=== PATIENT | female | born 1940 | race Caucasian/White ===

== ENCOUNTER 2016-06-19 13:05 | Inpatient (IN) | payer OTHER ==
[~2016-06-19] VITALS: Ht 167.6 cm; Wt 118.2 kg
[~2016-06-19 13:05] MED LIST: ASPI81TA21 PO; ATV/1 PO; CARV25TA2 PO; LPT/40 PO; MELO15TA3 PO; METF500T PO; MULTTAB58 PO; NEOM1SOL8 OT; ONDA4TAB46 PO; OXYC-643 PO; WARF3TAB PO; WARF4TAB8 PO; ZNT/150 PO; ZOLP5TAB PO
[2016-06-19] MEDS ORDERED: TRIA0.2580 PO (13:55)
[2016-06-19] MEDS ORDERED: CEFT1INJ26 IM (13:55)
[2016-06-19] MEDS ORDERED: ULT/50 PO (13:55)
[2016-06-19] MEDS ORDERED: APIX1TAB PO (13:55)
[2016-06-19] MEDS ORDERED: ACET500C6 PO (13:55)
--- NOTE | 2016-06-19 14:07 | DIAGNOSTIC IMAGING REPORT ---
CHEST ONE VIEW PORTABLE CLINICAL HISTORY: eval for pnea dyspnea COMPARISON STUDY: 05/03/2013 FINDINGS: Mild chronic megaly. Prominent pulmonary vasculature. Trace pleural fluid left base. IMPRESSION: Mild congestive heart failure Electronically signed by: Georges Conway M.D. 06/19/2016 2:06 PM Dictated Date/Time: 06/19/2016 2:06 PM
[2016-06-19 14:09] LABS: BASO % 0.2 %; BASO ABS # 0.02 K/uL (0-0.2); COMPLETE YES; EOS % 0.8 %; HEMATOCRIT 33.6 % (37-47); IG% 0.5 %; LYMPH % 19.7 %; LYMPH ABS # 2.34 K/uL (1.2-3.4); MEAN CELL VOLUME 85.9 fL (80-100); MEAN CORPUSCULAR HEMOGLOBIN 26.9 pg (25-34); MEAN CORPUSCULAR HGB CONC 31.3 g/dl (32-36); MEAN PLATELET VOLUME 9.5 fL (7.4-10.4); MONO % 10.2 %; NEUT % 68.6 %; PLATELET COUNT 484 K/uL (130-400); RED BLOOD COUNT 3.91 M/uL (4.2-5.4); WHITE BLOOD COUNT 11.86 K/uL (4.8-10.8)
--- NOTE | 2016-06-19 14:12 | DIAGNOSTIC IMAGING REPORT ---
CT SCAN OF THE BRAIN WITHOUT IV CONTRAST CLINICAL HISTORY: Change in mental status. COMPARISON STUDY: No priors. TECHNIQUE: Unenhanced axial CT scan of the brain is performed from the vertex to the skull base. CT DOSE: 537.48 mGy.cm FINDINGS: Brain parenchyma: There are age-related involutional changes noting mild to moderate patchy subcortical and periventricular microangiopathic change. There is no hemorrhage, mass effect, or evidence of acute territorial ischemia by CT criteria. Ramey-white matter is preserved. No extra-axial fluid collection is seen. Ventricles, sulci, cisterns: Prominent secondary to involutional change. Intracranial vasculature: There is atherosclerotic calcification of the cavernous carotid and vertebral arteries. Calvarium: Unremarkable. Sinuses and mastoids: The visualized paranasal sinuses are clear. The mastoid air cells are well pneumatized. Orbits: The bony orbits are grossly intact. There are bilateral ocular lens implants. IMPRESSION: There is no hemorrhage, mass effect, or evidence of acute territorial ischemia by CT criteria. Electronically signed by: Gee Hamilton M.D. 06/19/2016 2:10 PM Dictated Date/Time: 06/19/2016 2:08 PM
[2016-06-19 14:34] LABS: ALKALINE PHOSPHATASE 110 U/L (45-117); ALT/SGPT 83 U/L (12-78); AST/SGOT 56 U/L (15-37); BLOOD UREA NITROGEN 44 mg/dl (7-18); BUN/CREATININE RATIO 19.8 (10-20); CALCIUM 8.5 mg/dl (8.5-10.1); CARBON DIOXIDE 23 mmol/L (21-32); CHLORIDE 105 mmol/L (98-107); GLUCOSE 128 mg/dl (70-99); POTASSIUM 4.3 mmol/L (3.5-5.1); SODIUM 142 mmol/L (136-145)
[2016-06-19 14:37] LABS: URINE APPEARANCE CLEAR (CLEAR); URINE BILIRUBIN NEG (NEG); URINE COLOR YELLOW; URINE EPITHELIAL CELL AUTO 20-30 /lpf (0-5); URINE NITRITE NEG (NEG); URINE SPECIFIC GRAVITY 1.012 (1.000-1.030); UROBILINOGEN NEG (NEG)
[2016-06-19 14:39] LABS: MANUAL MICROSCOPIC REQUIRED? NO; REVIEW REQ? NO
[2016-06-19 15:20] LABS: INR 1.3 (0.9-1.1); PARTIAL THROMBOPLASTIN RATIO 1.1; PROTHROMBIN TIME (PATIENT) 13.8 SECONDS (9.0-12.0)
[2016-06-19] MEDS ORDERED: ACETAMINOPHEN 325 MG TAB PO PRN (16:00)
[2016-06-19] MEDS ORDERED: POLYETHYLENE (MIRALAX) 17 GM PACK PO PRN (16:00)
[2016-06-19] MEDS ORDERED: ONDANSETRON INJ 2 MG/ML 2 ML VIAL IV PRN (16:00)
[2016-06-19] MEDS ORDERED: ALUMINUM/MAGNESIUM/SIMETH (MAALOX MAX) 30 ML UDC PO PRN (16:00)
[2016-06-19] MEDS ORDERED: MAGNESIUM HYDROXIDE SUSP 30 ML UDC PO PRN (16:00)
--- NOTE | 2016-06-19 16:09 | EMERGENCY ROOM VISIT NOTE ---
History Report prepared by Kirill: Carmelita Crowder Under the Supervision of: Dr. Curt Lopez M.D. First contact with patient: 13:32 Chief Complaint: ALTERED MENTAL STATUS Stated Complaint: ALTERED MENTAL STATUS/ CRITICAL LABS Nursing Triage Summary: Pt arrives for evaluation of AMS. Pt was d/c'd from [facility] yesterday. [facility] reported pt is confused, combative with increased WNC. Pt arrives alert to person only. At this time cooperative with care. Pt refused medications this am at [facility]. PMH: Afib/controlled rate. DM non insulin DM. Daughter reports the last few weeks pt has been alert to person only. Frequent UTIs. Was treated for UTI at [facility]. History of Present Illness The patient is a 75 year old female who presents to the Emergency Room with complaints of worsening altered mental status over the past several days. Per patient's daughters, the patient was acting normally and living/driving independently around [place] time. On May 21, the patient was admitted to [facility] for short-term rehab. Her daughters state that the patient started to have some trouble living by herself and had multiple falls. The patient went back to living by herself after that and was walking with a walker. Over the last couple of weeks, the patient has become increasingly confused. She was admitted to [facility] this 6 days ago for a UTI and was put on Zosyn. The patient had a CT head which was unremarkable. The patient was discharged from [place] yesterday and was admitted to [facility] yesterday. Last evening, the patient refused to take any of her medications. Since then she has been agitated and occasionally combative with staff. Her daughters note that she is not on any medications that would change her mental status, although she is on 1 mg Ativan PRN for anxiety and agitation, which she typically takes once a day. Her daughters note that her confusion has been waxing and waning recently but overall has been getting worse. They initially thought her confusion was related to her UTI; however, she has been on Zosyn for several days and her daughters have not noticed any improvement in her mental status. The patient did have fevers Sunday and Sunday of last week during her hospital admission but has been afebrile since then. Currently, the patient complains of a frontal headache and says she gets a headache every day. The patient has not eaten in about 3 days. Her family notes that her baseline creatinine is 1.7-1.9 but is now 2.4. Her SED rate is 102. Denies chest pain, vomiting, abdominal pain, rash, or other complaints. The patient is on 2.5 mg Eliquis twice a day for a-fib. History limited secondary to altered mental status. Source of History: patient, family (daughters) History Limited By: AMS Onset: several days [employer] Position: other (global ) Quality: other (confusion) Timing: worsening Associated Symptoms: + headache, No abdominal pain, No chest pain, No rash, No vomiting Review of Systems Limited secondary to altered mental status. Past Medical & Surgical Medical Problems: (1) Altered mental status (2) Atrial fibrillation (3) Cardiomyopathy (4) CKD (chronic kidney disease) (5) DM w/o complication type II (6) DVT (deep venous thrombosis) (7) Dyslipidemia (8) Lymphedema (9) Obesity (10) PE (pulmonary embolism) (11) TIA (transient ischemic attack) Surgical Problems: (1) H/O cardiac catheterization (2) Hip joint replacement status (3) S/P TKR (total knee replacement) Family History No pertinent family history stated. Social History Smoking Status: Never Smoker Alcohol Use: occasionally Drug Use: none Marital Status: Housing Status: lives alone Occupation Status: retired Current/Historical Medications Scheduled Apixaban (Eliquis), 2.5 MG PO BID Aspirin Enteric Coated (Ecotrin Or Generic), 81 MG PO DAILY Atorvastatin (Lipitor), 40 MG PO DAILY Carvedilol (Coreg), 25 MG PO BID Ceftriaxone Sodium (Rocephin), 1 GM IM DAILY Lorazepam (Ativan), 1 MG PO QID PRN Multiple Vitamin (Multivitamin), 1 TAB PO DAILY Qcayjdgi-Azxjwsqfo-By (Otic) (Antibiotic Ear), 1 DROP OT UD Ranitidine Hcl (Zantac), 150 MG PO DAILY Triazolam (Triazolam), 0.25 MG PO HS Scheduled PRN Acetaminophen (Acetaminophen), 500 MG PO BID PRN for Pain Tramadol Hcl (Ultram), 50 MG PO BID PRN for Pain Allergies Coded Allergies: Morphine (Unverified Allergy, Intermediate, VOMITING, 06/19/16) Adhesives (Verified Allergy, Unknown, RASH, 06/19/16) Digoxin (Unverified Adverse Reaction, Severe, DIGTOXIC, 06/19/16) Physical Exam Vital Signs Date Time Temp Pulse Resp B/P Pulse Ox O2 Delivery O2 Flow Rate FiO2 06/19/16 14:22 96 22 141/84 99 Room Air 06/19/16 13:20 Room Air 06/19/16 13:17 93 06/19/16 13:10 36.6 81 20 148/86 96 Room Air Physical Exam Limited exam secondary to mental status. Constitutional: Vital signs reviewed. Eyes: Pupils are equal round reactive to light. Conjunctiva are noninjected. ENT: Mucous membranes are slightly dry. Neck supple without meningeal signs. Respiratory: Clear to auscultation bilaterally. Breath sounds are equal bilaterally. Cardiovascular: Irregularly irregular rhythm. Normal rate. No rubs or gallops. GI: Soft, nondistended and nontender. Bowel sounds are present. Musculoskeletal: Bilateral ankle edema. No lower extremity tenderness. Integumentary: No cyanosis. Neurological: Doesn't follow commands, grossly neurologically intact, awake and alert but very confused. No facial droop or obvious cranial nerve abnormality. Psychiatric: Unable to assess due to mental status. Medical Decision & Procedures ER Provider Diagnostic Interpretation: X-ray results as stated below per interpretation by me and the radiologist. Other radiology results as stated below per my review and the radiologist's interpretation: CT SCAN OF THE BRAIN WITHOUT IV CONTRAST CLINICAL HISTORY: Change in mental status. COMPARISON STUDY: No priors. TECHNIQUE: Unenhanced axial CT scan of the brain is performed from the vertex to the skull base. CT DOSE: 537.48 mGy.cm FINDINGS: Brain parenchyma: There are age-related involutional changes noting mild to moderate patchy subcortical and periventricular microangiopathic change. There is no hemorrhage, mass effect, or evidence of acute territorial ischemia by CT criteria. Ramey-white matter is preserved. No extra-axial fluid collection is seen. Ventricles, sulci, cisterns: Prominent secondary to involutional change. Intracranial vasculature: There is atherosclerotic calcification of the cavernous carotid and vertebral arteries. Calvarium: Unremarkable. Sinuses and mastoids: The visualized paranasal sinuses are clear. The mastoid air cells are well pneumatized. Orbits: The bony orbits are grossly intact. There are bilateral ocular lens implants. IMPRESSION: There is no hemorrhage, mass effect, or evidence of acute territorial ischemia by CT criteria. Electronically signed by: Gee Hamilton M.D. 06/19/2016 2:10 PM Dictated Date/Time: 06/19/2016 2:08 PM CHEST ONE VIEW PORTABLE CLINICAL HISTORY: eval for pnea dyspnea COMPARISON STUDY: 05/03/2013 FINDINGS: Mild chronic megaly. Prominent pulmonary vasculature. Trace pleural fluid left base. IMPRESSION: Mild congestive heart failure Electronically signed by: Georges Conway M.D. 06/19/2016 2:06 PM Dictated Date/Time: 06/19/2016 2:06 PM Laboratory Results 06/19/16 13:24 Red Blood Count 3.91, Mean Corpuscular Volume 85.9, Mean Corpuscular Hemoglobin 26.9, Mean Corpuscular Hemoglobin Concent 31.3, Mean Platelet Volume 9.5, Neutrophils (%) (Auto) 68.6, Lymphocytes (%) (Auto) 19.7, Monocytes (%) (Auto) 10.2, Eosinophils (%) (Auto) 0.8, Basophils (%) (Auto) 0.2, Neutrophils # (Auto ) 8.13, Lymphocytes # (Auto) 2.34, Monocytes # (Auto) 1.21, Eosinophils # (Auto ) 0.10, Basophils # (Auto) 0.02 06/19/16 13:24 Test 06/19/16 13:24 06/19/16 13:55 06/19/16 14:14 06/19/16 14:46 White Blood Count 11.86 K/uL (4.8-10.8) Red Blood Count 3.91 M/uL (4.2-5.4) Hemoglobin 10.5 g/dL (12.0-16.0) Hematocrit 33.6 % (37-47) Mean Corpuscular Volume 85.9 fL (80-100) Mean Corpuscular Hemoglobin 26.9 pg (25-34) Mean Corpuscular Hemoglobin Concent 31.3 g/dl (32-36) Platelet Count 484 K/uL (130-400) Mean Platelet Volume 9.5 fL (7.4-10.4) Neutrophils (%) (Auto) 68.6 % Lymphocytes (%) (Auto) 19.7 % Monocytes (%) (Auto) 10.2 % Eosinophils (%) (Auto) 0.8 % Basophils (%) (Auto) 0.2 % Neutrophils # (Auto) 8.13 K/uL (1.4-6.5) Lymphocytes # (Auto) 2.34 K/uL (1.2-3.4) Monocytes # (Auto) 1.21 K/uL (0.11-0.59) Eosinophils # (Auto) 0.10 K/uL (0-0.5) Basophils # (Auto) 0.02 K/uL (0-0.2) RDW Standard Deviation 50.0 fL (36.4-46.3) RDW Coefficient of Variation 16.2 % (11.5-14.5) Immature Granulocyte % (Auto) 0.5 % Immature Granulocyte # (Auto) 0.06 K/uL (0.00-0.02) Anion Gap 14.0 mmol/L (3-11) Est Creatinine Clear Calc Drug Dose 28.3 ml/min Estimated GFR () 24.3 Estimated GFR (Non- 20.9 BUN/Creatinine Ratio 19.8 (10-20) Calcium Level 8.5 mg/dl (8.5-10.1) Total Bilirubin 0.4 mg/dl (0.2-1) Direct Bilirubin mg/dl (0-0.2) Aspartate Amino Transf (AST/SGOT) 56 U/L (15-37) Alanine Aminotransferase (ALT/SGPT) 83 U/L (12-78) Alkaline Phosphatase 110 U/L (45-117) Troponin I < 0.015 ng/ml (0-0.045) Total Protein 6.2 gm/dl (6.4-8.2) Albumin 1.7 gm/dl (3.4-5.0) Thyroid Stimulating Hormone (TSH) 6.370 uIu/ml (0.300-4.500) Free Thyroxine 1.07 ng/dl (0.80-1.60) Chemistry Specimen Hemolysis Influenza Type A Antigen Neg for Influ A (NEG) Influenza Type B Antigen Neg for Influ B (NEG) Urine Color YELLOW Urine Appearance CLEAR (CLEAR) Urine pH 5.0 (4.5-7.5) Urine Specific [place] 1.012 (1.000-1.030) Urine Protein NEG (NEG) Urine Glucose (UA) NEG (NEG) Urine Ketones NEG (NEG) Urine Occult Blood NEG (NEG) Urine Nitrite NEG (NEG) Urine Bilirubin NEG (NEG) Urine Urobilinogen NEG (NEG) Urine Leukocyte Esterase SMALL (NEG) Urine WBC (Auto) 10-30 /hpf (0-5) Urine RBC (Auto) 0-4 /hpf (0-4) Urine Hyaline Casts (Auto) 1-5 /lpf (0-5) Urine Epithelial Cells (Auto) 20-30 /lpf (0-5) Urine Bacteria (Auto) NEG (NEG) Prothrombin Time 13.8 SECONDS (9.0-12.0) Prothromb Time International Ratio 1.3 (0.9-1.1) Activated Partial Thromboplast Time 28.3 SECONDS (21.0-31.0) Partial Thromboplastin Ratio 1.1 Laboratory results as reviewed by me. ECG Indication: altered mental status Rate (beats per minute): 81 Rhythm: atrial fibrillation Findings: other (low voltage QRS, nonspecific T wave changes) ED Course 1334: The patient was evaluated in room A1. A complete history and physical exam was performed. 1345: I reviewed notes from Dr. Tompkins from today. He said that she has had declining mental status since of last year. She was seen by Dr. Gupta on May 22 who ordered EMG nerve conduction studies but she declined at a later date. After evaluation today today he felt that she needed to be hospitalized. He talked to Dr. Haynes of the Hospitalist group who requested that the patient be transferred here. 1444: I talked to the patient and her daughters about test results. They agree with the treatment plan. 1520: I discussed the case with Dr. Choi - [facility] Hospitalist. The patient will be evaluated for further management. Medical Decision This is a 75-year-old male who presents with altered mental status for about a week and a half. Differential diagnosis includes delirium, encephalopathy, infection, UTI, pneumonia, age cranial hemorrhage, intracranial mass, CVA. I did perform a limited focused review of portions of the patient's old chart on the electronic medical record. The patient has had no recent pertinent visits to this hospital. I did evaluate the patient as noted above. I did obtain history from the patient's daughters due to her mental status. I also reviewed the note from Dr. Tompkins from today. He had sent the patient here for admission to the hospital for further workup. He did speak to hospitalist but the hospitalist requested that she come through the emergency department. IV access was established. The patient was placed on a continuous rn home care. I did order and personally review the patient's 12-lead EKG and chest x-ray as described above. I did order and review the patient's blood work as noted in the electronic medical record. Her creatinine is somewhat elevated. She is anemic. Her white blood cell count is slightly elevated. I did order a CT of the head. I did review the images myself as well as the radiology report as described above. There is no evidence of bleed. I did discuss the test results with the patient and her daughters. I did discuss the case with Dr. Gifford for further evaluation in the hospital. Consults Time Called: 1440 Consulting Physician: Dr. Jimbo Varner [facility] Hospitalist Returned Call: 1520 I discussed the case with him. He will be evaluated for further management. Impression Primary Impression: Altered mental status Additional Impressions: Creatinine elevation Anemia Scribe Attestation The scribe's documentation has been prepared under my direct and personally reviewed by me in its entirety. I confirm that the note above accurately reflects all work, treatment, procedures, and medical decision making performed by me. Departure Information Dispostion Being Evaluated By Hospitalist Referrals Ray Pierson M.D. (PCP) Patient Instructions [facility] Problem Qualifiers Primary Impression: Altered mental status Altered mental status type: unspecified Qualified Codes: R41.82 - Altered mental status, unspecified
[2016-06-19] MEDS ORDERED: LORAZEPAM 2 MG/ML 1 ML VIAL IV PRN (16:15)
--- NOTE | 2016-06-19 17:23 | DIAGNOSTIC IMAGING REPORT ---
MRI OF THE BRAIN WITHOUT CONTRAST CLINICAL HISTORY: Acute change in mental status. COMPARISON STUDY: CT scan dated 06/19/2016 FINDINGS: The examination is compromised secondary to patient motion artifact Sagittal T1, axial diffusion, proton density and T2 weighted axial, coronal FLAIR, and axial T1-weighted images were acquired. No intra or extra-axial mass lesions are visualized Axial diffusion-weighted images reveal no evidence of acute or subacute infarction. There is no evidence of ventricular dilatation. Proton density T2-weighted and FLAIR images reveal scattered foci of increased T2 signal within the white matter, likely on a small vessel basis. There are no abnormal flow voids. IMPRESSION: 1. No acute intracranial findings 2. No evidence of acute or subacute infarction 3. No evidence of intracranial mass. Electronically signed by: Chadwick Morris M.D. 06/19/2016 5:21 PM Dictated Date/Time: 06/19/2016 5:19 PM
--- NOTE | 2016-06-19 17:44 | DIAGNOSTIC IMAGING REPORT ---
CT SCAN OF THE ABDOMEN AND PELVIS WITHOUT CONTRAST CLINICAL HISTORY: ABNORMAL LFT'S, ELEVATED ESR COMPARISON STUDY: 05/02/2013 TECHNIQUE: CT scan of the abdomen and pelvis was performed from the lung bases to the proximal femurs. Images are reviewed in the axial, sagittal, and coronal planes. IV contrast was not administered for this examination. CT DOSE: 1805.50 mGy.cm FINDINGS: Lower chest: There is a moderate left pleural effusion and wall right pleural effusion. The heart is enlarged. There are coronary artery calcifications present. Liver: The unenhanced liver is normal in size, contour, and attenuation. There is no intrahepatic biliary ductal dilatation. Gallbladder: Surgically absent Spleen: Normal in size and attenuation. Pancreas: Unremarkable. Adrenal glands: Unremarkable. Kidneys: There is a 16 mm obstructing proximal left ureteral calculus. There is a subcapsular left renal fluid collection, likely representing hemorrhage. There is a left-sided retroperitoneal collection measuring 10 x 10 x 4 cm, likely representing a retroperitoneal hemorrhage. Bowel: There are no transition zones indicate bowel obstruction. There is colonic diverticulosis. There are no acute peridiverticular inflammatory changes. Peritoneum: There is a small amount of free fluid. This exceeds water density and likely reflects a small hemoperitoneum. Vasculature: The abdominal aorta is normal in course and caliber. Adenopathy: None. Pelvic viscera: The bladder, and pelvic viscera are unremarkable. Skeletal structures: There are postsurgical changes of a total right hip arthroplasty. There is air within the left gluteal region, likely iatrogenic. There is diffuse subcutaneous edema. The examination is limited from a technical standpoint secondary to motion artifact, as well as the lack of intravenous and orally administered contrast IMPRESSION: 1. Cardiomegaly, coronary artery calcifications, and bilateral pleural effusions left greater than right 2. Obstructing 16 mm proximal left ureteral calculus. There is a subcapsular left renal fluid collection likely representing a subcapsular hematoma. There is a left retroperitoneal collection measuring 10 x 10 x 4 cm, likely representing a retroperitoneal hemorrhage 3. There is a small amount of free fluid within the pelvis likely representing hemoperitoneum 4. No evidence of bowel obstruction. No evidence of free air 5. Diverticulosis. No evidence of acute diverticulitis Electronically signed by: Chadwick Morris M.D. 06/19/2016 5:43 PM Dictated Date/Time: 06/19/2016 5:36 PM
[2016-06-19 17:46] VITALS: BP 134/84; PULSE 80; TEMP 36.6; O2SAT 95; Ht 167.6 cm; Wt 118.2 kg
[2016-06-19] MEDS ORDERED: VANCOMYCIN CONSULT ACTIVE PRN (19:00)
[2016-06-19] MEDS ORDERED: VANCOMYCIN INJ 2,400 MG in SODIUM CHLORIDE 0.9% 500ML 500 ML IV SCH (19:00)
[2016-06-19] MEDS ORDERED: PIPERACILL/TAZOBAC CONSULT ACTIVE PRN (19:00)
[2016-06-19 19:24] LABS: HEMATOCRIT 34.4 % (37-47)
[2016-06-19] MEDS: ALBUMIN HUMAN 25% 12.5 GM/50 ML VIAL IV SCH ×3 (19:28→23:47)
[2016-06-19] MEDS: LORAZEPAM 2 MG/ML 1 ML VIAL IV PRN (19:43)
[2016-06-19 19:45] VITALS: BP 137/70; PULSE 69; TEMP 36.4; O2SAT 96
[2016-06-19 20:00] VITALS: O2SAT 96
[2016-06-19] MEDS ORDERED: PIPERACILL/TAZOBAC IV 3.375 GM in DEXTROSE 5% 100ML IV ONE (20:00)
--- NOTE | 2016-06-19 20:06 | Urology Consultation ---
Urology Consultation Consult dictated Left stone present since 2012 pt denies flank pain No hydro appreciated ? perinephric hematoma possibly secondary to fall no sign of sepsis ie normal BP and Pulse no fever No need for emergent urologic intervention Continue antibiotics Check serial hct.
--- NOTE | 2016-06-19 20:09 | History and Physical ---
History & Physical Date & Time of Service: Jun 19, 2016 at 19:55 Chief Complaint: Altered Mental Status Primary Care Physician: Ray Pierson M.D. History of Present Illness Source: family, clinic records Ms. Aviles is a 75 y/o female with PMHx of Persistent Atrial Fibrillation, T2DM, HLD, CKD Stage Unknown who presents from [facility] due to AMS and abnormal labs. HPI obtained from daughter as patient is confused and unable to contribute. Daughter states that patient was independent with ADLs and driving around [place] however they were concerned with falls at home. On May 21, 2016 she was admitted to [facility] for strengthening and rehab in hopes to continue to remain at home. Family noticed a rapid decline and worsening of mentation and weakness while at [facility]. Daughter reports that she nearly fell trying to get her in the car when leaving [facility]. She did return home and was utilizing a walker for ambulation. Family started noticing increased confusion as the days went on and reports frequent urination. She was admitted to [facility] for treatment of a UTI. Per daughter she was told the culture was sensitive to Zosyn that was given in hospital and she was to be converted to Rocephin daily x 7 days when she went to [facility]. Family did not notice a change in mentation even with treatment for the UTI. She was discharged from [facility] on 06/18 and currently resides at [facility]. Per family and [facility] notes patient has been confused, agitated, and combative. She was unable to take this AMs medications due to the agitation. Oral intake has been decreased over the past 3 days. Per [facility] notes: Cr baseline 1.7-1.9 and Sed Rate of 102 with repeat at 99. In the ED, patient labs with mild leukocytosis. H&H of 10.5/33.6. Platelets of 484. BUN/Cr of 44/2.20. Elevated TSH with unremarkable Free T4. Albumin 1.7. CXR suggestive of congestive heart failure. Head CT without acute intracranial findings. She will be admitted to telemetry for further evaluation and care. Past Medical/Surgical History Medical Problems: (1) Atrial fibrillation Status: Chronic (2) Cardiomyopathy Permanent Comment: echo - eF - 40- 45% (09/19/2012) Status: Chronic (3) CKD (chronic kidney disease) Status: Chronic (4) DM w/o complication type II Status: Chronic (5) DVT (deep venous thrombosis) Status: Resolved (6) Dyslipidemia Status: Chronic (7) Lymphedema Status: Chronic (8) Obesity Status: Chronic (9) PE (pulmonary embolism) Status: Resolved (10) TIA (transient ischemic attack) Permanent Comment: november 2012 Status: Resolved Surgical Problems: (1) H/O cardiac catheterization Permanent Comment: [place] 2005 - as per patient - this was normal Status: Resolved (2) Hip joint replacement status Permanent Comment: RIGHT Status: Resolved (3) S/P TKR (total knee replacement) Permanent Comment: BILATERAL Status: Resolved Social History Smoking Status: Never Smoker Smokeless Tobacco Use: No Alcohol Use: none Drug Use: none Marital Status: Housing status: lives alone Occupational Status: retired Immunizations History of Influenza Vaccine: Yes Influenza Vaccine Date: Mar 02, 2013 History of Tetanus Vaccine?: Yes Tetanus Immunization Date: May 02, 2011 History of Pneumococcal: Yes Pneumococcal Date: May 02, 2011 History of Hepatitis B Vaccine: No Allergies Coded Allergies: Morphine (Unverified Allergy, Intermediate, VOMITING, 06/19/16) Adhesives (Verified Allergy, Unknown, RASH, 06/19/16) Digoxin (Unverified Adverse Reaction, Severe, DIGTOXIC, 06/19/16) Home Medications Scheduled Apixaban (Eliquis), 2.5 MG PO BID Aspirin Enteric Coated (Ecotrin Or Generic), 81 MG PO DAILY Atorvastatin (Lipitor), 40 MG PO DAILY Carvedilol (Coreg), 25 MG PO BID Ceftriaxone Sodium (Rocephin), 1 GM IM DAILY Lorazepam (Ativan), 1 MG PO QID PRN Multiple Vitamin (Multivitamin), 1 TAB PO DAILY Ruruzasy-Abysbxdxm-Dd (Otic) (Antibiotic Ear), 1 DROP OT UD Ranitidine Hcl (Zantac), 150 MG PO DAILY Triazolam (Triazolam), 0.25 MG PO HS Scheduled PRN Acetaminophen (Acetaminophen), 500 MG PO BID PRN for Pain Tramadol Hcl (Ultram), 50 MG PO BID PRN for Pain Review of Systems Deferred due to AMS. She HPI. Physical Exam Vital Signs Date Time Temp Pulse Resp B/P Pulse Ox O2 Delivery O2 Flow Rate FiO2 06/19/16 19:45 36.4 69 18 137/70 96 Room Air 06/19/16 17:46 36.6 80 20 134/84 95 Room Air 06/19/16 16:20 79 18 118/79 94 Room Air 06/19/16 14:22 96 22 141/84 99 Room Air 06/19/16 13:20 Room Air 06/19/16 13:17 93 06/19/16 13:10 36.6 81 20 148/86 96 Room Air General Appearance: WD/WN, no apparent distress, + obese Head: normocephalic, atraumatic Eyes: PERRL, sclerae normal ENT: hearing grossly normal Neck: supple, no JVD, trachea midline Respiratory/Chest: no respiratory distress, no accessory muscle use, + decreased breath sounds (bases bilat) Cardiovascular: no gallop, no murmur, + irregularly irregular Abdomen/GI: normal bowel sounds, non tender, soft Extremities/Musculoskelatal: + swelling (trace lower extremity edema; large calves that are soft/non-tender/lymphadema) Neurologic/Psych: alert, + disoriented Skin: normal color, warm/dry Diagnostics Laboratory Results Results Past 24 Hours Test 06/19/16 13:24 06/19/16 13:55 06/19/16 14:14 06/19/16 14:46 Range/Units White Blood Count 11.86 4.8-10.8 K/uL Red Blood Count 3.91 4.2-5.4 M/uL Hemoglobin 10.5 12.0-16.0 g/dL Hematocrit 33.6 37-47 % Mean Corpuscular Volume 85.9 80-100 fL Mean Corpuscular Hemoglobin 26.9 25-34 pg Mean Corpuscular Hemoglobin Concent 31.3 32-36 g/dl Platelet Count 484 130-400 K/uL Mean Platelet Volume 9.5 7.4-10.4 fL Neutrophils (%) (Auto) 68.6 % Lymphocytes (%) (Auto) 19.7 % Monocytes (%) (Auto) 10.2 % Eosinophils (%) (Auto) 0.8 % Basophils (%) (Auto) 0.2 % Neutrophils # (Auto) 8.13 1.4-6.5 K/uL Lymphocytes # (Auto) 2.34 1.2-3.4 K/uL Monocytes # (Auto) 1.21 0.11-0.59 K/uL Eosinophils # (Auto) 0.10 0-0.5 K/uL Basophils # (Auto) 0.02 0-0.2 K/uL RDW Standard Deviation 50.0 36.4-46.3 fL RDW Coefficient of Variation 16.2 11.5-14.5 % Immature Granulocyte % (Auto) 0.5 % Immature Granulocyte # (Auto) 0.06 0.00-0.02 K/uL Sodium Level 142 136-145 mmol/L Potassium Level 4.3 3.5-5.1 mmol/L Chloride Level 105 98-107 mmol/L Carbon Dioxide Level 23 21-32 mmol/L Anion Gap 14.0 3-11 mmol/L Blood Urea Nitrogen 44 7-18 mg/dl Creatinine 2.20 0.60-1.20 mg/dl Est Creatinine Clear Calc Drug Dose 28.3 ml/min Estimated GFR () 24.3 Estimated GFR (Non- 20.9 BUN/Creatinine Ratio 19.8 10-20 Random Glucose 128 70-99 mg/dl Calcium Level 8.5 8.5-10.1 mg/dl Total Bilirubin 0.4 0.2-1 mg/dl Direct Bilirubin 0-0.2 mg/dl Aspartate Amino Transf (AST/SGOT) 56 15-37 U/L Alanine Aminotransferase (ALT/SGPT) 83 12-78 U/L Alkaline Phosphatase 110 45-117 U/L Troponin I < 0.015 0-0.045 ng/ml Total Protein 6.2 6.4-8.2 gm/dl Albumin 1.7 3.4-5.0 gm/dl Thyroid Stimulating Hormone (TSH) 6.370 0.300-4.500 uIu/ml Free Thyroxine 1.07 0.80-1.60 ng/dl Chemistry Specimen Hemolysis Influenza Type A Antigen Neg for Influ A NEG Influenza Type B Antigen Neg for Influ B NEG Urine Color YELLOW Urine Appearance CLEAR CLEAR Urine pH 5.0 4.5-7.5 Urine Specific [place] 1.012 1.000-1.030 Urine Protein NEG NEG Urine Glucose (UA) NEG NEG Urine Ketones NEG NEG Urine Occult Blood NEG NEG Urine Nitrite NEG NEG Urine Bilirubin NEG NEG Urine Urobilinogen NEG NEG Urine Leukocyte Esterase SMALL NEG Urine WBC (Auto) 10-30 0-5 /hpf Urine RBC (Auto) 0-4 0-4 /hpf Urine Hyaline Casts (Auto) 1-5 0-5 /lpf Urine Epithelial Cells (Auto) 20-30 0-5 /lpf Urine Bacteria (Auto) NEG NEG Prothrombin Time 13.8 9.0-12.0 SECONDS Prothromb Time International Ratio 1.3 0.9-1.1 Activated Partial Thromboplast Time 28.3 21.0-31.0 SECONDS Partial Thromboplastin Ratio 1.1 Test 06/19/16 19:00 06/19/16 19:15 Range/Units Hemoglobin 10.9 12.0-16.0 g/dL Hematocrit 34.4 37-47 % Microbiology Results 06/19/16 Urine Culture, Received Pending EKG Atrial fibrillation Left axis deviation Low voltage QRS Nonspecific T wave abnormality Abnormal ECG When compared with ECG of 04-MAY-2013 07:12, Atrial fibrillation has replaced Sinus rhythm Confirmed by DONAL CORDERO MD ([id number]) on 06/19/2016 2:45:26 PM Impression Assessment and Plan Ms. Aviles is a 75 y/o female with PMHx of Persistent Atrial Fibrillation, T2DM, HLD, CKD Stage Unknown who presents from [facility] due to AMS and abnormal labs. In the ED, patient labs with mild leukocytosis. H&H of 10.5/ 33.6. Platelets of 484. BUN/Cr of 44/2.20. Elevated TSH with unremarkable Free T4. Albumin 1.7. CXR suggestive of congestive heart failure. Head CT without acute intracranial findings. She will be admitted to telemetry for further evaluation and care. Altered Mental Status: Multifactorial - Infectious vs CVA vs PMR - Outpatient labs revealed elevation of sed rate and was seen by neuro for proximal muscle weakness - will repeat ESR consideration for steroids? -- CT without significant findings suggestive of CVA - concern for cancerous cause - MRI Brain - image and report reviewed - negative for acute intracranial findings - CT Abd/Pelvis - image and report reviewed - moderate L pleural effusions with R pleural effusion noted; 16 mm obstructing proximal L ureteral calculi with subcapsular L renal fluid likely hemorrhage - retroperitoneal hemorrhage 10 x 10 x 4 cm - UA largely unremarkable - however Cx pending Obstructing Renal Calculi with Retroperitoneal Hemorrhage and Acute Kidney Injury: - Zosyn and Vanc per pharmacy dosing - Hold Eliquis 2.5 mg BID and ASA 81 mg daily - per notes patient combative and did not take AM meds - Discussed case with Dr. Mora for recommendations for [facility] -- Evidence does not support use with Eliquis and benefit/harm does not support use -- Anti-Xa to evaluate Eliquis level - Serial H&H - Type and Screen - Albumin 25 g IV Q6H x 4 doses (Albumin 1.7) - will defer implementing dual Lasix therapy in setting of Cr -- Concern for hemodynamic instability in setting of retroperitoneal hemorrhage - Monitor BMP - Urology Consult - discussed case with Dr. Wells Persistent Atrial Fibrillation: - Per [place] patient is on Digoxin - family reports recent digoxin toxicity and has be D/C'd per Dr. Lnud -- WILL NEED EXPRESSED TO [facility] - Coreg 25 mg BID - this was initiated instead for rate control T2DM: - Patient has been on Glipizide in the past but has had frequent hypoglycemic episodes -- AM glucose elevated but drops drastically in afternoon into evening and currently watching glucose - Accu-checks - will withhold SSI as family reports that even with SSI at [facility] similar events occurred DVT Prophylaxis: - Withhold 2/2 retroperitoneal hemorrhage Code Status: - DO NOT RESUSCITATE Level of Care Telemetry Advanced Directives Existing Advance Directive: Yes Existing Living Will: Yes Existing Power of It Applications Developer: Yes Resuscitation Status DO NOT RESUSCITATE VTE Prophylaxis VTE Risk Assessment Done? Y/N: Yes Risk Level: Moderate Given or contraindicated: SCD's Assessment and Plan Attending Addendum: I have physically seen and examined this patient, have directed their medical care, have supervised the PA's activity, and agree with the H&P as noted above, with the following changes: NONE.
[2016-06-19] MEDS: CARVEDILOL 25 MG TAB PO SCH (21:00)
[2016-06-19] MEDS ORDERED: APIXABAN 2.5 MG TAB PO SCH (21:00)
[2016-06-19] MEDS ORDERED: PNEUMOCOCCAL ADMINISTRATION CHARGE ONE (23:15)
[2016-06-19] MEDS ORDERED: PNEUMOCOCCAL POLYSACCHARIDES 25 MCG/0.5 ML VIAL/SYR IM. ONE (23:15)
--- NOTE | 2016-06-19 23:25 | Pharmacy Progress Note ---
Pharmacy Antibiotic Consult Date of Service: Jun 19, 2016. Pharmacy Dosing Scope Pharmacy is consulted to initiate vancomycin and Zosyn IV dosing therapy, order appropriate labs and adjust drug dose/frequency. Subjective The patient is a 75 year old female admitted on Jun 19, 2016 at 16:06 with altered mental status/complicated UTI. Objective Height (Feet): 5 Height (Inches): 6.00 Weight (Kilograms): 120.000 Lab Results (24hrs): Laboratory Tests Test 06/19/16 13:24 BUN/Creatinine Ratio 19.8 Blood Urea Nitrogen 44 mg/dl Creatinine 2.20 mg/dl White Blood Count 11.86 K/uL Red Blood Count 3.91 M/uL Hemoglobin 10.5 g/dL Hematocrit 33.6 % Mean Corpuscular Volume 85.9 fL Mean Corpuscular Hemoglobin 26.9 pg Mean Corpuscular Hemoglobin Concent 31.3 g/dl Platelet Count 484 K/uL Mean Platelet Volume 9.5 fL Neutrophils (%) (Auto) 68.6 % Lymphocytes (%) (Auto) 19.7 % Monocytes (%) (Auto) 10.2 % Eosinophils (%) (Auto) 0.8 % Basophils (%) (Auto) 0.2 % Neutrophils # (Auto) 8.13 K/uL Lymphocytes # (Auto) 2.34 K/uL Monocytes # (Auto) 1.21 K/uL Eosinophils # (Auto) 0.10 K/uL Basophils # (Auto) 0.02 K/uL Micro Results: Urine CX is pending Mrsa swab: neg Assessment & Plan On May 21, 2016 patient was admitted to [facility] for strengthening and rehab in hopes to continue to remain at home. Family noticed a rapid decline and worsening of mentation and weakness while at [facility]. Daughter reports that she nearly fell trying to get her in the car when leaving [facility]. She did return home and was utilizing a walker for ambulation. Family started noticing increased confusion as the days went on and reports frequent urination. She was admitted to [facility] for treatment of a UTI. Per daughter she was told the culture was sensitive to Zosyn that was given in hospital and she was to be converted to Rocephin daily x 7 days when she went to [facility]. Family did not notice a change in mentation even with treatment for the UTI. She was discharged from [facility] on 06/18 and currently resides at [facility]. Per family and [facility] notes patient has been confused, agitated, and combative. Vancomycin for complicated UTI: Loading dose: 2400 mg IV X 1 dose (~20mg/kg), dosed conservatively due to poor renal fx. Will obtain a vanco random level in AM and redose at that time if level is within or below trough goal. Goal peak level estimate: between 35 - 40 mcg/mL. Goal trough level estimate: between 15 - 20 mcg/mL. Peak and trough or random level has been ordered for: 06/20 with am labs. Pharmacy will continue to follow and will adjust dose/frequency as necessary. Thank you
[2016-06-20] VITALS (9 sets, daily range): BP systolic 117–157; BP diastolic 57–88; PULSE 61–79; TEMP 36.3–36.7; O2SAT 94–100
[2016-06-20] MEDS: ALBUMIN HUMAN 25% 12.5 GM/50 ML VIAL IV SCH ×5 (00:21→12:41)
[2016-06-20] MEDS: LORAZEPAM 2 MG/ML 1 ML VIAL IV PRN (01:02)
[2016-06-20 01:04] LABS: HEMATOCRIT 33.3 % (37-47)
[2016-06-20] MEDS: PIPERACILL/TAZOBAC IV 3.375 GM in DEXTROSE 5% 100ML 100 ML IV SCH ×3 (01:39→17:42)
--- NOTE | 2016-06-20 03:55 | GENITOURINARY CONSULTATION ---
DATE OF CONSULTATION: 06/19/2016 CHIEF COMPLAINT: Change of mental status. HISTORY OF PRESENT ILLNESS: The patient is a 75-year-old white female, who was admitted through the Emergency Room with complaints of worsening mental status over the past several days. Apparently, the patient had been living by herself up around [place] time and in May, was admitted to [facility] for short-term rehabilitation. She started having troubles living by herself and has had multiple falls. I have reviewed some notes from Dr. Tompkins that suggest that she has had some decline in her mental status since the beginning of May. The patient was actually admitted to [facility] 6 days ago for a UTI. Apparently, a CT scan of the head there was unremarkable. She was discharged from [place] yesterday and sent to [facility]. She became more agitated there, refusing to take her medications; so, her family brought her here. Currently, the patient will answer questions yes or no, but appears to be oriented only to person. So, I really cannot get any history from the patient. She does deny any flank pain or abdominal pain. ALLERGIES: MORPHINE, ADHESIVES AND DIGOXIN. CURRENT MEDICATIONS: Eliquis, aspirin, Lipitor, Coreg, Rocephin, Ativan, multivitamin, antibiotic in her ear, Zantac and triazolam. PAST MEDICAL AND SURGICAL HISTORY: Altered mental status, atrial fibrillation, cardiomyopathy, chronic kidney disease, diabetes, DVT, dyslipidemia, lymphedema, obesity, pulmonary embolism, TIA, history of cardiac catheterization, hip joint replacement and total knee replacement. FAMILY AND SOCIAL HISTORY: Never smoked. Uses alcohol occasionally. Was and lives alone. REVIEW OF SYSTEMS: I am unable to obtain from the patient. PHYSICAL EXAMINATION: GENERAL: She is a well-developed and well-nourished white female, in no acute distress. VITAL SIGNS: Temperature 36.6, pulse 81, respiratory rate 20, blood pressure 140/86, and pulse ox 96%. LUNGS: Clear to auscultation. She has normal respiratory effort. CARDIAC: Shows an irregular rhythm. Normal rate. There are no murmurs. ABDOMEN: Benign. LABORATORY DATA: She has a white count of 11.8 and hematocrit 33.6. Creatinine 2.2. Electrolytes are normal. She had a CT scan done, which shows a large proximal left ureteral calculus. I do not really see any hydronephrosis when I reviewed the films. She does have a left subcapsular fluid collection, which the radiologist believes is a hemorrhage and left retroperitoneal collection, also likely representing a retroperitoneal hemorrhage. I did review a CT scan done in 2012 and she did have the same stone present at that time again without any hydronephrosis and again, I do not appreciate any hydronephrosis on the CAT scan from today. ASSESSMENT: Left renal calculus. The patient currently does not appear toxic. She is afebrile. She has a normal blood pressure and she is not tachycardic. So, I do not think any type of emergency stenting is necessary. Also, I do not see any hydronephrosis. I believe this retroperitoneal bleed that she may have had probably was more of a result from her falling, which she has had several falls since the beginning of the year. I doubt that it is from the stone, since it has been present for years. At this point, I would continue her on her antibiotics, check a urine culture, and follow serial hematocrits. If the patient shows signs of sepsis, then she may need to have a stent placed, although again, currently, she does not look toxic and I really do not appreciate any hydronephrosis on the CAT scan. So, at this point, I think she needs to be given supportive care with IV antibiotics, fluids as needed and she will be reassessed in the morning. DESTIN
[2016-06-20 07:23] LABS: HEMATOCRIT 31.6 % (37-47); MEAN CELL VOLUME 88.3 fL (80-100); MEAN CORPUSCULAR HEMOGLOBIN 27.4 pg (25-34); MEAN PLATELET VOLUME 9.1 fL (7.4-10.4); PLATELET COUNT 379 K/uL (130-400); RED BLOOD COUNT 3.58 M/uL (4.2-5.4); WHITE BLOOD COUNT 8.47 K/uL (4.8-10.8)
[2016-06-20 07:53] LABS: CALCIUM 8.4 mg/dl (8.5-10.1); POTASSIUM 3.8 mmol/L (3.5-5.1)
[2016-06-20 07:54] LABS: C-REACTIVE PROTEIN 5.16 mg/dl (0-0.29)
[2016-06-20] MEDS ORDERED: PERFLUTREN LIPID MICROSPHERE (DEFINITY) IV ONE (07:58)
[2016-06-20] MEDS: MULTIVITAMIN TAB PO SCH ×2 (08:19→08:25)
[2016-06-20] MEDS: CARVEDILOL 25 MG TAB PO SCH ×2 (08:19→21:00)
[2016-06-20] MEDS: RANITIDINE HCL 150 MG TAB PO SCH ×2 (08:20→08:24)
[2016-06-20] MEDS ORDERED: ASPIRIN 81 MG ECTAB PO SCH (09:00)
[2016-06-20] MEDS ORDERED: CEFTRIAXONE SOD INJ 1 GM in DEXTROSE 5% ADD-VANTAGE 50ML 50 ML IV SCH (09:00)
[2016-06-20] MEDS: VANCOMYCIN INJ 1,550 MG in SODIUM CHLORIDE 0.9% 500ML 500 ML IV SCH (09:28)
--- NOTE | 2016-06-20 10:00 | ECHOCARDIOGRAM REPORT ---
*NOTICE TO RECEIVING [employer] This information is strictly Confidential and protected under [place] law. [place] law prohibits you from making any further disclosure of this information unless further disclosure is expressly permitted by the written consent of the person to whom it pertains or is authorized by law. A general authorization for the release of medical or other information is not sufficient for this purpose. Hospital accepts no responsibility if the information is made available to any other person, INCLUDING THE PATIENT. Interpretation Summary * Name: RACHELE WASHINGTON Study Date: 06/20/2016 07:38 AM BP: 135/63 mmHg * Patient Location: C.2E\S\E211\S\1 HR: 73 * : 1940 (M/d/yyyy) Gender: Female Height: 66 in * Age: 75 yrs Ethnicity: CA Weight: 265 lb * Ordering Physician: Digna Todd * Referring Physician: Self, Referred * Performed By: Celio Montez RCS * * Reason For Study: CHF * BSA: 2.3 m2 * -- Conclusions -- * 1. Normal LV size and wall thickness. * 2. Low normal LV function. LVEF 45-50%. Paradoxical septal motion. * 3. Normal RV size and function. * 4. Mild aortic valve sclerosis without stenosis. * 5. Normal estimted PA and RA pressures. * 6. No prior studies for comparison Procedure Details * A complete two-dimensional transthoracic echocardiogram was performed (2D, M-mode, Doppler and color flow Doppler). * There were technical limitations due to patient'sbody habitus * There were technical limitations due to patient's body habitus and supine positioning * A contrast injection of Definity was performed to improve assessment of LV function. * Contrast was injected into an intravenous site in the right arm. * One vial of Definity ultrasound contrast was diluted in normal saline to a total volume of 10 ml. A total of '2' ml of solution was administered during imaging. * Lot # [id number] of Definity utilized for procedure. * Expiration date 1DEC17. * The attending nurse who injected the contrast agent was ADE Yao RN. Left Ventricle * The left ventricle is grossly normal size. * There is normal left ventricular wall thickness. * Ejection Fraction = 45-50%. * Paradoxical septal motion Right Ventricle * The right ventricle is grossly normal size. * The right ventricular systolic function is normal as assessed by tricuspid annular plane systolic excursion (TAPSE) (normal >1.5 cm). Atria * The left atrial size is normal. * Right atrium not well visualized. * Right atrial size is normal. * A patent foramen ovale is suspected. Mitral Valve * The mitral valve is grossly normal. * There is mild mitral annular calcification. * There is no mitral valve stenosis. * There is trace mitral regurgitation. Tricuspid Valve * The tricuspid valve is not well visualized, but is grossly normal. * There is no tricuspid stenosis. * There is trace tricuspid regurgitation. Aortic Valve * The aortic valve is trileaflet. * Aortic valve sclerosis mild, without significant aortic valvular stenosis. * No hemodynamically significant valvular aortic stenosis. * There is no significant aortic regurgitation. Pulmonic Valve * The pulmonary valve is inadequately visualized, but the Doppler data is adequate for interpretation. * There is no pulmonic valvular stenosis. * Trace pulmonic valvular regurgitation. Great Vessels * The aortic root and proximal ascending aorta are normal sized. Pericardium/Pleural * There is no pericardial effusion. * Moderate size left pleural effusion. Great Vessels * Normal inferior vena cava size and collapsability with sniff indicates a normal right atrial pressure of 3 mmHg MMode 2D Measurements and Calculations IVSd 1.1 cm IVSs 1.0 cm LVIDd 4.3 cm LVIDs 3.3 cm LVPWd 1.0 cm LVPWs 0.92 cm IVS/LVPW 1.1 FS 23.0 % EDV(Teich) 85.2 ml ESV(Teich) 45.6 ml EF(Teich) 46.4 % EDV(cubed) 82.1 ml ESV(cubed) 37.5 ml EF(cubed) 54.4 % % IVS thick -9.36 % % LVPW thick -12.46 % LV mass(C)d 164.5 grams LV mass(C)dI 73.0 grams/m\S\2 LV mass(C)s 93.1 grams LV mass(C)sI 41.3 grams/m\S\2 CO(Teich) 2.7 l/min CI(Teich) 1.2 l/min/m\S\2 SV(Teich) 39.6 ml SI(Teich) 17.6 ml/m\S\2 CO(cubed) 3.0 l/min CI(cubed) 1.3 l/min/m\S\2 SV(cubed) 44.7 ml SI(cubed) 19.8 ml/m\S\2 Ao root diam 3.6 cm Ao root area 10.4 cm\S\2 ACS 1.9 cm LA dimension 3.7 cm LA/Ao 1.0 LVAd ap4 36.6 cm\S\2 LVLd ap4 8.6 cm EDV(MOD-sp4) 130.0 ml LVAs ap4 19.8 cm\S\2 LVLs ap4 7.6 cm ESV(MOD-sp4) 45.0 ml EF(MOD-sp4) 65.4 % LVAd ap2 39.3 cm\S\2 LVLd ap2 8.7 cm EDV(MOD-sp2) 146.0 ml LVAs ap2 30.5 cm\S\2 LVLs ap2 8.2 cm ESV(MOD-sp2) 98.0 ml EF(MOD-sp2) 32.9 % CO(MOD-sp4) 5.7 l/min CI(MOD-sp4) 2.5 l/min/m\S\2 SV(MOD-sp4) 85.0 ml SI(MOD-sp4) 37.7 ml/m\S\2 CO(MOD-sp2) 3.2 l/min CI(MOD-sp2) 1.4 l/min/m\S\2 SV(MOD-sp2) 48.0 ml SI(MOD-sp2) 21.3 ml/m\S\2 Doppler Measurements and Calculations MV E max lul 87.4 cm/sec MV A max lul 41.5 cm/sec MV E/A 2.1 MV P1/2t max lul 110.8 cm/sec MV P1/2t 61.8 msec MVA(P1/2t) 3.6 cm\S\2 MV dec slope 525.3 cm/sec\S\2 MV dec time 0.20 sec Ao V2 max 165.9 cm/sec Ao max PG 11.0 mmHg Ao max PG (full) 7.5 mmHg LV V1 max PG 3.6 mmHg LV V1 max 94.3 cm/sec PA V2 max 101.0 cm/sec PA max PG 4.1 mmHg TR max lul 263.2 cm/sec
[2016-06-20] MEDS ORDERED: SODIUM CHLORIDE 0.9% 1000ML 1,000 ML IV SCH (10:15)
[2016-06-20 10:45] LABS: VEN BLD GAS O2 SATURATION 68.4 %; VEN BLOOD GAS BASE EXCESS 1.3 mmol/L
--- NOTE | 2016-06-20 11:25 | Progress Note ---
Subjective Date of Service: Jun 20, 2016. Subjective Pt evaluation today including: chart review, lab review Voiding: no voiding problems 75 year old pt admitted with altered mental status. Has 16 mm left renal stone present since 2012. Denies left flank pain. Case discussed with Dr. Wells, images reviewed, has had 16 mm left renal stone present since 2012. No hydro noted on CT. Suspect perinephric hematoma possibly secondary to fall Pt is afebrile and VSS- no sign of sepsis. No need for emergent urologic intervention Blood cultures and urine cultures are pending. She is receiving IV Vancomycin and Zosyn. White count is normal. Creatinine is coming down. Hgb 9.8 Hct 31.6 Problem List Medical Problems: (1) Anemia Status: Acute (2) Creatinine elevation Status: Acute Review of Systems Constitutional: No chills, No fever Eyes: No worsening of vision ENT: No hearing loss Respiratory: No cough, No dyspnea on exertion, No shortness of breath Cardiac: No chest pain Abdomen: + vomiting, No nausea Female : + dysuria Objective Vital Signs Date Time Temp Pulse Resp B/P Pulse Ox O2 Delivery O2 Flow Rate FiO2 06/20/16 08:48 36.6 72 16 134/73 98 Room Air 06/20/16 08:14 36.6 67 16 146/72 98 Room Air 06/20/16 04:14 36.3 77 19 135/63 100 Room Air 06/20/16 04:00 Room Air 06/20/16 00:13 36.5 77 19 117/75 94 Room Air 06/20/16 00:01 Room Air 06/19/16 20:00 96 Room Air 06/19/16 19:45 36.4 69 18 137/70 96 Room Air 06/19/16 17:46 36.6 80 20 134/84 95 Room Air 06/19/16 16:20 79 18 118/79 94 Room Air 06/19/16 14:22 96 22 141/84 99 Room Air 06/19/16 13:20 Room Air 06/19/16 13:17 93 06/19/16 13:10 36.6 81 20 148/86 96 Room Air Physical Exam General Appearance: WD/WN, no apparent distress Eyes: normal inspection ENT: hearing grossly normal Respiratory/Chest: no respiratory distress, no accessory muscle use Neurologic/Psychiatric: alert, normal mood/affect, + disoriented Skin: normal color Laboratory Results Current Inpatient Medications Medications (Trade) Dose Ordered Sig/Daquan Route Start Time Stop Time Status Last Admin Dose Admin Acetaminophen (Tylenol Tab) 650 mg Q4H PRN PO 06/19/16 16:00 07/19/16 15:59 Al Hydrox/Mg Hydrox/Simethicone (Maalox Max Susp) 15 ml Q4H PRN PO 06/19/16 16:00 07/19/16 15:59 Magnesium Hydroxide (Milk Of Magnesia Susp) 30 ml Q12H PRN PO 06/19/16 16:00 07/19/16 15:59 Ondansetron HCl (Zofran Inj) 4 mg Q6H PRN IV 06/19/16 16:00 07/19/16 15:59 Polyethylene (Miralax Powder Packet) 17 gm DAILY PRN PO 06/19/16 16:00 07/19/16 15:59 Carvedilol (Coreg Tab) 25 mg BID PO 06/19/16 21:00 07/19/16 20:59 06/20/16 08:19 25 MG Multivitamins (Multivitamin Tab) 1 tab DAILY PO 06/20/16 09:00 07/20/16 08:59 Ranitidine HCl (zANTac TAB) 150 mg DAILY PO 06/20/16 09:00 07/20/16 08:59 Lorazepam (Ativan Inj) 0.5 mg Q4H PRN IV 06/19/16 16:15 07/19/16 16:14 Lorazepam (Ativan Inj) 1 mg Q4HWA PRN IV 06/19/16 16:15 07/19/16 16:14 06/20/16 01:02 1 MG Albumin Human (Albumin 25%) 12.5 gm Q6 IV 06/19/16 18:00 06/20/16 12:01 06/20/16 06:06 12.5 GM Albumin Human 12.5 gm 12.5 gm Q6H IV 06/19/16 19:00 06/20/16 13:01 06/20/16 06:35 12.5 GM Piperacillin Sod/ Tazobactam Sod/ Dextrose (Zosyn Iv/D5 100ml) 115 ml @ 28.75 mls/ hr Q8@0200,1000,1800 IV 06/20/16 02:00 06/29/16 17:59 06/20/16 10:01 28.75 MLS/HR Vancomycin HCl (Consult) 1 ea UD PRN N/A 06/19/16 19:00 07/19/16 18:59 Piperacillin Sod/ Tazobactam Sod 1 ea 1 ea UD PRN N/A 06/19/16 19:00 07/19/16 18:59 Vancomycin HCl 1550 mg/Sodium Chloride 531 ml @ 200 mls/hr Q24H IV 06/20/16 09:00 06/30/16 08:59 06/20/16 09:28 200 MLS/HR Sodium Chloride (Nss 1000ml) 1,000 ml @ 100 mls/hr Q10H IV 06/20/16 10:15 06/20/16 20:14 06/20/16 10:52 100 MLS/HR Last 24 Hours Test 06/19/16 13:24 06/19/16 13:55 06/19/16 14:14 06/19/16 14:46 White Blood Count 11.86 K/uL Red Blood Count 3.91 M/uL Hemoglobin 10.5 g/dL Hematocrit 33.6 % Mean Corpuscular Volume 85.9 fL Mean Corpuscular Hemoglobin 26.9 pg Mean Corpuscular Hemoglobin Concent 31.3 g/dl Platelet Count 484 K/uL Mean Platelet Volume 9.5 fL Neutrophils (%) (Auto) 68.6 % Lymphocytes (%) (Auto) 19.7 % Monocytes (%) (Auto) 10.2 % Eosinophils (%) (Auto) 0.8 % Basophils (%) (Auto) 0.2 % Neutrophils # (Auto) 8.13 K/uL Lymphocytes # (Auto) 2.34 K/uL Monocytes # (Auto) 1.21 K/uL Eosinophils # (Auto) 0.10 K/uL Basophils # (Auto) 0.02 K/uL RDW Standard Deviation 50.0 fL RDW Coefficient of Variation 16.2 % Immature Granulocyte % (Auto) 0.5 % Immature Granulocyte # (Auto) 0.06 K/uL Sodium Level 142 mmol/L Potassium Level 4.3 mmol/L Chloride Level 105 mmol/L Carbon Dioxide Level 23 mmol/L Anion Gap 14.0 mmol/L Blood Urea Nitrogen 44 mg/dl Creatinine 2.20 mg/dl Est Creatinine Clear Calc Drug Dose 28.3 ml/min Estimated GFR () 24.3 Estimated GFR (Non- 20.9 BUN/Creatinine Ratio 19.8 Random Glucose 128 mg/dl Calcium Level 8.5 mg/dl Total Bilirubin 0.4 mg/dl Direct Bilirubin mg/dl Aspartate Amino Transf (AST/SGOT) 56 U/L Alanine Aminotransferase (ALT/SGPT) 83 U/L Alkaline Phosphatase 110 U/L Troponin I < 0.015 ng/ml Total Protein 6.2 gm/dl Albumin 1.7 gm/dl Thyroid Stimulating Hormone (TSH) 6.370 uIu/ml Free Thyroxine 1.07 ng/dl Chemistry Specimen Hemolysis Influenza Type A Antigen Neg for Influ A Influenza Type B Antigen Neg for Influ B Urine Color YELLOW Urine Appearance CLEAR Urine pH 5.0 Urine Specific [place] 1.012 Urine Protein NEG Urine Glucose (UA) NEG Urine Ketones NEG Urine Occult Blood NEG Urine Nitrite NEG Urine Bilirubin NEG Urine Urobilinogen NEG Urine Leukocyte Esterase SMALL Urine WBC (Auto) 10-30 /hpf Urine RBC (Auto) 0-4 /hpf Urine Hyaline Casts (Auto) 1-5 /lpf Urine Epithelial Cells (Auto) 20-30 /lpf Urine Bacteria (Auto) NEG Prothrombin Time 13.8 SECONDS Prothromb Time International Ratio 1.3 Activated Partial Thromboplast Time 28.3 SECONDS Partial Thromboplastin Ratio 1.1 Test 06/19/16 19:15 06/19/16 20:25 06/19/16 23:48 06/20/16 00:52 Hemoglobin 10.9 g/dL 10.4 g/dL Hematocrit 34.4 % 33.3 % Heparin Anti-Xa Act, Low Molec Wt 0.64 IU/ML Bedside Glucose 111 mg/dl Test 06/20/16 06:12 06/20/16 07:00 06/20/16 09:45 Bedside Glucose 134 mg/dl White Blood Count 8.47 K/uL Red Blood Count 3.58 M/uL Hemoglobin 9.8 g/dL Hematocrit 31.6 % Mean Corpuscular Volume 88.3 fL Mean Corpuscular Hemoglobin 27.4 pg Mean Corpuscular Hemoglobin Concent 31.0 g/dl RDW Standard Deviation 52.1 fL RDW Coefficient of Variation 16.1 % Platelet Count 379 K/uL Mean Platelet Volume 9.1 fL Erythrocyte Sedimentation Rate 29 mm/hr Sodium Level 144 mmol/L Potassium Level 3.8 mmol/L Chloride Level 107 mmol/L Carbon Dioxide Level 25 mmol/L Anion Gap 12.0 mmol/L Blood Urea Nitrogen 38 mg/dl Creatinine 2.00 mg/dl Est Creatinine Clear Calc Drug Dose 30.6 ml/min Estimated GFR () 27.2 Estimated GFR (Non- 23.5 BUN/Creatinine Ratio 19.0 Random Glucose 122 mg/dl Calcium Level 8.4 mg/dl Magnesium Level 2.0 mg/dl C-Reactive Protein 5.16 mg/dl Random Vancomycin Level 18.0 mcg/ml Assessment and Plan Left sided stone No acute or urgent urologic intervention needed at this time. Ok to feed pt. from urology standpoint. Stone has been present for at least 4 years. No [place], Denies pain. Recommend treating as outpt unless pt should become septic. Perinephric hematoma noted and suspected to be due to her fall. Continue to check hct. Continue antibiotics per primary service- Blood and urine cultures pending.
--- NOTE | 2016-06-20 11:31 | DIAGNOSTIC IMAGING REPORT ---
AP PELVIS AND BILATERAL HIPS 6 VIEWS CLINICAL HISTORY: Pain status post trauma COMPARISON STUDY: No previous studies for comparison. FINDINGS: The bones are osteopenic. There are postsurgical changes of a total right hip arthroplasty. There is no SI joint diastases. There is no symphysis diastases. No acute fractures or dislocations are visualized. There are degenerative changes present within the lower lumbar spine. IMPRESSION: No acute fractures or dislocations identified. Electronically signed by: Chadwick Morris M.D. 06/20/2016 11:30 AM Dictated Date/Time: 06/20/2016 11:27 AM
--- NOTE | 2016-06-20 11:32 | DIAGNOSTIC IMAGING REPORT ---
LUMBAR SPINE 2 OR 3 VIEWS CLINICAL HISTORY: eval for compression fracture trauma. Pain. COMPARISON STUDY: None. FINDINGS: Mild scoliosis. Moderate degenerative disc change throughout the entire lumbar region. Several paravertebral calcifications considered benign. Slight compression deformity superior endplate L3. No evidence for retropulsion of any component of the vertebral body. All remaining vertebral bodies are unremarkable in overall stature. IMPRESSION: Slight compression deformity superior endplate L3 of indeterminate age. This is approximately 10% of vertebral body height. Degenerative change throughout the remaining components of the lumbar region Electronically signed by: Georges Conway M.D. 06/20/2016 11:30 AM Dictated Date/Time: 06/20/2016 11:28 AM
--- NOTE | 2016-06-20 11:44 | DIAGNOSTIC IMAGING REPORT ---
THORACIC SPINE 3 VIEWS HISTORY: pain, recent fall COMPARISON: None. FINDINGS: There is no fracture. No subluxation. Mild degenerative disc disease throughout the thoracic spine. The heart is enlarged. Left basilar density/pleural effusion persists. Minimal anterior within the T11 vertebral body remains unchanged. This is likely within the range of normal limits. IMPRESSION: No fracture or subluxation within the thoracic spine. Electronically signed by: Markus Escamilla M.D. 06/20/2016 11:43 AM Dictated Date/Time: 06/20/2016 11:36 AM
--- NOTE | 2016-06-20 12:42 | Pharmacy Progress Note ---
Pharmacy Antibiotic Consult Date of Service: Jun 20, 2016. Pharmacy Dosing Scope Pharmacy is consulted to initiate Vancomycin IV dosing therapy, order appropriate labs and adjust drug dose/frequency. Subjective The patient is a 75 year old female admitted on Jun 19, 2016 at 16:06 for altered mental status. She was found to have an obstructing kidney stone and Dr. Choi consulted pharmacy for Vancomycin/Zosyn dosing for complicated UTI. Objective Height (Feet): 5 Height (Inches): 6.00 Weight (Kilograms): 116.800 Lab Results (24hrs): Laboratory Tests Test 06/19/16 13:24 06/20/16 07:00 BUN/Creatinine Ratio 19.8 19.0 Blood Urea Nitrogen 44 mg/dl 38 mg/dl Creatinine 2.20 mg/dl 2.00 mg/dl White Blood Count 11.86 K/uL 8.47 K/uL Red Blood Count 3.91 M/uL Hemoglobin 10.5 g/dL Hematocrit 33.6 % Mean Corpuscular Volume 85.9 fL Mean Corpuscular Hemoglobin 26.9 pg Mean Corpuscular Hemoglobin Concent 31.3 g/dl Platelet Count 484 K/uL Mean Platelet Volume 9.5 fL Neutrophils (%) (Auto) 68.6 % Lymphocytes (%) (Auto) 19.7 % Monocytes (%) (Auto) 10.2 % Eosinophils (%) (Auto) 0.8 % Basophils (%) (Auto) 0.2 % Neutrophils # (Auto) 8.13 K/uL Lymphocytes # (Auto) 2.34 K/uL Monocytes # (Auto) 1.21 K/uL Eosinophils # (Auto) 0.10 K/uL Basophils # (Auto) 0.02 K/uL Micro Results: Item Value Date Time Blood Culture Received 06/20/16 1045 Blood Pending Blood Culture Received 06/20/16 1030 Blood Pending MRSA DNA Surveillance Screen - Final Complete 06/19/16 1955 Nasal Specimen Negative for MRSA by DNA Probe Urine Culture Received 06/19/16 1414 Urine,Catheterized Pending Recent Pertinent Medications Item Value Date Time Piperacillin Sod/ 115 ml @ 28.75 mls/hr 06/20/16 0200 Tazobactam Sod Q8@0200,1000,1800/IV 06/20/16 1001 3.375 gm/Dextrose Assessment & Plan Loading dose: Vancomycin 2400mg (~20mg/kg) IV X 1 dose. Her renal function was very poor on admission and she was ordered a random level with morning labs. It resulted at 18 mcg/ml and her renal function improved a bit overnight. I estimated her half life to be around 23 hours. I will give her Vancomycin 1550mg (~13mg/kg) daily and check a trough level prior to 0900 dose on 06/22/16. Goal trough level estimate: between 15-20 mcg/mL. Pharmacy will continue to follow and will adjust dose/frequency as necessary. Thank you
--- NOTE | 2016-06-20 16:44 | Progress Note ---
Subjective Date of Service: Jun 20, 2016. Subjective Pt evaluation today including: conversation w/ patient, conversation w/ family (daughter, grand-daughter at bedside), physical exam, chart review, lab review, review of studies (CT abd/pelvis, MRI brain, etc), review of inpatient medication list Pain: vague at first, but localizes it to her back PO Intake: npo Voiding: incontinence telemetry stable overnight during my visit she was awake and alert but confused and had difficulty answering questions there was often a delay in giving answers, and answers were often very wrong ( place, day, date, month, year, etc) she could not tell me that she was in the [facility] recently, and could not tell me she was at [facility] just prior to coming here she recognizes her daughter and grand-daughter daughter reports she as living independently up until [place] and then "she went downhill" she became confused and ultimately landed in [facility] with UTI after that admission went to rehab at [facility] after that has chronic back pain, previously followed by Dr. Lara is s/p right hip replacement in the past s/p b/l knee replacements daughter confirms she has had recent falls over the last few weeks Problem List Medical Problems: (1) Anemia Status: Acute (2) Creatinine elevation Status: Acute Review of Systems Constitutional: No fever ENT: No nasal symptoms, No sore throat Respiratory: No cough, No dyspnea at rest, No sputum Cardiac: No chest pain, No orthopnea Abdomen: + pain, No diarrhea, No nausea, No vomiting Musculoskeletal: No joint pain, No muscle pain Female : + urinary frequency Neurologic: + weakness, No numbness/tingling Objective Vital Signs Date Time Temp Pulse Resp B/P Pulse Ox O2 Delivery O2 Flow Rate FiO2 06/20/16 12:00 36.7 77 16 141/65 94 Room Air 06/20/16 12:00 Room Air 06/20/16 08:48 36.6 72 16 134/73 98 Room Air 06/20/16 08:14 36.6 67 16 146/72 98 Room Air 06/20/16 08:00 Room Air 06/20/16 04:14 36.3 77 19 135/63 100 Room Air 06/20/16 04:00 Room Air 06/20/16 00:13 36.5 77 19 117/75 94 Room Air 06/20/16 00:01 Room Air 06/19/16 20:00 96 Room Air 06/19/16 19:45 36.4 69 18 137/70 96 Room Air 06/19/16 17:46 36.6 80 20 134/84 95 Room Air 06/19/16 16:20 79 18 118/79 94 Room Air Physical Exam General Appearance: no apparent distress, + obese, + pertinent finding ( confused) ENT: + pertinent finding (MM dry) Neck: no JVD Respiratory/Chest: lungs clear (scant fine rales bases only), no respiratory distress, no accessory muscle use Cardiovascular: no gallop, no murmur, + irregularly irregular Abdomen: normal bowel sounds, soft, no organomegaly, + tenderness (left flank tenderness with deep palpation ) Extremities: no pedal edema Neurologic/Psychiatric: no motor/sensory deficits, alert, + disoriented, + pertinent finding (no obvious tremor or asterixis ) Skin: + pertinent finding (ecchymoses (minimal) left flank; nearly resolved ecchymoses over left knee) Comments: musculo - patient with mild pain with passive flexion of both hips, worse on right. Back - tender to palpation along t-spine and l-spine. No pain along c- spine. b/l knees without pain with passive flexion/extension. Laboratory Results Last 24 Hours Test 06/19/16 19:15 06/19/16 20:25 06/19/16 23:48 06/20/16 00:52 Hemoglobin 10.9 g/dL 10.4 g/dL Hematocrit 34.4 % 33.3 % Heparin Anti-Xa Act, Low Molec Wt 0.64 IU/ML Bedside Glucose 111 mg/dl Test 06/20/16 06:12 06/20/16 07:00 06/20/16 10:30 06/20/16 12:29 Bedside Glucose 134 mg/dl 120 mg/dl White Blood Count 8.47 K/uL Red Blood Count 3.58 M/uL Hemoglobin 9.8 g/dL Hematocrit 31.6 % Mean Corpuscular Volume 88.3 fL Mean Corpuscular Hemoglobin 27.4 pg Mean Corpuscular Hemoglobin Concent 31.0 g/dl RDW Standard Deviation 52.1 fL RDW Coefficient of Variation 16.1 % Platelet Count 379 K/uL Mean Platelet Volume 9.1 fL Erythrocyte Sedimentation Rate 29 mm/hr Sodium Level 144 mmol/L Potassium Level 3.8 mmol/L Chloride Level 107 mmol/L Carbon Dioxide Level 25 mmol/L Anion Gap 12.0 mmol/L Blood Urea Nitrogen 38 mg/dl Creatinine 2.00 mg/dl Est Creatinine Clear Calc Drug Dose 30.6 ml/min Estimated GFR () 27.2 Estimated GFR (Non- 23.5 BUN/Creatinine Ratio 19.0 Random Glucose 122 mg/dl Calcium Level 8.4 mg/dl Magnesium Level 2.0 mg/dl C-Reactive Protein 5.16 mg/dl Random Vancomycin Level 18.0 mcg/ml Venous Blood pH 7.43 Venous Blood Partial Pressure CO2 40 mmHg Venous Blood Partial Pressure O2 37 mmHg Venous Blood HCO3 26 mmol/L Venous Blood Oxygen Saturation 68.4 % Venous Blood Base Excess 1.3 mmol/L Ammonia 24.0 umol/L Vitamin B12 Level 1166 pg/mL Test 06/20/16 16:17 Assessment and Plan 75yo female with: 1. concern of sepsis - initial source was felt to be the urinary tract as a result of her large left-sided kidney stone. Urology consult appreciated; at this time it is felt that the stone is not active/moving and thus not contributing to her symptomatology. If the urinary tract is not the source then other possibilities include joint ( infected hardware - right hip), lungs (has moderate pleural effusion on left but it does not have features suggestive of empyema), the retroperitoneal bleed (could there be early abscess/infection??), etc. ECHO w/o valvular vegetations. Sed rate has trended down considerably (was nearly 100 at the group home by report). Urine cx pending. Blood cx's ordered. Continue broad-spectrum IV abx for now. SHE DID receive antibiotics at the SNF prior to admission - could this have partially treated any UTI/other source?? Will send rapid PCR flu to be complete (flu screen was negative). 2. encephalopathy - presumed to be metabolic from infectious cause. Ongoing, but maybe slightly better per family. Check ammonia, b12, VBG (r/o hypercarbia) to be complete. Send blood cx's. Supportive care. Avoid benzos/sedatives/heavy narcotics. MRI Brain noted to be normal. No signs/symptoms of meningitis. 3. back pain in setting of recent falls - t-spine/l-spine x-rays, r/o compression Fx's. If negative could be due to retroperitoneal bleed. 4. acute blood loss anemia 2nd to retroperitoneal bleeding - repeat H/H this afternoon for stability. CBC in am. 5. a. fib on chronic anticoagulation - hold latter 2nd to #4. Rates controlled. 6. acute kidney injury in setting of CKD stage 3 - creatinine approaching baseline. BMP in am. 7. large left-sided renal stone - urology consult appreciated; no plans for urgent stent and/or other Rx. Follow carefully. 8. abnormal TSH with preserved Ft4 - would not Rx with synthroid at this time; repeat TFTs in 6 weeks as outpatient. 9. abnormal LFTs (ast/alt) - repeat in 1-2 days. No signs/symptoms of biliary tract disease. Could be from fatty liver. Is s/p cholecystectomy in the past. 10. DVT proph - SCDs; chemical means contraindicated. 11. chronic systolic CHF - compensated; if anything appears mildly volume contracted. 12. T2DM - novolog SSI for now; add lantus if needed. 13. h/o TIA - noted. Resume asa/eliquis when stable from heme standpoint. 14. protein calorie malnutrition - once eating again start boost supplementation. 15. h/o DVT/PE - noted. Will need to find out details about when this event occurred in the past. 16. b/l hip pain - pelvic/hip x-rays, r/o fracture, make sure hardware on right is intact. 17. elevated sed rate - improved. 18. morbid obesity with BMI 41 - noted. 19. FEN - if no urological procedure planned then start diet. NS hydration x 1 liter then saline lock. BMP am. daughter extensively updated today at bedside Continued [facility] stay due to: inadequate po fluid intake, ambulation difficulties , multiple IV medications needed Discharge planning: uncertain
[2016-06-20 17:19] LABS: HEMATOCRIT 31.2 % (37-47)
[2016-06-20] MEDS ORDERED: ACETAMINOPHEN IV 100 ML IV PRN (17:30)
[2016-06-20 19:11] LABS: INFLUENZA A PCR Neg for Influ A (NEG); INFLUENZA B PCR Neg for Influ B (NEG)
[2016-06-21] VITALS (8 sets, daily range): BP systolic 124–156; BP diastolic 56–109; PULSE 55–66; TEMP 35–36.5; O2SAT 95–98
[2016-06-21] MEDS: PIPERACILL/TAZOBAC IV 3.375 GM in DEXTROSE 5% 100ML 100 ML IV SCH ×3 (02:11→18:05)
[2016-06-21 07:05] LABS: BASO % 0.3 %; BASO ABS # 0.03 K/uL (0-0.2); COMPLETE YES; EOS % 1.5 %; HEMATOCRIT 31.9 % (37-47); IG% 0.6 %; LYMPH % 17.1 %; MEAN CELL VOLUME 89.4 fL (80-100); MEAN CORPUSCULAR HEMOGLOBIN 27.5 pg (25-34); MEAN CORPUSCULAR HGB CONC 30.7 g/dl (32-36); MEAN PLATELET VOLUME 9.2 fL (7.4-10.4); MONO % 8.4 %; NEUT % 72.1 %; PLATELET COUNT 343 K/uL (130-400); RED BLOOD COUNT 3.57 M/uL (4.2-5.4); WHITE BLOOD COUNT 9.96 K/uL (4.8-10.8)
[2016-06-21 07:43] LABS: BUN/CREATININE RATIO 17.9 (10-20); CALCIUM 8.5 mg/dl (8.5-10.1); CREATININE 1.9 mg/dl (0.60-1.20); POTASSIUM 3.7 mmol/L (3.5-5.1)
[2016-06-21] MEDS: VANCOMYCIN INJ 1,550 MG in SODIUM CHLORIDE 0.9% 500ML 500 ML IV SCH (07:51)
[2016-06-21] MEDS: MULTIVITAMIN TAB PO SCH (07:59)
[2016-06-21] MEDS: RANITIDINE HCL 150 MG TAB PO SCH (07:59)
[2016-06-21 08:42] LABS: ALT/SGPT 52 U/L (12-78); AST/SGOT 44 U/L (15-37)
[2016-06-21] MEDS: CARVEDILOL 25 MG TAB PO SCH ×2 (09:00→20:23)
--- NOTE | 2016-06-21 11:08 | Progress Note ---
Subjective Date of Service: Jun 21, 2016. Subjective Pt evaluation today including: conversation w/ patient, conversation w/ family , chart review, lab review Voiding: harmon catheter in place 75 year old female admitted with mental status change. Acute on Chronic renal failure. Daughter present during visit. Pt has regained some cognition but has not returned to baseline. Her urine culture is showing no growth but she has been on IV antibiotics and was at time of collection. Records received from [place] and reviewed showing a multidrug resistant EColi but not ESBL. Her creatinine was as high as 2.4. Creatinine today is 1.9 She has been afebrile and vital signs are stable with noted BP elevation at times. Hgb/Hct stable. Harmon intact note small amount of sediment. Problem List Medical Problems: (1) Anemia Status: Acute (2) Creatinine elevation Status: Acute Review of Systems Constitutional: No chills, No fever ENT: No hearing loss Respiratory: No dyspnea on exertion, No shortness of breath Cardiac: No chest pain Abdomen: + pain, No nausea, No vomiting Female : + see HPI Neurologic: + memory loss Heme: No abnormal bleeding/bruising Medications Last 24 Hours Test 06/20/16 12:29 06/20/16 16:15 06/20/16 17:00 06/20/16 17:12 Bedside Glucose 120 mg/dl 125 mg/dl Hemoglobin 9.7 g/dL Hematocrit 31.2 % Influenza Type A (RT-PCR) Neg for Influ A Influenza Type B (RT-PCR) Neg for Influ B Test 06/20/16 20:29 06/21/16 06:40 06/21/16 06:50 Bedside Glucose 109 mg/dl 105 mg/dl White Blood Count 9.96 K/uL Red Blood Count 3.57 M/uL Hemoglobin 9.8 g/dL Hematocrit 31.9 % Mean Corpuscular Volume 89.4 fL Mean Corpuscular Hemoglobin 27.5 pg Mean Corpuscular Hemoglobin Concent 30.7 g/dl Platelet Count 343 K/uL Mean Platelet Volume 9.2 fL Neutrophils (%) (Auto) 72.1 % Lymphocytes (%) (Auto) 17.1 % Monocytes (%) (Auto) 8.4 % Eosinophils (%) (Auto) 1.5 % Basophils (%) (Auto) 0.3 % Neutrophils # (Auto) 7.18 K/uL Lymphocytes # (Auto) 1.70 K/uL Monocytes # (Auto) 0.84 K/uL Eosinophils # (Auto) 0.15 K/uL Basophils # (Auto) 0.03 K/uL RDW Standard Deviation 52.2 fL RDW Coefficient of Variation 16.2 % Immature Granulocyte % (Auto) 0.6 % Immature Granulocyte # (Auto) 0.06 K/uL Sodium Level 144 mmol/L Potassium Level 3.7 mmol/L Chloride Level 110 mmol/L Carbon Dioxide Level 23 mmol/L Anion Gap 11.0 mmol/L Blood Urea Nitrogen 34 mg/dl Creatinine 1.90 mg/dl Est Creatinine Clear Calc Drug Dose 32.1 ml/min Estimated GFR () 29.0 Estimated GFR (Non- 25.0 BUN/Creatinine Ratio 17.9 Random Glucose 109 mg/dl Calcium Level 8.5 mg/dl Aspartate Amino Transf (AST/SGOT) 44 U/L Alanine Aminotransferase (ALT/SGPT) 52 U/L Current Inpatient Medications Medications (Trade) Dose Ordered Sig/Daquan Route Start Time Stop Time Status Last Admin Dose Admin Acetaminophen (Tylenol Tab) 650 mg Q4H PRN PO 06/19/16 16:00 07/19/16 15:59 Al Hydrox/Mg Hydrox/Simethicone (Maalox Max Susp) 15 ml Q4H PRN PO 06/19/16 16:00 07/19/16 15:59 Magnesium Hydroxide (Milk Of Magnesia Susp) 30 ml Q12H PRN PO 06/19/16 16:00 07/19/16 15:59 Ondansetron HCl (Zofran Inj) 4 mg Q6H PRN IV 06/19/16 16:00 07/19/16 15:59 Polyethylene (Miralax Powder Packet) 17 gm DAILY PRN PO 06/19/16 16:00 07/19/16 15:59 Carvedilol (Coreg Tab) 25 mg BID PO 06/19/16 21:00 07/19/16 20:59 06/20/16 08:19 25 MG Multivitamins (Multivitamin Tab) 1 tab DAILY PO 06/20/16 09:00 07/20/16 08:59 06/21/16 07:59 1 TAB Ranitidine HCl (zANTac TAB) 150 mg DAILY PO 06/20/16 09:00 07/20/16 08:59 06/21/16 07:59 150 MG Lorazepam (Ativan Inj) 0.5 mg Q4H PRN IV 06/19/16 16:15 07/19/16 16:14 06/20/16 13:46 0.5 MG Lorazepam 1 mg 1 mg Q4HWA PRN IV 06/19/16 16:15 07/19/16 16:14 06/20/16 01:02 1 MG Piperacillin Sod/ Tazobactam Sod/ Dextrose (Zosyn Iv/D5 100ml) 115 ml @ 28.75 mls/ hr Q8@0200,1000,1800 IV 06/20/16 02:00 06/29/16 17:59 06/21/16 10:29 28.75 MLS/HR Vancomycin HCl (Consult) 1 ea UD PRN N/A 06/19/16 19:00 07/19/16 18:59 Piperacillin Sod/ Tazobactam Sod 1 ea 1 ea UD PRN N/A 06/19/16 19:00 07/19/16 18:59 Vancomycin HCl 1550 mg/Sodium Chloride 531 ml @ 200 mls/hr Q24H IV 06/20/16 09:00 06/30/16 08:59 06/21/16 07:51 200 MLS/HR Acetaminophen (Ofirmev Iv) 100 ml @ 400 mls/hr Q8H PRN IV 06/20/16 17:30 07/20/16 17:29 06/20/16 18:03 400 MLS/HR Thiamine HCl (Vitamin B-1 Tab) 200 mg BID PO 06/21/16 11:00 07/21/16 10:59 UNV Objective Vital Signs Date Time Temp Pulse Resp B/P Pulse Ox O2 Delivery O2 Flow Rate FiO2 06/21/16 09:52 Room Air 06/21/16 08:00 Room Air 06/21/16 07:34 35.0 62 12 156/99 98 Room Air 06/21/16 04:19 36.5 63 18 135/56 95 Room Air 06/21/16 04:00 Room Air 06/21/16 00:01 95 Room Air 06/20/16 23:39 36.5 79 18 157/71 95 Room Air 06/20/16 20:00 96 Room Air 06/20/16 19:11 36.4 61 20 132/57 96 Room Air 06/20/16 16:17 36.3 66 20 118/88 96 Room Air 06/20/16 16:00 Room Air 06/20/16 12:00 36.7 77 16 141/65 94 Room Air 06/20/16 12:00 Room Air Physical Exam General Appearance: WD/WN, no apparent distress Respiratory/Chest: no respiratory distress, no accessory muscle use Neurologic/Psychiatric: alert Skin: normal color Comments: Bilateral flank pain with palpation. Laboratory Results Last 24 Hours Test 06/20/16 12:29 06/20/16 16:15 06/20/16 17:00 06/20/16 17:12 Bedside Glucose 120 mg/dl 125 mg/dl Hemoglobin 9.7 g/dL Hematocrit 31.2 % Influenza Type A (RT-PCR) Neg for Influ A Influenza Type B (RT-PCR) Neg for Influ B Test 06/20/16 20:29 06/21/16 06:40 06/21/16 06:50 Bedside Glucose 109 mg/dl 105 mg/dl White Blood Count 9.96 K/uL Red Blood Count 3.57 M/uL Hemoglobin 9.8 g/dL Hematocrit 31.9 % Mean Corpuscular Volume 89.4 fL Mean Corpuscular Hemoglobin 27.5 pg Mean Corpuscular Hemoglobin Concent 30.7 g/dl Platelet Count 343 K/uL Mean Platelet Volume 9.2 fL Neutrophils (%) (Auto) 72.1 % Lymphocytes (%) (Auto) 17.1 % Monocytes (%) (Auto) 8.4 % Eosinophils (%) (Auto) 1.5 % Basophils (%) (Auto) 0.3 % Neutrophils # (Auto) 7.18 K/uL Lymphocytes # (Auto) 1.70 K/uL Monocytes # (Auto) 0.84 K/uL Eosinophils # (Auto) 0.15 K/uL Basophils # (Auto) 0.03 K/uL RDW Standard Deviation 52.2 fL RDW Coefficient of Variation 16.2 % Immature Granulocyte % (Auto) 0.6 % Immature Granulocyte # (Auto) 0.06 K/uL Sodium Level 144 mmol/L Potassium Level 3.7 mmol/L Chloride Level 110 mmol/L Carbon Dioxide Level 23 mmol/L Anion Gap 11.0 mmol/L Blood Urea Nitrogen 34 mg/dl Creatinine 1.90 mg/dl Est Creatinine Clear Calc Drug Dose 32.1 ml/min Estimated GFR () 29.0 Estimated GFR (Non- 25.0 BUN/Creatinine Ratio 17.9 Random Glucose 109 mg/dl Calcium Level 8.5 mg/dl Aspartate Amino Transf (AST/SGOT) 44 U/L Alanine Aminotransferase (ALT/SGPT) 52 U/L Assessment and Plan Left sided stone No acute or urgent urologic intervention needed at this time. Ok to feed pt. from urology standpoint. Stone has been present for at least 4 years. No [place], Denies pain. Recommend treating as outpt unless pt should become septic. Perinephric hematoma noted and suspected to be due to her fall. Hgb/hct stable. Continue antibiotics per primary service- Urine culture- prelim negative She has been afebrile and vitals sign unremarkable - stone is not likely source of her change of mental status or urine infection. Continued [facility] stay due to: inadequate po fluid intake, ambulation difficulties , multiple IV medications needed Discharge planning: uncertain
--- NOTE | 2016-06-21 11:35 | Progress Note ---
Progress Note ID Consult Dictated #[id number] A/P: 1.Uti - yeast -will start caspo pending additional ID -can continue abx for now, if blood cultures negative and she remains afebrile, can stop -will follow, thank you
--- NOTE | 2016-06-21 12:08 | INFECT. DISEASE CONSULTATION ---
DATE OF CONSULTATION: 06/21/2016 REQUESTING PHYSICIAN: Dr. Bray. CONSULTATION FOLLOWS: This is a 75-year-old female who was admitted from [facility] with change in mental status. On my examination, she is out of bed to chair and appears comfortable, but is unable to provide any history. A history is obtained from the H\T\P which appears to be obtained from the patient's daughter. Per the H\T\P she was recently seen at [facility] and sent to [facility], where she was diagnosed with a multidrug resistant E. coli. She was initially treated with Zosyn and then transitioned to ceftriaxone to complete a 7-day course. This was in April. Per family, she did not have an appreciable change in her mental status after treatment of a urinary tract infection. Because she has had continued mental status change, recent laboratory studies were drawn as an outpatient. She was found to have an elevated creatinine and her baseline is usually between 1.7 and 1.9. Her sed rate was also elevated at 102, with a repeat of 99. She was subsequently admitted here for further evaluation. She does have a history of multiple falls. She did have a CT and MRI of the brain which did not show any acute abnormality. She was found to have elevated creatinine of 1.9. She did have continued elevated inflammatory markers; however, her sed rate was much improved to 29 from the previous 102 as an outpatient. Her white blood cell count has been within normal limits. Her CRP is elevated at 5. A urinalysis was obtained and had 10-30 WBCs. Culture from the 30th was initially no growth, but as of this morning is now growing yeast, which has not yet been identified. She does have chronic Kaur catheter in place. She was placed on vancomycin and Zosyn empirically pending additional laboratory studies. She did have a CAT scan of the abdomen and pelvis which showed left flank retroperitoneal hematoma measuring 10 x 10 x 4 cm. She was not found to have any evidence of pyelonephritis on CAT scan, but does have a stone. She was evaluated by Urology during this admission and there is no plan for immediate intervention per their recommendations. On my examination, she denies any pain. She denies any shortness of breath or chest pain. She denies any fevers or chills. Again, remaining review of systems is limited, but negative. PAST MEDICAL HISTORY: Significant for afib, cardiomyopathy, chronic kidney disease, type 2 diabetes, history of DVT, high cholesterol, lymphedema, obesity, history of PE, and TIA. SURGICAL HISTORY: Significant for cardiac catheterization, hip replacements and total knee replacements bilaterally. FAMILY HISTORY: Noncontributory. SOCIAL HISTORY: Negative for tobacco use, alcohol use or drug use. She currently is a resident at [facility]. ALLERGIES: INCLUDE MORPHINE, ADHESIVE TAPE AND DIGOXIN. CURRENT MEDICATIONS: Include acetaminophen, multivitamins, Zantac, vancomycin, Zosyn, Coreg, Ativan, Tylenol, Milk of Magnesia, Maalox, Zofran and MiraLax. PHYSICAL EXAMINATION: VITAL SIGNS: She has been afebrile since admission to the hospital, pulse 62, respiratory rate 16, blood pressure 149/91, oxygen saturation is 97% on room air. GENERAL: She is awake and oriented; however, she is not able to answer questions regarding her history. HEENT: Mucous membranes are dry. HEART: Without murmur. LUNGS: Clear bilaterally with poor inspiratory effort. ABDOMEN: Soft, nontender, nondistended. She does have lymphedema with no lower extremity edema. SKIN: Without rash. Kaur catheter is in place. LABORATORY STUDIES: CBC today reveals a white blood cell count of 9.9, hemoglobin 9.8, hematocrit 31.9, platelets are 343. Sed rate in the Emergency Room was 29. Chemistry panel reveals a sodium of 144, potassium 3.7, chloride 110, bicarbonate 23, BUN 34, creatinine 0.9, glucose is 105. AST is mildly elevated at 44, ALT is normal at 52. Creatinine has improved from 2.2 on admission. TSH is elevated at 6.3. CRP is elevated at 5.1. Ammonia level was 24. Urinalysis had 10-30 WBCs with no bacteria. A random vancomycin level yesterday was 18. Flu swab and PCR are both negative. A urine culture again of 40,000 colonies of yeast and MRSA swab was negative. Blood cultures from the are pending. CT and MRI of the brain are as previously noted. Again, abdominal CT showed a 10 x 10 x 4 cm retroperitoneal collection. There is also a 16 mm obstructing stone on the left side. No bowel obstruction was identified. X-ray of the hip, lumbar spine and thoracic spine were done in the Emergency Room and do not show any acute fracture. ASSESSMENT AND PLAN: 1. Likely a fungal urinary tract infection. 2. Elevated inflammatory markers which likely are multifactorial. She can be continued on broad spectrum antibiotics pending the results of her blood cultures. If they are negative, those can be discontinued. She will be started on caspofungin for treatment of the yeast in the urine pending further identification. Her inflammatory markers could be elevated secondary to fungal urinary tract infection or retroperitoneal hematoma. However, it appears that her sed rate has improved significantly from outpatient values to her most recent sed rate here in the hospital of 29. We will follow along with you. Thank you for this consultation. DESTIN
[2016-06-21] MEDS ORDERED: CASPOFUNGIN INJ 70 MG in SODIUM CHLORIDE 0.9% 250ML 250 ML IV ONE ×2 (12:30→14:00)
[2016-06-21] MEDS: THIAMINE HCL 100 MG TAB PO SCH ×2 (14:26→20:23)
[2016-06-21] MEDS: LORAZEPAM 2 MG/ML 1 ML VIAL IV PRN (19:50)
--- NOTE | 2016-06-21 20:42 | Progress Note ---
Subjective Date of Service: Jun 21, 2016. Subjective Pt evaluation today including: conversation w/ patient, conversation w/ family (daughter at bedside), physical exam, chart review, lab review, review of studies (records from [facility]), conversation w/ medical consultant (ID, urology), review of inpatient medication list Pain: back - flanks b/l, worse on left PO Intake: very poor Voiding: harmon catheter in place tele overnight with bradycardia but no AV block this AM she could not tell me the correct day, date, year, or location could not tell me why she was in the hospital denied headache, sore throat, neck pain, chest pain, sob, cough, abd pain, nausea, emesis again c/o back pain - not midline but over flanks, worse on left denied pelvic/hip pain denied myalgias Problem List Medical Problems: (1) Anemia Status: Acute (2) Creatinine elevation Status: Acute Review of Systems Constitutional: No chills, No fever Respiratory: No cough, No sputum Cardiac: No chest pain, No orthopnea Abdomen: No nausea, No pain Endo: + fatigue Objective Vital Signs Date Time Temp Pulse Resp B/P Pulse Ox O2 Delivery O2 Flow Rate FiO2 06/21/16 18:48 36.3 55 18 147/109 95 Room Air 06/21/16 16:00 Room Air 06/21/16 15:32 59 97 06/21/16 15:03 36.3 61 20 148/66 97 Room Air 06/21/16 12:00 Room Air 06/21/16 11:07 36.5 62 16 149/91 97 Room Air 06/21/16 09:52 Room Air 06/21/16 08:00 Room Air 06/21/16 07:34 35.0 62 12 156/99 98 Room Air 06/21/16 04:19 36.5 63 18 135/56 95 Room Air 06/21/16 04:00 Room Air 06/21/16 00:01 95 Room Air 06/20/16 23:39 36.5 79 18 157/71 95 Room Air Physical Exam General Appearance: no apparent distress, + obese ENT: pharynx normal Neck: no JVD Respiratory/Chest: lungs clear, no respiratory distress, no accessory muscle use, + decreased breath sounds (left base only) Cardiovascular: no gallop, no murmur, + irregularly irregular Abdomen: normal bowel sounds, non tender, soft, no organomegaly Extremities: no pedal edema Neurologic/Psychiatric: no motor/sensory deficits, alert, + disoriented Skin: no rash, + pertinent finding (minimal ecchymoses over b/l flanks; nearly resolved ecchymoses over left knee) Lymphatic: no adenopathy (cervical or axillary ) Comments: back - NO tenderness to palpation over the t-spine or l-spine w/ palpation passive ROM of either hip causes no consistent pain/tenderness (only occasional , intermittent pain) when she actively flexes the hip on the right this causes no pain Laboratory Results Last 24 Hours Test 06/21/16 06:40 06/21/16 06:50 06/21/16 10:58 06/21/16 16:17 White Blood Count 9.96 K/uL Red Blood Count 3.57 M/uL Hemoglobin 9.8 g/dL Hematocrit 31.9 % Mean Corpuscular Volume 89.4 fL Mean Corpuscular Hemoglobin 27.5 pg Mean Corpuscular Hemoglobin Concent 30.7 g/dl Platelet Count 343 K/uL Mean Platelet Volume 9.2 fL Neutrophils (%) (Auto) 72.1 % Lymphocytes (%) (Auto) 17.1 % Monocytes (%) (Auto) 8.4 % Eosinophils (%) (Auto) 1.5 % Basophils (%) (Auto) 0.3 % Neutrophils # (Auto) 7.18 K/uL Lymphocytes # (Auto) 1.70 K/uL Monocytes # (Auto) 0.84 K/uL Eosinophils # (Auto) 0.15 K/uL Basophils # (Auto) 0.03 K/uL RDW Standard Deviation 52.2 fL RDW Coefficient of Variation 16.2 % Immature Granulocyte % (Auto) 0.6 % Immature Granulocyte # (Auto) 0.06 K/uL Sodium Level 144 mmol/L Potassium Level 3.7 mmol/L Chloride Level 110 mmol/L Carbon Dioxide Level 23 mmol/L Anion Gap 11.0 mmol/L Blood Urea Nitrogen 34 mg/dl Creatinine 1.90 mg/dl Est Creatinine Clear Calc Drug Dose 32.1 ml/min Estimated GFR () 29.0 Estimated GFR (Non- 25.0 BUN/Creatinine Ratio 17.9 Random Glucose 109 mg/dl Calcium Level 8.5 mg/dl Aspartate Amino Transf (AST/SGOT) 44 U/L Alanine Aminotransferase (ALT/SGPT) 52 U/L Bedside Glucose 105 mg/dl 111 mg/dl 111 mg/dl Test 06/21/16 20:11 Bedside Glucose 112 mg/dl Assessment and Plan 75yo female with: 1. concern of sepsis - initial source was felt to be the urinary tract as a result of her large left-sided kidney stone. Urology consult appreciated; at this time it is felt that the stone is not active/moving and thus not contributing to her symptomatology. If the urinary tract is not the source then other possibilities include joint ( infected hardware - right hip), lungs (has moderate pleural effusion on left but it does not have features suggestive of empyema), the retroperitoneal bleed (could there be early abscess/infection??), etc. ECHO w/o valvular vegetations. Flu PCR negative. Sed rate has trended down considerably (was nearly 100 at the [facility] by report). Now it is <30. Urine cx was initially negative, now growing yeast (non-albicans). Blood cx's negative. Continue broad-spectrum IV abx for now. ID consult obtained; recs appreciated. They have recommended anti-fungals for the fungal UTI. I am unclear how she developed such - due to recent catheterization? due to recent hospitalization/institutionalization? Is the stone acting as a nidus for ongoing infection? 2. encephalopathy - presumed to be metabolic from infectious cause. Ongoing; not significantly better today. Ammonia, b12, VBG, MRI brain - all negative/normal. B1 level sent; thiamine started. Avoid benzos/sedatives/heavy narcotics. No signs/symptoms of meningitis. 3. back pain in setting of recent falls - t-spine/l-spine x-rays with old Lumbar compression Fx only. No signs/symptoms of diskitis on exam. Back pain could be due to retroperitoneal bleed. 4. acute blood loss anemia 2nd to retroperitoneal bleeding - serial CBCs stable. 5. a. fib on chronic anticoagulation - holding latter 2nd to #4. Rates controlled. 6. acute kidney injury in setting of CKD stage 3 - creatinine improved with fluids & supportive care. 7. large left-sided renal stone - urology consult appreciated; no plans for urgent stent. however, with new fungal UTI, should there be intervention? Defer to urology. They will continue to follow. 8. abnormal TSH with preserved Ft4 - would not Rx with synthroid at this time; repeat TFTs in 6 weeks as outpatient. 9. abnormal LFTs (ast/alt) - nearly normal today. No signs/symptoms of biliary tract disease. Could be from fatty liver. Is s/p cholecystectomy in the past. 10. DVT proph - SCDs; chemical means contraindicated. 11. chronic systolic CHF - compensated. 12. T2DM - adequate control; novolog SSI for now; add lantus if needed. 13. h/o TIA - noted. Resume asa/eliquis when stable from heme standpoint. 14. protein calorie malnutrition - once eating again start boost supplementation. 15. 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 16. b/l hip pain - pelvic/hip x-rays w/o fracture; right THR hardware intact. No signs/symptoms of septic joint. 17. elevated sed rate - improved. 18. morbid obesity with BMI 41 - noted. 19. FEN - diet as tolerated, BMP in am. daughter extensively updated again today PT, OT consultations may need PICC line due to poor access Continued [facility] stay due to: inadequate po fluid intake, voiding difficulties, ambulation difficulties, multiple IV medications needed Discharge planning: uncertain
[2016-06-22] MEDS: PIPERACILL/TAZOBAC IV 3.375 GM in DEXTROSE 5% 100ML 100 ML IV SCH (02:33)
[2016-06-22 04:24] VITALS: BP 143/56; PULSE 63; TEMP 36.8; O2SAT 96
[2016-06-22 08:23] VITALS: BP 158/71; PULSE 75; TEMP 36.8; O2SAT 96
[2016-06-22] MEDS ORDERED: VANCOMYCIN TROUGH SCH (08:30)
[2016-06-22] MEDS: MULTIVITAMIN TAB PO SCH (08:32)
[2016-06-22] MEDS: THIAMINE HCL 100 MG TAB PO SCH ×2 (08:32→20:28)
[2016-06-22] MEDS: RANITIDINE HCL 150 MG TAB PO SCH (08:32)
[2016-06-22] MEDS: CARVEDILOL 25 MG TAB PO SCH ×2 (08:33→20:28)
[2016-06-22 08:54] LABS: HEMATOCRIT 34.5 % (37-47); MEAN CELL VOLUME 88.7 fL (80-100); MEAN CORPUSCULAR HEMOGLOBIN 27.2 pg (25-34); MEAN CORPUSCULAR HGB CONC 30.7 g/dl (32-36); PLATELET COUNT 322 K/uL (130-400); RED BLOOD COUNT 3.89 M/uL (4.2-5.4); WHITE BLOOD COUNT 10.38 K/uL (4.8-10.8)
[2016-06-22 09:29] LABS: BUN/CREATININE RATIO 16.4 (10-20); CALCIUM 8.4 mg/dl (8.5-10.1); CREATININE 1.8 mg/dl (0.60-1.20); POTASSIUM 3.5 mmol/L (3.5-5.1)
[2016-06-22 11:41] VITALS: BP 142/63; PULSE 77; TEMP 36.8; O2SAT 96
[2016-06-22] MEDS ORDERED: CASPOFUNGIN INJ 50 MG in SODIUM CHLORIDE 0.9% 250ML 250 ML IV SCH (12:00)
[2016-06-22] MEDS ORDERED: NURSING DECISION MEDICATION ORDER SCH (14:00)
[2016-06-22] MEDS: CASPOFUNGIN INJ 50 MG in SODIUM CHLORIDE 0.9% 250ML 250 ML IV SCH (14:09)
[2016-06-22] MEDS ORDERED: MICONAZOLE NITRATE POWDER 43 GM EXT PRN (14:15)
--- NOTE | 2016-06-22 14:29 | Progress Note ---
Subjective Date of Service: Jun 22, 2016. Subjective Remains afebrile. blood cultures negative x 2. Abx stopped, remains on caspo, tolerating well. wbc nml. urine culture with non-albicans yeast. creat improved to 1.8. Problem List Medical Problems: (1) Anemia Status: Acute (2) Creatinine elevation Status: Acute Objective Vital Signs Date Time Temp Pulse Resp B/P Pulse Ox O2 Delivery O2 Flow Rate FiO2 06/22/16 12:00 Room Air 06/22/16 11:41 36.8 77 18 142/63 96 06/22/16 08:23 36.8 75 18 158/71 96 06/22/16 08:00 Room Air 06/22/16 04:24 36.8 63 18 143/56 96 Room Air 06/22/16 04:00 Room Air 06/21/16 23:59 Room Air 06/21/16 23:16 36.4 66 18 124/61 95 Room Air 06/21/16 20:00 Room Air 06/21/16 18:48 36.3 55 18 147/109 95 Room Air 06/21/16 16:00 Room Air 06/21/16 15:32 59 97 06/21/16 15:03 36.3 61 20 148/66 97 Room Air Laboratory Results Item Value Date Time Urine Culture - Preliminary Resulted 06/19/16 1414 Urine,Catheterized Yeast Not Jane Albicans Blood Culture - Preliminary Resulted 06/20/16 1030 Blood NO GROWTH TO DATE. Blood Culture - Preliminary Resulted 06/20/16 1045 Blood NO GROWTH TO DATE. Last 24 Hours Test 06/21/16 16:17 06/21/16 20:11 06/22/16 06:51 06/22/16 08:46 Bedside Glucose 111 mg/dl 112 mg/dl 85 mg/dl White Blood Count 10.38 K/uL Red Blood Count 3.89 M/uL Hemoglobin 10.6 g/dL Hematocrit 34.5 % Mean Corpuscular Volume 88.7 fL Mean Corpuscular Hemoglobin 27.2 pg Mean Corpuscular Hemoglobin Concent 30.7 g/dl RDW Standard Deviation 52.3 fL RDW Coefficient of Variation 16.7 % Platelet Count 322 K/uL Mean Platelet Volume 9.0 fL Nucleated RBC Absolute Count (auto) 0.02 K/uL Nucleated Red Blood Cells % 0.2 % Sodium Level 145 mmol/L Potassium Level 3.5 mmol/L Chloride Level 109 mmol/L Carbon Dioxide Level 24 mmol/L Anion Gap 12.0 mmol/L Blood Urea Nitrogen 30 mg/dl Creatinine 1.80 mg/dl Est Creatinine Clear Calc Drug Dose 34.1 ml/min Estimated GFR () 30.9 Estimated GFR (Non- 26.7 BUN/Creatinine Ratio 16.4 Random Glucose 107 mg/dl Calcium Level 8.4 mg/dl Test 06/22/16 11:14 Bedside Glucose 150 mg/dl Assessment and Plan (1) Catheter-associated urinary tract infection Assessment & Plan: continue caspo, 7 days total. remove harmon if able. No plans currently for stone removal, if plans to remove stone would give caspo pre procedure. Continued [facility] stay due to: inadequate po fluid intake, voiding difficulties, ambulation difficulties, multiple IV medications needed Discharge planning: uncertain
[2016-06-22 15:20] VITALS: BP 156/69; PULSE 66; TEMP 36.4; O2SAT 98
--- NOTE | 2016-06-22 17:13 | Progress Note ---
Subjective Date of Service: Jun 22, 2016. Subjective Pt evaluation today including: conversation w/ patient, physical exam, chart review, lab review, conversation w/ behavioral health consultant (urology - Dr. Alexander (on-call urologist today)) Pain: denies back pain or abd pain today PO Intake: improved per staff Voiding: harmon catheter in place tele stable overnight - a.fib; no pauses during my visit she was sitting in the chair by the bed she was playing with a lid and a straw to her cup she knew she was at [facility], but kept asking for "Maida" and that "she needed to go home" she could not tell me why she was hospitalized ate better at lunch per staff Problem List Medical Problems: (1) Anemia Status: Acute (2) Creatinine elevation Status: Acute Review of Systems Constitutional: No fever Respiratory: No dyspnea on exertion, No shortness of breath Cardiac: No chest pain Abdomen: No nausea, No pain, No vomiting Objective Vital Signs Date Time Temp Pulse Resp B/P Pulse Ox O2 Delivery O2 Flow Rate FiO2 06/22/16 15:20 36.4 66 16 156/69 98 Room Air 06/22/16 12:00 Room Air 06/22/16 11:41 36.8 77 18 142/63 96 06/22/16 08:23 36.8 75 18 158/71 96 06/22/16 08:00 Room Air 06/22/16 04:24 36.8 63 18 143/56 96 Room Air 06/22/16 04:00 Room Air 06/21/16 23:59 Room Air 06/21/16 23:16 36.4 66 18 124/61 95 Room Air 06/21/16 20:00 Room Air 06/21/16 18:48 36.3 55 18 147/109 95 Room Air Physical Exam General Appearance: no apparent distress, + obese ENT: pharynx normal Neck: no JVD Respiratory/Chest: lungs clear, no respiratory distress, no accessory muscle use, + decreased breath sounds (left base) Cardiovascular: no gallop, no murmur, + irregularly irregular Abdomen: normal bowel sounds, non tender, soft, no organomegaly, + pertinent finding (no flank tenderness to palpation ) Extremities: no pedal edema Neurologic/Psychiatric: alert, + disoriented (a/o x 2), + pertinent finding ( confused) Skin: + pertinent finding (resolved ecchymoses of left knee and left flank) Lymphatic: no adenopathy (cervical) Laboratory Results Last 24 Hours Test 06/21/16 20:11 06/22/16 06:51 06/22/16 08:46 06/22/16 11:14 Bedside Glucose 112 mg/dl 85 mg/dl 150 mg/dl White Blood Count 10.38 K/uL Red Blood Count 3.89 M/uL Hemoglobin 10.6 g/dL Hematocrit 34.5 % Mean Corpuscular Volume 88.7 fL Mean Corpuscular Hemoglobin 27.2 pg Mean Corpuscular Hemoglobin Concent 30.7 g/dl RDW Standard Deviation 52.3 fL RDW Coefficient of Variation 16.7 % Platelet Count 322 K/uL Mean Platelet Volume 9.0 fL Nucleated RBC Absolute Count (auto) 0.02 K/uL Nucleated Red Blood Cells % 0.2 % Sodium Level 145 mmol/L Potassium Level 3.5 mmol/L Chloride Level 109 mmol/L Carbon Dioxide Level 24 mmol/L Anion Gap 12.0 mmol/L Blood Urea Nitrogen 30 mg/dl Creatinine 1.80 mg/dl Est Creatinine Clear Calc Drug Dose 34.1 ml/min Estimated GFR () 30.9 Estimated GFR (Non- 26.7 BUN/Creatinine Ratio 16.4 Random Glucose 107 mg/dl Calcium Level 8.4 mg/dl Test 06/22/16 16:45 Bedside Glucose 138 mg/dl Assessment and Plan 75yo female with: 1. probable sepsis - likely source is the urinary tract. Has fungal UTI. Mentation slightly better although she is still confused; appetite IS better. Urology consult appreciated. Although she has a very large kidney stone on the left it has been felt that the stone is not active/moving and thus not contributing to her symptomatology. She has had no hydronephrosis on imaging. If the urinary tract is not the source then other possibilities include joint ( infected hardware - right hip), lungs (has moderate pleural effusion on left but it does not have features suggestive of empyema), the retroperitoneal bleed (could there be early abscess/infection??), etc. ECHO w/o valvular vegetations. Flu PCR negative. Sed rate has trended down considerably (was nearly 100 at the shelter by report). Now it is <30. Blood cx's negative. Will d/c zosyn/vanco. 2. fungal UTI - day #2 caspofungin. Blood cx's negative for such. 3. encephalopathy - presumed to be metabolic from infectious cause. Ongoing; maybe slightly better today. But still very confused. Ammonia, b12, VBG, MRI brain - all negative/normal. B1 level sent; thiamine started. Avoid excessive benzos/sedatives/heavy narcotics. No signs/symptoms of meningitis. 4. back pain in setting of recent falls - t-spine/l-spine x-rays with old Lumbar compression Fx only. No signs/symptoms of diskitis on exam. Back pain could be due to retroperitoneal bleed. Overall improved. 5. acute blood loss anemia 2nd to retroperitoneal bleeding - serial CBCs stable. No signs of ongoing bleeding. 6. a. fib on chronic anticoagulation - holding latter 2nd to #5. Rates controlled. 7. acute kidney injury in setting of CKD stage 3 - creatinine continues to improve with supportive care. 8. large left-sided renal stone - urology consult appreciated. I spoke with Dr. Alexander today re: her case. He and his team continue to follow. 9. abnormal TSH with preserved Ft4 - would not Rx with synthroid at this time; repeat TFTs in 6 weeks as outpatient. 10. abnormal LFTs (ast/alt) - improved this hospitalization. No signs/ symptoms of biliary tract disease. Could be from fatty liver. Is s/p cholecystectomy in the past. 11. DVT proph - SCDs; chemical means contraindicated. 12. chronic systolic CHF - compensated. 13. T2DM - adequate control; novolog SSI for now. 14. h/o TIA - noted. Resume asa/eliquis when stable from heme standpoint. 15. protein calorie malnutrition - add boost glucose control. 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 17. b/l hip pain - pelvic/hip x-rays w/o fracture; right THR hardware intact. No signs/symptoms of septic joint. 18. morbid obesity with BMI 41 - noted. 19. FEN - diet as tolerated, BMP in am. daughter extensively updated again today PT, OT consultations will consent daughter for PICC Continued [facility] stay due to: inadequate po fluid intake, voiding difficulties, ambulation difficulties, multiple IV medications needed, other (encephalopathy) Discharge planning: uncertain
--- NOTE | 2016-06-22 19:14 | Progress Note ---
Subjective Date of Service: Jun 22, 2016. Subjective Pt evaluation today including: conversation w/ patient, physical exam, chart review, lab review, review of studies, conversation w/ investment consultant Pain: pt denies pain Spoke with pt who is alert but clearly confused . Per with whom I spoke this afternoon she was living at home independently this april and was in [facility] for ecoli sepsis over the holidays. She appears per ct to have a retroperitoneal bleed of unknown origin which contributed to this admission but there is concern the fall nay be from underlying infection associated with the large left upj stone. The pt had this on admission in April 2013 when she had her gallbladder removed and it appeared then as now to be non obstructing and not causing pain. For unclear reasons she never saw urology at that visit or thereafter. 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 There is now concern that although she is afebrile with a nl wbc and improving sed rate her ongoing confusion is indicative of an in infectious process. Additionally today she grew out jesus alberto not albicans today and is on capsofungin.Have had discussions with Dr. Bañuelos this pm regarding this case and with all my partners. There is consensus that attempting a stent placement might introduce infection now fungus into what appears to be a non obstructed upper tract , Also given how long the stone has been present ( clearly a minimum of over 3 years and probably quite longer. ) it is likely impacted and it may be hard to pass a stent. The alternative is to consider transfer for percutaneous nephrostomy but this might introduce infection into the hematoma and give absence of hydronephrosis and her large body habitus and the hematoma it would be difficult . The hope has been that If she would continue to improve on antibiotics then an elective ureteroscopy might be attempted . Dr. Bañuelos and I agreed to try new antifungal meds and if her progress stalls or reverses to attempt stent placement. Problem List Medical Problems: (1) Anemia Status: Acute (2) Creatinine elevation Status: Acute Objective Vital Signs Date Time Temp Pulse Resp B/P Pulse Ox O2 Delivery O2 Flow Rate FiO2 06/22/16 16:00 Room Air 06/22/16 15:20 36.4 66 16 156/69 98 Room Air 06/22/16 12:00 Room Air 06/22/16 11:41 36.8 77 18 142/63 96 2/2/17 08:23 36.8 75 18 158/71 96 06/22/16 08:00 Room Air 06/22/16 04:24 36.8 63 18 143/56 96 Room Air 06/22/16 04:00 Room Air 06/21/16 23:59 Room Air 06/21/16 23:16 36.4 66 18 124/61 95 Room Air 06/21/16 20:00 Room Air Physical Exam Abdomen: non tender, soft Skin: normal color Laboratory Results Last 24 Hours Test 06/21/16 20:11 06/22/16 06:51 06/22/16 08:46 06/22/16 11:14 Bedside Glucose 112 mg/dl 85 mg/dl 150 mg/dl White Blood Count 10.38 K/uL Red Blood Count 3.89 M/uL Hemoglobin 10.6 g/dL Hematocrit 34.5 % Mean Corpuscular Volume 88.7 fL Mean Corpuscular Hemoglobin 27.2 pg Mean Corpuscular Hemoglobin Concent 30.7 g/dl RDW Standard Deviation 52.3 fL RDW Coefficient of Variation 16.7 % Platelet Count 322 K/uL Mean Platelet Volume 9.0 fL Nucleated RBC Absolute Count (auto) 0.02 K/uL Nucleated Red Blood Cells % 0.2 % Sodium Level 145 mmol/L Potassium Level 3.5 mmol/L Chloride Level 109 mmol/L Carbon Dioxide Level 24 mmol/L Anion Gap 12.0 mmol/L Blood Urea Nitrogen 30 mg/dl Creatinine 1.80 mg/dl Est Creatinine Clear Calc Drug Dose 34.1 ml/min Estimated GFR () 30.9 Estimated GFR (Non- 26.7 BUN/Creatinine Ratio 16.4 Random Glucose 107 mg/dl Calcium Level 8.4 mg/dl Test 06/22/16 16:45 Bedside Glucose 138 mg/dl Assessment and Plan will discuss ongoing treatment with partners and timing of possible stent or transfer for perc nephrostomy. Cont antibiotics for now Continued [facility] stay due to: inadequate po fluid intake, voiding difficulties, ambulation difficulties, multiple IV medications needed, other (encephalopathy) Discharge planning: uncertain
[2016-06-22 20:00] VITALS: BP 139/80; PULSE 57; TEMP 36.4; O2SAT 94
[2016-06-23 01:00] VITALS: BP 138/71; PULSE 57; TEMP 36.6; O2SAT 97
[2016-06-23 04:47] VITALS: BP 147/79; PULSE 83; TEMP 36.5; O2SAT 95
[2016-06-23 07:47] VITALS: BP 135/76; PULSE 67; TEMP 36.5; O2SAT 94
[2016-06-23 08:11] LABS: CREATININE 1.8 mg/dl (0.60-1.20)
[2016-06-23] MEDS: CARVEDILOL 25 MG TAB PO SCH ×2 (09:30→22:06)
[2016-06-23] MEDS: THIAMINE HCL 100 MG TAB PO SCH ×2 (09:30→22:01)
[2016-06-23] MEDS: RANITIDINE HCL 150 MG TAB PO SCH (09:30)
[2016-06-23] MEDS: MULTIVITAMIN TAB PO SCH (09:31)
[2016-06-23 09:43] LABS: BASO % 0.3 %; BASO ABS # 0.03 K/uL (0-0.2); COMPLETE YES; EOS % 1.4 %; IG% 0.6 %; LYMPH % 20.7 %; LYMPH ABS # 2.08 K/uL (1.2-3.4); MEAN PLATELET VOLUME 9.6 fL (7.4-10.4); MONO % 5.2 %; NEUT % 71.8 %; PLATELET COUNT 350 K/uL (130-400); RED BLOOD COUNT 4.11 M/uL (4.2-5.4); WHITE BLOOD COUNT 10.03 K/uL (4.8-10.8)
[2016-06-23 10:13] LABS: C-REACTIVE PROTEIN 1.8 mg/dl (0-0.29)
[2016-06-23 11:09] VITALS: BP 121/62; PULSE 54; TEMP 36.6; O2SAT 95
--- NOTE | 2016-06-23 11:13 | Progress Note ---
Subjective Date of Service: Jun 23, 2016. Subjective Pt evaluation today including: conversation w/ patient, physical exam, chart review, lab review pt oob to chair, resting comfortably. has no complaints today, denies f/c, no abd pain, tolerating abx no n/vd/, eating better. remains afebrile. blood cultures remain negative, am labs reveal nml cbc, esr 29, lyme titer pending. still with some confusion but more talkative today. all remaining ros reviewed and are negative, except as noted. Problem List Medical Problems: (1) Anemia Status: Acute (2) Creatinine elevation Status: Acute Objective Vital Signs Date Time Temp Pulse Resp B/P Pulse Ox O2 Delivery O2 Flow Rate FiO2 06/23/16 07:47 36.5 67 18 135/76 94 Room Air 06/23/16 04:47 36.5 83 18 147/79 95 Room Air 06/23/16 04:20 Room Air 06/23/16 01:00 36.6 57 16 138/71 97 Room Air 06/23/16 00:01 Room Air 06/22/16 20:00 Room Air 06/22/16 20:00 36.4 57 20 139/80 94 Room Air 06/22/16 16:00 Room Air 06/22/16 15:20 36.4 66 16 156/69 98 Room Air 06/22/16 12:00 Room Air 06/22/16 11:41 36.8 77 18 142/63 96 Physical Exam General Appearance: WD/WN, no apparent distress Eyes: EOMI Neck: supple Respiratory/Chest: lungs clear Cardiovascular: regular rate, rhythm, no edema Abdomen: non tender, soft Extremities: normal inspection, + pertinent finding (lymphedema, unchanged) Neurologic/Psychiatric: alert, oriented x 3 Skin: normal color Comments: harmon in place Laboratory Results Item Value Date Time Urine Culture - Final Complete 06/19/16 1414 Urine,Catheterized Yeast Not Jane Albicans Blood Culture - Preliminary Resulted 06/20/16 1030 Blood NO GROWTH TO DATE. Blood Culture - Preliminary Resulted 06/20/16 1045 Blood NO GROWTH TO DATE. Last 24 Hours Test 06/22/16 11:14 06/22/16 16:45 06/22/16 20:04 06/23/16 07:00 Bedside Glucose 150 mg/dl 138 mg/dl 135 mg/dl Creatinine 1.80 mg/dl Est Creatinine Clear Calc Drug Dose 34.1 ml/min Estimated GFR () 30.9 Estimated GFR (Non- 26.7 Test 06/23/16 09:28 White Blood Count 10.03 K/uL Red Blood Count 4.11 M/uL Hemoglobin 11.1 g/dL Hematocrit 37.0 % Mean Corpuscular Volume 90.0 fL Mean Corpuscular Hemoglobin 27.0 pg Mean Corpuscular Hemoglobin Concent 30.0 g/dl Platelet Count 350 K/uL Mean Platelet Volume 9.6 fL Neutrophils (%) (Auto) 71.8 % Lymphocytes (%) (Auto) 20.7 % Monocytes (%) (Auto) 5.2 % Eosinophils (%) (Auto) 1.4 % Basophils (%) (Auto) 0.3 % Neutrophils # (Auto) 7.20 K/uL Lymphocytes # (Auto) 2.08 K/uL Monocytes # (Auto) 0.52 K/uL Eosinophils # (Auto) 0.14 K/uL Basophils # (Auto) 0.03 K/uL RDW Standard Deviation 52.9 fL RDW Coefficient of Variation 16.8 % Immature Granulocyte % (Auto) 0.6 % Immature Granulocyte # (Auto) 0.06 K/uL Nucleated RBC Absolute Count (auto) 0.02 K/uL Nucleated Red Blood Cells % 0.2 % Erythrocyte Sedimentation Rate 29 mm/hr Total Bilirubin 0.5 mg/dl Direct Bilirubin 0.2 mg/dl Aspartate Amino Transf (AST/SGOT) 114 U/L Alanine Aminotransferase (ALT/SGPT) 83 U/L Alkaline Phosphatase 100 U/L C-Reactive Protein 1.80 mg/dl Total Protein 6.8 gm/dl Albumin 2.5 gm/dl Assessment and Plan (1) Catheter-associated urinary tract infection Assessment & Plan: continue caspo, 7 days total, concerned stone may be cause of recurrent uti, urology evaluating potential for intervention. If she is to have stone removal/stenting soon, could extend course of caspo for this. If she is to have intervention performed or re-eval for potential intervention at a future date would give caspo dose prior to any future intervention. d/w primary. Continued [facility] stay due to: inadequate po fluid intake, voiding difficulties, ambulation difficulties, multiple IV medications needed, other (encephalopathy) Discharge planning: uncertain
--- NOTE | 2016-06-23 12:54 | Neurology Consultation ---
Neurology Consultation Date of Consultation: Jun 23, 2016. Attending Physician: Sebastian Bañuelos MD Primary Care Physician: Ray Pierson M.D. Reason for Consultation: Consultation for altered mental status History of Present Illness Source: patient, hospital records This is a 75-year-old female who presented to the hospital after multiple falls and UTI. Daughter gives most of the information as the patient herself does not have any cognitive complaints. Daughter reports that she was doing well and living at home independently until April. Of note so the daughter does admit that she was going over to the house and arranging her medication and pillbox. There is also a son that tended come over every day to check up on her. She reports that before the patient was able to drive short distances without any concerns or issues. After the patient started to have multiple falls. She was found to have a UTI and Escherichia coli sepsis. She was noted to have a kidney stone that may be incidental. Afterwards the patient is never returned home. She has been at [facility] in a intermediate for care. Daughter feels that this is been a rapid decline in functioning and mental status. He reports that beforehand her mother may repeat stories over the phone , but now she seems to have no sense of time and needs things explained to her multiple times. Also seems more confused. She reports that when she was given Haldol at one point she became very agitated and violent. Patient does admit to having both visual and auditory hallucinations. She has seen ducks on the floor while in the hospital. She seeing bugs on the wall. She is heard voices saying "unpleasant things" about her and her children. Patient also reports having very vivid nightmares. No overt change in personality. Noted decrease in alertness. No strokelike symptoms. There was an episode which she called up her daughter saying that her eye was blind. I'm not quite sure what this episode was. Daughter does report that she does seem to be more depressed lately and lonely. Hospital workup for altered mental status was reviewed. Patient was initially noted to have a sedimentation rate of 102 that went down to 29 which could be related to current infection. Creatinine noted to be 1.7-1.9. Ammonia, B12 unremarkable. Rajendra is pending. Blood gas was unremarkable. TSH was elevated at 6.3 but had a normal T4 of 1.07. ALT and AST was mildly elevated. CRP is elevated at 1.8. Lyme is pending. UA was unremarkable most recently. Calcium and magnesium were unremarkable MRI of the brain report and images reviewed by myself and noted some minimal T2 hyperintensities in the subcortical white matter likely consistent with age but otherwise unremarkable. Echocardiogram unremarkable Past Medical/Surgical History Medical Problems: (1) Anemia Status: Acute (2) Creatinine elevation Status: Acute A. fib, cardio myopathy, CAD, diabetes, history of DVT, PE, TIA, dyslipidemia, obesity, cardiac cath, hip and knee replacements Family History Family history for cancer. Denies any strokes or seizures within the family Social History Patient has recently been cared for at a intermediate but before April was reportedly living at home fairly independently. Has had recent frequent falls since April. She was walking with a cane and then ultimately a walker before April so there may have been some slow functional decline. No tobacco or alcohol use. No illegal drug use. Smoking Status: Never smoker Smokeless Tobacco Use: No Alcohol Use: none Drug Use: none Marital Status: Housing Status: lives alone Occupation Status: retired Allergies Coded Allergies: Morphine (Unverified Allergy, Intermediate, VOMITING, 06/19/16) Adhesives (Verified Allergy, Unknown, RASH, 06/19/16) Digoxin (Unverified Adverse Reaction, Severe, DIGTOXIC, 06/19/16) Current Inpatient Medications Current Inpatient Medications Medications (Trade) Dose Ordered Sig/Daquan Route Start Time Stop Time Status Last Admin Dose Admin Acetaminophen (Tylenol Tab) 650 mg Q4H PRN PO 06/19/16 16:00 07/19/16 15:59 06/21/16 15:41 650 MG Al Hydrox/Mg Hydrox/Simethicone (Maalox Max Susp) 15 ml Q4H PRN PO 06/19/16 16:00 07/19/16 15:59 Magnesium Hydroxide (Milk Of Magnesia Susp) 30 ml Q12H PRN PO 06/19/16 16:00 07/19/16 15:59 Ondansetron HCl (Zofran Inj) 4 mg Q6H PRN IV 06/19/16 16:00 07/19/16 15:59 Polyethylene (Miralax Powder Packet) 17 gm DAILY PRN PO 06/19/16 16:00 07/19/16 15:59 Carvedilol (Coreg Tab) 25 mg BID PO 06/19/16 21:00 07/19/16 20:59 06/23/16 09:30 25 MG Multivitamins (Multivitamin Tab) 1 tab DAILY PO 06/20/16 09:00 07/20/16 08:59 06/23/16 09:31 1 TAB Ranitidine HCl (zANTac TAB) 150 mg DAILY PO 06/20/16 09:00 07/20/16 08:59 06/23/16 09:30 150 MG Lorazepam (Ativan Inj) 0.5 mg Q4H PRN IV 06/19/16 16:15 07/19/16 16:14 06/20/16 13:46 0.5 MG Lorazepam 1 mg 1 mg Q4HWA PRN IV 06/19/16 16:15 07/19/16 16:14 06/21/16 19:50 1 MG Acetaminophen (Ofirmev Iv) 100 ml @ 400 mls/hr Q8H PRN IV 06/20/16 17:30 07/20/16 17:29 06/20/16 18:03 400 MLS/HR Thiamine HCl 200 mg 200 mg BID PO 06/21/16 11:00 07/21/16 10:59 06/23/16 09:30 200 MG Caspofungin/ Sodium Chloride (Cancidas Inj/ Nss 250ml) 260 ml @ 250 mls/hr Q24H IV 06/22/16 14:00 07/02/16 13:59 06/22/16 14:09 250 MLS/HR Miconazole Nitrate (Desenex Powder) 1 appln PRN PRN EXT 06/22/16 14:15 07/22/16 14:14 Review of Systems Complete review of systems otherwise negative except for the above noted in history of present illness. Physical Exam Vital Signs (Past 24 Hrs): Date Time Temp Pulse Resp B/P Pulse Ox O2 Delivery O2 Flow Rate FiO2 06/23/16 11:09 36.6 54 18 121/62 95 Room Air 06/23/16 07:47 36.5 67 18 135/76 94 Room Air 06/23/16 04:47 36.5 83 18 147/79 95 Room Air 06/23/16 04:20 Room Air 2/3/17 01:00 36.6 57 16 138/71 97 Room Air 06/23/16 00:01 Room Air 06/22/16 20:00 Room Air 06/22/16 20:00 36.4 57 20 139/80 94 Room Air 06/22/16 16:00 Room Air 06/22/16 15:20 36.4 66 16 156/69 98 Room Air Gen.: Patient is alert and sitting in chair, in no acute distress. HEENT: Normocephalic /atraumatic, no scleral icterus Heart: Regular rate and rhythm Extremities: No gross deformities or rashes noted Neurological examination: Mental status: Patient is alert and oriented to person place and time. She correctly gave the date and current president. Patient did have trouble with correctly drawing a clock and interconnecting design. She was able to correctly show me how she would brush her hair. Attention and concentration normal for the situation. Patient was a poor historian for recent events but appeared very willing and able to tell stories that it happen remotely. Speech is fluent without any dysarthria or aphasia noted Cranial nerve: Funduscopic examination was unremarkable. No papilledema. Pupils equally round and reactive to light. Extraocular muscles intact without nystagmus. No facial asymmetry noted. Facial sensation intact. Tongue is midline. Good palatal elevation. Good shoulder shrug bilaterally. Hearing grossly intact to voice. Strength: 5/5 both proximal and distally in bilateral upper extremities. There is no arm drift. Bilateral lower extremities were 4/5 both proximally and distally. Tone is normal. Sensation: Grossly intact to light touch in all extremities, with the exception of decreased sensation below the level of the knees to light touch. Deep tendon reflexes: +1 in bilateral biceps, brachioradialis and +0 patellar. Toes were downgoing to plantar stimulation Coordination: Patient had good finger to nose without dysmetria Station within the chair was normal Laboratory Results Past 24 Hours: 06/23/16 09:28 Red Blood Count 4.11, Mean Corpuscular Volume 90.0, Mean Corpuscular Hemoglobin 27.0, Mean Corpuscular Hemoglobin Concent 30.0, Mean Platelet Volume 9.6, Neutrophils (%) (Auto) 71.8, Lymphocytes (%) (Auto) 20.7, Monocytes (%) (Auto) 5.2, Eosinophils (%) (Auto) 1.4, Basophils (%) (Auto) 0.3, Neutrophils # (Auto) 7.20, Lymphocytes # (Auto) 2.08, Monocytes # (Auto) 0.52, Eosinophils # (Auto) 0.14, Basophils # (Auto) 0.03 06/23/16 07:00 Test 06/22/16 20:04 06/23/16 07:00 06/23/16 09:28 Bedside Glucose 135 mg/dl (70-90) Est Creatinine Clear Calc Drug Dose 34.1 ml/min Estimated GFR () 30.9 Estimated GFR (Non- 26.7 White Blood Count 10.03 K/uL (4.8-10.8) Red Blood Count 4.11 M/uL (4.2-5.4) Hemoglobin 11.1 g/dL (12.0-16.0) Hematocrit 37.0 % (37-47) Mean Corpuscular Volume 90.0 fL (80-100) Mean Corpuscular Hemoglobin 27.0 pg (25-34) Mean Corpuscular Hemoglobin Concent 30.0 g/dl (32-36) Platelet Count 350 K/uL (130-400) Mean Platelet Volume 9.6 fL (7.4-10.4) Neutrophils (%) (Auto) 71.8 % Lymphocytes (%) (Auto) 20.7 % Monocytes (%) (Auto) 5.2 % Eosinophils (%) (Auto) 1.4 % Basophils (%) (Auto) 0.3 % Neutrophils # (Auto) 7.20 K/uL (1.4-6.5) Lymphocytes # (Auto) 2.08 K/uL (1.2-3.4) Monocytes # (Auto) 0.52 K/uL (0.11-0.59) Eosinophils # (Auto) 0.14 K/uL (0-0.5) Basophils # (Auto) 0.03 K/uL (0-0.2) RDW Standard Deviation 52.9 fL (36.4-46.3) RDW Coefficient of Variation 16.8 % (11.5-14.5) Immature Granulocyte % (Auto) 0.6 % Immature Granulocyte # (Auto) 0.06 K/uL (0.00-0.02) Nucleated RBC Absolute Count (auto) 0.02 K/uL (0-0) Nucleated Red Blood Cells % 0.2 % Erythrocyte Sedimentation Rate 29 mm/hr (0-21) Total Bilirubin 0.5 mg/dl (0.2-1) Direct Bilirubin 0.2 mg/dl (0-0.2) Aspartate Amino Transf (AST/SGOT) 114 U/L (15-37) Alanine Aminotransferase (ALT/SGPT) 83 U/L (12-78) Alkaline Phosphatase 100 U/L (45-117) C-Reactive Protein 1.80 mg/dl (0-0.29) Total Protein 6.8 gm/dl (6.4-8.2) Albumin 2.5 gm/dl (3.4-5.0) Imaging As noted above in history of present illness Impression This is a 75-year-old female with acute decline in physical and mental functioning over the last 3 weeks with associated UTIs. 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 Certainly could have a component of acute delirium in the setting of hospitalization and infection. I do not see any signs of stroke or seizure. I do not see any signs concerning for a vasculitis or meningitis. Patient does have some mild metabolic discrepancies such as mild elevated ALT and AST, elevated creatinine, elevated TSH with compensated T4. Most likely cause for acute delirium so would be infection and medications. Patient has been getting Ativan in the hospital, but the daughter reports that she normally gets Ativan at night anyways to sleep on a regular basis. Does not appear to be getting more delirium-type medications than what she normally experiences at home. Plan Agree with minimizing medications that can cause acute delirium. Discussed with the daughter and patient to use Ativan with caution as this can cause delirium EEG for further evaluation of rapid decline in cognition to evaluate for possible seizure etiology. Low suspicion for seizures at this time. I have ordered a Phos to complete her lab work evaluation for acute encephalopathy, although I think this is unlikely contributing. Recommend that she follow up in neurology clinic in approximately 1 month for further cognitive evaluation, and would recommend considering outpatient neuropsych testing to see if her current cognition falls into the setting of an Alzheimer's type dementia. Discussed with the patient and daughter could consider starting a medication like Aricept 5 mg at night for presumed underlying neurodegenerative dementia. Common side effects include GI upset and nausea. There is no warren to start this medication and could be reasonably done as an outpatient. If there is concern for continued rapidly progressive dementia in the future, could consider additional testing such as CTA of the head and lumbar puncture. At this time I do not think these test are needed. Thank you for allowing me to participate in this patient's care. If there is any questions or concerns, feel free to call/page me
--- NOTE | 2016-06-23 12:58 | EEG Procedure Note ---
EEG Procedure Note Date of Service Jun 23, 2016. Start / End Times Start Time: 11:59 AM End Time: 12:19 PM Referring Physician Lucy Liriano History This is a 75-year-old female with reports of rapidly declining cognition and altered mental status. EEG for further evaluation of possible seizure etiology. Home Medication List Scheduled Apixaban (Eliquis), 2.5 MG PO BID Aspirin Enteric Coated (Ecotrin Or Generic), 81 MG PO DAILY Atorvastatin (Lipitor), 40 MG PO DAILY Carvedilol (Coreg), 25 MG PO BID Ceftriaxone Sodium (Rocephin), 1 GM IM DAILY Lorazepam (Ativan), 1 MG PO QID PRN Multiple Vitamin (Multivitamin), 1 TAB PO DAILY Vpeumjuq-Lsphcnyir-Ex (Otic) (Antibiotic Ear), 1 DROP OT UD Ranitidine Hcl (Zantac), 150 MG PO DAILY Triazolam (Triazolam), 0.25 MG PO HS Scheduled PRN Acetaminophen (Acetaminophen), 500 MG PO BID PRN for Pain Tramadol Hcl (Ultram), 50 MG PO BID PRN for Pain Inpatient Medication List Current Inpatient Medications Medications (Trade) Dose Ordered Sig/Daquan Route Start Time Stop Time Status Last Admin Dose Admin Acetaminophen (Tylenol Tab) 650 mg Q4H PRN PO 06/19/16 16:00 07/19/16 15:59 06/21/16 15:41 650 MG Al Hydrox/Mg Hydrox/Simethicone (Maalox Max Susp) 15 ml Q4H PRN PO 06/19/16 16:00 07/19/16 15:59 Magnesium Hydroxide (Milk Of Magnesia Susp) 30 ml Q12H PRN PO 06/19/16 16:00 07/19/16 15:59 Ondansetron HCl (Zofran Inj) 4 mg Q6H PRN IV 06/19/16 16:00 07/19/16 15:59 Polyethylene (Miralax Powder Packet) 17 gm DAILY PRN PO 06/19/16 16:00 07/19/16 15:59 Carvedilol (Coreg Tab) 25 mg BID PO 06/19/16 21:00 07/19/16 20:59 06/23/16 09:30 25 MG Multivitamins (Multivitamin Tab) 1 tab DAILY PO 06/20/16 09:00 07/20/16 08:59 06/23/16 09:31 1 TAB Ranitidine HCl (zANTac TAB) 150 mg DAILY PO 06/20/16 09:00 07/20/16 08:59 06/23/16 09:30 150 MG Lorazepam (Ativan Inj) 0.5 mg Q4H PRN IV 06/19/16 16:15 07/19/16 16:14 06/20/16 13:46 0.5 MG Lorazepam 1 mg 1 mg Q4HWA PRN IV 06/19/16 16:15 07/19/16 16:14 06/21/16 19:50 1 MG Acetaminophen (Ofirmev Iv) 100 ml @ 400 mls/hr Q8H PRN IV 06/20/16 17:30 07/20/16 17:29 06/20/16 18:03 400 MLS/HR Thiamine HCl 200 mg 200 mg BID PO 06/21/16 11:00 07/21/16 10:59 06/23/16 09:30 200 MG Caspofungin/ Sodium Chloride (Cancidas Inj/ Nss 250ml) 260 ml @ 250 mls/hr Q24H IV 06/22/16 14:00 07/02/16 13:59 06/22/16 14:09 250 MLS/HR Miconazole Nitrate (Desenex Powder) 1 appln PRN PRN EXT 06/22/16 14:15 07/22/16 14:14 Description This is a 21 electrode EEG with a single channel dedicated to limited EKG. The electrodes were placed in accordance with the International 10-20 system. There was diffuse frontally predominant muscle artifact noted. At the start of this recording the patient was and reported altered mental status. Background was poorly organized with no well formed anterior to posterior gradient. Background was composed of predominantly 5-6 Hz theta frequencies with intermixed alpha and beta frequencies. Hyperventilation was not done. Photic stimulation at various frequencies produced no abnormalities. There was no state changes or sleep transients. Interpretation This is an abnormal routine EEG secondary to diffuse moderate background disorganization and slowing. There was no electrographic seizures or epileptiform discharges. Clinical Correlation This EEG indicates a moderate encephalopathy of nonspecific etiology.
[2016-06-23 14:28] LABS: LYME DISEASE AB IGG POS (NEG)
[2016-06-23 14:31] LABS: LYME DISEASE AB IGM NEG (NEG)
[2016-06-23 14:56] VITALS: BP 121/62; PULSE 54; TEMP 36.6; O2SAT 95
[2016-06-23] MEDS: CASPOFUNGIN INJ 50 MG in SODIUM CHLORIDE 0.9% 250ML 250 ML IV SCH (15:13)
--- NOTE | 2016-06-23 16:26 | Progress Note ---
Subjective Date of Service: Jun 23, 2016. Subjective Pt evaluation today including: conversation w/ patient, conversation w/ family , physical exam, chart review, lab review, review of inpatient medication list Pain: Denies PO Intake: Tarah PO, no emesis Voiding: no voiding problems 75 yo female admitted with suspected UTI, confusion, currently on capsofungin for 40K non-Jane yeast on urine culture. Patient remains afebrile, mental status currently improved, closer to baseline. Daughter in room, past notes and labwork reviewed. She denies current back pain, significant voiding symptoms or other specific complaints. Problem List Medical Problems: (1) Anemia Status: Acute (2) Creatinine elevation Status: Acute Review of Systems Constitutional: No chills, No fever Eyes: No worsening of vision ENT: No hearing loss Respiratory: No shortness of breath, No wheezing Cardiac: No chest pain Abdomen: No nausea, No vomiting Female : + see HPI, No hematuria Neurologic: + memory loss Psychiatric: No depression symptoms Skin: No color change, No new/changing skin lesions Objective Vital Signs Date Time Temp Pulse Resp B/P Pulse Ox O2 Delivery O2 Flow Rate FiO2 06/23/16 14:56 36.6 54 18 95 06/23/16 12:30 Room Air 06/23/16 11:09 36.6 54 18 121/62 95 Room Air 06/23/16 08:10 Room Air 06/23/16 07:47 36.5 67 18 135/76 94 Room Air 06/23/16 04:47 36.5 83 18 147/79 95 Room Air 06/23/16 04:20 Room Air 06/23/16 01:00 36.6 57 16 138/71 97 Room Air 06/23/16 00:01 Room Air 06/22/16 20:00 Room Air 06/22/16 20:00 36.4 57 20 139/80 94 Room Air Physical Exam General Appearance: WD/WN, no apparent distress ENT: hearing grossly normal Neck: supple, no adenopathy Respiratory/Chest: no respiratory distress, no accessory muscle use Cardiovascular: no JVD Abdomen: non tender, soft Extremities: non-tender Neurologic/Psychiatric: alert Skin: normal color Laboratory Results Last 24 Hours Test 06/22/16 16:45 06/22/16 20:04 06/23/16 07:00 2/3/17 09:28 Bedside Glucose 138 mg/dl 135 mg/dl Creatinine 1.80 mg/dl Est Creatinine Clear Calc Drug Dose 34.1 ml/min Estimated GFR () 30.9 Estimated GFR (Non- 26.7 White Blood Count 10.03 K/uL Red Blood Count 4.11 M/uL Hemoglobin 11.1 g/dL Hematocrit 37.0 % Mean Corpuscular Volume 90.0 fL Mean Corpuscular Hemoglobin 27.0 pg Mean Corpuscular Hemoglobin Concent 30.0 g/dl Platelet Count 350 K/uL Mean Platelet Volume 9.6 fL Neutrophils (%) (Auto) 71.8 % Lymphocytes (%) (Auto) 20.7 % Monocytes (%) (Auto) 5.2 % Eosinophils (%) (Auto) 1.4 % Basophils (%) (Auto) 0.3 % Neutrophils # (Auto) 7.20 K/uL Lymphocytes # (Auto) 2.08 K/uL Monocytes # (Auto) 0.52 K/uL Eosinophils # (Auto) 0.14 K/uL Basophils # (Auto) 0.03 K/uL RDW Standard Deviation 52.9 fL RDW Coefficient of Variation 16.8 % Immature Granulocyte % (Auto) 0.6 % Immature Granulocyte # (Auto) 0.06 K/uL Nucleated RBC Absolute Count (auto) 0.02 K/uL Nucleated Red Blood Cells % 0.2 % Erythrocyte Sedimentation Rate 29 mm/hr Total Bilirubin 0.5 mg/dl Direct Bilirubin 0.2 mg/dl Aspartate Amino Transf (AST/SGOT) 114 U/L Alanine Aminotransferase (ALT/SGPT) 83 U/L Alkaline Phosphatase 100 U/L C-Reactive Protein 1.80 mg/dl Total Protein 6.8 gm/dl Albumin 2.5 gm/dl Lyme Disease IgG Antibody POS Lyme Disease IgM Antibody NEG Assessment and Plan A/P 75 yo female with chronic L UPJ stone, L perirenal hematoma, fungal UTI, improving. Findings reviewed with patient and daughter, care d/w Dr. Bañuelos, hospitalist service. Clinically patient seems to be improving. Neurology consult noted, some element of baseline dementia with decompensation acutely from UTI suspect. Patient hemodynamically stable, would tend to avoid acute surgical intervention in the absence of evidence of decompensation. Long-term plan for stone, complicated by the presence of her apparent subcapsular hematoma is discussed. I will ensure outpatient follow-up with our service in the near future, per family patient will likely be staying in the area for the time being pending improvement of her ongoing health issues. Thank you for allowing us to participate in this patient's care. Please contact our service with any questions or concerns. Will follow as inpatient with you. Continued [facility] stay due to: inadequate po fluid intake, voiding difficulties, ambulation difficulties, multiple IV medications needed, other (encephalopathy) Discharge planning: uncertain
[2016-06-23] MEDS ORDERED: LORAZEPAM 1 MG TAB PO PRN (19:45)
--- NOTE | 2016-06-23 20:27 | Progress Note ---
Subjective Date of Service: Jun 23, 2016. Subjective Pt evaluation today including: conversation w/ patient, conversation w/ family (2 daughters), physical exam, chart review, lab review, review of studies (EEG) , conversation w/ integrity consultant (neurology, urology, retirement medical education specialist , ID), review of inpatient medication list Pain: denies back, flank or abd pain PO Intake: improving Voiding: harmon catheter in place tele with rate-controlled a. fib overnight she is more awake, alert, and able to give more historical information sentence structure today is more appropriate she continues to occasionally ask odd questions, however daughter reports she was very confused this AM but now improved outpatient records indicate that patient was to have EMGs due to falls but these were declined by patient daughters wish for mother to go to [facility] for acute rehab following this hospital stay 2nd daughter states that their brother reports very, very mild cognitive decline last 6 months Problem List Medical Problems: (1) Anemia Status: Acute (2) Creatinine elevation Status: Acute Review of Systems Constitutional: No fever Respiratory: No cough, No dyspnea on exertion, No shortness of breath Cardiac: No chest pain Abdomen: No diarrhea, No nausea, No pain, No vomiting Objective Vital Signs Date Time Temp Pulse Resp B/P Pulse Ox O2 Delivery O2 Flow Rate FiO2 06/23/16 16:00 Room Air 06/23/16 14:56 36.6 54 18 95 06/23/16 12:30 Room Air 06/23/16 11:09 36.6 54 18 121/62 95 Room Air 06/23/16 08:10 Room Air 06/23/16 07:47 36.5 67 18 135/76 94 Room Air 06/23/16 04:47 36.5 83 18 147/79 95 Room Air 06/23/16 04:20 Room Air 06/23/16 01:00 36.6 57 16 138/71 97 Room Air 06/23/16 00:01 Room Air Physical Exam General Appearance: no apparent distress, + obese, + pertinent finding (looks much better; more awake/alert) ENT: pharynx normal Neck: no JVD Respiratory/Chest: lungs clear, no respiratory distress, no accessory muscle use, + decreased breath sounds (left base only) Cardiovascular: no gallop, no murmur, + irregularly irregular Abdomen: normal bowel sounds, non tender, soft, no organomegaly Extremities: no pedal edema Neurologic/Psychiatric: alert, + pertinent finding (oriented to person, place, but not time) Laboratory Results Last 24 Hours Test 06/23/16 07:00 06/23/16 09:28 Creatinine 1.80 mg/dl Est Creatinine Clear Calc Drug Dose 34.1 ml/min Estimated GFR () 30.9 Estimated GFR (Non- 26.7 White Blood Count 10.03 K/uL Red Blood Count 4.11 M/uL Hemoglobin 11.1 g/dL Hematocrit 37.0 % Mean Corpuscular Volume 90.0 fL Mean Corpuscular Hemoglobin 27.0 pg Mean Corpuscular Hemoglobin Concent 30.0 g/dl Platelet Count 350 K/uL Mean Platelet Volume 9.6 fL Neutrophils (%) (Auto) 71.8 % Lymphocytes (%) (Auto) 20.7 % Monocytes (%) (Auto) 5.2 % Eosinophils (%) (Auto) 1.4 % Basophils (%) (Auto) 0.3 % Neutrophils # (Auto) 7.20 K/uL Lymphocytes # (Auto) 2.08 K/uL Monocytes # (Auto) 0.52 K/uL Eosinophils # (Auto) 0.14 K/uL Basophils # (Auto) 0.03 K/uL RDW Standard Deviation 52.9 fL RDW Coefficient of Variation 16.8 % Immature Granulocyte % (Auto) 0.6 % Immature Granulocyte # (Auto) 0.06 K/uL Nucleated RBC Absolute Count (auto) 0.02 K/uL Nucleated Red Blood Cells % 0.2 % Erythrocyte Sedimentation Rate 29 mm/hr Total Bilirubin 0.5 mg/dl Direct Bilirubin 0.2 mg/dl Aspartate Amino Transf (AST/SGOT) 114 U/L Alanine Aminotransferase (ALT/SGPT) 83 U/L Alkaline Phosphatase 100 U/L C-Reactive Protein 1.80 mg/dl Total Protein 6.8 gm/dl Albumin 2.5 gm/dl Lyme Disease IgG Antibody POS Lyme Disease IgM Antibody NEG Assessment and Plan 75yo female with: 1. sepsis likely due to fungal UTI - improved. 2. fungal UTI - day #3 caspofungin. Blood cx's negative for such. Plan 7 days of caspofungin per ID recommendations. 3. encephalopathy - presumed to be metabolic from infectious cause. Ongoing but again improved today. Ammonia, b12, VBG, MRI brain - all negative/normal. B1 level sent; thiamine started. Avoid excessive benzos/sedatives/heavy narcotics. No signs/symptoms of meningitis. Lymes + but doubt this is FILBERT GROWER lymes. See below. 4. back pain in setting of recent falls - t-spine/l-spine x-rays with old Lumbar compression Fx only. No signs/symptoms of diskitis on exam. Back pain could be due to retroperitoneal bleed. pain resolved. 5. acute blood loss anemia 2nd to retroperitoneal bleeding - H/H stable. 6. a. fib on chronic anticoagulation - holding latter 2nd to #5. Rates controlled. 7. acute kidney injury in setting of CKD stage 3 - SALVADOR resolved, Cr at baseline of 1.8. 8. large left-sided renal stone - urology consult appreciated. Multiple discussions held with urology attendings/ PA this week. At this time there is no plans for stent placement while hospitalized. 9. abnormal TSH with preserved Ft4 - would not Rx with synthroid at this time; repeat TFTs in 6 weeks as outpatient. 10. abnormal LFTs (ast/alt) - improved this hospitalization but still mildly high. No signs/symptoms of biliary tract disease. Could be from fatty liver. Is s/p cholecystectomy in the past. 11. DVT proph - SCDs; chemical means contraindicated. 12. chronic systolic CHF - compensated. 13. T2DM - adequate control; novolog SSI for now. 14. h/o TIA - noted. Resume asa/eliquis when stable from heme standpoint. 15. protein calorie malnutrition - ongoing, but appetite improving. 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 17. b/l hip pain - resolved. 18. morbid obesity with BMI 41 - noted. 19. FEN - diet as tolerated, lytes stable. 20. +lyme's screen - I am unclear as to the significance of this in light of the above issues. While awaiting western blot place on doxycycline 100mg BID. She does not have meningitic signs to suggest FILBERT GROWER lymes. nothing on exam otherwise to suggest lymes. daughters extensively updated again today PT, OT consultations appreciated ok to transfer to med/surg dispo - SNF ([facility]) Continued [facility] stay due to: voiding difficulties, ambulation difficulties, multiple IV medications needed, other (encephalopathy) [facility]charge [facility]
[2016-06-23] MEDS: DOXYCYCLINE HYCLATE 100 MG CAP PO SCH (22:00)
[2016-06-24 00:11] VITALS: BP 170/94; PULSE 65; TEMP 36.4; O2SAT 97
[2016-06-24 07:12] VITALS: BP 159/85; PULSE 58; TEMP 36.5; O2SAT 97
[2016-06-24] MEDS: MULTIVITAMIN TAB PO SCH (08:54)
[2016-06-24] MEDS: DOXYCYCLINE HYCLATE 100 MG CAP PO SCH ×2 (08:54→20:27)
[2016-06-24] MEDS: THIAMINE HCL 100 MG TAB PO SCH ×2 (08:55→20:27)
[2016-06-24] MEDS: CARVEDILOL 25 MG TAB PO SCH ×2 (08:55→20:27)
--- NOTE | 2016-06-24 10:37 | Progress Note ---
Subjective Date of Service: Jun 24, 2016. Subjective Pt evaluation today including: conversation w/ patient, conversation w/ family (daughter at bedside), physical exam, chart review, lab review, review of inpatient medication list Pain: denies any abd or back pain PO Intake: improving Voiding: no voiding problems had diarrhea overnight and again this am no abdominal pain however denies nausea/emesis she is still confused albeit much improved relative to earlier this week knows it is 2016 and that she is at [facility] with respect to +lymes screen -- does not have dogs at her home, and has had no outdoor exposure over the summer; daughter confirms such Problem List Medical Problems: (1) Anemia Status: Acute (2) Creatinine elevation Status: Acute Review of Systems Constitutional: No fever Respiratory: No dyspnea on exertion, No shortness of breath Cardiac: No chest pain, No orthopnea Abdomen: No pain Objective Vital Signs Date Time Temp Pulse Resp B/P Pulse Ox O2 Delivery O2 Flow Rate FiO2 06/24/16 07:12 36.5 58 20 159/85 97 Room Air 06/24/16 00:11 36.4 65 18 170/94 97 Room Air 06/24/16 00:00 Room Air 06/23/16 20:00 Room Air 06/23/16 16:00 Room Air 06/23/16 14:56 36.6 54 18 95 06/23/16 12:30 Room Air 06/23/16 11:09 36.6 54 18 121/62 95 Room Air Physical Exam General Appearance: no apparent distress, + obese ENT: pharynx normal Neck: no JVD Respiratory/Chest: lungs clear, no respiratory distress, no accessory muscle use, + decreased breath sounds (left base) Cardiovascular: no gallop, no murmur, + irregularly irregular Abdomen: normal bowel sounds, non tender, soft, no organomegaly Extremities: no pedal edema Neurologic/Psychiatric: alert, + pertinent finding (cannot tell me the months of the year backwards; oriented to year, person, place today) Skin: no rash Laboratory Results Last 24 Hours Test 06/24/16 05:54 Phosphorus Level 3.2 mg/dl Assessment and Plan 75yo female with: 1. sepsis likely due to fungal UTI - improved. 2. fungal UTI - day #4 caspofungin. Blood cx's negative for such. Plan 7 days of caspofungin per ID recommendations. 3. encephalopathy - day to day continues to improve. presumed to be metabolic from infectious cause. Ammonia, b12, VBG, MRI brain - all negative/normal. B1 level sent; thiamine started. Avoid excessive benzos/sedatives/heavy narcotics. No signs/symptoms of meningitis. Lymes + but doubt this is SOAKER HIDES lymes. See below. 4. back pain in setting of recent falls - t-spine/l-spine x-rays with old Lumbar compression Fx only. no c/o pain in several days. 5. acute blood loss anemia 2nd to retroperitoneal bleeding - H/H stable. repeat CBC am. 6. a. fib on chronic anticoagulation - holding latter 2nd to #5. Rates controlled. 7. acute kidney injury in setting of CKD stage 3 - SALVADOR resolved, Cr at baseline of 1.8. repeat BMP am for stability. 8. large left-sided renal stone - urology consult appreciated. Multiple discussions held with urology attendings/ PA this week. At this time there is no plans for stent placement while hospitalized. 9. abnormal TSH with preserved Ft4 - would not Rx with synthroid at this time; repeat TFTs in 6 weeks as outpatient. 10. abnormal LFTs (ast/alt) - improved this hospitalization but still mildly high. No signs/symptoms of biliary tract disease. Could be from fatty liver. Is s/p cholecystectomy in the past. 11. DVT proph - SCDs; chemical means contraindicated. 12. chronic systolic CHF - compensated. 13. T2DM - adequate control. 14. h/o TIA - noted. resume aspirin - maybe in about 1-2 weeks? may not be candidate for going back on eliquis in future. 15. protein calorie malnutrition - improved appetite. 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 SCDs for DVT proph. 17. b/l hip pain - resolved. 18. morbid obesity with BMI 41 - noted. 19. FEN - diet as tolerated, lytes stable including phos level. 20. +lyme's screen - I am unclear as to the significance of this in light of the above issues. While awaiting western blot placed on doxycycline 100mg BID. Day #2 today. She does not have meningitic signs to suggest SOAKER HIDES lymes. nothing on exam otherwise to suggest lymes. EKG with no AV block. await western blot. 21. diarrhea - send stool for c. diff daughter updated at bedside PT, OT consultations appreciated dispo - SNF ([facility]) Continued [facility] stay due to: ambulation difficulties, multiple IV medications needed, other (encephalopathy) [facility]
--- NOTE | 2016-06-24 11:05 | Progress Note ---
Subjective Date of Service: Jun 24, 2016. Subjective Pt evaluation today including: conversation w/ patient, conversation w/ family , physical exam, chart review, lab review, review of inpatient medication list Pain: Denies PO Intake: Tarah PO Voiding: no voiding problems 75 yo female with L stone, non-candidal yeast UTI, altered MS currently on IV capsofungin. Past notes reviewed. She is conversant, seems more alert this AM than in past. 2 daughters in room today. Remains afebrile, no leukocytosis noted. Problem List Medical Problems: (1) Anemia Status: Acute (2) Creatinine elevation Status: Acute Review of Systems Constitutional: No chills, No fever Eyes: No worsening of vision ENT: No hearing loss Respiratory: No shortness of breath, No sputum, No wheezing Cardiac: No chest pain Abdomen: No nausea, No vomiting Female : No hematuria Neurologic: + memory loss Heme: No abnormal bleeding/bruising Skin: No new/changing skin lesions Objective Vital Signs Date Time Temp Pulse Resp B/P Pulse Ox O2 Delivery O2 Flow Rate FiO2 06/24/16 10:37 Room Air 06/24/16 07:12 36.5 58 20 159/85 97 Room Air 06/24/16 00:11 36.4 65 18 170/94 97 Room Air 06/24/16 00:00 Room Air 06/23/16 20:00 Room Air 06/23/16 16:00 Room Air 06/23/16 14:56 36.6 54 18 95 06/23/16 12:30 Room Air 06/23/16 11:09 36.6 54 18 121/62 95 Room Air Physical Exam General Appearance: no apparent distress, + thin ENT: hearing grossly normal Neck: supple, no adenopathy Respiratory/Chest: no accessory muscle use Cardiovascular: no JVD Abdomen: non tender, soft Neurologic/Psychiatric: alert Skin: normal color Laboratory Results Last 24 Hours Test 06/24/16 05:54 Phosphorus Level 3.2 mg/dl Assessment and Plan A/P 75 yo female with chronic L UPJ stone, L perirenal hematoma, fungal UTI, improving mental status. Seems to be stabilizing on current regimen. Findings discussed with daughters. Will delay intervention for her stone if possible and she continues to remain stable. Outpatient follow-up with our service is in place. [facility] desired by family. No acute intervention planned at this time Continued [facility] stay due to: ambulation difficulties, multiple IV medications needed, other (encephalopathy) Discharge planning[facility] facility
[2016-06-24] MEDS: RANITIDINE HCL 150 MG TAB PO SCH (11:55)
[2016-06-24] MEDS: CASPOFUNGIN INJ 50 MG in SODIUM CHLORIDE 0.9% 250ML 250 ML IV SCH (13:59)
[2016-06-24 15:58] VITALS: BP 123/76; PULSE 60; TEMP 36.3; O2SAT 96
[2016-06-24 20:24] VITALS: BP 161/84; PULSE 71
[2016-06-25 00:44] VITALS: BP 142/71; PULSE 57; TEMP 36.5; O2SAT 97
[2016-06-25 08:07] VITALS: BP 135/72; PULSE 60; TEMP 36.4; O2SAT 95
[2016-06-25] MEDS: RANITIDINE HCL 150 MG TAB PO SCH (08:16)
[2016-06-25] MEDS: MULTIVITAMIN TAB PO SCH (08:16)
[2016-06-25] MEDS: DOXYCYCLINE HYCLATE 100 MG CAP PO SCH ×2 (08:16→19:33)
[2016-06-25] MEDS: THIAMINE HCL 100 MG TAB PO SCH ×3 (08:16→19:34)
[2016-06-25] MEDS: CARVEDILOL 25 MG TAB PO SCH ×2 (08:16→19:33)
[2016-06-25 08:24] LABS: BASO % 0.4 %; BASO ABS # 0.03 K/uL (0-0.2); COMPLETE YES; EOS % 1.9 %; HEMATOCRIT 38.4 % (37-47); IG% 0.5 %; LYMPH % 22.4 %; MEAN CELL VOLUME 90.8 fL (80-100); MEAN CORPUSCULAR HEMOGLOBIN 27.7 pg (25-34); MEAN CORPUSCULAR HGB CONC 30.5 g/dl (32-36); MEAN PLATELET VOLUME 9.8 fL (7.4-10.4); MONO % 6.5 %; NEUT % 68.3 %; PLATELET COUNT 320 K/uL (130-400); RED BLOOD COUNT 4.23 M/uL (4.2-5.4); WHITE BLOOD COUNT 8.49 K/uL (4.8-10.8)
[2016-06-25 08:51] LABS: BUN/CREATININE RATIO 15.9 (10-20); CALCIUM 8.8 mg/dl (8.5-10.1); CREATININE 1.5 mg/dl (0.60-1.20); POTASSIUM 3.7 mmol/L (3.5-5.1)
[2016-06-25] MEDS: CASPOFUNGIN INJ 50 MG in SODIUM CHLORIDE 0.9% 250ML 250 ML IV SCH (13:29)
--- NOTE | 2016-06-25 13:54 | Progress Note ---
Subjective Date of Service: Jun 25, 2016. Subjective Pt evaluation today including: conversation w/ patient, physical exam, chart review, lab review, review of inpatient medication list Pain: Denies PO Intake: Tarah PO Voiding: no voiding problems 75 yo female with altered MS, yeast UTI, remains on IV capsofungin. She is communicative, seems improved in terms of MS slowly but consistently. No new complaints. Problem List Medical Problems: (1) Anemia Status: Acute (2) Creatinine elevation Status: Acute Review of Systems Constitutional: No chills, No fever Eyes: No worsening of vision ENT: No hearing loss Respiratory: No shortness of breath, No sputum, No wheezing Cardiac: No chest pain Abdomen: No nausea, No vomiting Female : No hematuria Neurologic: No paralysis Psychiatric: No anxiety Skin: No new/changing skin lesions Objective Vital Signs Date Time Temp Pulse Resp B/P Pulse Ox O2 Delivery O2 Flow Rate FiO2 06/25/16 10:23 Room Air 06/25/16 08:07 36.4 60 20 135/72 95 06/25/16 00:44 36.5 57 18 142/71 97 Room Air 06/25/16 00:00 Room Air 06/24/16 21:00 Room Air 06/24/16 20:24 71 161/84 06/24/16 15:58 36.3 60 20 123/76 96 Physical Exam General Appearance: WD/WN, no apparent distress ENT: hearing grossly normal Neck: supple, no adenopathy Respiratory/Chest: no respiratory distress, no accessory muscle use Cardiovascular: no JVD Abdomen: non tender, soft Neurologic/Psychiatric: alert Skin: normal color Laboratory Results Last 24 Hours Test 06/25/16 07:42 06/25/16 08:18 06/25/16 11:35 Bedside Glucose 98 mg/dl 180 mg/dl White Blood Count 8.49 K/uL Red Blood Count 4.23 M/uL Hemoglobin 11.7 g/dL Hematocrit 38.4 % Mean Corpuscular Volume 90.8 fL Mean Corpuscular Hemoglobin 27.7 pg Mean Corpuscular Hemoglobin Concent 30.5 g/dl Platelet Count 320 K/uL Mean Platelet Volume 9.8 fL Neutrophils (%) (Auto) 68.3 % Lymphocytes (%) (Auto) 22.4 % Monocytes (%) (Auto) 6.5 % Eosinophils (%) (Auto) 1.9 % Basophils (%) (Auto) 0.4 % Neutrophils # (Auto) 5.81 K/uL Lymphocytes # (Auto) 1.90 K/uL Monocytes # (Auto) 0.55 K/uL Eosinophils # (Auto) 0.16 K/uL Basophils # (Auto) 0.03 K/uL RDW Standard Deviation 55.7 fL RDW Coefficient of Variation 17.4 % Immature Granulocyte % (Auto) 0.5 % Immature Granulocyte # (Auto) 0.04 K/uL Sodium Level 143 mmol/L Potassium Level 3.7 mmol/L Chloride Level 109 mmol/L Carbon Dioxide Level 24 mmol/L Anion Gap 10.0 mmol/L Blood Urea Nitrogen 24 mg/dl Creatinine 1.50 mg/dl Est Creatinine Clear Calc Drug Dose 41.0 ml/min Estimated GFR () 38.5 Estimated GFR (Non- 33.3 BUN/Creatinine Ratio 15.9 Random Glucose 109 mg/dl Calcium Level 8.8 mg/dl Aspartate Amino Transf (AST/SGOT) 82 U/L Alanine Aminotransferase (ALT/SGPT) 82 U/L Assessment and Plan A/P 75 yo female with chronic L UPJ stone, L perirenal hematoma, fungal UTI, improving mental status. Seems to be doing well on current regimen. Will sign off. Outpatient follow-up arranged, can call office for time. No acute intervention planned at this time. Thank you for allowing us to participate in this patient's care. Please recall our service as needed for any questions and concerns. Continued [facility] stay due to: ambulation difficulties, multiple IV medications needed, other (encephalopathy) Discharge planning: assisted facility
[2016-06-25 15:18] VITALS: BP 133/66; PULSE 61; TEMP 36.5; O2SAT 96
--- NOTE | 2016-06-25 15:48 | Progress Note ---
Subjective Date of Service: Jun 25, 2016. Subjective Pt evaluation today including: conversation w/ patient, conversation w/ family (daughters and grand-daughter at bedside), physical exam, chart review, lab review, review of inpatient medication list Pain: occasional, intermittent, mild low back pain only; no flank/abd pain PO Intake: much improved Voiding: no voiding problems no issues overnight per staff however, she is having very vivid dreams that "are scaring her" she never has dreams like this at home no further diarrhea no nausea/emesis no sob or cough Problem List Medical Problems: (1) Anemia Status: Acute (2) Creatinine elevation Status: Acute Review of Systems Constitutional: No fever Respiratory: No cough, No shortness of breath Cardiac: No chest pain Abdomen: No pain Female : No dysuria Objective Vital Signs Date Time Temp Pulse Resp B/P Pulse Ox O2 Delivery O2 Flow Rate FiO2 06/25/16 15:18 36.5 61 20 133/66 96 06/25/16 10:23 Room Air 06/25/16 08:07 36.4 60 20 135/72 95 06/25/16 00:44 36.5 57 18 142/71 97 Room Air 06/25/16 00:00 Room Air 06/24/16 21:00 Room Air 06/24/16 20:24 71 161/84 06/24/16 15:58 36.3 60 20 123/76 96 Physical Exam General Appearance: no apparent distress Eyes: + pertinent finding (no nystagmus) ENT: pharynx normal Neck: no JVD Respiratory/Chest: lungs clear, no respiratory distress, no accessory muscle use Cardiovascular: no gallop, no murmur, + irregularly irregular Abdomen: normal bowel sounds, non tender, soft, no organomegaly Extremities: no pedal edema Neurologic/Psychiatric: no motor/sensory deficits, alert, oriented x 3, + pertinent finding (still cannot tell me the months of the year backwards) Skin: + pertinent finding (bruise on left knee resolved ) Laboratory Results Last 24 Hours Test 06/25/16 07:42 06/25/16 08:18 06/25/16 11:35 Bedside Glucose 98 mg/dl 180 mg/dl White Blood Count 8.49 K/uL Red Blood Count 4.23 M/uL Hemoglobin 11.7 g/dL Hematocrit 38.4 % Mean Corpuscular Volume 90.8 fL Mean Corpuscular Hemoglobin 27.7 pg Mean Corpuscular Hemoglobin Concent 30.5 g/dl Platelet Count 320 K/uL Mean Platelet Volume 9.8 fL Neutrophils (%) (Auto) 68.3 % Lymphocytes (%) (Auto) 22.4 % Monocytes (%) (Auto) 6.5 % Eosinophils (%) (Auto) 1.9 % Basophils (%) (Auto) 0.4 % Neutrophils # (Auto) 5.81 K/uL Lymphocytes # (Auto) 1.90 K/uL Monocytes # (Auto) 0.55 K/uL Eosinophils # (Auto) 0.16 K/uL Basophils # (Auto) 0.03 K/uL RDW Standard Deviation 55.7 fL RDW Coefficient of Variation 17.4 % Immature Granulocyte % (Auto) 0.5 % Immature Granulocyte # (Auto) 0.04 K/uL Sodium Level 143 mmol/L Potassium Level 3.7 mmol/L Chloride Level 109 mmol/L Carbon Dioxide Level 24 mmol/L Anion Gap 10.0 mmol/L Blood Urea Nitrogen 24 mg/dl Creatinine 1.50 mg/dl Est Creatinine Clear Calc Drug Dose 41.0 ml/min Estimated GFR () 38.5 Estimated GFR (Non- 33.3 BUN/Creatinine Ratio 15.9 Random Glucose 109 mg/dl Calcium Level 8.8 mg/dl Aspartate Amino Transf (AST/SGOT) 82 U/L Alanine Aminotransferase (ALT/SGPT) 82 U/L Assessment and Plan 75yo female with: 1. sepsis likely due to fungal UTI - resolved. 2. fungal UTI - day #5 caspofungin. Blood cx's negative for such. Plan 7 days of caspofungin per ID recommendations. 3. encephalopathy - markedly improved over the last 5-7 days. A/o x 3 today, although attention is still poor (cannot perform serial months, etc). Presumed to be metabolic from UTI. Ammonia, b12, VBG, MRI brain - all negative/normal. B1 level undetectable - see below. This very well could have been contributing to symptoms over the last few weeks. Avoid excessive benzos/sedatives/heavy narcotics. No signs/symptoms of meningitis. Lymes + but doubt this is MANAGER STRATEGIC DEVELOPMENT lymes. See below. Dr. Liriano saw patient a few days ago and feels there could be element of early dementia / mild cognitive impairment at baseline. 4. back pain in setting of recent falls - t-spine/l-spine x-rays with old Lumbar compression Fx only. 5. acute blood loss anemia 2nd to retroperitoneal bleeding - H/H stable. repeat CBC today stable. 6. a. fib on chronic anticoagulation - holding latter 2nd to #5. Rates controlled. 7. acute kidney injury in setting of CKD stage 3 - SALVADOR resolved, Cr continuing to improve to 1.5 today. 8. large left-sided renal stone - urology consult appreciated. Multiple discussions held with urology attendings/ PA this week. At this time there is no plans for stent placement while hospitalized. 9. abnormal TSH with preserved Ft4 - would not Rx with synthroid at this time; repeat TFTs in 6 weeks as outpatient. 10. abnormal LFTs (ast/alt) - improved this hospitalization but still mildly high. No signs/symptoms of biliary tract disease. Could be from fatty liver. Is s/p cholecystectomy in the past. AST/ALT nearly normal today. 11. DVT proph - SCDs; chemical means contraindicated. 12. chronic systolic CHF - compensated. 13. T2DM - adequate control. 14. h/o TIA - noted. resume aspirin - maybe in about 1-2 weeks? may not be candidate for going back on eliquis in future. 15. protein calorie malnutrition - improved appetite. Added boost glucose control BID with meals. 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 SCDs for DVT proph. 17. b/l hip pain - resolved. 18. morbid obesity with BMI 41 - noted. 19. FEN - diet as tolerated, lytes stable including phos level. 20. +lyme's screen - I am unclear as to the significance of this in light of the above issues. While awaiting western blot placed on doxycycline 100mg BID. Day #3 today. She does not have meningitic signs to suggest MANAGER STRATEGIC DEVELOPMENT lymes. nothing on exam otherwise to suggest chronic lymes. EKG with no AV block. await western blot. 21. diarrhea - resolved. 22. thiamine deficiency - B1 level returned today undetectable. Increase thiamine from BID to TID dosing (200 TID). This very well could have been contributing to mental status issues over the last 1-2 months at home. Deserves aggressive replenishment over the next few weeks. daughters updated at bedside PT, OT consultations appreciated dispo - SNF ([facility]) - maybe Sunday06/26/16?? Continued [facility] stay due to: ambulation difficulties, multiple IV medications needed, other (encephalopathy) Discharge planning: assisted facility
[2016-06-25] MEDS: BOOST GLUCOSE CONTROL PO SCH (16:30)
[2016-06-25 19:32] VITALS: BP 116/70; PULSE 60
[2016-06-25] MEDS ORDERED: THIAMINE HCL 100 MG TAB PO SCH (20:00)
[2016-06-26] VITALS (8 sets, daily range): BP systolic 122–152; BP diastolic 67–84; PULSE 60–101; TEMP 36.4–36.6; O2SAT 95–99
[2016-06-26] MEDS: CARVEDILOL 25 MG TAB PO SCH ×2 (07:46→21:46)
[2016-06-26] MEDS: THIAMINE HCL 100 MG TAB PO SCH ×3 (07:47→21:46)
[2016-06-26] MEDS: RANITIDINE HCL 150 MG TAB PO SCH (07:47)
[2016-06-26] MEDS: MULTIVITAMIN TAB PO SCH (07:47)
[2016-06-26] MEDS: DOXYCYCLINE HYCLATE 100 MG CAP PO SCH ×2 (07:47→21:46)
[2016-06-26] MEDS: CASPOFUNGIN INJ 50 MG in SODIUM CHLORIDE 0.9% 250ML 250 ML IV SCH (14:41)
[2016-06-26] MEDS: BOOST GLUCOSE CONTROL PO SCH ×2 (14:42→17:48)
--- NOTE | 2016-06-26 14:42 | Progress Note ---
Subjective Date of Service: Jun 26, 2016. Subjective Pt evaluation today including: conversation w/ patient, physical exam, lab review, review of inpatient medication list Pain: denies pain PO Intake: says her appetite is poor Voiding: no voiding problems no complaints of vivid dreams today although she has some confusion, states she has been in hospital since April and has lost 65 pounds discussed that she has one more day of Caspofungin, plan to go to SNF once available no other issues to discuss today Problem List Medical Problems: (1) Anemia Status: Acute (2) Creatinine elevation Status: Acute Review of Systems Constitutional: + fatigue, + weakness Abdomen: + problem reported (decreased appetite) All Other Systems: Reviewed and Negative Medications Current Inpatient Medications Medications (Trade) Dose Ordered Sig/Daquan Route Start Time Stop Time Status Last Admin Dose Admin Acetaminophen (Tylenol Tab) 650 mg Q4H PRN PO 06/19/16 16:00 07/19/16 15:59 06/21/16 15:41 650 MG Al Hydrox/Mg Hydrox/Simethicone (Maalox Max Susp) 15 ml Q4H PRN PO 06/19/16 16:00 07/19/16 15:59 Magnesium Hydroxide (Milk Of Magnesia Susp) 30 ml Q12H PRN PO 06/19/16 16:00 07/19/16 15:59 Ondansetron HCl (Zofran Inj) 4 mg Q6H PRN IV 06/19/16 16:00 07/19/16 15:59 Polyethylene (Miralax Powder Packet) 17 gm DAILY PRN PO 06/19/16 16:00 07/19/16 15:59 Carvedilol (Coreg Tab) 25 mg BID PO 06/19/16 21:00 07/19/16 20:59 06/26/16 07:46 25 MG Multivitamins (Multivitamin Tab) 1 tab DAILY PO 06/20/16 09:00 07/20/16 08:59 06/26/16 07:47 1 TAB Ranitidine HCl 150 mg 150 mg DAILY PO 06/20/16 09:00 07/20/16 08:59 06/26/16 07:47 150 MG Acetaminophen 100 ml @ 400 mls/hr Q8H PRN IV 06/20/16 17:30 07/20/16 17:29 06/20/16 18:03 400 MLS/HR Caspofungin/ Sodium Chloride (Cancidas Inj/ Nss 250ml) 260 ml @ 250 mls/hr Q24H IV 06/22/16 14:00 07/02/16 13:59 06/25/16 13:29 250 MLS/HR Miconazole Nitrate (Desenex Powder) 1 appln PRN PRN EXT 06/22/16 14:15 07/22/16 14:14 Lorazepam (Ativan Tab) 1 mg Q6H PRN PO 06/23/16 19:45 07/23/16 19:44 Doxycycline Hyclate (Vibramycin Cap) 100 mg BID PO 06/23/16 20:00 07/03/16 19:59 06/26/16 07:47 100 MG Thiamine HCl (Vitamin B-1 Tab) 200 mg TID PO 06/25/16 16:00 07/25/16 15:59 06/26/16 07:47 200 MG Enteral Nutritional Formula (Boost Glucose Control) 1 can BIDM PO 06/25/16 17:00 07/25/16 16:59 06/25/16 16:30 1 CAN Objective Vital Signs Date Time Temp Pulse Resp B/P Pulse Ox O2 Delivery O2 Flow Rate FiO2 06/26/16 13:39 Room Air 06/26/16 11:55 69 95 06/26/16 08:26 36.5 61 20 138/67 97 06/26/16 07:45 101 133/79 06/26/16 02:24 Room Air 06/26/16 00:12 36.4 66 18 141/69 97 Room Air 06/25/16 19:32 60 116/70 06/25/16 19:06 Room Air 06/25/16 15:18 36.5 61 20 133/66 96 Physical Exam General Appearance: WD/WN, no apparent distress Neck: supple, no adenopathy, no JVD, trachea midline Respiratory/Chest: chest non-tender, lungs clear, normal breath sounds, no respiratory distress, no accessory muscle use Cardiovascular: regular rate, rhythm, no edema, no gallop, no JVD, no murmur Abdomen: normal bowel sounds, non tender, soft, no organomegaly Extremities: normal range of motion, non-tender, normal inspection, no pedal edema, no calf tenderness, pelvis stable Neurologic/Psychiatric: tanning consultant 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 tested, no motor/sensory deficits, alert, normal mood/affect, oriented x 3 Skin: normal color, warm/dry, no rash Lymphatic: no adenopathy Laboratory Results Last 24 Hours Test 06/25/16 16:13 06/25/16 20:03 06/26/16 07:30 06/26/16 11:43 Bedside Glucose 157 mg/dl 141 mg/dl 109 mg/dl 123 mg/dl Assessment and Plan 75yo female with: 1. sepsis likely due to fungal UTI - resolved. 2. fungal UTI - day #6 caspofungin. Blood cx's negative for such. Plan 7 days of caspofungin per ID recommendations. tomorrow last day 3. encephalopathy - markedly improved over the last 5-7 days. A/o x 3 today, although attention is still poor (cannot perform serial months, etc). Presumed to be metabolic from UTI as well as acute renal failure (resolved) Ammonia, b12, VBG, MRI brain - all negative/normal. B1 level undetectable - see below. This very well could have been contributing to symptoms over the last few weeks. Avoid excessive benzos/sedatives/heavy narcotics. No signs/symptoms of meningitis. Lymes + but doubt this is INSTALLMENT DEALER lymes. See below. Dr. Liriano saw patient a few days ago and feels there could be element of early dementia / mild cognitive impairment at baseline. 4. back pain in setting of recent falls - t-spine/l-spine x-rays with old Lumbar compression Fx only. 5. acute blood loss anemia 2nd to retroperitoneal bleeding - H/H stable 6. a. fib on chronic anticoagulation - holding latter 2nd to #5. Rates controlled can likely resume AC on discharge 7. acute kidney injury in setting of CKD stage 3 - SALVADOR resolved, Cr continuing to improve to 1.5 yesterday. 8. large left-sided renal stone - urology consult appreciated. Multiple discussions held with urology attendings/ PA this week. At this time there is no plans for stent placement while hospitalized. 9. abnormal TSH with preserved Ft4 - would not Rx with synthroid at this time; repeat TFTs in 6 weeks as outpatient. 10. abnormal LFTs (ast/alt) - improved this hospitalization but still mildly high. No signs/symptoms of biliary tract disease. Could be from fatty liver. Is s/p cholecystectomy in the past. AST/ALT nearly normal today. 11. DVT proph - SCDs; chemical means contraindicated. 12. chronic systolic CHF - compensated. 13. T2DM - adequate control. 14. h/o TIA - noted. resume aspirin - maybe in about 1-2 weeks? may not be candidate for going back on eliquis in future. 15. protein calorie malnutrition - improved appetite. Added boost glucose control BID with meals. 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 SCDs for DVT proph. 17. b/l hip pain - resolved. 18. morbid obesity with BMI 41 - noted. 19. FEN - diet as tolerated, lytes stable including phos level. 20. +lyme's screen - I am unclear as to the significance of this in light of the above issues. While awaiting western blot placed on doxycycline 100mg BID. Day #3 today. She does not have meningitic signs to suggest INSTALLMENT DEALER lymes. nothing on exam otherwise to suggest chronic lymes. EKG with no AV block. await western blot. 21. diarrhea - resolved. 22. thiamine deficiency - B1 level returned today undetectable. Increase thiamine from BID to TID dosing (200 TID). This very well could have been contributing to mental status issues over the last 1-2 months at home. Deserves aggressive replenishment over the next few weeks. daughters updated at bedside PT, OT consultations appreciated dispo - SNF ([facility]) - possibly tomorrow after Caspofungin, however, there is influenza outbreak at [facility], which may delay discharge Continued [facility] stay due to: ambulation difficulties, multiple IV medications needed, other (encephalopathy) Discharge planning: [facility] facility
[2016-06-27 07:49] VITALS: BP 119/74; PULSE 57; TEMP 36.5; O2SAT 98
[2016-06-27] MEDS: RANITIDINE HCL 150 MG TAB PO SCH (07:51)
[2016-06-27] MEDS: MULTIVITAMIN TAB PO SCH (07:52)
[2016-06-27] MEDS: DOXYCYCLINE HYCLATE 100 MG CAP PO SCH ×2 (07:52→20:02)
[2016-06-27] MEDS: THIAMINE HCL 100 MG TAB PO SCH ×3 (07:52→20:02)
[2016-06-27] MEDS: BOOST GLUCOSE CONTROL PO SCH ×2 (07:52→16:48)
[2016-06-27] MEDS: CARVEDILOL 25 MG TAB PO SCH ×2 (07:52→20:01)
[2016-06-27] MEDS: CASPOFUNGIN INJ 50 MG in SODIUM CHLORIDE 0.9% 250ML 250 ML IV SCH (13:39)
--- NOTE | 2016-06-27 14:10 | Progress Note ---
Subjective Date of Service: Jun 27, 2016. Subjective Pt evaluation today including: conversation w/ patient, conversation w/ family (daughter Yolette), physical exam, review of inpatient medication list Pain: no pain PO Intake: adequate Voiding: no voiding problems completed last day of Caspofungin today plan for SNF with rehab tomorrow, d/w daughter in the room patient doing well overall, eating well, confusion resolved, ambulating independently Problem List Medical Problems: (1) Anemia Status: Acute (2) Creatinine elevation Status: Acute Review of Systems Constitutional: + fatigue, + weakness Neurologic: + memory loss All Other Systems: Reviewed and Negative Medications Current Inpatient Medications Medications (Trade) Dose Ordered Sig/Daquan Route Start Time Stop Time Status Last Admin Dose Admin Acetaminophen (Tylenol Tab) 650 mg Q4H PRN PO 06/19/16 16:00 07/19/16 15:59 06/21/16 15:41 650 MG Al Hydrox/Mg Hydrox/Simethicone (Maalox Max Susp) 15 ml Q4H PRN PO 06/19/16 16:00 07/19/16 15:59 Magnesium Hydroxide (Milk Of Magnesia Susp) 30 ml Q12H PRN PO 06/19/16 16:00 07/19/16 15:59 Ondansetron HCl (Zofran Inj) 4 mg Q6H PRN IV 06/19/16 16:00 07/19/16 15:59 06/27/16 02:58 4 MG Polyethylene (Miralax Powder Packet) 17 gm DAILY PRN PO 06/19/16 16:00 07/19/16 15:59 Carvedilol (Coreg Tab) 25 mg BID PO 06/19/16 21:00 07/19/16 20:59 06/27/16 07:52 25 MG Multivitamins (Multivitamin Tab) 1 tab DAILY PO 06/20/16 09:00 07/20/16 08:59 06/27/16 07:52 1 TAB Ranitidine HCl 150 mg 150 mg DAILY PO 06/20/16 09:00 07/20/16 08:59 06/27/16 07:51 150 MG Acetaminophen 100 ml @ 400 mls/hr Q8H PRN IV 06/20/16 17:30 07/20/16 17:29 06/20/16 18:03 400 MLS/HR Caspofungin/ Sodium Chloride (Cancidas Inj/ Nss 250ml) 260 ml @ 250 mls/hr Q24H IV 06/22/16 14:00 06/27/16 16:00 06/27/16 13:39 250 MLS/HR Miconazole Nitrate (Desenex Powder) 1 appln PRN PRN EXT 06/22/16 14:15 07/22/16 14:14 Lorazepam (Ativan Tab) 1 mg Q6H PRN PO 06/23/16 19:45 07/23/16 19:44 Doxycycline Hyclate (Vibramycin Cap) 100 mg BID PO 06/23/16 20:00 07/03/16 19:59 06/27/16 07:52 100 MG Thiamine HCl (Vitamin B-1 Tab) 200 mg TID PO 06/25/16 16:00 07/25/16 15:59 06/27/16 13:40 200 MG Enteral Nutritional Formula (Boost Glucose Control) 1 can BIDM PO 06/25/16 17:00 07/25/16 16:59 06/27/16 07:52 1 CAN Objective Vital Signs Date Time Temp Pulse Resp B/P Pulse Ox O2 Delivery O2 Flow Rate FiO2 06/27/16 08:30 Room Air 06/27/16 07:49 36.5 57 20 119/74 98 Room Air 06/27/16 00:20 Room Air 06/26/16 23:45 36.4 66 18 152/84 98 Room Air 06/26/16 21:37 68 138/76 06/26/16 16:06 36.6 60 16 122/77 99 Room Air 06/26/16 16:00 95 Room Air Physical Exam General Appearance: WD/WN, no apparent distress Neck: supple, no adenopathy, no JVD, trachea midline Respiratory/Chest: chest non-tender, lungs clear, normal breath sounds, no respiratory distress, no accessory muscle use Cardiovascular: regular rate, rhythm, no edema, no gallop, no JVD, no murmur Abdomen: normal bowel sounds, non tender, soft, no organomegaly Extremities: normal range of motion, non-tender, normal inspection, no pedal edema, no calf tenderness Neurologic/Psychiatric: beverage server 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 tested, no motor/sensory deficits, alert, normal mood/affect, oriented x 3 Skin: normal color, warm/dry, no rash Lymphatic: no adenopathy Laboratory Results Last 24 Hours Test 06/26/16 16:40 06/26/16 19:55 06/27/16 07:55 06/27/16 12:06 Bedside Glucose 114 mg/dl 134 mg/dl 124 mg/dl 113 mg/dl Assessment and Plan 75yo female with: 1. sepsis likely due to fungal UTI - resolved. 2. fungal UTI - day #7 caspofungin. Blood cx's negative for such. no further treatment, ID recommended only 7 days 3. encephalopathy - markedly improved over the last 5-7 days, seems to be completely resolved today Presumed to be metabolic from UTI as well as acute renal failure (resolved) Ammonia, b12, VBG, MRI brain - all negative/normal. B1 level undetectable - see below. Lymes + but doubt this is MOLD MAINTENANCE TECHNICIAN lymes. See below. Dr. Liriano saw patient a few days ago and feels there could be element of early dementia / mild cognitive impairment at baseline. 4. back pain in setting of recent falls - t-spine/l-spine x-rays with old Lumbar compression Fx only. 5. acute blood loss anemia 2nd to retroperitoneal bleeding - H/H stable 6. a. fib on chronic anticoagulation - holding latter 2nd to #5. Rates controlled can likely resume AC on discharge (Eliquis BID) 7. acute kidney injury in setting of CKD stage 3 - SALVADOR resolved, Cr continuing to improve to 1.5, making adequate urine 8. large left-sided renal stone - urology consult appreciated. Multiple discussions held with urology attendings/ PA this week. At this time there is no plans for stent placement while hospitalized. 9. abnormal TSH with preserved Ft4 - would not Rx with synthroid at this time; repeat TFTs in 6 weeks as outpatient. 10. abnormal LFTs (ast/alt) - improved this hospitalization but still mildly high. No signs/symptoms of biliary tract disease. Could be from fatty liver. Is s/p cholecystectomy in the past. AST/ALT nearly normal today. 11. DVT proph - SCDs; chemical means contraindicated. 12. chronic systolic CHF - compensated. 13. T2DM - adequate control. 14. h/o TIA - noted. resume aspirin - maybe in about 1-2 weeks? may not be candidate for going back on eliquis in future. 15. protein calorie malnutrition - improved appetite. Added boost glucose control BID with meals. 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 SCDs for DVT proph. 17. b/l hip pain - resolved. 18. morbid obesity with BMI 41 - noted. 19. FEN - diet as tolerated, lytes stable including phos level. 20. +lyme's screen - I am unclear as to the significance of this in light of the above issues. While awaiting western blot placed on doxycycline 100mg BID. Day #3 today. She does not have meningitic signs to suggest MOLD MAINTENANCE TECHNICIAN lymes. nothing on exam otherwise to suggest chronic lymes. EKG with no AV block. await western blot. 21. diarrhea - resolved. 22. thiamine deficiency - B1 level returned today undetectable. Increase thiamine from BID to TID dosing (200 TID). This very well could have been contributing to mental status issues over the last 1-2 months at home. Deserves aggressive replenishment over the next few weeks. daughter updated at bedside PT, OT consultations appreciated dispo - [facility] tomorrow Continued [facility] stay due to: ambulation difficulties, multiple IV medications needed, other (encephalopathy) [facility]
[2016-06-27 16:49] VITALS: BP 127/79; PULSE 71; TEMP 36.7; O2SAT 97
[2016-06-28 00:31] VITALS: BP 119/73; PULSE 61; TEMP 36.4; O2SAT 96
[2016-06-28 07:30] VITALS: O2SAT 94
[2016-06-28] MEDS: RANITIDINE HCL 150 MG TAB PO SCH (07:57)
[2016-06-28] MEDS: DOXYCYCLINE HYCLATE 100 MG CAP PO SCH (07:57)
[2016-06-28] MEDS: THIAMINE HCL 100 MG TAB PO SCH (07:57)
[2016-06-28] MEDS: MULTIVITAMIN TAB PO SCH (07:58)
[2016-06-28] MEDS: BOOST GLUCOSE CONTROL PO SCH (07:58)
[2016-06-28] MEDS: CARVEDILOL 25 MG TAB PO SCH (07:58)
[2016-06-28 08:16] VITALS: BP 138/81; PULSE 52; TEMP 36.1; O2SAT 99
[2016-06-28] MEDS ORDERED: THM100 PO (09:06)
--- NOTE | 2016-06-28 09:10 | Discharge Instructions ---
Discharge Instructions Admission Reason for Admission: Altered Mental Status Discharge Discharge Diagnosis / Problem: Altered mental status secondary to fungal UTI and acute renal failure Discharge Goals Goal(s): Improve function, Increase independence Activity Recommendations Activity Level: Ambulates in room Therapies: Physical Therapy, Occupational Therapy Lifting Limitations: none Exercise/Sports Limitations: as tolerated Shower/Bathe: no limitations . Additional Information Patient informed of condition: Yes Advance Directives: Yes DNR: Yes Level of Care: Acute Rehab Communicable Disease: No Prognosis: Improving Oxygen at (LPM): no Kaur Catheter: No Instructions / Follow-Up Instructions / Follow-Up Medications: - THIAMINE: only new medication, found to be deficient, recommend aggressive replacement for the next month with 200mg TID, after one month can decrease to 200mg daily - ELIQUIS: stopped indefinitely, discussed with cardiology, she is a fall risk and at high risk of bleeding FOLLOW UP - physician at the [facility] this week - PCP one week after discharge from acute rehab In summary, patient had altered mental status that was attributed to a fungal UTI that was treated with 7 days of Caspofungin IV. Also, she had acute renal failure that quickly improved with IV fluids and holding nephrotoxic agents. At baseline, she continues to have some mild confusion but she is pleasant and cooperative, ambulated independently but she is weaker than baseline and would benefit from a short rehabilitation stay. See discharge summary for more details Current Hospital Diet Patient's current hospital diet: AHA Diet (Heart Healthy), Diabetes Type 2 Diet Discharge Diet Recommended Diet: AHA Diet (Heart Healthy), Diabetes Type 2 Diet Procedures Procedures Performed: no Pending Studies Studies pending at discharge: no Physician Orders On Transfer POLST Discussion: Not Applicable Medical Emergencies . Who to Call and When: Medical Emergencies: If at any time you feel your situation is an emergency, please call 911 immediately. . Non-Emergent Contact Non-Emergency issues call your: Primary Care Provider Call Non-Emergent contact if: you have a fever, your pain is concerning you, you have any medication questions . . "Provider Documentation" section prepared by Alexey Elias. Core Measure Problem Core Measures: None [place] Drug Monitoring Program Search Results: no issues identified
[2016-06-28 10:14] VITALS: BP 138/81; PULSE 52; TEMP 36.1; O2SAT 99
[2016-06-28] MEDS ORDERED: ATV1 PO (12:12)
[2016-06-28] MEDS ORDERED: ULT/50 PO (12:14)
--- NOTE | 2016-06-28 15:30 | Discharge Summary ---
Discharge Summary Admission Date: Jun 19, 2016 at 16:06 Discharge Date: Jun 28, 2016 Discharge Disposition: [facility] facility (with rehab) Principal Diagnosis: Acute encephalopathy Problems/Secondary Diagnoses: Fungal UTI Acute renal failure Atrial fibrillation Kidney stones Immunizations: Have You Had Influenza Vaccine: Yes Influenza Vaccine Date: Mar 02, 2013 History of Tetanus Vaccine?: Yes Tetanus Immunization Date: May 02, 2011 History of Pneumococcal: Yes Pneumococcal Date: May 02, 2011 History of Hepatitis B Vaccine: No Procedures: none Consultations: Neurology Urology Medication Reconciliation New Medications: Lorazepam (Lorazepam) 1 Mg Tab 1 MG PO Q6H PRN for Anxiety or sleep , #90 TAB 0 Refills Thiamine HCl (Vitamin B-1) 100 Mg Tab 200 MG PO TID, #180 TAB 3 Refills 200mg TID x 1 month then decrease to 200mg daily and continue Changed Medications: Tramadol Hcl (Ultram) 50 Mg Tab 50 MG PO BID PRN for Pain, #60 TAB 0 Refills (Changed from: Refills: ; TAKES WITH ACTEAMINOPHEN) TAKE WITH TYLENOL Continued Medications: Acetaminophen (Acetaminophen) 500 Mg Cap 500 MG PO BID PRN for Pain TAKE WITH TRAMADOL Aspirin Enteric Coated (Ecotrin Or Generic) 81 Mg Tab 81 MG PO DAILY, TAB Atorvastatin (Lipitor) 40 Mg Tab 40 MG PO DAILY, TAB Carvedilol (Coreg) 25 Mg Tab 25 MG PO BID, TAB Lorazepam (Ativan) 1 Mg Tab 1 MG PO QID PRN, TAB Multiple Vitamin (Multivitamin) 1 Tab Tab 1 TAB PO DAILY, TAB Ranitidine Hcl (Zantac) 150 Mg Tab 150 MG PO DAILY, TAB Triazolam (Triazolam) 0.25 Mg Tab 0.25 MG PO HS Discontinued Medications: Apixaban (Eliquis) 2.5 Mg Tab 2.5 MG PO BID Ceftriaxone Sodium (Rocephin) 1 Gm Inj 1 GM IM DAILY for 7 Days Dmekdxsx-Vamjvrjaq-Sf (Otic) (Antibiotic Ear) 1 Magi Magi 1 DROP OT UD Discharge Exam Patient feeling well today, no issues over night. Pain controlled, eating well , ambulating independently around her room. Review of Systems: Constitutional: No chills, No fatigue, No fever, No problem reported, No sweats, No weakness, No weight loss Eyes: No diplopia, No discharge, No eye pain, No problem reported, No redness, No worsening of vision ENT: No dental problems, No hearing loss, No nasal symptoms, No problem reported, No sore throat, No tinnitus, No trouble swallowing, No unusual epistaxis Respiratory: No cough, No dyspnea at rest, No dyspnea on exertion, No hemoptysis, No problem reported, No shortness of breath, No sputum, No wheezing Cardiovascular: No PND, No chest pain, No claudication, No edema, No orthopnea, No palpitations, No problem reported Abdomen: No GI bleeding, No constipation, No diarrhea, No nausea, No pain, No problem reported, No vomiting Musculoskeletal: No calf pain, No joint pain, No muscle pain, No problem reported, No swelling Genitourinary - Female: No dysuria, No urinary frequency, No urinary incontinence, No urinary urgency Neurologic: + memory loss, + weakness, No balance problems, No numbness/ tingling, No paralysis, No vertigo Psychiatric: + anxiety, No anhedonism, No depression symptoms, No insomnia, No problem reported, No substance abuse Endocrine: No excessive thirst, No excessive urination, No fatigue, No problem reported Hematologic / Lymphatic: No abnormal bleeding/bruising, No clotting problems , No night sweats, No problem reported, No swollen lymph nodes Integumentary: No bleeding, No color change, No itch, No new/changing skin lesions, No problem reported, No rash Physical Exam: General Appearance: WD/WN, no apparent distress Eyes: normal inspection, EOMI, sclerae normal ENT: normal ENT inspection, hearing grossly normal, pharynx normal Neck: supple, no adenopathy, no JVD, trachea midline Respiratory/Chest: chest non-tender, lungs clear, normal breath sounds, no respiratory distress, no accessory muscle use Cardiovascular: regular rate, rhythm, no edema, no gallop, no JVD, no murmur , normal peripheral pulses Abdomen / GI: normal bowel sounds, non tender, soft, no organomegaly Extremities: normal inspection, no calf tenderness, normal capillary refill , no pedal edema, normal range of motion Neurologic/Psychiatric: enroute controller 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 tested, no motor/sensory deficits , alert, normal mood/affect, normal reflexes, oriented x 3, + pertinent finding (mild memory deficits) Skin: normal color, warm/dry, no rash Lymphatic: no adenopathy Hospital Course 75yo female with: 1. sepsis likely due to fungal UTI - resolved. 2. fungal UTI - day #7 caspofungin. Blood cx's negative for such. no further treatment, ID recommended only 7 days 3. encephalopathy - markedly improved over the last 5-7 days, seems to be completely resolved for 2-3 days prior to discharge Presumed to be metabolic from UTI as well as acute renal failure (resolved) Ammonia, b12, VBG, MRI brain - all negative/normal. B1 level undetectable - see below. Lymes + but doubt this is INSULATION FOREMAN lymes. See below. Dr. Liriano saw patient a few days ago and feels there could be element of early dementia / mild cognitive impairment at baseline. 4. back pain in setting of recent falls - t-spine/l-spine x-rays with old Lumbar compression Fx only. 5. acute blood loss anemia 2nd to retroperitoneal bleeding - H/H stable 6. a. fib on chronic anticoagulation - holding latter 2nd to #5. Rates controlled discussed with Dr. Lund, will discontinue Eliquis and any other anticoagulation at this time due to falls and risk of bleeding 7. acute kidney injury in setting of CKD stage 3 - SALVADOR resolved, Cr continuing to improve to 1.5, making adequate urine 8. large left-sided renal stone - urology consult appreciated. Multiple discussions held with urology attendings/ PA this week. At this time there is no plans for stent placement while hospitalized. 9. abnormal TSH with preserved Ft4 - would not Rx with synthroid at this time; repeat TFTs in 6 weeks as outpatient. 10. abnormal LFTs (ast/alt) - improved this hospitalization but still mildly high. No signs/symptoms of biliary tract disease. Could be from fatty liver. Is s/p cholecystectomy in the past. AST/ALT nearly normal when last checked 11. DVT proph - SCDs; chemical means contraindicated. 12. chronic systolic CHF - compensated. 13. T2DM - adequate control. 14. h/o TIA - noted. resume aspirin 15. protein calorie malnutrition - improved appetite. Added boost glucose control BID with meals. 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 SCDs for DVT proph. 17. b/l hip pain - resolved. 18. morbid obesity with BMI 41 - noted. 19. FEN - diet as tolerated, lytes stable including phos level. 20. +lyme's screen - I am unclear as to the significance of this in light of the above issues. While awaiting western blot placed on doxycycline 100mg BID. Received 7 days She does not have meningitic signs to suggest INSULATION FOREMAN lymes. nothing on exam otherwise to suggest chronic lymes. EKG with no AV block. will not continue Doxycycline on discharge, certainly if Western Blot comes back positive could resume 21. diarrhea - resolved. 22. thiamine deficiency - B1 level returned today undetectable. Increase thiamine from BID to TID dosing (200 TID). This very well could have been contributing to mental status issues over the last 1-2 months at home. Deserves aggressive replenishment over the next few weeks plan for TID dosing for 4 weeks then 200mg daily daughter updated at bedside PT, OT consultations appreciated dispo - [facility] today Total Time Spent: Greater than 30 minutes This includes examination of the patient, discharge planning, medication reconciliation, and communication with other providers. Discharge Instructions Please refer to the electronic Patient Visit Report (Discharge Instructions) for additional information. Follow-Up Physician at [facility] Additional Copies To Matt at [facility]
[2016-07-01 11:06] LABS: 18KDIGG BAND NONREACTIVE (NONREACTIVE); 23KDIGG BAND NONREACTIVE (NONREACTIVE); 23KDIGM BAND NONREACTIVE (NONREACTIVE); 28KDIGG BAND NONREACTIVE (NONREACTIVE); 30KDIGG BAND NONREACTIVE (NONREACTIVE); 39KDIGG BAND NONREACTIVE (NONREACTIVE); 39KDIGM BAND NONREACTIVE (NONREACTIVE); 41KDIGG BAND NONREACTIVE (NONREACTIVE); 41KDIGM BAND NONREACTIVE (NONREACTIVE); 45KDIGG BAND NONREACTIVE (NONREACTIVE); 58KDIGG BAND NONREACTIVE (NONREACTIVE); 66KDIGG BAND NONREACTIVE (NONREACTIVE); 93KDIGG BAND NONREACTIVE (NONREACTIVE)
== END 2016-06-28 12:30 | DRG 871 ==
LOC: ENRESERVDT → ENRESERVTM → EDBD 13:05 → C.ED 13:06 → C.2E 16:06 → C.4E 06-23 15:34
PROVIDERS: ADMIT Hospitalist; ATTEND Internal Medicine
PROC: 4A00X4Z Measurement of Central Nervous Electrical Activity, External Approach (ICD-10-PCS; principal; 2016-06-23)
DX: A41.9 Sepsis, unspecified organism (principal); G93.41 Metabolic encephalopathy; N17.9 Acute kidney failure, unspecified; I48.1 Persistent atrial fibrillation; N39.0 Urinary tract infection, site not specified; Z68.41 Body mass index [BMI] 40.0-44.9, adult; I42.9 Cardiomyopathy, unspecified; I50.22 Chronic systolic (congestive) heart failure; D62 Acute posthemorrhagic anemia; E46 Unspecified protein-calorie malnutrition; N20.0 Calculus of kidney; Z86.718 Personal history of other venous thrombosis and embolism; Z79.82 Long term (current) use of aspirin; N18.3 Chronic kidney disease, stage 3 (moderate); R58 Hemorrhage, not elsewhere classified; Z86.711 Personal history of pulmonary embolism; M25.552 Pain in left hip; M25.551 Pain in right hip; M62.81 Muscle weakness (generalized); E66.01 Morbid (severe) obesity due to excess calories; D72.829 Elevated white blood cell count, unspecified; Z66 Do not resuscitate; Z86.73 Personal history of transient ischemic attack (TIA), and cerebral infarction without residual deficits; I25.10 Atherosclerotic heart disease of native coronary artery without angina pectoris; Z96.653 Presence of artificial knee joint, bilateral; E78.00 Pure hypercholesterolemia, unspecified; F03.90 Unspecified dementia, unspecified severity, without behavioral disturbance, psychotic disturbance, mood disturbance, and anxiety; E11.22 Type 2 diabetes mellitus with diabetic chronic kidney disease; M54.9 Dorsalgia, unspecified

== ENCOUNTER → 2016-07-06 | Outpatient (CLI) | payer OTHER ==
[~2016-07-06] MED LIST changes: +ACET500C6 PO; +ATV1 PO; +DIPH-416 PO; +DOCU-94 PO; +ELQ25 PO; +FURO-85 PO; -MELO15TA3 PO; -METF500T PO; +MULT-55 PO; -NEOM1SOL8 OT; +ONDA4TAB10 SL; -ONDA4TAB46 PO; -OXYC-643 PO; +POLY335019 PO; +SERT-234 PO; +SERT1TAB92 PO; +THM100 PO; +TRIA0.2580 PO; +ULT/50 PO; -WARF3TAB PO; -WARF4TAB8 PO; -ZOLP5TAB PO
[2016-07-06 09:41] LABS: BLOOD UREA NITROGEN 26 mg/dl (7-18); BUN/CREATININE RATIO 14.4 (10-20); CALCIUM 8.8 mg/dl (8.5-10.1); CARBON DIOXIDE 24 mmol/L (21-32); CHLORIDE 109 mmol/L (98-107); GLUCOSE 133 mg/dl (70-99); POTASSIUM 4.4 mmol/L (3.5-5.1); SODIUM 142 mmol/L (136-145)
== END ==
LOC: C.LABVPSUA 08:43
PROVIDERS: ATTEND Internal Medicine Critical Care Medicine
DX: N18.9 Chronic kidney disease, unspecified (principal)

== ENCOUNTER 2016-07-16 09:11 | Emergency (ER) | payer OTHER ==
[~2016-07-16] VITALS: Ht 170.2 cm; Wt 121.0 kg
[~2016-07-16 09:11] MED LIST changes: -DIPH-416 PO; -DOCU-94 PO; -ELQ25 PO; -FURO-85 PO; -MULT-55 PO; -ONDA4TAB10 SL; -POLY335019 PO; -SERT-234 PO; -SERT1TAB92 PO
[2016-07-16 09:20] VITALS: TEMP 37.3; Ht 170.2 cm; Wt 121.0 kg
[2016-07-16] MEDS ORDERED: TRAMADOL HCL 50 MG TAB PO STA (09:43)
[2016-07-16] MEDS ORDERED: ACETAMINOPHEN 500 MG TAB PO STA (09:43)
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
[2016-07-16] MEDS ORDERED: DOCU-94 PO (10:48)
[2016-07-16] MEDS ORDERED: MULT-55 PO (10:48)
[2016-07-16] MEDS ORDERED: FURO-85 PO (10:48)
--- NOTE | 2016-07-16 10:48 | DIAGNOSTIC IMAGING REPORT ---
LEFT RIBS UNILATERAL WITH PA CHEST CLINICAL HISTORY: fall, left pain. Left-sided rib pain. COMPARISON STUDY: Chest 06/19/2016. FINDINGS: Small left pleural effusion persist. The heart remains mildly enlarged no pneumothorax. No acute rib fractures. Mild central pulmonary vascular congestion which has improved. Linear infrahilar density favors subsegmental atelectasis. IMPRESSION: 1. No acute rib fractures. No pneumothorax. 2. Small left pleural effusion, unchanged. Electronically signed by: Markus Escamilla M.D. 07/16/2016 10:47 AM Dictated Date/Time: 07/16/2016 10:45 AM
[2016-07-16 14:35] VITALS: BP 110/65; PULSE 78; O2SAT 97
== END 2016-07-16 14:35 | disposition home or self-care (01) ==
LOC: EDBD 09:11 → C.EDB 09:15
DX: S20.212A Contusion of left front wall of thorax, initial encounter (principal); W19.XXXA Unspecified fall, initial encounter; I48.91 Unspecified atrial fibrillation; N18.9 Chronic kidney disease, unspecified; E11.9 Type 2 diabetes mellitus without complications; E78.5 Hyperlipidemia, unspecified; Z86.73 Personal history of transient ischemic attack (TIA), and cerebral infarction without residual deficits

== ENCOUNTER 2016-08-11 15:18 | Inpatient (IN) | payer OTHER ==
[~2016-08-11] VITALS: Ht 172.7 cm; Wt 107.0 kg
[~2016-08-11 15:18] MED LIST changes: -ATV1 PO; +DOCU-94 PO; +FURO-85 PO; +MULT-55 PO
--- NOTE | 2016-08-11 15:52 | DIAGNOSTIC IMAGING REPORT ---
CHEST ONE VIEW PORTABLE HISTORY: Altered mental status. COMPARISON: Chest 07/16/2016. FINDINGS: No pneumothorax. Moderate left pleural effusion has slightly increased in size. Linear densities within the left lung and right medial lung base favor subsegmental atelectasis. The cardiac silhouette remains mildly enlarged. IMPRESSION: 1. Slight increase in size in the moderate left pleural effusion. 2. Right medial lung base and left lung linear densities are nonspecific but favor subsegmental atelectasis. 3. Stable mild cardiomegaly. Electronically signed by: Markus Escamilla M.D. 08/11/2016 3:51 PM Dictated Date/Time: 08/11/2016 3:49 PM
[2016-08-11 16:19] LABS: BASO % 0.1 %; BASO ABS # 0.02 K/uL (0-0.2); COMPLETE YES; EOS % 0.1 %; IG% 0.3 %; LYMPH ABS # 1.71 K/uL (1.2-3.4); MEAN CELL VOLUME 88.6 fL (80-100); MEAN CORPUSCULAR HEMOGLOBIN 28.6 pg (25-34); MEAN CORPUSCULAR HGB CONC 32.3 g/dl (32-36); MEAN PLATELET VOLUME 8.8 fL (7.4-10.4); MONO % 8.3 %; NEUT % 81.2 %; PLATELET COUNT 435 K/uL (130-400); WHITE BLOOD COUNT 17.03 K/uL (4.8-10.8)
[2016-08-11 16:34] LABS: INR 1.2 (0.9-1.1); PARTIAL THROMBOPLASTIN RATIO 1.1
[2016-08-11] MEDS ORDERED: SERT-234 PO (16:38)
[2016-08-11] MEDS ORDERED: ONDA4TAB10 SL (16:38)
[2016-08-11] MEDS ORDERED: POLY335019 PO (16:38)
[2016-08-11] MEDS ORDERED: DIPH-416 PO (16:38)
[2016-08-11 16:41] LABS: ALT/SGPT 15 U/L (12-78); BLOOD UREA NITROGEN 40 mg/dl (7-18); BUN/CREATININE RATIO 19.8 (10-20); CARBON DIOXIDE 26 mmol/L (21-32); CHLORIDE 97 mmol/L (98-107); GLUCOSE 145 mg/dl (70-99); POTASSIUM 3.9 mmol/L (3.5-5.1); SODIUM 134 mmol/L (136-145)
[2016-08-11 16:46] LABS: ALKALINE PHOSPHATASE 96 U/L (45-117); AST/SGOT 21 U/L (15-37)
[2016-08-11 16:48] LABS: URINE APPEARANCE TURBID (CLEAR); URINE BILIRUBIN NEG (NEG); URINE COLOR DK YELLOW; URINE NITRITE NEG (NEG); URINE SPECIFIC GRAVITY 1.017 (1.000-1.030); UROBILINOGEN NEG (NEG)
[2016-08-11 16:49] LABS: MANUAL MICROSCOPIC REQUIRED? NO; REVIEW REQ? NO
--- NOTE | 2016-08-11 16:56 | DIAGNOSTIC IMAGING REPORT ---
HEAD CT NONCONTRAST CT DOSE: 638.56 mGycm HISTORY: Mental status change SARMIENTO/ams eval for bleed TECHNIQUE: Multiaxial CT images of the head were performed without the use of intravenous contrast. Comparison: 06/19/2016 Findings: The paranasal sinuses and mastoid air cells are clear. Mild chronic small vessel change of aging. No acute intracranial abnormality. No midline shift. No evidence for acute intracranial hemorrhage. Impression: Age-related change. Otherwise negative study. Electronically signed by: Georges Conway M.D. 08/11/2016 4:54 PM Dictated Date/Time: 08/11/2016 4:54 PM
[2016-08-11] MEDS ORDERED: PIPERACILLIN/TAZOBACTAM 4.5 GM/100ML D5W IV STA (17:18)
[2016-08-11] MEDS ORDERED: ONDANSETRON INJ 2 MG/ML 2 ML VIAL IV PRN (19:00)
[2016-08-11] MEDS ORDERED: DIPHENOXYLATE/ATROPINE 2.5/0.025MG TAB PO PRN (19:00)
--- NOTE | 2016-08-11 19:07 | EMERGENCY ROOM VISIT NOTE ---
History Report prepared by Kirill: Enoc Carney Under the Supervision of: Dr. Curt Lopez M.D. First contact with patient: 15:23 Chief Complaint: CONFUSION Stated Complaint: WEAKNESS, CONFUSION History of Present Illness The patient is a 76 year old female who presents to the Emergency Room with complaints of increased confusion that started today. The patient also complains of generalized body aches and a headache. She cannot pinpoint when the headache started. The patient came to the ED from [facility] , where is was noted that today she had increased confusion and increased generalized weakness. Her bilateral leg weakness has been an ongoing issue for which she attends physical therapy. Per nursing staff, the patient has reportedly been hallucinating. She denies chest pain, shortness of breath, abdominal pain, or burning with urination. The patient was in the ED last month and diagnosed with a rib contusion status-post fall. She still has some pain and bruising over the ribs from that fall. The patient has a history of UTIs, per nursing staff. The patient has not had any recent fevers or vomiting. Source of History: patient, nursing staff Onset: today Position: other (global) Quality: other (confused) Timing: other (increased) Associated Symptoms: + headache, + weakness, No SOB, No abdominal pain, No chest pain, No fevers, No urinary symptoms, No vomiting Note: Left rib pain Review of Systems See HPI for pertinent positives & negatives. A total of 10 systems reviewed and were otherwise negative. Past Medical & Surgical Medical Problems: (1) Altered mental status (2) Atrial fibrillation (3) Cardiomyopathy (4) Catheter-associated urinary tract infection (5) CKD (chronic kidney disease) (6) DM w/o complication type II (7) DVT (deep venous thrombosis) (8) Dyslipidemia (9) Lymphedema (10) Obesity (11) PE (pulmonary embolism) (12) TIA (transient ischemic attack) (13) UTI (urinary tract infection) Surgical Problems: (1) H/O cardiac catheterization (2) Hip joint replacement status (3) S/P TKR (total knee replacement) Family History Patient reports no known family medical history. Social History Smoking Status: Never Smoker Alcohol Use: occasionally Drug Use: none Marital Status: Housing Status: lives alone Occupation Status: retired Current/Historical Medications Scheduled Aspirin Enteric Coated (Ecotrin Or Generic), 81 MG PO DAILY Atorvastatin (Lipitor), 40 MG PO DAILY Carvedilol (Coreg), 25 MG PO BID Furosemide (Lasix), 20 MG PO DAILY Lorazepam (Ativan), 1 MG PO QID PRN Multiple Vitamin (Multivitamin), 1 TAB PO DAILY Multiple Vitamins W/ Minerals (Vision Vitamins), 1 TAB PO DAILY Ondasetron Odt (Zofran Odt), 4 MG SL Q6H Polyethylene Glycol 3350 (Miralax), 17 GM PO DAILY Ranitidine Hcl (Zantac), 150 MG PO DAILY Sertraline (Zoloft), 100 MG PO DAILY Triazolam (Triazolam), 0.25 MG PO HS Scheduled PRN Acetaminophen (Acetaminophen), 500 MG PO BID PRN for Pain Diphenoxylate/Atropine (Lomotil), 1 TAB PO Q6 PRN for Diarrhea Docusate Sodium (Colace), 1 CAP PO DAILY PRN for Constipation Tramadol Hcl (Ultram), 50 MG PO BID PRN for Pain Allergies Coded Allergies: Morphine (Unverified Allergy, Intermediate, VOMITING, 08/11/16) Adhesives (Verified Allergy, Unknown, RASH, 08/11/16) Digoxin (Unverified Adverse Reaction, Severe, DIGTOXIC, 08/11/16) Physical Exam Vital Signs Date Time Temp Pulse Resp B/P Pulse Ox O2 Delivery O2 Flow Rate FiO2 08/11/16 18:27 82 20 109/66 93 Room Air 08/11/16 17:07 84 21 125/68 93 Room Air 08/11/16 16:26 85 08/11/16 15:28 36.7 84 17 121/76 93 Room Air Physical Exam Constitutional: Vital signs reviewed. Eyes: Pupils are equal round reactive to light. Conjunctiva are noninjected. ENT: Pharynx is clear without erythema or exudate. Mucous membranes are moist. Neck supple without meningeal signs. Respiratory: Clear to auscultation bilaterally. Breath sounds are equal bilaterally. Cardiovascular: Regular rate and rhythm. No rubs or gallops. GI: Soft, nondistended and nontender. Bowel sounds are present. Musculoskeletal: Bilateral chronic lymphedema. No lower extremity tenderness. Integumentary: No cyanosis. Neurological: The patient is awake and alert. Cranial nerves II-XII are intact. Motor is 5 out of 5 all extremities. Sensation is intact to light touch all extremities. Normal speech. No pronator drift. Psychiatric: Normal affect. Medical Decision & Procedures ER Provider Diagnostic Interpretation: Radiology results as stated below per my review and the radiologist's interpretation: CHEST ONE VIEW PORTABLE HISTORY: Altered mental status. COMPARISON: Chest 07/16/2016. FINDINGS: No pneumothorax. Moderate left pleural effusion has slightly increased in size. Linear densities within the left lung and right medial lung base favor subsegmental atelectasis. The cardiac silhouette remains mildly enlarged. IMPRESSION: 1. Slight increase in size in the moderate left pleural effusion. 2. Right medial lung base and left lung linear densities are nonspecific but favor subsegmental atelectasis. 3. Stable mild cardiomegaly. Electronically signed by: Markus Escamilla M.D. 08/11/2016 3:51 PM Dictated Date/Time: 08/11/2016 3:[address] CT DOSE: 638.56 mGycm HISTORY: Mental status change SARMIENTO/ams eval for bleed TECHNIQUE: Multiaxial CT images of the head were performed without the use of intravenous contrast. Comparison: 06/19/2016 Findings: The paranasal sinuses and mastoid air cells are clear. Mild chronic small vessel change of aging. No acute intracranial abnormality. No midline shift. No evidence for acute intracranial hemorrhage. Impression: Age-related change. Otherwise negative study. Electronically signed by: Georges Conway M.D. 08/11/2016 4:54 PM Dictated Date/Time: 08/11/2016 4:54 PM Laboratory Results 08/11/16 16:04 Red Blood Count 3.50, Mean Corpuscular Volume 88.6, Mean Corpuscular Hemoglobin 28.6, Mean Corpuscular Hemoglobin Concent 32.3, Mean Platelet Volume 8.8, Neutrophils (%) (Auto) 81.2, Lymphocytes (%) (Auto) 10.0, Monocytes (%) (Auto) 8.3, Eosinophils (%) (Auto) 0.1, Basophils (%) (Auto) 0.1, Neutrophils # (Auto) 13.81, Lymphocytes # (Auto) 1.71, Monocytes # (Auto) 1.42, Eosinophils # (Auto) 0.02, Basophils # (Auto) 0.02 08/11/16 16:04 Test 08/11/16 16:04 08/11/16 16:30 White Blood Count 17.03 K/uL (4.8-10.8) Red Blood Count 3.50 M/uL (4.2-5.4) Hemoglobin 10.0 g/dL (12.0-16.0) Hematocrit 31.0 % (37-47) Mean Corpuscular Volume 88.6 fL (80-100) Mean Corpuscular Hemoglobin 28.6 pg (25-34) Mean Corpuscular Hemoglobin Concent 32.3 g/dl (32-36) Platelet Count 435 K/uL (130-400) Mean Platelet Volume 8.8 fL (7.4-10.4) Neutrophils (%) (Auto) 81.2 % Lymphocytes (%) (Auto) 10.0 % Monocytes (%) (Auto) 8.3 % Eosinophils (%) (Auto) 0.1 % Basophils (%) (Auto) 0.1 % Neutrophils # (Auto) 13.81 K/uL (1.4-6.5) Lymphocytes # (Auto) 1.71 K/uL (1.2-3.4) Monocytes # (Auto) 1.42 K/uL (0.11-0.59) Eosinophils # (Auto) 0.02 K/uL (0-0.5) Basophils # (Auto) 0.02 K/uL (0-0.2) RDW Standard Deviation 55.6 fL (36.4-46.3) RDW Coefficient of Variation 17.0 % (11.5-14.5) Immature Granulocyte % (Auto) 0.3 % Immature Granulocyte # (Auto) 0.05 K/uL (0.00-0.02) Prothrombin Time 13.0 SECONDS (9.0-12.0) Prothromb Time International Ratio 1.2 (0.9-1.1) Activated Partial Thromboplast Time 28.0 SECONDS (21.0-31.0) Partial Thromboplastin Ratio 1.1 Anion Gap 11.0 mmol/L (3-11) Est Creatinine Clear Calc Drug Dose 30.3 ml/min Estimated GFR () 27.0 Estimated GFR (Non- 23.3 BUN/Creatinine Ratio 19.8 (10-20) Calcium Level 9.0 mg/dl (8.5-10.1) Total Bilirubin 0.6 mg/dl (0.2-1) Direct Bilirubin 0.3 mg/dl (0-0.2) Aspartate Amino Transf (AST/SGOT) 21 U/L (15-37) Alanine Aminotransferase (ALT/SGPT) 15 U/L (12-78) Alkaline Phosphatase 96 U/L (45-117) Troponin I < 0.015 ng/ml (0-0.045) Total Protein 7.0 gm/dl (6.4-8.2) Albumin 2.1 gm/dl (3.4-5.0) Urine Color DK YELLOW Urine Appearance TURBID (CLEAR) Urine pH 5.0 (4.5-7.5) Urine Specific [place] 1.017 (1.000-1.030) Urine Protein 1+ (NEG) Urine Glucose (UA) NEG (NEG) Urine Ketones NEG (NEG) Urine Occult Blood TRACE (NEG) Urine Nitrite NEG (NEG) Urine Bilirubin NEG (NEG) Urine Urobilinogen NEG (NEG) Urine Leukocyte Esterase LARGE (NEG) Urine WBC (Auto) >30 /hpf (0-5) Urine RBC (Auto) 5-10 /hpf (0-4) Urine Hyaline Casts (Auto) 1-5 /lpf (0-5) Urine Epithelial Cells (Auto) 10-20 /lpf (0-5) Urine Bacteria (Auto) 4+ (NEG) Laboratory results as reviewed by me. Medications Administered Medications (Trade) Dose Ordered Sig/Daquan Route Start Time Stop Time Status Last Admin Dose Admin Piperacillin Sod/ Tazobactam Sod (Zosyn Iv) 4.5 gm NOW STAT IV 08/11/16 17:18 08/11/16 17:19 DC 08/11/16 18:27 4.5 GM ECG Indication: altered mental status Rate (beats per minute): 87 Rhythm: other (narrow complex rhythm, low voltage QRS, no ST elevation) Findings: no ectopy ED Course 152: The patient was evaluated in room C4. A complete history and physical exam was performed. 1715: Spoke with her and her daughter, who continued to hallucinate in the room. The daughter says last time this happened with a UTI the patient ended up staying in the hospital for two weeks for sepsis. I recommended IV antibiotics. 1718: Zosyn 4.5 gm IV. 1720: [facility]iscuss[facility] the [facility] The patient will be evaluated. Medical Decision this is a 76-year-old female who presents with generalized weakness and change in mental status. Differential diagnosis includes intracranial hemorrhage, intracranial mass, CVA, metabolic derangement, infection, UTI, pneumonia. I did perform a limited focused review of portions of the patient's old chart on the electronic medical record. The patient was here on July 16 for rib pain after a fall. She was diagnosed with contusion of rib and discharged with Tramadol. I did evaluate the patient as noted above. I did obtain history from the patient as well as the nursing staff. IV access was established. The patient was placed on a continuous director of cardiac cath lab. I did order and personally review the patient's 12-lead EKG and chest x-ray as described above. I did order and review the patient's blood work as noted in the electronic medical record. Her white blood cell count is elevated. I did order a CT of the head. I did review the images myself as well as the radiology report as described above. Urinalysis does show signs of infection. Blood cultures were sent. Lactic acid was negative. I did reassess the patient. I did talk to her daughter stated that the last time she had similar symptoms she develop sepsis and ended up in the hospital for 2 weeks. I did feel that it was prudent to therefore hospitalized patient's for IV antibiotics given she has had mental status change with a UTI. I did treat her with Zosyn IV. I did discuss the case with the hospitalist and bilingual case manager. Consults Time Called: [phone] Consulting Physician: [facility]. [facility] Returned Call: [phone]: Discussed the case with Dr. [facility]ino[facility] The patient will be evaluated. Impression Primary Impression: Altered mental status Additional Impressions: Visual hallucination UTI (urinary tract infection) Scribe Attestation The scribe's documentation has been prepared under my direct and personally reviewed by me in its entirety. I confirm that the note above accurately reflects all work, treatment, procedures, and medical decision making performed by me. Departure Information Dispostion Being Evaluated By Hospitalist Referrals Ray Pierson M.D. (PCP) Patient Instructions My [facility] Problem Qualifiers Primary Impression: Altered mental status Altered mental status type: unspecified Qualified Codes: R41.82 - Altered mental status, unspecified Additional Impressions: UTI (urinary tract infection) Urinary tract infection type: site unspecified
--- NOTE | 2016-08-11 20:32 | History and Physical ---
History & Physical Date & Time of Service: Aug 11, 2016 at 20:17 Chief Complaint: Altered Mental Status, Uti Primary Care Physician: Ray Pierson M.D. History of Present Illness Source: patient, family Pt is a 76 yo female who presents to the ER from [facility] with complaints of increased confusion that started today Per family, pt has been having visual hallucinations of dogs and other people in the room sporadically. Pt reports weakness but denies any fevers, chills, chest pain, sob, abd pain, N/V/D. Also per nursing staff, pt has had a fall from her weakness yesterday although there was no trauma or LOC. The patient has a history of UTIs, with her last infection this year in which she was treated for a fungal infection. Upon arrival in ER, pt noted to have leukocytosis and pos UA findings indicative of UTI. Past Medical/Surgical History Medical Problems: (1) Atrial fibrillation Status: Chronic (2) Cardiomyopathy Permanent Comment: echo - eF - 40- 45% (09/19/2012) Status: Chronic (3) CKD (chronic kidney disease) Status: Chronic (4) DM w/o complication type II Status: Chronic (5) DVT (deep venous thrombosis) Status: Resolved (6) Dyslipidemia Status: Chronic (7) Lymphedema Status: Chronic (8) Obesity Status: Chronic (9) PE (pulmonary embolism) Status: Resolved (10) TIA (transient ischemic attack) Permanent Comment: november 2012 Status: Resolved Surgical Problems: (1) H/O cardiac catheterization Permanent Comment: IN 2005 - as per patient - this was normal Status: Resolved (2) Hip joint replacement status Permanent Comment: RIGHT Status: Resolved (3) S/P TKR (total knee replacement) Permanent Comment: BILATERAL Status: Resolved Family History Patient reports no known family medical history. Social History Smoking Status: Never Smoker Drug Use: none Marital Status: Housing status: lives alone Occupational Status: retired Immunizations History of Influenza Vaccine: Yes Influenza Vaccine Date: Mar 02, 2013 History of Tetanus Vaccine?: Yes Tetanus Immunization Date: May 02, 2011 History of Pneumococcal: Yes Pneumococcal Date: May 02, 2011 History of Hepatitis B Vaccine: No Allergies Coded Allergies: Morphine (Unverified Allergy, Intermediate, VOMITING, 08/11/16) Adhesives (Verified Allergy, Unknown, RASH, 08/11/16) Digoxin (Unverified Adverse Reaction, Severe, DIGTOXIC, 08/11/16) Home Medications Scheduled Aspirin Enteric Coated (Ecotrin Or Generic), 81 MG PO DAILY Atorvastatin (Lipitor), 40 MG PO DAILY Carvedilol (Coreg), 25 MG PO BID Furosemide (Lasix), 20 MG PO DAILY Lorazepam (Ativan), 1 MG PO QID PRN Multiple Vitamin (Multivitamin), 1 TAB PO DAILY Multiple Vitamins W/ Minerals (Vision Vitamins), 1 TAB PO DAILY Ondasetron Odt (Zofran Odt), 4 MG SL Q6H Polyethylene Glycol 3350 (Miralax), 17 GM PO DAILY Ranitidine Hcl (Zantac), 150 MG PO DAILY Sertraline (Zoloft), 100 MG PO DAILY Triazolam (Triazolam), 0.25 MG PO HS Scheduled PRN Acetaminophen (Acetaminophen), 500 MG PO BID PRN for Pain Diphenoxylate/Atropine (Lomotil), 1 TAB PO Q6 PRN for Diarrhea Docusate Sodium (Colace), 1 CAP PO DAILY PRN for Constipation Tramadol Hcl (Ultram), 50 MG PO BID PRN for Pain Review of Systems Constitutional: + fatigue, + weakness, No chills, No fever Respiratory: No cough, No sputum Cardiovascular: No chest pain, No orthopnea Abdomen: No nausea, No pain, No vomiting Musculoskeletal: No joint pain, No muscle pain Genitourinary - Female: No dysuria, No urinary frequency, No urinary urgency Neurologic: No paralysis, No weakness Psychiatric: + problem reported (hallucinations) Endocrine: + fatigue Physical Exam Vital Signs Date Time Temp Pulse Resp B/P Pulse Ox O2 Delivery O2 Flow Rate FiO2 08/11/16 19:36 36.8 81 16 104/69 93 08/11/16 19:22 36.8 81 16 104/69 93 Room Air 08/11/16 18:27 82 20 109/66 93 Room Air 08/11/16 17:07 84 21 125/68 93 Room Air 08/11/16 16:26 85 08/11/16 15:28 36.7 84 17 121/76 93 Room Air General Appearance: WD/WN, no apparent distress Head: normocephalic, atraumatic Neck: supple, no adenopathy Respiratory/Chest: lungs clear, normal breath sounds Cardiovascular: no edema, no gallop Abdomen/GI: non tender, soft Extremities/Musculoskelatal: normal inspection, no calf tenderness Neurologic/Psych: alert, normal mood/affect Diagnostics Laboratory Results Results Past 24 Hours Test 08/11/16 16:04 08/11/16 16:30 Range/Units White Blood Count 17.03 4.8-10.8 K/uL Red Blood Count 3.50 4.2-5.4 M/uL Hemoglobin 10.0 12.0-16.0 g/dL Hematocrit 31.0 37-47 % Mean Corpuscular Volume 88.6 80-100 fL Mean Corpuscular Hemoglobin 28.6 25-34 pg Mean Corpuscular Hemoglobin Concent 32.3 32-36 g/dl Platelet Count 435 130-400 K/uL Mean Platelet Volume 8.8 7.4-10.4 fL Neutrophils (%) (Auto) 81.2 % Lymphocytes (%) (Auto) 10.0 % Monocytes (%) (Auto) 8.3 % Eosinophils (%) (Auto) 0.1 % Basophils (%) (Auto) 0.1 % Neutrophils # (Auto) 13.81 1.4-6.5 K/uL Lymphocytes # (Auto) 1.71 1.2-3.4 K/uL Monocytes # (Auto) 1.42 0.11-0.59 K/uL Eosinophils # (Auto) 0.02 0-0.5 K/uL Basophils # (Auto) 0.02 0-0.2 K/uL RDW Standard Deviation 55.6 36.4-46.3 fL RDW Coefficient of Variation 17.0 11.5-14.5 % Immature Granulocyte % (Auto) 0.3 % Immature Granulocyte # (Auto) 0.05 0.00-0.02 K/uL Prothrombin Time 13.0 9.0-12.0 SECONDS Prothromb Time International Ratio 1.2 0.9-1.1 Activated Partial Thromboplast Time 28.0 21.0-31.0 SECONDS Partial Thromboplastin Ratio 1.1 Sodium Level 134 136-145 mmol/L Potassium Level 3.9 3.5-5.1 mmol/L Chloride Level 97 98-107 mmol/L Carbon Dioxide Level 26 21-32 mmol/L Anion Gap 11.0 3-11 mmol/L Blood Urea Nitrogen 40 7-18 mg/dl Creatinine 2.00 0.60-1.20 mg/dl Est Creatinine Clear Calc Drug Dose 30.3 ml/min Estimated GFR () 27.0 Estimated GFR (Non- 23.3 BUN/Creatinine Ratio 19.8 10-20 Random Glucose 145 70-99 mg/dl Calcium Level 9.0 8.5-10.1 mg/dl Total Bilirubin 0.6 0.2-1 mg/dl Direct Bilirubin 0.3 0-0.2 mg/dl Aspartate Amino Transf (AST/SGOT) 21 15-37 U/L Alanine Aminotransferase (ALT/SGPT) 15 12-78 U/L Alkaline Phosphatase 96 45-117 U/L Troponin I < 0.015 0-0.045 ng/ml Total Protein 7.0 6.4-8.2 gm/dl Albumin 2.1 3.4-5.0 gm/dl Urine Color DK YELLOW Urine Appearance TURBID CLEAR Urine pH 5.0 4.5-7.5 Urine Specific [place] 1.017 1.000-1.030 Urine Protein 1+ NEG Urine Glucose (UA) NEG NEG Urine Ketones NEG NEG Urine Occult Blood TRACE NEG Urine Nitrite NEG NEG Urine Bilirubin NEG NEG Urine Urobilinogen NEG NEG Urine Leukocyte Esterase LARGE NEG Urine WBC (Auto) >30 0-5 /hpf Urine RBC (Auto) 5-10 0-4 /hpf Urine Hyaline Casts (Auto) 1-5 0-5 /lpf Urine Epithelial Cells (Auto) 10-20 0-5 /lpf Urine Bacteria (Auto) 4+ NEG Microbiology Results 08/11/16 Blood Culture, Received Pending 08/11/16 Blood Culture, Received Pending 08/11/16 Urine Culture, Received Pending Impression Assessment and Plan Ms. Aviles is a 75 y/o female with PMHx ofAtrial Fibrillation, T2DM, HLD, CKD Stage 3 whom presents to ER with active visual hallucinations and weakness x 1 day Encephalopathy likely infectious in nature. Elevated WBC of 17 on admission with +UA. Await urine cx at this time Will treat empirically on cipro at this time. Noted yeast in previous cx and was tx with caspofungin per ID. CT head negative for any intracranial etiology. Will also hold zoloft as this med was start in past cple days and might be contributing to confusion. Persistent Atrial Fibrillation continue patient on coreg at this time, currently no on any AC T2DM - Patient has been on Glipizide in the past but has had frequent hypoglycemic episodes, will check HgA1C, ISS in the past has even caused hypoglycemia Chronic systolic CHF - ECHO 06/06 EF 45 - 50%, cont lipitor, lasix, coreg Acute on CKD stage 3, cont IVF , baseline Cr 1.8 Pt is DNR VTE Prophylaxis VTE Risk Assessment Done? Y/N: Yes Risk Level: Moderate
[2016-08-11] MEDS: CIPROFLOXACIN / D5W 400 MG in PREMIXED IN D5W 200 ML IV SCH (20:53)
[2016-08-11] MEDS: SODIUM CHLORIDE 0.9% 1000ML 1,000 ML IV SCH (20:53)
[2016-08-11] MEDS: CARVEDILOL 25 MG TAB PO SCH (20:55)
[2016-08-11] MEDS: HEPARIN SOD 5000 UNIT/0.5 ML CARP SQ SCH (20:56)
[2016-08-11 21:07] VITALS: BP 122/64; PULSE 89; TEMP 36.4; O2SAT 90
[2016-08-11 21:48] VITALS: BP 122/64; PULSE 89; TEMP 36.4; Ht 172.7 cm; Wt 107.0 kg
[2016-08-11 23:20] VITALS: BP 100/61; PULSE 79; TEMP 36.6; O2SAT 92
[2016-08-12] MEDS: ONDANSETRON 4MG OD TAB SL PRN (05:28)
[2016-08-12] MEDS: HEPARIN SOD 5000 UNIT/0.5 ML CARP SQ SCH ×3 (05:31→21:20)
[2016-08-12 05:47] LABS: ESTIMATED AVERAGE GLUCOSE 134 mg/dl; HA1C FLAG Normal (Normal)
[2016-08-12 06:31] LABS: BASO % 0.1 %; BASO ABS # 0.01 K/uL (0-0.2); COMPLETE YES; EOS % 0.2 %; HEMATOCRIT 31.2 % (37-47); IG% 0.2 %; LYMPH % 9.2 %; LYMPH ABS # 1.28 K/uL (1.2-3.4); MEAN CELL VOLUME 88.9 fL (80-100); MEAN CORPUSCULAR HEMOGLOBIN 27.9 pg (25-34); MEAN CORPUSCULAR HGB CONC 31.4 g/dl (32-36); MEAN PLATELET VOLUME 8.9 fL (7.4-10.4); MONO % 9.3 %; PLATELET COUNT 432 K/uL (130-400); RED BLOOD COUNT 3.51 M/uL (4.2-5.4); WHITE BLOOD COUNT 13.92 K/uL (4.8-10.8)
[2016-08-12 06:51] VITALS: BP 114/66; PULSE 83; TEMP 36.6; O2SAT 92
[2016-08-12 07:01] LABS: BUN/CREATININE RATIO 20.1 (10-20); CALCIUM 8.8 mg/dl (8.5-10.1); POTASSIUM 3.8 mmol/L (3.5-5.1)
[2016-08-12] MEDS: CIPROFLOXACIN / D5W 400 MG in PREMIXED IN D5W 200 ML IV SCH ×2 (07:35→19:53)
[2016-08-12] MEDS: ASPIRIN 81 MG ECTAB PO SCH (07:35)
[2016-08-12] MEDS: RANITIDINE HCL 150 MG TAB PO SCH (07:36)
[2016-08-12] MEDS: FUROSEMIDE 20 MG TAB PO SCH (07:36)
[2016-08-12] MEDS: CARVEDILOL 25 MG TAB PO SCH ×2 (07:36→19:53)
[2016-08-12] MEDS: ATORVASTATIN 40 MG TAB PO SCH (07:36)
[2016-08-12] MEDS: MULTIVITAMIN TAB PO SCH (07:36)
[2016-08-12] MEDS: CEROVITE ADV FORMULA TAB PO SCH (07:36)
[2016-08-12] MEDS ORDERED: MICONAZOLE NITRATE POWDER 43 GM ONE (09:29)
[2016-08-12] MEDS ORDERED: NURSING DECISION MEDICATION ORDER SCH (09:30)
[2016-08-12] MEDS: SODIUM CHLORIDE 0.9% 1000ML 1,000 ML IV SCH (09:35)
[2016-08-12] MEDS ORDERED: MICONAZOLE NITRATE POWDER 43 GM EXT PRN (09:45)
--- NOTE | 2016-08-12 14:52 | Progress Note ---
Subjective Date of Service: Aug 12, 2016. Subjective Pt evaluation today including: conversation w/ patient, conversation w/ family (daughters at the bedside), physical exam, lab review, review of inpatient medication list Pain: no pain PO Intake: adequate Voiding: no voiding problems patient resting in bed, admits to still having some hallucinations but not as bad ongoing issue for a few days at [facility] difficulty sleeping due to hallucinations and depression upset that she is in [facility] daughters at the bedside, very supportive was started on Zoloft 100mg, only received 2 doses discussed that urine culture growing E coli, WBC trending down Problem List Medical Problems: (1) Anemia Status: Acute (2) Contusion of rib on left side Status: Acute (3) Creatinine elevation Status: Acute (4) Visual hallucination Status: Acute Review of Systems Constitutional: + fatigue, + weakness Neurologic: + balance problems, + weakness Psychiatric: + depression symptoms, + insomnia, + problem reported (visual hallucinations) All Other Systems: Reviewed and Negative Medications Current Inpatient Medications Medications (Trade) Dose Ordered Sig/Daquan Route Start Time Stop Time Status Last Admin Dose Admin Heparin Sodium (Porcine) (Heparin Sq 5000 Unit/0.5ml) 5,000 unit Q8H SQ 08/11/16 22:00 09/10/16 21:59 08/12/16 13:48 5,000 UNIT Acetaminophen (Tylenol Tab) 650 mg Q4H PRN PO 08/11/16 19:00 09/10/16 18:59 Ondansetron HCl 4 mg 4 mg Q6H PRN IV 08/11/16 19:00 09/10/16 18:59 Ciprofloxacin/ Dextrose/Prmx (Cipro / D5w/ Premixed D5W) 200 ml @ 100 mls/hr Q12@0800,2000 IV 08/11/16 20:30 08/16/16 20:29 08/12/16 07:35 100 MLS/HR Aspirin (Ecotrin Tab) 81 mg DAILY PO 08/12/16 08:00 09/11/16 08:59 08/12/16 07:35 81 MG Atorvastatin Calcium (Lipitor Tab) 40 mg DAILY PO 08/12/16 08:00 09/11/16 08:59 08/12/16 07:36 40 MG Carvedilol (Coreg Tab) 25 mg BID PO 08/11/16 20:03 09/10/16 20:59 08/12/16 07:36 25 MG Diphenoxylate HCl/ Atropine (Lomotil Tab) 1 tab Q6 PRN PO 08/11/16 19:00 09/10/16 18:59 Docusate Sodium (coLACE CAP) 100 mg DAILY PRN PO 08/11/16 20:15 09/10/16 20:14 Furosemide (Lasix Tab) 20 mg DAILY PO 08/12/16 08:00 09/11/16 08:59 08/12/16 07:36 20 MG Multivitamins (Multivitamin Tab) 1 tab DAILY PO 08/12/16 08:00 09/11/16 08:59 08/12/16 07:36 1 TAB Multivitamins/ Minerals (Multivitamin W/ Minerals Tab) 1 tab DAILY PO 08/12/16 08:00 09/11/16 08:59 08/12/16 07:36 1 TAB Ondansetron HCl (Zofran Odt) 4 mg Q6H PRN SL 08/11/16 19:00 09/10/16 18:59 08/12/16 05:28 4 MG Ranitidine HCl (zANTac TAB) 150 mg DAILY PO 08/12/16 08:00 09/11/16 08:59 08/12/16 07:36 150 MG Tramadol HCl 50 mg 50 mg BID PRN PO 08/11/16 19:00 09/10/16 18:59 Sodium Chloride (Nss 1000ml) 1,000 ml @ 75 mls/hr [id number] IV 08/11/16 20:15 09/10/16 20:14 08/12/16 09:35 75 MLS/HR Miconazole Nitrate (Desenex Powder) 1 appln PRN PRN EXT 08/12/16 09:45 09/11/16 09:44 Objective Vital Signs Date Time Temp Pulse Resp B/P Pulse Ox O2 Delivery O2 Flow Rate FiO2 08/12/16 08:00 Room Air 08/12/16 06:51 36.6 83 18 114/66 92 Room Air 08/12/16 00:00 Room Air 08/11/16 23:20 36.6 79 18 100/61 92 Room Air 08/11/16 21:48 36.4 89 20 122/64 Room Air 08/11/16 21:07 36.4 89 20 122/64 90 Room Air 08/11/16 19:36 36.8 81 16 104/69 93 08/11/16 19:22 36.8 81 16 104/69 93 Room Air 08/11/16 18:27 82 20 109/66 93 Room Air 08/11/16 17:07 84 21 125/68 93 Room Air 08/11/16 16:26 85 08/11/16 15:28 36.7 84 17 121/76 93 Room Air Physical Exam General Appearance: WD/WN, no apparent distress Neck: supple, no adenopathy, no JVD, trachea midline Respiratory/Chest: chest non-tender, lungs clear, normal breath sounds, no respiratory distress, no accessory muscle use Cardiovascular: regular rate, rhythm, no edema, no gallop, no JVD, no murmur Abdomen: normal bowel sounds, non tender, soft, no organomegaly Extremities: normal range of motion, non-tender, normal inspection, no pedal edema, no calf tenderness Neurologic/Psychiatric: [employer] 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 tested, alert, oriented x 3, + motor weakness, + depressed affect Skin: normal color, warm/dry, no rash Laboratory Results Last 24 Hours Test 08/11/16 16:04 08/11/16 16:30 08/11/16 18:26 08/12/16 06:00 White Blood Count 17.03 K/uL 13.92 K/uL Red Blood Count 3.50 M/uL 3.51 M/uL Hemoglobin 10.0 g/dL 9.8 g/dL Hematocrit 31.0 % 31.2 % Mean Corpuscular Volume 88.6 fL 88.9 fL Mean Corpuscular Hemoglobin 28.6 pg 27.9 pg Mean Corpuscular Hemoglobin Concent 32.3 g/dl 31.4 g/dl Platelet Count 435 K/uL 432 K/uL Mean Platelet Volume 8.8 fL 8.9 fL Neutrophils (%) (Auto) 81.2 % 81.0 % Lymphocytes (%) (Auto) 10.0 % 9.2 % Monocytes (%) (Auto) 8.3 % 9.3 % Eosinophils (%) (Auto) 0.1 % 0.2 % Basophils (%) (Auto) 0.1 % 0.1 % Neutrophils # (Auto) 13.81 K/uL 11.28 K/uL Lymphocytes # (Auto) 1.71 K/uL 1.28 K/uL Monocytes # (Auto) 1.42 K/uL 1.29 K/uL Eosinophils # (Auto) 0.02 K/uL 0.03 K/uL Basophils # (Auto) 0.02 K/uL 0.01 K/uL RDW Standard Deviation 55.6 fL 56.5 fL RDW Coefficient of Variation 17.0 % 17.3 % Immature Granulocyte % (Auto) 0.3 % 0.2 % Immature Granulocyte # (Auto) 0.05 K/uL 0.03 K/uL Prothrombin Time 13.0 SECONDS Prothromb Time International Ratio 1.2 Activated Partial Thromboplast Time 28.0 SECONDS Partial Thromboplastin Ratio 1.1 Sodium Level 134 mmol/L 135 mmol/L Potassium Level 3.9 mmol/L 3.8 mmol/L Chloride Level 97 mmol/L 97 mmol/L Carbon Dioxide Level 26 mmol/L 27 mmol/L Anion Gap 11.0 mmol/L 11.0 mmol/L Blood Urea Nitrogen 40 mg/dl 40 mg/dl Creatinine 2.00 mg/dl 2.00 mg/dl Est Creatinine Clear Calc Drug Dose 30.3 ml/min 30.6 ml/min Estimated GFR () 27.0 27.0 Estimated GFR (Non- 23.3 23.3 BUN/Creatinine Ratio 19.8 20.1 Random Glucose 145 mg/dl 150 mg/dl Estimated Average Glucose 134 mg/dl Hemoglobin A1c 6.3 % Calcium Level 9.0 mg/dl 8.8 mg/dl Total Bilirubin 0.6 mg/dl Direct Bilirubin 0.3 mg/dl Aspartate Amino Transf (AST/SGOT) 21 U/L Alanine Aminotransferase (ALT/SGPT) 15 U/L Alkaline Phosphatase 96 U/L Troponin I < 0.015 ng/ml Total Protein 7.0 gm/dl Albumin 2.1 gm/dl Urine Color DK YELLOW Urine Appearance TURBID Urine pH 5.0 Urine Specific [place] 1.017 Urine Protein 1+ Urine Glucose (UA) NEG Urine Ketones NEG Urine Occult Blood TRACE Urine Nitrite NEG Urine Bilirubin NEG Urine Urobilinogen NEG Urine Leukocyte Esterase LARGE Urine WBC (Auto) >30 /hpf Urine RBC (Auto) 5-10 /hpf Urine Hyaline Casts (Auto) 1-5 /lpf Urine Epithelial Cells (Auto) 10-20 /lpf Urine Bacteria (Auto) 4+ Bedside Lactic Acid Venous 1.31 mmol/L Assessment and Plan Ms. Aviles is a 75 y/o female with PMHx ofAtrial Fibrillation, T2DM, HLD, CKD Stage 3 whom presents to ER with active visual hallucinations and weakness x 1 day, found to have E coli UTI , likely causing symptoms Encephalopathy, metabolic, due to E coli UTI WBC trending down, afebrile, less confusion today continue Cipro IV, await culture sensitivities CT head normal Zoloft started at 100mg which is too high initially, will start at 50mg daily , hallucinations are not a side effect d/c fluids, eating well Persistent Atrial Fibrillation continue patient on coreg at this time, currently no on any AC rates well controlled T2DM - Patient has been on Glipizide in the past but has had frequent hypoglycemic episodes, A1c 6, no meds needed holding on NSS, sugar 150 last check Chronic systolic CHF - ECHO 06/06 EF 45 - 50%, cont lipitor, lasix, coreg CKD stage III: stable at 2.0, ranges 1.7-2.0 outpatient, stop fluids Depression/adjustment disorder: okay with Zoloft, just at lower dose of 50mg initially order for evening Pt is DNR
[2016-08-12 14:58] VITALS: BP 120/81; PULSE 83; TEMP 36.6; O2SAT 92
[2016-08-12] MEDS: SERTRALINE HCL 50 MG TAB PO SCH (20:34)
[2016-08-12 23:48] VITALS: BP 92/62; PULSE 85; TEMP 36.5; O2SAT 92
[2016-08-13] MEDS: ACETAMINOPHEN 325 MG TAB PO PRN (02:38)
[2016-08-13] MEDS: ONDANSETRON 4MG OD TAB SL PRN (05:05)
[2016-08-13 06:22] LABS: BASO % 0.1 %; BASO ABS # 0.01 K/uL (0-0.2); COMPLETE YES; EOS % 0.3 %; HEMATOCRIT 30.8 % (37-47); IG% 0.3 %; LYMPH % 10.6 %; LYMPH ABS # 1.45 K/uL (1.2-3.4); MEAN CELL VOLUME 89.5 fL (80-100); MEAN CORPUSCULAR HEMOGLOBIN 27.9 pg (25-34); MEAN CORPUSCULAR HGB CONC 31.2 g/dl (32-36); MONO % 11.6 %; NEUT % 77.1 %; PLATELET COUNT 432 K/uL (130-400); RED BLOOD COUNT 3.44 M/uL (4.2-5.4); WHITE BLOOD COUNT 13.64 K/uL (4.8-10.8)
[2016-08-13] MEDS: HEPARIN SOD 5000 UNIT/0.5 ML CARP SQ SCH ×3 (06:31→21:59)
[2016-08-13 06:53] LABS: BUN/CREATININE RATIO 20.3 (10-20); CALCIUM 8.7 mg/dl (8.5-10.1); CREATININE 2.1 mg/dl (0.60-1.20); POTASSIUM 3.6 mmol/L (3.5-5.1)
[2016-08-13 07:45] VITALS: BP 118/73; PULSE 83; TEMP 36.3; O2SAT 92
[2016-08-13] MEDS: CEROVITE ADV FORMULA TAB PO SCH ×2 (07:51→08:00)
[2016-08-13] MEDS: RANITIDINE HCL 150 MG TAB PO SCH (07:51)
[2016-08-13] MEDS: DOCUSATE SODIUM 100 MG CAP PO PRN (07:51)
[2016-08-13] MEDS: ASPIRIN 81 MG ECTAB PO SCH (07:52)
[2016-08-13] MEDS: ATORVASTATIN 40 MG TAB PO SCH (07:52)
[2016-08-13] MEDS: FUROSEMIDE 20 MG TAB PO SCH (07:52)
[2016-08-13] MEDS: CARVEDILOL 25 MG TAB PO SCH ×2 (07:52→19:52)
[2016-08-13] MEDS: MULTIVITAMIN TAB PO SCH (07:53)
[2016-08-13] MEDS: CEFTRIAXONE SOD INJ 1,000 MG in DEXTROSE 5% 50ML 50 ML IV SCH (08:30)
[2016-08-13] MEDS: BOOST PLUS VANILLA PO SCH ×4 (14:04→17:00)
--- NOTE | 2016-08-13 14:51 | Progress Note ---
Subjective Date of Service: Aug 13, 2016. Subjective Pt evaluation today including: conversation w/ patient, conversation w/ family , physical exam, lab review, review of inpatient medication list Pain: no pain today PO Intake: adequate Voiding: no voiding problems patient still with hallucinations, seeing dogs and a woman in the room discussed that E coli resistant to Cipro, changed antibiotics to Rocephin updated daughters in the room today plan to continue current therapy, hopeful that hallucinations improve with antibiotics Problem List Medical Problems: (1) Anemia Status: Acute (2) Contusion of rib on left side Status: Acute (3) Creatinine elevation Status: Acute (4) Visual hallucination Status: Acute Review of Systems Constitutional: + fatigue, + weakness Psychiatric: + depression symptoms, + problem reported (visual hallucinations) All Other Systems: Reviewed and Negative Medications Current Inpatient Medications Medications (Trade) Dose Ordered Sig/Daquan Route Start Time Stop Time Status Last Admin Dose Admin Heparin Sodium (Porcine) (Heparin Sq 5000 Unit/0.5ml) 5,000 unit Q8H SQ 08/11/16 22:00 09/10/16 21:59 08/13/16 14:07 5,000 UNIT Acetaminophen (Tylenol Tab) 650 mg Q4H PRN PO 08/11/16 19:00 09/10/16 18:59 08/13/16 02:38 650 MG Ondansetron HCl (Zofran Inj) 4 mg Q6H PRN IV 08/11/16 19:00 09/10/16 18:59 Aspirin (Ecotrin Tab) 81 mg DAILY PO 08/12/16 08:00 09/11/16 08:59 08/13/16 07:52 81 MG Atorvastatin Calcium (Lipitor Tab) 40 mg DAILY PO 08/12/16 08:00 09/11/16 08:59 08/13/16 07:52 40 MG Carvedilol (Coreg Tab) 25 mg BID PO 08/11/16 20:03 09/10/16 20:59 08/13/16 07:52 25 MG Diphenoxylate HCl/ Atropine (Lomotil Tab) 1 tab Q6 PRN PO 08/11/16 19:00 09/10/16 18:59 Docusate Sodium (coLACE CAP) 100 mg DAILY PRN PO 08/11/16 20:15 09/10/16 20:14 08/13/16 07:51 100 MG Furosemide (Lasix Tab) 20 mg DAILY PO 08/12/16 08:00 09/11/16 08:59 08/13/16 07:52 20 MG Multivitamins (Multivitamin Tab) 1 tab DAILY PO 08/12/16 08:00 09/11/16 08:59 08/13/16 07:53 1 TAB Multivitamins/ Minerals (Multivitamin W/ Minerals Tab) 1 tab DAILY PO 08/12/16 08:00 09/11/16 08:59 08/12/16 07:36 1 TAB Ondansetron HCl (Zofran Odt) 4 mg Q6H PRN SL 08/11/16 19:00 09/10/16 18:59 08/13/16 05:05 4 MG Ranitidine HCl (zANTac TAB) 150 mg DAILY PO 08/12/16 08:00 09/11/16 08:59 08/13/16 07:51 150 MG Tramadol HCl (Ultram Tab) 50 mg BID PRN PO 08/11/16 19:00 09/10/16 18:59 Miconazole Nitrate (Desenex Powder) 1 appln PRN PRN EXT 08/12/16 09:45 09/11/16 09:44 Sertraline HCl 50 mg 50 mg QPM PO 08/12/16 21:00 09/11/16 20:59 08/12/16 20:34 50 MG Ceftriaxone Sodium/Dextrose (Rocephin Inj/D5 50ml) 60 ml @ 100 mls/hr DAILY IV 08/13/16 08:00 08/18/16 07:59 08/13/16 08:30 100 MLS/HR Enteral Nutritional Formula (Boost Plus Vanilla) 1 can TIDM PO 08/13/16 12:00 09/12/16 11:59 08/13/16 14:04 1 CAN Objective Vital Signs Date Time Temp Pulse Resp B/P Pulse Ox O2 Delivery O2 Flow Rate FiO2 08/13/16 08:09 Room Air 08/13/16 07:45 36.3 83 18 118/73 92 Room Air 08/12/16 23:59 Room Air 08/12/16 23:48 36.5 85 18 92/62 92 Room Air 08/12/16 20:00 Room Air 08/12/16 16:00 Room Air 08/12/16 14:58 36.6 83 20 120/81 92 Room Air Physical Exam General Appearance: WD/WN, no apparent distress Eyes: normal inspection, EOMI, sclerae normal ENT: normal ENT inspection, hearing grossly normal, pharynx normal Neck: supple, no adenopathy, no JVD, trachea midline Respiratory/Chest: chest non-tender, lungs clear, normal breath sounds, no respiratory distress, no accessory muscle use Cardiovascular: regular rate, rhythm, no edema, no gallop, no JVD, no murmur Abdomen: normal bowel sounds, non tender, soft, no organomegaly Extremities: normal range of motion, non-tender, normal inspection, no pedal edema, no calf tenderness, pelvis stable 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, no motor/sensory deficits, alert, normal mood/affect, oriented x 3 Skin: normal color, warm/dry, no rash Lymphatic: no adenopathy Laboratory Results Last 24 Hours Test 08/13/16 05:44 White Blood Count 13.64 K/uL Red Blood Count 3.44 M/uL Hemoglobin 9.6 g/dL Hematocrit 30.8 % Mean Corpuscular Volume 89.5 fL Mean Corpuscular Hemoglobin 27.9 pg Mean Corpuscular Hemoglobin Concent 31.2 g/dl Platelet Count 432 K/uL Mean Platelet Volume 9.0 fL Neutrophils (%) (Auto) 77.1 % Lymphocytes (%) (Auto) 10.6 % Monocytes (%) (Auto) 11.6 % Eosinophils (%) (Auto) 0.3 % Basophils (%) (Auto) 0.1 % Neutrophils # (Auto) 10.52 K/uL Lymphocytes # (Auto) 1.45 K/uL Monocytes # (Auto) 1.58 K/uL Eosinophils # (Auto) 0.04 K/uL Basophils # (Auto) 0.01 K/uL RDW Standard Deviation 56.8 fL RDW Coefficient of Variation 17.3 % Immature Granulocyte % (Auto) 0.3 % Immature Granulocyte # (Auto) 0.04 K/uL Sodium Level 135 mmol/L Potassium Level 3.6 mmol/L Chloride Level 97 mmol/L Carbon Dioxide Level 27 mmol/L Anion Gap 11.0 mmol/L Blood Urea Nitrogen 43 mg/dl Creatinine 2.10 mg/dl Est Creatinine Clear Calc Drug Dose 29.1 ml/min Estimated GFR () 25.5 Estimated GFR (Non- 22.0 BUN/Creatinine Ratio 20.3 Random Glucose 150 mg/dl Calcium Level 8.7 mg/dl Assessment and Plan Ms. Aviles is a 75 y/o female with PMHx of Atrial Fibrillation, T2DM, HLD, CKD Stage 3 whom presents to ER with active visual hallucinations and weakness x 1 day, found to have E coli UTI , likely causing symptoms Encephalopathy, metabolic, due to E coli UTI WBC stable at 13k, afebrile, no confusion but still with hallucinations resistant to Cipro, change to Rocephin, today is day #1 CT head normal Persistent Atrial Fibrillation continue patient on coreg at this time, currently no on any AC rates well controlled T2DM - Patient has been on Glipizide in the past but has had frequent hypoglycemic episodes, A1c 6, no meds needed holding on NSS, sugars stable Chronic systolic CHF - ECHO 06/06 EF 45 - 50%, cont lipitor, lasix, coreg CKD stage III: stable at 2.1, ranges 1.7-2.0 outpatient, stop fluids Depression/adjustment disorder: okay with Zoloft, just at lower dose of 50mg initially order for evening can gradually taper up as outpatient if desired Pt is DNR Plan: treat UTI with Rocephin, look for hallucinations to resolve, if they don' t resolve then may need to consider low dose anti-psychotic could warrant inpatient psychiatric consult since she also has depression symptoms adjusting to [facility]
[2016-08-13 15:05] VITALS: BP 123/75; PULSE 73; TEMP 36.6; O2SAT 93
[2016-08-13 19:41] VITALS: BP 110/63; PULSE 83; TEMP 36.3; O2SAT 92
[2016-08-13] MEDS: TRAMADOL HCL 50 MG TAB PO PRN (19:57)
[2016-08-13 20:00] VITALS: O2SAT 92
[2016-08-13] MEDS: SERTRALINE HCL 50 MG TAB PO SCH (21:03)
[2016-08-13 23:59] VITALS: BP 130/75; PULSE 78; TEMP 36.4; O2SAT 92
[2016-08-14] MEDS: TRAMADOL HCL 50 MG TAB PO PRN (06:04)
[2016-08-14] MEDS: HEPARIN SOD 5000 UNIT/0.5 ML CARP SQ SCH ×3 (06:07→21:51)
[2016-08-14 06:25] LABS: BASO % 0.1 %; BASO ABS # 0.01 K/uL (0-0.2); COMPLETE YES; EOS % 0.5 %; HEMATOCRIT 30.8 % (37-47); IG% 0.4 %; LYMPH % 11.9 %; LYMPH ABS # 1.49 K/uL (1.2-3.4); MEAN CELL VOLUME 89.5 fL (80-100); MEAN CORPUSCULAR HEMOGLOBIN 28.2 pg (25-34); MEAN CORPUSCULAR HGB CONC 31.5 g/dl (32-36); MEAN PLATELET VOLUME 8.8 fL (7.4-10.4); MONO % 12.3 %; NEUT % 74.8 %; PLATELET COUNT 406 K/uL (130-400); RED BLOOD COUNT 3.44 M/uL (4.2-5.4); WHITE BLOOD COUNT 12.54 K/uL (4.8-10.8)
[2016-08-14 06:49] LABS: BUN/CREATININE RATIO 19.4 (10-20); CALCIUM 8.6 mg/dl (8.5-10.1); CREATININE 2.2 mg/dl (0.60-1.20); POTASSIUM 3.7 mmol/L (3.5-5.1)
[2016-08-14 07:11] VITALS: BP 109/61; PULSE 80; TEMP 36.4; O2SAT 90
[2016-08-14] MEDS: CEROVITE ADV FORMULA TAB PO SCH (08:00)
[2016-08-14] MEDS: BOOST PLUS VANILLA PO SCH ×6 (08:00→17:00)
[2016-08-14] MEDS: CEFTRIAXONE SOD INJ 1,000 MG in DEXTROSE 5% 50ML 50 ML IV SCH (08:09)
[2016-08-14] MEDS: RANITIDINE HCL 150 MG TAB PO SCH (08:10)
[2016-08-14] MEDS: FUROSEMIDE 20 MG TAB PO SCH (08:10)
[2016-08-14] MEDS: ATORVASTATIN 40 MG TAB PO SCH (08:10)
[2016-08-14] MEDS: ASPIRIN 81 MG ECTAB PO SCH (08:10)
[2016-08-14] MEDS: MULTIVITAMIN TAB PO SCH (08:10)
[2016-08-14] MEDS: CARVEDILOL 25 MG TAB PO SCH ×2 (08:10→20:52)
--- NOTE | 2016-08-14 09:28 | Clinical Documentation Query ---
QUERY 1 OF [address] VALENTIN, In your clinical opinion is this patient being managed for: ( X ) Sepsis due to UTI ( ) Other explanation of clinical findings (Please Explain) ( ) Unable to determine (Please Define) ( ) Need to Discuss ( ) Not Agree The medical record reflects the following clinical findings, treatment, and risk factors. Clinical Indicators: 76 yo female presenting with Encephalopathy, visual hallucinations. Found to have E coli UTI. WBC 17.03 Treatment: IV rocephin, IV cipro, IV fluids, IV zosyn Risk Factors: age, recurrent UTI's, DM QUERY 2 OF 2 In your clinical opinion has this patient progressed to: ( X ) Chronic kidney disease, stage 4 ( ) Other explanation of clinical findings (Please Explain) ( ) Unable to determine (Please Define) ( ) Need to Discuss ( ) Not Agree The medical record reflects the following clinical findings, treatment, and risk factors. Clinical Indicators: Documentation reflects pt with CKD stage III. Review of historical GFR shows range of 20.8-26.7 Treatment: monitor PRP's Risk Factors: age, DM, A fib, Please clarify and document your clinical opinion in the progress notes and discharge summary. Terms such as "probable", "suspected", "likely", "questionable", "possible", or "still to be ruled out" are acceptable. IF IN AGREEMENT, YOU MUST DOCUMENT ABOVE DIAGNOSTIC STATEMENT IN DAILY PROGRESS NOTES AND DISCHARGE SUMMARY. This document is not part of the patient's record. Thank You, Marsha Valenzuela, RN [phone]
[2016-08-14] MEDS: BOOST GLUCOSE CONTROL PO SCH (10:00)
--- NOTE | 2016-08-14 13:31 | Progress Note ---
Subjective Date of Service: Aug 14, 2016. Subjective Pt evaluation today including: conversation w/ patient, physical exam, chart review, lab review, review of studies, review of inpatient medication list Per staff last hallucination was yesterday afternoon Resting in bed comfortably Denies any fevers, chills, abdominal pain or pain/burning on urination Problem List Medical Problems: (1) Anemia Status: Acute (2) Contusion of rib on left side Status: Acute (3) Creatinine elevation Status: Acute (4) Visual hallucination Status: Acute Review of Systems Constitutional: No chills, No fever Respiratory: No cough, No dyspnea on exertion, No shortness of breath, No sputum, No wheezing Cardiac: No chest pain, No orthopnea Abdomen: No constipation, No nausea, No pain, No vomiting Musculoskeletal: No joint pain, No muscle pain Female : No dysuria, No urinary frequency Neurologic: No numbness/tingling, No weakness Objective Vital Signs Date Time Temp Pulse Resp B/P Pulse Ox O2 Delivery O2 Flow Rate FiO2 08/14/16 08:00 Room Air 08/14/16 07:11 36.4 80 20 109/61 90 Room Air 08/13/16 23:59 36.4 78 20 130/75 92 Room Air 08/13/16 23:59 Room Air 08/13/16 20:00 92 Room Air 08/13/16 19:41 36.3 83 18 110/63 92 Room Air 08/13/16 15:05 36.6 73 18 123/75 93 Room Air Physical Exam General Appearance: WD/WN, no apparent distress Neck: supple, no adenopathy Respiratory/Chest: lungs clear, normal breath sounds Cardiovascular: no edema, no gallop Abdomen: non tender, soft Extremities: non-tender, normal inspection Neurologic/Psychiatric: alert, normal mood/affect Laboratory Results Last 24 Hours Test 08/14/16 05:53 White Blood Count 12.54 K/uL Red Blood Count 3.44 M/uL Hemoglobin 9.7 g/dL Hematocrit 30.8 % Mean Corpuscular Volume 89.5 fL Mean Corpuscular Hemoglobin 28.2 pg Mean Corpuscular Hemoglobin Concent 31.5 g/dl Platelet Count 406 K/uL Mean Platelet Volume 8.8 fL Neutrophils (%) (Auto) 74.8 % Lymphocytes (%) (Auto) 11.9 % Monocytes (%) (Auto) 12.3 % Eosinophils (%) (Auto) 0.5 % Basophils (%) (Auto) 0.1 % Neutrophils # (Auto) 9.39 K/uL Lymphocytes # (Auto) 1.49 K/uL Monocytes # (Auto) 1.54 K/uL Eosinophils # (Auto) 0.06 K/uL Basophils # (Auto) 0.01 K/uL RDW Standard Deviation 56.6 fL RDW Coefficient of Variation 17.3 % Immature Granulocyte % (Auto) 0.4 % Immature Granulocyte # (Auto) 0.05 K/uL Sodium Level 137 mmol/L Potassium Level 3.7 mmol/L Chloride Level 99 mmol/L Carbon Dioxide Level 27 mmol/L Anion Gap 11.0 mmol/L Blood Urea Nitrogen 43 mg/dl Creatinine 2.20 mg/dl Est Creatinine Clear Calc Drug Dose 27.8 ml/min Estimated GFR () 24.1 Estimated GFR (Non- 20.8 BUN/Creatinine Ratio 19.4 Random Glucose 143 mg/dl Calcium Level 8.6 mg/dl Assessment and Plan Ms. Aviles is a 75 y/o female with PMHx ofAtrial Fibrillation, T2DM, HLD, CKD Stage 3 whom presents to ER with active visual hallucinations and weakness 1 day [employer] Encephalopathy likely infectious in nature from UTI. Elevated WBC of 17 on admission with +UA. Urine cx + for e coli Was initially on cipro however sens determined resistance and thusly switched to rocephin. Leukocytosis improving. No hallucinatiosn on 08/14. Will convert to Keflex 250 mg PO BID with likely DC to [facility] on 08/15 Persistent Atrial Fibrillation continue patient on coreg at this time, currently no on any AC T2DM - Patient has been on Glipizide in the past but has had frequent hypoglycemic episodes, HgA1C 6.3, ISS in the past has even caused hypoglycemia Chronic systolic CHF - ECHO 06/06 EF 45 - 50%, cont lipitor, lasix, coreg CKD stage 4, cont IVF , baseline Cr 1.8 Pt is DNR
[2016-08-14 15:40] VITALS: BP 126/60; PULSE 85; TEMP 36.3; O2SAT 90
[2016-08-14] MEDS: CEPHALEXIN MONOHYDRATE 250 MG CAP PO SCH ×2 (15:44→21:50)
[2016-08-14 16:10] VITALS: O2SAT 90
[2016-08-14 20:50] VITALS: BP 105/60; PULSE 82
[2016-08-14] MEDS: SERTRALINE HCL 50 MG TAB PO SCH (20:52)
[2016-08-14] MEDS ORDERED: CEFDINIR 125 MG/5 ML 60 ML BTL PO SCH (21:00)
[2016-08-14 23:48] VITALS: BP 109/63; PULSE 78; TEMP 36.3; O2SAT 92
[2016-08-15] MEDS: TRAMADOL HCL 50 MG TAB PO PRN (04:21)
[2016-08-15] MEDS: HEPARIN SOD 5000 UNIT/0.5 ML CARP SQ SCH ×3 (05:51→20:54)
[2016-08-15 06:46] LABS: BASO % 0.1 %; BASO ABS # 0.01 K/uL (0-0.2); COMPLETE YES; EOS % 0.6 %; HEMATOCRIT 31.8 % (37-47); IG% 0.7 %; LYMPH % 11.9 %; LYMPH ABS # 1.41 K/uL (1.2-3.4); MEAN CELL VOLUME 90.6 fL (80-100); MEAN CORPUSCULAR HEMOGLOBIN 27.9 pg (25-34); MEAN CORPUSCULAR HGB CONC 30.8 g/dl (32-36); MEAN PLATELET VOLUME 9.1 fL (7.4-10.4); MONO % 11.8 %; NEUT % 74.9 %; PLATELET COUNT 395 K/uL (130-400); RED BLOOD COUNT 3.51 M/uL (4.2-5.4); WHITE BLOOD COUNT 11.83 K/uL (4.8-10.8)
[2016-08-15 07:16] LABS: BUN/CREATININE RATIO 18.1 (10-20); CALCIUM 8.3 mg/dl (8.5-10.1); CREATININE 2.4 mg/dl (0.60-1.20); POTASSIUM 3.8 mmol/L (3.5-5.1)
[2016-08-15 07:33] VITALS: BP 100/67; PULSE 76; TEMP 36.4; O2SAT 91
--- NOTE | 2016-08-15 07:50 | Clinical Documentation Query ---
CLINICAL DOCUMENTATION QUERY Dr. MONTES, In your clinical opinion is this patient being managed for: (x ) Sepsis due to UTI ( ) Other explanation of clinical findings (Please Explain) ( ) Unable to determine (Please Define) ( ) Need to Discuss ( ) Not Agree The medical record reflects the following clinical findings, treatment, and risk factors. Clinical Indicators: 76 yo female presenting with Encephalopathy, visual hallucinations. Found to have E coli UTI. WBC 17.03 Treatment: IV rocephin, IV cipro, IV fluids, IV zosyn Risk Factors: age, recurrent UTI's, DM Please clarify and document your clinical opinion in the progress notes and discharge summary. Terms such as "probable", "suspected", "likely", "questionable", "possible", or "still to be ruled out" are acceptable. IF IN AGREEMENT, YOU MUST DOCUMENT ABOVE DIAGNOSTIC STATEMENT IN DAILY PROGRESS NOTES AND DISCHARGE SUMMARY. This document is not part of the patient's record. Thank You, Marsha Valenzuela, VANCE [phone]
[2016-08-15] MEDS: CEROVITE ADV FORMULA TAB PO SCH ×2 (08:00→08:18)
[2016-08-15] MEDS: MULTIVITAMIN TAB PO SCH ×2 (08:00→08:17)
[2016-08-15] MEDS: BOOST PLUS VANILLA PO SCH ×6 (08:00→17:00)
[2016-08-15] MEDS: CEPHALEXIN MONOHYDRATE 250 MG CAP PO SCH ×2 (08:17→20:53)
[2016-08-15] MEDS: FUROSEMIDE 20 MG TAB PO SCH (08:17)
[2016-08-15] MEDS: ASPIRIN 81 MG ECTAB PO SCH (08:18)
[2016-08-15] MEDS: CARVEDILOL 25 MG TAB PO SCH ×2 (08:18→20:53)
[2016-08-15] MEDS: ATORVASTATIN 40 MG TAB PO SCH (08:18)
[2016-08-15] MEDS: RANITIDINE HCL 150 MG TAB PO SCH (08:18)
[2016-08-15] MEDS: BOOST GLUCOSE CONTROL PO SCH (10:00)
[2016-08-15 15:30] VITALS: BP 122/73; PULSE 82; TEMP 36.2; O2SAT 94
--- NOTE | 2016-08-15 15:44 | DIAGNOSTIC IMAGING REPORT ---
CT OF THE CHEST WITHOUT IV CONTRAST CLINICAL HISTORY: Left pleural effusion. History of trauma one month ago. Left-sided pain. COMPARISON STUDY: Chest x-ray dated 08/11/2016 CT DOSE: TECHNIQUE: CT of the thorax was performed from the thoracic inlet to the lung bases. Images are reviewed in the axial, sagittal, and coronal planes. IV contrast was not administered for this examination. FINDINGS: Thyroid: Imaged portions of the thyroid gland are normal in appearance. Thoracic aorta: The thoracic aorta is normal in course and caliber, noting standard 3 vessel arch anatomy. Heart: The heart is mildly enlarged with mild to moderate coronary artery calcifications Lungs and pleural spaces: There is a large left pleural effusion. There are left lower lobe compressive atelectatic changes. Effusion exceeds water attenuation. While this may be secondary to technical factors given streak artifact from humerus, I cannot exclude an exudative effusion Mediastinum: There is a precarinal lymph node the upper limits of normal in size. Sherri: There is no evidence of pathologic hilar adenopathy given the limitations of a noncontrast study Axilla: Clear. Upper abdomen: There is an old fracture of the left 11th rib. There is a complex left-sided perinephric fluid collection which extends into the left posterior abdominal wall. This will be described separately in the CT report of the abdomen and pelvis Skeletal structures: There are healing left-sided rib fractures. There are advanced arthritic changes involving the shoulders. IMPRESSION: 1. Large left pleural effusion with presumed left lower lobe compressive atelectatic changes 2. The pleural effusion exceeds water attenuation. While this may be artifactual, an exudative effusion must be considered 3. Complex multi loculated left perinephric fluid collection with extension into the left posterior abdominal wall. This could represent a urinoma or hematoma. This finding will be further described on the dedicated CT scan of the abdomen and pelvis. Electronically signed by: Chadwick Morris M.D. 08/15/2016 3:42 PM Dictated Date/Time: 08/15/2016 3:29 PM
--- NOTE | 2016-08-15 15:52 | DIAGNOSTIC IMAGING REPORT ---
ADDENDUM Addendum: The left posterior retroperitoneal process extending into the left posterolateral abdominal wall remains indeterminate. Complex fluid collections, as described in the initial report, are favored. An atypical neoplastic process is within the differential but is considered much less likely. Electronically signed by: Elian Novak M.D. 08/15/2016 3:58 PM Dictated Date/Time: 08/15/2016 3:[address] OF THE ABDOMEN AND PELVIS WITHOUT CONTRAST, STONE PROTOCOL CLINICAL HISTORY: Recurrent urinary tract infection. Known left-sided renal stone. COMPARISON STUDY: CT of the abdomen and pelvis June 19, 2016. TECHNIQUE: Helical axial images of the abdomen and pelvis were obtained without IV or oral contrast according to renal stone protocol. FINDINGS: The chest will be reported separately. A large intermediate attenuation left pleural effusion has increased in size since CT of August 17, 2016. There are several subacute left lower rib fractures. A 1.8 cm calculus within the proximal left ureter is unchanged in position since prior exam. There is mild left collecting system dilatation which is unchanged. A 4.5 cm left subcapsular renal fluid collection is unchanged since prior exam of June 19, 2016. A multiloculated multicompartment fluid collection within the left pararenal/perirenal space extending through the left posterior lateral abdominal wall has increased in size since exam of June 19, 2016. This has multiple components. The largest component measures 10.8 x 4.6 cm. A smaller adjacent component measures 5.3 x 4 cm. This may communicate with the left pleural effusion. Evaluation of the abdomen and pelvis is suboptimal on this unenhanced exam. The gallbladder is surgically absent. There is no biliary ductal dilatation. There is extensive atherosclerotic calcification. Images of the pelvis are degraded by streak artifact from right hip arthroplasty. There is left colon diverticulosis without evidence for acute diverticulitis. There is no lymphadenopathy. No suspicious skeletal lesions are identified. IMPRESSION: 1. No change in the 1.8 cm proximal left ureteral calculus with mild left collecting system dilatation since CT of June 19, 2016. 2. Stable 4.5 cm left renal subcapsular fluid collection since prior CT. Interval increase in size of a large multiloculated, multicomponent fluid collection centered posterior to the left kidney which involves the perirenal/pararenal space and extends into the left posterolateral chest wall and may communicate with the lower left pleural effusion. This fluid collection is nonspecific and could reflect a hematoma, urinoma or abscess. 3. Large left pleural effusion, increased in size since CT of June 19, 2016. The pleural fluid measures greater than water attenuation which could be due to hemorrhage or exudate. 4. Healing subacute left-sided rib fractures. Electronically signed by: Elian Novak M.D. 08/15/2016 3:50 PM Dictated Date/Time: 08/15/2016 3:30 PM
[2016-08-15 20:51] VITALS: BP 108/70; PULSE 85
[2016-08-15] MEDS: SERTRALINE HCL 50 MG TAB PO SCH (20:53)
--- NOTE | 2016-08-15 22:55 | Progress Note ---
Subjective Date of Service: Aug 15, 2016. Subjective Pt evaluation today including: conversation w/ patient, conversation w/ family (2 daughters at bedside), physical exam, chart review, lab review, review of studies (CT chest/abd/pelvis), conversation w/ warehouse consultant (urology, CT surgery) , review of inpatient medication list Pain: left flank PO Intake: poor; has lost 50-60 pounds over the last few months Voiding: no voiding problems patient's main complaint is that of left flank pain, present since late June when she fell around the time of her - records show she was seen in our ER for such and had rib films that were negative for fracture c/o dyspnea with exertion c/o anorexia but this is chronic denies cough denies abdominal pain denies dysuria Problem List Medical Problems: (1) Anemia Status: Acute (2) Contusion of rib on left side Status: Acute (3) Creatinine elevation Status: Acute (4) Visual hallucination Status: Acute Review of Systems Constitutional: No chills, No fever Respiratory: + dyspnea on exertion, No cough Cardiac: No chest pain Abdomen: No nausea, No pain Female : No dysuria Objective Vital Signs Date Time Temp Pulse Resp B/P Pulse Ox O2 Delivery O2 Flow Rate FiO2 08/15/16 20:51 85 108/70 08/15/16 18:52 Room Air 08/15/16 15:30 36.2 82 20 122/73 94 Room Air 08/15/16 08:05 Room Air 08/15/16 07:33 36.4 76 20 100/67 91 Room Air 08/15/16 00:01 Room Air 08/14/16 23:48 36.3 78 18 109/63 92 Room Air Physical Exam General Appearance: no apparent distress, + obese ENT: pharynx normal Neck: no JVD Respiratory/Chest: lungs clear, no respiratory distress, no accessory muscle use, + decreased breath sounds (left base) Cardiovascular: no gallop, no murmur, + irregularly irregular Abdomen: normal bowel sounds, non tender, soft, no organomegaly Extremities: no pedal edema Neurologic/Psychiatric: alert, oriented x 3 Skin: + pertinent finding (stasis changes b/l legs) Comments: back - tender to palpation over the left flank region; there is a palpable area of swelling/lump over the left flank vs the right flank; the lump is tender to touch; there is no overlying erythema or warmth or crepitus Laboratory Results Last 24 Hours Test 08/15/16 05:52 White Blood Count 11.83 K/uL Red Blood Count 3.51 M/uL Hemoglobin 9.8 g/dL Hematocrit 31.8 % Mean Corpuscular Volume 90.6 fL Mean Corpuscular Hemoglobin 27.9 pg Mean Corpuscular Hemoglobin Concent 30.8 g/dl Platelet Count 395 K/uL Mean Platelet Volume 9.1 fL Neutrophils (%) (Auto) 74.9 % Lymphocytes (%) (Auto) 11.9 % Monocytes (%) (Auto) 11.8 % Eosinophils (%) (Auto) 0.6 % Basophils (%) (Auto) 0.1 % Neutrophils # (Auto) 8.86 K/uL Lymphocytes # (Auto) 1.41 K/uL Monocytes # (Auto) 1.40 K/uL Eosinophils # (Auto) 0.07 K/uL Basophils # (Auto) 0.01 K/uL RDW Standard Deviation 58.4 fL RDW Coefficient of Variation 17.5 % Immature Granulocyte % (Auto) 0.7 % Immature Granulocyte # (Auto) 0.08 K/uL Sodium Level 137 mmol/L Potassium Level 3.8 mmol/L Chloride Level 100 mmol/L Carbon Dioxide Level 27 mmol/L Anion Gap 10.0 mmol/L Blood Urea Nitrogen 43 mg/dl Creatinine 2.40 mg/dl Est Creatinine Clear Calc Drug Dose 25.5 ml/min Estimated GFR () 21.7 Estimated GFR (Non- 18.7 BUN/Creatinine Ratio 18.1 Random Glucose 135 mg/dl Calcium Level 8.3 mg/dl Assessment and Plan 76yo female with: 1. sepsis 2nd to UTI - resolved. 2. e. coli UTI - resolved. Day #5/7 of antibiotics. 3. metabolic encephalopathy 2nd to #1 - resolved. 4. flank tenderness on left 2nd to left perinephric and retroperitoneal fluid collection +/- left pleural effusion - scans reviewed in detail. She had both of these findings back in May. I suspect some element of hemorrhage in these 2 areas due to multiple episodes of falls/trauma. She previously bled in the left perinephric area while on anticoagulation; this was stopped in May. I spoke with Dr. Zhu who will consult in AM and comment on best course of action. If there is a fistula between the left pleural cavity and retroperitoneal space this is obviously quite concerning. Spoke with urology who will also consult in AM. She is not demonstrating signs of infection/abscess at this time. 5. left pleural effusion - worse than previous imaging. Repeat cxr in am for stability. CT surgery consultation. Hemorrhagic from trauma? other? 6. protein calorie malnutrition - moderate - boost if desired. 7. CKD stage 4 - creatinine slightly worse than baseline. Repeat BMP in am. 8. h/o abnormal TFTs - repeat TSH in am. 9. rib fractures on left - due to fall - healing. 10. chronic anemia - consider iron supplementation. 11. a. fib - rates controlled. Not an anticoagulation candidate. 12. large left-sided renal stone - unchanged in position radiographically. 13. DVT proph - SCDs. 14. chronic systolic CHF - compensated. 15. T2DM - adequate control. 16. h/o TIA - noted. Would hold aspirin due to concern of retroperitoneal bleeding. 17. 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 SCDs for DVT proph. See above. Daughter updated extensively. Discharge planning: other (assisted living)
[2016-08-16] VITALS (10 sets, daily range): BP systolic 88–125; BP diastolic 58–79; PULSE 66–79; TEMP 36.3–36.6; O2SAT 90–100
[2016-08-16] MEDS: TRAMADOL HCL 50 MG TAB PO PRN ×2 (03:47→14:48)
[2016-08-16] MEDS: HEPARIN SOD 5000 UNIT/0.5 ML CARP SQ SCH ×3 (05:42→21:32)
[2016-08-16 07:26] LABS: BASO % 0.2 %; BASO ABS # 0.02 K/uL (0-0.2); COMPLETE YES; EOS % 0.7 %; HEMATOCRIT 30.7 % (37-47); IG% 0.7 %; LYMPH % 13.5 %; LYMPH ABS # 1.69 K/uL (1.2-3.4); MEAN CELL VOLUME 88.5 fL (80-100); MEAN CORPUSCULAR HGB CONC 31.6 g/dl (32-36); MEAN PLATELET VOLUME 8.9 fL (7.4-10.4); MONO % 10.3 %; NEUT % 74.6 %; PLATELET COUNT 372 K/uL (130-400); RED BLOOD COUNT 3.47 M/uL (4.2-5.4); WHITE BLOOD COUNT 12.51 K/uL (4.8-10.8)
[2016-08-16] MEDS: RANITIDINE HCL 150 MG TAB PO SCH (07:49)
[2016-08-16] MEDS: CEPHALEXIN MONOHYDRATE 250 MG CAP PO SCH ×2 (07:49→20:06)
[2016-08-16] MEDS: MULTIVITAMIN TAB PO SCH (07:50)
[2016-08-16] MEDS: ATORVASTATIN 40 MG TAB PO SCH (07:50)
[2016-08-16] MEDS: CEROVITE ADV FORMULA TAB PO SCH (07:50)
[2016-08-16] MEDS: CARVEDILOL 25 MG TAB PO SCH ×2 (07:51→21:33)
[2016-08-16] MEDS: FUROSEMIDE 20 MG TAB PO SCH (07:51)
[2016-08-16 07:57] LABS: BUN/CREATININE RATIO 19.9 (10-20); CALCIUM 8.7 mg/dl (8.5-10.1); CREATININE 2.4 mg/dl (0.60-1.20); POTASSIUM 3.7 mmol/L (3.5-5.1)
[2016-08-16 08:07] LABS: THYROID STIMULATING HORMONE 6.22 uIu/ml (0.300-4.500)
--- NOTE | 2016-08-16 08:12 | DIAGNOSTIC IMAGING REPORT ---
CHEST 2 VIEWS ROUTINE CLINICAL HISTORY: Left pleural effusion COMPARISON STUDY: 08/11/2016 FINDINGS: The heart remains enlarged. There is a persistent left pleural effusion with associated left basilar atelectasis/consolidation. The right lung remains clear. There is no overt failure.[ IMPRESSION: No significant change. Persistent left pleural effusion with associated left lower lobe atelectasis/consolidation. Electronically signed by: Chadwick Morris M.D. 08/16/2016 8:11 AM Dictated Date/Time: 08/16/2016 8:10 AM
[2016-08-16] MEDS: BOOST PLUS VANILLA PO SCH ×2 (08:31)
[2016-08-16] MEDS ORDERED: LEVOTHYROXINE 25 MCG TAB PO ONE (08:39)
--- NOTE | 2016-08-16 09:24 | Urology Consultation ---
History General Date of Service: Aug 16, 2016. Chief Complaint: left back pain Primary Care Physician: Ray Pierson M.D. History of Present Illness 76 yo female admitted to [facility] s/p fall. consulted for persistent 1.8cm proximal left ureteral stone and left perirenal bleed. Previously seen by our service for this issue in May. Unfortunately the pt was not able to f/u since then d/t hospitalizations. She was also noted to have a fungal UTI in May. Now with UC&S growing e coli. She has a hx of elevated Cr. Currently at 2.4. She is pending a chest tube placement today with Dr. Zhu for large left pleural effusion seen on CT. Imaging Imaging: CT Laboratory Last 24 Hours Test 08/16/16 06:40 08/16/16 06:55 White Blood Count 12.51 K/uL Red Blood Count 3.47 M/uL Hemoglobin 9.7 g/dL Hematocrit 30.7 % Mean Corpuscular Volume 88.5 fL Mean Corpuscular Hemoglobin 28.0 pg Mean Corpuscular Hemoglobin Concent 31.6 g/dl Platelet Count 372 K/uL Mean Platelet Volume 8.9 fL Neutrophils (%) (Auto) 74.6 % Lymphocytes (%) (Auto) 13.5 % Monocytes (%) (Auto) 10.3 % Eosinophils (%) (Auto) 0.7 % Basophils (%) (Auto) 0.2 % Neutrophils # (Auto) 9.33 K/uL Lymphocytes # (Auto) 1.69 K/uL Monocytes # (Auto) 1.29 K/uL Eosinophils # (Auto) 0.09 K/uL Basophils # (Auto) 0.02 K/uL RDW Standard Deviation 55.7 fL RDW Coefficient of Variation 17.4 % Immature Granulocyte % (Auto) 0.7 % Immature Granulocyte # (Auto) 0.09 K/uL Sodium Level 135 mmol/L Potassium Level 3.7 mmol/L Chloride Level 100 mmol/L Carbon Dioxide Level 26 mmol/L Anion Gap 9.0 mmol/L Blood Urea Nitrogen 48 mg/dl Creatinine 2.40 mg/dl Est Creatinine Clear Calc Drug Dose 25.5 ml/min Estimated GFR () 21.7 Estimated GFR (Non- 18.7 BUN/Creatinine Ratio 19.9 Random Glucose 132 mg/dl Calcium Level 8.7 mg/dl Thyroid Stimulating Hormone (TSH) 6.220 uIu/ml Problem List Medical Problems: (1) Anemia Status: Acute (2) Contusion of rib on left side Status: Acute (3) Creatinine elevation Status: Acute (4) Visual hallucination Status: Acute Past History A Fib, CVA/TIA/stroke (TIA), deep vein thrombosis, diabetes, high cholesterol, pulmonary embolism, other (lymphedema, obesity, cardiomyopathy) Past Surgical History: cardiac catheterization, THR, TKR Family History Patient reports no known family medical history. Social History Hx Tobacco Use In Past Year?: No Smoking: non-smoker Alcohol: no current use Marital status: Housing status: lives alone Occupation status: retired Immunizations History of Influenza Vaccine: Yes Influenza Vaccine Date: Mar 02, 2013 History of Tetanus Vaccine?: Yes Tetanus Immunization Date: May 02, 2011 History of Pneumococcal: Yes Pneumococcal Date: May 02, 2011 History of Hepatitis B Vaccine: No Allergies Coded Allergies: Morphine (Unverified Allergy, Intermediate, VOMITING, 08/11/16) Adhesives (Verified Allergy, Unknown, RASH, 08/11/16) Digoxin (Unverified Adverse Reaction, Severe, DIGTOXIC, 08/11/16) Medications Home Medications: Home Meds and Scripts Medications Dose Route/Sig Max Daily Dose Days Date Category Dose Instructions Lomotil (Diphenoxylate HCl/Atropine) Tab 1 Tab PO Q6 PRN 08/11/16 Reported Miralax (Polyethylene Glycol 3350) 1 17 Gm PO DAILY 08/11/16 Reported Zoloft (Sertraline HCl) 100 Mg Tab 100 Mg PO DAILY 08/11/16 Reported Zofran Odt (Ondansetron HCl) 4 Mg Tab 4 Mg SL Q6H 08/11/16 Reported Vision Vitamins (Multiple Vitamins W/ Minerals) 1 Tab Tab 1 Tab PO DAILY 07/16/16 Reported Colace (Docusate Sodium) 100 Mg Cap 1 Cap PO DAILY PRN 30 07/16/16 Reported Lasix (Furosemide) 20 Mg Tab 20 Mg PO DAILY 07/16/16 Reported Ultram (Tramadol Hcl) 50 Mg Tab 50 Mg PO BID PRN 06/28/16 Rx TAKE WITH TYLENOL Acetaminophen 500 Mg Cap 500 Mg PO BID PRN 06/19/16 Reported TAKE WITH TRAMADOL Triazolam 0.25 Mg Tab 0.25 Mg PO HS 06/19/16 Reported Ativan (Lorazepam) 1 Mg Tab 1 Mg PO QID PRN 04/04/12 Reported Multivitamin (Multiple Vitamin) 1 Tab Tab 1 Tab PO DAILY 04/04/12 Reported Lipitor (Atorvastatin) 40 Mg Tab 40 Mg PO DAILY 04/04/12 Reported Zantac (Ranitidine Hcl) 150 Mg Tab 150 Mg PO DAILY 04/04/12 Reported Ecotrin Or Generic (Aspirin) 81 Mg Tab 81 Mg PO DAILY 04/04/12 Reported Coreg (Carvedilol) 25 Mg Tab 25 Mg PO BID 04/04/12 Reported Inpatient Medications: Current Inpatient Medications Medications (Trade) Dose Ordered Sig/Daquan Route Start Time Stop Time Status Last Admin Dose Admin Heparin Sodium (Porcine) (Heparin Sq 5000 Unit/0.5ml) 5,000 unit Q8H SQ 08/11/16 22:00 09/10/16 21:59 08/16/16 05:42 5,000 UNIT Acetaminophen (Tylenol Tab) 650 mg Q4H PRN PO 08/11/16 19:00 09/10/16 18:59 08/13/16 02:38 650 MG Ondansetron HCl (Zofran Inj) 4 mg Q6H PRN IV 08/11/16 19:00 09/10/16 18:59 Aspirin (Ecotrin Tab) 81 mg DAILY PO 08/12/16 08:00 09/11/16 08:59 Future Hold 08/15/16 08:18 81 MG Atorvastatin Calcium (Lipitor Tab) 40 mg DAILY PO 08/12/16 08:00 09/11/16 08:59 08/16/16 07:50 40 MG Carvedilol (Coreg Tab) 25 mg BID PO 08/11/16 20:03 09/10/16 20:59 08/16/16 07:51 25 MG Diphenoxylate HCl/ Atropine (Lomotil Tab) 1 tab Q6 PRN PO 08/11/16 19:00 09/10/16 18:59 Docusate Sodium (coLACE CAP) 100 mg DAILY PRN PO 08/11/16 20:15 09/10/16 20:14 08/13/16 07:51 100 MG Furosemide (Lasix Tab) 20 mg DAILY PO 08/12/16 08:00 09/11/16 08:59 08/16/16 07:51 20 MG Multivitamins (Multivitamin Tab) 1 tab DAILY PO 08/12/16 08:00 09/11/16 08:59 08/16/16 07:50 1 TAB Multivitamins/ Minerals (Multivitamin W/ Minerals Tab) 1 tab DAILY PO 08/12/16 08:00 09/11/16 08:59 08/16/16 07:50 1 TAB Ondansetron HCl (Zofran Odt) 4 mg Q6H PRN SL 08/11/16 19:00 09/10/16 18:59 08/13/16 05:05 4 MG Ranitidine HCl (zANTac TAB) 150 mg DAILY PO 08/12/16 08:00 09/11/16 08:59 08/16/16 07:49 150 MG Tramadol HCl (Ultram Tab) 50 mg BID PRN PO 08/11/16 19:00 09/10/16 18:59 08/16/16 03:47 50 MG Miconazole Nitrate (Desenex Powder) 1 appln PRN PRN EXT 08/12/16 09:45 09/11/16 09:44 Sertraline HCl (Zoloft Tab) 50 mg QPM PO 08/12/16 21:00 09/11/16 20:59 08/15/16 20:53 50 MG Enteral Nutritional Formula (Boost Glucose Control) 1 can DAILY@1000 PO 08/14/16 10:00 09/13/16 09:59 Cephalexin Monohydrate (Keflex Cap) 250 mg BID PO 08/14/16 15:30 08/24/16 15:29 08/16/16 07:49 250 MG Levothyroxine Sodium (Synthroid Tab) 25 mcg DAILYBB PO 08/17/16 06:30 09/16/16 06:29 Review of Systems Review of Systems Constitutional: No chills, No fever Eyes: No double vision Neurological: No dizzy Endocrine: No excessive thirst Gastrointestinal: No abdominal pain, No nausea, No vomiting Cardiovascular: No chest pain Respiratory: No shortness of breath Skin: No rash Musculoskeletal: + back pain (left low back ) Female : No blood in urine, No painful urination Physical Exam Vital Signs: Vital Signs Past 12 Hours Date Time Temp Pulse Resp B/P Pulse Ox O2 Delivery O2 Flow Rate FiO2 08/16/16 08:43 Room Air 08/16/16 08:39 Room Air 08/16/16 07:46 36.6 78 16 125/70 90 08/16/16 00:32 36.3 72 18 118/77 90 Room Air 08/16/16 00:15 Room Air Physical Exam: General Appearance: no apparent distress Eyes: bilateral eyes normal inspection ENT: hearing grossly normal Neck: no JVD Respiratory/Chest: no respiratory distress, no accessory muscle use Cardiovascular: no JVD Extremities: normal inspection Neurologic/Psychiatric: alert, normal mood/affect, oriented x 3 Skin: normal color Additional Comments: + left CVA tenderness Assessment & Plan Assessment & Plan A/P: 1.8cm proximal left ureteral stone, UTI, left perirenal hematoma AFVSS. Chest tube placement today with Dr. Zhu as planned. Will obtain fluid Cr at that time to evaluate for urine leak and urothorax. Discussed with Dr. Zhu. If urine is indeed present in the thoracic cavity, it would imply a ruptured fornix with perinephric to peridiaphragmatic drainage of urine and stent placement would be indicated. There is a non-negligeable risk of an inability to place the stent around the patient's longstanding stone due to impaction in which case PCN would be required. If the fluid drained is not consistent with urine will consider short term reimaging to evaluate the degree of response after drainage of pleural fluid and consider the need for acute intervention. Ideally, elective ESWL would allow for fragmentation of stone without the need for attempts at stent placement. Continue abx x 10-14 days for UTI. Thanks for the consult. Will continue to follow along with primary service at this time. Note edited and reviewed by attending. Imaging reviewed and discussed with CHARLES, agree with above. ALEJANDRO
[2016-08-16] MEDS: BOOST GLUCOSE CONTROL PO SCH (09:58)
[2016-08-16] MEDS: DOCUSATE SODIUM 100 MG CAP PO PRN (11:24)
--- NOTE | 2016-08-16 12:25 | SURGICAL CONSULTATION ---
DATE OF CONSULTATION: 08/16/2016 REASON FOR CONSULTATION: Left pleural effusion. HISTORY OF PRESENT ILLNESS: Bonnie Aviles is a delightful a 76-year-old female who has had recurrent UTIs in the last few months. She lives in [facility] and became more confused and was admitted on 08/11/2016. The patient's family states that she has been having visual hallucinations and had had weakness. She has difficulty with her right leg. She apparently fell in June and struck her left chest when she fell out of a car. She has been having pain since that time. She is noted to have a urinary tract infection at this time and is improved with treatment. I was asked to evaluate her because she has a large homogenous left pleural effusion which appears to communicate with the fluid around her left kidney. I have been asked to comment on an intervention to help this. She is quite short of breath with exertion. Her pulse oximetry 90% on room air but that is at rest. PAST MEDICAL HISTORY: 1. Atrial fibrillation. 2. Decreased LV function (ejection fraction about 40-45%). 3. Obesity. 4. Lymphedema. 5. Weight loss (80 pounds in the last 6 months). 6. Dyslipidemia. 7. Deep vein thrombosis. 8. Adult onset diabetes mellitus. 9. Chronic renal insufficiency. 10. History of pulmonary embolism. 11. Cerebrovascular disease with transient ischemic attack. 12. Severe osteoarthritis. PAST SURGICAL HISTORY: 1. 5, para 5, abort 0. 2. Bilateral total knee arthroplasties. 3. Left hip replacement. 4. Cardiac catheterization. MEDICATIONS: 1. Triazolam. 2. Aspirin. 3. Zoloft. 4. Zantac. 5. Zofran. 6. MiraLax. 7. Ativan. 8. Lasix. 9. Lipitor. 10. Coreg. ALLERGIES: 1. MORPHINE (NAUSEA WITH VOMITING). 2. ADHESIVE TAPE CAUSES RASH. 3. DIGOXIN (APPARENTLY HAS DEVELOPED DIGOXIN TOXICITY IN THE PAST). SOCIAL HISTORY: The patient raised her 5 children. 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 She has never smoked, never used alcohol. She retired 7 years ago. She states that she is "gone down the tubes" since her fpc. She is living in assisted living area. She is . She lives in [place]. FAMILY MEDICAL HISTORY: The patient had 5 children, 16 grandchildren and 3 great grandchildren, apparently other than some "minor stuff" they are healthy. There is a family history of cancer. There is a history of pulmonary embolism and deep vein thrombosis in her sister and her mother. REVIEW OF SYSTEMS: The patient complains of fatigue and weakness, had trouble with her right leg. States she has trouble ambulating because of it really does not do much. She denies fevers or chills and had no night sweats. She denies dysuria. She does complain of problems with her lower legs and swelling, although this is improved. She has marked dyspnea on exertion. She denies a productive cough. She denies palpitations (chronic atrial fibrillation) or chest pressure. She denies abdominal pain. She does complain of pain in her knees and her lower legs. She also complains of weakness and inability to walk with that. She does not remember having hallucinations, although her family states she has. She complained of being quite tired. She apparently has also lost 80 pounds in the last 6-12 months. She states she used to weigh as much of 330 pounds and now down to about 245. PHYSICAL EXAMINATION: GENERAL: This is a heavyset woman sitting up in the chair. She is awake and alert. She appears to be quite oriented to me now. HEENT: She appears to have problems with her extraocular movements with her right having a lateral deviation. Pupils appear to be equally responsive. She is missing most of her teeth, but the teeth she has appear to be intact. Her tongue is midline. She has no nasolabial flattening. NECK: Supple. I do not detect carotid bruits. She has no lymphadenopathy or neck vein distention. I detect no tracheal deviation. LUNGS: She has decreased breath sounds on the left and she is moving air well on the right. HEART: An irregular, irregular rhythm in the 80s, upon auscultation of her heart. ABDOMEN: Obese but soft. Upon evaluation of her lower legs, she has evidence of venous insufficiency. EXTREMITIES: She has trace edema, but has marked lipodermatosclerosis of her pretibial and her feet. I had difficulty palpating pulses, but her feet are warm and well perfused and I think this is because of her dermatosclerosis. She has well-healed arthrotomy incisions on both knees. NEUROLOGIC: She is moving all extremities and is awake and alert today with no obvious focal deficits, although her right leg is weak. I am also concerned about her right eye. ASSESSMENT AND PLAN: 1. Large left pleural effusion on CT scan and x-ray. I think this patient is symptomatic and I think that this may be related to her urinary tract infection. I will talk to her daughter who is one of the nursing administration here at the hospital, Maida Aditya and I discussed this by phone and Ms. Burgess is a bit concerned about doing anything more aggressive as her mother has repeatedly stated she does not want this done, we want anything aggressive done; however, I think at this point, I would consider that because both the shortness of breath and the fact this could be a hemothorax or it could be related to her kidney trauma.
[2016-08-16] MEDS ORDERED: LIDOCAINE HCL 1% 20 ML VIAL ONE (14:00)
[2016-08-16] MEDS ORDERED: NURSING VERBAL MED ORDER ONE (14:00)
[2016-08-16] MEDS: ACETAMINOPHEN 325 MG TAB PO PRN ×2 (14:49→18:59)
--- NOTE | 2016-08-16 14:56 | DIAGNOSTIC IMAGING REPORT ---
SINGLE VIEW CHEST CLINICAL HISTORY: Pleural effusion. FINDINGS: An AP, portable, upright chest radiograph is compared to study performed earlier the same day 08/16/2016. Correlation is made with chest CT dated 08/15/2016. The examination is degraded by portable technique, apical lordotic positioning, and patient rotation. The heart is enlarged and there is atherosclerotic calcification of the thoracic aorta. The pulmonary vasculature is noncongested. A pleural drain has been placed at the left lung base. The left pleural effusion has decreased in size. There is a small residual left pleural effusion with left basilar atelectasis. The right lung is. Clear. Chronic interstitial thickening is again noted. There is a tiny left basilar pneumothorax. No right-sided pneumothorax is seen. The skeletal structures are osteopenic. Advanced arthritic change is noted in the shoulders. IMPRESSION: 1. A pleural drain has been placed at the left lung base. There is only a small residual left pleural effusion. 2. A tiny left basilar pneumothorax is identified. 3. The right lung appears clear. 4. Cardiomegaly without radiographic evidence of congestive failure. Electronically signed by: Gee Hamilton M.D. 08/16/2016 2:54 PM Dictated Date/Time: 08/16/2016 2:51 PM
[2016-08-16 15:27] LABS: PLEURAL FLUID TOTAL PROTEIN 3.7 g/dl
--- NOTE | 2016-08-16 15:55 | OPERATIVE REPORT ---
DATE OF OPERATION: 08/16/2016 PREOPERATIVE DIAGNOSIS: Large left pleural effusion. POSTOPERATIVE DIAGNOSIS: Same. PROCEDURE: Insertion of left PleurX catheter. SURGEON: Dr. Zhu. VINYL CUTTER: MARCOS Baker. ANESTHESIA: Local. DESCRIPTION OF PROCEDURE: With the patient in right lateral decubitus position. Left chest prepped, draped in the usual sterile fashion. After an ultrasound had been used to ayah a window in about the seventh interspace. This was done in the posterior axillary line. Skin wheal was raised, 25 gauge needle, 1% Xylocaine after a timeout had ensued. A longer needle was used to anesthetize the deeper subcutaneous tissues, muscle and pleura and we got free flowing fluid, guidewire was inserted through the needle and needle removed. About 10 cm anterior to this, another skin wheal was raised, 25 gauge needle, 1% Xylocaine and 1 cm incisions were made at both skin wheals. A long needle was used to anesthetize subcutaneous tissues between the 2. A tunneler was attached to the PleurX catheter and dragged from the anterior to posterior incision. The tunnel was removed. Introducer sheath was slid over the guidewire posteriorly, the inner cannula into the pleural space and inner cannula guidewire removed and the PleurX catheter inserted through the peel-away sheath was removed. Two separate 3-0 silk sutures used to close the posterior incision. 3-0 silk suture was used to anchor the catheter to the patient's skin anteriorly. About 1500 mL of a clear, yellow fluid was drained. She tolerated it very well. X-ray showed no pneumothorax with good resolution of the pleural fluid. I attest to the content of the Intraoperative Record and any orders documented therein. Any exceptio ns are noted below.
[2016-08-16 16:04] LABS: PLEURAL FLUID APPEARANCE CLEAR; PLEURAL FLUID COLOR PALE YELLOW; PLEURAL FLUID SOURCE LEFT LUNG; PLEURAL FLUID WBC (A) 516 /uL
[2016-08-16] MEDS: SERTRALINE HCL 50 MG TAB PO SCH (20:06)
[2016-08-17] MEDS: HEPARIN SOD 5000 UNIT/0.5 ML CARP SQ SCH ×2 (05:51→16:04)
[2016-08-17] MEDS: LEVOTHYROXINE 25 MCG TAB PO SCH (05:52)
--- NOTE | 2016-08-17 07:20 | DIAGNOSTIC IMAGING REPORT ---
CHEST ONE VIEW PORTABLE CLINICAL HISTORY: pleural effusion COMPARISON STUDY: 08/16/2016 FINDINGS: The heart remains mildly enlarged. A left pleural drainage catheter is again evident. No significant pneumothorax is visualized. Left basal airspace opacities, are likely atelectatic. There is no lobar consolidation.[ IMPRESSION: 1. No pneumothorax identified 2. Nonspecific left basilar opacities, likely atelectatic Electronically signed by: Chadwick Morris M.D. 08/17/2016 7:18 AM Dictated Date/Time: 08/17/2016 7:17 AM
--- NOTE | 2016-08-17 07:44 | Progress Note ---
Subjective Date of Service: late entry for visit Aug 16, 2016. Subjective Pt evaluation today including: conversation w/ patient, conversation w/ family (DAUGHTER AT BEDSIDE), physical exam, chart review, lab review, review of studies, conversation w/ events solutions consultant (CT surgery, urology) Pain: left flank PO Intake: fair seen twice today first visit was prior to PleurX insertion at that time her only complaint was that of flank discomfort - no significant change she had elected to proceed with PleurX insertion saw her a 2nd time later in the day after Chest tube - had chest tube pain but otherwise no dyspnea, chest pain Problem List Medical Problems: (1) Anemia Status: Acute (2) Contusion of rib on left side Status: Acute (3) Creatinine elevation Status: Acute (4) Visual hallucination Status: Acute Review of Systems Constitutional: No chills, No fever Respiratory: No cough Cardiac: No chest pain, No orthopnea Abdomen: No pain Objective Vital Signs Date Time Temp Pulse Resp B/P Pulse Ox O2 Delivery O2 Flow Rate FiO2 08/16/16 23:30 99 08/16/16 23:30 36.4 67 18 122/79 99 Room Air 08/16/16 21:29 78 101/63 08/16/16 19:55 Nasal Cannula 2.0 08/16/16 16:26 66 22 88/58 99 Nasal Cannula 2.0 08/16/16 15:46 36.4 79 16 99/65 100 08/16/16 15:33 99 Nasal Cannula 2.0 08/16/16 15:28 36.4 75 24 92/63 99 Nasal Cannula 2.0 08/16/16 15:00 98 2.0 08/16/16 14:51 36.4 75 20 99/65 08/16/16 08:43 Room Air 08/16/16 08:39 Room Air 08/16/16 07:46 36.6 78 16 125/70 90 Physical Exam General Appearance: no apparent distress, + obese ENT: pharynx normal Neck: no JVD Respiratory/Chest: no respiratory distress, no accessory muscle use, + decreased breath sounds (left base) Cardiovascular: no gallop, + irregularly irregular Abdomen: normal bowel sounds, non tender, soft, no organomegaly Extremities: no pedal edema Neurologic/Psychiatric: alert, oriented x 3 Skin: + pertinent finding (stasis changes b/l legs) Laboratory Results Last 24 Hours Test 08/16/16 06:40 08/16/16 06:55 08/16/16 14:06 08/16/16 14:30 White Blood Count 12.51 K/uL Red Blood Count 3.47 M/uL Hemoglobin 9.7 g/dL Hematocrit 30.7 % Mean Corpuscular Volume 88.5 fL Mean Corpuscular Hemoglobin 28.0 pg Mean Corpuscular Hemoglobin Concent 31.6 g/dl Platelet Count 372 K/uL Mean Platelet Volume 8.9 fL Neutrophils (%) (Auto) 74.6 % Lymphocytes (%) (Auto) 13.5 % Monocytes (%) (Auto) 10.3 % Eosinophils (%) (Auto) 0.7 % Basophils (%) (Auto) 0.2 % Neutrophils # (Auto) 9.33 K/uL Lymphocytes # (Auto) 1.69 K/uL Monocytes # (Auto) 1.29 K/uL Eosinophils # (Auto) 0.09 K/uL Basophils # (Auto) 0.02 K/uL RDW Standard Deviation 55.7 fL RDW Coefficient of Variation 17.4 % Immature Granulocyte % (Auto) 0.7 % Immature Granulocyte # (Auto) 0.09 K/uL Sodium Level 135 mmol/L Potassium Level 3.7 mmol/L Chloride Level 100 mmol/L Carbon Dioxide Level 26 mmol/L Anion Gap 9.0 mmol/L Blood Urea Nitrogen 48 mg/dl Creatinine 2.40 mg/dl Est Creatinine Clear Calc Drug Dose 25.5 ml/min Estimated GFR () 21.7 Estimated GFR (Non- 18.7 BUN/Creatinine Ratio 19.9 Random Glucose 132 mg/dl Calcium Level 8.7 mg/dl Thyroid Stimulating Hormone (TSH) 6.220 uIu/ml Pleural Fluid Source LEFT LUNG Pleural Fluid Color PALE YELLOW Pleural Fluid Appearance CLEAR Pleural Fluid WBC 516 /uL Pleural Fluid RBC < 3000 /uL Pleural Fluid Polynuclear WBCs % 35.0 % Pleural Fluid Mononuclear WBCs % 65.0 % Pleural Fluid Total Protein 3.7 g/dl Pleural Fluid LDH 143 IU Pleural Fluid Glucose 135 mg/dl Pleural Fluid Amylase 15 U/L Pleural Fluid pH 7.44 Test 08/16/16 14:59 08/16/16 21:19 08/17/16 04:44 Lactate Dehydrogenase 115 U/L Bedside Glucose 117 mg/dl Assessment and Plan 76yo female with: 1. sepsis 2nd to UTI - resolved. 2. e. coli UTI - resolved. Day #6/7 of antibiotics. 3. metabolic encephalopathy 2nd to #1 - resolved. 4. left pleural effusion - s/p pleurX catheter insertion today by Dr. Zhu. Initial fluid studies concerning for exudative effusion. Cell counts and gram stain not concerning for infectious process. Agree with fluid Creatinine. Send cytologies. PleurX management per Dr. Zhu. Appreciate his assistance. 5. left sided renal stone - unchanged in position on CT. 6. left sided perinephric and retroperitoneal fluid collection - hemorrhage from trauma/falls? Defer management to urology. 7. protein calorie malnutrition - moderate - boost if desired. 8. CKD stage 4 - creatinine slightly worse than baseline but creatinine today is stable. Repeat BMP in am. 9. early hypothyroidism - TSH x 2 have been high. Reasonable to start synthroid replacement at 25mcg daily. Repeat TSH 6 weeks. 10. rib fractures on left - due to fall - healing. 11. chronic anemia - consider iron supplementation. 12. a. fib - rates controlled. Not an anticoagulation candidate. 13. DVT proph - SCDs. 14. chronic systolic CHF - compensated. 15. T2DM - adequate control. 16. h/o TIA - noted. Would hold aspirin due to concern of retroperitoneal bleeding. 17. 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 SCDs for DVT proph. See above. Daughter updated extensively once again at bedside. Dispo depends on effusion and pleurX catheter. Continued [facility] stay due to: other (pleurX catheter placement) Discharge planning: other (assisted living)
[2016-08-17] MEDS: FUROSEMIDE 20 MG TAB PO SCH (08:16)
[2016-08-17] MEDS: CEPHALEXIN MONOHYDRATE 250 MG CAP PO SCH ×2 (08:16→20:30)
[2016-08-17] MEDS: MULTIVITAMIN TAB PO SCH ×2 (08:16→09:11)
[2016-08-17] MEDS: CARVEDILOL 25 MG TAB PO SCH ×2 (08:17→20:30)
[2016-08-17] MEDS: ATORVASTATIN 40 MG TAB PO SCH (08:17)
[2016-08-17] MEDS: RANITIDINE HCL 150 MG TAB PO SCH (08:17)
[2016-08-17] MEDS: CEROVITE ADV FORMULA TAB PO SCH (08:17)
[2016-08-17 08:18] VITALS: BP 120/76; PULSE 74; TEMP 36.5; O2SAT 97
[2016-08-17 09:35] LABS: BASO % 0.1 %; BASO ABS # 0.01 K/uL (0-0.2); COMPLETE YES; EOS % 0.7 %; HEMATOCRIT 34.7 % (37-47); IG% 0.6 %; LYMPH ABS # 1.63 K/uL (1.2-3.4); MEAN CELL VOLUME 90.6 fL (80-100); MEAN CORPUSCULAR HEMOGLOBIN 28.7 pg (25-34); MEAN CORPUSCULAR HGB CONC 31.7 g/dl (32-36); MONO % 7.3 %; NEUT % 78.3 %; PLATELET COUNT 381 K/uL (130-400); RED BLOOD COUNT 3.83 M/uL (4.2-5.4); WHITE BLOOD COUNT 12.51 K/uL (4.8-10.8)
[2016-08-17] MEDS: BOOST GLUCOSE CONTROL PO SCH (09:38)
[2016-08-17 09:49] LABS: BUN/CREATININE RATIO 22.7 (10-20); CALCIUM 8.7 mg/dl (8.5-10.1); CREATININE 2.2 mg/dl (0.60-1.20); POTASSIUM 3.8 mmol/L (3.5-5.1)
--- NOTE | 2016-08-17 11:14 | SURGERY PROGRESS NOTE ---
DATE: 08/17/2016 DATE: 08/17/2016. Ms. Aviles was seen today on 08/17/2016. We performed a PleurX catheter insertion and drained over 1500 mL of fluid today. This morning she was drained and only got about 50 mL and had some reexpansion pain at the end, although it was very mild. She is on room air. Saturations have gone up from 90 to 99%. Review of the labs showed this is an exudate but the glucose is 135. Her pH 7.44. This would argue against it being an infection, although malignancy is still a possibility. Also, we are still waiting for the fluid creatinine which we had to send out. At this point, Ms. Aviles looks much better to me. I think she can be discharged and we can see her back in the office. I would leave the PleurX in at this point because we still are not quite sure what is going on. I think repeating a CT scan would also be very helpful for her.
[2016-08-17] MEDS ORDERED: LIDOCAINE HCL 2% 2 ML VIAL (20MG/ML) ONE (11:15)
--- NOTE | 2016-08-17 12:08 | Progress Note ---
Subjective Date of Service: Aug 17, 2016. (Zoraida Jeter CRNP) Subjective Pt evaluation today including: conversation w/ patient, chart review, lab review Voiding: no voiding problems 76 yo female with UTI, 1.8cm left ureteral stone, and ? perirenal hematoma vs infection. The pt reports her painf and breathing have improved since PleurX catheter placed yesterday by Dr. Zhu. 1500ml noted to have been drained. Fluid Cr from this source remains pending. She denies other pain today. Denies n/v, f/c, dysuria, or hematuria as well. UC&S growing e coli, resistant to quinolones. Sensitive to Keflex. (Zoraida Jeter CRNP) Problem List Medical Problems: (1) Anemia Status: Acute (2) Contusion of rib on left side Status: Acute (3) Creatinine elevation Status: Acute (4) Visual hallucination Status: Acute (Zoraida Jeter CRNP) Review of Systems Constitutional: No chills, No fever Respiratory: No shortness of breath Cardiac: No chest pain Abdomen: No nausea, No pain Female : No dysuria, No hematuria Heme: No abnormal bleeding/bruising (Zoraida Jeter CRNP) Objective Vital Signs Date Time Temp Pulse Resp B/P Pulse Ox O2 Delivery O2 Flow Rate FiO2 08/17/16 08:20 Room Air 08/17/16 08:18 36.5 74 16 120/76 97 Room Air 08/16/16 23:30 99 08/16/16 23:30 36.4 67 18 122/79 99 Room Air 08/16/16 21:29 78 101/63 08/16/16 19:55 Nasal Cannula 2.0 08/16/16 16:26 66 22 88/58 99 Nasal Cannula 2.0 08/16/16 15:46 36.4 79 16 99/65 100 08/16/16 15:33 99 Nasal Cannula 2.0 08/16/16 15:28 36.4 75 24 92/63 99 Nasal Cannula 2.0 08/16/16 15:00 98 2.0 08/16/16 14:51 36.4 75 20 99/65 (Zoraida Jeter CRNP) Physical Exam General Appearance: no apparent distress Eyes: normal inspection ENT: hearing grossly normal Neck: no JVD Respiratory/Chest: no respiratory distress, no accessory muscle use Cardiovascular: no JVD Extremities: normal inspection Neurologic/Psychiatric: alert, normal mood/affect, oriented x 3 Skin: normal color (Zoraida Jeter CRNP) Laboratory Results Last 24 Hours Test 08/16/16 14:06 08/16/16 14:30 08/16/16 14:59 08/16/16 21:19 Pleural Fluid Source LEFT LUNG Pleural Fluid Color PALE YELLOW Pleural Fluid Appearance CLEAR Pleural Fluid WBC 516 /uL Pleural Fluid RBC < 3000 /uL Pleural Fluid Polynuclear WBCs % 35.0 % Pleural Fluid Mononuclear WBCs % 65.0 % Pleural Fluid Total Protein 3.7 g/dl Pleural Fluid LDH 143 IU Pleural Fluid Glucose 135 mg/dl Pleural Fluid Amylase 15 U/L Pleural Fluid pH 7.44 Lactate Dehydrogenase 115 U/L Bedside Glucose 117 mg/dl Test 08/17/16 07:44 08/17/16 09:17 Bedside Glucose 108 mg/dl White Blood Count 12.51 K/uL Red Blood Count 3.83 M/uL Hemoglobin 11.0 g/dL Hematocrit 34.7 % Mean Corpuscular Volume 90.6 fL Mean Corpuscular Hemoglobin 28.7 pg Mean Corpuscular Hemoglobin Concent 31.7 g/dl Platelet Count 381 K/uL Mean Platelet Volume 9.0 fL Neutrophils (%) (Auto) 78.3 % Lymphocytes (%) (Auto) 13.0 % Monocytes (%) (Auto) 7.3 % Eosinophils (%) (Auto) 0.7 % Basophils (%) (Auto) 0.1 % Neutrophils # (Auto) 9.80 K/uL Lymphocytes # (Auto) 1.63 K/uL Monocytes # (Auto) 0.91 K/uL Eosinophils # (Auto) 0.09 K/uL Basophils # (Auto) 0.01 K/uL RDW Standard Deviation 57.9 fL RDW Coefficient of Variation 17.6 % Immature Granulocyte % (Auto) 0.6 % Immature Granulocyte # (Auto) 0.07 K/uL Sodium Level 136 mmol/L Potassium Level 3.8 mmol/L Chloride Level 100 mmol/L Carbon Dioxide Level 28 mmol/L Anion Gap 8.0 mmol/L Blood Urea Nitrogen 50 mg/dl Creatinine 2.20 mg/dl Est Creatinine Clear Calc Drug Dose 27.8 ml/min Estimated GFR () 24.1 Estimated GFR (Non- 20.8 BUN/Creatinine Ratio 22.7 Random Glucose 110 mg/dl Calcium Level 8.7 mg/dl (Zoraida Jeter CRNP) Assessment and Plan A/P: UTI, 1.8cm proximal left ureteral stone, ? perirenal hematoma vs infection AFVSS. Recommend continuing Keflex for a total of 10 days for UTI. Continued [facility] stay due to: other (pleurX catheter placement) Discharge planning: other (assisted living) (Zoraida Jeter CRNP) drained 90 cc of purulent fluid from back collection will be sent for culture and will send for creatinine and stain will confer about percutaneous drainage of this area and attempted stent placement (Padilla Alexander M.D.)
--- NOTE | 2016-08-17 12:30 | OPERATIVE REPORT ---
DATE OF OPERATION: 08/16/2016 DATE OF PROCEDURE: 08/16/2016. PROCEDURE PERFORMED: Needle drainage of subcutaneous fluid collection. SURGEON: Dr. Padilla Alexander. INDICATIONS: The patient is a 76-year-old female who has been in and out of the hospital with urinary tract infection. She had fallen and had what appeared initially to be a bleed around her kidney as well as a fluid collection in her lung. She improved on antibiotics. She also had a urinary tract infection on initial admission several weeks ago. She had a known obstructing stone for over 4 years which was discovered at the time of a gallbladder operation which had not been treated because it was not causing her pain. The patient was to follow up in our office, but did not follow up because of the snow that we had and was readmitted with increasing confusion and shortness of breath. Yesterday, she had quite a bit of fluid drained from her lung on the left side and has a drain that remains but is not draining a significant amount. I reviewed the CAT scan today. She still has this fluid collection but the collection looked like it was underneath the skin and could be potentially drained percutaneous separate from the lung infection and it is in the retroperitoneal space but looks like it penetrated through the wall of the retroperitoneum into the subcutaneous area. Discussed with the patient potentially trying to drain this area and attempted to define and culture it. The patient agreed. I spoke with both of her daughters. The patient signed a consent discussing the risks including bleeding or introduction of infection into the collection. DESCRIPTION OF THE PROCEDURE: The patient at the bedside was in the sitting position. The area was prepped with Betadine and then she had a drape. I injected the egg-like area that was protruding from her back with 2% lidocaine and then using a 25 gauge needle and then switching to 18 gauge needle and a 35 mL syringe, I was able to after several tries and gong to the hub of the needle sucked back approximately 84 mL of what looked like purulent fluid. This was to be sent for both creatinine and culture. At the end of this, there was a slight amount of blood into the fluid and at this point I had not much more drainage so I stopped and placed a dressing on the patient's wound and taped the wound in place. The patient tolerated the procedure well. The procedure took approximately 5 minutes. She did not appear to have any significant distress or complication during the procedure. The fluid will be sent for culture as previously stated as well as creatinine, although because of purulent it is not clear that this will yield anything, but it is curious as to whether the original source of this fluid is drainage because of obstruction of the stone. I attest to the content of the Intraoperative Record and any orders documented therein. Any exceptio ns are noted below.
[2016-08-17 15:43] VITALS: BP 111/78; PULSE 92; TEMP 36.7; O2SAT 90
[2016-08-17 17:41] LABS: HEMATOCRIT 32.6 % (37-47); MEAN CELL VOLUME 90.1 fL (80-100); MEAN CORPUSCULAR HEMOGLOBIN 28.2 pg (25-34); MEAN CORPUSCULAR HGB CONC 31.3 g/dl (32-36); MEAN PLATELET VOLUME 9.3 fL (7.4-10.4); PLATELET COUNT 368 K/uL (130-400); RED BLOOD COUNT 3.62 M/uL (4.2-5.4); WHITE BLOOD COUNT 13.36 K/uL (4.8-10.8)
[2016-08-17] MEDS: SERTRALINE HCL 50 MG TAB PO SCH (20:31)
[2016-08-17] MEDS: ACETAMINOPHEN 325 MG TAB PO PRN (20:40)
[2016-08-17] MEDS ORDERED: NURSING VERBAL MED ORDER ONE (20:45)
[2016-08-17 23:41] VITALS: BP 111/59; PULSE 69; TEMP 36.4; O2SAT 93
[2016-08-18] VITALS: O2SAT 93
--- NOTE | 2016-08-18 00:39 | Progress Note ---
Subjective Date of Service: late entry for visit Aug 17, 2016. Subjective Pt evaluation today including: conversation w/ patient, conversation w/ family (daughter at bedside), physical exam, chart review, lab review, review of studies (cxr), conversation w/ talent acquisition consultant (urology), review of inpatient medication list Pain: left flank PO Intake: fair Voiding: no voiding problems did well overnight s/p PleurX placement denies dyspnea; exertional SOB is improved no fevers, no chills Problem List Medical Problems: (1) Anemia Status: Acute (2) Contusion of rib on left side Status: Acute (3) Creatinine elevation Status: Acute (4) Visual hallucination Status: Acute Review of Systems Constitutional: No fever Respiratory: No cough Cardiac: No chest pain Abdomen: No pain Objective Vital Signs Date Time Temp Pulse Resp B/P Pulse Ox O2 Delivery O2 Flow Rate FiO2 08/17/16 23:41 36.4 69 18 111/59 93 Room Air 08/17/16 20:00 Room Air 08/17/16 15:43 36.7 92 16 111/78 90 Room Air 08/17/16 12:00 Room Air 08/17/16 08:20 Room Air 08/17/16 08:18 36.5 74 16 120/76 97 Room Air Physical Exam General Appearance: no apparent distress, + obese ENT: pharynx normal Neck: no JVD Respiratory/Chest: no respiratory distress, no accessory muscle use, + decreased breath sounds (left base - but improved), + crackles (fine, left base) Cardiovascular: no gallop, no murmur, + irregularly irregular Abdomen: normal bowel sounds, non tender, soft, no organomegaly Extremities: no pedal edema Neurologic/Psychiatric: alert, oriented x 3 Skin: + pertinent finding (stasis changes b/l shins) Comments: back - left flank swelling unchanged but tender to touch Laboratory Results Last 24 Hours Test 08/17/16 07:44 08/17/16 09:17 08/17/16 12:06 08/17/16 12:10 Bedside Glucose 108 mg/dl 135 mg/dl White Blood Count 12.51 K/uL Red Blood Count 3.83 M/uL Hemoglobin 11.0 g/dL Hematocrit 34.7 % Mean Corpuscular Volume 90.6 fL Mean Corpuscular Hemoglobin 28.7 pg Mean Corpuscular Hemoglobin Concent 31.7 g/dl Platelet Count 381 K/uL Mean Platelet Volume 9.0 fL Neutrophils (%) (Auto) 78.3 % Lymphocytes (%) (Auto) 13.0 % Monocytes (%) (Auto) 7.3 % Eosinophils (%) (Auto) 0.7 % Basophils (%) (Auto) 0.1 % Neutrophils # (Auto) 9.80 K/uL Lymphocytes # (Auto) 1.63 K/uL Monocytes # (Auto) 0.91 K/uL Eosinophils # (Auto) 0.09 K/uL Basophils # (Auto) 0.01 K/uL RDW Standard Deviation 57.9 fL RDW Coefficient of Variation 17.6 % Immature Granulocyte % (Auto) 0.6 % Immature Granulocyte # (Auto) 0.07 K/uL Sodium Level 136 mmol/L Potassium Level 3.8 mmol/L Chloride Level 100 mmol/L Carbon Dioxide Level 28 mmol/L Anion Gap 8.0 mmol/L Blood Urea Nitrogen 50 mg/dl Creatinine 2.20 mg/dl Est Creatinine Clear Calc Drug Dose 27.8 ml/min Estimated GFR () 24.1 Estimated GFR (Non- 20.8 BUN/Creatinine Ratio 22.7 Random Glucose 110 mg/dl Calcium Level 8.7 mg/dl Test 08/17/16 16:29 08/17/16 17:07 08/17/16 20:23 Bedside Glucose 140 mg/dl 128 mg/dl White Blood Count 13.36 K/uL Red Blood Count 3.62 M/uL Hemoglobin 10.2 g/dL Hematocrit 32.6 % Mean Corpuscular Volume 90.1 fL Mean Corpuscular Hemoglobin 28.2 pg Mean Corpuscular Hemoglobin Concent 31.3 g/dl RDW Standard Deviation 57.0 fL RDW Coefficient of Variation 17.4 % Platelet Count 368 K/uL Mean Platelet Volume 9.3 fL Assessment and Plan 76yo female with: 1. sepsis 2nd to UTI - resolved. 2. e. coli UTI - resolved. Day #7/7 of antibiotics, but will leave for now due to issues as noted below. 3. metabolic encephalopathy 2nd to #1 - resolved. 4. left pleural effusion - s/p pleurX catheter insertion, POD #1. Initial fluid studies concerning for exudative effusion. Cell counts and gram stain not concerning for infectious process. Fluid creatinine normal r/o that the effusion was urine-based. Cytology pending. PleurX management per Dr. Zhu. Appreciate his assistance. 5. left sided renal stone - unchanged in position on CT. No Rx at this time. 6. left sided perinephric and retroperitoneal fluid collection - hemorrhage from trauma/falls? Spoke with Dr. Alexander today - he plans I/D of fluid collection on left flank/ back. 7. protein calorie malnutrition - moderate - boost if desired. 8. CKD stage 4 - creatinine stable 2.2; repeat BMP for stability. 9. early hypothyroidism - TSH x 2 have been high. Started synthroid replacement at 25mcg daily. Repeat TSH 6 weeks. 10. rib fractures on left - due to fall - healing. 11. chronic anemia - H/H stable. 12. a. fib - rates controlled. Not an anticoagulation candidate. 13. DVT proph - SCDs. 14. chronic systolic CHF - compensated. 15. T2DM - adequate control. 16. h/o TIA - noted. Would hold aspirin due to concern of retroperitoneal bleeding. 17. 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 SCDs for DVT proph. See above. Daughter updated at bedside. Dispo depends on pleurX catheter and results of I/D of left flank/back fluid collection. Cont PT, OT Continued [facility] stay due to: other (pleurX catheter placement) Discharge planning: other (assisted living)
[2016-08-18] MEDS: HEPARIN SOD 5000 UNIT/0.5 ML CARP SQ SCH ×4 (06:00→21:38)
[2016-08-18] MEDS: LEVOTHYROXINE 25 MCG TAB PO SCH (06:23)
[2016-08-18 07:03] LABS: BASO % 0.2 %; BASO ABS # 0.02 K/uL (0-0.2); COMPLETE YES; EOS % 1.3 %; IG% 0.8 %; LYMPH % 15.2 %; LYMPH ABS # 1.58 K/uL (1.2-3.4); MEAN CELL VOLUME 88.4 fL (80-100); MEAN CORPUSCULAR HEMOGLOBIN 27.6 pg (25-34); MEAN CORPUSCULAR HGB CONC 31.3 g/dl (32-36); MEAN PLATELET VOLUME 8.4 fL (7.4-10.4); MONO % 8.6 %; NEUT % 73.9 %; PLATELET COUNT 335 K/uL (130-400); RED BLOOD COUNT 3.62 M/uL (4.2-5.4); WHITE BLOOD COUNT 10.38 K/uL (4.8-10.8)
[2016-08-18] MEDS: CEROVITE ADV FORMULA TAB PO SCH (07:30)
[2016-08-18] MEDS: ATORVASTATIN 40 MG TAB PO SCH (07:30)
[2016-08-18] MEDS: CARVEDILOL 25 MG TAB PO SCH ×2 (07:31→19:56)
[2016-08-18] MEDS: MULTIVITAMIN TAB PO SCH (07:31)
[2016-08-18] MEDS: CEPHALEXIN MONOHYDRATE 250 MG CAP PO SCH ×2 (07:31→19:56)
[2016-08-18] MEDS: FUROSEMIDE 20 MG TAB PO SCH (07:31)
[2016-08-18 07:32] LABS: BUN/CREATININE RATIO 22.3 (10-20); CALCIUM 8.4 mg/dl (8.5-10.1); POTASSIUM 3.7 mmol/L (3.5-5.1)
[2016-08-18 07:33] VITALS: BP 125/74; PULSE 70; TEMP 36.4; O2SAT 97
[2016-08-18] MEDS: ACETAMINOPHEN 325 MG TAB PO PRN (07:36)
[2016-08-18] MEDS: TRAMADOL HCL 50 MG TAB PO PRN ×2 (07:36→21:05)
[2016-08-18 07:45] VITALS: O2SAT 97
[2016-08-18] MEDS ORDERED: FENTANYL CITRATE INJ 50 MCG/1 ML 2 ML VIAL IV ONE (08:08)
--- NOTE | 2016-08-18 09:03 | Surgery Progress Note ---
Subjective Date of Service: Aug 18, 2016. Pt. says her breathing is better since pleurx placed. Objective Vitals Date Time Temp Pulse Resp B/P Pulse Ox O2 Delivery O2 Flow Rate FiO2 08/18/16 07:45 97 Room Air 08/18/16 07:33 36.4 70 16 125/74 97 Room Air 08/18/16 00:00 93 Room Air 08/17/16 23:41 36.4 69 18 111/59 93 Room Air 08/17/16 20:00 Room Air 08/17/16 15:43 36.7 92 16 111/78 90 Room Air 08/17/16 12:00 Room Air Physical Exam General: + well developed, + well nourished, No distress CV: + RRR Pulmonary: + pertinent finding (slight decrease at left base), No accessory muscle use, No respiratory distress Neurologic: + alert & oriented x 3 Drains / Tubes pleurex (drained for about 50 cc this am ) Assessment & Plan 76 year old female with left pleural effusion -pleurex placed on (08/16/16) -cytology (-) for malignancy -cultures (-) -pleural fluid Cr. is pending -pt. will continue to have pleurex drained daily -we will see her in office next week with repeat CXR--if drainage remains low will consider removing it at that time -discussed with daughter -discussed with primary service
--- NOTE | 2016-08-18 09:11 | DIAGNOSTIC IMAGING REPORT ---
ABDOMEN AND PELVIS CT WITHOUT CONTRAST CT DOSE: 2088.79 mGycm HISTORY: Abscess. Infection. abscess TECHNIQUE: Multiaxial CT images of the abdomen and pelvis were performed without contrast. COMPARISON STUDY: 08/15/2016 FINDINGS: Interval placement of a drainage catheter left lung base. Improved aeration left lung base with a considerable decrease in volume of a left effusion. The calculus of the proximal left ureter is unchanged. Mild left hydronephrosis is similar. Stable appearance to left kidney as well as to the large collection of the perirenal and posterior abdominal wall regions. It is unchanged in size, density, configuration and extent No significant new or interval findings. IMPRESSION: 1. Improved aeration left base post placement of a left basilar drainage catheter. 2. Unchanging left perinephric and left posterior abdominal wall collection. 3. Unchanging proximal left ureteral calculus with mild left renal hydronephrosis. Electronically signed by: Georges Conway M.D. 08/18/2016 9:10 AM Dictated Date/Time: 08/18/2016 9:01 AM
[2016-08-18] MEDS: BOOST GLUCOSE CONTROL PO SCH (10:30)
--- NOTE | 2016-08-18 12:36 | Progress Note ---
Subjective Date of Service: Aug 18, 2016. Subjective Pt evaluation today including: conversation w/ patient, conversation w/ family , physical exam, chart review, lab review, conversation w/ treasury management sales consultant Pain: patient had pain in left side while lying . Not painful sitting Problem List Medical Problems: (1) Anemia Status: Acute (2) Contusion of rib on left side Status: Acute (3) Creatinine elevation Status: Acute (4) Visual hallucination Status: Acute Objective Vital Signs Date Time Temp Pulse Resp B/P Pulse Ox O2 Delivery O2 Flow Rate FiO2 08/18/16 07:45 97 Room Air 08/18/16 07:33 36.4 70 16 125/74 97 Room Air 08/18/16 00:00 93 Room Air 08/17/16 23:41 36.4 69 18 111/59 93 Room Air 08/17/16 20:00 Room Air 08/17/16 15:43 36.7 92 16 111/78 90 Room Air Physical Exam Comments: fluid from yesterday showed many wbc repeat ct shows improvement of pleural effusion but not of flan collection Laboratory Results Last 24 Hours Test 08/17/16 16:29 08/17/16 17:07 08/17/16 20:23 08/18/16 06:57 Bedside Glucose 140 mg/dl 128 mg/dl White Blood Count 13.36 K/uL 10.38 K/uL Red Blood Count 3.62 M/uL 3.62 M/uL Hemoglobin 10.2 g/dL 10.0 g/dL Hematocrit 32.6 % 32.0 % Mean Corpuscular Volume 90.1 fL 88.4 fL Mean Corpuscular Hemoglobin 28.2 pg 27.6 pg Mean Corpuscular Hemoglobin Concent 31.3 g/dl 31.3 g/dl RDW Standard Deviation 57.0 fL 56.2 fL RDW Coefficient of Variation 17.4 % 17.4 % Platelet Count 368 K/uL 335 K/uL Mean Platelet Volume 9.3 fL 8.4 fL Neutrophils (%) (Auto) 73.9 % Lymphocytes (%) (Auto) 15.2 % Monocytes (%) (Auto) 8.6 % Eosinophils (%) (Auto) 1.3 % Basophils (%) (Auto) 0.2 % Neutrophils # (Auto) 7.68 K/uL Lymphocytes # (Auto) 1.58 K/uL Monocytes # (Auto) 0.89 K/uL Eosinophils # (Auto) 0.13 K/uL Basophils # (Auto) 0.02 K/uL Immature Granulocyte % (Auto) 0.8 % Immature Granulocyte # (Auto) 0.08 K/uL Sodium Level 139 mmol/L Potassium Level 3.7 mmol/L Chloride Level 102 mmol/L Carbon Dioxide Level 29 mmol/L Anion Gap 8.0 mmol/L Blood Urea Nitrogen 45 mg/dl Creatinine 2.00 mg/dl Est Creatinine Clear Calc Drug Dose 30.6 ml/min Estimated GFR () 27.0 Estimated GFR (Non- 23.3 BUN/Creatinine Ratio 22.3 Random Glucose 122 mg/dl Calcium Level 8.4 mg/dl Test 08/18/16 08:17 Bedside Glucose 131 mg/dl Assessment and Plan Discussed with pt ,radiology and daughter The retroperitoneum needs to be drained and pt does not want open drainage if it can be avoided Radiology has agreed to place drain today but I have explained to the pt and the pts daughter that she may need open drainage if the collection persists She also is not a good candidate for perc nephrostomy given the tube will go through collection to get into kidney ,May be difficult to get stent in as stone has been there for over 4 years . This will need to be addressed. As long as pt seems to be stable and improving as her wbc is now nl and vitals remain stable will address collection first Continued [facility] stay due to: fever, multiple IV medications needed, other ( pleurX catheter placement) Discharge planning: other (assisted living)
[2016-08-18] MEDS ORDERED: LIDOCAINE HCL 1% 20 ML VIAL ONE (14:21)
[2016-08-18] MEDS ORDERED: FENTANYL CITRATE INJ 50 MCG/1 ML 2 ML VIAL IV SCH (15:30)
--- NOTE | 2016-08-18 15:42 | DIAGNOSTIC IMAGING REPORT ---
CT GUIDED DRAINAGE OF LEFT FLANK/RETROPERITONEAL ABSCESS CT DOSE: 1878.59 mGycm CLINICAL HISTORY: Retroperitoneal abscess. COMPARISON STUDY: CT of the abdomen and pelvis August 18, 2016. PROCEDURE: The procedure, risks and benefits were discussed with the patient including the risk of bleeding, infection and injury to adjacent structures. The patient agreed to the procedure and informed written consent was obtained. The procedure was performed by Dr. Novak following a timeout. The patient was placed in the right lateral decubitus position and unenhanced images through the upper to mid abdomen were obtained which again demonstrated the left retroperitoneal/left flank abscess with multiple components. The skin overlying this abscess was prepped and draped in sterile fashion and local anesthesia was achieved with 1% lidocaine. Using trocar technique, a 10 Turkmen locking pigtail catheter was inserted into the deep component of this collection. There was immediate return of fluid. A total of 225 cc purulent fluid was aspirated. Fluid was sent to laboratory for analysis. The catheter was secured in position. Post procedure CT demonstrated marked decrease in size of the fluid collection. The patient tolerated the procedure well and no immediate complications were evident. IMPRESSION: CT-guided placement of a 10 Turkmen locking pigtail catheter within the left flank/retroperitoneal abscess. Aspiration of 225 cc of purulent fluid sent to laboratory for analysis. Electronically signed by: Elian Novak M.D. 08/18/2016 3:41 PM Dictated Date/Time: 08/18/2016 3:36 PM
[2016-08-18] MEDS ORDERED: NURSING VERBAL MED ORDER ONE (15:45)
[2016-08-18 16:04] VITALS: BP 128/84; PULSE 69; TEMP 36.7; O2SAT 95
[2016-08-18 18:27] LABS: BASO % 0.2 %; BASO ABS # 0.02 K/uL (0-0.2); COMPLETE YES; EOS % 1.5 %; HEMATOCRIT 32.4 % (37-47); IG% 0.8 %; LYMPH % 16.4 %; LYMPH ABS # 1.75 K/uL (1.2-3.4); MEAN CELL VOLUME 88.5 fL (80-100); MEAN CORPUSCULAR HEMOGLOBIN 28.1 pg (25-34); MEAN CORPUSCULAR HGB CONC 31.8 g/dl (32-36); MEAN PLATELET VOLUME 8.7 fL (7.4-10.4); NEUT % 72.1 %; PLATELET COUNT 331 K/uL (130-400); RED BLOOD COUNT 3.66 M/uL (4.2-5.4); WHITE BLOOD COUNT 10.69 K/uL (4.8-10.8)
[2016-08-18 19:54] VITALS: BP 123/76; PULSE 79
[2016-08-18] MEDS: RANITIDINE HCL 150 MG TAB PO SCH (19:56)
[2016-08-18] MEDS: SERTRALINE HCL 50 MG TAB PO SCH (19:56)
[2016-08-19 00:10] VITALS: BP 123/73; PULSE 70; TEMP 36.4; O2SAT 94
--- NOTE | 2016-08-19 06:16 | Progress Note ---
Subjective Date of Service: late entry for visit August 18, 2016. Subjective Pt evaluation today including: conversation w/ patient, conversation w/ family (2 daughters at bedside), physical exam, chart review, lab review, review of studies (CT abd/pelvis), conversation w/ business transformation consultant (urology, CT surgery, radiology), review of inpatient medication list Pain: left flank where drain was placed PO Intake: fair Voiding: no voiding problems breathing markedly improved; denies any sob/dyspnea main complaint is that of left flank pain; current tramadol dose helps but not optimal multiple questions from daughters Problem List Medical Problems: (1) Anemia Status: Acute (2) Contusion of rib on left side Status: Acute (3) Creatinine elevation Status: Acute (4) Visual hallucination Status: Acute Review of Systems Constitutional: No chills, No fever Respiratory: No cough, No dyspnea on exertion, No shortness of breath Cardiac: No chest pain, No orthopnea Abdomen: + pain, + see HPI, No nausea, No vomiting Objective Vital Signs Date Time Temp Pulse Resp B/P Pulse Ox O2 Delivery O2 Flow Rate FiO2 08/19/16 02:24 Room Air 08/19/16 00:10 36.4 70 18 123/73 94 Room Air 08/18/16 19:54 79 123/76 08/18/16 16:04 36.7 69 18 128/84 95 Room Air 08/18/16 16:00 Room Air 08/18/16 07:45 97 Room Air 08/18/16 07:33 36.4 70 16 125/74 97 Room Air Physical Exam General Appearance: no apparent distress, + obese ENT: pharynx normal Neck: no JVD Respiratory/Chest: lungs clear, no respiratory distress, no accessory muscle use, + rales (left base - much better today) Cardiovascular: no gallop, no murmur, + irregularly irregular Abdomen: normal bowel sounds, non tender, soft, no organomegaly Extremities: + pedal edema (trace b/l ) Neurologic/Psychiatric: alert, oriented x 3 Skin: + pertinent finding (stasis changes b/l shins) Comments: back - pleurX catheter in place, left; drain in place, left flank - drain has purulent material in the tubing Laboratory Results Last 24 Hours Test 08/18/16 06:57 08/18/16 08:17 08/18/16 18:19 08/19/16 04:44 White Blood Count 10.38 K/uL 10.69 K/uL Red Blood Count 3.62 M/uL 3.66 M/uL Hemoglobin 10.0 g/dL 10.3 g/dL Hematocrit 32.0 % 32.4 % Mean Corpuscular Volume 88.4 fL 88.5 fL Mean Corpuscular Hemoglobin 27.6 pg 28.1 pg Mean Corpuscular Hemoglobin Concent 31.3 g/dl 31.8 g/dl Platelet Count 335 K/uL 331 K/uL Mean Platelet Volume 8.4 fL 8.7 fL Neutrophils (%) (Auto) 73.9 % 72.1 % Lymphocytes (%) (Auto) 15.2 % 16.4 % Monocytes (%) (Auto) 8.6 % 9.0 % Eosinophils (%) (Auto) 1.3 % 1.5 % Basophils (%) (Auto) 0.2 % 0.2 % Neutrophils # (Auto) 7.68 K/uL 7.71 K/uL Lymphocytes # (Auto) 1.58 K/uL 1.75 K/uL Monocytes # (Auto) 0.89 K/uL 0.96 K/uL Eosinophils # (Auto) 0.13 K/uL 0.16 K/uL Basophils # (Auto) 0.02 K/uL 0.02 K/uL RDW Standard Deviation 56.2 fL 56.2 fL RDW Coefficient of Variation 17.4 % 17.5 % Immature Granulocyte % (Auto) 0.8 % 0.8 % Immature Granulocyte # (Auto) 0.08 K/uL 0.09 K/uL Sodium Level 139 mmol/L Potassium Level 3.7 mmol/L Chloride Level 102 mmol/L Carbon Dioxide Level 29 mmol/L Anion Gap 8.0 mmol/L Blood Urea Nitrogen 45 mg/dl Creatinine 2.00 mg/dl Est Creatinine Clear Calc Drug Dose 30.6 ml/min Estimated GFR () 27.0 Estimated GFR (Non- 23.3 BUN/Creatinine Ratio 22.3 Random Glucose 122 mg/dl Calcium Level 8.4 mg/dl Bedside Glucose 131 mg/dl Assessment and Plan 76yo female with: 1. sepsis 2nd to UTI and abscess of left retroperitoneal space - sepsis resolved. 2. e. coli UTI - resolved. 3. metabolic encephalopathy 2nd to #1 - resolved. 4. left pleural effusion - s/p pleurX catheter insertion, POD #2. Initial fluid studies concerning for exudative effusion. Cell counts and gram stain not concerning for infectious process. Fluid creatinine normal ruling out that the effusion was urine-based. Cytology negative. PleurX management per Dr. Zhu. Appreciate his assistance. To be removed next week but for now daily drain. 5. left sided renal stone - unchanged in position on CT. No Rx at this time but needs attention in near future per urology. 6. left sided perinephric and retroperitoneal fluid collection - s/p I/D yesterday by Dr. Alexander yielding copious pus. Growing GNR - remains on keflex. Had drain placed by radiology today with copious pus also removed. Await culture. 7. protein calorie malnutrition - moderate - boost if desired. 8. CKD stage 4 - creatinine stable 2 today; repeat BMP am for stability. 9. early hypothyroidism - TSH x 2 have been high. Started synthroid replacement at 25mcg daily. Repeat TSH 6 weeks. 10. rib fractures on left - due to fall - healing. 11. chronic anemia - H/H stable. 12. a. fib - rates controlled. Not an anticoagulation candidate. 13. DVT proph - SCDs. 14. chronic systolic CHF - compensated. 15. T2DM - adequate control. d/c FSBS. 16. h/o TIA - noted. Would hold aspirin due to concern of retroperitoneal bleeding. 17. 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 SCDs for DVT proph. See above. Daughters updated at bedside. Increase tramadol to 75mg q6h prn. Continued [facility] stay due to: fever, other (pleurX catheter placement, drain placement) Discharge planning: other (assisted living)
[2016-08-19] MEDS: HEPARIN SOD 5000 UNIT/0.5 ML CARP SQ SCH ×2 (06:25→14:31)
[2016-08-19] MEDS: LEVOTHYROXINE 25 MCG TAB PO SCH (06:25)
--- NOTE | 2016-08-19 07:16 | Surgery Progress Note ---
Subjective Date of Service: Aug 19, 2016. Pt. state she feels good. No SOB. Objective Vitals Date Time Temp Pulse Resp B/P Pulse Ox O2 Delivery O2 Flow Rate FiO2 08/19/16 02:24 Room Air 08/19/16 00:10 36.4 70 18 123/73 94 Room Air 08/18/16 19:54 79 123/76 08/18/16 16:04 36.7 69 18 128/84 95 Room Air 08/18/16 16:00 Room Air 08/18/16 07:45 97 Room Air 08/18/16 07:33 36.4 70 16 125/74 97 Room Air Physical Exam General: + well developed, + well nourished CV: + RRR Pulmonary: + lungs clear, No accessory muscle use, No respiratory distress Drains / Tubes pleurex (75 cc drained this am ) Assessment & Plan 76 year old female with left pleural effusion -pleurex placed on (08/16/16) -cytology (-) for malignancy -cultures remain (-) -pleural fluid Cr. is pending -pt. will continue to have pleurex drained daily -we will see her in office next week with repeat CXR--if drainage remains low will consider removing it at that time -discussed with daughter -discussed with primary service
[2016-08-19 07:24] LABS: BASO % 0.1 %; BASO ABS # 0.01 K/uL (0-0.2); COMPLETE YES; EOS % 1.9 %; HEMATOCRIT 32.3 % (37-47); LYMPH % 25.6 %; LYMPH ABS # 1.99 K/uL (1.2-3.4); MEAN CELL VOLUME 89.7 fL (80-100); MEAN CORPUSCULAR HEMOGLOBIN 28.1 pg (25-34); MEAN CORPUSCULAR HGB CONC 31.3 g/dl (32-36); MEAN PLATELET VOLUME 8.7 fL (7.4-10.4); MONO % 8.6 %; NEUT % 62.8 %; PLATELET COUNT 346 K/uL (130-400); WHITE BLOOD COUNT 7.77 K/uL (4.8-10.8)
[2016-08-19 07:48] LABS: BUN/CREATININE RATIO 23.4 (10-20); CALCIUM 8.3 mg/dl (8.5-10.1); CREATININE 1.8 mg/dl (0.60-1.20); POTASSIUM 3.6 mmol/L (3.5-5.1)
[2016-08-19] MEDS: CEPHALEXIN MONOHYDRATE 250 MG CAP PO SCH ×2 (07:52→21:39)
[2016-08-19] MEDS: FUROSEMIDE 20 MG TAB PO SCH (07:52)
[2016-08-19] MEDS: CEROVITE ADV FORMULA TAB PO SCH (07:52)
[2016-08-19] MEDS: ATORVASTATIN 40 MG TAB PO SCH (07:52)
[2016-08-19] MEDS: CARVEDILOL 25 MG TAB PO SCH ×2 (07:53→20:00)
[2016-08-19] MEDS: MULTIVITAMIN TAB PO SCH (07:55)
[2016-08-19 07:59] VITALS: BP 119/42; PULSE 73; TEMP 36; O2SAT 95
[2016-08-19] MEDS: TRAMADOL HCL 50 MG TAB PO PRN (08:25)
[2016-08-19] MEDS: BOOST GLUCOSE CONTROL PO SCH (10:00)
--- NOTE | 2016-08-19 13:17 | Progress Note ---
Subjective Date of Service: Aug 19, 2016. Subjective Pt evaluation today including: conversation w/ patient, conversation w/ family , physical exam, chart review, lab review, review of studies, conversation w/ consumer services consultant Pain: none PO Intake: improved pt has had appetite for first time in awhile Problem List Medical Problems: (1) Anemia Status: Acute (2) Contusion of rib on left side Status: Acute (3) Creatinine elevation Status: Acute (4) Visual hallucination Status: Acute Objective Vital Signs Date Time Temp Pulse Resp B/P Pulse Ox O2 Delivery O2 Flow Rate FiO2 08/19/16 08:00 Room Air 08/19/16 07:59 36.0 73 18 119/42 95 Room Air 08/19/16 02:24 Room Air 08/19/16 00:10 36.4 70 18 123/73 94 Room Air 08/18/16 19:54 79 123/76 08/18/16 16:04 36.7 69 18 128/84 95 Room Air 08/18/16 16:00 Room Air Physical Exam Comments: 400 cc pus and serosanguinus fluid has drained wbc nl culture shows sensitivity to ceftriaxone ecoli Laboratory Results Last 24 Hours Test 08/18/16 18:19 08/19/16 07:10 White Blood Count 10.69 K/uL 7.77 K/uL Red Blood Count 3.66 M/uL 3.60 M/uL Hemoglobin 10.3 g/dL 10.1 g/dL Hematocrit 32.4 % 32.3 % Mean Corpuscular Volume 88.5 fL 89.7 fL Mean Corpuscular Hemoglobin 28.1 pg 28.1 pg Mean Corpuscular Hemoglobin Concent 31.8 g/dl 31.3 g/dl Platelet Count 331 K/uL 346 K/uL Mean Platelet Volume 8.7 fL 8.7 fL Neutrophils (%) (Auto) 72.1 % 62.8 % Lymphocytes (%) (Auto) 16.4 % 25.6 % Monocytes (%) (Auto) 9.0 % 8.6 % Eosinophils (%) (Auto) 1.5 % 1.9 % Basophils (%) (Auto) 0.2 % 0.1 % Neutrophils # (Auto) 7.71 K/uL 4.87 K/uL Lymphocytes # (Auto) 1.75 K/uL 1.99 K/uL Monocytes # (Auto) 0.96 K/uL 0.67 K/uL Eosinophils # (Auto) 0.16 K/uL 0.15 K/uL Basophils # (Auto) 0.02 K/uL 0.01 K/uL RDW Standard Deviation 56.2 fL 57.3 fL RDW Coefficient of Variation 17.5 % 17.5 % Immature Granulocyte % (Auto) 0.8 % 1.0 % Immature Granulocyte # (Auto) 0.09 K/uL 0.08 K/uL Sodium Level 140 mmol/L Potassium Level 3.6 mmol/L Chloride Level 103 mmol/L Carbon Dioxide Level 31 mmol/L Anion Gap 6.0 mmol/L Blood Urea Nitrogen 42 mg/dl Creatinine 1.80 mg/dl Est Creatinine Clear Calc Drug Dose 34.0 ml/min Estimated GFR () 30.7 Estimated GFR (Non- 26.5 BUN/Creatinine Ratio 23.4 Random Glucose 84 mg/dl Calcium Level 8.3 mg/dl Assessment and Plan Was present when radiology placed drain and 270 cc pus drained ongoing drainage discussed repeat imaging and addressing the ureteral stone as the retroperitoneal infection stabilizes Continued [facility] stay due to: multiple IV medications needed, other (pleurX catheter placement, drain placement) Discharge planning: other (assisted living)
--- NOTE | 2016-08-19 14:02 | DIAGNOSTIC IMAGING REPORT ---
BILATERAL LOWER EXTREMITY VENOUS DOPPLER CLINICAL HISTORY: History of deep venous thrombus. Right leg edema. COMPARISON STUDY: Bilateral lower extremity venous Doppler April 04, 2012. TECHNIQUE: Sonography of the deep venous system of the bilateral lower extremities was performed. Compression and augmentation were evaluated. FINDINGS: This exam was technically difficult due to suboptimal penetration. There was linear echogenic material within the right greater saphenous vein that favors chronic thrombus. There is nonocclusive thrombus within the right popliteal vein that is age indeterminate. There is also nonocclusive deep venous thrombus within the left common femoral and superficial femoral veins. The bilateral calf vessels are not well visualized on this exam due to suboptimal penetration. IMPRESSION: 1. Deep venous thrombus within the left common femoral, left superficial femoral and right popliteal veins. This thrombus is age indeterminate. 2. Largely obscured calf vessels due to suboptimal penetration. Electronically signed by: Elian Novak M.D. 08/19/2016 2:01 PM Dictated Date/Time: 08/19/2016 1:57 PM
[2016-08-19 15:06] VITALS: BP 143/80; PULSE 67; TEMP 36.4; O2SAT 100
[2016-08-19 15:55] VITALS: O2SAT 100
[2016-08-19] MEDS: HEPARIN 25,000 UNIT/500ML D5W 500 ML IV PRN (16:23)
[2016-08-19 21:40] VITALS: BP 114/69; PULSE 56
[2016-08-19] MEDS: RANITIDINE HCL 150 MG TAB PO SCH (21:40)
[2016-08-19] MEDS: SERTRALINE HCL 50 MG TAB PO SCH (21:40)
[2016-08-19 23:40] VITALS: BP 137/82; PULSE 70; TEMP 36.4; O2SAT 97
[2016-08-20] MEDS: LEVOTHYROXINE 25 MCG TAB PO SCH (05:34)
[2016-08-20] MEDS: TRAMADOL HCL 50 MG TAB PO PRN ×2 (05:34→18:32)
[2016-08-20] MEDS: DOCUSATE SODIUM 100 MG CAP PO PRN (05:34)
[2016-08-20 06:46] LABS: BASO % 0.3 %; BASO ABS # 0.03 K/uL (0-0.2); COMPLETE YES; EOS % 1.8 %; HEMATOCRIT 33.1 % (37-47); IG% 1.4 %; LYMPH % 23.7 %; LYMPH ABS # 2.23 K/uL (1.2-3.4); MEAN CELL VOLUME 90.9 fL (80-100); MEAN CORPUSCULAR HGB CONC 30.8 g/dl (32-36); MEAN PLATELET VOLUME 9.1 fL (7.4-10.4); MONO % 9.3 %; NEUT % 63.5 %; PLATELET COUNT 354 K/uL (130-400); RED BLOOD COUNT 3.64 M/uL (4.2-5.4); WHITE BLOOD COUNT 9.42 K/uL (4.8-10.8)
[2016-08-20 07:01] LABS: PARTIAL THROMBOPLASTIN RATIO 2.2
[2016-08-20 07:16] LABS: BUN/CREATININE RATIO 23.1 (10-20); CALCIUM 8.6 mg/dl (8.5-10.1); CREATININE 1.5 mg/dl (0.60-1.20); POTASSIUM 3.6 mmol/L (3.5-5.1)
[2016-08-20] MEDS: HEPARIN 25,000 UNIT/500ML D5W 500 ML IV PRN ×2 (07:18→07:31)
[2016-08-20 07:20] VITALS: BP 114/74; PULSE 66; TEMP 36.4; O2SAT 97
[2016-08-20] MEDS: MULTIVITAMIN TAB PO SCH (07:28)
[2016-08-20] MEDS: CARVEDILOL 25 MG TAB PO SCH ×2 (07:28→20:45)
[2016-08-20] MEDS: FUROSEMIDE 20 MG TAB PO SCH (07:28)
[2016-08-20] MEDS: CEROVITE ADV FORMULA TAB PO SCH (07:29)
[2016-08-20] MEDS: ATORVASTATIN 40 MG TAB PO SCH (07:29)
[2016-08-20] MEDS: CEPHALEXIN MONOHYDRATE 250 MG CAP PO SCH ×2 (07:29→20:46)
--- NOTE | 2016-08-20 07:34 | Surgery Progress Note ---
Subjective Date of Service: Aug 20, 2016. No SOB reported. Objective Vitals Date Time Temp Pulse Resp B/P Pulse Ox O2 Delivery O2 Flow Rate FiO2 08/20/16 07:20 36.4 66 18 114/74 97 Room Air 08/20/16 00:37 Room Air 08/19/16 23:40 36.4 70 18 137/82 97 Room Air 08/19/16 21:40 56 114/69 08/19/16 15:55 100 Room Air 08/19/16 15:06 36.4 67 18 143/80 100 Room Air 08/19/16 08:00 Room Air 08/19/16 07:59 36.0 73 18 119/42 95 Room Air Physical Exam General: + well developed, + well nourished, No distress CV: + RRR Pulmonary: + pertinent finding (slight decreased BS at bases), No accessory muscle use, No respiratory distress Neurologic: + alert & oriented x 3 Drains / Tubes pleurex (left sided; drained for 50 cc this am ) Assessment & Plan 76 year old female with left pleural effusion -pleurex placed on (08/16/16) -cytology (-) for malignancy -cultures remain (-) to date -pleural fluid Cr. is still pending -pt. will continue to have pleurex drained daily
--- NOTE | 2016-08-20 07:56 | Progress Note ---
Subjective Date of Service: LATE ENTRY for visit on Aug 19, 2016. Subjective Pt evaluation today including: conversation w/ patient, conversation w/ family (2 daughters at bedside), physical exam, chart review, lab review, review of studies (dopplers of legs), conversation w/ [employer] consultant (urology, CT surgery), review of inpatient medication list Pain: left flank but MUCH improved; 1 hour of left sided CP this AM PO Intake: much improved Voiding: no voiding problems With respect to chest pain this am - patient reports it occurred at rest. located over the left breast. did not radiate. pleuritic in nature. no BARBARA symptoms, burping, etc. self-resolved. felt different than pain related to pleurX catheter. drain from retroperitoneal space continues to drain serosanguinous fluid. overall feels better in comparison to earlier this week. Problem List Medical Problems: (1) Anemia Status: Acute (2) Contusion of rib on left side Status: Acute (3) Creatinine elevation Status: Acute (4) Visual hallucination Status: Acute Review of Systems Constitutional: No chills, No fever Respiratory: No cough, No dyspnea on exertion, No shortness of breath, No sputum, No wheezing Cardiac: + chest pain, No PND, No edema, No orthopnea Abdomen: No pain Objective Vital Signs Date Time Temp Pulse Resp B/P Pulse Ox O2 Delivery O2 Flow Rate FiO2 08/20/16 07:20 36.4 66 18 114/74 97 Room Air 08/20/16 00:37 Room Air 08/19/16 23:40 36.4 70 18 137/82 97 Room Air 08/19/16 21:40 56 114/69 08/19/16 15:55 100 Room Air 08/19/16 15:06 36.4 67 18 143/80 100 Room Air 08/19/16 08:00 Room Air 08/19/16 07:59 36.0 73 18 119/42 95 Room Air Physical Exam General Appearance: no apparent distress, + obese ENT: pharynx normal Neck: no JVD Respiratory/Chest: lungs clear, no respiratory distress, no accessory muscle use Cardiovascular: no gallop, no murmur, + irregularly irregular Abdomen: normal bowel sounds, non tender, soft, no organomegaly Extremities: + pedal edema (trace b/l ), + pertinent finding (right thigh is much larger than left thigh) Neurologic/Psychiatric: alert, oriented x 3 Skin: + pertinent finding (pleurX catheter in place, left chest; left-sided drain, left flank, with serosanguinous fluid) Laboratory Results Last 24 Hours Test 08/19/16 22:54 08/20/16 06:07 Activated Partial Thromboplast Time 52.8 SECONDS 56.4 SECONDS Partial Thromboplastin Ratio 2.0 2.2 White Blood Count 9.42 K/uL Red Blood Count 3.64 M/uL Hemoglobin 10.2 g/dL Hematocrit 33.1 % Mean Corpuscular Volume 90.9 fL Mean Corpuscular Hemoglobin 28.0 pg Mean Corpuscular Hemoglobin Concent 30.8 g/dl Platelet Count 354 K/uL Mean Platelet Volume 9.1 fL Neutrophils (%) (Auto) 63.5 % Lymphocytes (%) (Auto) 23.7 % Monocytes (%) (Auto) 9.3 % Eosinophils (%) (Auto) 1.8 % Basophils (%) (Auto) 0.3 % Neutrophils # (Auto) 5.98 K/uL Lymphocytes # (Auto) 2.23 K/uL Monocytes # (Auto) 0.88 K/uL Eosinophils # (Auto) 0.17 K/uL Basophils # (Auto) 0.03 K/uL RDW Standard Deviation 58.4 fL RDW Coefficient of Variation 17.6 % Immature Granulocyte % (Auto) 1.4 % Immature Granulocyte # (Auto) 0.13 K/uL Sodium Level 141 mmol/L Potassium Level 3.6 mmol/L Chloride Level 103 mmol/L Carbon Dioxide Level 31 mmol/L Anion Gap 7.0 mmol/L Blood Urea Nitrogen 35 mg/dl Creatinine 1.50 mg/dl Est Creatinine Clear Calc Drug Dose 39.6 ml/min Estimated GFR () 38.3 Estimated GFR (Non- 33.0 BUN/Creatinine Ratio 23.1 Random Glucose 86 mg/dl Calcium Level 8.6 mg/dl Assessment and Plan 76yo female with: 1. sepsis 2nd to UTI and abscess (or infected urinoma?) of left retroperitoneal space - sepsis resolved. 2. e. coli UTI - resolved. 3. metabolic encephalopathy 2nd to #1 - resolved. 4. left pleural effusion - s/p pleurX catheter insertion, POD #3. Initial fluid studies concerning for exudative effusion. Cell counts and gram stain not concerning for infectious process. Fluid creatinine normal ruling out that the effusion was urine-based. Cytology negative. PleurX management per Dr. Zhu. Appreciate his assistance. To be removed next week but for now daily drain. Daily drain only yielding 100cc or less. Pulmonary symptoms (dyspnea, etc) resolved. 5. left sided renal stone - unchanged in position on CT. No Rx at this time but needs attention in near future per urology (stent w/ stone removal). 6. left sided perinephric and retroperitoneal fluid collection - 2nd to multidrug resistant e. coli. s/p I/D by Dr. Alexander, then ultimately placement of drain by radiology (Dr. Novak). Sens to keflex. WBC count has normalized and no fever/chills. Infected hematoma? Infected urinoma? The e. coli is concerning that it could be urine-based. Will d/w Dr. Alexander. 7. protein calorie malnutrition - moderate - boost, MVI, etc. 8. CKD stage 4 - creatinine continues to improve suggesting she had element of acute renal failure. BMP in am. 9. early hypothyroidism - TSH x 2 have been high. Started synthroid replacement at 25mcg daily. Repeat TSH 6 weeks. 10. rib fractures on left - due to fall - healing. 11. chronic anemia - H/H stable. 12. a. fib - rates controlled. 13. DVT proph - SCDs. 14. chronic systolic CHF - compensated. 15. T2DM - adequate control. d/c FSBS. 16. h/o TIA - noted. 17. chest pain - EKG obtained and showed a. fib with no acute ST changes. In light of patient's DVT/PE history I elected to repeat dopplers of her legs which showed b/l DVT, age indeterminant. Thus, she conceivably could have PE. (I elected not to image the chest due to renal function) She had been on eliquis up until about 6-8 weeks ago so these presumably may have developed in the last 2 months. 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 I spoke with CT surgery and urology - both felt we could start her on heparin infusion. If she tolerates such over next few days w/ no bleeding complication could start coumadin then. If she bleeds from retroperitoneal space then the heparin would need to be stopped and IVC filter placed. This discussion was held with pt and her 2 daughters at bedside. They voiced understanding of plan of care. PT, OT angus appreciated. Continued [facility] stay due to: multiple IV medications needed, other (pleurX catheter placement, drain placement, DVTs) Discharge planning: other (assisted living)
[2016-08-20] MEDS: BOOST GLUCOSE CONTROL PO SCH (10:00)
--- NOTE | 2016-08-20 14:15 | Progress Note ---
Subjective Date of Service: Aug 20, 2016. Subjective Pt evaluation today including: conversation w/ patient, physical exam, chart review, lab review, conversation w/ marketing consultant pt had dvt and possible pe yesterday and was started on heparin pain controlled Problem List Medical Problems: (1) Anemia Status: Acute (2) Contusion of rib on left side Status: Acute (3) Creatinine elevation Status: Acute (4) Visual hallucination Status: Acute Objective Vital Signs Date Time Temp Pulse Resp B/P Pulse Ox O2 Delivery O2 Flow Rate FiO2 08/20/16 08:00 Room Air 08/20/16 07:20 36.4 66 18 114/74 97 Room Air 08/20/16 00:37 Room Air 08/19/16 23:40 36.4 70 18 137/82 97 Room Air 08/19/16 21:40 56 114/69 08/19/16 15:55 100 Room Air 08/19/16 15:06 36.4 67 18 143/80 100 Room Air Physical Exam Comments: drainage appears to have slowed considerably and new drainage back placed Laboratory Results Last 24 Hours Test 08/19/16 22:54 08/20/16 06:07 Activated Partial Thromboplast Time 52.8 SECONDS 56.4 SECONDS Partial Thromboplastin Ratio 2.0 2.2 White Blood Count 9.42 K/uL Red Blood Count 3.64 M/uL Hemoglobin 10.2 g/dL Hematocrit 33.1 % Mean Corpuscular Volume 90.9 fL Mean Corpuscular Hemoglobin 28.0 pg Mean Corpuscular Hemoglobin Concent 30.8 g/dl Platelet Count 354 K/uL Mean Platelet Volume 9.1 fL Neutrophils (%) (Auto) 63.5 % Lymphocytes (%) (Auto) 23.7 % Monocytes (%) (Auto) 9.3 % Eosinophils (%) (Auto) 1.8 % Basophils (%) (Auto) 0.3 % Neutrophils # (Auto) 5.98 K/uL Lymphocytes # (Auto) 2.23 K/uL Monocytes # (Auto) 0.88 K/uL Eosinophils # (Auto) 0.17 K/uL Basophils # (Auto) 0.03 K/uL RDW Standard Deviation 58.4 fL RDW Coefficient of Variation 17.6 % Immature Granulocyte % (Auto) 1.4 % Immature Granulocyte # (Auto) 0.13 K/uL Sodium Level 141 mmol/L Potassium Level 3.6 mmol/L Chloride Level 103 mmol/L Carbon Dioxide Level 31 mmol/L Anion Gap 7.0 mmol/L Blood Urea Nitrogen 35 mg/dl Creatinine 1.50 mg/dl Est Creatinine Clear Calc Drug Dose 39.6 ml/min Estimated GFR () 38.3 Estimated GFR (Non- 33.0 BUN/Creatinine Ratio 23.1 Random Glucose 86 mg/dl Calcium Level 8.6 mg/dl Assessment and Plan discussed repeat imaging and addressing the ureteral stone as the retroperitoneal infection stabilizes given decreased drainage might consider irrigation of drain and repat ct only of abdomen dvt will complicate stone management Continued [facility] stay due to: multiple IV medications needed, other (pleurX catheter placement, drain placement, DVTs) Discharge planning: other (assisted living)
[2016-08-20 14:46] VITALS: BP 114/67; PULSE 57; TEMP 36.5; O2SAT 98
[2016-08-20 15:45] VITALS: O2SAT 98
[2016-08-20 20:44] VITALS: BP 118/80; PULSE 60
[2016-08-20] MEDS: SERTRALINE HCL 50 MG TAB PO SCH (20:46)
[2016-08-20] MEDS: RANITIDINE HCL 150 MG TAB PO SCH (20:46)
[2016-08-20 23:37] VITALS: BP 129/76; PULSE 59; TEMP 36.5; O2SAT 95
--- NOTE | 2016-08-20 23:42 | Progress Note ---
Subjective Date of Service: Aug 20, 2016. Subjective Pt evaluation today including: conversation w/ patient, conversation w/ family (daughter by phone), physical exam, chart review, lab review, conversation w/ service delivery consultant (urology), review of inpatient medication list Pain: left flank but improved from earlier this week PO Intake: fair Voiding: no voiding problems no events overnight pleurX drained again today - only 50cc this AM no new complaints staff report no change in appearance of fluid from the retroperitoneal space Problem List Medical Problems: (1) Anemia Status: Acute (2) Contusion of rib on left side Status: Acute (3) Creatinine elevation Status: Acute (4) Visual hallucination Status: Acute Review of Systems Constitutional: No chills, No fever Respiratory: No dyspnea on exertion, No shortness of breath Cardiac: No chest pain, No orthopnea Abdomen: No pain Objective Vital Signs Date Time Temp Pulse Resp B/P Pulse Ox O2 Delivery O2 Flow Rate FiO2 08/20/16 20:44 60 118/80 08/20/16 15:45 98 Room Air 08/20/16 14:46 36.5 57 20 114/67 98 Room Air 08/20/16 08:00 Room Air 08/20/16 07:20 36.4 66 18 114/74 97 Room Air 08/20/16 00:37 Room Air 08/19/16 23:40 36.4 70 18 137/82 97 Room Air Physical Exam General Appearance: no apparent distress, + obese ENT: pharynx normal Neck: no JVD Respiratory/Chest: lungs clear, no respiratory distress, no accessory muscle use, + decreased breath sounds (left base but markedly improved in airation) Cardiovascular: no gallop, no murmur, + irregularly irregular Abdomen: normal bowel sounds, non tender, soft, no organomegaly Extremities: no pedal edema Neurologic/Psychiatric: alert, oriented x 3 Skin: + pertinent finding (pleurX catheter, left chest; drain - retroperitoneal space - left flank ) Laboratory Results Last 24 Hours Test 08/20/16 06:07 White Blood Count 9.42 K/uL Red Blood Count 3.64 M/uL Hemoglobin 10.2 g/dL Hematocrit 33.1 % Mean Corpuscular Volume 90.9 fL Mean Corpuscular Hemoglobin 28.0 pg Mean Corpuscular Hemoglobin Concent 30.8 g/dl Platelet Count 354 K/uL Mean Platelet Volume 9.1 fL Neutrophils (%) (Auto) 63.5 % Lymphocytes (%) (Auto) 23.7 % Monocytes (%) (Auto) 9.3 % Eosinophils (%) (Auto) 1.8 % Basophils (%) (Auto) 0.3 % Neutrophils # (Auto) 5.98 K/uL Lymphocytes # (Auto) 2.23 K/uL Monocytes # (Auto) 0.88 K/uL Eosinophils # (Auto) 0.17 K/uL Basophils # (Auto) 0.03 K/uL RDW Standard Deviation 58.4 fL RDW Coefficient of Variation 17.6 % Immature Granulocyte % (Auto) 1.4 % Immature Granulocyte # (Auto) 0.13 K/uL Activated Partial Thromboplast Time 56.4 SECONDS Partial Thromboplastin Ratio 2.2 Sodium Level 141 mmol/L Potassium Level 3.6 mmol/L Chloride Level 103 mmol/L Carbon Dioxide Level 31 mmol/L Anion Gap 7.0 mmol/L Blood Urea Nitrogen 35 mg/dl Creatinine 1.50 mg/dl Est Creatinine Clear Calc Drug Dose 39.6 ml/min Estimated GFR () 38.3 Estimated GFR (Non- 33.0 BUN/Creatinine Ratio 23.1 Random Glucose 86 mg/dl Calcium Level 8.6 mg/dl Assessment and Plan 76yo female with: 1. sepsis 2nd to UTI and retroperitoneal abscess (or infected urinoma?) of left retroperitoneal space - sepsis resolved. 2. e. coli UTI - resolved. 3. metabolic encephalopathy 2nd to #1 - resolved. 4. left pleural effusion - s/p pleurX catheter insertion, POD #4. Initial fluid studies concerning for exudative effusion. Cell counts and gram stain not concerning for infectious process. Fluid creatinine normal ruling out that the effusion was urine-based. Cytology negative. PleurX management per Dr. Zhu. To be removed next week but for now daily drain. Daily drain only yielding 100cc or less. Pulmonary symptoms (dyspnea, etc) resolved. 5. left sided renal stone - unchanged in position on CT. No Rx at this time but needs attention in near future per urology (stent w/ stone removal). 6. left sided perinephric and retroperitoneal fluid collection - 2nd to multidrug resistant e. coli. s/p I/D by Dr. Alexander, then ultimately placement of drain by radiology (Dr. Novak). Sens to keflex, rocgetachew, others. WBC count has normalized and no fever/chills. Infected hematoma? Infected urinoma? The e. coli is concerning that it could be urine-based. Drain continues to have fairly significant output. Leave drain in place. 7. protein calorie malnutrition - moderate - boost, MVI, etc. 8. CKD stage 4 - creatinine continues to improve (today 1.5) suggesting she had element of acute renal failure. BMP in am. 9. early hypothyroidism - TSH x 2 have been high. Started synthroid replacement at 25mcg daily. Repeat TSH 6 weeks. 10. rib fractures on left - due to fall - healing. 11. chronic anemia - H/H stable. 12. a. fib - rates controlled. 13. DVT proph - SCDs. 14. chronic systolic CHF - compensated. 15. T2DM - adequate control (previous FSBS were normal). 16. h/o TIA - noted. 17. b/l LE DVTs - age indeterminate on doppler study. She had been on eliquis up until about 6-8 weeks ago at which point it was d/c due to concern of retroperitoneal hemorrhage from trauma. After release from [facility] she went to rehab. Family reports she had copious edema of the legs in rehab. Perhaps she developed the DVTs then. 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 Started heparin infusion. Watch carefully for ANY bleeding from the retroperitoneal space. Daily CBC. If no further procedures planned and if H/H stable then ultimately place on coumadin. Daughter updated. Continued [facility] stay due to: multiple IV medications needed, other (pleurX catheter placement, drain placement, DVTs) Discharge planning: other (assisted living)
[2016-08-21] VITALS: O2SAT 98
[2016-08-21] MEDS: HEPARIN 25,000 UNIT/500ML D5W 500 ML IV PRN (00:40)
[2016-08-21] MEDS: LEVOTHYROXINE 25 MCG TAB PO SCH (05:53)
[2016-08-21] MEDS: TRAMADOL HCL 50 MG TAB PO PRN ×2 (05:54→19:52)
[2016-08-21 06:27] LABS: BASO % 0.2 %; BASO ABS # 0.02 K/uL (0-0.2); COMPLETE YES; EOS % 2.2 %; HEMATOCRIT 32.6 % (37-47); IG% 1.2 %; LYMPH % 26.4 %; LYMPH ABS # 2.38 K/uL (1.2-3.4); MEAN CELL VOLUME 90.1 fL (80-100); MEAN CORPUSCULAR HEMOGLOBIN 28.2 pg (25-34); MEAN CORPUSCULAR HGB CONC 31.3 g/dl (32-36); MEAN PLATELET VOLUME 8.9 fL (7.4-10.4); MONO % 9.5 %; NEUT % 60.5 %; PLATELET COUNT 319 K/uL (130-400); RED BLOOD COUNT 3.62 M/uL (4.2-5.4); WHITE BLOOD COUNT 9.01 K/uL (4.8-10.8)
[2016-08-21 06:43] LABS: PARTIAL THROMBOPLASTIN RATIO 1.9
[2016-08-21 07:01] LABS: BUN/CREATININE RATIO 19.1 (10-20); CALCIUM 8.5 mg/dl (8.5-10.1); CREATININE 1.4 mg/dl (0.60-1.20); POTASSIUM 3.7 mmol/L (3.5-5.1)
[2016-08-21 07:37] VITALS: BP 127/84; PULSE 62; TEMP 36.4; O2SAT 95
[2016-08-21] MEDS: ATORVASTATIN 40 MG TAB PO SCH (07:44)
[2016-08-21] MEDS: CEROVITE ADV FORMULA TAB PO SCH (07:44)
[2016-08-21] MEDS: FUROSEMIDE 20 MG TAB PO SCH (07:45)
[2016-08-21] MEDS: CARVEDILOL 25 MG TAB PO SCH ×2 (07:45→19:48)
[2016-08-21] MEDS: MULTIVITAMIN TAB PO SCH (07:45)
[2016-08-21 08:30] VITALS: O2SAT 97
--- NOTE | 2016-08-21 08:30 | Progress Note ---
Subjective Date of Service: Aug 21, 2016. Subjective Pt evaluation today including: conversation w/ patient, chart review, lab review Voiding: no voiding problems 76 yo female with ureteral stone, UTI, and retroperitoneal abscess. Fluid Cr from pleural fluid last week noted to be 2.2. Drain from retroperitoneal abscess intact, and draining serosanguinous fluid this morning. Pt denies pain. Occasional nausea. Denies vomiting. C/o constipation this morning. 4 days without a BM. Cr has improved to 1.4. She has been started on Heparin for DVT/PE. Problem List Medical Problems: (1) Anemia Status: Acute (2) Contusion of rib on left side Status: Acute (3) Creatinine elevation Status: Acute (4) Visual hallucination Status: Acute Review of Systems Constitutional: No chills, No fever Respiratory: No shortness of breath Cardiac: No chest pain Abdomen: No nausea, No pain, No vomiting Female : No dysuria, No hematuria Heme: No abnormal bleeding/bruising Objective Vital Signs Date Time Temp Pulse Resp B/P Pulse Ox O2 Delivery O2 Flow Rate FiO2 08/21/16 07:37 36.4 62 18 127/84 95 Room Air 08/21/16 00:00 98 Room Air 08/20/16 23:37 36.5 59 16 129/76 95 Room Air 08/20/16 20:44 60 118/80 08/20/16 15:45 98 Room Air 08/20/16 14:46 36.5 57 20 114/67 98 Room Air Physical Exam General Appearance: no apparent distress Eyes: normal inspection ENT: hearing grossly normal Neck: no JVD Respiratory/Chest: no respiratory distress, no accessory muscle use Cardiovascular: no JVD Extremities: normal inspection Neurologic/Psychiatric: alert, normal mood/affect, oriented x 3 Skin: normal color Comments: Drain draining serosanguinous fluid. Laboratory Results Last 24 Hours Test 08/21/16 05:50 White Blood Count 9.01 K/uL Red Blood Count 3.62 M/uL Hemoglobin 10.2 g/dL Hematocrit 32.6 % Mean Corpuscular Volume 90.1 fL Mean Corpuscular Hemoglobin 28.2 pg Mean Corpuscular Hemoglobin Concent 31.3 g/dl Platelet Count 319 K/uL Mean Platelet Volume 8.9 fL Neutrophils (%) (Auto) 60.5 % Lymphocytes (%) (Auto) 26.4 % Monocytes (%) (Auto) 9.5 % Eosinophils (%) (Auto) 2.2 % Basophils (%) (Auto) 0.2 % Neutrophils # (Auto) 5.44 K/uL Lymphocytes # (Auto) 2.38 K/uL Monocytes # (Auto) 0.86 K/uL Eosinophils # (Auto) 0.20 K/uL Basophils # (Auto) 0.02 K/uL RDW Standard Deviation 57.8 fL RDW Coefficient of Variation 17.6 % Immature Granulocyte % (Auto) 1.2 % Immature Granulocyte # (Auto) 0.11 K/uL Activated Partial Thromboplast Time 50.6 SECONDS Partial Thromboplastin Ratio 1.9 Sodium Level 141 mmol/L Potassium Level 3.7 mmol/L Chloride Level 103 mmol/L Carbon Dioxide Level 31 mmol/L Anion Gap 7.0 mmol/L Blood Urea Nitrogen 27 mg/dl Creatinine 1.40 mg/dl Est Creatinine Clear Calc Drug Dose 42.4 ml/min Estimated GFR () 41.6 Estimated GFR (Non- 35.9 BUN/Creatinine Ratio 19.1 Random Glucose 82 mg/dl Calcium Level 8.5 mg/dl Assessment and Plan A/P: UTI, 1.8cm proximal left ureteral stone, retroperitoneal abscess AFVSS. Recommend continuing Keflex for a total of 10 days for UTI. Will plan to repeat a CT tomorrow to ensure improvement of the retroperitoneal abscess. Fluid Cr from abscess is pending. Management of constipation and DVT/PE per primary service. As for her 1.8cm proximal left ureteral stone, would consider outpatient URS for management. Would consider doing while on anticoagulation. Unable to perform ESWL while anticoagulated. Will avoid stent placement for now unless the pt were to decompensate with fever or ARF. Will continue to follow along with primary service at this time. Continued [facility] stay due to: multiple IV medications needed, other (pleurX catheter placement, drain placement, DVTs) Discharge planning: other (assisted living)
--- NOTE | 2016-08-21 08:31 | Surgery Progress Note ---
Subjective Date of Service: Aug 21, 2016. Pt. denies CP or SOB and state she feels well. Objective Vitals Date Time Temp Pulse Resp B/P Pulse Ox O2 Delivery O2 Flow Rate FiO2 08/21/16 07:37 36.4 62 18 127/84 95 Room Air 08/21/16 00:00 98 Room Air 08/20/16 23:37 36.5 59 16 129/76 95 Room Air 08/20/16 20:44 60 118/80 08/20/16 15:45 98 Room Air 08/20/16 14:46 36.5 57 20 114/67 98 Room Air Physical Exam General: + well developed, + well nourished, No distress CV: + RRR Pulmonary: + pertinent finding (slight decrease at bases, but otherwise clear) , No accessory muscle use, No respiratory distress Neurologic: + alert & oriented x 3 Drains / Tubes pleurex (left pleurex--50 cc drained this am ) Assessment & Plan 76 year old female with left pleural effusion -pleurex placed on (08/16/16) -cytology (-) for malignancy -cultures remain (-) to date -pleural fluid Cr. is still pending -pt. will continue to have pleurex drained daily -plan noted for repeat CT scan of abdomen today--will be able to see inferior lung tucker and assess for pleural effusion
[2016-08-21] MEDS: CEPHALEXIN MONOHYDRATE 250 MG CAP PO SCH ×2 (09:47→19:48)
[2016-08-21] MEDS: BOOST GLUCOSE CONTROL PO SCH (10:53)
[2016-08-21] MEDS ORDERED: BISACODYL 10 MG SUPP PR STA (11:17)
[2016-08-21] MEDS ORDERED: BISACODYL 10 MG SUPP PR PRN (11:30)
--- NOTE | 2016-08-21 11:32 | Progress Note ---
Subjective Date of Service: Aug 21, 2016. Subjective Pt evaluation today including: conversation w/ patient, physical exam, chart review, lab review, review of studies, conversation w/ principal consultant, review of inpatient medication list Sitting up in chair, pleasant, no complaining, report has constipation no bowel movement for 4 days after further asking Problem List Medical Problems: (1) Anemia Status: Acute (2) Contusion of rib on left side Status: Acute (3) Creatinine elevation Status: Acute (4) Visual hallucination Status: Acute Review of Systems Constitutional: No chills, No fatigue, No fever, No problem reported, No sweats , No weakness, No weight loss Eyes: No diplopia, No discharge, No eye pain, No redness, No worsening of vision ENT: No dental problems, No hearing loss, No nasal symptoms, No sore throat, No tinnitus, No trouble swallowing, No unusual epistaxis Respiratory: No cough, No dyspnea at rest, No dyspnea on exertion, No hemoptysis, No shortness of breath, No sputum, No wheezing Cardiac: No PND, No chest pain, No claudication, No edema, No orthopnea, No palpitations Abdomen: No constipation, No diarrhea, No nausea, No pain, No vomiting Musculoskeletal: No calf pain, No joint pain, No muscle pain, No swelling Female : No abnormal vaginal bleeding, No dysuria, No hematuria, No incontinence, No urinary frequency, No vaginal discharge Neurologic: No balance problems, No memory loss, No numbness/tingling, No paralysis, No vertigo, No weakness Psychiatric: No anhedonism, No anxiety, No depression symptoms, No insomnia, No substance abuse Heme: No abnormal bleeding/bruising, No clotting problems, No night sweats, No swollen lymph nodes Endo: No excessive thirst, No excessive urination, No fatigue Skin: No bleeding, No color change, No itch, No new/changing skin lesions, No rash Objective Vital Signs Date Time Temp Pulse Resp B/P Pulse Ox O2 Delivery O2 Flow Rate FiO2 08/21/16 08:30 97 Room Air 08/21/16 07:37 36.4 62 18 127/84 95 Room Air 08/21/16 00:00 98 Room Air 08/20/16 23:37 36.5 59 16 129/76 95 Room Air 08/20/16 20:44 60 118/80 08/20/16 15:45 98 Room Air 08/20/16 14:46 36.5 57 20 114/67 98 Room Air Physical Exam General Appearance: WD/WN, no apparent distress, + obese Eyes: normal inspection, PERRL, EOMI, sclerae normal ENT: normal ENT inspection, hearing grossly normal, pharynx normal Neck: supple, no adenopathy, thyroid normal, no JVD, no carotid bruits, trachea midline Respiratory/Chest: chest non-tender, normal breath sounds, no respiratory distress, no accessory muscle use, + decreased breath sounds, + pertinent finding ((X catheter in place, has empty 50ml this morning) Cardiovascular: regular rate, rhythm, no gallop, no JVD, no murmur, + pertinent finding (trace edema) Abdomen: normal bowel sounds, non tender, soft, no organomegaly, no pulsatile mass Extremities: normal range of motion, non-tender, normal inspection, no pedal edema, no calf tenderness, normal capillary refill, pelvis stable Neurologic/Psychiatric: 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 tested, no motor/sensory deficits, alert, normal mood/affect, oriented x 3 Skin: normal color, warm/dry, no rash Lymphatic: no adenopathy Laboratory Results Last 24 Hours Test 08/21/16 05:50 White Blood Count 9.01 K/uL Red Blood Count 3.62 M/uL Hemoglobin 10.2 g/dL Hematocrit 32.6 % Mean Corpuscular Volume 90.1 fL Mean Corpuscular Hemoglobin 28.2 pg Mean Corpuscular Hemoglobin Concent 31.3 g/dl Platelet Count 319 K/uL Mean Platelet Volume 8.9 fL Neutrophils (%) (Auto) 60.5 % Lymphocytes (%) (Auto) 26.4 % Monocytes (%) (Auto) 9.5 % Eosinophils (%) (Auto) 2.2 % Basophils (%) (Auto) 0.2 % Neutrophils # (Auto) 5.44 K/uL Lymphocytes # (Auto) 2.38 K/uL Monocytes # (Auto) 0.86 K/uL Eosinophils # (Auto) 0.20 K/uL Basophils # (Auto) 0.02 K/uL RDW Standard Deviation 57.8 fL RDW Coefficient of Variation 17.6 % Immature Granulocyte % (Auto) 1.2 % Immature Granulocyte # (Auto) 0.11 K/uL Activated Partial Thromboplast Time 50.6 SECONDS Partial Thromboplastin Ratio 1.9 Sodium Level 141 mmol/L Potassium Level 3.7 mmol/L Chloride Level 103 mmol/L Carbon Dioxide Level 31 mmol/L Anion Gap 7.0 mmol/L Blood Urea Nitrogen 27 mg/dl Creatinine 1.40 mg/dl Est Creatinine Clear Calc Drug Dose 42.4 ml/min Estimated GFR () 41.6 Estimated GFR (Non- 35.9 BUN/Creatinine Ratio 19.1 Random Glucose 82 mg/dl Calcium Level 8.5 mg/dl Assessment and Plan 76yo female admitted from [facility] with complaints of increased confusion on 08/11/2016 Per family sepsis 2nd to UTI and retroperitoneal abscess (or infected urinoma?) of left retroperitoneal space - sepsis resolved. e. coli UTI - resolved. metabolic encephalopathy 2nd to sepsis and UTI - resolved. left pleural effusion - s/p pleurX catheter insertion, POD #5. Initial fluid studies concerning for exudative effusion. Cell counts and gram stain not concerning for infectious process. Fluid creatinine normal ruling out that the effusion was urine-based. Cytology negative. PleurX management per Dr. Zhu. To be removed next week but for now daily drain. Daily drain going on, today has 50 mL drainage Pulmonary symptoms (dyspnea, etc) resolved. Left sided renal stone - unchanged in position on CT. left sided perinephric and retroperitoneal fluid collection - 2nd to multidrug resistant e. coli. s/p I/D by Dr. Alexander, then ultimately placement of drain by radiology (Dr. Novak). Sens to keflex, rocephin, others. WBC count has normalized and no fever/chills. plan to repeat a CT tomorrow to ensure improvement of the retroperitoneal abscess. Fluid Cr from abscess is pending. As for her 1.8cm proximal left ureteral stone, would consider outpatient URS for management urologist , Would consider doing while on anticoagulation. Unable to perform ESWL while anticoagulated, avoid stent placement for now unless the pt were to decompensate with fever or ARF. protein calorie malnutrition - moderate - boost, MVI, etc. CKD stage 4 stable early hypothyroidism - TSH x 2 have been high. Started synthroid replacement at 25mcg daily. Repeat TSH 6 weeks. rib fractures on left - due to fall - healing. chronic anemia - H/H stable. a. fib - rates controlled. chronic systolic CHF - compensated. b/l LE DVTs - age indeterminate on doppler study. She had been on eliquis up until about 6-8 weeks ago at which point it was d/c due to concern of retroperitoneal hemorrhage from trauma. After release from [facility] she went to rehab. Family reports she had copious edema of the legs in rehab. Perhaps she developed the DVTs then. 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 Started heparin infusion. Watch carefully for ANY bleeding from the retroperitoneal space. Daily CBC. Today, we'll treat her constipation and possible history, we'll talk to specialist, If no further procedures planned and if H/H stable then ultimately place on coumadin. to repeat CT scan of abdomen which will be able to see inferior lung tucker and assess for pleural effusion, discussed with nurse and patient Continued [facility] stay due to: multiple IV medications needed, other (pleurX catheter placement, drain placement, DVTs) Discharge planning: other (assisted living)
[2016-08-21 15:02] VITALS: BP 123/68; PULSE 60; TEMP 36.5; O2SAT 96
[2016-08-21 15:48] VITALS: O2SAT 95
[2016-08-21] MEDS: SERTRALINE HCL 50 MG TAB PO SCH (19:48)
[2016-08-21] MEDS: RANITIDINE HCL 150 MG TAB PO SCH (19:48)
[2016-08-21] MEDS: ACETAMINOPHEN 325 MG TAB PO PRN (19:51)
[2016-08-21 20:00] VITALS: BP 105/64; PULSE 77
[2016-08-22 00:02] VITALS: BP 130/60; PULSE 60; TEMP 36.5; O2SAT 92
[2016-08-22] MEDS: LEVOTHYROXINE 25 MCG TAB PO SCH (06:03)
[2016-08-22 06:42] LABS: BASO % 0.3 %; BASO ABS # 0.03 K/uL (0-0.2); COMPLETE YES; HEMATOCRIT 34.8 % (37-47); LYMPH % 27.5 %; LYMPH ABS # 2.38 K/uL (1.2-3.4); MEAN CELL VOLUME 91.1 fL (80-100); MEAN CORPUSCULAR HEMOGLOBIN 27.7 pg (25-34); MEAN CORPUSCULAR HGB CONC 30.5 g/dl (32-36); MEAN PLATELET VOLUME 9.3 fL (7.4-10.4); MONO % 9.6 %; NEUT % 59.6 %; PLATELET COUNT 320 K/uL (130-400); RED BLOOD COUNT 3.82 M/uL (4.2-5.4); WHITE BLOOD COUNT 8.67 K/uL (4.8-10.8)
[2016-08-22 07:14] LABS: BUN/CREATININE RATIO 17.6 (10-20); CALCIUM 8.3 mg/dl (8.5-10.1); CREATININE 1.5 mg/dl (0.60-1.20); MAGNESIUM 1.6 mg/dl (1.8-2.4); POTASSIUM 3.6 mmol/L (3.5-5.1)
[2016-08-22] MEDS: CEROVITE ADV FORMULA TAB PO SCH ×2 (08:00→08:19)
--- NOTE | 2016-08-22 08:02 | DIAGNOSTIC IMAGING REPORT ---
CT SCAN OF THE ABDOMEN AND PELVIS WITHOUT CONTRAST CLINICAL HISTORY: Retroperitoneal abscess. COMPARISON STUDY: 08/18/2016 TECHNIQUE: CT scan of the abdomen and pelvis was performed from the lung bases to the proximal femurs. Images are reviewed in the axial, sagittal, and coronal planes. IV contrast was not administered for this examination. CT DOSE: 1662.92 mGy.cm FINDINGS: Lower chest: There is dependent right basilar atelectasis. There is dependent left basilar atelectasis/consolidation with mild thickening. There is a small left pleural effusion and trace right pleural effusion. The heart is mildly enlarged. A left chest tube is visualized. Liver: The unenhanced liver is normal in size, contour, and attenuation. There is no intrahepatic biliary ductal dilatation. Gallbladder: Surgically absent Spleen: Normal in size and attenuation. Pancreas: Unremarkable. Adrenal glands: Unremarkable. Kidneys: There is a punctate nonobstructing right renal calculus. There is a punctate left renal calculus. There is a 15 mm calculus at the level the left ureterovesical junction. There is left-sided perinephric stranding. There is been interval placement of a drainage catheter into the left flank/retroperitoneal abscess. The abscess is slightly smaller than on the immediate post drainage study. There is a small perinephric fluid collection, consistent with a small perinephric abscess. Bowel: There are postsurgical changes of an anterior hernia repair. There are no transition zones indicate bowel obstruction. There is colonic diverticulosis. There is mild sigmoid diverticulitis involving the distal descending colon.. Peritoneum: No free air is visualized. There is trace fluid within the pelvis Vasculature: The abdominal aorta is normal in course and caliber. There are extensive arterial calcifications present. Adenopathy: None. Pelvic viscera: The uterus appears surgically absent. There is a 31 mm right ovarian cystic lesion. Skeletal structures: No destructive osseous lesions are seen. IMPRESSION: 1. Small left pleural effusion. Left basilar chest tube. Associated left basilar atelectasis/consolidation. 2. Interval decrease in the size of the left retroperitoneal and flank abscess status post placement of a drainage catheter. 3. 15 mm calculus at the level the left ureterovesical junction. Punctate left intrarenal calculus 4. Mild diverticulitis involving the distal descending colon 5. No evidence of bowel obstruction. No evidence of free air 6. Stable 31 mm right ovarian cystic lesion Electronically signed by: Chadwick Morris M.D. 08/22/2016 8:01 AM Dictated Date/Time: 08/22/2016 7:51 AM
[2016-08-22 08:15] VITALS: BP 132/57; PULSE 70; TEMP 36.5; O2SAT 96
[2016-08-22] MEDS: CARVEDILOL 25 MG TAB PO SCH ×2 (08:18→20:27)
[2016-08-22] MEDS: CEPHALEXIN MONOHYDRATE 250 MG CAP PO SCH ×2 (08:19→20:27)
[2016-08-22] MEDS: FUROSEMIDE 20 MG TAB PO SCH (08:19)
[2016-08-22] MEDS: ATORVASTATIN 40 MG TAB PO SCH (08:19)
[2016-08-22] MEDS: MULTIVITAMIN TAB PO SCH (08:20)
[2016-08-22] MEDS: BOOST GLUCOSE CONTROL PO SCH (08:22)
[2016-08-22] MEDS: MAGNESIUM OXIDE 400 MG TAB PO SCH ×2 (08:24→20:28)
[2016-08-22 08:33] LABS: PARTIAL THROMBOPLASTIN RATIO 1.7
--- NOTE | 2016-08-22 09:47 | Progress Note ---
Subjective Date of Service: Aug 22, 2016. (Zoraida Jeter CRNP) Subjective Pt evaluation today including: conversation w/ patient, chart review, lab review Voiding: no voiding problems 76 yo female with retroperitoneal abscess. Pt denies pain, n/v, dysuria, or hematuria today. Drain continues to output serosanguinous fluid. 70ml output yesterday. PleurX catheter remains in place. CT repeated this morning. Demonstrating decrease in fluid collection. (Zoraida Jeter CRNP) Problem List Medical Problems: (1) Anemia Status: Acute (2) Contusion of rib on left side Status: Acute (3) Creatinine elevation Status: Acute (4) Visual hallucination Status: Acute (Zoraida Jeter CRNP) Review of Systems Constitutional: No chills, No fever Respiratory: No shortness of breath Cardiac: No chest pain Abdomen: No nausea, No pain, No vomiting Female : No dysuria, No hematuria Heme: No abnormal bleeding/bruising (Zoraida Jeter CRNP) Objective Vital Signs Date Time Temp Pulse Resp B/P Pulse Ox O2 Delivery O2 Flow Rate FiO2 08/22/16 08:15 36.5 70 20 132/57 96 Room Air 08/22/16 00:02 36.5 60 18 130/60 92 Room Air 08/22/16 00:01 Room Air 08/21/16 20:00 77 105/64 08/21/16 20:00 Room Air 08/21/16 15:48 95 Room Air 08/21/16 15:02 36.5 60 20 123/68 96 Room Air (Zoraida Jeter CRNP) Physical Exam General Appearance: no apparent distress Eyes: normal inspection ENT: hearing grossly normal Neck: no JVD Respiratory/Chest: no respiratory distress, no accessory muscle use Cardiovascular: no JVD Extremities: normal inspection Neurologic/Psychiatric: alert, normal mood/affect, oriented x 3 Skin: normal color (Zoraida Jeter CRNP) Laboratory Results Last 24 Hours Test 08/22/16 06:18 08/22/16 07:15 White Blood Count 8.67 K/uL Red Blood Count 3.82 M/uL Hemoglobin 10.6 g/dL Hematocrit 34.8 % Mean Corpuscular Volume 91.1 fL Mean Corpuscular Hemoglobin 27.7 pg Mean Corpuscular Hemoglobin Concent 30.5 g/dl Platelet Count 320 K/uL Mean Platelet Volume 9.3 fL Neutrophils (%) (Auto) 59.6 % Lymphocytes (%) (Auto) 27.5 % Monocytes (%) (Auto) 9.6 % Eosinophils (%) (Auto) 2.0 % Basophils (%) (Auto) 0.3 % Neutrophils # (Auto) 5.17 K/uL Lymphocytes # (Auto) 2.38 K/uL Monocytes # (Auto) 0.83 K/uL Eosinophils # (Auto) 0.17 K/uL Basophils # (Auto) 0.03 K/uL RDW Standard Deviation 59.2 fL RDW Coefficient of Variation 17.8 % Immature Granulocyte % (Auto) 1.0 % Immature Granulocyte # (Auto) 0.09 K/uL Sodium Level 139 mmol/L Potassium Level 3.6 mmol/L Chloride Level 101 mmol/L Carbon Dioxide Level 31 mmol/L Anion Gap 7.0 mmol/L Blood Urea Nitrogen 26 mg/dl Creatinine 1.50 mg/dl Est Creatinine Clear Calc Drug Dose 39.6 ml/min Estimated GFR () 38.3 Estimated GFR (Non- 33.0 BUN/Creatinine Ratio 17.6 Random Glucose 84 mg/dl Calcium Level 8.3 mg/dl Magnesium Level 1.6 mg/dl Activated Partial Thromboplast Time 44.3 SECONDS Partial Thromboplastin Ratio 1.7 (Zoraida Jeter CRNP) Assessment and Plan A/P: UTI, 1.8cm proximal left ureteral stone, retroperitoneal abscess AFVSS. Recommend continuing Keflex for a total of 10 days for UTI. Improving retroperitoneal abscess per CT scan. Will leave drain in place for now. Management of constipation and DVT/PE per primary service. As for her 1.8cm proximal left ureteral stone, would consider outpatient URS for management. Would consider doing while on anticoagulation. Unable to perform ESWL while anticoagulated. Will avoid stent placement for now unless the pt were to decompensate with fever or ARF. Will continue to follow along with primary service at this time. Continued [facility] stay due to: multiple IV medications needed, other (pleurX catheter placement, drain placement, DVTs) Discharge planning: other (assisted living) (Zoraida Jeter CRNP) Spoke with Dr Kishore recio who reviewed ct today to assess for drainage . It appears there may be a process from the mid left kidney which may be the source of the abscess. The drain id putting ot serous sanguinous fluid .Ct shows less fluid and not clear if what remains is tissue or fluid. There appears to be mild hydro . If the kidney is functioning it does not appear to be putting a lot of urine out Drain also appears to have moved closer to her body wall. Still awaiting result of creatinine from fluid drawn last . Spoke with Dr. Juan and Dr Soria who agree this seems like the appropriate time to address the Left ureteral stone as a possible source of the abscess . Unfortunately it is unclear with the DVT and the episode of chest pain last Sunday which was presumed to be a PE whether she would need an umbrella prior to cysto ureteroscopy. Spoke with pt daughter Amber Burgess who requests a consult from Dr Hollingsworth and if possible placement of umbrella if necessary at same time as ureteroscopy. (Padilla Alexander M.D.)
[2016-08-22] MEDS: HEPARIN 25,000 UNIT/500ML D5W 500 ML IV PRN ×2 (09:52→13:40)
[2016-08-22] MEDS ORDERED: POLYETHYLENE (MIRALAX) 17 GM PACK PO PRN (10:00)
--- NOTE | 2016-08-22 10:11 | Progress Note ---
Subjective Date of Service: Aug 22, 2016. Subjective Pt evaluation today including: conversation w/ patient, physical exam, chart review, lab review, review of studies, conversation w/ analytics consultant, review of inpatient medication list Voiding: no voiding problems Sitting up in chair, generally feeling good , left Pleurx catheter is continued drainage, had some bowel movements after suppository yesterday, I feel not good enough Problem List Medical Problems: (1) Anemia Status: Acute (2) Contusion of rib on left side Status: Acute (3) Creatinine elevation Status: Acute (4) Visual hallucination Status: Acute Review of Systems Constitutional: No chills, No fatigue, No fever, No problem reported, No sweats , No weakness, No weight loss Eyes: No diplopia, No discharge, No eye pain, No redness, No worsening of vision ENT: No dental problems, No hearing loss, No nasal symptoms, No sore throat, No tinnitus, No trouble swallowing, No unusual epistaxis Respiratory: No cough, No dyspnea at rest, No dyspnea on exertion, No hemoptysis, No shortness of breath, No sputum, No wheezing Cardiac: No PND, No chest pain, No claudication, No edema, No orthopnea, No palpitations Abdomen: No constipation, No diarrhea, No nausea, No pain, No vomiting Musculoskeletal: No calf pain, No joint pain, No muscle pain, No swelling Female : No abnormal vaginal bleeding, No dysuria, No hematuria, No incontinence, No urinary frequency, No vaginal discharge Neurologic: No balance problems, No memory loss, No numbness/tingling, No paralysis, No vertigo, No weakness Psychiatric: No anhedonism, No anxiety, No depression symptoms, No insomnia, No substance abuse Heme: No abnormal bleeding/bruising, No clotting problems, No night sweats, No swollen lymph nodes Endo: No excessive thirst, No excessive urination, No fatigue Skin: No bleeding, No color change, No itch, No new/changing skin lesions, No rash Objective Vital Signs Date Time Temp Pulse Resp B/P Pulse Ox O2 Delivery O2 Flow Rate FiO2 08/22/16 08:15 36.5 70 20 132/57 96 Room Air 08/22/16 00:02 36.5 60 18 130/60 92 Room Air 08/22/16 00:01 Room Air 08/21/16 20:00 77 105/64 08/21/16 20:00 Room Air 08/21/16 15:48 95 Room Air 08/21/16 15:02 36.5 60 20 123/68 96 Room Air Physical Exam General Appearance: WD/WN, no apparent distress, + obese Eyes: normal inspection, PERRL, EOMI, sclerae normal ENT: normal ENT inspection, hearing grossly normal, pharynx normal Neck: supple, no adenopathy, thyroid normal, no JVD, no carotid bruits, trachea midline Respiratory/Chest: chest non-tender, normal breath sounds, no respiratory distress, no accessory muscle use, + decreased breath sounds, + pertinent finding (left chest wall PleuX catheter) Cardiovascular: regular rate, rhythm, no edema, no gallop, no JVD, no murmur Abdomen: normal bowel sounds, non tender, soft, no organomegaly, no pulsatile mass Extremities: normal range of motion, non-tender, normal inspection, no pedal edema, no calf tenderness, normal capillary refill, pelvis stable Neurologic/Psychiatric: 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0 % Basophils (%) (Auto) 0.3 % Neutrophils # (Auto) 5.17 K/uL Lymphocytes # (Auto) 2.38 K/uL Monocytes # (Auto) 0.83 K/uL Eosinophils # (Auto) 0.17 K/uL Basophils # (Auto) 0.03 K/uL RDW Standard Deviation 59.2 fL RDW Coefficient of Variation 17.8 % Immature Granulocyte % (Auto) 1.0 % Immature Granulocyte # (Auto) 0.09 K/uL Sodium Level 139 mmol/L Potassium Level 3.6 mmol/L Chloride Level 101 mmol/L Carbon Dioxide Level 31 mmol/L Anion Gap 7.0 mmol/L Blood Urea Nitrogen 26 mg/dl Creatinine 1.50 mg/dl Est Creatinine Clear Calc Drug Dose 39.6 ml/min Estimated GFR () 38.3 Estimated GFR (Non- 33.0 BUN/Creatinine Ratio 17.6 Random Glucose 84 mg/dl Calcium Level 8.3 mg/dl Magnesium Level 1.6 mg/dl Activated Partial Thromboplast Time 44.3 SECONDS Partial Thromboplastin Ratio 1.7 Assessment and Plan 76yo female admitted from [facility] with complaints of increased confusion on 08/11/2016 Per family sepsis 2nd to UTI and retroperitoneal abscess of left retroperitoneal space - sepsis resolved. e. coli UTI - resolved. metabolic encephalopathy 2nd to sepsis and UTI - resolved. left pleural effusion - s/p pleurX catheter insertion, POD #6. Initial fluid studies concerning for exudative effusion. Cell counts and gram stain not concerning for infectious process. Fluid creatinine normal ruling out that the effusion was urine-based. Cytology negative. PleurX management per Dr. Zhu. Pulmonary symptoms (dyspnea, etc) resolved. I talked to Dr. Zhu, he feels left pleural fluid is from the reaction of left retroperitoneal abscess, he will talk to urologist Left sided renal stone - unchanged in position on CT. left sided perinephric and retroperitoneal fluid collection - 2nd to multidrug resistant e. coli. s/p I/D by Dr. Alexander, then ultimately placement of drain by radiology (Dr. Novak). Sens to keflex, rocephin, others. WBC count has normalized and no fever/chills. UTI, 1.8cm proximal left ureteral stone, retroperitoneal abscess repeated Ct today, Improving retroperitoneal abscess per CT scan, they recs to leave drain in place for now. Keflex for a total of 10 days for UTI (today is 9/10 days). As for her 1.8cm proximal left ureteral stone, per urinologist: would consider outpatient URS for management. Would consider doing while on anticoagulation. Unable to perform ESWL while anticoagulated. Will avoid stent placement for now unless the pt were to decompensate with fever or ARF. protein calorie malnutrition - moderate - boost, MVI, etc. CKD stage 4 stable early hypothyroidism - TSH x 2 have been high. Started synthroid replacement at 25mcg daily. Repeat TSH 6 weeks. rib fractures on left - due to fall - healing. chronic anemia - H/H stable. a. fib - rates controlled. chronic systolic CHF - compensated. b/l LE DVTs - age indeterminate on doppler study. She had been on eliquis up until about 6-8 weeks ago at which point it was d/c due to concern of retroperitoneal hemorrhage from trauma. After release from [facility] she went to rehab. Family reports she had copious edema of the legs in rehab. Perhaps she developed the DVTs then. 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 Started heparin infusion. Watch carefully for ANY bleeding from the retroperitoneal space. Daily CBC. I talked to Dr. Zhu, he feels left pleural fluid is from the reaction of left retroperitoneal abscess, he will talk to urologist, if the urologist no planning to have any procedure, will switch heparin drip to oral Coumadin and then discharge plan, and follow-up with outpatient Continued [facility] stay due to: multiple IV medications needed, other (pleurX catheter placement, drain placement, DVTs) Discharge planning: other (assisted living)
[2016-08-22] MEDS ORDERED: HEPARIN IV BOLUS 3,000 UNIT in SYRINGE 0 ML IV ONE (10:15)
[2016-08-22] MEDS ORDERED: POLYETHYLENE (MIRALAX) 17 GM PACK PO ONE (10:30)
[2016-08-22] MEDS ORDERED: ALBUT/IPRATROP 3MG/0.5MG NEB 3 ML VIAL INH STA (15:14)
[2016-08-22 15:45] VITALS: O2SAT 95
[2016-08-22] MEDS ORDERED: ALBUT/IPRATROP 3MG/0.5MG NEB 3 ML VIAL INH SCH (16:00)
[2016-08-22 16:22] LABS: PARTIAL THROMBOPLASTIN RATIO 2.9
[2016-08-22 16:52] VITALS: BP 94/59; PULSE 100; TEMP 36.5; O2SAT 95
--- NOTE | 2016-08-22 17:28 | SURGERY PROGRESS NOTE ---
DATE: 08/22/2016 Ms. Aviles was seen today. Ms. Aviles had a drain placed in her left pleural cavity and this drained her nicely and her dyspnea on exertion improved. She was also found to have an E. coli urinary tract infection. She had an abscess around her kidney and subcutaneous areas actually and this was drained and grew out E. coli which was different than the E. coli in her urine. Her white count is down to 8,670. Her creatinine has improved to 1.5 from a high of 2.4. For her drainage, she has been draining small amounts of fluid from her PleurX catheter from 15-75 mL. Her drain has been draining less and less. This percutaneous drain drained 100 mL and 15 and 70. It does appear purulent. It appears to me from reviewing the films that Mrs. Aviles has had drainage of her pleural fluid quite nicely. The CT scan done this morning shows very little fluid left in the pleural cavity. Having said that, it appears this is a reactive effusion from a process around her kidney. She has a very large stone in the proximal ureter. This is being addressed by the urologist. I am going to remove this PleurX catheter in the next day or so. I am afraid of it becoming infected with the drains and the purulent material. I have explained to the patient this could recur. DESTIN
[2016-08-22] MEDS: TRAMADOL HCL 50 MG TAB PO PRN (19:07)
[2016-08-22 20:24] VITALS: BP 136/81; PULSE 64
[2016-08-22] MEDS: DOCUSATE SODIUM 100 MG CAP PO SCH (20:26)
[2016-08-22] MEDS: SERTRALINE HCL 50 MG TAB PO SCH (20:28)
[2016-08-22] MEDS: RANITIDINE HCL 150 MG TAB PO SCH (20:28)
[2016-08-22 23:39] LABS: PARTIAL THROMBOPLASTIN RATIO 2.8
[2016-08-23 00:18] VITALS: BP 100/55; PULSE 70; TEMP 36.6; O2SAT 96
[2016-08-23] MEDS: LEVOTHYROXINE 25 MCG TAB PO SCH (05:57)
[2016-08-23 06:52] LABS: PARTIAL THROMBOPLASTIN RATIO 2.2
[2016-08-23 07:55] VITALS: BP 124/71; PULSE 58; TEMP 36.6; O2SAT 96
--- NOTE | 2016-08-23 08:01 | Progress Note ---
Subjective Date of Service: Aug 23, 2016. Subjective Pt evaluation today including: conversation w/ patient, chart review, lab review Voiding: no voiding problems 76 yo female with retroperitoneal abscess. Now thought to be originating from her ureteral stone. Fluid Cr from drain placement from 08-18 continues to be pending. Lab called for the 3rd time this week to attempt to obtain results. Pt denies pain this morning. Denies n/v. Drain continues to put out sanguinous fluid. Pt is pending consultation with Dr. Madden for possible filter placement per Dr. Alexander. Problem List Medical Problems: (1) Anemia Status: Acute (2) Contusion of rib on left side Status: Acute (3) Creatinine elevation Status: Acute (4) Visual hallucination Status: Acute Review of Systems Constitutional: No chills, No fever Respiratory: No shortness of breath Abdomen: No nausea, No pain, No vomiting Female : No dysuria, No hematuria Heme: No abnormal bleeding/bruising Objective Vital Signs Date Time Temp Pulse Resp B/P Pulse Ox O2 Delivery O2 Flow Rate FiO2 08/23/16 00:18 36.6 70 20 100/55 96 Room Air 08/23/16 00:15 Room Air 08/22/16 20:24 64 136/81 08/22/16 16:52 36.5 100 18 94/59 95 Room Air 08/22/16 15:45 95 Room Air 08/22/16 08:15 36.5 70 20 132/57 96 Room Air 08/22/16 08:00 Room Air Physical Exam General Appearance: no apparent distress Eyes: normal inspection ENT: hearing grossly normal Neck: no JVD Respiratory/Chest: no respiratory distress, no accessory muscle use Cardiovascular: no JVD Extremities: normal inspection Neurologic/Psychiatric: alert, normal mood/affect, oriented x 3 Skin: normal color Laboratory Results Last 24 Hours Test 08/22/16 15:54 08/22/16 23:05 08/23/16 05:59 Activated Partial Thromboplast Time 74.8 SECONDS 72.7 SECONDS 55.9 SECONDS Partial Thromboplastin Ratio 2.9 2.8 2.2 Assessment and Plan A/P: UTI, 1.8cm proximal left ureteral stone, retroperitoneal abscess AFVSS. Recommend continuing Keflex for now. Consider IV abx for abscess? Retroperitoneal abscess ? from ureteral stone. Cysto with stent placement recommended at this time. Will await Dr. Madden's recommendations in regards to filter placement. Will continue to follow along with primary service at this time. Continued [facility] stay due to: multiple IV medications needed, other (pleurX catheter placement, drain placement, DVTs) Discharge planning: other (assisted living)
[2016-08-23] MEDS: HEPARIN 25,000 UNIT/500ML D5W 500 ML IV PRN (08:02)
[2016-08-23] MEDS: TRAMADOL HCL 50 MG TAB PO PRN ×2 (08:30→23:54)
[2016-08-23] MEDS: ATORVASTATIN 40 MG TAB PO SCH (08:31)
[2016-08-23] MEDS: FUROSEMIDE 20 MG TAB PO SCH (08:31)
[2016-08-23] MEDS: CEPHALEXIN MONOHYDRATE 250 MG CAP PO SCH ×2 (08:31→20:34)
[2016-08-23] MEDS: MULTIVITAMIN TAB PO SCH (08:32)
[2016-08-23] MEDS: CEROVITE ADV FORMULA TAB PO SCH (08:32)
[2016-08-23] MEDS: CARVEDILOL 25 MG TAB PO SCH ×2 (08:32→20:34)
[2016-08-23] MEDS: MAGNESIUM OXIDE 400 MG TAB PO SCH ×2 (08:32→20:34)
[2016-08-23 08:33] VITALS: PULSE 67
[2016-08-23] MEDS: BOOST GLUCOSE CONTROL PO SCH (08:33)
[2016-08-23] MEDS: DOCUSATE SODIUM 100 MG CAP PO SCH ×2 (08:33→20:00)
--- NOTE | 2016-08-23 08:35 | OPERATIVE REPORT ---
DATE OF OPERATION: 08/23/2016 DATE OF PROCEDURE: 08/23/2016. PROCEDURE: Removal of left PleurX catheter. SURGEON: Dr. Zhu. At the patient's bedside, the suture was cut. We did prep this area. I then removed the PleurX catheter and placed antimicrobial dressing over this. She tolerated it quite well. Will check an AP and lateral film in the radiology department today. I attest to the content of the Intraoperative Record and any orders documented therein. Any exceptio ns are noted below.
--- NOTE | 2016-08-23 08:41 | SURGERY PROGRESS NOTE ---
DATE: 08/23/2016 DATE: 08/23/2016. SUBJECTIVE: Ms. Aviles is seen today. The drain that was placed in the subcutaneous tissues around her left kidney continues to drain. This grew out an E. coli which interestingly enough was different than her urine culture. The drainage from the PleurX catheter was only 15 mL this morning. We never grew anything out from that. We are going to remove this today at the bedside. I had a long talk with Ms. Aviles. She does have a deep vein thrombosis and Dr. Madden has been consulted for a possible inferior vena cava filter. The patient's pleural fluid creatinine at the outside lab was measured to be 2.2 mg per deciliter. At the time this was drained her serum creatinine was 2.4. The ratio of less than 1 would argue against this being a urinothorax. As we did not grow anything and the drainage is low we pulled her PleurX catheter today. The CT scan shows fairly good resolution of most of the fluid around her kidney and her subcutaneous tissues. We will leave the indwelling catheter to the discretion of the urologist about when to pull it. We will check a chest x-ray in the department today. DESTIN
--- NOTE | 2016-08-23 09:49 | DIAGNOSTIC IMAGING REPORT ---
CHEST 2 VIEWS ROUTINE CLINICAL HISTORY: pleural effusion dyspnea COMPARISON STUDY: 08/17/2016 FINDINGS: Interval development of a parenchymal infiltrate left midlung. Mild left basilar atelectasis. No evidence pneumothorax. Right lung is clear. IMPRESSION: Interval development of a left midlung infiltrate. Mild atelectasis left base. Electronically signed by: Georges Conway M.D. 08/23/2016 9:48 AM Dictated Date/Time: 08/23/2016 9:46 AM
--- NOTE | 2016-08-23 12:15 | Progress Note ---
Subjective Date of Service: Aug 23, 2016. Subjective Pt evaluation today including: conversation w/ patient, physical exam, chart review No fevers/chills. No flank pain. Problem List Medical Problems: (1) Anemia Status: Acute (2) Contusion of rib on left side Status: Acute (3) Creatinine elevation Status: Acute (4) Visual hallucination Status: Acute Review of Systems Constitutional: No chills, No fatigue, No fever, No problem reported, No see HPI, No sweats, No weakness, No weight loss Respiratory: No cough, No dyspnea at rest, No dyspnea on exertion, No hemoptysis, No problem reported, No see HPI, No shortness of breath, No sputum, No wheezing Cardiac: No PND, No chest pain, No claudication, No edema, No orthopnea, No palpitations, No problem reported, No see HPI Abdomen: No GI bleeding, No constipation, No diarrhea, No nausea, No pain, No problem reported, No see HPI, No vomiting Medications Medications (Trade) Dose Ordered Sig/Daquan Route Start Time Stop Time Status Last Admin Dose Admin Docusate Sodium (coLACE CAP) 100 mg BID PO 08/22/16 20:00 09/21/16 19:59 08/22/16 20:26 100 MG Objective Vital Signs Date Time Temp Pulse Resp B/P Pulse Ox O2 Delivery O2 Flow Rate FiO2 08/23/16 09:00 Room Air 08/23/16 08:33 67 08/23/16 07:55 36.6 58 20 124/71 96 Room Air 08/23/16 00:18 36.6 70 20 100/55 96 Room Air 08/23/16 00:15 Room Air 08/22/16 20:24 64 136/81 08/22/16 16:52 36.5 100 18 94/59 95 Room Air 08/22/16 15:45 95 Room Air Physical Exam General Appearance: WD/WN Eyes: normal inspection ENT: normal ENT inspection Neck: supple, no JVD Respiratory/Chest: chest non-tender, + decreased breath sounds Cardiovascular: + irregularly irregular Abdomen: normal bowel sounds Extremities: normal range of motion Neurologic/Psychiatric: science professor 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 tested Laboratory Results Last 24 Hours Test 08/22/16 15:54 08/22/16 23:05 08/23/16 05:59 Activated Partial Thromboplast Time 74.8 SECONDS 72.7 SECONDS 55.9 SECONDS Partial Thromboplastin Ratio 2.[address] SCAN OF THE ABDOMEN AND PELVIS WITHOUT CONTRAST CLINICAL HISTORY: Retroperitoneal abscess. COMPARISON STUDY: 08/18/2016 TECHNIQUE: CT scan of the abdomen and pelvis was performed from the lung bases to the proximal femurs. Images are reviewed in the axial, sagittal, and coronal planes. IV contrast was not administered for this examination. CT DOSE: 1662.92 mGy.cm FINDINGS: Lower chest: There is dependent right basilar atelectasis. There is dependent left basilar atelectasis/consolidation with mild thickening. There is a small left pleural effusion and trace right pleural effusion. The heart is mildly enlarged. A left chest tube is visualized. Liver: The unenhanced liver is normal in size, contour, and attenuation. There is no intrahepatic biliary ductal dilatation. Gallbladder: Surgically absent Spleen: Normal in size and attenuation. Pancreas: Unremarkable. Adrenal glands: Unremarkable. Kidneys: There is a punctate nonobstructing right renal calculus. There is a punctate left renal calculus. There is a 15 mm calculus at the level the left ureterovesical junction. There is left-sided perinephric stranding. There is been interval placement of a drainage catheter into the left flank/retroperitoneal abscess. The abscess is slightly smaller than on the immediate post drainage study. There is a small perinephric fluid collection, consistent with a small perinephric abscess. Bowel: There are postsurgical changes of an anterior hernia repair. There are no transition zones indicate bowel obstruction. There is colonic diverticulosis. There is mild sigmoid diverticulitis involving the distal descending colon.. Peritoneum: No free air is visualized. There is trace fluid within the pelvis Vasculature: The abdominal aorta is normal in course and caliber. There are extensive arterial calcifications present. Adenopathy: None. Pelvic viscera: The uterus appears surgically absent. There is a 31 mm right ovarian cystic lesion. Skeletal structures: No destructive osseous lesions are seen. IMPRESSION: 1. Small left pleural effusion. Left basilar chest tube. Associated left basilar atelectasis/consolidation. 2. Interval decrease in the size of the left retroperitoneal and flank abscess status post placement of a drainage catheter. 3. 15 mm calculus at the level the left ureterovesical junction. Punctate left intrarenal calculus 4. Mild diverticulitis involving the distal descending colon 5. No evidence of bowel obstruction. No evidence of free air 6. Stable 31 mm right ovarian cystic lesion Electronically signed by: Chadwick Morris M.D. 08/22/2016 8:01 AM Dictated Date/Time: 08/22/2016 7:51 AM CHEST 2 VIEWS ROUTINE CLINICAL HISTORY: pleural effusion dyspnea COMPARISON STUDY: 08/17/2016 FINDINGS: Interval development of a parenchymal infiltrate left midlung. Mild left basilar atelectasis. No evidence pneumothorax. Right lung is clear. IMPRESSION: Interval development of a left midlung infiltrate. Mild atelectasis left base. Electronically signed by: Georges Conway M.D. 08/23/2016 9:48 AM Dictated Date/Time: 08/23/2016 9:46 AM * Name: RACHELE WASHINGTON Study Date: 06/20/2016 07:38 AM BP: 135/63 mmHg * Patient Location: 2E\S\E211\S\1 HR: 73 * : 1940 (M/d/yyyy) Gender: Female Height: 66 in * Age: 75 yrs Ethnicity: [place] Weight: 265 lb * Ordering Physician: Digna Todd * Referring Physician: Self, Referred * Performed By: Celio Montez RCS * * Reason For Study: CHF * BSA: 2.3 m2 * -- Conclusions -- * 1. Normal LV size and wall thickness. * 2. Low normal LV function. LVEF 45-50%. Paradoxical septal motion. * 3. Normal RV size and function. * 4. Mild aortic valve sclerosis without stenosis. * 5. Normal estimted PA and RA pressures. * 6. No prior studies for comparison Assessment and Plan 76yo female admitted from [facility] with complaints of increased confusion on 08/11/2016 Per family sepsis 2nd to UTI and retroperitoneal abscess of left retroperitoneal space - sepsis resolved. e. coli UTI - resolved. metabolic encephalopathy 2nd to sepsis and UTI - resolved. left pleural effusion - s/p pleurX catheter insertion, POD #6. Initial fluid studies concerning for exudative effusion. Cell counts and gram stain not concerning for infectious process. Fluid creatinine normal ruling out that the effusion was urine-based. Cytology negative. PleurX management per Dr. Zhu. Pulmonary symptoms (dyspnea, etc) resolved. Left sided renal stone - unchanged in position on CT. For cystoscopy and possible stent placement tomorrow. Hold heparin gtt 2 hours prior to cystoscopy. Echo from earlier this year showed mildly reduced LV systolic fn, EF 45 percent. Will get Cards consult for pre op eval. s/p removal of pleurex catheter today left sided perinephric and retroperitoneal fluid collection - 2nd to multidrug resistant e. coli. s/p I/D by Dr. Alexander, then ultimately placement of drain by radiology (Dr. Novak). Sens to keflex, rocephin, others. WBC count has normalized and no fever/chills. UTI, 1.8cm proximal left ureteral stone, retroperitoneal abscess repeated Ct today, Improving retroperitoneal abscess per CT scan, they recs to leave drain in place for now. Keflex for a total of 10 days for UTI (today is 9/10 days). protein calorie malnutrition - moderate - boost, MVI, etc. CKD stage 4 stable early hypothyroidism - TSH x 2 have been high. Started synthroid replacement at 25mcg daily. Repeat TSH 6 weeks. rib fractures on left - due to fall - healing. chronic anemia - H/H stable. a. fib - rates controlled. chronic systolic CHF - compensated. b/l LE DVTs - age indeterminate on doppler study. She had been on eliquis up until about 6-8 weeks ago at which point it was d/c due to concern of retroperitoneal hemorrhage from trauma. After release from [facility] she went to rehab. Family reports she had copious edema of the legs in rehab. Perhaps she developed the DVTs then. 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 Started heparin infusion. Watch carefully for ANY bleeding from the retroperitoneal space. Daily CBC. Continued [facility] stay due to: multiple IV medications needed, other (pleurX catheter placement, drain placement, DVTs) Discharge planning: other (assisted living)
--- NOTE | 2016-08-23 14:14 | Anesthesiology Progress Note ---
Anesthesia Progress Note Date of Service Aug 23, 2016. Progress Notes Ms. Aviles is slated to undergo a left laser litho with stent placement. Allergies to adhesives, digoxin, and morphine. PSH significant for R REYNA and b/ l TKA. Also with a cardiac cath in 2005 that was normal per patient report. Patient presented to [facility] on 08/11/16 with AMS 2/2 UTI. Hospital stay notable for left pleural effusion with pleurx catheter insertion and subsequent removal today 08/23/[address] Zhu. Patient also with a left retroperitoneal flank abscess though to be originating from ureteral stone (15mm calculus at level of the left uretervesical junction). Patient with improving SOB now that effusion has been drained. PMH significant for CHF (EF 40-45%), PE and DVT ( currently on heparin ggt), A fib, TIA in 2011 (no residual deficits), NIDDM, Stage III CKD, anemia and obesity. Patient is a never smoker. EKG notable for A fib with HR of 87. Airway exam notable for thick neck and very poor dentition with many missing teeth. Plan for general anesthesia. Consent obtained. Questions answered.
--- NOTE | 2016-08-23 14:57 | Medical Consult ---
Consultation Date of Consultation: Aug 23, 2016. Attending Physician: Brian Haynes MD, PhD History of Present Illness 76 y/o female with left ureteral stone, left retroperitoneal abscess and left pleural effusion. Pleur-X cath was removed this morning. She has a history of DVT/PE including while on coumadin in the past. She was changed to Eliquis in the last few months, after several falls the decision was made to stop anticoagulation. Urology is planning intervention for the stone, we were asked to evaluate her for IVCF. Past Medical/Surgical History Medical Problems: (1) Altered mental status (2) Atrial fibrillation (3) Cardiomyopathy (4) Catheter-associated urinary tract infection (5) CKD (chronic kidney disease) (6) DM w/o complication type II (7) DVT (deep venous thrombosis) (8) Dyslipidemia (9) Lymphedema (10) Obesity (11) PE (pulmonary embolism) (12) TIA (transient ischemic attack) (13) UTI (urinary tract infection) Surgical Problems: (1) H/O cardiac catheterization (2) Hip joint replacement status (3) S/P TKR (total knee replacement) Family History Patient reports no known family medical history. Social History Smoking Status: Never Smoker Drug Use: none Marital Status: Housing Status: lives alone Occupation Status: retired Allergies Coded Allergies: Morphine (Unverified Allergy, Intermediate, VOMITING, 08/11/16) Adhesives (Verified Allergy, Unknown, RASH, 08/11/16) Digoxin (Unverified Adverse Reaction, Severe, DIGTOXIC, 08/11/16) Current Inpatient Medications Current Inpatient Medications Medications (Trade) Dose Ordered Sig/Daquan Route Start Time Stop Time Status Last Admin Dose Admin Acetaminophen (Tylenol Tab) 650 mg Q4H PRN PO 08/11/16 19:00 09/10/16 18:59 08/21/16 19:51 650 MG Ondansetron HCl (Zofran Inj) 4 mg Q6H PRN IV 08/11/16 19:00 09/10/16 18:59 Aspirin (Ecotrin Tab) 81 mg DAILY PO 08/12/16 08:00 09/11/16 08:59 Future Hold 08/15/16 08:18 81 MG Atorvastatin Calcium (Lipitor Tab) 40 mg DAILY PO 08/12/16 08:00 09/11/16 08:59 08/23/16 08:31 40 MG Carvedilol (Coreg Tab) 25 mg BID PO 08/11/16 20:03 09/10/16 20:59 08/23/16 08:32 25 MG Diphenoxylate HCl/ Atropine (Lomotil Tab) 1 tab Q6 PRN PO 08/11/16 19:00 09/10/16 18:59 Docusate Sodium (coLACE CAP) 100 mg DAILY PRN PO 08/11/16 20:15 09/10/16 20:14 08/20/16 05:34 100 MG Furosemide (Lasix Tab) 20 mg DAILY PO 08/12/16 08:00 09/11/16 08:59 08/23/16 08:31 20 MG Multivitamins (Multivitamin Tab) 1 tab DAILY PO 08/12/16 08:00 09/11/16 08:59 08/23/16 08:32 1 TAB Multivitamins/ Minerals (Multivitamin W/ Minerals Tab) 1 tab DAILY PO 08/12/16 08:00 09/11/16 08:59 08/19/16 07:52 1 TAB Ondansetron HCl (Zofran Odt) 4 mg Q6H PRN SL 08/11/16 19:00 09/10/16 18:59 08/13/16 05:05 4 MG Miconazole Nitrate (Desenex Powder) 1 appln PRN PRN EXT 08/12/16 09:45 09/11/16 09:44 Sertraline HCl (Zoloft Tab) 50 mg QPM PO 08/12/16 21:00 09/11/16 20:59 08/22/16 20:28 50 MG Enteral Nutritional Formula (Boost Glucose Control) 1 can DAILY@1000 PO 08/14/16 10:00 09/13/16 09:59 Cephalexin Monohydrate (Keflex Cap) 250 mg BID PO 08/14/16 15:30 08/24/16 15:29 08/23/16 08:31 250 MG Levothyroxine Sodium (Synthroid Tab) 25 mcg DAILYBB PO 08/17/16 06:30 09/16/16 06:29 08/23/16 05:57 25 MCG Ranitidine HCl (zANTac TAB) 150 mg HS PO 08/18/16 21:00 09/17/16 20:59 08/22/16 20:28 150 MG Tramadol HCl 75 mg 75 mg Q6H PRN PO 08/18/16 17:00 09/17/16 16:59 08/23/16 08:30 75 MG Heparin Sodium/ Dextrose (Heparin 25,000 Unit/500ml D5W) 500 ml @ 28 mls/hr [id number] PRN IV 08/19/16 16:00 09/18/16 15:59 08/23/16 08:02 28 MLS/HR Bisacodyl (Dulcolax Supp) 10 mg DAILY PRN OH 08/21/16 11:30 09/20/16 11:29 Magnesium Oxide (Mag-Ox Tab) 400 mg BID PO 08/22/16 08:00 09/21/16 07:59 08/23/16 08:32 400 MG Docusate Sodium (coLACE CAP) 100 mg BID PO 08/22/16 20:00 09/21/16 19:59 08/22/16 20:26 100 MG Polyethylene (Miralax Powder Packet) 17 gm DAILY PRN PO 08/22/16 10:00 09/21/16 09:59 Physical Exam Date Time Temp Pulse Resp B/P Pulse Ox O2 Delivery O2 Flow Rate FiO2 08/23/16 09:00 Room Air 08/23/16 08:33 67 08/23/16 07:55 36.6 58 20 124/71 96 Room Air 08/23/16 00:18 36.6 70 20 100/55 96 Room Air 08/23/16 00:15 Room Air 08/22/16 20:24 64 136/81 08/22/16 16:52 36.5 100 18 94/59 95 Room Air 08/22/16 15:45 95 Room Air General Appearance: no apparent distress Back: + pertinent finding (pigtail cath/draiange bag from left flank) Neurologic/Psych: normal mood/affect, oriented x 3 Laboratory Results Last 24 Hours Test 08/22/16 15:54 08/22/16 23:05 08/23/16 05:59 Activated Partial Thromboplast Time 74.8 SECONDS 72.7 SECONDS 55.9 SECONDS Partial Thromboplastin Ratio 2.9 2.8 2.2 IMPRESSION: 1. Deep venous thrombus within the left common femoral, left superficial femoral and right popliteal veins. This thrombus is age indeterminate. 2. Largely obscured calf vessels due to suboptimal penetration. Electronically signed by: Elian Novak M.D. Assessment & Plan bilateral lower extremity DVT Would not recommend filter placement at this time. She had been off anticoagulation for sometime and her DVT is likely chronic. Her heparin can be held for procedures and the decision for fpc anticoagulation can be made with her family. If a filter is further considered, would recommend consulting Dr. Rain for a removable device.
--- NOTE | 2016-08-23 15:48 | CARDIOLOGY CONSULTATION ---
DATE OF CONSULTATION: 08/23/2016 DATE OF CONSULTATION: 08/23/2016. PERTINENT HISTORY: Mrs. Aviles is a 76-year-old white female well known to me from the outpatient setting. The patient is scheduled to undergo general anesthesia for cystoscopy and placement of a ureteral stent tomorrow. This consultation was ordered as a preoperative evaluation. The patient has a very complex past and recent medical history. Back in May, the patient developed mental status changes and was found to have a fungal UTI. She had had several falls leading up to hospitalization and therefore, it was decided to discontinue Eliquis, which she was taking for her permanent atrial fibrillation. The patient was readmitted in June with another fall sustaining left rib fracture and left retroperitoneal hematoma. [facility] and may have developed a deep venous thrombosis at that time. She recently admitted on 08/11/2016 again with mental status changes. She was found to have an E. coli UTI and sepsis. She developed a left retroperitoneal abscess likely associated with ureteral stone in the left ureterovesical junction. During this hospitalization, the patient developed a large left-sided pleural effusion. She had placement of a PleurX catheter which was just removed today. Of note, the patient was able to ambulate in the hallways without complaints of chest discomfort or dyspnea. The patient carries a history of permanent atrial fibrillation. As above, her Eliquis was recently discontinued due to frequent falls. The patient has a known low normal left ventricular ejection fraction. Her ejection fraction varies from 45-55% on echocardiograms. Echocardiogram performed on June 20 noted an ejection fraction of 45-50%. The patient also carries a history of medically managed coronary artery disease. Cardiac catheterization in July 2007 revealed a total occlusion of PDA with good lateralization. The patient also carries a history of peripheral vascular disease. In 2010, she had a right external iliac to the right profunda femoral artery bypass performed. She also had bypass from right femoral artery to the posterior tibial artery. Currently, the patient is resting comfortably in bed without complaints. PAST MEDICAL HISTORY: 1. Coronary artery disease -- 100% PDA - July 2007. 2. Hypertension. 3. Hypercholesterolemia. 4. Permanent atrial fibrillation. 5. Peripheral vascular disease - October 2010 -- right lower extremity bypass. 6. Cerebrovascular disease -- January 2011, 100% LICA stenosis. 7. Normal Lexiscan -- July 2014. 8. Diastolic dysfunction. 9. Chronic obstructive pulmonary disease. 10. Chronic renal failure. 11. History of TIA November 2012. 12. Diabetes mellitus. 13. GERD. 14. History of DVT/PE -- 2004. 15. Cholecystectomy -- 2012. 16. Bilateral TKR. 17. Left THR. MEDICATIONS: 1. Heparin drip. 2. Coreg 35 mg b.i.d. 3. Lasix 20 mg daily. 4. Lipitor 40 mg at bedtime. 5. Synthroid 0.025 mg daily. 6. Zoloft 50 mg per day. 7. Magnesium oxide 400 mg b.i.d. 8. Zantac 150 mg daily. ALLERGIES: 1. ADHESIVES. 2. DIGOXIN. 3. MORPHINE. SOCIAL HISTORY: The patient is a and lives alone. Does not use tobacco or alcohol. FAMILY HISTORY: Father in his 60s of an MA. Mother at 79 from CVA. REVIEW OF SYSTEMS: A 10-point review of systems was negative except for that described above. PHYSICAL EXAMINATION: GENERAL: This is a mildly obese white female lying supine in bed without complaints. VITAL SIGNS: Blood pressure is 124/70 with an irregular pulse of 70, respiration rate is 20. The patient is afebrile at 36.6 degrees Celsius. Saturations 96% on room air. HEAD, EYES, EARS, NOSE, AND THROAT: Negative. NECK: Supple with full carotid upstrokes. No obvious bruits. Jugular venous pressure is flat at 90 degrees. There is no thyromegaly. CARDIOVASCULAR EXAMINATION: Reveals an irregular, irregular rhythm with distant heart sounds. No obvious murmurs. LUNGS: Clear without rales, rhonchi, or wheezes. ABDOMEN: Obese without bruits. EXTREMITIES: Reveal intact radial artery pulses bilaterally. 2+ pitting edema is seen in the pretibial regions bilaterally. Hyperpigmentation changes are noted. IMPRESSION: Mrs. Conde is to undergo general anesthesia and a cystoscopy and placement of a left ureteral stent. The patient has survived despite significant medical illnesses over the last 3 months. She is now ambulatory in the hallway without limiting cardiopulmonary symptoms. I feel she is an acceptable cardiac risk to proceed with surgery tomorrow. PLAN: 1. Continue usual cardiac medications. 2. Acceptable cardiac risk for surgery as explained above. 3. Further recommendations depending on her clinical course.
[2016-08-23 16:15] VITALS: O2SAT 96
[2016-08-23 20:30] VITALS: BP 104/54; PULSE 63
[2016-08-23] MEDS: RANITIDINE HCL 150 MG TAB PO SCH (20:35)
[2016-08-23] MEDS: SERTRALINE HCL 50 MG TAB PO SCH (20:35)
[2016-08-24] VITALS (8 sets, daily range): BP systolic 96–145; BP diastolic 52–127; PULSE 57–119; TEMP 36.3–36.5; O2SAT 92–100
[2016-08-24] MEDS: LEVOTHYROXINE 25 MCG TAB PO SCH (05:55)
[2016-08-24 06:42] LABS: PARTIAL THROMBOPLASTIN RATIO 1.8
[2016-08-24 07:05] LABS: BASO % 0.4 %; BASO ABS # 0.03 K/uL (0-0.2); COMPLETE YES; HEMATOCRIT 32.5 % (37-47); IG% 0.5 %; LYMPH % 33.4 %; LYMPH ABS # 2.46 K/uL (1.2-3.4); MEAN CELL VOLUME 90.8 fL (80-100); MEAN CORPUSCULAR HEMOGLOBIN 27.9 pg (25-34); MEAN CORPUSCULAR HGB CONC 30.8 g/dl (32-36); MEAN PLATELET VOLUME 9.5 fL (7.4-10.4); MONO % 11.8 %; NEUT % 51.9 %; PLATELET COUNT 281 K/uL (130-400); RED BLOOD COUNT 3.58 M/uL (4.2-5.4); WHITE BLOOD COUNT 7.36 K/uL (4.8-10.8)
[2016-08-24 07:11] LABS: BUN/CREATININE RATIO 14.2 (10-20); CALCIUM 8.4 mg/dl (8.5-10.1); CREATININE 1.5 mg/dl (0.60-1.20); POTASSIUM 4.1 mmol/L (3.5-5.1)
[2016-08-24] MEDS: DOCUSATE SODIUM 100 MG CAP PO SCH ×2 (07:30→20:00)
[2016-08-24] MEDS: CARVEDILOL 25 MG TAB PO SCH ×2 (07:32→20:00)
[2016-08-24] MEDS: CEPHALEXIN MONOHYDRATE 250 MG CAP PO SCH (07:33)
[2016-08-24] MEDS: FUROSEMIDE 20 MG TAB PO SCH (07:35)
[2016-08-24] MEDS: ATORVASTATIN 40 MG TAB PO SCH (07:36)
[2016-08-24] MEDS: MAGNESIUM OXIDE 400 MG TAB PO SCH ×2 (07:36→20:02)
[2016-08-24] MEDS: MULTIVITAMIN TAB PO SCH (07:37)
[2016-08-24] MEDS: BOOST GLUCOSE CONTROL PO SCH (07:41)
[2016-08-24] MEDS: CEROVITE ADV FORMULA TAB PO SCH (07:41)
[2016-08-24] MEDS ORDERED: CEFAZOLIN IV 2,000 MG/60 ML D5W IV SCH (08:00)
[2016-08-24] MEDS ORDERED: GENTAMICIN INJ 80 MG in DEXTROSE 5% 100ML 100 ML IV SCH (08:00)
--- NOTE | 2016-08-24 08:21 | Progress Note ---
Subjective Date of Service: Aug 24, 2016. Subjective Pt evaluation today including: conversation w/ patient, chart review, lab review Voiding: no voiding problems Pt denies pain this morning. Denies n/v. Denies dysuria or hematuria. H&H is stable. Heparin has been held for OR later this morning. Problem List Medical Problems: (1) Anemia Status: Acute (2) Contusion of rib on left side Status: Acute (3) Creatinine elevation Status: Acute (4) Visual hallucination Status: Acute Review of Systems Constitutional: No chills, No fever Respiratory: No shortness of breath Cardiac: No chest pain Abdomen: No nausea, No pain, No vomiting Female : No dysuria, No hematuria Heme: No abnormal bleeding/bruising Objective Vital Signs Date Time Temp Pulse Resp B/P Pulse Ox O2 Delivery O2 Flow Rate FiO2 08/24/16 07:42 36.4 64 18 119/69 94 Room Air 08/24/16 00:01 Room Air 08/24/16 00:00 36.5 119 20 100/52 94 Room Air 08/23/16 20:30 63 104/54 08/23/16 16:15 96 Room Air 08/23/16 09:00 Room Air 08/23/16 08:33 67 Physical Exam General Appearance: no apparent distress Eyes: normal inspection ENT: hearing grossly normal Neck: no JVD Respiratory/Chest: no respiratory distress, no accessory muscle use Cardiovascular: no JVD Extremities: normal inspection Neurologic/Psychiatric: alert, normal mood/affect, oriented x 3 Skin: normal color Laboratory Results Last 24 Hours Test 08/24/16 06:18 08/24/16 06:28 Activated Partial Thromboplast Time 46.7 SECONDS Partial Thromboplastin Ratio 1.8 White Blood Count 7.36 K/uL Red Blood Count 3.58 M/uL Hemoglobin 10.0 g/dL Hematocrit 32.5 % Mean Corpuscular Volume 90.8 fL Mean Corpuscular Hemoglobin 27.9 pg Mean Corpuscular Hemoglobin Concent 30.8 g/dl Platelet Count 281 K/uL Mean Platelet Volume 9.5 fL Neutrophils (%) (Auto) 51.9 % Lymphocytes (%) (Auto) 33.4 % Monocytes (%) (Auto) 11.8 % Eosinophils (%) (Auto) 2.0 % Basophils (%) (Auto) 0.4 % Neutrophils # (Auto) 3.81 K/uL Lymphocytes # (Auto) 2.46 K/uL Monocytes # (Auto) 0.87 K/uL Eosinophils # (Auto) 0.15 K/uL Basophils # (Auto) 0.03 K/uL RDW Standard Deviation 59.1 fL RDW Coefficient of Variation 17.9 % Immature Granulocyte % (Auto) 0.5 % Immature Granulocyte # (Auto) 0.04 K/uL Sodium Level 142 mmol/L Potassium Level 4.1 mmol/L Chloride Level 104 mmol/L Carbon Dioxide Level 33 mmol/L Anion Gap 5.0 mmol/L Blood Urea Nitrogen 21 mg/dl Creatinine 1.50 mg/dl Est Creatinine Clear Calc Drug Dose 39.6 ml/min Estimated GFR () 38.3 Estimated GFR (Non- 33.0 BUN/Creatinine Ratio 14.2 Random Glucose 78 mg/dl Calcium Level 8.4 mg/dl Assessment and Plan A/P: UTI, 1.8cm proximal left ureteral stone, retroperitoneal abscess AFVSS. Recommend continuing Keflex for now. Consider IV abx for abscess? Retroperitoneal abscess ? from ureteral stone. Cysto with stent placement recommended at this time. Will plan for the OR later this morning for cysto and left URS with laser litho and stent placement. Risks and benefits of the procedure discussed with the pt. All questions answered. Pt agrees to the procedure at this time. Consent obtained. Will order ancef and gent pre-op May resume heparin after her procedure. Will continue to follow along with primary service at this time. Continued [facility] stay due to: multiple IV medications needed, other (pleurX catheter placement, drain placement, DVTs) Discharge planning: other (assisted living)
--- NOTE | 2016-08-24 08:31 | Surgery Progress Note ---
Subjective Date of Service: Aug 24, 2016. Pt. notes breathing is better, particularly with ambulation. Objective Vitals Date Time Temp Pulse Resp B/P Pulse Ox O2 Delivery O2 Flow Rate FiO2 08/24/16 07:42 36.4 64 18 119/69 94 Room Air 08/24/16 00:01 Room Air 08/24/16 00:00 36.5 119 20 100/52 94 Room Air 08/23/16 20:30 63 104/54 08/23/16 16:15 96 Room Air 08/23/16 09:00 Room Air 08/23/16 08:33 67 Physical Exam General: + well developed, + well nourished, No distress CV: + RRR Pulmonary: + pertinent finding (slight decrease at left base), No accessory muscle use, No respiratory distress Neurologic: + alert & oriented x 3 Assessment & Plan 76 year old female with left pleural effusion -pleurex placed on (08/16/16) -cytology (-) for malignancy -cultures (-) -pleurex removed (08/23/16) due to low output: -post-pull CXR shows no significant effusion -effusion may have been reactive from mauro-nephric abscess that is being managed by urology
--- NOTE | 2016-08-24 09:43 | CARDIOLOGY PROGRESS NOTE ---
DATE: 08/24/2016 SUBJECTIVE: Mrs. Aviles is resting comfortably in bed without complaints of chest pain, dyspnea, or palpitations. Has been ambulatory without complaints. OBJECTIVE: VITAL SIGNS: Blood pressure is 120/70 with an irregular pulse of 65. Respiratory rate is 18. The patient is afebrile at 36.4 degrees Celsius. Saturation is 94% on room air. NECK: Supple with full carotid upstrokes. There are no obvious bruits. Jugular venous pressure is flat at 90 degrees. No thyromegaly. CARDIOVASCULAR: Reveals an irregular, irregular rhythm with distant heart sounds. No obvious murmurs. LUNGS: Clear without rales, rhonchi, or wheezes. ABDOMEN: Obese without bruits. EXTREMITIES: Reveal intact radial artery pulses bilaterally. 2+ pitting edema is noted in the pretibial regions. Hyperpigmentation changes noted. DATA: CBC notes hemoglobin of 10.0, hematocrit 32.5, white count 7.3, and platelet count 281,000. Electrolytes note sodium of 142, potassium 4.1, chloride 104, bicarbonate 33, BUN 21, creatinine 1.5, glucose 78. PTT is 46.7. IMPRESSION AND PLAN: 1. Permanent atrial fibrillation - patient's heparin now on hold for her upcoming procedure. We will discuss long-term anticoagulation once she is stable as an outpatient. 2. Coronary artery disease -- 100% posterior descending artery at the time of cardiac catheterization in July 2007. 3. Hypertension -- controlled. 4. Hypercholesterolemia -- continue statin. 5. Peripheral vascular disease -- status post right lower extremity bypass in October 2010. 6. Cerebrovascular disease -- 100% left internal carotid artery stenosis, January 2011. 7. Diastolic dysfunction. 8. Chronic obstructive pulmonary disease. 9. Chronic renal failure. 10. Retroperitoneal abscess -- likely secondary to stone in the ureterovesical junction, for cystoscopy and possible stent placement today. 11. Cardiac risk -- patient is an acceptable cardiac risk for surgery as planned. She has been ambulatory without limiting symptoms.
[2016-08-24] MEDS ORDERED: PROPOFOL IV EMULSION 10 MG/ML 20 ML VIAL IV ONE (10:24)
[2016-08-24] MEDS ORDERED: MIDAZOLAM HCL 1 MG/ML 2ML VIAL ONE (10:24)
[2016-08-24] MEDS ORDERED: LIDOCAINE HCL 2% 2 ML VIAL (20MG/ML) ONE (10:24)
[2016-08-24] MEDS ORDERED: ONDANSETRON INJ 2 MG/ML 2 ML VIAL ONE (10:24)
[2016-08-24] MEDS ORDERED: FENTANYL CITRATE INJ 50 MCG/1 ML 2 ML VIAL ONE (10:24)
[2016-08-24] MEDS ORDERED: DEXAMETHASONE SOD INJ 4 MG/ML VIAL ONE (10:24)
[2016-08-24] MEDS ORDERED: LACTATED RINGER'S 1000ML 1,000 ML IV PRN (11:10)
[2016-08-24] MEDS ORDERED: ONDANSETRON INJ 2 MG/ML 2 ML VIAL IV PRN (11:15)
[2016-08-24] MEDS ORDERED: FENTANYL CITRATE INJ 50 MCG/1 ML 2 ML VIAL IV PRN (11:15)
[2016-08-24] MEDS ORDERED: CONRAY 30% 150ML BOTTLE ONE (11:22)
[2016-08-24] MEDS ORDERED: EpHEDrine SULFATE INJ 50 MG/ML AMP ONE ×2 (11:57→12:15)
--- NOTE | 2016-08-24 12:52 | [facility] Post Operative Brief Note ---
Immediate Operative Summary Operative Date Aug 24, 2016. Pre-Operative Diagnosis UTI, 1.8 cm proximal left ureteral stone, retroperitoneal abscess Post-Operative Diagnosis Same as pre-operative Procedure(s) Performed Cystoscopy, Left Retrograde Pyelography, Left Flexible Ureteroscopy, Laser Lithotripsy; Left Ureteral Stent Placement Surgeon Dr. Enrique Juan Photographer'S Model Surgeon(s) none Estimated Blood Loss 5 ml Findings Stone fragmented, no large residual fragments, no extravasation of contrast into retroperitoneum, good stent position on fluoroscopy Specimens no specimen per surgeon Drains 6 fr 26 cm JJ stent Anesthesia [facility] Complication(s) None Disposition Recovery Room / PACU
--- NOTE | 2016-08-24 13:23 | OPERATIVE REPORT ---
DATE OF OPERATION: 08/24/2016 PREOPERATIVE DIAGNOSIS: Left 1.8 cm renal pelvis stone, history of urinary tract infection and retroperitoneal abscess. POSTOPERATIVE DIAGNOSIS: Same. PROCEDURE: Cystoscopy, left retrograde pyelography, left flexible ureteroscopy with laser lithotripsy and ureteral stent placement. SURGEON: Dr. Enrique Juan. MATERIAL CLERK: None. ANESTHESIA: General anesthesia with laryngeal mask. COMPLICATIONS: None. ESTIMATED BLOOD LOSS: Minimal. DRAINS LEFT IN PLACE: Include a 6-Namibian 26 cm double-J left-sided ureteral stent in good position on fluoroscopy. SPECIMENS SENT TO PATHOLOGY: None. COMPLICATIONS: None. FINDINGS: Good stone fragmentation with no large residual stone fragments, good stent position on fluoroscopy, no extravasation of contrast on retrograde pyelography. BRIEF HISTORY: Ms. Aviles is a 76-year-old comorbid female well known to our service, who was admitted to the hospital for difficulties with a left-sided pleural effusion status post drainage and a left retroperitoneal abscess. She has also suffered from a DVT, PE and is currently on heparin, which is on hold for a few hours for the first surgery today. The patient has a large chronic ureteropelvic junction stone felt to be the nidus for all of her current difficulties and now that she is covered with intravenous antibiotics and relatively stabilized the plan is to proceed with drainage and hopefully intervention for stone. Please see progress notes from urologic service for further details. She has been covered with oral antibiotics and was covered with culture specific gentamicin and cefazolin intravenously. Care is discussed with patient and family who understand the very real risk of septic decompensation and further thromboembolic events in the perioperative period. SCDs were avoided due to the presence of bilateral DVTs on previous ultrasound. She is being brought to the operating room today for surgical management. OPERATION AND FINDINGS: PROCEDURE: The patient was properly identified and brought to the operative suite. After identification and appropriate consent on the chart, general anesthesia with laryngeal mask was initiated. The patient was prepped and draped in standard fashion for this procedure, although her lithotomy position was left with legs relatively straight and minimal flexion to avoid further encouraging thrombosis. A 22-Namibian rigid cystoscope was passed into the bladder under direct visualization and bladder was surveyed in its entirety demonstrating no intravesical lesions, papillary masses, or calculi. Ureteral orifices were noted in their normal anatomic location bilaterally and left-sided ureteral orifice was cannulated using an open-ended catheter. Gentle retrograde pyelography was performed demonstrating a normal ureter. A radiopacity in the left upper quadrant was found to be within the renal pelvis with a lack of dilation of the proximal collecting system consistent with the patient's preoperative CT imaging findings. No extravasation of contrast was appreciated. A sensor tip wire was able to be advanced up to the kidney without significant difficulty or resistance. This was followed by an Amplatz working wire. A 12/14 35 cm ureteral access sheath was placed into the mid ureter without resistance or difficulty followed by a fiberoptic flexible ureteroscope. A large stone was visualized within the renal pelvis as noted on imaging and using the 200 micron fiber, this was dusted into small pieces of stone. The majority of the stone simply dusted and was flushed via the access sheath. These fragments of stone which were relatively solid were fractured down until they were felt to be of no significant clinical signs. Progress was monitored on fluoroscopy and fragmentation continued until stones were felt to be both directly visualized and radiologically insignificant. After this was complete pyelography was repeated through the scope and again demonstrated a normal collecting system with no extravasation of contrast. Complete exit ureteroscopy including removal of the access sheath was performed demonstrating no ureteral tears or injuries. A cystoscope was backloaded over the safety wire and a 6-Namibian 26 cm double-J ureteral stent was advanced with a full coil being present within the renal pelvis and a full coil present within the bladder. Bladder was drained, the cystoscope was removed, anesthesia was reversed. The patient was transferred to recovery room in stable condition. FOLLOW-UP CARE: The patient will be readmitted to the floor for further management per the primary service. I attest to the content of the Intraoperative Record and any orders documented therein. Any exceptio ns are noted below.
--- NOTE | 2016-08-24 13:31 | Anesthesiology Progress Note ---
Anesthesia Post Op Note Date & Time Aug 24, 2016 at 13:30 Vital Signs Pain Intensity: 0 Vital Signs Past 12 Hours Date Time Temp Pulse Resp B/P Pulse Ox O2 Delivery O2 Flow Rate FiO2 08/24/16 13:15 55 15 145/74 99 Nasal Cannula 2 08/24/16 13:05 55 22 135/73 100 Mask 10 08/24/16 12:55 61 15 137/67 100 Mask 10 08/24/16 12:46 36.2 57 16 133/69 99 Mask 10 08/24/16 10:38 Room Air 08/24/16 08:00 Room Air 08/24/16 07:42 36.4 64 18 119/69 94 Room Air Notes Mental Status: alert / awake / arousable, participated in evaluation Pt Amnestic to Procedure: Yes Nausea / Vomiting: adequately controlled Pain: adequately controlled Airway Patency, RR, SpO2: stable & adequate BP & HR: stable & adequate Hydration State: stable & adequate Anesthetic Complications: no major complications apparent Pt doing very well.
--- NOTE | 2016-08-24 14:01 | DIAGNOSTIC IMAGING REPORT ---
RETROGRADE INCLUDES KUB HISTORY: Left-sided stone. Stent placement. FLUOROSCOPY TIME: 117 seconds. FINDINGS: 7 fluoroscopic spot images were submitted for review. Initial images demonstrate a large stone at the left ureteropelvic junction. There is retrograde opacification of the left ureter. There is a guidewire placed into the left ureter followed by placement of a left ureteral stent. The stent appears to be in good position approximately. IMPRESSION: Fluoroscopy provided for left ureteral stent placement.. Electronically signed by: Markus Escamilla M.D. 08/24/2016 1:59 PM Dictated Date/Time: 08/24/2016 1:57 PM
[2016-08-24] MEDS: HEPARIN 25,000 UNIT/500ML D5W 500 ML IV PRN (15:26)
[2016-08-24] MEDS: TRAMADOL HCL 50 MG TAB PO PRN (19:54)
[2016-08-24] MEDS: SERTRALINE HCL 50 MG TAB PO SCH (20:02)
[2016-08-24] MEDS: RANITIDINE HCL 150 MG TAB PO SCH (20:02)
[2016-08-25] VITALS: O2SAT 94
[2016-08-25 01:20] VITALS: BP 102/70; PULSE 69; TEMP 36.5; O2SAT 91
[2016-08-25] MEDS: HEPARIN 25,000 UNIT/500ML D5W 500 ML IV PRN (02:38)
[2016-08-25] MEDS: LEVOTHYROXINE 25 MCG TAB PO SCH (04:46)
[2016-08-25] MEDS: TRAMADOL HCL 50 MG TAB PO PRN (04:46)
[2016-08-25 07:01] LABS: BASO % 0.2 %; BASO ABS # 0.02 K/uL (0-0.2); COMPLETE YES; EOS % 1.2 %; HEMATOCRIT 33.6 % (37-47); IG% 0.2 %; MEAN CELL VOLUME 92.6 fL (80-100); MEAN CORPUSCULAR HEMOGLOBIN 28.4 pg (25-34); MEAN CORPUSCULAR HGB CONC 30.7 g/dl (32-36); MEAN PLATELET VOLUME 9.6 fL (7.4-10.4); MONO % 9.1 %; NEUT % 70.3 %; PLATELET COUNT 254 K/uL (130-400); RED BLOOD COUNT 3.63 M/uL (4.2-5.4); WHITE BLOOD COUNT 8.95 K/uL (4.8-10.8)
[2016-08-25 07:14] LABS: PARTIAL THROMBOPLASTIN RATIO 2.2
[2016-08-25 07:38] LABS: CALCIUM 8.2 mg/dl (8.5-10.1); CREATININE 1.6 mg/dl (0.60-1.20)
--- NOTE | 2016-08-25 07:59 | Surgery Progress Note ---
Subjective Date of Service: Aug 25, 2016. Pt. notes breathing feels good. No SOB. Objective Vitals Date Time Temp Pulse Resp B/P Pulse Ox O2 Delivery O2 Flow Rate FiO2 08/25/16 01:20 36.5 69 20 102/70 91 Room Air 08/25/16 00:00 94 Room Air 08/24/16 19:57 65 96/58 08/24/16 19:20 94 Room Air 08/24/16 15:48 36.3 65 18 113/61 92 Room Air 08/24/16 14:47 36.5 57 18 145/67 100 2.0 08/24/16 14:09 36.3 57 18 /127 100 2.0 08/24/16 13:51 36.3 57 20 127/87 98 2.0 08/24/16 13:35 59 17 153/70 100 Nasal Cannula 2 08/24/16 13:25 36.3 57 17 155/73 100 Nasal Cannula 2 08/24/16 13:15 55 15 145/74 99 Nasal Cannula 2 08/24/16 13:05 55 22 135/73 100 Mask 10 08/24/16 12:55 61 15 137/67 100 Mask 10 08/24/16 12:46 36.2 57 16 133/69 99 Mask 10 08/24/16 10:38 Room Air 08/24/16 08:00 Room Air Physical Exam General: + well developed, + well nourished CV: + RRR Pulmonary: + pertinent finding (slight decrease at bases), No accessory muscle use, No respiratory distress Neurologic: + alert & oriented x 3 Assessment & Plan 76 year old female with left pleural effusion -pleurex placed on (08/16/16) -cytology (-) for malignancy -cultures (-) -pleurex removed (08/23/16) due to low output: -post-pull CXR showed no significant effusion -effusion may have been reactive from mauro-nephric abscess that is being managed by urology -will see pt. in office 1-2 weeks following d/c with repeat CXR (office will call to arrange)
[2016-08-25 08:00] VITALS: BP 120/72; PULSE 67; TEMP 36.6; O2SAT 91
[2016-08-25] MEDS ORDERED: BOOST GLUCOSE CONTROL PO SCH (08:00)
[2016-08-25] MEDS ORDERED: ASPIRIN 81 MG ECTAB PO SCH (08:00)
[2016-08-25] MEDS: CEROVITE ADV FORMULA TAB PO SCH (08:00)
[2016-08-25] MEDS: DOCUSATE SODIUM 100 MG CAP PO SCH (08:25)
[2016-08-25] MEDS: MAGNESIUM OXIDE 400 MG TAB PO SCH (08:26)
[2016-08-25] MEDS: CARVEDILOL 25 MG TAB PO SCH (08:27)
[2016-08-25] MEDS: FUROSEMIDE 20 MG TAB PO SCH (08:28)
[2016-08-25] MEDS: MULTIVITAMIN TAB PO SCH (08:28)
[2016-08-25] MEDS: ATORVASTATIN 40 MG TAB PO SCH (08:28)
--- NOTE | 2016-08-25 08:32 | Anesthesiology Progress Note ---
Anesthesia Post Op Note Date & Time Aug 25, 2016 at 08:31 Vital Signs Pain Intensity: 6.0 Vital Signs Past 12 Hours Date Time Temp Pulse Resp B/P Pulse Ox O2 Delivery O2 Flow Rate FiO2 08/25/16 08:00 36.6 67 18 120/72 91 Room Air 08/25/16 01:20 36.5 69 20 102/70 91 Room Air 08/25/16 00:00 94 Room Air Notes Mental Status: alert / awake / arousable, participated in evaluation Pt Amnestic to Procedure: Yes Nausea / Vomiting: adequately controlled Pain: adequately controlled Airway Patency, RR, SpO2: stable & adequate BP & HR: stable & adequate Hydration State: stable & adequate Anesthetic Complications: no major complications apparent
--- NOTE | 2016-08-25 08:44 | Progress Note ---
Subjective Date of Service: Aug 25, 2016. Subjective Pt evaluation today including: conversation w/ patient, conversation w/ family (daughter Sita), physical exam, chart review, lab review Voiding: no voiding problems 76 year old female POD#1 cystoscopy left retrograde pyelography, left ureteroscopy with laser litho and left ureteral stent placement by Dr. Juan for 1.8 cm stone for hx of UTI and retroperitoneal abscess. She is doing well post-op. Denies pain, tolerating diet. Urine is clear. She does have some complaints of bilateral feet numbness- her RN was made aware. Retroperitoneal drain intact. Drained approx 75 ml of serosang drainage overnight. Chest tube is out. Afebrile, mildly bradycardic and hypotensive at times. White count normal and hemodynamically stable. Creatinine is elevated at 1.6. Problem List Medical Problems: (1) Anemia Status: Acute (2) Contusion of rib on left side Status: Acute (3) Creatinine elevation Status: Acute (4) Visual hallucination Status: Acute Review of Systems Constitutional: No chills, No fever ENT: No hearing loss Respiratory: No cough, No shortness of breath Cardiac: No chest pain Abdomen: No nausea, No pain Female : No dysuria, No hematuria, No urinary frequency Neurologic: + numbness/tingling (bilateral feet) Heme: No abnormal bleeding/bruising Objective Vital Signs Date Time Temp Pulse Resp B/P Pulse Ox O2 Delivery O2 Flow Rate FiO2 08/25/16 08:00 36.6 67 18 120/72 91 Room Air 08/25/16 01:20 36.5 69 20 102/70 91 Room Air 08/25/16 00:00 94 Room Air 08/24/16 19:57 65 96/58 08/24/16 19:20 94 Room Air 08/24/16 15:48 36.3 65 18 113/61 92 Room Air 08/24/16 14:47 36.5 57 18 145/67 100 2.0 08/24/16 14:09 36.3 57 18 /127 100 2.0 08/24/16 13:51 36.3 57 20 127/87 98 2.0 08/24/16 13:35 59 17 153/70 100 Nasal Cannula 2 08/24/16 13:25 36.3 57 17 155/73 100 Nasal Cannula 2 08/24/16 13:15 55 15 145/74 99 Nasal Cannula 2 08/24/16 13:05 55 22 135/73 100 Mask 10 08/24/16 12:55 61 15 137/67 100 Mask 10 08/24/16 12:46 36.2 57 16 133/69 99 Mask 10 08/24/16 10:38 Room Air Physical Exam General Appearance: WD/WN, no apparent distress Eyes: normal inspection ENT: hearing grossly normal Neck: no JVD Respiratory/Chest: no respiratory distress, no accessory muscle use Abdomen: soft Extremities: no pedal edema, no calf tenderness Neurologic/Psychiatric: alert, normal mood/affect, oriented x 3 Skin: normal color, warm/dry Laboratory Results Last 24 Hours Test 08/24/16 13:10 08/24/16 20:19 08/25/16 06:44 Bedside Glucose 75 mg/dl Activated Partial Thromboplast Time 52.3 SECONDS 56.1 SECONDS Partial Thromboplastin Ratio 2.0 2.2 White Blood Count 8.95 K/uL Red Blood Count 3.63 M/uL Hemoglobin 10.3 g/dL Hematocrit 33.6 % Mean Corpuscular Volume 92.6 fL Mean Corpuscular Hemoglobin 28.4 pg Mean Corpuscular Hemoglobin Concent 30.7 g/dl Platelet Count 254 K/uL Mean Platelet Volume 9.6 fL Neutrophils (%) (Auto) 70.3 % Lymphocytes (%) (Auto) 19.0 % Monocytes (%) (Auto) 9.1 % Eosinophils (%) (Auto) 1.2 % Basophils (%) (Auto) 0.2 % Neutrophils # (Auto) 6.29 K/uL Lymphocytes # (Auto) 1.70 K/uL Monocytes # (Auto) 0.81 K/uL Eosinophils # (Auto) 0.11 K/uL Basophils # (Auto) 0.02 K/uL RDW Standard Deviation 60.7 fL RDW Coefficient of Variation 17.6 % Immature Granulocyte % (Auto) 0.2 % Immature Granulocyte # (Auto) 0.02 K/uL Sodium Level 140 mmol/L Potassium Level 4.0 mmol/L Chloride Level 101 mmol/L Carbon Dioxide Level 30 mmol/L Anion Gap 9.0 mmol/L Blood Urea Nitrogen 19 mg/dl Creatinine 1.60 mg/dl Est Creatinine Clear Calc Drug Dose 37.1 ml/min Estimated GFR () 35.4 Estimated GFR (Non- 30.5 BUN/Creatinine Ratio 12.0 Random Glucose 80 mg/dl Calcium Level 8.2 mg/dl Assessment and Plan left renal pelvis stone s/p cysto, left ULL w/ stent Doing well post op. White count normal and afebrile. Stent will stay for at least 10 days- our office will call to arrange in-office removal. Retroperitoneal drain Continues to drain serosanguineous fluid Recommend leaving this in. We can possibly remove at time of stent pull in office Ok to discharge back to personal care today if ok with primary service- daughter is RN and can do daily dressing changes and change collection bag if needed. Spoke with daughter and updated her on above. Continued [facility] stay due to: multiple IV medications needed, other (pleurX catheter placement, drain placement, DVTs) Discharge planning: other (assisted living)
--- NOTE | 2016-08-25 09:28 | Progress Note ---
Subjective Date of Service: Aug 24, 2016. Subjective Pt evaluation today including: conversation w/ patient, physical exam, chart review Problem List Medical Problems: (1) Anemia Status: Acute (2) Contusion of rib on left side Status: Acute (3) Creatinine elevation Status: Acute (4) Visual hallucination Status: Acute Objective Vital Signs Date Time Temp Pulse Resp B/P Pulse Ox O2 Delivery O2 Flow Rate FiO2 08/24/16 00:01 Room Air 08/24/16 00:00 36.5 119 20 100/52 94 Room Air 08/23/16 20:30 63 104/54 08/23/16 16:15 96 Room Air 08/23/16 09:00 Room Air 08/23/16 08:33 67 08/23/16 07:55 36.6 58 20 124/71 96 Room Air Laboratory Results Last 24 Hours Test 08/24/16 06:18 08/24/16 06:28 Activated Partial Thromboplast Time 46.7 SECONDS Partial Thromboplastin Ratio 1.8 White Blood Count 7.36 K/uL Red Blood Count 3.58 M/uL Hemoglobin 10.0 g/dL Hematocrit 32.5 % Mean Corpuscular Volume 90.8 fL Mean Corpuscular Hemoglobin 27.9 pg Mean Corpuscular Hemoglobin Concent 30.8 g/dl Platelet Count 281 K/uL Mean Platelet Volume 9.5 fL Neutrophils (%) (Auto) 51.9 % Lymphocytes (%) (Auto) 33.4 % Monocytes (%) (Auto) 11.8 % Eosinophils (%) (Auto) 2.0 % Basophils (%) (Auto) 0.4 % Neutrophils # (Auto) 3.81 K/uL Lymphocytes # (Auto) 2.46 K/uL Monocytes # (Auto) 0.87 K/uL Eosinophils # (Auto) 0.15 K/uL Basophils # (Auto) 0.03 K/uL RDW Standard Deviation 59.1 fL RDW Coefficient of Variation 17.9 % Immature Granulocyte % (Auto) 0.5 % Immature Granulocyte # (Auto) 0.04 K/uL Sodium Level 142 mmol/L Potassium Level 4.1 mmol/L Chloride Level 104 mmol/L Carbon Dioxide Level 33 mmol/L Anion Gap 5.0 mmol/L Blood Urea Nitrogen 21 mg/dl Creatinine 1.50 mg/dl Est Creatinine Clear Calc Drug Dose 39.6 ml/min Estimated GFR () 38.3 Estimated GFR (Non- 33.0 BUN/Creatinine Ratio 14.2 Random Glucose 78 mg/dl Calcium Level 8.4 mg/dl Assessment and Plan 76yo female admitted from [facility] with complaints of increased confusion on 08/11/2016 Per family sepsis 2nd to UTI and retroperitoneal abscess of left retroperitoneal space - sepsis resolved. e. coli UTI - resolved. metabolic encephalopathy 2nd to sepsis and UTI - resolved. left pleural effusion - s/p pleurX catheter insertion, POD #6. Initial fluid studies concerning for exudative effusion. Cell counts and gram stain not concerning for infectious process. Fluid creatinine normal ruling out that the effusion was urine-based. Cytology negative. PleurX management per Dr. Zhu. Pulmonary symptoms (dyspnea, etc) resolved. Left sided renal stone - unchanged in position on CT. For cystoscopy and possible stent placement today. Hold heparin gtt 2 hours prior to cystoscopy. Echo from earlier this year showed mildly reduced LV systolic fn, EF 45 percent. Will get Cards consult for pre op eval. s/p removal of pleurex catheter today left sided perinephric and retroperitoneal fluid collection - 2nd to multidrug resistant e. coli. s/p I/D by Dr. Alexander, then ultimately placement of drain by radiology (Dr. Novak). Sens to keflex, rocephin, others. WBC count has normalized and no fever/chills. UTI, 1.8cm proximal left ureteral stone, retroperitoneal abscess repeated Ct today, Improving retroperitoneal abscess per CT scan, they recs to leave drain in place for now. Keflex for a total of 10 days for UTI (today is 9/10 days). protein calorie malnutrition - moderate - boost, MVI, etc. CKD stage 4 stable early hypothyroidism - TSH x 2 have been high. Started synthroid replacement at 25mcg daily. Repeat TSH 6 weeks. rib fractures on left - due to fall - healing. chronic anemia - H/H stable. a. fib - rates controlled. chronic systolic CHF - compensated. b/l LE DVTs - age indeterminate on doppler study. She had been on eliquis up until about 6-8 weeks ago at which point it was d/c due to concern of retroperitoneal hemorrhage from trauma. After release from [facility] she went to rehab. Family reports she had copious edema of the legs in rehab. Perhaps she developed the DVTs then. 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 Started heparin infusion. Watch carefully for ANY bleeding from the retroperitoneal space. Daily CBC. Continued [facility] stay due to: multiple IV medications needed, other (pleurX catheter placement, drain placement, DVTs) Discharge planning: other (assisted living)
--- NOTE | 2016-08-25 09:29 | CARDIOLOGY PROGRESS NOTE ---
DATE: 08/25/2016 SUBJECTIVE: Mrs. Aviles is resting comfortably in the bedside chair without complaints of chest pain or dyspnea. Tolerated her surgical procedure yesterday without difficulty. OBJECTIVE: VITAL SIGNS: Blood pressure 120/72 with an irregular pulse of 65. Respiratory rate is 18. The patient is afebrile at 36.6 degrees Celsius. Saturations 91% on room air. NECK: Supple with full carotid upstrokes. There are no carotid bruits. Jugular venous pressure is flat at 90 degrees. There is no thyromegaly. CARDIOVASCULAR: Reveals an irregular rhythm with distant heart sounds. No obvious murmurs. LUNGS: Clear without rales, rhonchi, or wheezes. ABDOMEN: Obese without bruits. EXTREMITIES: Reveal intact radial artery pulses bilaterally. 2+ pitting edema in the pretibial regions. Hyperpigmentation changes noted. LABORATORY DATA: CBC notes hemoglobin of 10.3, hematocrit 33.6, white count 8.9, and platelet count 254,000. Electrolytes note a sodium of 140, potassium 4.0, chloride 101, bicarb 30, BUN 19, creatinine 1.6, glucose 80. PTT is 56.1. IMPRESSION AND PLAN: 1. Permanent atrial fibrillation - the patient has excellent ventricular rate control. She is now back on intravenous heparin. Will discuss long-term anticoagulation when she has stabilized on outpatient. 2. Coronary artery disease - 100% posterior descending artery stenosis, July 2007. 3. Hypertension - controlled. 4. Hypercholesterolemia - continue statin. 5. Peripheral vascular disease - status post right lower extremity bypass in October 2010. 6. Cerebrovascular disease status post 100% left internal carotid artery stenosis, January 2011. 7. Diastolic dysfunction. 8. Chronic obstructive pulmonary disease. 9. Chronic renal failure. 10. Retroperitoneal abscess - continues with intravenous antibiotics and drain. Successful cystoscopy and placement of ureteral stent yesterday. [facility]
[2016-08-25] MEDS ORDERED: ULT/50 PO (11:07)
[2016-08-25] MEDS ORDERED: SERT1TAB92 PO (11:07)
[2016-08-25] MEDS ORDERED: ELQ25 PO (11:07)
--- NOTE | 2016-08-25 11:11 | Discharge Instructions ---
Discharge Instructions Date of Service Aug 25, 2016. Admission Reason for Admission: Altered Mental Status, Uti Discharge Discharge Diagnosis / Problem: E.Coli Urosepsis, Pleural effusion, Retroperitoneal abscess, Renal stones, Discharge Goals Goal(s): Learn about illness Activity Recommendations Activity Limitations: per Instructions/Follow-up section Lifting Limitations: until after follow-up appointment Exercise/Sports Limitations: until after follow-up appointment May Resume Sexual Activity: after follow-up appointment Driving or Machine Use: until after follow up appt . Instructions / Follow-Up Instructions / Follow-Up Urology in one week. PCP in one week Current Hospital Diet Patient's current hospital diet: Diabetes Type 2 Diet Discharge Diet Recommended Diet: Diabetes Type 2 Diet Procedures Procedures Performed: Cystoscopy, Left Retrograde Pyelography, Left Flexible Ureteroscopy, Laser Lithotripsy; Left Ureteral Stent Placement Pending Studies Studies pending at discharge: yes List of pending studies: BMP Laboratory Results Hemoglobin A1c Test 08/11/16 16:04 Range/Units Estimated Average Glucose 134 mg/dl Hemoglobin A1c 6.3 H 4.5-5.6 % Medical Emergencies . Who to Call and When: Medical Emergencies: If at any time you feel your situation is an emergency, please call 911 immediately. . Non-Emergent Contact Non-Emergency issues call your: Primary Care Provider Call Non-Emergent contact if: you have a fever . . "Provider Documentation" section prepared by Nick Finnegan. VTE Core Measure Inpt VTE Proph given/why not?: Other Anticoagulation
[2016-08-25] MEDS ORDERED: TRAMADOL HCL 50 MG TAB PO PRN (11:15)
--- NOTE | 2016-08-25 11:15 | Discharge Summary ---
Discharge Summary Date of Service Aug 25, 2016. Discharge Summary Admission Date: Aug 11, 2016 at 18:50 Discharge Date: Aug 25, 2016 Discharge Disposition: Personal care Principal Diagnosis: Left renal stone s/p stenting. E.coli urosepsis, DVT legs , CKD stage 4 Immunizations: Have You Had Influenza Vaccine: Yes Influenza Vaccine Date: Mar 02, 2013 History of Tetanus Vaccine?: Yes Tetanus Immunization Date: May 02, 2011 History of Pneumococcal: Yes Pneumococcal Date: May 02, 2011 History of Hepatitis B Vaccine: No Procedures: POD#1 cystoscopy left retrograde pyelography, left ureteroscopy with laser litho and left ureteral stent placement by Dr. Juan for 1.8 cm stone for hx of UTI and retroperitoneal abscess. s/p left sided thoracentesis Consultations: Urology Gen.Surgery Medication Reconciliation New Medications: Apixaban (Eliquis) 2.5 Mg Tab 2.5 MG PO BID for 30 Days, #60 TAB 8 Refills Sertraline HCl (Sertraline HCl) 100 Mg Tab 75 MG PO QAM for 30 Days, #60 TAB 4 Refills Continued Medications: Acetaminophen (Acetaminophen) 500 Mg Cap 500 MG PO BID PRN for Pain TAKE WITH TRAMADOL Aspirin Enteric Coated (Ecotrin Or Generic) 81 Mg Tab 81 MG PO DAILY, TAB Atorvastatin (Lipitor) 40 Mg Tab 40 MG PO DAILY, TAB Carvedilol (Coreg) 25 Mg Tab 25 MG PO BID, TAB Diphenoxylate/Atropine (Lomotil) Tab 1 TAB PO Q6 PRN for Diarrhea, TAB Docusate Sodium (Colace) 100 Mg Cap 1 CAP PO DAILY PRN for Constipation for 30 Days, #30 CAP Furosemide (Lasix) 20 Mg Tab 20 MG PO DAILY, TAB Lorazepam (Ativan) 1 Mg Tab 1 MG PO QID PRN, TAB Multiple Vitamin (Multivitamin) 1 Tab Tab 1 TAB PO DAILY, TAB Multiple Vitamins W/ Minerals (Vision Vitamins) 1 Tab Tab 1 TAB PO DAILY Ondasetron Odt (Zofran Odt) 4 Mg Tab 4 MG SL Q6H for Nausea, #6 TAB Polyethylene Glycol 3350 (Miralax) 1 Pow Pow 17 GM PO DAILY, GM Ranitidine Hcl (Zantac) 150 Mg Tab 150 MG PO DAILY, TAB Tramadol Hcl (Ultram) 50 Mg Tab 50 MG PO BID PRN for Pain, #60 TAB 0 Refills (This prescription has been renewed ) TAKE WITH TYLENOL Triazolam (Triazolam) 0.25 Mg Tab 0.25 MG PO HS Discontinued Medications: Sertraline (Zoloft) 100 Mg Tab 100 MG PO DAILY, TAB Discharge Exam Physical Exam: General Appearance: WD/WN, no apparent distress Eyes: normal inspection, PERRL ENT: normal ENT inspection Neck: supple, no JVD Respiratory/Chest: chest non-tender, lungs clear Cardiovascular: regular rate, rhythm, no edema, no gallop Abdomen / GI: normal bowel sounds Extremities: normal inspection Neurologic/Psychiatric: attending psychiatrist 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 tested, oriented x 3 Skin: normal color Hospital Course Pt is a 76 yo female who presents to the ER from [facility] with complaints of increased confusion that started today Per family, pt has been having visual hallucinations of dogs and other people in the room sporadically. Pt reports weakness but denies any fevers, chills, chest pain, sob, abd pain, N/V/D. Also per nursing staff, pt has had a fall from her weakness yesterday although there was no trauma or LOC. The patient has a history of UTIs, with her last infection this year in which she was treated for a fungal infection. Upon arrival in ER, pt noted to have leukocytosis and pos UA findings indicative of UTI. sepsis 2nd to UTI and retroperitoneal abscess of left retroperitoneal space - sepsis resolved. e. coli UTI - resolved. Completed course of antibiotics. metabolic encephalopathy 2nd to sepsis and UTI - resolved. left pleural effusion - s/p pleurX catheter insertion, POD #6. Initial fluid studies concerning for exudative effusion. Cell counts and gram stain not concerning for infectious process. Fluid creatinine normal ruling out that the effusion was urine-based. Cytology negative. PleurX management per Dr. Zhu. Pulmonary symptoms (dyspnea, etc) resolved. Left sided renal stone - unchanged in position on CT. For cystoscopy and possible stent placement today. Hold heparin gtt 2 hours prior to cystoscopy. Echo from earlier this year showed mildly reduced LV systolic fn, EF 45 percent. Will get Cards consult for pre op eval. s/p removal of pleurex catheter today left sided perinephric and retroperitoneal fluid collection - 2nd to multidrug resistant e. coli. s/p I/D by Dr. Alxeander, then ultimately placement of drain by radiology (Dr. Novak). Sens to keflex, rocephin, others. WBC count has normalized and no fever/chills. UTI, 1.8cm proximal left ureteral stone, retroperitoneal abscess repeated Ct today, Improving retroperitoneal abscess per CT scan, they recs to leave drain in place for now. Keflex for a total of 10 days for UTI (today is 9/10 days). protein calorie malnutrition - moderate - boost, MVI, etc. CKD stage 4 stable early hypothyroidism - TSH x 2 have been high. Started synthroid replacement at 25mcg daily. Repeat TSH 6 weeks. rib fractures on left - due to fall - healing. chronic anemia - H/H stable. a. fib - rates controlled. chronic systolic CHF - compensated. b/l LE DVTs - age indeterminate on doppler study. Eliquis 2.5mg bid restarted at discharge. Pt was on heparin gtt during inpt stay. Total Time Spent: Greater than 30 minutes This includes examination of the patient, discharge planning, medication reconciliation, and communication with other providers. Discharge Instructions Please refer to the electronic Patient Visit Report (Discharge Instructions) for additional information. Follow-Up Urology in one week PCP in one week
[2016-08-25 14:25] VITALS: BP 120/72; PULSE 67; TEMP 36.6; O2SAT 91
[2016-08-25] MEDS: ACETAMINOPHEN 325 MG TAB PO PRN (16:08)
[2016-08-25] MEDS ORDERED: APIXABAN 2.5 MG TAB PO SCH (20:00)
[2016-08-26] MEDS ORDERED: SERTRALINE HCL 50 MG TAB PO SCH (08:00)
== END 2016-08-25 17:00 | disposition home or self-care (01) | DRG 853 ==
LOC: ENRESERVTM → ENRESERVDT → EDBD 15:18 → C.EDC 15:20 → C.4E 18:50
PROVIDERS: ADMIT Hospitalist; ATTEND Hospitalist
PROC: 0W9B30Z Drainage of Left Pleural Cavity with Drainage Device, Percutaneous Approach (ICD-10-PCS; principal; 2016-08-16)
PROC: 0J9B0ZZ Drainage of Perineum Subcutaneous Tissue and Fascia, Open Approach (ICD-10-PCS; 2016-08-17)
PROC: 0BPQX0Z Removal of Drainage Device from Pleura, External Approach (ICD-10-PCS; 2016-08-23)
PROC: 0T778DZ Dilation of Left Ureter with Intraluminal Device, Via Natural or Artificial Opening Endoscopic (ICD-10-PCS; 2016-08-24 11:15)
PROC: BT1F1ZZ Fluoroscopy of Left Kidney, Ureter and Bladder using Low Osmolar Contrast (ICD-10-PCS; 2016-08-24 11:15)
PROC: 0TC78ZZ Extirpation of Matter from Left Ureter, Via Natural or Artificial Opening Endoscopic (ICD-10-PCS; 2016-08-24 11:15)
DX: A41.9 Sepsis, unspecified organism (principal); G93.41 Metabolic encephalopathy; K65.1 Peritoneal abscess; N39.0 Urinary tract infection, site not specified; I42.9 Cardiomyopathy, unspecified; I50.22 Chronic systolic (congestive) heart failure; I13.0 Hypertensive heart and chronic kidney disease with heart failure and stage 1 through stage 4 chronic kidney disease, or unspecified chronic kidney disease; I82.403 Acute embolism and thrombosis of unspecified deep veins of lower extremity, bilateral; J90 Pleural effusion, not elsewhere classified; N18.4 Chronic kidney disease, stage 4 (severe); E44.0 Moderate protein-calorie malnutrition; S22.42XA Multiple fractures of ribs, left side, initial encounter for closed fracture; N20.1 Calculus of ureter; Z68.35 Body mass index [BMI] 35.0-35.9, adult; I48.2 Chronic atrial fibrillation; E78.5 Hyperlipidemia, unspecified; E66.9 Obesity, unspecified; Z86.711 Personal history of pulmonary embolism; Z86.73 Personal history of transient ischemic attack (TIA), and cerebral infarction without residual deficits; Z96.641 Presence of right artificial hip joint; Z96.653 Presence of artificial knee joint, bilateral; Z88.5 Allergy status to narcotic agent; Z88.8 Allergy status to other drugs, medicaments and biological substances; Z91.048 Other nonmedicinal substance allergy status; Z79.82 Long term (current) use of aspirin; Z79.899 Other long term (current) drug therapy; Z66 Do not resuscitate; B96.20 Unspecified Escherichia coli [E. coli] as the cause of diseases classified elsewhere; E11.22 Type 2 diabetes mellitus with diabetic chronic kidney disease; M19.90 Unspecified osteoarthritis, unspecified site; K21.9 Gastro-esophageal reflux disease without esophagitis; E78.00 Pure hypercholesterolemia, unspecified; F32.9 Major depressive disorder, single episode, unspecified; G47.00 Insomnia, unspecified; K59.00 Constipation, unspecified; E03.9 Hypothyroidism, unspecified; E11.51 Type 2 diabetes mellitus with diabetic peripheral angiopathy without gangrene; W19.XXXA Unspecified fall, initial encounter; I25.10 Atherosclerotic heart disease of native coronary artery without angina pectoris; J44.9 Chronic obstructive pulmonary disease, unspecified

== ENCOUNTER → 2016-09-08 | Outpatient (CLI) | payer OTHER ==
[~2016-09-08] MED LIST changes: +DIPH-416 PO; +ELQ25 PO; +ONDA4TAB10 SL; +POLY335019 PO; +SERT1TAB92 PO; -THM100 PO
--- NOTE | 2016-09-08 11:32 | DIAGNOSTIC IMAGING REPORT ---
TWO VIEW CHEST CLINICAL HISTORY: Chest tube. FINDINGS: PA and lateral chest radiographs are compared to study dated 08/23/2016 and correlated with chest CT dated 08/15/2016. The PA view is degraded by patient rotation. The lateral view is degraded by the patient's left arm which could not be elevated. The heart is mildly enlarged and there is atherosclerotic calcification of the thoracic aorta. The pulmonary vasculature is noncongested. Emphysema and chronic interstitial thickening are similar to previous. There is a small left pleural effusion with left basilar opacities. A well marginated ovoid density projecting over the left mid chest likely represents fluid loculated within a fissure. Scarring is seen in the left lower lung. There is no pneumothorax. The skeletal structures are osteopenic. Degenerative change is seen throughout the thoracic spine. IMPRESSION: 1. Mild cardiomegaly and emphysema. 2. There is a small left pleural effusion. 3. An ovoid and well marginated opacity projecting over the left midlung likely represents loculated fluid within the major fissure. This has decreased in size from 08/23/2016. Continued radiographic follow-up to resolution is recommended. Electronically signed by: Gee Hamilton M.D. 09/08/2016 11:29 AM Dictated Date/Time: 09/08/2016 11:27 AM
--- NOTE | 2016-09-08 11:43 | DIAGNOSTIC IMAGING REPORT ---
KUB HISTORY: CALCULUS OF URETER COMPARISON: Abdomen and pelvis CT 08/22/2016. FINDINGS: The bowel gas pattern is unremarkable. There are no dilated loops of small bowel to suggest an obstruction. There is a left ureteral stent in good position. No renal calculi identified. There is a large stone versus a column of stones within the left ureteropelvic junction measuring 3 cm in length. There is a percutaneous drainage catheter within the left flank. Right total hip arthroplasty. Prior cholecystectomy. No pneumoperitoneum or pneumatosis. IMPRESSION: No change in the 3 cm stone versus a column of stones within the left ureteropelvic junction. A left ureteral stent is in good position. Electronically signed by: Markus Escamilla M.D. 09/08/2016 11:41 AM Dictated Date/Time: 09/08/2016 11:39 AM
== END | disposition home or self-care (01) ==
LOC: C.RAD 11:01
PROVIDERS: ATTEND Urology
DX: J90 Pleural effusion, not elsewhere classified (principal); I51.7 Cardiomegaly; J43.9 Emphysema, unspecified; N20.1 Calculus of ureter

== ENCOUNTER → 2016-10-04 | Outpatient (CLI) | payer OTHER ==
--- NOTE | 2016-10-04 14:05 | DIAGNOSTIC IMAGING REPORT ---
CT SCAN OF THE ABDOMEN AND PELVIS WITHOUT CONTRAST CLINICAL HISTORY: Ureteral calculus COMPARISON STUDY: 08/22/2016 TECHNIQUE: CT scan of the abdomen and pelvis was performed from the lung bases to the proximal femurs. Images are reviewed in the axial, sagittal, and coronal planes. IV contrast was not administered for this examination. CT DOSE: 1238.44 mGy.cm FINDINGS: Lower chest: There are left basilar atelectatic changes. There is a small left pleural effusion. Liver: The unenhanced liver is normal in size, contour, and attenuation. There is no intrahepatic biliary ductal dilatation. Gallbladder: Surgically absent Spleen: Normal in size and attenuation. Pancreas: Unremarkable. Adrenal glands: Unremarkable. Kidneys: The left-sided perinephric drain has been removed. There is persistent infiltration of the left perinephric soft tissues, slightly improved when compared the prior study. There is a left-sided nephroureteral stent present. There is no significant hydronephrosis. No ureteral or bladder calculi are visualized. There is a punctate nonobstructing right renal calculus. There is a punctate nonobstructing left renal calculi.. Bowel: There is mild fecal retention. There are no transition zones indicate bowel obstruction. There is diverticulosis. There are no acute peridiverticular inflammatory changes. Peritoneum: There is no free air. There is no ascites. There are postsurgical changes of a ventral hernia repair. Vasculature: There are moderately extensive atheromatous calcifications. Adenopathy: None. Pelvic viscera: The uterus appears surgically absent. There is a 33 mm cystic right adnexal lesion, likely ovarian Skeletal structures: There are postsurgical changes of a total right hip arthroplasty. IMPRESSION: 1. Bilateral nephrolithiasis 2. Small left pleural effusion with left basilar atelectasis. Interval removal of the left-sided chest tube. 3. Decreasing left perinephric and flank fluid collection. Interval removal of the drainage catheter 4. The previously identified left UPJ calculus is no longer visualized. There have been placement of a double-pigtail left-sided nephroureteral stent 5. No evidence of bowel obstruction. No evidence of free air 6. No acute inflammatory changes 7. Relatively stable 33 mm cystic right adnexal lesion, likely ovarian Electronically signed by: Chadwick Morris M.D. 10/04/2016 2:04 PM Dictated Date/Time: 10/04/2016 1:57 PM
== END | disposition home or self-care (01) ==
LOC: C.CTS 13:15
PROVIDERS: ATTEND Urology
DX: N20.1 Calculus of ureter (principal); J90 Pleural effusion, not elsewhere classified; J98.11 Atelectasis; R19.09 Other intra-abdominal and pelvic swelling, mass and lump

== ENCOUNTER → 2016-10-25 | Outpatient (CLI) | payer OTHER | END | disposition home or self-care (01) | LOC: C.LABSPEC 10:29 | PROVIDERS: ATTEND Urology | DX: K68.19 Other retroperitoneal abscess (principal) ==

== ENCOUNTER → 2017-03-29 | Outpatient (CLI) | payer OTHER ==
--- NOTE | 2017-03-29 16:16 | DIAGNOSTIC IMAGING REPORT ---
L WRIST MIN 3 VIEWS ROUTINE, R WRIST MIN 3 VIEWS ROUTINE CLINICAL HISTORY: BILATERAL WRIST PAIN COMPARISON STUDY: None. FINDINGS: Vascular calcifications are noted. The bones are osteopenic. No acute fracture or dislocation within the right or left wrist. Mild dorsal soft tissue swelling within the bilateral wrists. No erosions identified. Old, healed left ulnar styloid fracture. Mild osteoarthritis within the right radiocarpal and bilateral STT joints. IMPRESSION: 1. No acute fracture or dislocation within the right or left wrist. 2. Mild dorsal soft tissue swelling within the bilateral wrists. 3. Mild osteoarthritis within the bilateral wrists. Electronically signed by: Markus Escamilla M.D. 03/29/2017 4:15 PM Dictated Date/Time: 03/29/2017 4:13 PM
== END | disposition home or self-care (01) ==
LOC: C.RDSM 08:31
PROVIDERS: ATTEND Physician Assistant
DX: R52 Pain, unspecified (principal)

== ENCOUNTER → 2017-06-04 | Outpatient (CLI) | payer OTHER ==
[~2017-06-04] MED LIST changes: -ACET500C6 PO; +APIX1TAB PO; +ASPCH81X PO; -ASPI81TA21 PO; +ATOR-22 PO; +CARV25TA PO; -CARV25TA2 PO; -DIPH-416 PO; -DOCU-94 PO; +DOCU100C31 PO; -ELQ25 PO; -LPT/40 PO; +MULT-190 PO; +MULT-506 PO; -MULT-55 PO; -MULTTAB58 PO; -ONDA4TAB10 SL; +ONDA4TAB46 PO; +RANI150T3 PO; -SERT1TAB92 PO; +TRAM-10 PO; -TRIA0.2580 PO; -ULT/50 PO; +ZLF50 PO; -ZNT/150 PO
[2017-06-04 18:10] LABS: BLOOD UREA NITROGEN 57 mg/dl (7-18); CALCIUM 8.6 mg/dl (8.5-10.1); CARBON DIOXIDE 24 mmol/L (21-32); GLUCOSE 119 mg/dl (70-99); POTASSIUM 4.9 mmol/L (3.5-5.1); SODIUM 137 mmol/L (136-145)
== END | disposition home or self-care (01) ==
LOC: C.LAB 17:20
PROVIDERS: ATTEND Physician Assistant
DX: I10 Essential (primary) hypertension (principal)

== ENCOUNTER → 2017-06-12 | Day surgery (SDC) | payer OTHER ==
[2017-05-30 11:32] VITALS: Ht 172.7 cm; Wt 120.5 kg
[~2017-06-12] VITALS: Ht 172.7 cm; Wt 120.5 kg
[~2017-06-12] MED LIST changes: +ATROPINE SULFATE 0.1 MG/ML 5ML SYR IV PRN; +BUPIVACAINE 0.5 % 5 MG/1 ML PF 10ML VIAL ONE; +CEFAZOLIN 3000MG IV PUSH 15 ML IV SCH; +EpHEDrine SULFATE INJ 50 MG/ML AMP IV PRN; +EpHEDrine SULFATE INJ 50 MG/ML AMP ONE; +FENTANYL CITRATE INJ 50 MCG/1 ML 2 ML VIAL IV PRN; +FENTANYL CITRATE INJ 50 MCG/1 ML 2 ML VIAL ONE; +LACTATED RINGER'S 1000ML 1,000 ML IV SCH; +LIDOCAINE HCL 2% 2 ML VIAL (20MG/ML) ONE; +LIDOCAINE HCL 2% LOCAL 20 ML VIAL ONE; +MIDAZOLAM HCL 1 MG/ML 2ML VIAL ONE; +ONDANSETRON INJ 2 MG/ML 2 ML VIAL IV PRN; +ONDANSETRON INJ 2 MG/ML 2 ML VIAL ONE; +PHENYLEPHRINE HCL INJ 10 MG/ML VIAL ONE; +PROPOFOL IV EMULSION 10 MG/ML 20 ML VIAL IV ONE; +SODIUM CHLORIDE 0.9% 1000ML 1,000 ML IV SCH
--- NOTE | 2017-06-12 06:31 | History & Physical Bridge Note ---
H&P Re-Evaluation Bridge Note: I have examined the patient, reviewed the History & Physical and in the interval since the performance of the History & Physical I have noted the following changes of clinical significance: consent obtained.No changes noted
--- NOTE | 2017-06-12 06:33 | Discharge Instructions ---
Discharge Instructions Date of Service Jun 12, 2017. Visit Reason for Visit: Left Wrist Carpal Tunnel Syndrome, Left Thumb & Index trigger digits Discharge Discharge Diagnosis / Problem: same Discharge Goals Goal(s): Decrease discomfort, Improve function, Improve disease control Medications Stopped Medications Name(s): na Restart Stopped Medication(s): resume and use all new scripts and old scripts as directed on labels Activity Recommendations Activity Limitations: as noted below Lifting Limitations: until after follow-up appointment May Resume Sexual Activity: after follow-up appointment Shower/Bathe: keep incision dry Driving or Machine Use: Anesthesia . Post Anesthesia Instructions: If you have had General Anesthesia or IV Sedation: * Do not drive today. * Resume driving when surgeon permits. * Do not make important decisions or sign legal documents today. * Call surgeon for: 1. Temperature elevations greater than 101 degrees F. 2. Uncontrollable pain. 3. Excessive bleeding. 4. Persistent nausea and vomiting. 5. Medication intolerance (nausea, vomiting or rash). * For nausea and vomiting use only clear liquids such as: tea, soda, bouillon until nausea subsides, then gradually increase diet as tolerated. * If you have any concerns or questions, call your surgeon's office. If physician is unavailable and it is an emergency, call 911 or go to the nearest emergency room. . Instructions / Follow-Up Instructions / Follow-Up The following are instructions to follow after minor hand surgery. ACTIVITY RECOMMENDATIONS: * Minimize activity until your first visit after surgery. * No excessive walking, jogging, sports or laboring. * Return to activity is individualized. Most patients are able to return to everyday activities within 2 weeks. * Return to sports or intensive labor usually occurs at 1-2 months. * DRIVING: Driving may be resumed when you feel you have adequate pain control and use of the hand. * BATHING: You may shower or sponge-bathe immediately after surgery. The dressing will need to be covered with a plastic bag or plastic wrap until the dressing is changed on the fourth or fifth day after surgery. Once the dressing has been changed on the fourth or fifth day after surgery, you may shower and get the incision wet. * Wash with regular soap and water. * Do not bathe (submerge the incision), soak, swim or use a hot tub until the incision is completely healed over with normal skin and the doctor has given the OK to proceed. * There is no need to apply any ointments, powders or salves to your incision. * Do not apply alcohol or hydrogen peroxide directly to the incision. Diluted peroxide (50:50 mixture with sterile saline) may be used to clean dried blood from around the incision area. WORK/SCHOOL: * You may return to sedentary work or school when you are feeling comfortable. This is usually 3-7 days after surgery. * Expect increased discomfort with increased activity. Continue to elevate and ice the hand as much as possible. DIET: * Resume previous diet. MEDICATIONS: * You will have a prescription for pain medication and an anti-inflammatory medication after surgery. Use the pain pills for severe pain and the anti-inflammatory for less severe pain. * Once the pain pills have run out, try to use the anti-inflammatory. If this is not effective then contact the office for assistance. * The pain medication may cause nausea, constipation and sleepiness. You should see how they affect you before driving or similar activity. * The anti-inflammatory may cause stomach upset and bleeding. If this occurs, let your doctor know immediately . * Some patients may need blood clot prevention. This can be done with either a pill or a simple shot. Your doctor will advise you on when to begin these medications and how to take them. * Do not take aspirin or other anti-inflammatory products (i.e. Advil or Aleve ) if taking blood thinner medication. * Take a stool softener like Colace or a stimulant like Senokot to prevent constipation. SPECIAL CARE INSTRUCTIONS: ICE: * Do not apply ice directly to the skin. * Use a thin dressing or stockinet between the skin and ice bag. The dressing in place after surgery will suffice. * Apply ice for 20-30 minutes and repeat every 2-4 hours. This is especially important for the first 3-7 days after surgery. * Once the pain improves, use ice as needed. ELEVATION: * Keep your hand elevated at or above the level of your heart as much as possible. * Expect some increased discomfort and swelling if you allow your hand to hang down for any length of time. DRESSING: * Your dressing will be changed 4-5 days after surgery by the physical therapist or physician's licensed investment sales assistant. Leave your dressing intact until this time. * You may then change your dressing daily with clean dry gauze or Band-aids and a soft wrap or stockinet. * Always wash your hands prior to touching the incision area. * Once the stitches are removed, you may leave the wound open to air or cover with a thin bandage. * There is no need to apply any ointments, powders or salves to your incision. * Expect some bloody drainage for the first few days after surgery. * Leave the tape strips in place (if present) for 5-7 days. * The initial dressing after surgery may become soaked with blood or fluid which is normal. You may reinforce your dressing with clean, dry gauze as needed. BRACE: * Bracing is generally not needed after routine hand surgery. THERAPY: * Physical therapy may be prescribed after your surgery. * For carpal tunnel and trigger digit surgery you may begin moving your fingers and wrist immediately after surgery as tolerated. * Be careful to not overuse. * Once the sutures are removed, further range of motion exercises can be performed. * Hand incisions may be very sensitive for a few months after surgery so avoid excessive pressure on the incision. If necessary, use a padded weightlifters' glove. * You may massage the incision with skin cream to make it less sensitive and reduce scarring. * Hand strength usually returns with normal use. * If needed, squeezing a soft sponge or Play-dough may help. * Your doctor will recommend physical therapy if necessary. PROBLEMS/QUESTIONS: * If you have any problems such as severe pain, numbness, tingling or high fevers or if you have any questions, please contact the office at [phone]. * It is not uncommon to have some numbness and tingling after the surgery especially if you have had a nerve block done. This should gradually improve over the first 1- 2 days. If this persists longer or worsens then contact the office. FOLLOW UP VISIT: * If not already scheduled, please call the office at to schedule follow-up appointments for approximately 10 days, 6 weeks and 3 months after surgery. Diet Recommendations Recommended Home Diet: resume previous diet Procedures Procedures Performed: see op note Pending Studies Studies pending at discharge: no Medical Emergencies . Who to Call and When: Medical Emergencies: If at any time you feel your situation is an emergency, please call 911 immediately. . Non-Emergent Contact Non-Emergency issues call your: Specialist Call Non-Emergent contact if: temperature is above 101.5, wound has increased drainage, wound has increased redness, wound has increased pain . . "Provider Documentation" section prepared by Antonino Elliott. .
--- NOTE | 2017-06-12 07:46 | [facility] Post Operative Brief Note ---
Immediate Operative Summary Operative Date Jun 12, 2017. Pre-Operative Diagnosis Left Wrist Carpal Tunnel Syndrome, Left Thumb and Index Finger Trigger Digits Post-Operative Diagnosis Same Procedure(s) Performed Left Wrist Carpal Tunnel Release, Left Thumb, Left Index Trigger Finger Releases Surgeon Dr. Elliott Supervisor Pole Yard Surgeon(s) Mateusz Weldon PA-C Estimated Blood Loss Trace Findings Consistent with Post-Op Diagnosis Fluids (cc crystalloids) 550cc Specimens None Drains None Anesthesia Type Local Complication(s) none Disposition Accompanied Pt To Recover: no Disposition:
[2017-06-12 07:50] VITALS: TEMP 37.2
[2017-06-12 08:24] VITALS: BP 97/47; PULSE 63; O2SAT 99
--- NOTE | 2017-06-12 08:29 | OPERATIVE REPORT ---
DATE OF OPERATION: 06/12/2017 SURGEON: Antonino Elliott MD. MANAGER BOOKS: Reuben Weldon PA-C. No resident or fellow available. PREOPERATIVE DIAGNOSES: 1. Intractable left carpal tunnel syndrome, severe. 2. 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 POSTOPERATIVE DIAGNOSES: Same. OPERATION PERFORMED: 1. Left trigger thumb release. 2. Left index trigger release. 3. Left carpal tunnel release (all with separate incisions). PERIOPERATIVE SITUATION: Medically cleared female with intractable findings consistent with the above diagnosis. At this point in time she has limited significant hand function, does not want to live like this and is requesting surgery. It was identified that this may not eliminate all of her symptoms due to the severity of her illness. DESCRIPTION OF THE PROCEDURE: The patient properly identified, site verified, consent verified. Antibiotics, Ancef confirmed as being given. The left upper extremity was then timed out and identified as the appropriate site and injected with 0.5% Marcaine plain and 2% plain lidocaine into the carpal canal and then around the skin and then over the trigger thumb and trigger index finger. The wound was then prepped and draped in routine fashion. Tourniquet inflated to 250 mmHg. After exsanguination of limb with a rubber Esmarch bandage for a total of roughly 26 minutes. The trigger thumb was addressed first. A light incision was made, blunt dissection down to the extensor mechanism. There was lot of adherence of the tissue to the flexor mechanism was tediously dissected and the nerves were protected. The meron was then identified proximally and distally and then released under direct vision. The tendon had some fraying to it. The thumb then had full range of motion. The wound was then irrigated and closed with horizontal mattress 4-0 nylon suture. The index finger was then addressed next and the incision made over the volar surface of the MP joint. Similar findings were noted in the sense of the adhesion of the tissue down to the flexor mechanism. This was all tediously dissected off and nerves protected. A1 meron identified and released from proximal to distal. This tendon had some minor fraying but not as severe as the thumb. Appeared to be the FDS. The wound was then irrigated and closed with horizontal 4-0 nylon mattress sutures. The carpal tunnel was then addressed and a curvilinear incision was made based on the fourth ray. Full thickness flaps raised. Blunt dissection down to the palmar fascia. This was then incised under direct vision. The antebrachial fascia then identified and incised proximally and then dissected distally down to the superficial palmar arch releasing the pressure on the median nerve. The nerve became quite hyperemic. The floor of the carpal canal had no masses. The FPL was identified. The motor takeoff branch was identified but not explored. The antebrachial fascia was released approximately 1 cm proximal to the hook of the hamate. The wound was then irrigated and closed with horizontal 3-0 nylon mattress sutures. The wound was then dressed with Dermabond, Xeroform, 4 x 4 gauze and a light splint applied with 3 inch fiberglass splint with 2-inch Eldon bandage and 1 inch Coban. The patient transferred to holding area in satisfactory condition having tolerated the procedure well. ESTIMATED BLOOD LOSS: Trace. CRYSTALLOID: 550 mL. PATHOLOGY: No pathology pending. I attest to the content of the Intraoperative Record and any orders documented therein. Any exceptions are noted below. JES[facility]
--- NOTE | 2017-06-12 08:30 | Anesthesia Progress Nt - [facility] ---
Anesthesia Post Op Note Date & Time Jun 12, 2017 at 08:30 Vital Signs Pain Intensity: 0 Vital Signs Past 12 Hours Date Time Temp Pulse Resp B/P (MAP) Pulse Ox O2 Delivery O2 Flow Rate FiO2 06/12/17 08:24 63 18 97/47 (64) 99 Room Air 06/12/17 07:50 37.2 77 16 113/69 (84) 98 Room Air 06/12/17 06:37 36.5 71 18 130/79 (96) 96 Room Air Notes Mental Status: alert / awake / arousable, participated in evaluation Pt Amnestic to Procedure: Yes Nausea / Vomiting: adequately controlled Pain: adequately controlled Airway Patency, RR, SpO2: stable & adequate BP & HR: stable & adequate Hydration State: stable & adequate Anesthetic Complications: no major complications apparent
--- NOTE | 2017-06-12 18:03 | [facility] Operative Report ---
Operative Report Operative Date Jun 12, 2017. Pre-Operative Diagnosis Left Wrist Carpal Tunnel Syndrome, Left Thumb and Index Finger Trigger Digits Post-Operative Diagnosis left wrist and hand Same Procedure(s) Performed Left Wrist Carpal Tunnel Release, Left Thumb, Left Index Trigger Finger Releases Surgeon Dr. Elliott Vocational Nurse Lvn Surgeon(s) Mateusz Weldon PA-C Estimated Blood Loss Trace Findings trigger digits thumb and index finger, median nerve entrapment Fluids (cc crystalloids) 550cc Specimens None Drains none Complication(s) None Disposition phase 2 recovery Indications This 76-year-old white female presented the office of complaints of left hand numbness and tingling, as well as painful triggering of the thumb and index finger. She had tried conservative care measures without success. She elected to proceed with surgical intervention after being educated about potential risks and outcomes. Preoperative imaging an EMG were obtained. Description of Procedure Patient was taken to the operating room where she was given local anesthetic and sedation. She was prepped and draped in usual sterile fashion. Please see Dr. Elliott's operative report for specifics of the procedure. I was present for the entire case from initial patient positioning through final wound closure. Assistance was provided in tissue traction, hemostasis, final wound closure, and postprocedure splinting. Patient was taken to phase 2 recovery in satisfactory condition. I attest to the content of the Intraoperative Record and any orders documented therein. Any exceptions are noted below.
== END | disposition home or self-care (01) ==
LOC: X.SURG 06:14
PROVIDERS: ATTEND Physical Medicine & Rehabilitation Sports Medicine
DX: G56.02 Carpal tunnel syndrome, left upper limb (principal); M65.312 Trigger thumb, left thumb; M65.322 Trigger finger, left index finger; Z79.82 Long term (current) use of aspirin; E11.22 Type 2 diabetes mellitus with diabetic chronic kidney disease; N18.9 Chronic kidney disease, unspecified; F41.9 Anxiety disorder, unspecified; Z79.899 Other long term (current) drug therapy; Z90.49 Acquired absence of other specified parts of digestive tract; Z96.653 Presence of artificial knee joint, bilateral; Z86.711 Personal history of pulmonary embolism; Z86.73 Personal history of transient ischemic attack (TIA), and cerebral infarction without residual deficits

== ENCOUNTER → 2017-09-07 | Outpatient (CLI) | payer OTHER ==
[~2017-09-07] MED LIST changes: -ATROPINE SULFATE 0.1 MG/ML 5ML SYR IV PRN; -BUPIVACAINE 0.5 % 5 MG/1 ML PF 10ML VIAL ONE; -CEFAZOLIN 3000MG IV PUSH 15 ML IV SCH; -EpHEDrine SULFATE INJ 50 MG/ML AMP IV PRN; -EpHEDrine SULFATE INJ 50 MG/ML AMP ONE; -FENTANYL CITRATE INJ 50 MCG/1 ML 2 ML VIAL IV PRN; -FENTANYL CITRATE INJ 50 MCG/1 ML 2 ML VIAL ONE; -LACTATED RINGER'S 1000ML 1,000 ML IV SCH; -LIDOCAINE HCL 2% 2 ML VIAL (20MG/ML) ONE; -LIDOCAINE HCL 2% LOCAL 20 ML VIAL ONE; -MIDAZOLAM HCL 1 MG/ML 2ML VIAL ONE; -ONDANSETRON INJ 2 MG/ML 2 ML VIAL IV PRN; -ONDANSETRON INJ 2 MG/ML 2 ML VIAL ONE; -PHENYLEPHRINE HCL INJ 10 MG/ML VIAL ONE; -PROPOFOL IV EMULSION 10 MG/ML 20 ML VIAL IV ONE; -SODIUM CHLORIDE 0.9% 1000ML 1,000 ML IV SCH
[2017-09-07 12:52] LABS: BLOOD UREA NITROGEN 50 mg/dl (7-18); CALCIUM 8.7 mg/dl (8.5-10.1); CARBON DIOXIDE 27 mmol/L (21-32); CREATININE 2.31 mg/dl (0.60-1.20); GLUCOSE 138 mg/dl (70-99); POTASSIUM 4.4 mmol/L (3.5-5.1); SODIUM 140 mmol/L (136-145)
--- NOTE | 2017-09-28 11:28 | CODING QUERY NO DIAGNOSIS ---
TREATMENT RENDERED WITHOUT A DIAGNOSIS To promote full compliance with coding requirements relating to patient care, physician participation is requested in all cases of digital solutions architect uncertainty. Please assist us with providing a diagnosis/symptom for the test(s) below: A diagnosis/symptom was not documented on your Order. A valid diagnosis/symptom is required to bill all insurances. Please remember that we are unable to code a diagnosis of rule out, probable, possible, questionable, or suspected. Tests that require a diagnosis: DOS: 09/07/17 * PARTIAL RENAL PROFILE DIAGNOSIS: Provider Signature: Date: Thank you Hayley Huffman rumr: turn off the lights Information Management Once completed, please kindly fax back to [phone] For questions please call [phone]
== END | disposition home or self-care (01) ==
LOC: C.LABBFT 09:38
PROVIDERS: ATTEND Physician Assistant
DX: E11.9 Type 2 diabetes mellitus without complications (principal); I48.2 Chronic atrial fibrillation

== ENCOUNTER → 2017-12-19 | Outpatient (CLI) | payer OTHER ==
[2017-12-19 09:55] LABS: BASO % 0.4 %; BASO ABS # 0.03 K/uL (0-0.2); EOS % 2.2 %; EOS ABS # 0.18 K/uL (0-0.5); HEMOGLOBIN 12.4 g/dL (12.0-16.0); IG# 0.02 K/uL (0.00-0.02); LYMPH % 22.9 %; LYMPH ABS # 1.85 K/uL (1.2-3.4); MEAN CELL VOLUME 95.8 fL (80-100); MEAN CORPUSCULAR HEMOGLOBIN 30.5 pg (25-34); MEAN CORPUSCULAR HGB CONC 31.8 g/dl (32-36); MEAN PLATELET VOLUME 10.8 fL (7.4-10.4); MONO % 10.4 %; MONO ABS # 0.84 K/uL (0.11-0.59); NEUT % 63.9 %; NEUT ABS # 5.15 K/uL (1.4-6.5); PLATELET COUNT 210 K/uL (130-400); RED CELL DISTRIBUTION WIDTH CV 14.3 % (11.5-14.5); RED CELL DISTRIBUTION WIDTH SD 50.4 fL (36.4-46.3); WHITE BLOOD COUNT 8.07 K/uL (4.8-10.8)
[2017-12-19 10:05] LABS: BLOOD UREA NITROGEN 57 mg/dl (7-18); CALCIUM 8.7 mg/dl (8.5-10.1); CARBON DIOXIDE 25 mmol/L (21-32); CREATININE 2.17 mg/dl (0.60-1.20); GLUCOSE 106 mg/dl (70-99); POTASSIUM 4.9 mmol/L (3.5-5.1); SODIUM 141 mmol/L (136-145)
== END | disposition home or self-care (01) ==
LOC: C.LABSPEC 08:59
PROVIDERS: ATTEND Nurse Practitioner
DX: I50.9 Heart failure, unspecified (principal)

== ENCOUNTER → 2018-01-10 | Outpatient (CLI) | payer OTHER ==
[2018-01-10 10:05] LABS: BLOOD UREA NITROGEN 55 mg/dl (7-18); CALCIUM 8.6 mg/dl (8.5-10.1); CARBON DIOXIDE 23 mmol/L (21-32); CREATININE 2.23 mg/dl (0.60-1.20); GLUCOSE 85 mg/dl (70-99); POTASSIUM 4.9 mmol/L (3.5-5.1); SODIUM 139 mmol/L (136-145)
== END | disposition home or self-care (01) ==
LOC: C.LABSPEC 08:51
PROVIDERS: ATTEND Internal Medicine Cardiovascular Disease
DX: I10 Essential (primary) hypertension (principal)

== ENCOUNTER 2019-01-09 12:40 | Inpatient (IN) ==
--- NOTE | 2019-01-09 13:36 | XRay Report ---
SINGLE VIEW CHEST CLINICAL HISTORY: Atypical chest pain. FINDINGS: An AP, portable, upright chest radiograph is compared to study dated 08/17/2016 and correlat ed with chest CT dated 08/15/2016. The examination is degraded by portable technique and patient rotat ion. The heart is enlarged and there is atherosclerotic calcification of the thoracic aorta. The pulm onary vasculature is noncongested. Linear airspace opacities are present in the mid lung bilaterally. No large pleural effusion or pneumothorax is seen. The skeletal structures are osteopenic. Advanced degenerative changes noted in the shoulders, and there is evidence of chronic bilateral rotator cuff tear. The bony thorax is grossly intact. IMPRESSION: 1. Cardiomegaly without radiographic evidence of congestive failure. 2. Linear opacities are seen in the mid lung bilaterally. This likely represents scarring/atelectasis . Correlate clinically for evidence of a superimposed infectious/inflammatory pneumonitis. Electronically signed by: Gee Hamilton M.D. 01/09/2019 1:34 PM
[2019-01-09 13:47] LABS: Base Excess VBG -6.5 mEq/L; HCO3 VBG 20 mmol/L; Oxygen Saturation VBG < 60.0 %; PCO2 VBG 41 mmHg (38-50); PO2 VBG 24 mmHg
[2019-01-09 13:48] LABS: Basophils # (auto) 0.03 K/uL (0-0.2); Basophils % (auto) 0.5 %; Eosinophils # (auto) 0.18 K/uL (0-0.5); Eosinophils % (auto) 3.2 %; Hematocrit (blood only) 36.3 % (37-47); Hemoglobin 11.7 g/dL (12.0-16.0); Immature Granulocytes # (auto) 0.01 K/uL (0.00-0.02); Immature Granulocytes % (auto) 0.2 %; Lymphocytes # (auto) 1.33 K/uL (1.2-3.4); Lymphocytes % (auto) 23.8 %; Mean Corpuscular Hemoglobin 31.4 pg (25-34); Mean Corpuscular Hgb Conc 32.2 g/dL (32-36); Mean Corpuscular Volume 97.3 fL (80-100); Mean Platelet Volume 10.2 fL (7.4-10.4); Monocytes # (auto) 0.63 K/uL (0.11-0.59); Monocytes % (auto) 11.3 %; Neutrophils # (auto) 3.41 K/uL (1.4-6.5); Platelet Count 163 K/uL (130-400); RDW Coefficient of Variation 14.1 % (11.5-14.5); RDW Standard Deviation 50.2 fL (36.4-46.3); Red Blood Count 3.73 M/uL (4.2-5.4); White Blood Count 5.59 K/uL (4.8-10.8)
[2019-01-09 13:56] LABS: INR 1.2 (0.9-1.1); Prothrombin Time 12.6 Seconds (9.0-12.0)
[2019-01-09 14:08] LABS: Alanine Aminotransferase 23 U/L (12-78); Albumin Level 3.5 gm/dl (3.4-5.0); Aspartate Aminotransferase 19 U/L (15-37); BUN Creatinine Ratio 19.1 (10-20); Blood Urea Nitrogen 39 mg/dl (7-18); Calcium 8.4 mg/dl (8.5-10.1); Carbon Dioxide 20 mmol/L (21-32); Chloride 112 mmol/L (98-107); Creatinine Clr Calc Pharmacy 30.1 ml/min; Est GFR (African American) 26.3; Est GFR (Non-African American) 22.7; Glucose 80 mg/dl (70-99); Lipase 222 U/L (73-393); Magnesium 1.9 mg/dl (1.8-2.4); Potassium 5.3 mmol/L (3.5-5.1); Sodium 140 mmol/L (136-145)
[2019-01-09 14:19] LABS: Alkaline Phosphatase 103 U/L (45-117); Bilirubin,Total 0.5 mg/dl (0.2-1); Globulin 3.5 gm/dl (2.5-4.0); NT Pro B Type Natriuretic Pept > 35000 pg/ml (0-1800); Troponin I < 0.015 ng/ml (0-0.045)
[2019-01-09] MEDS ORDERED: FUROSEMIDE 40 MG/4 ML VIAL IV STA (15:37)
--- NOTE | 2019-01-09 16:56 | History & Physical Report ---
Date of Service January 09, 2019 Assessment & Plan (1) Acute on chronic systolic (congestive) heart failure: patient presents with symptoms of progressive orthopnea, dyspnea on exertion, worse over the past three weeks BNP markedly elevated, CXR without obvious pulmonary edema given Lasix 40mg IV in the ED, still waiting to make urine but just got it at 330pm will place harmon to keep accurate output measurements plan for Zaroxolyn 5mg tomorrow AM and Lasix 40mg IV again check echocardiogram consult Dr. Lund to see tomorrow daily weights, fluid restrict to 1500mL a day (2) Hyperkalemia: mild at 5.3 should improve with Lasix IV will repeat BMP at 2100 (3) Dyspnea on exertion: progressive over past 3 weeks she only gets her weight once a week on Fridays at [facility] (4) CKD (chronic kidney disease), stage IV: Cr is at baseline, between 1.9 and 2.1 will monitor daily on Lasix based on GFR of 20's she would be stage IV (5) Atrial fibrillation: chronic, on Eliquis HR is well controlled (6) DM w/o complication type II: diet controlled (7) Lymphedema: chronic ongoing condition she reports no recent changes in leg swelling (8) Obesity: (9) Dyslipidemia: History of Present Illness Chief Complaint: I am having trouble breathing Primary Care Provider: [facility] 78 yo female with history of chronic systolic heart failure, DVT, afib, CAD, obesity, anxiety, chronic lymphedema who presents to the ED today c/o progressive shortness of breath. She says that she first noticed some symptoms three weeks ago. They were mild and intermittent at that time. She was having a difficult time sleeping in her bed, due to dyspnea. She found it easier to s leep in her recliner. She also noted some dyspnea on exertion. She says that she has her weight taken every Sunday at [facility], she is unsure of what her trend has been, due to get weight tomorrow. Today her symptoms got worse, she had to stop three times when walking from her room to the dining vazquez which was about 100ft. She admitted to some intermittent chest pain, not associated with exertion. The pain was reproducible. She has had some loose stools as well. No abdominal pain. No fever or chills or other signs of infections. No cough In the ED her BNP was > 14863. CXR showed some pulmonary congestion but did not show sarai pulmonary edema. Vitals were stable, breathing well. EKG without ischemic changes and troponin negative. She was given Lasix 40mg IV and asked for admission. Allergies Allergy/AdvReac Type Severity Reaction Status Date / Time adhesive AdvReac Intermediate RASH Verified 01/09/19 17:48 morphine AdvReac Intermediate VOMITING Verified 06/12/17 07:44 Home Medications Home Medications Medication Instructions Recorded Confirmed Type levothyroxine 50 mcg capsule 50 mcg PO DAILY #30 cap 10/24/18 01/09/19 Rx furosemide 40 mg tablet 40 mg PO DAILY #30 tab 12/17/18 01/09/19 Rx acetaminophen [Tylenol Arthritis 650 mg PO Q12H 01/09/19 01/09/19 History Pain] amoxicillin 500 mg PO DIRECTED 01/09/19 01/09/19 History apixaban [Eliquis] 2.5 mg PO TID 01/09/19 01/09/19 History cetirizine 5 mg PO DAILY 01/09/19 01/09/19 History diphenoxylate-atropine 1 tab PO QID PRN 01/09/19 01/09/19 History docusate sodium [Doc-Q-Lace] 100 mg PO DAILY PRN 01/09/19 01/09/19 History lisinopril 5 mg PO DAILY 01/09/19 01/09/19 History loratadine 10 mg PO DAILY PRN 01/09/19 01/09/19 History lorazepam 1 mg PO DAILY PRN 01/09/19 01/09/19 History lorazepam 1 mg PO HS 01/09/19 01/09/19 History multivitamin 2 tab PO DAILY 01/09/19 01/09/19 History inujsxvfcmuq-wodnpivp-bmtscr 1 tab PO DAILY 01/09/19 01/09/19 History [Vision Plus Lutein] ondansetron 4 mg PO Q8H PRN 01/09/19 01/09/19 History polyethylene glycol 3350 17 g PO DAILY PRN 01/09/19 01/09/19 History ranitidine HCl 150 mg PO BID 01/09/19 01/09/19 History sertraline 75 mg PO DAILY 01/09/19 01/09/19 History tramadol 50 mg PO DAILY PRN 01/09/19 01/09/19 History tramadol 50 mg PO HS 01/09/19 01/09/19 History Past Med/Surg History Medical History Choledocholithiasis (Acute 05/02/13) CKD (chronic kidney disease) (Chronic) Elevated LFTs (Acute) Dyslipidemia (Chronic) Cardiomyopathy (Chronic) "echo - eF - 40- 45% (09/19/2012)" Lymphedema (Chronic) DM w/o complication type II (Chronic) Atrial fibrillation (Chronic) DVT (deep venous thrombosis) (Resolved) PE (pulmonary embolism) (Resolved) TIA (transient ischemic attack) (Resolved) "november 2012" Cholelithiases (Acute) UTI (urinary tract infection) Surgical History S/P TKR (total knee replacement) (Resolved) "BILATERAL" Hip joint replacement status (Resolved) "RIGHT" H/O cardiac catheterization (Resolved) "IN 2005 - as per patient - this was normal" Family History Other Cancer Family history non-contributory Social History Preferred Language: Kyrgyz Communication Ability: Effective Beliefs That Will Affect Care: None marital status: / Current Living Situation: Personal Care Facility current occupational status: retired Other Information That Helps Us Care for You: No Feels Safe at Home: Yes Safety Concerns: Feels Safe At This Time Smoking Status: Never smoker Hx Alcohol Use: No Hx Substance Use: No Review of Systems Review of Systems: All systems reviewed & are unremarkable except as noted in HPI & below Constitutional: + fatigue and + weakness; no fever, no chills and no sweats Respiratory: + dyspnea on exertion; no cough, no hemoptysis, no sputum production and no wheezing Cardiovascular: + chest pain, + chest pain at rest, + dyspnea on exertion, + orthopnea and + edema; no chest pain with activity, no dyspnea at rest and no syncope Gastrointestinal: + diarrhea/loose stools; no abdominal pain, no nausea, no vomiting and no constipation Genitourinary: no urinary incontinence Physical Exam Constitutional: WD/WN, vitals as above + obese Eyes: PERRL, conjunctivae normal, anicteric sclerae ENMT: external ear and nose normal, oropharynx normal Neck: trachea midline, no thyromegaly Respiratory: normal respiratory effort, lungs clear to auscultation Cardiovascular: Rate/Rhythm: regular rate and + irregularly irregular Heart Sounds: normal S1 and normal S2; no murmur Vessels: no JVD Extremities: normal capillary refill and + edema (trace bilaterally) Gastrointestinal (Abdomen): normal bowel sounds, soft, nontender, no hepatosplenomegaly Musculoskeletal: no cyanosis or clubbing, extremities motor strength 5/5 Skin: no rashes, warm and dry + dry skin Neurologic: patellar DTR's 2+ bilat, sensation intact and PERRL, EOMI, accommodation nl, no face palsy, no dysarthria Psychiatric: A+Ox3, euthymic affect Lymphatic: no cervical or axillary lymphadenopathy Results & Data Vital Signs (Past 12 Hours) Vital Signs Temp Pulse Resp BP Pulse Ox 01/09/19 14:30 51 L 17 97 01/09/19 14:00 57 L 21 98 01/09/19 13:54 63 19 133/93 99 01/09/19 13:30 58 L 18 01/09/19 13:12 98 01/09/19 13:00 60 16 98 01/09/19 12:59 36.6 C 72 16 123/78 98 01/09/19 12:51 59 L 24 123/70 99 01/09/19 12:50 63 24 01/09/19 12:49 73 11 L Laboratory Results Laboratory Results - last 24 hr 01/09/19 01/09/19 01/09/19 13:32 13:32 13:32 WBC 5.59 RBC 3.73 L Hgb 11.7 L Hct 36.3 L MCV 97.3 MCH 31.4 MCHC 32.2 RDW Std Deviation 50.2 H RDW Coeff of Amalia 14.1 Plt Count 163 MPV 10.2 Immature Gran % (Auto) 0.2 Neut % (Auto) 61.0 Lymph % (Auto) 23.8 Cuming % (Auto) 11.3 Eos % (Auto) 3.2 Baso % (Auto) 0.5 Immature Gran # (Auto) 0.01 Neut # (Auto) 3.41 Lymph # (Auto) 1.33 Cuming # (Auto) 0.63 H Eos # (Auto) 0.18 Baso # (Auto) 0.03 PT 12.6 H INR 1.2 H VBG pH VBG pCO2 VBG pO2 VBG HCO3 VBG O2 Saturation VBG Base Excess Barometric Pressure Sodium 140 Potassium 5.3 H Chloride 112 H Carbon Dioxide 20 L Anion Gap 8.0 BUN 39 H Creatinine 2.02 H Est Cr Clr Drug Dosing 30.1 Est GFR ( Amer) 26.3 Est GFR (Non-Af Amer) 22.7 BUN/Creatinine Ratio 19.1 Glucose 80 Calcium 8.4 L Phosphorus 4.0 Magnesium 1.9 Total Bilirubin 0.5 AST 19 ALT 23 Alkaline Phosphatase 103 Troponin I < 0.015 NT-Pro-B Natriuret Pep > 61902 H Total Protein 7.0 Albumin 3.5 Globulin 3.5 Albumin/Globulin Ratio 1.0 Lipase 222 01/09/19 13:33 WBC RBC Hgb Hct MCV MCH MCHC RDW Std Deviation RDW Coeff of Amalia Plt Count MPV Immature Gran % (Auto) Neut % (Auto) Lymph % (Auto) Cuming % (Auto) Eos % (Auto) Baso % (Auto) Immature Gran # (Auto) Neut # (Auto) Lymph # (Auto) Cuming # (Auto) Eos # (Auto) Baso # (Auto) PT INR VBG pH 7.30 L VBG pCO2 41 VBG pO2 24 VBG HCO3 20 VBG O2 Saturation < 60.0 VBG Base Excess -6.5 Barometric Pressure 730.2 Sodium Potassium Chloride Carbon Dioxide Anion Gap BUN Creatinine Est Cr Clr Drug Dosing Est GFR ( Amer) Est GFR (Non-Af Amer) BUN/Creatinine Ratio Glucose Calcium Phosphorus Magnesium Total Bilirubin AST ALT Alkaline Phosphatase Troponin I NT-Pro-B Natriuret Pep Total Protein Albumin Globulin Albumin/Globulin Ratio Lipase Diagnostic Findings SINGLE VIEW CHEST CLINICAL HISTORY: Atypical chest pain. FINDINGS: An AP, portable, upright chest radiograph is compared to study dated 08/17/2016 and correlated with chest CT dated 08/15/2016. The examination is degraded by portable technique and patient rotation. The heart is enlarged and there is atherosclerotic calcification of the thoracic aorta. The pulmonary vasculature is noncongested. Linear airspace opacities are present in the mid lung bilaterally. No large pleural effusion or pneumothorax is seen. The skeletal structures are osteopenic. Advanced degenerative changes noted in the shoulders, and there is evidence of chronic bilateral rotator cuff tear. The bony thorax is grossly intact. IMPRESSION: 1. Cardiomegaly without radiographic evidence of congestive failure. 2. Linear opacities are seen in the mid lung bilaterally. This likely represents scarring/atelectasis. Correlate clinically for evidence of a superimposed inf ectious/inflammatory pneumonitis. Code Status & VTE Plan VTE Prophylaxis Plan VTE Prophylaxis will be ordered: Yes PG Care Time/CCT Total # of Minutes Spent Total Time Spent with Patient: Total time spent is greater than 50% in coordination of care (as documented) at patient's floor/unit and/or counseling patient:
[2019-01-09] MEDS ORDERED: ACETAMINOPHEN 325 MG TAB PO PRN (17:41)
[2019-01-09] MEDS ORDERED: LORazepam 1 MG TAB PO PRN (17:41)
[2019-01-09] MEDS ORDERED: ONDANSETRON INJ 2 MG/ML 2 ML VIAL IV PRN (17:41)
[2019-01-09] MEDS ORDERED: HydrALAZINE HCL 20 MG/ML VIAL IV PRN (17:41)
--- NOTE | 2019-01-09 19:15 | Emergency Department Note ---
Entered by Lisette Fermin acting as a scribe for History of Present Illness General Chief complaint: Shortness of Breath/Dyspnea Stated complaint: sob/respiratory Time Seen by Provider: 01/09/19 13:16 Source: patient History of Present Illness Onset (ago): day(s) (today) Location: chest Pain Consistency: + other (worsening) Maximum Pain Intensity: 10 Quality: + other (shortness of breath) Associated symptoms: + denies other symptoms (new leg swelling, congestion), + confusion and + other (blue/purple lips, weight gain); no cough and no fever/chills The patient is an 78 year old female who presents to the Emergency Room with complaints of worsening shortness of breath starting today. The patient states that she lives at [facility] and has a history of CHF and A-Fib. She reports that for the past 3 weeks she has been feeling short of breath. She states that she didnt say anything or see anyone for it as she thought it would just go away, but today it became much worse. She notes that someone yesterday told her her lips looked blue. She reports that today they told her they looked purple and started her on O2. The patient complains of gaining some weight. She notes that she is on Eliquis. The patients daughter complains of her mother being slightly confused. The patient denies new leg swelling, fever, chills, cough, congestion, a history of COPD, and having inhalers. Home Medications Home Medications Medication Instructions Recorded Confirmed Type levothyroxine 50 mcg capsule 50 mcg PO DAILY #30 cap 10/24/18 01/09/19 Rx furosemide 40 mg tablet 40 mg PO DAILY #30 tab 12/17/18 01/09/19 Rx acetaminophen [Tylenol Arthritis 650 mg PO Q12H 01/09/19 01/09/19 History Pain] amoxicillin 500 mg PO DIRECTED 01/09/19 01/09/19 History apixaban [Eliquis] 2.5 mg PO TID 01/09/19 01/09/19 History cetirizine 5 mg PO DAILY 01/09/19 01/09/19 History diphenoxylate-atropine 1 tab PO QID PRN 01/09/19 01/09/19 History docusate sodium [Doc-Q-Lace] 100 mg PO DAILY PRN 01/09/19 01/09/19 History lisinopril 5 mg PO DAILY 01/09/19 01/09/19 History loratadine 10 mg PO DAILY PRN 01/09/19 01/09/19 History lorazepam 1 mg PO DAILY PRN 01/09/19 01/09/19 History lorazepam 1 mg PO HS 01/09/19 01/09/19 History multivitamin 2 tab PO DAILY 01/09/19 01/09/19 History lqrxeqgrkfrr-qvddgfjo-aicnby 1 tab PO DAILY 01/09/19 01/09/19 History [Vision Plus Lutein] ondansetron 4 mg PO Q8H PRN 01/09/19 01/09/19 History polyethylene glycol 3350 17 g PO DAILY PRN 01/09/19 01/09/19 History ranitidine HCl 150 mg PO BID 01/09/19 01/09/19 History sertraline 75 mg PO DAILY 01/09/19 01/09/19 History tramadol 50 mg PO DAILY PRN 01/09/19 01/09/19 History tramadol 50 mg PO HS 01/09/19 01/09/19 History Allergies Allergy/AdvReac Type Severity Reaction Status Date / Time adhesive AdvReac Intermediate RASH Verified 01/09/19 17:48 morphine AdvReac Intermediate VOMITING Verified 06/12/17 07:44 Past Med/Surg History Medical History Choledocholithiasis (Acute 05/02/13) CKD (chronic kidney disease) (Chronic) Elevated LFTs (Acute) Dyslipidemia (Chronic) Cardiomyopathy (Chronic) "echo - eF - 40- 45% (09/19/2012)" Lymphedema (Chronic) DM w/o complication type II (Chronic) Atrial fibrillation (Chronic) DVT (deep venous thrombosis) (Resolved) PE (pulmonary embolism) (Resolved) TIA (transient ischemic attack) (Resolved) "november 2012" Cholelithiases (Acute) UTI (urinary tract infection) Surgical History S/P TKR (total knee replacement) (Resolved) "BILATERAL" Hip joint replacement status (Resolved) "RIGHT" H/O cardiac catheterization (Resolved) "IN 2005 - as per patient - this was normal" Family History Other Family history non-contributory Social History Preferred Language: Armenian Communication Ability: Effective Beliefs That Will Affect Care: None marital status: / Current Living Situation: Personal Care Facility current occupational status: retired Other Information That Helps Us Care for You: No Feels Safe at Home: Yes Safety Concerns: Feels Safe At This Time Smoking Status: Never smoker Hx Alcohol Use: No Hx Substance Use: No Review of Systems See HPI for pertinent positives & negatives. and A total of 10 systems reviewed and were otherwise negative Physical Exam Vital Signs Vital Signs - 24 hr 01/09/19 12:49 01/09/19 12:50 01/09/19 12:51 Temperature Temperature Source Sepsis Recent Fever Within 48 Hours Sepsis Action Taken by Nursing Pulse Rate 73 63 59 L Pulse Rate from SpO2 Sensor 60 Pulse Rhythm Pulse Strength Respiratory Rate 11 L 24 24 Respiratory Effort / Characteristics Respiratory Depth Respiratory Pattern Blood Pressure 123/70 Blood Pressure Mean 107 87 Blood Pressure Position Pulse Oximetry 99 Oxygen Delivery Method Oxygen Flow Rate 01/09/19 12:59 01/09/19 13:00 01/09/19 13:12 Temperature 36.6 C Temperature Source Oral Sepsis Recent Fever Within 48 Hours No Sepsis Action Taken by Nursing No Action Required Pulse Rate 72 60 Pulse Rate from SpO2 Sensor 61 Pulse Rhythm Regular Pulse Strength Normal Respiratory Rate 16 16 Respiratory Effort / Characteristics Non-Labored Respiratory Depth Normal Respiratory Pattern Regular Blood Pressure 123/78 Blood Pressure Mean 93 Blood Pressure Position Lying Pulse Oximetry 98 98 98 Oxygen Delivery Method Nasal Cannula Nasal Cannula Oxygen Flow Rate 2 2 01/09/19 13:30 01/09/19 13:54 01/09/19 14:00 Temperature Temperature Source Sepsis Recent Fever Within 48 Hours Sepsis Action Taken by Nursing Pulse Rate 58 L 63 57 L Pulse Rate from SpO2 Sensor 54 L 56 L Pulse Rhythm Pulse Strength Respiratory Rate 18 19 21 Respiratory Effort / Characteristics Respiratory Depth Respiratory Pattern Blood Pressure 133/93 Blood Pressure Mean 106 Blood Pressure Position Pulse Oximetry 99 98 Oxygen Delivery Method Oxygen Flow Rate 01/09/19 14:30 Temperature Temperature Source Sepsis Recent Fever Within 48 Hours Sepsis Action Taken by Nursing Pulse Rate 51 L Pulse Rate from SpO2 Sensor 50 L Pulse Rhythm Pulse Strength Respiratory Rate 17 Respiratory Effort / Characteristics Respiratory Depth Respiratory Pattern Blood Pressure Blood Pressure Mean Blood Pressure Position Pulse Oximetry 97 Oxygen Delivery Method Oxygen Flow Rate GENERAL: Awake, alert, chronically ill-appearing, in no distress HENT: Normocephalic, atraumatic. Oropharynx unremarkable. Mucous membranes dry. EYES: Normal conjunctiva. Sclera non-icteric. NECK: Supple. No nuchal rigidity. FROM. No JVD. RESPIRATORY: Diminished breath sounds at the bases otherwise clear. CARDIAC: Regular rate, normal rhythm. Extremities warm and well perfused. Pulses equal. ABDOMEN: Soft, non-distended. No tenderness to palpation. No rebound or guarding. No masses. RECTAL: Deferred. MUSCULOSKELETAL: Chest examination reveals no tenderness. The back is symmetrical on inspection without obvious abnormality. There is no CVA tende rness to palpation. No joint edema. LOWER EXTREMITIES: Calves are equal size bilaterally and non-tender. 1+ BLE edema.. No discoloration. NEURO: Normal sensorium. No sensory or motor deficits noted. SKIN: No rash or jaundice noted. Course 1329: Past medical records reviewed. The patient was evaluated in room C6. A complete history and physical exam was performed. 1521: I reevaluated the patient and updated her on her test results. I discussed the treatment plan with her. She verbally agrees and understands. 1540: I discussed the patient's case with LACEY Villanueva Hospitalist. She will evaluate the patient for further management. Consultations Consultation #1: I discussed the patient's case with LACEY Villanueva Hospitalist. She will evaluate the patient for further management. Time: 15:40 Administered Medications Apixaban (Eliquis) 2.5 mg PO BID MARY Stop: 02/08/19 20:59 Last Admin: 01/09/19 21:09 Dose: 2.5 mg Documented by: [id number] Lorazepam (Ativan) 1 mg PO HS MARY Stop: 02/08/19 20:59 Last Admin: 01/09/19 21:08 Dose: 1 mg Documented by: [id number] Tramadol HCl (Ultram) 50 mg PO HS MARY Stop: 02/08/19 20:59 Last Admin: 01/09/19 21:08 Dose: 50 mg Documented by: [id number] Discontinued Medications Furosemide (Lasix) 40 mg IV NOW STA Stop: 01/09/19 15:38 Last Admin: 01/09/19 16:30 Dose: 40 mg Documented by: [id number] Medical Decision Making Differential Diagnosis Differential diagnoses includes but is not limited to pneumonia, bronchitis, COPD/Asthma exacerbation, pneumothorax, pulmonary embolism, congestive heart failure, acute coronary syndrome Medical Records Attestation: I reviewed the patient's medical records. Home Medications Current Medication List: was personally reviewed by me Laboratory Data Attestation: I reviewed the patient's lab results. Result diagrams: 01/09/19 13:32 01/09/19 20:50 Lab Results 01/09/19 01/09/19 01/09/19 Range/Units 13:32 13:32 13:32 WBC 5.59 (4.8-10.8) K/uL RBC 3.73 L (4.2-5.4) M/uL Hgb 11.7 L (12.0-16.0) g/dL Hct 36.3 L (37-47) % MCV 97.3 (80-100) fL MCH 31.4 (25-34) pg MCHC 32.2 (32-36) g/dL RDW Std Deviation 50.2 H (36.4-46.3) fL RDW Coeff of Amalia 14.1 (11.5-14.5) % Plt Count 163 (130-400) K/uL MPV 10.2 (7.4-10.4) fL Immature Gran % (Auto) 0.2 % Neut % (Auto) 61.0 % Lymph % (Auto) 23.8 % [place] % (Auto) 11.3 % Eos % (Auto) 3.2 % Baso % (Auto) 0.5 % Immature Gran # (Auto) 0.01 (0.00-0.02) K/uL Neut # (Auto) 3.41 (1.4-6.5) K/uL Lymph # (Auto) 1.33 (1.2-3.4) K/uL [place] # (Auto) 0.63 H (0.11-0.59) K/uL Eos # (Auto) 0.18 (0-0.5) K/uL Baso # (Auto) 0.03 (0-0.2) K/uL PT 12.6 H (9.0-12.0) Seconds INR 1.2 H (0.9-1.1) VBG pH (7.36-7.41) VBG pCO2 (38-50) mmHg VBG pO2 mmHg VBG HCO3 mmol/L VBG O2 Saturation % VBG Base Excess mEq/L Barometric Pressure mm/Hg Sodium 140 (136-145) mmol/L Potassium 5.3 H (3.5-5.1) mmol/L Chloride 112 H (98-107) mmol/L Carbon Dioxide 20 L (21-32) mmol/L Anion Gap 8.0 (3-11) BUN 39 H (7-18) mg/dl Creatinine 2.02 H (0.6-1.2) mg/dl Est Cr Clr Drug Dosing 30.1 ml/min Est GFR ( Amer) 26.3 Est GFR (Non-Af Amer) 22.7 BUN/Creatinine Ratio 19.1 (10-20) Glucose 80 (70-99) mg/dl Calcium 8.4 L (8.5-10.1) mg/dl Phosphorus 4.0 (2.5-4.9) mg/dl Magnesium 1.9 (1.8-2.4) mg/dl Total Bilirubin 0.5 (0.2-1) mg/dl AST 19 (15-37) U/L ALT 23 (12-78) U/L Alkaline Phosphatase 103 (45-117) U/L Troponin I < 0.015 (0-0.045) ng/ml NT-Pro-B Natriuret Pep > 82157 H (0-1800) pg/ml Total Protein 7.0 (6.4-8.2) gm/dl Albumin 3.5 (3.4-5.0) gm/dl Globulin 3.5 (2.5-4.0) gm/dl Albumin/Globulin Ratio 1.0 (0.9-2) Lipase 222 (73-393) U/L 01/09/19 Range/Units 13:33 WBC (4.8-10.8) K/uL RBC (4.2-5.4) M/uL Hgb (12.0-16.0) g/dL Hct (37-47) % MCV (80-100) fL MCH (25-34) pg MCHC (32-36) g/dL RDW Std Deviation (36.4-46.3) fL RDW Coeff of Amalia (11.5-14.5) % Plt Count (130-400) K/uL MPV (7.4-10.4) fL Immature Gran % (Auto) % Neut % (Auto) % Lymph % (Auto) % [place] % (Auto) % Eos % (Auto) % Baso % (Auto) % Immature Gran # (Auto) (0.00-0.02) K/uL Neut # (Auto) (1.4-6.5) K/uL Lymph # (Auto) (1.2-3.4) K/uL [place] # (Auto) (0.11-0.59) K/uL Eos # (Auto) (0-0.5) K/uL Baso # (Auto) (0-0.2) K/uL PT (9.0-12.0) Seconds INR (0.9-1.1) VBG pH 7.30 L (7.36-7.41) VBG pCO2 41 (38-50) mmHg VBG pO2 24 mmHg VBG HCO3 20 mmol/L VBG O2 Saturation < 60.0 % VBG Base Excess -6.5 mEq/L Barometric Pressure 730.2 mm/Hg Sodium (136-145) mmol/L Potassium (3.5-5.1) mmol/L Chloride (98-107) mmol/L Carbon Dioxide (21-32) mmol/L Anion Gap (3-11) BUN (7-18) mg/dl Creatinine (0.6-1.2) mg/dl Est Cr Clr Drug Dosing ml/min Est GFR ( Amer) Est GFR (Non-Af Amer) BUN/Creatinine Ratio (10-20) Glucose (70-99) mg/dl Calcium (8.5-10.1) mg/dl Phosphorus (2.5-4.9) mg/dl Magnesium (1.8-2.4) mg/dl Total Bilirubin (0.2-1) mg/dl AST (15-37) U/L ALT (12-78) U/L Alkaline Phosphatase (45-117) U/L Troponin I (0-0.045) ng/ml NT-Pro-B Natriuret Pep (0-1800) pg/ml Total Protein (6.4-8.2) gm/dl Albumin (3.4-5.0) gm/dl Globulin (2.5-4.0) gm/dl Albumin/Globulin Ratio (0.9-2) Lipase (73-393) U/L Imaging Data Radiologist's Impression: Radiology results as stated below per my review and the radiologist's interpretation: SINGLE VIEW CHEST CLINICAL HISTORY: Atypical chest pain. FINDINGS: An AP, portable, upright chest radiograph is compared to study dated 08/17/2016 and correlated with chest CT dated 08/15/2016. The examination is degraded by portable technique and patient rotation. The heart is enlarged and there is atherosclerotic calcification of the thoracic aorta. The pulmonary vasculature is noncongested. Linear airspace opacities are present in the mid lung bilaterally. No large pleural effusion or pneumothorax is seen. The skeletal structures are osteopenic. Advanced degenerative changes noted in the shoulders, and there is evidence of chronic bilateral rotator cuff tear. The bony thorax is grossly intact. IMPRESSION: 1. Cardiomegaly without radiographic evidence of congestive failure. 2. Linear opacities are seen in the mid lung bilaterally. This likely represents scarring/atelectasis. Correlate clinically for evidence of a superimposed infectious/inflammatory pneumonitis. Electronically signed by: Gee Hamilton M.D. 01/09/2019 1:34 PM ECG Data Attestation: I personally reviewed and interpreted this ECG as follows: Indication: SOB/dyspnea Rate (beats per minute): 62 Rhythm: sinus rhythm Findings: + other (QRS 126), + 1st degree AV block and + LBBB; no acute ischemic change Comparison ECG Date: from (08/19/2016) Change: the following changes noted (QRS 108 with similar LBBB morphology) Blood Pressure Blood Pressure Findings: Normal blood pressure Blood Pressure Disposition: did not require urgent referral MDM Narrative The patient is a pleasant 78-year-old woman with a past medical history of CKD, CHF, afib on eliquis who presents emergency department with worsening shortness of breath over the past couple of weeks which became worse over the past 24 hours per hpi. Of note the patient was found to have circumoral cyanosis by EMS and placed on 2 L nasal cannula. She reports she was told yesterday that her lips did appear blue. Patient does report a slight increase in her weight and sense of fluid retention. Denies fevers or cough. On arrival the patient is chronically ill-appearing but no acute distress, afebrile stable vital signs. EKG demonstrates sinus rhythm with first-degree AV block without overt acute ischemia. Left bundle branch block is present with similar morphology previously though increased QRS today. WBC within normal limits. H/H 11.7/36.3 approximate to prior values. Platelets within normal limits. VBG with pH of 7.3. Chemistry without significant acidosis. Creatinine 2.02 within range of prior values in the setting of the patient CKD. Potassium 5.5 and electrolytes and and LFTs otherwise unremarkable. Troponin negative. BNP is> 35K, which upon discussion with the patient's daughter they reported that she has been known to have chronically high values around 28K, high value may be further pronounced by the patient's renal disease. Patient's previous echo in the [place] system documents prior EF of 40-45. Limited bedside echo was performed and LV systolic function similar to slightly more reduced today per MAPSE of 7.5mm. Given the patient's elevated BNP in the setting of her report of increased weight gain symptoms likely related to a component of her CHF. Patient was given IV dose of Lasix. Case was d/w TOPHER Villanueva PAC, [place] team will evaluate the patient for admission. Impression & Plan Fluid overload, CHF (congestive heart failure), CKD (chronic kidney disease), stage IV Discharge Plan Visit Data *Final* Discharge Date/Time: 01/09/19 17:26 Chief Complaint: Shortness of Breath/Dyspnea Stated Complaint: sob/respiratory ED Provider: Marquis Calle Discharge Problem: Fluid overload, CHF (congestive heart failure), CKD (chronic kidney disease), stage IV Patient Disposition: Admitted As Inpatient Discharge Instructions Interventions: ED Discharge Assessment Last Done: 01/09/19 17:26 Discharge Problem: Fluid overload Qualifiers: Hypervolemia type: unspecified Qualified Code(s): E87.70 - Fluid overload, unspecified CHF (congestive heart failure) Qualifiers: Heart failure type: unspecified Heart failure chronicity: unspecified Qualified Code(s): I50.9 - Heart failure, unspecified The scribe's documentation has been prepared under my direction and personally reviewed by me in its entirety. I confirm that the note above accurately reflec ts all work, treatment, procedures, and medical decision making performed by me.
[2019-01-09] MEDS: LORazepam 1 MG TAB PO SCH (21:08)
[2019-01-09] MEDS: TRAMADOL HCL 50 MG TABLET PO SCH (21:08)
[2019-01-09] MEDS: APIXABAN 2.5 MG TAB PO SCH (21:09)
[2019-01-09 21:26] LABS: Calcium 8.3 mg/dl (8.5-10.1); Creatinine Clr Calc Pharmacy 28.5 ml/min; Est GFR (African American) 24.7; Est GFR (Non-African American) 21.3; Potassium 5.1 mmol/L (3.5-5.1)
[2019-01-10] MEDS: LEVOTHYROXINE SODIUM 50 MCG TABLET PO SCH (06:07)
[2019-01-10 06:56] LABS: Hematocrit (blood only) 34.8 % (37-47); Mean Corpuscular Hemoglobin 31.1 pg (25-34); Mean Corpuscular Hgb Conc 31.6 g/dL (32-36); Mean Corpuscular Volume 98.3 fL (80-100); Mean Platelet Volume 10.6 fL (7.4-10.4); Platelet Count 158 K/uL (130-400); RDW Coefficient of Variation 14.1 % (11.5-14.5); RDW Standard Deviation 50.3 fL (36.4-46.3); Red Blood Count 3.54 M/uL (4.2-5.4); White Blood Count 5.08 K/uL (4.8-10.8)
[2019-01-10 07:21] LABS: BUN Creatinine Ratio 19.1 (10-20); Blood Urea Nitrogen 39 mg/dl (7-18); Calcium 8.2 mg/dl (8.5-10.1); Carbon Dioxide 21 mmol/L (21-32); Chloride 114 mmol/L (98-107); Creatinine Clr Calc Pharmacy 27.9 ml/min; Est GFR (African American) 26.3; Est GFR (Non-African American) 22.7; Glucose 67 mg/dl (70-99); Potassium 5.2 mmol/L (3.5-5.1); Sodium 141 mmol/L (136-145)
[2019-01-10 07:25] LABS: Troponin I < 0.015 ng/ml (0-0.045)
[2019-01-10] MEDS: LISINOPRIL 5 MG TAB PO SCH (08:34)
[2019-01-10] MEDS: FUROSEMIDE 40 MG in SYRINGE 0 ML IV SCH (08:34)
[2019-01-10] MEDS: CETIRIZINE HCL 10 MG TABLET PO SCH (08:35)
[2019-01-10] MEDS: APIXABAN 2.5 MG TAB PO SCH ×2 (08:35→20:31)
[2019-01-10] MEDS: SERTRALINE HCL 50 MG TABLET PO SCH (08:35)
[2019-01-10] MEDS ORDERED: metOLazone 5 MG TABLET PO SCH (09:00)
[2019-01-10] MEDS: NYSTATIN CR 15 GM TUBE EXT SCH ×2 (12:49→20:31)
--- NOTE | 2019-01-10 13:21 | Hospitalist Progress Note ---
Date of Service January 10, 2019 Assessment & Plan (1) Acute on chronic systolic (congestive) heart failure: patient presents with symptoms of progressive orthopnea, dyspnea on exertion, worse over the past three weeks BNP markedly elevated, CXR without obvious pulmonary edema negative fluid balance for 2800mL thus far this was prior to getting Zaroxolyn and Lasix 40mg IV this morning will hold the Zaroxolyn and Lasix scheduled for tomorrow until BMP is checked repeat BNP tomorrow echo done, follow up results, prior EF was 30% continue daily weights, fluid restrict to 1500mL a day make full admission as she will be here 2 midnights (2) Hyperkalemia: mild at 5.2 it did improved last night to 5.1 will repeat BMP this afternoon to recheck give Kayexalate if still high (3) Dyspnea on exertion: progressive over past 3 weeks she only gets her weight once a week on Fridays at [facility] due to heart failure improved a little today (4) CKD (chronic kidney disease), stage IV: Cr is at baseline, between 1.9 and 2.1 will monitor daily on Lasix based on GFR of 20's she would be stage IV recommend referral to Nephrology as outpatient daughter will reach out to Dr. Grant (5) Atrial fibrillation: chronic, on Eliquis HR is well controlled was supposed to be on Coreg 25mg BID, not taking now? HR in 50's at times so might have been stopped due to bradycardia (6) DM w/o complication type II: diet controlled (7) Lymphedema: chronic ongoing condition she reports no recent changes in leg swelling (8) Obesity: (9) Dyslipidemia: Subjective patient sitting up in a chair this morning, breathing easy, no distress denies any chest pain, reviewed that her troponin was negative x 3 sets reviewed I/O, she is negative 2800mL since admission, harmon catheter in place weighed this morning, either admission weight or weight this morning inaccurate, will repeat tomorrow she is eating okay reviewed labs, Cr stable at 2.0, K slightly high at 5.2 updated daughter at the bedside discussed having patient see nephrology, though this would be duran as outpatient since she is CKD stage IV discussed with [facility], she will see today will make patient full admission because she will be here this evening Review of Systems Review of Systems: All systems reviewed & are unremarkable except as noted in HPI & below Respiratory: + dyspnea on exertion (better) Cardiovascular: + dyspnea on exertion, + orthopnea and + edema; no chest pain Gastrointestinal: no abdominal pain, no nausea, no vomiting, no constipation and no diarrhea/loose stools Physical Exam Constitutional: WD/WN, vitals as above + obese Eyes: PERRL, conjunctivae normal, anicteric sclerae ENMT: external ear and nose normal, oropharynx normal Neck: trachea midline, no thyromegaly Respiratory: normal respiratory effort, lungs clear to auscultation Cardiovascular: Rate/Rhythm: regular rate and + irregularly irregular Heart Sounds: normal S1 and normal S2; no murmur Vessels: no JVD Extremities: normal capillary refill and + edema (trace bilaterally) Gastrointestinal (Abdomen): normal bowel sounds, soft, nontender, no hepatosplenomegaly Musculoskeletal: no cyanosis or clubbing, extremities motor strength 5/5 Skin: no rashes, warm and dry + dry skin Neurologic: patellar DTR's 2+ bilat, sensation intact and PERRL, EOMI, accommodation nl, no face palsy, no dysarthria Psychiatric: A+Ox3, euthymic affect Lymphatic: no cervical or axillary lymphadenopathy Results & Data Vital Signs (Past 12 Hours) Vital Signs Temp Pulse Resp BP BP Pulse Ox 01/10/19 11:46 36.7 C 65 20 109/55 L 95 01/10/19 07:59 36.6 C 57 L 18 124/43 L 96 01/10/19 07:53 36.8 C 106 H 20 106/73 93 01/10/19 03:54 36.4 C L 52 L 16 127/64 98 Laboratory Results Laboratory Results - last 24 hr 01/09/19 01/09/19 01/09/19 13:32 13:32 13:32 WBC 5.59 RBC 3.73 L Hgb 11.7 L Hct 36.3 L MCV 97.3 MCH 31.4 MCHC 32.2 RDW Std Deviation 50.2 H RDW Coeff of Amalia 14.1 Plt Count 163 MPV 10.2 Immature Gran % (Auto) 0.2 Neut % (Auto) 61.0 Lymph % (Auto) 23.8 Valley % (Auto) 11.3 Eos % (Auto) 3.2 Baso % (Auto) 0.5 Immature Gran # (Auto) 0.01 Neut # (Auto) 3.41 Lymph # (Auto) 1.33 Valley # (Auto) 0.63 H Eos # (Auto) 0.18 Baso # (Auto) 0.03 PT 12.6 H INR 1.2 H VBG pH VBG pCO2 VBG pO2 VBG HCO3 VBG O2 Saturation VBG Base Excess Barometric Pressure Sodium 140 Potassium 5.3 H Chloride 112 H Carbon Dioxide 20 L Anion Gap 8.0 BUN 39 H Creatinine 2.02 H Est Cr Clr Drug Dosing 30.1 Est GFR ( Amer) 26.3 Est GFR (Non-Af Amer) 22.7 BUN/Creatinine Ratio 19.1 Glucose 80 Calcium 8.4 L Phosphorus 4.0 Magnesium 1.9 Total Bilirubin 0.5 AST 19 ALT 23 Alkaline Phosphatase 103 Troponin I < 0.015 NT-Pro-B Natriuret Pep > 15629 H Total Protein 7.0 Albumin 3.5 Globulin 3.5 Albumin/Globulin Ratio 1.0 Lipase 222 01/09/19 01/09/19 01/09/19 13:33 20:50 20:50 WBC RBC Hgb Hct MCV MCH MCHC RDW Std Deviation RDW Coeff of Amalia Plt Count MPV Immature Gran % (Auto) Neut % (Auto) Lymph % (Auto) Valley % (Auto) Eos % (Auto) Baso % (Auto) Immature Gran # (Auto) Neut # (Auto) Lymph # (Auto) Valley # (Auto) Eos # (Auto) Baso # (Auto) PT INR VBG pH 7.30 L VBG pCO2 41 VBG pO2 24 VBG HCO3 20 VBG O2 Saturation < 60.0 VBG Base Excess -6.5 Barometric Pressure 730.2 Sodium 141 Potassium 5.1 Chloride 115 H Carbon Dioxide 20 L Anion Gap 7.0 BUN 38 H Creatinine 2.13 H Est Cr Clr Drug Dosing 28.5 Est GFR ( Amer) 24.7 Est GFR (Non-Af Amer) 21.3 BUN/Creatinine Ratio 18.0 Glucose 83 Calcium 8.3 L Phosphorus Magnesium Total Bilirubin AST ALT Alkaline Phosphatase Troponin I < 0.015 NT-Pro-B Natriuret Pep Total Protein Albumin Globulin Albumin/Globulin Ratio Lipase 01/10/19 01/10/19 06:18 06:18 WBC 5.08 RBC 3.54 L Hgb 11.0 L Hct 34.8 L MCV 98.3 MCH 31.1 MCHC 31.6 L RDW Std Deviation 50.3 H RDW Coeff of Amalia 14.1 Plt Count 158 MPV 10.6 H Immature Gran % (Auto) Neut % (Auto) Lymph % (Auto) Valley % (Auto) Eos % (Auto) Baso % (Auto) Immature Gran # (Auto) Neut # (Auto) Lymph # (Auto) Valley # (Auto) Eos # (Auto) Baso # (Auto) PT INR VBG pH VBG pCO2 VBG pO2 VBG HCO3 VBG O2 Saturation VBG Base Excess Barometric Pressure Sodium 141 Potassium 5.2 H Chloride 114 H Carbon Dioxide 21 Anion Gap 6.0 BUN 39 H Creatinine 2.02 H Est Cr Clr Drug Dosing 27.9 Est GFR ( Amer) 26.3 Est GFR (Non-Af Amer) 22.7 BUN/Creatinine Ratio 19.1 Glucose 67 L Calcium 8.2 L Phosphorus Magnesium Total Bilirubin AST ALT Alkaline Phosphatase Troponin I < 0.015 NT-Pro-B Natriuret Pep Total Protein Albumin Globulin Albumin/Globulin Ratio Lipase Medications Administered Current Inpatient Medications Acetaminophen (Tylenol) 650 mg PO Q4H PRN PRN Reason: Pain or Fever Stop: 02/08/19 17:40 Apixaban (Eliquis) 2.5 mg PO BID [facility] Stop: 02/08/19 20:59 Last Admin: 01/10/19 08:35 Dose: 2.5 mg Documented by: Cetirizine HCl (Zyrtec) 5 mg PO DAILY [facility] Stop: 02/09/19 08:59 Last Admin: 01/10/19 08:35 Dose: 5 mg Documented by: Hydralazine HCl (Hydralazine Hcl) 10 mg IV Q6 PRN PRN Reason: Blood Pressure - High Stop: 02/08/19 17:40 Furosemide 40 mg/ Syringe 4 mls @ 4 mls/min IV QAM [facility] Stop: 02/09/19 08:59 Last Admin: 01/10/19 08:34 Dose: 4 mls/min Documented by: Levothyroxine Sodium (Synthroid) 50 mcg PO DAILYBB [facility] Stop: 02/09/19 06:29 Last Admin: 01/10/19 06:07 Dose: 50 mcg Documented by: Lisinopril (Zestril) 5 mg PO DAILY [facility] Stop: 02/09/19 08:59 Last Admin: 01/10/19 08:34 Dose: 5 mg Documented by: Lorazepam (Ativan) 1 mg PO HS [facility] Stop: 02/08/19 20:59 Last Admin: 01/09/19 21:08 Dose: 1 mg Documented by: Lorazepam (Ativan) 1 mg PO DAILY PRN PRN Reason: Anxiety Stop: 02/08/19 17:40 Metolazone (Zaroxolyn) 5 mg PO QAM [facility] Stop: 02/09/19 08:59 Last Admin: 01/10/19 08:35 Dose: 5 mg Documented by: Nystatin (Nystatin) 1 appln EXT BID [facility] Stop: 02/09/19 10:44 Last Admin: 01/10/19 12:49 Dose: 1 appln Documented by: Ondansetron HCl (Zofran) 4 mg IV Q6H PRN PRN Reason: Nausea Stop: 02/08/19 17:40 Sertraline HCl (Zoloft) 75 mg PO DAILY [facility] Stop: 02/09/19 08:59 Last Admin: 01/10/19 08:35 Dose: 75 mg Documented by: Tramadol HCl (Ultram) 50 mg PO HS [facility] Stop: 02/08/19 20:59 Last Admin: 01/09/19 21:08 Dose: 50 mg Documented by: Tramadol HCl (Ultram) 50 mg PO DAILY PRN PRN Reason: Pain Stop: 02/08/19 17:40 PG Care Time/CCT Total # of Minutes Spent Total Time Spent with Patient: Total time spent is greater than 50% in coordination of care (as documented) at patient's floor/unit and/or counseling patient:
--- NOTE | 2019-01-10 15:03 | Cardiology Consultation ---
Date of Consultation January 10, 2019 History of Present Illness Attending Physician: Alexey Elias DO Mrs. Aviles is an 78 year old female with history of hypertension, hypercholesterolemia, paroxysmal atrial fibrillation, peripheral vascular disease (RLE bypass, October 2010), cerebral vascular disease (100% LICA), presumed ischemic cardiomyopathy (45-50% May 2016; 30-35%, October 2017), LBBB, chronic systolic congestive heart failure, CKD IV, DM, bilateral lower extremity lymph edema, moderate tricuspid and mitral regurgitation, and her coronary artery disease (100% PDA, July 2007). Dr. Lund is her primary county assessor. Her heart failure is typically well managed. Her last hospitalization was back in 2015. She follows with Dr. Lund regularly and was last evaluated in August 2018. She was to have repeat echocardiogram at that time to determine if she was a candidate for an ICD. She opted not to have the study because she was having anxiety over the possibility of a defibrillator. She is currently admitted for acute exacerbation of systolic congestive heart failure. Patient reports that over the past 3 weeks she has noticed progressive dyspnea on exertion. She lives at [facility] for the past 3 years. She is typically able to ambulate with a walker from her room to the dining room without stopping. Over the course of three weeks this has become more difficult to the point where she was required to stop and rest three times on her way down the [place]. She eventually noticed purple discoloration of her lips but did not think anything of it until the staff mentioned something and checked her vitals and found her to be hypoxic. She was the transported to the ED. She denies any worsening edema but has a history of lymphedema and recurrent cellulitis. She denies orthopnea or PND. She does wake up approximately 5 times a night to go to the bathroom. She does note significant shortness of breath upon returning to bed but this is not waking her from sleep. She denies abdominal distention. She typically takes Lasix 40 mg daily with an extra 40 mg as needed for weight gain. Her primary care provider, Rocio Davis PA-C, typically manages her diuretics. She only weights herself every Sunday at the [facility]. She does not recall what her typical baseline weight is. It is documented in the outpatient record to be 261 lb. She admittedly does not follow a low sodium diet. She states she "eats whatever they give her" and that there are not special diet options at her facility. She does not use table salt or dine out regularly. She denies any recent dietary indiscretion or changes in recent weeks. She drinks 3 large cups of iced tea per day and estimates she is typically under 1500 ml. She reports an episode of diarrhea 3 days ago. She denies any loose stools since her admission. She admits to intermittent palpitations, mostly when she goes into atrial fibrillation. She denies chest pain, dizziness, lightheadedness, cough, wheezing, fever, chills, or signs of bleeding including melena or hematuria. Allergies Allergy/AdvReac Type Severity Reaction Status Date / Time adhesive AdvReac Intermediate RASH Verified 01/09/19 17:48 morphine AdvReac Intermediate VOMITING Verified 06/12/17 07:44 Home Medications Home Medications Medication Instructions Recorded Confirmed Type levothyroxine 50 mcg capsule 50 mcg PO DAILY #30 cap 10/24/18 01/09/19 Rx furosemide 40 mg tablet 40 mg PO DAILY #30 tab 12/17/18 01/09/19 Rx acetaminophen [Tylenol Arthritis 650 mg PO Q12H 01/09/19 01/09/19 History Pain] amoxicillin 500 mg PO DIRECTED 01/09/19 01/09/19 History apixaban [Eliquis] 2.5 mg PO TID 01/09/19 01/09/19 History cetirizine 5 mg PO DAILY 01/09/19 01/09/19 History diphenoxylate-atropine 1 tab PO QID PRN 01/09/19 01/09/19 History docusate sodium [Doc-Q-Lace] 100 mg PO DAILY PRN 01/09/19 01/09/19 History lisinopril 5 mg PO DAILY 01/09/19 01/09/19 History loratadine 10 mg PO DAILY PRN 01/09/19 01/09/19 History lorazepam 1 mg PO DAILY PRN 01/09/19 01/09/19 History lorazepam 1 mg PO HS 01/09/19 01/09/19 History multivitamin 2 tab PO DAILY 01/09/19 01/09/19 History [id number] 1 tab PO DAILY 01/09/19 01/09/19 History [Vision Plus Lutein] ondansetron 4 mg PO Q8H PRN 01/09/19 01/09/19 History polyethylene glycol 3350 17 g PO DAILY PRN 01/09/19 01/09/19 History ranitidine HCl 150 mg PO BID 01/09/19 01/09/19 History sertraline 75 mg PO DAILY 01/09/19 01/09/19 History tramadol 50 mg PO DAILY PRN 01/09/19 01/09/19 History tramadol 50 mg PO HS 01/09/19 01/09/19 History Patient History Medical History Choledocholithiasis (Acute 05/02/13) CKD (chronic kidney disease) (Chronic) Elevated LFTs (Acute) Dyslipidemia (Chronic) Cardiomyopathy (Chronic) "echo - eF - 40- 45% (09/19/2012)" Lymphedema (Chronic) DM w/o complication type II (Chronic) Atrial fibrillation (Chronic) DVT (deep venous thrombosis) (Resolved) PE (pulmonary embolism) (Resolved) TIA (transient ischemic attack) (Resolved) "november 2012" Cholelithiases (Acute) UTI (urinary tract infection) Surgical History S/P TKR (total knee replacement) (Resolved) "BILATERAL" Hip joint replacement status (Resolved) "RIGHT" H/O cardiac catheterization (Resolved) "IN 2005 - as per patient - this was normal" Family History Other Cancer Family history non-contributory Social History Preferred Language: Faroese Communication Ability: Effective Beliefs That Will Affect Care: None marital status: / Current Living Situation: Personal Care Facility current occupational status: retired Other Information That Helps Us Care for You: No Feels Safe at Home: Yes Safety Concerns: Feels Safe At This Time Smoking Status: Never smoker Hx Alcohol Use: No Hx Substance Use: No Physical Activity Frequency: Does not Exercise Review of Systems Review of Systems: As noted in HPI. All other ROS are reviewed and otherwise negative at this time. Physical Exam Physical Exam: Constitutional: Alert, oriented, in no acute distress HEENT: Head is atraumatic and normocephalic. EOMs intact. Sclera anicteric. Face is symmetric. No perioral cyanosis. Mucous membranes moist. Neck: Supple, JVD noted 2/3 to the mandible at 45 degrees. + HJR Pulmonary: Normal respiratory effort, crackles noted at the left base, otherwise clear to ausculation. Cardiac: Regular rate and rhythm. Normal S1 and S2, no gallops, no rubs, no m urmurs Extremities: 2+ radial pulses bilaterally. 2+ posterior tibialis pulses bilaterally. Trace-1+ pitting edema at the ankles. No cyanosis or clubbing. Chronic lymphedema BLE. Abdomen: Normal bowel sounds, soft, non-tender, no abdominal mass palpated. Obese Skin: Normal skin color, turgor, and chronic venous stasis changes without evidence of cellulitis, no rash, no skin lesions Neurological: Patient is awake, alert, and oriented. Pleasant and cooperative. Answers questions appropriately. Speech is clear. Normal movement in all 4 extremities.. Results & Data Vital Signs (Past 12 Hours) Vital Signs Temp Pulse Resp BP BP Pulse Ox 01/10/19 11:46 98.1 F 65 20 109/55 L 95 01/10/19 07:59 97.9 F 57 L 18 124/43 L 96 01/10/19 07:53 98.2 F 106 H 20 106/73 93 01/10/19 03:54 97.5 F L 52 L 16 127/64 98
--- NOTE | 2019-01-10 15:22 | Cardiology Consultation ---
Date of Consultation January 10, 2019 Assessment & Plan (1) Acute on chronic systolic (congestive) heart failure: Patient remains hypervolemic at this time. She has had an excellent response to Lasix 40 mg IV and is negative 3 L in 24 hours. She also had Metolazone 5 mg this morning. Continue diuresis with a goal of 2-3 L per day. Continue to monitor kidney function and electrolytes (baseline Cr 1.9-2.2). Recommend daily standing weights. Continue heart healthy/low sodium diet, less than 2,000 mg daily. Continue fluid restriction, less than 1500 ml/day. Strict I&Os. (2) CKD (chronic kidney disease), stage IV: Stable. Continue to monitor daily. Recommend outpatient nephrology evaluation per hospitalist. (3) Hyperkalemia: Continue to monitor. Will hopefully self-correct with aggressive diuresis. (4) Cardiomyopathy: Patient has a long standing history of presumed ischemic cardiomyopathy. Repeat echocardiogram demonstrates progress decline in her left ventricular systolic function. EF now 25-30%. Could be a contributing factor to her current decompensation. She underwent a cardiac catheterization in July 2007 which revealed a totally obstructed right-sided PDA. She was noted to have a codominant system at that time. The patient does not experience typical exertional angina. She has been Lisinopril 5 mg daily and Carvedilol 25 mg BID. Her Carvedilol is not currently ordered, is not on her current home medication list but there is no documentation of it being discontinued? Patient is reportedly taking it as far as she knows. Confirmed with [employer] that as of yesterday she was receiving it. Recommend restarting it with hold parameters for rate <55. Consider converting Lisinopril to Entresto pending stable kidney function. (5) Atrial fibrillation: Patient has paroxysmal atrial fibrillation. She state she is aware of when she goes into a-fib. She has been in normal sinus since her admission with rates in the 50s and 60s. Continue Eliquis for stroke risk reduction. (6) Obesity: (7) Left bundle branch block (LBBB): May be a contributing factor to her volume status. Could be considered for biventricular ICD. (8) CAD (coronary artery disease): She underwent a cardiac catheterization in July 2007 which revealed a totally obstructed right-sided PDA. She was noted to have a codominant system at that time. She currently denies any anginal symptoms. Continue medical therapy. Disposition: Will continue to follow during hospitalization. Will enroll in CHF program. Anticipate close outpatient follow up within 7 days of discharge. Plan was discussed with Dr. Lopez Supervising Physician Co-Signing Physician Notes Patient was seen and examined. Agree with above with following additions: She presented with Progressively worsening dyspnea with exertion. She denies angina. With diuresis, her breathing has improved. She remains on supplemental oxygen. She has had orthopnea. She has not yet ambulated much while hospitalized. At the time of my evaluation, her daughter, Maida, and Grandson were present at the bedside. Exam was notable for: General: No acute distress. Alert. Neck: Elevated JVD. Cardiac: Regular. No murmur. Lungs: Clear to auscultation bilaterally. Extremities: 1+ bilateral lower extremity edema. No cyanosis. Echo report, ECG, telemetry personally reviewed. ASSESSMENT/PLAN: 1. Acute on chronic systolic CHF: She is hypervolemic. Continue diuresis. Would re-dose intravenous diuretic therapy tomorrow. We discussed importance of a low-sodium diet however her diet is rather fixed at her facility. Continue low-sodium diet here, strict I&Os, and daily weights. 2. Cardiomyopathy: Nonischemic cardiomyopathy per records. Continue carvedilol 25 mg twice daily. We initially discussed titrating lisinopril verses Entresto in place of lisinopril. However, she has been hyperkalemic often when reviewing old labs and also on this presentation. Therefore, would not switch to Entresto at this time and would not titrate lisinopril. If she becomes hypervolemic again with more aggressive diuretic, may have to discontinue lisinopril altogether. We discussed ICD for primary prevention. Given LBBB morphology and EF less than 30%, would consider EP evaluation for possible biventricular device, although QRS is less than 150 milliseconds. This may offer her benefit, if she qualifies. She was asked to consider ICD with her family. 3. Hyperkalemia:Continue to monitor. May need to reduce or discontinue KEITH- inhibitor as discussed above. 4. Paroxysmal atrial fibrillation: Currently in sinus rhythm. On anticoagulation for stroke risk reduction. 5. CAD: No angina. Reported on cardiac catheterization from July of 2007 that she has occluded right-sided PDA but also has a codominant system. Continue beta-guera. Consider high-intensity statin therapy. 6. Disposition: Plan of care discussed with Dr. Elias of the primary hospitalist service. Cardiology will continue to follow. Enroll in Heart failure program on discharge. Follow-up with primary laboratory sampler as well, Dr. Lund. Thank you for allowing me to participate in the care of your patient. Please call for any other questions or concerns. Sincerely, Efraín Lopez M.D. History of Present Illness Attending Physician: Alexey Elias DO Mrs. Aviles is an 78 year old female with history of hypertension, hypercholesterolemia, paroxysmal atrial fibrillation, peripheral vascular disease (RLE bypass, October 2010), cerebral vascular disease (100% LICA), presumed ischemic cardiomyopathy (45-50% May 2016; 30-35%, October 2017), LBBB, chronic systolic congestive heart failure, CKD IV, DM, bilateral lower extremity lymphedema, moderate tricuspid and mitral regurgitation, and her coronary artery disease (100% PDA, July 2007). Dr. Lund is her primary laboratory sampler. Her heart failure is typically well managed. Her last hospitalization was back in 2015. She follows with Dr. Lund regularly and was last evaluated in August 2018. She was to have repeat echocardiogram at that time to determine if she was a candidate for an ICD. She opted not to have the study because she was having anxiety over the possibility of a defibrillator. She is currently admitted for acute exacerbation of systolic congestive heart failure. Patient reports that over the past 3 weeks she has noticed progressive dyspnea on exertion. The patient resides at [facility] for the past 3 years. She is typically able to ambulate with a walker from her room to the dining room without stopping. Over the course of three weeks this has become more difficult to the point where she was required to stop and rest three times on her way down the [place]. She eventually noticed purple discoloration of her lips but did not think anything of it until the staff mentioned something and checked her vitals and found her to be hypoxic. She was the transported to the ED. EMS initiated supplemental O2 at 2L. She was mildly hyperkalemic at 5.5. Pro-BNP was markedly elevated at >00795. Limited beside echo was consistent with worsening left ventricular systolic function. Chest xray demonstrated cardiomegaly without evidence of congestive failure and bilateral linear opacities. EKG was sinus with LBBB, 1st degree AV block, and no ischemic changes. She was given Lasix 40 mg IV and was admitted for further evaluation and treatment. She is currently in bed and appears comfortable. She notes improvement in her breathing. She is responding well to diuretics and is net negative 2.8 L overnight. She denies any worsening edema in recent weeks but has a history of lymphedema and recurrent cellulitis. She denies orthopnea or PND. She does wake up approximately 5 times a night to go to the bathroom at home. She does note significant shortness of breath upon returning to bed but this is not waking her from sleep. She denies abdominal distention. She typically takes Lasix 40 mg daily with an extra 40 mg as needed for weight gain. Her primary care provider, Rocio Davis PA-C, typically manages her diuretics. [facility] She does not recall what her typical baseline weight is. It is documented in the outpatient record to be 261 lb. She admittedly does not follow a low sodium diet. She states she "eats whatever they give her" and that there are not special diet options at her facility. She does not use table salt or dine out regularly. She denies any recent dietary indiscretion or changes in recent weeks. She drinks 3 large cups of iced tea per day and estimates she is typically under 1500 ml. She reports an episode of diarrhea 3 days ago. She denies any loose stools since her admission. She admits to intermittent palpitations, mostly when she goes into atrial fibrillation. She denies chest pain, dizziness, lightheadedness, cough, wheezing, fever, chills, or signs of bleeding including melena or hematuria. FamHx: She denies any family history of heart disease. Mother, father, sisters x 2 have history of cancer (unknown type). SocialHx: Patient is originally from the [facility] but now lives at [facility]. She is . She has 5 children who all live local and 18 grandchildren. She denies any previous tobacco or alcohol use. 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 Allergies Allergy/AdvReac Type Severity Reaction Status Date / Time adhesive AdvReac Intermediate RASH Verified 01/09/19 17:48 morphine AdvReac Intermediate VOMITING Verified 06/12/17 07:44 Home Medications Home Medications Medication Instructions Recorded Confirmed Type levothyroxine 50 mcg capsule 50 mcg PO DAILY #30 cap 10/24/18 01/09/19 Rx furosemide 40 mg tablet 40 mg PO DAILY #30 tab 12/17/18 01/09/19 Rx acetaminophen [Tylenol Arthritis 650 mg PO Q12H 01/09/19 01/09/19 History Pain] amoxicillin 500 mg PO DIRECTED 01/09/19 01/09/19 History apixaban [Eliquis] 2.5 mg PO TID 01/09/19 01/09/19 History cetirizine 5 mg PO DAILY 01/09/19 01/09/19 History diphenoxylate-atropine 1 tab PO QID PRN 01/09/19 01/09/19 History docusate sodium [Doc-Q-Lace] 100 mg PO DAILY PRN 01/09/19 01/09/19 History lisinopril 5 mg PO DAILY 01/09/19 01/09/19 History loratadine 10 mg PO DAILY PRN 01/09/19 01/09/19 History lorazepam 1 mg PO DAILY PRN 01/09/19 01/09/19 History lorazepam 1 mg PO HS 01/09/19 01/09/19 History multivitamin 2 tab PO DAILY 01/09/19 01/09/19 History spcqwuoeuzhc-tsabmfzs-elwlvk 1 tab PO DAILY 01/09/19 01/09/19 History [Vision Plus Lutein] ondansetron 4 mg PO Q8H PRN 01/09/19 01/09/19 History polyethylene glycol 3350 17 g PO DAILY PRN 01/09/19 01/09/19 History ranitidine HCl 150 mg PO BID 01/09/19 01/09/19 History sertraline 75 mg PO DAILY 01/09/19 01/09/19 History tramadol 50 mg PO DAILY PRN 01/09/19 01/09/19 History tramadol 50 mg PO HS 01/09/19 01/09/19 History Patient History Medical History Choledocholithiasis (Acute 05/02/13) CKD (chronic kidney disease) (Chronic) Elevated LFTs (Acute) Dyslipidemia (Chronic) Cardiomyopathy (Chronic) "echo - eF - 40- 45% (09/19/2012)" Lymphedema (Chronic) DM w/o complication type II (Chronic) Atrial fibrillation (Chronic) DVT (deep venous thrombosis) (Resolved) PE (pulmonary embolism) (Resolved) TIA (transient ischemic attack) (Resolved) "november 2012" Cholelithiases (Acute) UTI (urinary tract infection) Surgical History S/P TKR (total knee replacement) (Resolved) "BILATERAL" Hip joint replacement status (Resolved) "RIGHT" H/O cardiac catheterization (Resolved) "IN 2005 - as per patient - this was normal" Family History Other Cancer Family history non-contributory Social History Preferred Language: Japanese Communication Ability: Effective Beliefs That Will Affect Care: None marital status: / Current Living Situation: Personal Care Facility current occupational status: retired Other Information That Helps Us Care for You: No Feels Safe at Home: Yes Safety Concerns: Feels Safe At This Time Smoking Status: Never smoker Hx Alcohol Use: No Hx Substance Use: No Physical Activity Frequency: Does not Exercise Review of Systems Review of Systems: As noted in HPI. All other ROS are reviewed and otherwise negative at this time. Physical Exam Physical Exam: Constitutional: Alert, oriented, in no acute distress HEENT: Head is atraumatic and normocephalic. EOMs intact. Sclera anicteric. Face is symmetric. No perioral cyanosis. Mucous membranes moist. Neck: Supple, JVD noted 2/3 to the mandible at 45 degrees. + HJR Pulmonary: Normal respiratory effort, crackles noted at the left base, otherwise clear to ausculation. Cardiac: Regular rate and rhythm. Normal S1 and S2, no gallops, no rubs, no murmurs Extremities: 2+ radial pulses bilaterally. 2+ posterior tibialis pulses bilaterally. Trace-1+ pitting edema at the ankles. No cyanosis or clubbing. Chronic lymphedema BLE. Abdomen: Normal bowel sounds, soft, non-tender, no abdominal mass palpated. Obese Skin: Normal skin color, turgor, and chronic venous stasis changes without evidence of cellulitis, no rash, no skin lesions Neurological: Patient is awake, alert, and oriented. Pleasant and cooperative. Answers questions appropriately. Speech is clear. Normal movement in all 4 extremities.. Results & Data Vital Signs (Past 12 Hours) Vital Signs Temp Pulse Resp BP BP Pulse Ox 01/10/19 11:46 98.1 F 65 20 109/55 L 95 01/10/19 07:59 97.9 F 57 L 18 124/43 L 96 01/10/19 07:53 98.2 F 106 H 20 106/73 93 01/10/19 03:54 97.5 F L 52 L 16 127/64 98 Laboratory Results Laboratory Results - last 24 hr 01/09/19 01/09/19 01/10/19 20:50 20:50 06:18 WBC RBC Hgb Hct MCV MCH MCHC RDW Std Deviation RDW Coeff of Amalia Plt Count MPV Sodium 141 141 Potassium 5.1 5.2 H Chloride 115 H 114 H Carbon Dioxide 20 L 21 Anion Gap 7.0 6.0 BUN 38 H 39 H Creatinine 2.13 H 2.02 H Est Cr Clr Drug Dosing 28.5 27.9 Est GFR ( Amer) 24.7 26.3 Est GFR (Non-Af Amer) 21.3 22.7 BUN/Creatinine Ratio 18.0 19.1 Glucose 83 67 L Calcium 8.3 L 8.2 L Troponin I < 0.015 < 0.015 01/10/19 01/10/19 06:18 15:31 WBC 5.08 RBC 3.54 L Hgb 11.0 L Hct 34.8 L MCV 98.3 MCH 31.1 MCHC 31.6 L RDW Std Deviation 50.3 H RDW Coeff of Amalia 14.1 Plt Count 158 MPV 10.6 H Sodium 140 Potassium 4.8 Chloride 112 H Carbon Dioxide 22 Anion Gap 7.0 BUN 40 H Creatinine 2.08 H Est Cr Clr Drug Dosing 27.1 Est GFR ( Amer) 25.4 Est GFR (Non-Af Amer) 21.9 BUN/Creatinine Ratio 19.4 Glucose 92 Calcium 8.5 Troponin I Diagnostic Findings Telemetry personally reviewed: No arrhythmia. Echo 01/10/2019: Mildly dilated LV with severely reduced systolic function. EF 25-30%. Moderately dilated RV with mild dysfunction. Mild to moderate MR. Compared to 06/20/2016, LV function has declined. RV now dilated with mild dysfunction. 01/09/2019 personally reviewed: Sinus rhythm with first-degree AV block 62 bpm. LBBB morphology. Medications Administered Current Inpatient Medications Acetaminophen (Tylenol) 650 mg PO Q4H PRN PRN Reason: Pain or Fever Stop: 02/08/19 17:40 Apixaban (Eliquis) 2.5 mg PO BID MARY Stop: 02/08/19 20:59 Last Admin: 01/10/19 08:35 Dose: 2.5 mg Documented by: Carvedilol (Coreg) 25 mg PO BID MARY Stop: 02/09/19 20:59 Cetirizine HCl (Zyrtec) 5 mg PO DAILY MARY Stop: 02/09/19 08:59 Last Admin: 01/10/19 08:35 Dose: 5 mg Documented by: Hydralazine HCl (Hydralazine Hcl) 10 mg IV Q6 PRN PRN Reason: Blood Pressure - High Stop: 02/08/19 17:40 Furosemide 40 mg/ Syringe 4 mls @ 4 mls/min IV QAM [facility] Stop: 02/09/19 08:59 Last Admin: 01/10/19 08:34 Dose: 4 mls/min Documented by: Levothyroxine Sodium (Synthroid) 50 mcg PO DAILYBB [facility] Stop: 02/09/19 06:29 Last Admin: 01/10/19 06:07 Dose: 50 mcg Documented by: Lisinopril (Zestril) 5 mg PO DAILY MARY Stop: 02/09/19 08:59 Last Admin: 01/10/19 08:34 Dose: 5 mg Documented by: Lorazepam (Ativan) 1 mg PO HS [facility] Stop: 02/08/19 20:59 Last Admin: 01/09/19 21:08 Dose: 1 mg Documented by: Lorazepam (Ativan) 1 mg PO DAILY PRN PRN Reason: Anxiety Stop: 02/08/19 17:40 Metolazone (Zaroxolyn) 5 mg PO QAM [facility] Stop: 02/09/19 08:59 Last Admin: 01/10/19 08:35 Dose: 5 mg Documented by: Nystatin (Nystatin) 1 appln EXT BID [facility] Stop: 02/09/19 10:44 Last Admin: 01/10/19 12:49 Dose: 1 appln Documented by: Ondansetron HCl (Zofran) 4 mg IV Q6H PRN PRN Reason: Nausea Stop: 02/08/19 17:40 Sertraline HCl (Zoloft) 75 mg PO DAILY MARY Stop: 02/09/19 08:59 Last Admin: 01/10/19 08:35 Dose: 75 mg Documented by: Tramadol HCl (Ultram) 50 mg PO HS MARY Stop: 02/08/19 20:59 Last Admin: 01/09/19 21:08 Dose: 50 mg Documented by: Tramadol HCl (Ultram) 50 mg PO DAILY PRN PRN Reason: Pain Stop: 02/08/19 17:40 PG Care Time/CCT Total # of Minutes Spent Total Time Spent with Patient: Total time spent is greater than 50% in coordin ation of care (as documented) at patient's floor/unit and/or counseling patient:
[2019-01-10 16:10] LABS: BUN Creatinine Ratio 19.4 (10-20); Calcium 8.5 mg/dl (8.5-10.1); Creatinine Clr Calc Pharmacy 27.1 ml/min; Est GFR (African American) 25.4; Est GFR (Non-African American) 21.9; Potassium 4.8 mmol/L (3.5-5.1)
[2019-01-10] MEDS: LORazepam 1 MG TAB PO SCH (20:30)
[2019-01-10] MEDS: TRAMADOL HCL 50 MG TABLET PO SCH (20:33)
[2019-01-10] MEDS: CARVEDILOL 25 MG TAB PO SCH (20:33)
[2019-01-11] MEDS: LEVOTHYROXINE SODIUM 50 MCG TABLET PO SCH (05:38)
[2019-01-11 07:15] LABS: BUN Creatinine Ratio 20.2 (10-20); Blood Urea Nitrogen 38 mg/dl (7-18); Carbon Dioxide 23 mmol/L (21-32); Chloride 112 mmol/L (98-107); Creatinine Clr Calc Pharmacy 30.9 ml/min; Est GFR (African American) 28.4; Est GFR (Non-African American) 24.5; Glucose 83 mg/dl (70-99); Potassium 4.5 mmol/L (3.5-5.1); Sodium 143 mmol/L (136-145)
[2019-01-11 07:19] LABS: NT Pro B Type Natriuretic Pept > 35000 pg/ml (0-1800)
[2019-01-11] MEDS: CETIRIZINE HCL 10 MG TABLET PO SCH (08:06)
[2019-01-11] MEDS: CARVEDILOL 25 MG TAB PO SCH ×2 (08:06→20:13)
[2019-01-11] MEDS: APIXABAN 2.5 MG TAB PO SCH ×2 (08:06→20:12)
[2019-01-11] MEDS: SERTRALINE HCL 50 MG TABLET PO SCH (08:07)
[2019-01-11] MEDS: LISINOPRIL 5 MG TAB PO SCH (08:07)
[2019-01-11] MEDS: NYSTATIN CR 15 GM TUBE EXT SCH ×2 (08:08→20:15)
[2019-01-11] MEDS: FUROSEMIDE 40 MG in SYRINGE 0 ML IV SCH (08:41)
--- NOTE | 2019-01-11 09:32 | Hospitalist Progress Note ---
Date of Service January 11, 2019 Assessment & Plan (1) Acute on chronic systolic (congestive) heart failure: patient presents with symptoms of progressive orthopnea, dyspnea on exertion, worse over the past three weeks BNP markedly elevated, CXR without obvious pulmonary edema negative fluid balance for 6000mL thus far will give Lasix 40mg IV this morning and again 40mg IV this afternoon plan for Zaroxolyn and Lasix tomorrow AM echo done, mild worsening in EF at 25-30%, RV dilated with dysfunction continue daily weights (trending down), fluid restrict to 1500mL a day Cr is stable, actually down slightly at 1.9 (2) Hyperkalemia: improved to 4.5 today will monitor daily certainly will continue to improve with Lasix (3) Dyspnea on exertion: progressive over past 3 weeks she only gets her weight once a week on Fridays at [facility] due to heart failure improving slightly each day (4) CKD (chronic kidney disease), stage IV: Cr is at baseline, between 1.9 and 2.1 will monitor daily on Lasix based on GFR of 20's she would be stage IV recommend referral to Nephrology as outpatient daughter will reach out to Dr. Grant Cr stable at 1.9 today (5) Atrial fibrillation: chronic, on Eliquis HR is well controlled Coreg 25mg BID resumed (6) DM w/o complication type II: diet controlled (7) Lymphedema: chronic ongoing condition she reports no recent changes in leg swelling (8) Obesity: (9) Dyslipidemia: Subjective patient breathing better, less dyspnea on exertion today no chest pain or pressure, no cough, no fever she is eating well reviewed I/O, she is negative 6000mL for the admission Cr is stable, actually down a little at 1.9 from 2.0, BUN trending down a little as well K is 4.5 still on 2L NC, typically not on oxygen, tried to remove last night but she desaturated discussed at length with Dr. Lopez really no room to titrate up on Lisinopril because she is always borderline hyperkalemic cannot change to Entresto for the same reason her echo shows EF of 25-30% and she has a LBBB can consider dual chamber pacer, he d/w patient and her family, they will consider this I talked with patient's daughter Yolette over the phone, answered all questions discussed plan with senior process engineer of Systems Review of Systems: All systems reviewed & are unremarkable except as noted in HPI & below Constitutional: no fever, no fatigue and no weakness Respiratory: + dyspnea on exertion (better) Cardiovascular: + dyspnea on exertion, + orthopnea and + edema; no chest pain Gastrointestinal: no abdominal pain, no nausea, no vomiting, no constipation and no diarrhea/loose stools Physical Exam Constitutional: WD/WN, vitals as above + obese Eyes: PERRL, conjunctivae normal, anicteric sclerae ENMT: external ear and nose normal, oropharynx normal Neck: trachea midline, no thyromegaly Respiratory: normal respiratory effort, lungs clear to auscultation Cardiovascular: Rate/Rhythm: regular rate and + irregularly irregular Heart Sounds: normal S1 and normal S2; no murmur Vessels: no JVD Extremities: normal capillary refill and + edema (trace bilaterally) Gastrointestinal (Abdomen): normal bowel sounds, soft, nontender, no hepatosplenomegaly Musculoskeletal: no cyanosis or clubbing, extremities motor strength 5/5 Skin: no rashes, warm and dry + dry skin Neurologic: patellar DTR's 2+ bilat, sensation intact and PERRL, EOMI, accommodation nl, no face palsy, no dysarthria Psychiatric: A+Ox3, euthymic affect Lymphatic: no cervical or axillary lymphadenopathy Results & Data Vital Signs (Past 12 Hours) Vital Signs Temp Pulse Resp BP Pulse Ox 01/11/19 07:12 36.3 C L 61 19 127/69 95 01/11/19 03:42 36.7 C 56 L 17 128/54 L 93 01/10/19 23:24 36.6 C 61 20 128/57 L 95 Laboratory Results Laboratory Results - last 24 hr 01/10/19 01/11/19 15:31 06:18 Sodium 140 143 Potassium 4.8 4.5 Chloride 112 H 112 H Carbon Dioxide 22 23 Anion Gap 7.0 7.0 BUN 40 H 38 H Creatinine 2.08 H 1.90 H Est Cr Clr Drug Dosing 27.1 30.9 Est GFR ( Amer) 25.4 28.4 Est GFR (Non-Af Amer) 21.9 24.5 BUN/Creatinine Ratio 19.4 20.2 H Glucose 92 83 Calcium 8.5 8.0 L NT-Pro-B Natriuret Pep > 40842 H Diagnostic Findings ECHOCARDIOGRAM: EF is 25-30%, has declined slightly compared to prior echo, now the RV is dilated with mild dysfunction, mild MR Medications Administered Current Inpatient Medications Acetaminophen (Tylenol) 650 mg PO Q4H PRN PRN Reason: Pain or Fever Stop: 02/08/19 17:40 Apixaban (Eliquis) 2.5 mg PO BID MARY Stop: 02/08/19 20:59 Last Admin: 01/11/19 08:06 Dose: 2.5 mg Documented by: Carvedilol (Coreg) 25 mg PO BID MARY Stop: 02/09/19 20:59 Last Admin: 01/11/19 08:06 Dose: 25 mg Documented by: Cetirizine HCl (Zyrtec) 5 mg PO DAILY MARY Stop: 02/09/19 08:59 Last Admin: 01/11/19 08:06 Dose: 5 mg Documented by: Hydralazine HCl (Hydralazine Hcl) 10 mg IV Q6 PRN PRN Reason: Blood Pressure - High Stop: 02/08/19 17:40 Furosemide 40 mg/ Syringe 4 mls @ 4 mls/min IV QAM [facility] Stop: 02/09/19 08:59 Last Admin: 01/11/19 08:41 Dose: 4 mls/min Documented by: Furosemide 40 mg/ Syringe 4 mls @ 4 mls/min IV ONE ONE Stop: 01/11/19 15:01 Levothyroxine Sodium (Synthroid) 50 mcg PO DAILYBB [facility] Stop: 02/09/19 06:29 Last Admin: 01/11/19 05:38 Dose: 50 mcg Documented by: Lisinopril (Zestril) 5 mg PO DAILY MARY Stop: 02/09/19 08:59 Last Admin: 01/11/19 08:07 Dose: 5 mg Documented by: Lorazepam (Ativan) 1 mg PO HS MARY Stop: 02/08/19 20:59 Last Admin: 01/10/19 20:30 Dose: 1 mg Documented by: Lorazepam (Ativan) 1 mg PO DAILY PRN PRN Reason: Anxiety Stop: 02/08/19 17:40 Metolazone (Zaroxolyn) 5 mg PO QAM [facility] Stop: 02/09/19 08:59 Last Admin: 01/10/19 08:35 Dose: 5 mg Documented by: Nystatin (Nystatin) 1 appln EXT BID MARY Stop: 02/09/19 10:44 Last Admin: 01/11/19 08:08 Dose: 1 appln Documented by: Ondansetron HCl (Zofran) 4 mg IV Q6H PRN PRN Reason: Nausea Stop: 02/08/19 17:40 Sertraline HCl (Zoloft) 75 mg PO DAILY [facility] Stop: 02/09/19 08:59 Last Admin: 01/11/19 08:07 Dose: 75 mg Documented by: Tramadol HCl (Ultram) 50 mg PO HS [facility] Stop: 02/08/19 20:59 Last Admin: 01/10/19 20:33 Dose: 50 mg Documented by: Tramadol HCl (Ultram) 50 mg PO DAILY PRN PRN Reason: Pain Stop: 02/08/19 17:40 PG Care Time/CCT Total # of Minutes Spent Total Time Spent with Patient: Total time spent is greater than 50% in coordination of care (as documented) at patient's floor/unit and/or counseling patient:
[2019-01-11] MEDS: MICONAZOLE NITRATE POWDER 43 GM EXT PRN ×2 (11:11→20:13)
--- NOTE | 2019-01-11 12:25 | Cardiology Progress Note ---
Date of Service January 11, 2019 Assessment & Plan (1) Acute on chronic systolic (congestive) heart failure: Volume status has improved but she remains hypervolemic. Agree with further diuretic therapy. Would try to maintain at least 1 L negative for this 24 hours. Low-sodium diet. Check daily weights and strict I&Os. (2) Cardiomyopathy: Reported nonischemic cardiomyopathy. Titration of KEITH-inhibitor or Entresto complicated due to longstanding history of hyperkalemia. Currently potassium is normal however this is with more aggressive diuretic therapy. Therefore, not likely able to further titrate her medications. For primary prevention, she qualifies for ICD. At further discussion today with her daughter, Maida, who plans on discussing this further with her mother later today. We discussed potentially meeting with electrophysiology on Sunday if she remains hospitalized at that time so that they can have a further discussion about ICD. Given LBBB morphology (however QRS less than 150), perhaps biventricular device would be acceptable. If so, it may help improve her LV systolic function. (3) Atrial fibrillation: Paroxysmal atrial fibrillation. She apparently has been symptomatic in the past with a arrhythmia. Continue anticoagulation for stroke risk reduction. Sinus rhythm currently. On beta-guera. (4) CAD (coronary artery disease): She underwent a cardiac catheterization in July 2007 which revealed a totally obstructed right-sided PDA. She was noted to have a codominant system at that time. No angina. Continue beta-guera. Consider high-intensity statin therapy. (5) CKD (chronic kidney disease), stage IV: Monitor with diuresis. (6) Hyperkalemia: Improved following more aggressive diuretic therapy. Hyperkalemia however appears to be a chronic issue. Disposition: Agree with continued intravenous diuretic therapy. On discharge, follow-up with heart failure program and her primary bottle gauger, Dr. Lund. Will continue to follow. Subjective Breathing much improved but not yet back to baseline. She denies chest pain, syncope, near-syncope, palpitations, or bleeding such as melena, hematochezia, or hematuria. She was alone in her hospital room but she was talking to her daughter, Maida, on the phone and we (Karly and Luigi) did discuss her care via telephone while at the bedside. Review of systems: As above. Physical Exam Physical Exam: Gen.: No acute distress. Alert and oriented. HEENT: Anicteric sclera. Neck: Mildly elevated JVD. Cardiac: Regular. Normal S1-S2. No murmurs, rubs, or gallops. Pulmonary: Clear to auscultation bilaterally without wheezes, rales, or rhonchi. Abdomen: Soft, nontender, nondistended, with normoactive bowel sounds. No bruits noted. Extremities: 1+ bilateral lower extremity edema. No cyanosis. Psychiatric: Affect appears appropriate. Results & Data Vital Signs (Past 12 Hours) Vital Signs Temp Pulse Resp BP Pulse Ox 01/11/19 11:52 36.8 C 55 L 20 123/60 98 01/11/19 07:12 36.3 C L 61 19 127/69 95 01/11/19 03:42 36.7 C 56 L 17 128/54 L 93 Intake & Output 01/09/19 01/10/19 01/11/19 01/12/19 06:59 06:59 06:59 06:59 Intake Total 725 / 725 Output Total 2800 / 2800 2975 / 2975 950 / 950 Balance -2800 / -2800 -2250 / -2250 -950 / -950 Weight 109.7 kg 118.1 kg Laboratory Results Laboratory Results - last 24 hr 01/10/19 01/11/19 15:31 06:18 Sodium 140 143 Potassium 4.8 4.5 Chloride 112 H 112 H Carbon Dioxide 22 23 Anion Gap 7.0 7.0 BUN 40 H 38 H Creatinine 2.08 H 1.90 H Est Cr Clr Drug Dosing 27.1 30.9 Est GFR ( Amer) 25.4 28.4 Est GFR (Non-Af Amer) 21.9 24.5 BUN/Creatinine Ratio 19.4 20.2 H Glucose 92 83 Calcium 8.5 8.0 L NT-Pro-B Natriuret Pep > 60386 H Diagnostic Findings Telemetry personally reviewed: Sinus rhythm. Medications Administered Current Inpatient Medications Acetaminophen (Tylenol) 650 mg PO Q4H PRN PRN Reason: Pain or Fever Stop: 02/08/19 17:40 Apixaban (Eliquis) 2.5 mg PO BID [facility] Stop: 02/08/19 20:59 Last Admin: 01/11/19 08:06 Dose: 2.5 mg Documented by: Carvedilol (Coreg) 25 mg PO BID [facility] Stop: 02/09/19 20:59 Last Admin: 01/11/19 08:06 Dose: 25 mg Documented by: Cetirizine HCl (Zyrtec) 5 mg PO DAILY [facility] Stop: 02/09/19 08:59 Last Admin: 01/11/19 08:06 Dose: 5 mg Documented by: Hydralazine HCl (Hydralazine Hcl) 10 mg IV Q6 PRN PRN Reason: Blood Pressure - High Stop: 02/08/19 17:40 Furosemide 40 mg/ Syringe 4 mls @ 4 mls/min IV QAM [facility] Stop: 02/09/19 08:59 Last Admin: 01/11/19 08:41 Dose: 4 mls/min Documented by: Furosemide 40 mg/ Syringe 4 mls @ 4 mls/min IV 1500 ONE Stop: 01/11/19 15:01 Levothyroxine Sodium (Synthroid) 50 mcg PO DAILYBB [facility] Stop: 02/09/19 06:29 Last Admin: 01/11/19 05:38 Dose: 50 mcg Documented by: Lisinopril (Zestril) 5 mg PO DAILY [facility] Stop: 02/09/19 08:59 Last Admin: 01/11/19 08:07 Dose: 5 mg Documented by: Lorazepam (Ativan) 1 mg PO HS [facility] Stop: 02/08/19 20:59 Last Admin: 01/10/19 20:30 Dose: 1 mg Documented by: Lorazepam (Ativan) 1 mg PO DAILY PRN PRN Reason: Anxiety Stop: 02/08/19 17:40 Metolazone (Zaroxolyn) 5 mg PO QAM [facility] Stop: 02/09/19 08:59 Last Admin: 01/10/19 08:35 Dose: 5 mg Documented by: Miconazole Nitrate (Desenex) 1 appln EXT PRN PRN PRN Reason: Affected Skin Folds Stop: 02/10/19 09:42 Last Admin: 01/11/19 11:11 Dose: 1 appln Documented by: Nystatin (Nystatin) 1 appln EXT BID [facility] Stop: 02/09/19 10:44 Last Admin: 01/11/19 08:08 Dose: 1 appln Documented by: Ondansetron HCl (Zofran) 4 mg IV Q6H PRN PRN Reason: Nausea Stop: 02/08/19 17:40 Sertraline HCl (Zoloft) 75 mg PO DAILY [facility] Stop: 02/09/19 08:59 Last Admin: 01/11/19 08:07 Dose: 75 mg Documented by: Tramadol HCl (Ultram) 50 mg PO HS [facility] Stop: 02/08/19 20:59 Last Admin: 01/10/19 20:33 Dose: 50 mg Documented by: Tramadol HCl (Ultram) 50 mg PO DAILY PRN PRN Reason: Pain Stop: 02/08/19 17:40 PG Care Time/CCT Total # of Minutes Spent Total Time Spent with Patient: Total time spent is greater than 50% in coordination of care (as documented) at patient's floor/unit and/or counseling patient:
[2019-01-11] MEDS ORDERED: FUROSEMIDE 40 MG in SYRINGE 0 ML IV ONE (15:00)
[2019-01-11] MEDS: TRAMADOL HCL 50 MG TABLET PO SCH (20:12)
[2019-01-11] MEDS: LORazepam 1 MG TAB PO SCH (20:12)
[2019-01-12] MEDS: LEVOTHYROXINE SODIUM 50 MCG TABLET PO SCH (05:14)
[2019-01-12] MEDS: LISINOPRIL 5 MG TAB PO SCH (08:18)
[2019-01-12] MEDS: CETIRIZINE HCL 10 MG TABLET PO SCH (08:18)
[2019-01-12] MEDS: SERTRALINE HCL 50 MG TABLET PO SCH (08:24)
[2019-01-12] MEDS: TRAMADOL HCL 50 MG TABLET PO PRN (08:25)
[2019-01-12] MEDS: APIXABAN 2.5 MG TAB PO SCH (08:25)
[2019-01-12] MEDS: CARVEDILOL 25 MG TAB PO SCH ×2 (08:26→20:27)
[2019-01-12] MEDS: NYSTATIN CR 15 GM TUBE EXT SCH ×3 (08:27→20:28)
[2019-01-12] MEDS: FUROSEMIDE 40 MG in SYRINGE 0 ML IV SCH ×2 (08:36→17:26)
[2019-01-12 08:53] LABS: BUN Creatinine Ratio 19.5 (10-20); Calcium 8.2 mg/dl (8.5-10.1); Creatinine Clr Calc Pharmacy 28.6 ml/min; Est GFR (African American) 26.5; Est GFR (Non-African American) 22.9; Potassium 4.4 mmol/L (3.5-5.1)
--- NOTE | 2019-01-12 10:33 | Cardiology Progress Note ---
Date of Service January 12, 2019 Assessment & Plan (1) Acute on chronic systolic (congestive) heart failure: Her net fluid balance is negative approximately 10 L. She still remains hypervolemic but is improving on a daily basis . Continue Intravenous Lasix. Would try to maintain negative fluid balance of approximately 2 L per day as tolerated. Monitor renal function and potassium closely. Low-sodium diet. Check daily weights and strict I&Os. (2) Cardiomyopathy: Reported nonischemic cardiomyopathy. Titration of KEITH-inhibitor or Entresto complicated due to longstanding history of hyperkalemia. Currently potassium is normal however this is with more aggressive diuretic therapy. Therefore, not likely able to further titrate her medications. For primary prevention, she qualifies for ICD. Her daughters are requesting consultation with electrophysiology tomorrow to discuss ICD. Given LBBB morphology (however QRS less than 150), perhaps biventricular device would be acceptable. If so, it may help improve her LV systolic function. (3) Atrial fibrillation: Paroxysmal atrial fibrillation. She apparently has been symptomatic in the past with arrhythmia. Continue anticoagulation for stroke risk reduction. Sinus rhythm currently. On beta-guera. No recent symptoms in this regard. (4) CAD (coronary artery disease): She underwent a cardiac catheterization in July 2007 which revealed a totally obstructed right-sided PDA. She was noted to have a codominant system at that time. Continue beta-guera. Consider high-intensity statin therapy. No angina. (5) CKD (chronic kidney disease), stage IV: Monitor with diuresis. Renal function has been stable with diuresis. (6) Hyperkalemia: Improved following more aggressive diuretic therapy. Hyperkalemia however appears to be a chronic issue when on less aggressive diuretic regimen. Disposition: Agree with continued intravenous diuretic therapy. On discharge, follow-up with heart failure program and her primary angle roll operator, Dr. Lund. Cardiology will continue to follow with EP evaluation tomorrow. Subjective She reports that her breathing has improved since yesterday with continued diuresis. She still remains short of breath compared to baseline however. She was able to ambulate in the hallway however her oxygen saturation was reportedly in the 70s on room air when she returned to her room. She has chronic orthopnea. She denies chest pain, syncope, near-syncope, palpitations, or edema. She is interested in discussing possible ICD with electrophysiology tomorrow. Her daughters are present at the bedside. Review of systems: As above. Physical Exam Physical Exam: Gen.: No acute distress. Alert and oriented. HEENT: Anicteric sclera. Neck: Mildly elevated JVD, but improved from yesterday. Cardiac: Regular. Normal S1-S2. No murmurs, rubs, or gallops. Pulmonary: Clear to auscultation bilaterally without wheezes, rales, or rhonchi. Abdomen: Soft, nontender, nondistended, with normoactive bowel sounds. No bruits noted. Extremities: 1+ right lower extremity edema. Trace left lower extremity edema in dependent areas. No cyanosis. Psychiatric: Affect appears appropriate. Results & Data Vital Signs (Past 12 Hours) Vital Signs Temp Pulse Pulse Resp BP Pulse Ox 01/12/19 07:47 36.5 C 65 20 126/62 96 01/12/19 05:06 119/56 L 01/12/19 04:07 36.5 C 56 L 20 102/46 L 95 01/12/19 00:16 36.7 C 68 20 134/63 95 01/11/19 23:45 64 Intake & Output 01/10/19 01/11/19 01/12/19 01/13/19 06:59 06:59 06:59 06:59 Intake Total 725 / 725 1080 / 1080 Output Total 2800 / 2800 2975 / 2975 5990 / 5990 Balance -2800 / -2800 -2250 / -2250 -4910 / -4910 Weight 109.7 kg 113.9 kg Laboratory Results Laboratory Results - last 24 hr 01/12/19 08:28 Sodium 142 Potassium 4.4 Chloride 109 H Carbon Dioxide 26 Anion Gap 7.0 BUN 39 H Creatinine 2.01 H Est Cr Clr Drug Dosing 28.6 Est GFR ( Amer) 26.5 Est GFR (Non-Af Amer) 22.9 BUN/Creatinine Ratio 19.5 Glucose 126 H Calcium 8.2 L Diagnostic Findings telemetry personally reviewed: Sinus rhythm. Medications Administered Current Inpatient Medications Acetaminophen (Tylenol) 650 mg PO Q4H PRN PRN Reason: Pain or Fever Stop: 02/08/19 17:40 Apixaban (Eliquis) 2.5 mg PO BID [facility] Stop: 02/08/19 20:59 Last Admin: 01/12/19 08:25 Dose: 2.5 mg Documented by: Carvedilol (Coreg) 25 mg PO BID [facility] Stop: 02/09/19 20:59 Last Admin: 01/12/19 08:26 Dose: 25 mg Documented by: Cetirizine HCl (Zyrtec) 5 mg PO DAILY [facility] Stop: 02/09/19 08:59 Last Admin: 01/12/19 08:18 Dose: 5 mg Documented by: Hydralazine HCl (Hydralazine Hcl) 10 mg IV Q6 PRN PRN Reason: Blood Pressure - High Stop: 02/08/19 17:40 Furosemide 40 mg/ Syringe 4 mls @ 4 mls/min IV BID17 [facility] Stop: 02/11/19 08:59 Last Admin: 01/12/19 08:36 Dose: 4 mls/min Documented by: Levothyroxine Sodium (Synthroid) 50 mcg PO DAILYBB [facility] Stop: 02/09/19 06:29 Last Admin: 01/12/19 05:14 Dose: 50 mcg Documented by: Lisinopril (Zestril) 5 mg PO DAILY [facility] Stop: 02/09/19 08:59 Last Admin: 01/12/19 08:18 Dose: 5 mg Documented by: Lorazepam (Ativan) 1 mg PO HS [facility] Stop: 02/08/19 20:59 Last Admin: 01/11/19 20:12 Dose: 1 mg Documented by: Lorazepam (Ativan) 1 mg PO DAILY PRN PRN Reason: Anxiety Stop: 02/08/19 17:40 Metolazone (Zaroxolyn) 5 mg PO QAM [facility] Stop: 02/09/19 08:59 Last Admin: 01/10/19 08:35 Dose: 5 mg Documented by: Miconazole Nitrate (Desenex) 1 appln EXT PRN PRN PRN Reason: Affected Skin Folds Stop: 02/10/19 09:42 Last Admin: 01/11/19 11:11 Dose: 1 appln Documented by: Nystatin (Nystatin) 1 appln EXT BID [facility] Stop: 02/09/19 10:44 Last Admin: 01/12/19 08:27 Dose: Not Given Documented by: Ondansetron HCl (Zofran) 4 mg IV Q6H PRN PRN Reason: Nausea Stop: 02/08/19 17:40 Sertraline HCl (Zoloft) 75 mg PO DAILY [facility] Stop: 02/09/19 08:59 Last Admin: 01/12/19 08:24 Dose: 75 mg Documented by: Tramadol HCl (Ultram) 50 mg PO HS [facility] Stop: 02/08/19 20:59 Last Admin: 01/11/19 20:12 Dose: 50 mg Documented by: Tramadol HCl (Ultram) 50 mg PO DAILY PRN PRN Reason: Pain Stop: 02/08/19 17:40 Last Admin: 01/12/19 08:25 Dose: 50 mg Documented by: PG Care Time/CCT Total # of Minutes Spent Total Time Spent with Patient: Total time spent is greater than 50% in coordination of care (as documented) at patient's floor/unit and/or counseling patient:
--- NOTE | 2019-01-12 14:29 | Hospitalist Progress Note ---
Date of Service January 12, 2019 Assessment & Plan (1) Acute on chronic systolic (congestive) heart failure: patient presents with symptoms of progressive orthopnea, dyspnea on exertion, worse over the past three weeks BNP markedly elevated, CXR without obvious pulmonary edema negative fluid balance for 10,900mL thus far continue Lasix 40mg IV BID until diuresis slows down or Cr rises echo done this admission, mild worsening in EF at 25-30%, RV dilated with dysfunction continue daily weights (trending down), fluid restrict to 1500mL a day Cr is stable at 2.0, her baseline is 1.9-2.1 given her LBB and poor EF, Dr. Lopez is recommending EP referral for BV pacer and ICD patient agrees with this plan unsure if it will be done this hospitalization (2) Hyperkalemia: stable at 4.4 certainly will continue to improve with Lasix (3) Dyspnea on exertion: progressive over past 3 weeks she only gets her weight once a week on Fridays at [facility] due to heart failure much improved today (4) CKD (chronic kidney disease), stage IV: Cr is at baseline, between 1.9 and 2.1 will monitor daily on Lasix based on GFR of 20's she would be stage IV recommend referral to Nephrology as outpatient daughter will reach out to Dr. Grant Cr stable at 2.0 today (5) Atrial fibrillation: chronic, on Eliquis HR is well controlled Coreg 25mg BID resumed hold Eliquis starting this evening in case EP would like to place device while hospitalized (6) DM w/o complication type II: diet controlled (7) Lymphedema: chronic ongoing condition she reports no recent changes in leg swelling (8) Obesity: (9) Dyslipidemia: Subjective patient sitting up in chair, says she is feeling great she is breathing easier, she cannot believe how much weight she has lost discussed that she is negative 10 liters since admission reviewed labs, Cr holding at 2.0 today, was 1.9 yesterday, K is 4.4 she says that she discussed getting the BV pacer and ICD with family and she would like to proceed she would like Dr. Mujica to place it she is eating well, had a small BM today Review of Systems Review of Systems: All systems reviewed & are unremarkable except as noted in HPI & below Physical Exam Constitutional: WD/WN, vitals as above + obese Eyes: PERRL, conjunctivae normal, anicteric sclerae ENMT: external ear and nose normal, oropharynx normal Neck: trachea midline, no thyromegaly Respiratory: normal respiratory effort, lungs clear to auscultation Cardiovascular: Rate/Rhythm: regular rate and + irregularly irregular Heart Sounds: normal S1 and normal S2; no murmur Vessels: no JVD Extremities: normal capillary refill and + edema (trace bilaterally) Gastrointestinal (Abdomen): normal bowel sounds, soft, nontender, no hepatosplenomegaly Musculoskeletal: no cyanosis or clubbing, extremities motor strength 5/5 Skin: no rashes, warm and dry + dry skin Neurologic: patellar DTR's 2+ bilat, sensation intact and PERRL, EOMI, accommodation nl, no face palsy, no dysarthria Psychiatric: A+Ox3, euthymic affect Lymphatic: no cervical or axillary lymphadenopathy Results & Data Vital Signs (Past 12 Hours) Vital Signs Temp Pulse Pulse Resp BP Pulse Ox 01/12/19 12:35 56 L 01/12/19 12:27 36.7 C 64 20 105/47 L 96 01/12/19 07:47 36.5 C 65 20 126/62 96 01/12/19 05:06 119/56 L 01/12/19 04:07 36.5 C 56 L 20 102/46 L 95 Laboratory Results Laboratory Results - last 24 hr 01/12/19 08:28 Sodium 142 Potassium 4.4 Chloride 109 H Carbon Dioxide 26 Anion Gap 7.0 BUN 39 H Creatinine 2.01 H Est Cr Clr Drug Dosing 28.6 Est GFR ( Amer) 26.5 Est GFR (Non-Af Amer) 22.9 BUN/Creatinine Ratio 19.5 Glucose 126 H Calcium 8.2 L Medications Administered Current Inpatient Medications Acetaminophen (Tylenol) 650 mg PO Q4H PRN PRN Reason: Pain or Fever Stop: 02/08/19 17:40 Apixaban (Eliquis) 2.5 mg PO BID [facility] Stop: 02/08/19 20:59 Last Admin: 01/12/19 08:25 Dose: 2.5 mg Documented by: Carvedilol (Coreg) 25 mg PO BID [facility] Stop: 02/09/19 20:59 Last Admin: 01/12/19 08:26 Dose: 25 mg Documented by: Cetirizine HCl (Zyrtec) 5 mg PO DAILY [facility] Stop: 02/09/19 08:59 Last Admin: 01/12/19 08:18 Dose: 5 mg Documented by: Hydralazine HCl (Hydralazine Hcl) 10 mg IV Q6 PRN PRN Reason: Blood Pressure - High Stop: 02/08/19 17:40 Furosemide 40 mg/ Syringe 4 mls @ 4 mls/min IV BID17 [facility] Stop: 02/11/19 08:59 Last Admin: 01/12/19 08:36 Dose: 4 mls/min Documented by: Levothyroxine Sodium (Synthroid) 50 mcg PO DAILYBB [facility] Stop: 02/09/19 06:29 Last Admin: 01/12/19 05:14 Dose: 50 mcg Documented by: Lisinopril (Zestril) 5 mg PO DAILY [facility] Stop: 02/09/19 08:59 Last Admin: 01/12/19 08:18 Dose: 5 mg Documented by: Lorazepam (Ativan) 1 mg PO HS [facility] Stop: 02/08/19 20:59 Last Admin: 01/11/19 20:12 Dose: 1 mg Documented by: Lorazepam (Ativan) 1 mg PO DAILY PRN PRN Reason: Anxiety Stop: 02/08/19 17:40 Metolazone (Zaroxolyn) 5 mg PO QAM [facility] Stop: 02/09/19 08:59 Last Admin: 01/10/19 08:35 Dose: 5 mg Documented by: Miconazole Nitrate (Desenex) 1 appln EXT PRN PRN PRN Reason: Affected Skin Folds Stop: 02/10/19 09:42 Last Admin: 01/11/19 11:11 Dose: 1 appln Documented by: Nystatin (Nystatin) 1 appln EXT BID [facility] Stop: 02/09/19 10:44 Last Admin: 01/12/19 08:27 Dose: Not Given Documented by: Ondansetron HCl (Zofran) 4 mg IV Q6H PRN PRN Reason: Nausea Stop: 02/08/19 17:40 Sertraline HCl (Zoloft) 75 mg PO DAILY [facility] Stop: 02/09/19 08:59 Last Admin: 01/12/19 08:24 Dose: 75 mg Documented by: Tramadol HCl (Ultram) 50 mg PO HS [facility] Stop: 02/08/19 20:59 Last Admin: 01/11/19 20:12 Dose: 50 mg Documented by: Tramadol HCl (Ultram) 50 mg PO DAILY PRN PRN Reason: Pain Stop: 02/08/19 17:40 Last Admin: 01/12/19 08:25 Dose: 50 mg Documented by: PG Care Time/CCT Total # of Minutes Spent Total Time Spent with Patient: Total time spent is greater than 50% in coordination of care (as documented) at patient's floor/unit and/or counseling patient:
[2019-01-12] MEDS: LORazepam 1 MG TAB PO SCH (20:26)
[2019-01-12] MEDS: TRAMADOL HCL 50 MG TABLET PO SCH (20:26)
[2019-01-13] MEDS: LEVOTHYROXINE SODIUM 50 MCG TABLET PO SCH (05:31)
[2019-01-13 07:54] LABS: BUN Creatinine Ratio 20.9 (10-20); Calcium 8.6 mg/dl (8.5-10.1); Creatinine Clr Calc Pharmacy 28.3 ml/min; Est GFR (African American) 27.3; Est GFR (Non-African American) 23.6; Potassium 4.2 mmol/L (3.5-5.1)
[2019-01-13] MEDS: CARVEDILOL 25 MG TAB PO SCH ×2 (10:04→21:06)
[2019-01-13] MEDS: LISINOPRIL 5 MG TAB PO SCH (10:05)
[2019-01-13] MEDS: FUROSEMIDE 40 MG in SYRINGE 0 ML IV SCH ×2 (10:06→18:22)
[2019-01-13] MEDS: NYSTATIN CR 15 GM TUBE EXT SCH ×2 (10:06→21:07)
[2019-01-13] MEDS: SERTRALINE HCL 50 MG TABLET PO SCH (10:06)
[2019-01-13] MEDS: CETIRIZINE HCL 10 MG TABLET PO SCH (10:10)
[2019-01-13] MEDS: TRAMADOL HCL 50 MG TABLET PO PRN (11:14)
--- NOTE | 2019-01-13 16:04 | Cardiology Progress Note ---
Date of Service January 13, 2019 Assessment & Plan (1) Left bundle branch block (LBBB): She had a left bundle branch block pattern (although she had R waves in the precordial leads it was not a true complete left bundle) on admission, however on a repeat electrocardiogram today the QRS is just 120 ms with a similar pattern. Prior electrocardiograms have looks similar but with narrow or complexes. She may have had a gradual increase in QRS complex over the years but this point is borderline as to whether there would be any benefit from resynchronization therapy. Part of her wider complex on admission may have been hyperkalemia. I do not think biventricular pacing would offer much value in this situation although technically could be considered. (2) Hyperkalemia: She has had hyperkalemia both last fall and this admission, I think it is probably dietary as she has been taking in large amounts of melons and bananas. She is willing to not use those, her daughter is also going to check to see if she has potassium and her vitamin pills. We will need to watch her potassium closely. (3) Acute on chronic systolic (congestive) heart failure: She presented with progressive weight gain and edema consistent with systolic congestive heart failure. The immediate cause is not clear. She feels that she has not been drinking excessively, she tells me that when she takes her diuretic she goes to the bathroom a lot and for that reason does not like to take additional doses. She has lost a lot of weight with diuresis. We will need to watch this closely as an outpatient to try to prevent repeat fluid retention. I suspect it can be handled as an outpatient. (4) Atrial fibrillation: She has a history of atrial fibrillation but has not been in atrial fibrillation this admission, she does need to remain on anticoagulation. Currently she is on Eliquis 2.5 mg twice a day, based on weight we would choose a higher dose, based on renal function in the lower dose and her age is just borderline but technically lower dose is probably sufficient. (5) Cardiomyopathy: She has a cardiomyopathy which may be slightly progressive compared to prior recent measurements but she is not on optimal medical therapy. I discussed the use of Entresto with her and her daughter, the rate of hyperkalemia on Entresto was actually slightly less than on for losartan and their clinical trial so I do not think hyperkalemia is a reason not to use it. I am going to discontinue lisinopril today (she got today's dose) which would allow us to start Entresto tomorrow. Subjective I reviewed her history of cardiomyopathy and her symptoms with her, she tells me that she has become increasingly edematous and short of breath for about 3 weeks despite being very careful about salt and water intake. She does have a high dietary potassium I believe, I asked her about dietary sources and she was eating bananas she was also eating a lot of fresh melons, all of which contain potassium. She had a high potassium last year as well in the fall, likely for the same reason. She does not like to take higher doses of diuretic because it makes her urinate a lot but she tells me that she does not drink a lot of fluid to make up for high urine volumes. Here in the hospital she has lost a substantial amount of weight and a significant amount of edema and feels much better. Her daughter was under the impression that she was in "chronic atrial fibrillation", however is near as I can tell she is predominantly been in sinus rhythm. She has not had lightheadedness or dizziness, she has not had any symptoms to suggest arrhythmias. She is maintained on anticoagulation, currentl y Eliquis. On this admission she was identified as having left bundle branch block. Her ejection fraction has also dropped somewhat, perhaps 5 percentage points since last evaluation. Physical Exam Physical Exam: Constitutional: Alert, cooperative and in no distress. HEENT: Unremarkable Neck: No jugular venous distention, carotid pulses are normal and equal bilaterally without bruits. Pulmonary: Clear to auscultation bilaterally. Cardiac: Regular rhythm with no murmur, gallop or rub. Abdomen: Soft, nontender with normal bowel sounds. Extremities: Her legs are very large but she has +3 bilateral pretibial edema. Neurologic: No focal findings. Skin: No rash, ecchymoses or petechiae. Results & Data Vital Signs (Past 12 Hours) Vital Signs Temp Pulse Pulse Resp BP Pulse Ox 01/13/19 14:21 70 01/13/19 12:19 36.9 C 74 18 133/59 L 94 01/13/19 10:00 93/48 L 01/13/19 08:06 36.7 C 92 H 22 124/47 L 94 01/13/19 07:45 63 01/13/19 04:00 36.4 C L 63 16 98/47 L 93 Diagnostic Findings An electrocardiogram on January 09, 2019 shows sinus rhythm with first-degree AV block and an IVCD, possibly a left bundle branch block pattern (there are R waves in the precordial leads) with a QRS of 126 ms. I had another electrocardiogram done today January 13, 2019 and this shows sinus rhythm with first-degree AV block and a QRS duration of just 120 ms with a similar pattern to her prior electrocardiogram. An echocardiogram done January 10, 2019 shows a mildly dilated left ventricle with an ejection fraction of 25 to 30%. By measurements perhaps slightly reduced from her last echo in the office. PG Care Time/CCT Total # of Minutes Spent Total Time Spent with Patient: Total time spent is greater than 50% in coordination of care (as documented) at patient's floor/unit and/or counseling patient:
--- NOTE | 2019-01-13 17:02 | XRay Report ---
XR foot LT min 3V routine CLINICAL HISTORY: mid-foot pain; gout/CPPD? Pain COMPARISON: None. DISCUSSION: Severe degenerative changes throughout. This is particularly prominent at the first metat arsophalangeal joint. Mild hallux valgus configuration. Heel spur is present. Soft tissue vascular calcifications. There is moderate generalized periarticular osteopenia. Mild generalized soft tissue edema IMPRESSION: Severe degenerative changes throughout. Osteopenia. Soft tissue vascular calcification. H eel spur. The above report was generated using voice recognition software. It may contain grammatical, syntax or spelling errors. Electronically signed by: Georges Conway M.D. 01/13/2019 5:01 PM
--- NOTE | 2019-01-13 17:04 | XRay Report ---
XR ankle LT min 3V routine CLINICAL HISTORY: acute pain; gout? CPPD? Pain COMPARISON: None. DISCUSSION: Moderate generalized degenerative change. Osteopenia. Heel spur. Subtalar joint is intact . There is no evidence for soft tissue swelling. IMPRESSION: Moderate generalized degenerative changes. Osteopenia. No acute process. Heel spur. The above report was generated using voice recognition software. It may contain grammatical, syntax or spelling errors. Electronically signed by: Georges Conway M.D. 01/13/2019 5:02 PM
[2019-01-13] MEDS ORDERED: predniSONE 10 MG TABLET PO ONE (19:00)
--- NOTE | 2019-01-13 19:24 | Hospitalist Progress Note ---
Date of Service January 13, 2019 Assessment & Plan (1) Acute on chronic systolic (congestive) heart failure: improving nicely with diuresis. Cr remains stable; has lost 10+ liters while here. cont IV lasix. metolazone on hold for now. cont BB. resume KEITH if BP will allow. appreciate cardiology consult. at this time no plans for BiV pacer/ICD. of note - echo this admission w/ EF 25-30%. (2) Left foot pain: suspect gout. risk factors - CKD, thiazide diuretic usage. check left foot and ankle films; r/o bony abnormalities, CPPD changes, etc. check sed rate / uric acid. depending on results will likely treat with low-dose prednisone (10mg daily) for a few days. (3) CKD (chronic kidney disease), stage IV: creatinine stable, at baseline. repeat BMP am. (4) CAD (coronary artery disease): history of such. cardiac catheterization in July 2007 revealed an obstructed right-sided PDA. She was noted to have a codominant system at that time. troponins were negative x 3 at time of this hospitalization. (5) Atrial fibrillation: PAF. stable on telemetry. resume eliquis since patient will not be having any procedures. cont BB. (6) DM w/o complication type II: last A1c was 5.8% in September 2018. pre-DM. follow. (7) PE (pulmonary embolism): history of such. resume eliquis BID. (8) Obesity (BMI 30-39.9): BMI now 37.9 s/p copious diuresis. (9) Hypothyroidism: most recent TSH was compensated cont synthroid (10) DVT prophylaxis: resume eliquis PT, OT evals requested wean O2 off as tolerated family updated at bedside Subjective patient complains of difficulty placing weight on her left foot/ankle today. she woke up with the pain in the left foot/ankle. hurts to move the extremity. right foot/ankle are fine. denies dyspnea. tele stable overnight. still requiring O2. eating well. Review of Systems Constitutional: no fever, no chills, no fatigue and no anorexia Respiratory: no cough Cardiovascular: no chest pain Gastrointestinal: no abdominal pain, no constipation and no diarrhea/loose stools Physical Exam Constitutional: well developed, well nourished and + morbidly obese; no acute distress ENMT: external ear and nose normal, oropharynx normal Respiratory: no respiratory distress Auscultation: + rales (fine, bases only); no wheezes Cardiovascular: Rate/Rhythm: regular rate and regular rhythm Heart Sounds: normal S1, normal S2 and + murmur (1/6 LSB) Vessels: + JVD (mild), posterior tibial pulses present and dorsalis pedis pulses present Extremities: no edema Gastrointestinal (Abdomen): normal bowel sounds, soft, nontender, no hepatosplenomegaly Musculoskeletal: left ankle and left mid-foot exquisitely tender to touch; however, no warmth/swelling/redness of either location Skin: stasis changes b/l shins Psychiatric: A+Ox3, euthymic affect Results & Data Vital Signs (Past 12 Hours) Vital Signs Temp Pulse Pulse Resp BP Pulse Ox 01/13/19 15:47 37.0 C 69 18 149/69 H 93 01/13/19 14:21 70 01/13/19 12:19 36.9 C 74 18 133/59 L 94 01/13/19 10:00 93/48 L 01/13/19 08:06 36.7 C 92 H 22 124/47 L 94 01/13/19 07:45 63 Laboratory Results Laboratory Results - last 24 hr 01/13/19 01/13/19 01/13/19 06:40 06:40 06:40 ESR 30 H Sodium 142 Potassium 4.2 Chloride 107 Carbon Dioxide 27 Anion Gap 8.0 BUN 41 H Creatinine 1.96 H Est Cr Clr Drug Dosing 28.3 Est GFR ( Amer) 27.3 Est GFR (Non-Af Amer) 23.6 BUN/Creatinine Ratio 20.9 H Glucose 80 Uric Acid 9.7 H Calcium 8.6 PG Care Time/CCT Total # of Minutes Spent Total Time Spent with Patient: Total time spent is greater than 50% in coordination of care (as documented) at patient's floor/unit and/or counseling patient: (1) CAD (coronary artery disease) Coronary Disease-Associated Artery/Lesion type: [place] artery [place] vs. transplanted heart: [place] heart Associated angina: without angina Qualified Code(s): I25.10 - Atherosclerotic heart disease of [place] coronary artery without angina pectoris (2) Atrial fibrillation Atrial fibrillation type: paroxysmal Qualified Code(s): I48.0 - Paroxysmal atrial fibrillation (3) DM w/o complication type II Diabetes mellitus watermaster insulin use: without correction use Qualified Code(s): E11.9 - Type 2 diabetes mellitus without complications (4) PE (pulmonary embolism) Pulmonary embolism type: other Chronicity: unspecified Acute cor pulmonale presence: without acute cor pulmonale Qualified Code(s): I26.99 - Other pulmonary embolism without acute cor pulmonale (5) Hypothyroidism Hypothyroidism type: acquired Qualified Code(s): E03.9 - Hypothyroidism, unspecified
[2019-01-13] MEDS: TRAMADOL HCL 50 MG TABLET PO SCH (21:02)
[2019-01-13] MEDS: MICONAZOLE NITRATE POWDER 43 GM EXT PRN (21:03)
[2019-01-13] MEDS: LORazepam 1 MG TAB PO SCH (21:03)
[2019-01-14] MEDS: LEVOTHYROXINE SODIUM 50 MCG TABLET PO SCH (06:04)
[2019-01-14 07:06] LABS: BUN Creatinine Ratio 20.7 (10-20); Calcium 8.2 mg/dl (8.5-10.1); Creatinine Clr Calc Pharmacy 27.1 ml/min; Est GFR (African American) 25.6; Est GFR (Non-African American) 22.1; Magnesium 1.6 mg/dl (1.8-2.4); Potassium 4.4 mmol/L (3.5-5.1)
[2019-01-14] MEDS: CETIRIZINE HCL 10 MG TABLET PO SCH (08:31)
[2019-01-14] MEDS: SERTRALINE HCL 50 MG TABLET PO SCH (08:32)
[2019-01-14] MEDS: CARVEDILOL 25 MG TAB PO SCH ×2 (08:33→21:36)
[2019-01-14] MEDS: NYSTATIN CR 15 GM TUBE EXT SCH ×2 (08:34→21:37)
[2019-01-14] MEDS: FUROSEMIDE 40 MG in SYRINGE 0 ML IV SCH ×2 (08:34→16:40)
--- NOTE | 2019-01-14 09:11 | Cardiology Progress Note ---
Date of Service January 14, 2019 Assessment & Plan (1) Left bundle branch block (LBBB): She had a left bundle branch block pattern (although she had R waves in the precordial leads it was not a true complete left bundle) on admission, however on a repeat electrocardiogram January 13, 2019 the QRS was just 120 ms with a similar pattern. Prior electrocardiograms have looks similar but with narrower complexes. She may have had a gradual increase in QRS complex over the years but at this point it is borderline as to whether there would be any benefit from resynchronization therapy. Part of her wider complex on admission may have been hyperkalemia. I do not think biventricular pacing would offer much value in this situation although technically could be considered. (2) Hyperkalemia: She has had hyperkalemia both last fall and this admission, I think it is probably dietary as she has been taking in large amounts of melons and bananas. She is willing to not use those, her daughter is also going to check to see if she has potassium and her vitamin pills. We will need to watch her potassium closely. (3) Acute on chronic systolic (congestive) heart failure: She presented with progressive weight gain and edema consistent with systolic congestive heart failure. The immediate cause is not clear. She feels that she has not been drinking excessively, she tells me that when she takes her diuretic she goes to the bathroom a lot and for that reason does not like to take additional doses. She has lost a lot of weight with diuresis. We will need to watch this closely as an outpatient to try to prevent repeat fluid retention. I suspect it can be handled as an outpatient if she will agree to take additional diuretics when needed. (4) Atrial fibrillation: She has a history of atrial fibrillation but has not been in atrial fibrillation this admission, she does need to remain on anticoagulation. Currently she is on Eliquis 2.5 mg twice a day, based on weight we would choose a higher dose, based on renal function in the lower dose and her age is just borderline but technically the lower dose is probably sufficient. (5) Cardiomyopathy: She has a cardiomyopathy which may be slightly progressive compared to prior recent measurements but she is not on optimal medical therapy. I discussed the use of Entresto with her and her daughter, the rate of hyperkalemia on Entresto was actually slightly less than on for valsartan in their clinical trial so I do not think hyperkalemia is a reason not to use it. I discontinued lisinopril after her morning dose yesterday, therefore we should be able to give Entresto this evening. I did order it at the middle dose, although her creatinine is elevated she tolerated the lisinopril and hopefully this will not affect renal function or potassium. Subjective She is doing well symptomatically from the cardiovascular standpoint but now tells me she has gout and is having foot pain. No palpitations, no chest discomfort. Her breathing has improved. Physical Exam Physical Exam: Constitutional: Alert, cooperative and in no distress. Pulmonary: Clear to auscultation bilaterally. Cardiac: Regular rhythm with no murmur, gallop or rub. Abdomen: Soft, nontender with normal bowel sounds. Extremities: Her legs are very large but she has +3 bilateral pretibial edema. Skin: No rash, ecchymoses or petechiae. Results & Data Vital Signs (Past 12 Hours) Vital Signs Temp Pulse Resp BP Pulse Ox 01/14/19 07:12 37.0 C 62 19 111/50 L 95 01/14/19 03:58 36.8 C 62 18 106/47 L 93 01/14/19 00:00 36.7 C 67 19 111/69 92 Laboratory Results Abnormal lab results 01/13/19 01/13/19 01/14/19 Range/Units 06:40 06:40 06:04 ESR 30 H (0-21) mm/hr BUN 43 H (7-18) mg/dl Creatinine 2.07 H (0.6-1.2) mg/dl BUN/Creatinine Ratio 20.7 H (10-20) Glucose 154 H (70-99) mg/dl Uric Acid 9.7 H (2.6-7.2) mg/dl Calcium 8.2 L (8.5-10.1) mg/dl Magnesium 1.6 L (1.8-2.4) mg/dl Diagnostic Findings Telemetry: Sinus rhythm, first-degree AV block, no significant arrhythmia PG Care Time/CCT Total # of Minutes Spent Total Time Spent with Patient: Total time spent is greater than 50% in coordination of care (as documented) at patient's floor/unit and/or counseling patient: (1) Atrial fibrillation Atrial fibrillation type: paroxysmal Qualified Code(s): I48.0 - Paroxysmal atrial fibrillation
[2019-01-14] MEDS: APIXABAN 2.5 MG TAB PO SCH ×2 (10:13→21:37)
[2019-01-14] MEDS: MAGNESIUM SULFATE / D5W 1 GM/100 ML BAG IV SCH ×2 (10:14→11:10)
[2019-01-14] MEDS: predniSONE 5 MG TAB PO SCH (11:10)
--- NOTE | 2019-01-14 15:46 | Heart Failure Progress Note ---
Date of Service January 14, 2019 Assessment & Plan (1) Left bundle branch block (LBBB): She had a left bundle branch block pattern (although she had R waves in the precordial leads it was not a true complete left bundle) on admission, however on a repeat electrocardiogram January 13, 2019 the QRS was just 120 ms with a similar pattern. Prior electrocardiograms have looks similar but with narrower complexes. She may have had a gradual increase in QRS complex over the years but at this point it is borderline as to whether there would be any benefit from resynchronization therapy. Part of her wider complex on admission may have been hyperkalemia. Biventricular pacing would likely not offer much value in this situation although technically could be considered per Dr. Mujica. (2) Hyperkalemia: She has a history of significant hyperkalemia (as high as 6). She reports that she believes she was taking potassium supplements at that time last fall. This has since been discontinued. Her potassium has normalized but this may be due to the fact that she was undergone significant diuresis. Will continue to monitor closely. (3) Acute on chronic systolic (congestive) heart failure: She is diuresing quite well on her current diuretic dose, > 2 L per day. She is negative 15 L this admission. Her symptoms have improved drastically. I suspect she is near euvolemic. Could consider transitioning her to oral diuretics over the next 24 hours. Her previous home dose was 40 mg daily with an additional 40 mg PRN. Would recommend 40 mg BID at discharge. Continue low sodium diet, less than 2,000 mg daily. She initially reported that she has a fixed diet at her facility but the family states she does have a menu option and may be able to make better choices. She also receives snacks from outside the fa cility quite often. Continue to encourage compliance. She does not typically drink a lot of fluids and is likely already under the recommended restriction. She was being weighed once a week prior to admission. I have asked her to increase this to daily weights and she is agreeable. She is able to have a scale in her room if needed but there is an accessible scale near her room. She was instructed to notify the heart failure program for 2+lb weight gain overnight or 5+lb in 1 week. We also discussed the nature of the program and the plan for intense follow up after discharge. (4) Atrial fibrillation: She has a history of atrial fibrillation but has not been in atrial fibrillation this admission, she does need to remain on anticoagulation. Currently she is on Eliquis 2.5 mg twice a day, based on weight we would choose a higher dose, based on renal function in the lower dose and her age is just borderline but technically the lower dose is probably sufficient. (5) Cardiomyopathy: She has a cardiomyopathy which may be slightly progressive compared to prior recent measurements but she is not on optimal medical therapy. Continue Carvedilol 25 mg BID. The family has reservations regarding the Entresto. At this time we have agreed to hold off for now and continue Lisinopril. This has been reordered starting tomorrow. For now we will continue to optimize her volume status with careful monitoring of her kidney function and electrolytes. If her potassium and kidney function remain stable, could consider transitioning to Entresto in the coming weeks. Patient and family decline ICD for now. Disposition: Will follow during hospitalization. Plan is to return to [facility] once optimized. Anticipate follow up with heart failure program within 7 days of discharge as per the guidelines. Will need BMP/Mag prior to her appointment. DC recs: - Daily standing weights at [facility] - Notify CHF program for 2+ lb weight gain overnight or 5+ lb in 1 week. - Low sodium diet, less than 2,000mg daily - Follow up within 7 days of discharge - Follow up with Dr. Lund in 2-3 months. - BMP + Mag early next week. Subjective Patient is resting comfortably in bed. Multiple family members present. Patient reports she is feeling improved. Her breathing has returned to baseline and her lower extremity edema is better than it's been "in 10 years." Her biggest complaint today is BL foot and ankle pain which is preventing her from ambulating (gout?). She chronically sleeps in a chair but denies PND. Results & Data Vital Signs (Past 12 Hours) Vital Signs Temp Pulse Pulse Resp BP Pulse Ox 01/14/19 11:30 97.9 F 57 L 20 100/57 L 96 01/14/19 07:45 60 01/14/19 07:12 98.6 F 62 19 111/50 L 95 01/14/19 03:58 98.2 F 62 18 106/47 L 93 (1) Atrial fibrillation Atrial fibrillation type: paroxysmal Qualified Code(s): I48.0 - Paroxysmal atrial fibrillation
[2019-01-14] MEDS ORDERED: SACUBITRIL-VALSARTAN 49/51 MG TAB PO SCH (21:00)
--- NOTE | 2019-01-14 21:30 | Hospitalist Progress Note ---
Date of Service January 14, 2019 Assessment & Plan (1) Acute on chronic systolic (congestive) heart failure: continues to improve. Marked diuresis since admission. Creatinine remains stable. suspect, however, we are approaching euvolemia. cont IV lasix perhaps 1 more day. metolazone on hold for now. cont BB. resumed KEITH today as recommended by cardiology. appreciate cardiology recs. at this time no plans for BiV pacer/ICD. of note - echo this admission w/ EF 25-30%. (2) Left foot pain: suspected gout. uric acid quite high. risk factors - CKD, thiazide diuretic usage. checked left foot and ankle films - normal. continue low-dose prednisone 5mg daily for 5-7 days. (3) CKD (chronic kidney disease), stage IV: creatinine remains stable. repeat BMP am. (4) CAD (coronary artery disease): history of such. cardiac catheterization in July 2007 revealed an obstructed right-sided PDA. She was noted to have a codominant system at that time. troponins were negative x 3 at time of this hospitalization. continue beta guera. (5) Atrial fibrillation: PAF. stable on telemetry. cont eliquis. cont BB. (6) DM w/o complication type II: last A1c was 5.8% in September 2018. pre-DM. even with steroids sugars are acceptable. (7) PE (pulmonary embolism): history of such. eliquis BID. (8) Obesity (BMI 30-39.9): BMI 38 s/p copious diuresis. (9) Hypothyroidism: most recent TSH was compensated cont synthroid (10) DVT prophylaxis: eliquis PT, OT evals d/c harmon ambulate Subjective patient's left foot/ankle feeling better but still not wanting to walk. doesn't want catheter out. I checked o2 sats during my visit w/ her - sats 93% in RA. dyspnea and HILL both improved. no PND/orthopnea. Review of Systems Constitutional: no fever Respiratory: no cough Cardiovascular: no chest pain Gastrointestinal: no abdominal pain and no constipation Physical Exam Constitutional: well developed, well nourished and + morbidly obese; no acute distress ENMT: external ear and nose normal, oropharynx normal Respiratory: no respiratory distress Auscultation: + rales (fine, bases only - improved today); no wheezes Cardiovascular: Rate/Rhythm: regular rate and regular rhythm Heart Sounds: normal S1, normal S2 and + murmur (1/6 LSB) Vessels: + JVD (resolved), posterior tibial pulses present and dorsalis pedis pulses present Extremities: no edema Gastrointestinal (Abdomen): normal bowel sounds, soft, nontender, no hepatosplenomegaly Musculoskeletal: left mid-foot and ankle much less tender to palpation today; left first MTP joint slightly tender; ROM improved today Psychiatric: A+Ox3, euthymic affect Results & Data Vital Signs (Past 12 Hours) Vital Signs Temp Pulse Pulse Resp BP Pulse Ox 01/14/19 19:35 36.5 C 90 20 110/54 L 90 01/14/19 16:00 60 01/14/19 15:47 36.8 C 61 18 124/62 92 01/14/19 11:30 36.6 C 57 L 20 100/57 L 96 Laboratory Results Laboratory Results - last 24 hr 01/14/19 06:04 Sodium 140 Potassium 4.4 Chloride 102 Carbon Dioxide 29 Anion Gap 9.0 BUN 43 H Creatinine 2.07 H Est Cr Clr Drug Dosing 27.1 Est GFR ( Amer) 25.6 Est GFR (Non-Af Amer) 22.1 BUN/Creatinine Ratio 20.7 H Glucose 154 H Calcium 8.2 L Magnesium 1.6 L PG Care Time/CCT Total # of Minutes Spent Total Time Spent with Patient: Total time spent is greater than 50% in coordination of care (as documented) at patient's floor/unit and/or counseling patient: (1) DM w/o complication type II 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 transplanted heart: kake heart Qualified Code(s): I25.10 - Atherosclerotic heart disease of [place] coronary artery without angina pectoris (3) Atrial fibrillation Atrial fibrillation type: paroxysmal Qualified Code(s): I48.0 - Paroxysmal atrial fibrillation (4) Hypothyroidism Hypothyroidism type: acquired Qualified Code(s): E03.9 - Hypothyroidism, unspecified (5) PE (pulmonary embolism) Acute cor pulmonale presence: without acute cor pulmonale Chronicity: unspecified Pulmonary embolism type: other Qualified Code(s): I26.99 - Other pulmonary embolism without acute cor pulmonale
[2019-01-14] MEDS: TRAMADOL HCL 50 MG TABLET PO SCH (21:36)
[2019-01-14] MEDS: LORazepam 1 MG TAB PO SCH (21:36)
[2019-01-15] MEDS: LEVOTHYROXINE SODIUM 50 MCG TABLET PO SCH (05:51)
[2019-01-15 06:33] LABS: BUN Creatinine Ratio 25.4 (10-20); Calcium 8.5 mg/dl (8.5-10.1); Creatinine Clr Calc Pharmacy 25.7 ml/min; Est GFR (African American) 24.2; Est GFR (Non-African American) 20.8; Magnesium 2.2 mg/dl (1.8-2.4); Potassium 3.9 mmol/L (3.5-5.1)
--- NOTE | 2019-01-15 08:09 | Cardioversion ---
Date of Service January 15, 2019
[2019-01-15] MEDS ORDERED: LISINOPRIL 5 MG TAB PO SCH (09:00)
[2019-01-15] MEDS: CARVEDILOL 25 MG TAB PO SCH (09:53)
[2019-01-15] MEDS: FUROSEMIDE 40 MG in SYRINGE 0 ML IV SCH (09:57)
[2019-01-15] MEDS ORDERED: SODIUM CHLORIDE 0.9% 1000ML 500 ML IV ONE ×2 (10:00→12:03)
[2019-01-15] MEDS: SERTRALINE HCL 50 MG TABLET PO SCH (10:02)
[2019-01-15] MEDS: CETIRIZINE HCL 10 MG TABLET PO SCH (10:02)
[2019-01-15] MEDS: APIXABAN 2.5 MG TAB PO SCH ×2 (10:02→19:42)
[2019-01-15] MEDS: predniSONE 5 MG TAB PO SCH (10:02)
[2019-01-15] MEDS: NYSTATIN CR 15 GM TUBE EXT SCH ×2 (10:04→19:45)
--- NOTE | 2019-01-15 11:02 | Cardiology Progress Note ---
Date of Service January 15, 2019 Assessment & Plan (1) Left bundle branch block (LBBB): She had a left bundle branch block pattern (although she had R waves in the precordial leads it was not a true complete left bundle) on admission, however on a repeat electrocardiogram January 13, 2019 the QRS was just 120 ms with a similar pattern. Prior electrocardiograms have looks similar but with narrower complexes. She may have had a gradual increase in QRS complex over the years but at this point it is borderline as to whether there would be any benefit from resynchronization therapy. Part of her wider complex on admission may have been hyperkalemia. Biventricular pacing would likely not offer much value in this situation although technically could be considered per Dr. Mujica. (2) Hyperkalemia: She has a history of significant hyperkalemia (as high as 6). She reports that she believes she was taking potassium supplements at that time last fall. This has since been discontinued. Her potassium has normalized but this may be due to the fact that she was undergone significant diuresis. Will continue to monitor closely, her potassium has been trending down gradually and is 3.9 today. This is acceptable I would not want to be much lower. This is consistent with outpatient potassium ingestion as well as use of an KEITH inhibitor. (3) Acute on chronic systolic (congestive) heart failure: At this point I agree that she is slightly over diuresed, her BUN/creatinine have increased and she was little hypotensive. I do not think we overshot by much so I would not give her a lot of fluid but I would not continue to diuresis. I think we should try to maintain her weight about where it is. (4) Atrial fibrillation: She has a history of atrial fibrillation but has not been in atrial fibrillation this admission, she does need to remain on anticoagulation. Currently she is on Eliquis 2.5 mg twice a day, based on weight we would choose a higher dose, based on renal function in the lower dose and her age is just borderline but technically the lower dose is probably sufficient. (5) Cardiomyopathy: She has a cardiomyopathy which may be slightly progressive compared to prior recent measurements but she is not on optimal medical therapy. Continue Carvedilol 25 mg BID. The family has reservations regarding the Entresto. She is therefore back on lisinopril although I had intended to start Entresto last evening. (6) NSVT (nonsustained ventricular tachycardia): She had a 15 beat run of nonsustained ventricular tachycardia, the rate was fast at 170 bpm. It was evidently asymptomatic. This is worrisome in view of her cardiomyopathy. I mentioned that she had this episode, however she has declined ICD implantation and confirms that today. Subjective Today she is not feeling as well as yesterday, she had a hypotensive episode and received a little fluid, presumably this was due to a little bit of dehydration from diuresis. No chest discomfort or palpitations. Physical Exam Physical Exam: Constitutional: Alert, cooperative and in no distress. Pulmonary: Clear to auscultation bilaterally. Cardiac: Regular rhythm with no murmur, gallop or rub. Abdomen: Soft, nontender with normal bowel sounds. Extremities: She continues to have large legs, although not terribly edematous. Skin: No rash, ecchymoses or petechiae. Results & Data Vital Signs (Past 12 Hours) Vital Signs Temp Pulse Resp BP Pulse Ox 01/15/19 10:36 100/45 L 01/15/19 10:08 88/44 L 01/15/19 09:45 77/38 L 01/15/19 09:17 94/68 L 01/15/19 09:11 78/43 L 01/15/19 09:10 55/29 L 01/15/19 08:47 95/36 L 01/15/19 08:41 101/40 L 01/15/19 07:45 36.5 C 60 20 125/68 97 01/15/19 03:47 36.6 C 63 19 105/62 91 01/14/19 23:37 37.0 C 67 18 130/59 L 93 Laboratory Results Abnormal lab results 01/15/19 Range/Units 05:46 BUN 55 H (7-18) mg/dl Creatinine 2.17 H (0.6-1.2) mg/dl BUN/Creatinine Ratio 25.4 H (10-20) Diagnostic Findings Telemetry: Sinus rhythm, one 15 beat run of ventricular tachycardia at heart rate 170 bpm since yesterday. PG Care Time/CCT Total # of Minutes Spent Total Time Spent with Patient: Total time spent is greater than 50% in coordination of care (as documented) at patient's floor/unit and/or counseling patient: (1) Atrial fibrillation Atrial fibrillation type: paroxysmal Qualified Code(s): I48.0 - Paroxysmal atrial fibrillation
[2019-01-15] MEDS: LORazepam 1 MG TAB PO SCH (19:44)
[2019-01-15] MEDS: TRAMADOL HCL 50 MG TABLET PO SCH (19:44)
--- NOTE | 2019-01-15 20:48 | Hospitalist Progress Note ---
Date of Service January 15, 2019 Assessment & Plan (1) Acute on chronic systolic (congestive) heart failure: acute exacerbation resolved. at this point is volume depleted in midst of diuresis. gave total of 1 L NS today in light of marked orthostasis and hypotension. latter resolved following fluid administration. will need to hold coreg/KEITH until stability of BPs seen. stopped IV lasix. echo this admission w/ EF 25-30%. ICD planned - possibly tomorrow - by Dr Mujica. repeat labs am. (2) Left foot pain: resolved with prednisone. suspected gout. uric acid quite high. risk factors - CKD, thiazide diuretic usage. checked left foot and ankle films - normal. continue low-dose prednisone 5mg daily for 5 more days or so. would only consider allopurinol if she has recurrent flares. (3) CKD (chronic kidney disease), stage IV: creatinine remains stable even in face of today's events. repeat BMP am for stability. (4) CAD (coronary artery disease): history of such. cardiac catheterization in July 2007 revealed an obstructed right-sided PDA. She was noted to have a codominant system at that time. troponins were negative x 3 at time of this hospitalization. continue beta guera. (5) Atrial fibrillation: PAF. stable on telemetry except for NSVT seen this am (which was not symptomatic). cont eliquis. cont BB. (6) DM w/o complication type II: last A1c was 5.8% in September 2018. pre-DM. even with steroids sugars cont to be acceptable. (7) PE (pulmonary embolism): history of such. eliquis BID. (8) Obesity (BMI 30-39.9): BMI 38 s/p copious diuresis. (9) Hypothyroidism: most recent TSH was compensated cont synthroid (10) NSVT (nonsustained ventricular tachycardia): seen on monitoring overnight. in light of depressed EF, NSVT, etc she is ICD candidate. initially patient/family did not wish to pursue. after lengthy discussion today patient/family now wanting to proceed with ICD placement. NPO after MN for potentially having this done tomorrow. hold eliquis in preparation. (11) Hypotension: 2nd to over diuresis/volume contraction. resolved s/p two 500 cc boluses of fluid. holding coreg, KEITH. stopped IV lasix. BMP am. (12) DVT prophylaxis: eliquis but hold for ICD placement. PT, OT angus recommending SNF but patient has 24/7 care at personal snf as confirmed with her daughters. family wants her to return to [facility]. d/c harmon ambulate overall progressing nicely Subjective called by nursing staff this am that patient, when working with PT, was markedly orthostatic with SBPs well below 90. she was dizzy and lightheaded. after going back in the bed her SBP was still low. verbal orders given to hold her coreg, KEITH, and IV lasix. gave 500cc NS bolus - following such SBP was >90. gave 2nd 500cc bolus with improved SBP to 100-120. saw patient twice at the bedside today. first visit was in the midst of the hypotension. she told me she wasn't sure about ICD placement. I mentioned she had had NSVT at 0600 this am. She also stated she was off O2 all day yesterday and was placed back on O2 sometime during the night. Denied any dyspnea or HILL or orthopnea today. 2nd visit was later in the day (~1700) -- 3 of her daughters were at bedside. we discussed ICD placement. I informed them about Dr Mujica's recommendations and the NSVT. Pt and daughters all in agreement to proceed with ICD placement. Review of Systems Constitutional: no fever Respiratory: no cough and no dyspnea Cardiovascular: no chest pain, no dyspnea on exertion, no orthopnea, no paroxysmal nocturnal dyspnea and no edema Musculoskeletal: + joint pain (left foot / ankle markedly improved ) Physical Exam Constitutional: well developed, well nourished and + morbidly obese; no acute distress ENMT: external ear and nose normal, oropharynx normal Respiratory: normal respiratory effort, lungs clear to auscultation no respiratory distress Auscultation: no rales and no wheezes Cardiovascular: Rate/Rhythm: regular rate and regular rhythm Heart Sounds: normal S1, normal S2 and + murmur (1/6 LSB) Vessels: posterior tibial pulses present and dorsalis pedis pulses present; no JVD Extremities: no edema Gastrointestinal (Abdomen): normal bowel sounds, soft, nontender, no hepatosplenomegaly Musculoskeletal: left ankle - no swelling or tenderness. left mid-foot - no swelling or tenderness. she can actively move left foot / ankle today w/o any pain/tenderness. Psychiatric: A+Ox3, euthymic affect Results & Data Vital Signs (Past 12 Hours) Vital Signs Temp Pulse Resp BP Pulse Ox 01/15/19 19:13 36.9 C 62 18 102/56 L 90 01/15/19 15:45 36.6 C 64 18 118/67 98 01/15/19 11:28 36.7 C 53 L 20 93/48 L 97 01/15/19 10:36 100/45 L 01/15/19 10:08 88/44 L 01/15/19 09:45 77/38 L 01/15/19 09:17 94/68 L 01/15/19 09:11 78/43 L 01/15/19 09:10 55/29 L 01/15/19 08:47 95/36 L Laboratory Results Laboratory Results - last 24 hr 01/15/19 05:46 Sodium 139 Potassium 3.9 Chloride 101 Carbon Dioxide 31 Anion Gap 7.0 BUN 55 H Creatinine 2.17 H Est Cr Clr Drug Dosing 25.7 Est GFR ( Amer) 24.2 Est GFR (Non-Af Amer) 20.8 BUN/Creatinine Ratio 25.4 H Glucose 97 Calcium 8.5 Magnesium 2.2 PG Care Time/CCT Total # of Minutes Spent Total Time Spent with Patient: Total time spent is greater than 50% in coordination of care (as documented) at patient's floor/unit and/or counseling patient: (1) DM w/o complication type II Diabetes mellitus correction insulin use: without correction use Qualified Co de(s): E11.9 - Type 2 diabetes mellitus without complications (2) CAD (coronary artery disease) Associated angina: without angina Coronary Disease-Associated Artery/Lesion type: [place] artery [place] vs. transplanted heart: [place] heart Qualified Code(s): I25.10 - Atherosclerotic heart disease of [place] coronary artery without angina pectoris (3) Atrial fibrillation Atrial fibrillation type: paroxysmal Qualified Code(s): I48.0 - Paroxysmal atrial fibrillation (4) Hypothyroidism Hypothyroidism type: acquired Qualified Code(s): E03.9 - Hypothyroidism, unspecified (5) PE (pulmonary embolism) Acute cor pulmonale presence: without acute cor pulmonale Chronicity: unspecified Pulmonary embolism type: other Qualified Code(s): I26.99 - Other pulmonary embolism without acute cor pulmonale (6) Hypotension Hypotension type: other hypotension type Qualified Code(s): I95.89 - Other hypotension
[2019-01-16] MEDS: LEVOTHYROXINE SODIUM 50 MCG TABLET PO SCH (05:42)
[2019-01-16 05:46] LABS: Hematocrit (blood only) 37.9 % (37-47); Hemoglobin 12.2 g/dL (12.0-16.0); Mean Corpuscular Hgb Conc 32.2 g/dL (32-36); Mean Corpuscular Volume 96.2 fL (80-100); Mean Platelet Volume 10.5 fL (7.4-10.4); Platelet Count 189 K/uL (130-400); RDW Coefficient of Variation 13.5 % (11.5-14.5); RDW Standard Deviation 47.5 fL (36.4-46.3); Red Blood Count 3.94 M/uL (4.2-5.4)
[2019-01-16 06:23] LABS: BUN Creatinine Ratio 31.3 (10-20); Calcium 8.5 mg/dl (8.5-10.1); Creatinine Clr Calc Pharmacy 28.1 ml/min; Est GFR (Non-African American) 23.3; Potassium 4.1 mmol/L (3.5-5.1)
[2019-01-16] MEDS: NYSTATIN CR 15 GM TUBE EXT SCH ×2 (07:40→20:02)
[2019-01-16] MEDS: CETIRIZINE HCL 10 MG TABLET PO SCH (07:41)
[2019-01-16] MEDS: SERTRALINE HCL 50 MG TABLET PO SCH (07:41)
[2019-01-16] MEDS: predniSONE 5 MG TAB PO SCH (07:42)
--- NOTE | 2019-01-16 09:26 | Cardiology Progress Note ---
Date of Service January 16, 2019 Assessment & Plan (1) Left bundle branch block (LBBB): She had a left bundle branch block pattern (although she had R waves in the precordial leads it was not a true complete left bundle) on admission, however on a repeat electrocardiogram January 13, 2019 the QRS was just 120 ms with a similar pattern. Prior electrocardiograms have looks similar but with narrower complexes. She may have had a gradual increase in QRS complex over the years but at this point it is borderline as to whether there would be any benefit from resynchronization therapy. Part of her wider complex on admission may have been hyperkalemia. Biventricular pacing would likely not offer much value in this situation although technically could be considered. (2) Hyperkalemia: She has a history of significant hyperkalemia (as high as 6). She reports that she believes she was taking potassium supplements at that time last fall. This has since been discontinued. Her potassium has normalized but this may be due to the fact that she was undergone significant diuresis. Will continue to monitor closely, her potassium has been trending down gradually and is 3.9 today. This is acceptable I would not want to be much lower. This is consist ent with outpatient potassium ingestion as well as use of an KEITH inhibitor. (3) Acute on chronic systolic (congestive) heart failure: I believe she is euhydrated now, she was a little bit dry yesterday based on her hypotension and her slight worsening of kidney function. Today her kidney function has improved (although still abnormal). I would try to maintain her current weight and volume status. (4) Atrial fibrillation: She has a history of atrial fibrillation but has not been in atrial fibrillation this admission, she does need to remain on anticoagulation. Currently she is on Eliquis 2.5 mg twice a day, based on weight we would choose a higher dose, based on renal function in the lower dose and her age is just borderline but technically the lower dose is probably sufficient. (5) Cardiomyopathy: She has a cardiomyopathy which may be slightly progressive compared to prior recent measurements but she is not on optimal medical therapy. Continue Carvedilol 25 mg BID. The family has reservations regarding the Entresto. She is therefore back on lisinopril although I had intended to start Entresto. (6) NSVT (nonsustained ventricular tachycardia): She had a 15 beat run of nonsustained ventricular tachycardia, the rate was fast at 170 bpm. It was evidently asymptomatic. This is worrisome in view of her cardiomyopathy. She has agreed to an ICD. I discussed the indications, procedure, risks and alternatives of ICD implantation with her and her daughter. They understand and she agrees to proceed. Consent obtained. I also reviewed conscious sedation with her and she is agreeable. Consent obtained. She received Eliquis last evening, it was held this morning. Ideally we would wait longer, I discussed the increased risk of bleeding if we proceed this afternoon, it may be safer in general not to hold anticoagulation anymore than we can and the risk of bleeding is relatively low. She is agreeable to this approach and we will proceed today. Subjective She is feeling well today, better than yesterday when she had a low blood pressure. She has had no palpitations, she is in good spirits. Physical Exam Physical Exam: Constitutional: Alert, cooperative and in no distress. Pulmonary: Clear to auscultation bilaterally. Cardiac: Regular rhythm with no murmur, gallop or rub. Abdomen: Soft, nontender with normal bowel sounds. Extremities: She continues to have large legs, although not terribly edematous. Skin: No rash, ecchymoses or petechiae. Results & Data Vital Signs (Past 12 Hours) Vital Signs Temp Pulse Pulse Resp BP Pulse Ox 01/16/19 07:12 36.7 C 63 18 122/65 90 01/15/19 23:46 36.6 C 62 19 116/51 L 91 01/15/19 22:20 63 Laboratory Results Abnormal lab results 01/16/19 01/16/19 Range/Units 05:07 05:07 RBC 3.94 L (4.2-5.4) M/uL RDW Std Deviation 47.5 H (36.4-46.3) fL MPV 10.5 H (7.4-10.4) fL BUN 62 H (7-18) mg/dl Creatinine 1.98 H (0.6-1.2) mg/dl BUN/Creatinine Ratio 31.3 H (10-20) Diagnostic Findings Telemetry: Sinus rhythm, no ventricular tachycardia since yesterday PG Care Time/CCT Total # of Minutes Spent Total Time Spent with Patient: Total time spent is greater than 50% in coordination of care (as documented) at patient's floor/unit and/or counseling patient: (1) Atrial fibrillation Atrial fibrillation type: paroxysmal Qualified Code(s): I48.0 - Paroxysmal atrial fibrillation
[2019-01-16] MEDS ORDERED: LACTATED RINGER'S 1,000 ML IV SCH (09:30)
[2019-01-16] MEDS ORDERED: BACITRACIN INJ 50,000 UNIT VIAL ONE (13:22)
[2019-01-16] MEDS ORDERED: LIDOCAINE HCL 1% 20 ML VIAL ONE (13:22)
[2019-01-16] MEDS ORDERED: BACITRACIN OINT 0.9 GM PKT ONE (13:22)
[2019-01-16] MEDS ORDERED: MIDAZOLAM HCL 5 MG/ML 1 ML VIAL ONE (13:47)
[2019-01-16] MEDS ORDERED: fentaNYL citrate 100 MCG/2 ML VIAL ONE (13:47)
[2019-01-16] MEDS ORDERED: CEFAZOLIN 250 MG/ML 1 GM VIAL ONE (13:48)
--- NOTE | 2019-01-16 14:06 | Pre Anesthesia Assessment ---
Date of Service January 16, 2019 Pre Sedation Assessment Vital Signs Temp Pulse Pulse Resp BP Pulse Ox 01/16/19 11:55 36.8 C 64 22 152/72 H 93 01/16/19 08:00 63 01/16/19 07:12 36.7 C 63 18 122/65 90 01/15/19 23:46 36.6 C 62 19 116/51 L 91 01/15/19 22:20 63 01/15/19 19:13 36.9 C 62 18 102/56 L 90 01/15/19 15:45 36.6 C 64 18 118/67 98 Cardiovascular RRR, no murmur, no edema Respiratory normal respiratory effort, lungs clear to auscultation Pre-Sedation Airway Assessment Smoking Status: Never smoker Hx Sleep Apnea: No Hx Difficult Intubation: No Short, Thick Neck: No Thyromental Distance: > or= 3.5 Finger Breadths Mallampati Class: II ASA: ASA3 NPO Status Date of Last Intake of Fluids: 01/15/19 Date of Last Intake of Solid Food: 01/15/19 Procedure Planning Contraindications for Sedation: none Current Medications Reviewed: Yes Notes The planned sedation has been discussed with the patient. Informed Consent was obtained. I have identified the patient, determined the appropriateness of sedation and have assessed the patient immediately prior to the procedure. All medicine(s) and interventions are by my order.
--- NOTE | 2019-01-16 15:32 | Operative Report ---
Post Operative Report Pre & Post Diagnosis Operation Date: 01/16/19 14:30 Preoperative diagnosis: Severe cardiomyopathy, sinus bradycardia Postoperative diagnosis: Same Procedure Operation Date: 01/16/19 14:30 Actual Procedures p ICD Insertion Single or Dual - Padilla Mujica MD Surgeon Padilla Mujica MD Comfort Station Attendant None Estimated Blood Loss 20 Findings Consistent with Post-Op Diagnosis Specimens None Anesthesia Type Local Complications none Disposition Disposition: PCU Description of Procedure after obtaining informed consent for the procedure, the patient was brought to the laboratory and prepped and draped in the standard sterile manner. The left prepectoral region was anesthetized with 1% lidocaine local anesthetic and left axillary venipuncture was performed by percutaneous technique and a guidewire placed through the left subclavian vein into the superior vena cava. The area was further infiltrated with 1% lidocaine local anesthetic and a 7 cm incision was made parallel to the left clavicle and 2 cm below it and carried down to the anterior pectoralis fascia. An ICD pocket was formed by blunt dissection anterior to the pectoralis fascia and a bacitracin-soaked sponge (50,000 units in 50 cc normal saline solution) was placed in the pocket. A 10.5 [place] Medtronic lead introducer was placed over the guidewire into the left subclavian vein, the dilator and guidewire were removed and a bipolar dual coil active fixation steroid tipped ventricular ICD lead was advanced through the introducer into the superior vena cava. A guidewire was placed through the introducer and the introducer was stripped from the lead and guidewire. An 8 [place] Medtronic lead introducer was placed over the guidewire into the left subclavian vein, the dilator and guidewire were removed and a bipolar active fixation steroid tipped atrial lead was advanced through the introducer into the superior vena cava. A guidewire was placed back through the introducer and the introducer was stripped from the lead and guidewire. Using a curved stylette the ventricular lead was advanced through the right ventricular outflow tract into the pulmonary artery and then using a straight stylette was positioned in the right ventricular apex. The screw was extended fixing the lead in position. Pacing and sensing thresholds were evaluated in bipolar configuration and are recorded on the implant data sheet. Using a curved stylette the atrial lead was positioned in the region of the atrial appendage and the screw extended fixing the lead in position. Pacing and sensing thresholds were evaluated in bipolar configuration and are recorded on the implant data sheet. Once the leads were in position they were attached to the anterior pectoralis fascia using 2 sutures of 2-0 silk around each lead collar. The bacitracin- soaked sponge was removed from the pocket, hemostasis was obtained, the ICD was attached to the leads and placed in the pocket with the leads coiled beneath it. The incision was closed with a running double subcutaneous closure of 3-0 Vicryl absorbable suture, followed by running subcuticular skin closure of 4-0 Vicryl absorbable suture. Bacitracin ointment was placed on the incision and a dressing applied. I attest to the content of the Intraoperative Record and any orders documented therein. Any exceptions are noted below.
[2019-01-16] MEDS ORDERED: ACETAMINOPHEN W/CODEINE #3 1 TAB PO PRN (15:35)
[2019-01-16] MEDS ORDERED: ACETAMINOPHEN 325 MG TAB PO PRN (15:35)
--- NOTE | 2019-01-16 15:38 | Post Anesthesia Assessment ---
Date of Service January 16, 2019 Post Sedation Assessment Vital Signs Temp Pulse Pulse Resp BP Pulse Ox 01/16/19 11:55 36.8 C 64 22 152/72 H 93 01/16/19 08:00 63 01/16/19 07:12 36.7 C 63 18 122/65 90 01/15/19 23:46 36.6 C 62 19 116/51 L 91 01/15/19 22:20 63 01/15/19 19:13 36.9 C 62 18 102/56 L 90 01/15/19 15:45 36.6 C 64 18 118/67 98 Recovery Score Activity: Moves 4 extremities Respiration: Deep Breath/Cough Consciousness: Fully Awake Oxygen Saturation: > 92% On Room Air Discharge Sedation Level of Care: Fast Track Phase II Post Sedation Plan On clinical assessment, the patient appears to have tolerated the sedation without complications. Patient is recovering as anticipated. Patient will continue to be monitored by nursing and may be discharged when sedation discharge criteria are met per below protocol. Upon Completions of procedure and additional 15 minutes continue every 5 minute vital signs and the P.A.R. score; then discharge to a Phase I or Fast Track to Phase II per the following guidelines: * Discharge Patient to appropriate Phase II area if PAR is 8 or greater or return to pre- procedure baseline. The post - procedure orders will be as directed. * If PAR score is less than 8 or not return to pre-procedure baseline then patient will follow Phase I monitoring till PAR is reached for Phase II. The Phase I may be done in procedure room or may call to secure a Phase I area. * If naloxone or flumazenil are used for reversal, hold in Phase I for continued monitoring from when last reversal dose was given for a minimum of 60 minutes or longer pending the nurse and/or physician discretion of patient condition before discharge to Phase II. Please call the Sedation Physician to re-evaluate and complete post-note for discharge to Phase II area. Do NOT discharge from procedure sedation or Phase 1 until post- sedation evaluation note is complete by procedure /sedation MD Sedation Discharge Instructions to be given to the patient at discharge to home.
[2019-01-16] MEDS: LORazepam 1 MG TAB PO SCH (20:02)
[2019-01-16] MEDS: TRAMADOL HCL 50 MG TABLET PO SCH (20:02)
[2019-01-16] MEDS: CARVEDILOL 25 MG TAB PO SCH (20:02)
--- NOTE | 2019-01-16 20:37 | Hospitalist Progress Note ---
Date of Service January 16, 2019 Assessment & Plan (1) Acute on chronic systolic (congestive) heart failure: acute exacerbation resolved. became mildly volume depleted yesterday with hypotension - coreg/KEITH/lasix on hold. echo this admission w/ EF 25-30%. s/p BiV pacer/ICD today by Dr Mujica. appreciate his assistance. repeat labs am. hopefully d/c tomorrow. (2) Left foot pain: resolved with prednisone. suspected gout. uric acid quite high. risk factors - CKD, thiazide diuretic usage. checked left foot and ankle films - normal. continue low-dose prednisone 5mg daily for 2-3 more days then stop. would only consider allopurinol if she has recurrent flares. (3) CKD (chronic kidney disease), stage IV: creatinine stable today. bmp am. (4) CAD (coronary artery disease): history of such. cardiac catheterization in July 2007 revealed an obstructed right-sided PDA. She was noted to have a codominant system at that time. troponins were negative x 3 at time of this hospitalization. continue beta guera. (5) Atrial fibrillation: PAF. stable on telemetry except for NSVT seen yesterday (which was not symptomatic). resume eliquis when ok with Dr Mujica. resume BB - perhaps tomorrow. (6) DM w/o complication type II: last A1c was 5.8% in September 2018. pre-DM. even with steroids sugars cont to be acceptable. (7) PE (pulmonary embolism): history of such. resume eliquis BID when ok with Dr Mujica. (8) Obesity (BMI 30-39.9): BMI 38 s/p copious diuresis. (9) Hypothyroidism: most recent TSH was compensated cont synthroid (10) NSVT (nonsustained ventricular tachycardia): s/p ICD placement today. tolerated procedure well. (11) Hypotension: 2nd to over diuresis/volume contraction. resolved s/p two 500 cc boluses of fluid. holding coreg, KEITH. holding lasix. BPs stable. Creatinine stable in midst of this. BMP am. (12) DVT prophylaxis: eliquis on hold until tomorrow PT, OT evals recommending SNF but patient has 24/7 care at personal [facility] as confirmed with her daughters. family wants her to return to [facility]. d/c tomorrow? Subjective saw patient post-ICD placement. c/o "soreness" over operative site. otherwise no dyspnea, orthopnea, PND, substernal cp, abd pain. feels good. left ankle/foot pain resolved. walking w/o difficulty. eating well. family at bedside. Review of Systems Constitutional: no fever and no chills Respiratory: no cough and no dyspnea Cardiovascular: as per Subjective / HPI; no edema Gastrointestinal: no abdominal pain, no nausea and no vomiting Physical Exam Constitutional: well developed, well nourished and + morbidly obese; no acute distress ENMT: external ear and nose normal, oropharynx normal Respiratory: normal respiratory effort, lungs clear to auscultation Auscultation: no rales and no wheezes Cardiovascular: Rate/Rhythm: regular rate and regular rhythm Heart Sounds: normal S1, normal S2 and + murmur (1/6 LSB) Vessels: posterior tibial pulses present and dorsalis pedis pulses present; no JVD Extremities: no edema Gastrointestinal (Abdomen): normal bowel sounds, soft, nontender, no hepatosplenomegaly Musculoskeletal: left ankle/foot without any pain, swelling, tenderness; full ROM present Skin: dressing intact left chest Psychiatric: A+Ox3, euthymic affect Results & Data Vital Signs (Past 12 Hours) Vital Signs Temp Pulse Resp BP BP Pulse Ox 01/16/19 20:05 100/35 L 01/16/19 18:30 60 15 100/47 L 92 01/16/19 18:00 60 17 85/35 L 91 01/16/19 17:30 60 21 92/37 L 91 01/16/19 17:00 60 15 105/50 L 94 01/16/19 16:45 60 17 114/57 L 92 01/16/19 16:30 60 19 100/76 95 01/16/19 16:20 37.0 C 71 18 125/63 96 01/16/19 16:15 60 16 83/63 L 94 01/16/19 16:00 36.7 C 60 19 118/44 L 92 01/16/19 11:55 36.8 C 64 22 152/72 H 93 Laboratory Results Laboratory Results - last 24 hr 01/16/19 01/16/19 05:07 05:07 WBC 6.20 RBC 3.94 L Hgb 12.2 Hct 37.9 MCV 96.2 MCH 31.0 MCHC 32.2 RDW Std Deviation 47.5 H RDW Coeff of Amalia 13.5 Plt Count 189 MPV 10.5 H Sodium 140 Potassium 4.1 Chloride 104 Carbon Dioxide 30 Anion Gap 6.0 BUN 62 H Creatinine 1.98 H Est Cr Clr Drug Dosing 28.1 Est GFR ( Amer) 27.0 Est GFR (Non-Af Amer) 23.3 BUN/Creatinine Ratio 31.3 H Glucose 86 Calcium 8.5 PG Care Time/CCT Total # of Minutes Spent Total Time Spent with Patient: Total time spent is greater than 50% in coordination of care (as documented) at patient's floor/unit and/or counseling patient: (1) DM w/o complication type II Diabetes mellitus senior living insulin use: without adjunct faculty for medical terminology use Qualified Code(s): E11.9 - Type 2 diabetes mellitus without complications (2) CAD (coronary artery disease) Associated angina: without angina Coronary Disease-Associated Artery/Lesion type: ute artery [place] vs. transplanted heart: ute heart Qualified Code(s): I25.10 - Atherosclerotic heart disease of ute coronary artery without angina pectoris (3) Atrial fibrillation Atrial fibrillation type: paroxysmal Qualified Code(s): I48.0 - Paroxysmal atrial fibrillation (4) Hypothyroidism Hypothyroidism type: acquired Qualified Code(s): E03.9 - Hypothyroidism, unspecified (5) PE (pulmonary embolism) Acute cor pulmonale presence: without acute cor pulmonale Chronicity: unspecified Pulmonary embolism type: other Qualified Code(s): I26.99 - Other pulmonary embolism without acute cor pulmonale (6) Hypotension Hypotension type: other hypotension type Qualified Code(s): I95.89 - Other hypotension
[2019-01-17] MEDS ORDERED: CEFAZOLIN 2000MG 2,000 MG/15 ML SYR IV SCH (06:00)
[2019-01-17] MEDS: LEVOTHYROXINE SODIUM 50 MCG TABLET PO SCH (06:25)
--- NOTE | 2019-01-17 06:51 | XRay Report ---
XR chest 2V routine CLINICAL HISTORY: EXACT TIME ORDERED Evaluate for pneumothorax and l tube position COMPARISON STUDY: 01/09/2019 FINDINGS: Implantable bipolar cardiac pacemaker/fibrillator. Leads in good position. No evidence for pneumothorax. IMPRESSION: Pacemaker in good position. No evidence for pneumothorax. The above report was generated using voice recognition software. It may contain grammatical, syntax or spelling errors. Electronically signed by: Georges Conway M.D. 01/17/2019 6:50 AM
[2019-01-17] MEDS: CETIRIZINE HCL 10 MG TABLET PO SCH (07:54)
[2019-01-17] MEDS: SERTRALINE HCL 50 MG TABLET PO SCH (07:54)
[2019-01-17] MEDS: predniSONE 5 MG TAB PO SCH (07:55)
[2019-01-17] MEDS: NYSTATIN CR 15 GM TUBE EXT SCH (07:55)
[2019-01-17] MEDS: CARVEDILOL 25 MG TAB PO SCH (07:58)
[2019-01-17 09:31] LABS: BUN Creatinine Ratio 28.6 (10-20); Creatinine Clr Calc Pharmacy 24.6 ml/min; Est GFR (Non-African American) 19.8; Potassium 4.2 mmol/L (3.5-5.1)
--- NOTE | 2019-01-17 11:10 | Cardiology Progress Note ---
Date of Service January 17, 2019 Assessment & Plan (1) Acute on chronic systolic (congestive) heart failure: I believe she is euhydrated now, I would try to maintain her fluid status where it is. (2) Cardiomyopathy: She has a cardiomyopathy which may be slightly progressive compared to prior recent measurements but she is not on optimal medical therapy. Continue Carvedilol 25 mg BID. The family has reservations regarding the Entresto. She is therefore back on lisinopril although I had intended to start Entresto. She needs to follow-up in heart failure clinic, I have made an appointment for her on January 23, 2019 and placed it in her discharge paperwork (3) NSVT (nonsustained ventricular tachycardia): She had a 15 beat run of nonsustained ventricular tachycardia, the rate was fast at 170 bpm. It was evidently asymptomatic. This is worrisome in view of her cardiomyopathy. She now has an ICD in place. (4) History of implantable cardioverter-defibrillator (ICD) placement: She is doing well postop day #1 following ICD implantation. The device is functioning well with appropriate pacing. I did review restrictions with her, I do have her scheduled for wound check immediately after her visit for heart failure on January 23, 2019. She is stable for discharge from my standpoint. From the surgical standpoint I believe we can restart Eliquis, if he could wait until this evening it might be preferable but I doubt she would have significant bleeding if you feel you should start it earlier. Subjective She is feeling well following pacemaker implantation and has no significant incisional discomfort, no chest discomfort or shortness of breath Physical Exam Physical Exam: The incision is clean and dry, some ecchymosis but no swelling or drainage Results & Data Vital Signs (Past 12 Hours) Vital Signs Temp Pulse Resp BP BP Pulse Ox 01/17/19 07:45 36.5 C 82 16 99/65 L 92 01/17/19 03:45 36.5 C 66 19 116/57 L 97 01/17/19 00:11 36.7 C 67 18 123/60 91 Diagnostic Findings Postop electrocardiogram: Atrial pacing with intact AV conduction with a prolonged DE interval Telemetry: Predominantly atrial pacing, normal pacemaker function Chest x-ray: Good lead position, no pneumothorax Pacemaker evaluation: Excellent pacing and sensing characteristics PG Care Time/CCT Total # of Minutes Spent Total Time Spent with Patient: Total time spent is greater than 50% in coordination of care (as documented) at patient's floor/unit and/or counseling patient:
--- NOTE | 2019-01-26 21:29 | Discharge Summary ---
Date of Service date of admission - January 09, 2019 date of discharge - January 17, 2019 Admission HPI Per Admitting Provider 78 yo female with history of chronic systolic heart failure, DVT, afib, CAD, obesity, anxiety, chronic lymphedema who presents to the ED today c/o progressive shortness of breath. She says that she first noticed some symptoms three weeks ago. They were mild and intermittent at that time. She was having a difficult time sleeping in her bed, due to dyspnea. She found it easier to sleep in her recliner. She also noted some dyspnea on exertion. She says that she has her weight taken every Sunday at personal care, she is unsure of what her trend has been, due to get weight tomorrow. Today her symptoms got worse, she had to stop three times when walking from her room to the dining vazquez which was about 100ft. She admitted to some intermittent chest pain, not associated with exertion. The pain was reproducible. She has had some loose stools as well. No abdominal pain. No fever or chills or other signs of infections. No cough In the ED her BNP was > [id number]. CXR showed some pulmonary congestion but did not show sarai pulmonary edema. Vitals were stable, breathing well. EKG without ischemic changes and troponin negative. She was given Lasix 40mg IV and asked for admission. Principal Diagnosis acute/chronic systolic CHF Discharge Exam Constitutional well developed, well nourished and + morbidly obese; no acute distress ENMT external ear and nose normal, oropharynx normal Respiratory normal respiratory effort, lungs clear to auscultation Auscultation: no rales and no wheezes Cardiovascular Rate/Rhythm: regular rate and regular rhythm Heart Sounds: normal S1, normal S2 and + murmur (1/6 LSB) Vessels: posterior tibial pulses present and dorsalis pedis pulses present; no JVD Extremities: no edema Gastrointestinal (Abdomen) normal bowel sounds, soft, nontender, no hepatosplenomegaly Skin pacer/ICD site, left chest - covered with clean dressings Psychiatric A+Ox3, euthymic affect Discharge Data Allergies Allergy/AdvReac Type Severity Reaction Status Date / Time adhesive AdvReac Intermediate RASH Verified 01/23/19 10:51 morphine AdvReac Intermediate VOMITING Verified 01/23/19 10:51 Consultations 1. [facility] 2. PT/OT Procedures Performed 1. Operation Date: 01/16/19 ICD Insertion Single or Dual - Padilla Mujica MD 2. echocardiogram- * EF 25-30% * global LV dysfunction * mild-moderate mitral regurgitation Hospital Course (1) Acute on chronic systolic (congestive) heart failure: CHF exacerbation resolved with aggressive IV diuresis. She was a net negative 15 liters of fluid during the stay. Echo this admission w/ EF 25-30%. Barragan recommendations were made by [facility]. Due to her low EF, non-sustained VT, etc BiV pacemaker/ICD was recommended by Dr Padilla Mujica. She underwent such on 01/16/19 without complications. Several adjustments were made to her cardiac medication regimen including - * coreg was reduced to 12.5mg BID * KEITH inhibitor was HELD * lasix was increased to 60mg daily She will follow-up in the CHF clinic within 1 week of discharge. Discharge weight was 107kg. (2) Left foot pain: resolved with prednisone. suspected gout. uric acid level was quite high. risk factors - CKD, previous thiazide diuretic usage. checked left foot and ankle films - both normal. continue low-dose prednisone 5mg daily for another day post-discharge and then stop. would only consider allopurinol if she has recurrent flares. (3) CKD (chronic kidney disease), stage IV: creatinine stable at 2.2 at discharge. bmp within 1 week of discharge recommended for stability. (4) CAD (coronary artery disease): history of such. cardiac catheterization in July 2007 revealed an obstructed right-sided PDA. She was noted to have a codominant system at that time. troponins were negative x 3 at time of this hospitalization. continue beta guera. (5) Atrial fibrillation: PAF. stable on telemetry except for NSVT seen on one occasion. resumed eliquis at discharge. will continue beta guera (coreg) at discharge. (6) DM w/o complication type II: last A1c was 5.8% in September 2018. pre-DM only. controlled. (7) PE (pulmonary embolism): history of such. resumed eliquis BID at time of discharge. (8) Obesity (BMI 30-39.9): BMI 38 s/p copious diuresis. (9) Hypothyroidism: most recent TSH was compensated cont synthroid (10) NSVT (nonsustained ventricular tachycardia): s/p ICD placement on 01/16/19. tolerated procedure well. will follow-up in device clinic within 1 week of discharge. (11) Hypotension: 2nd to over diuresis/volume contraction late in her stay. resolved s/p two 500 cc boluses of fluid. coreg, KEITH and lasix all held briefly. coreg ultimately resumed at 12.5mg BID. lasix resumed at 60mg daily. KEITH held at discharge. Total Time Total Time Spent Total Time Spent (In Minutes): 40 Total Time Includes: Examination of the Patient, Discharge Planning, Medication Reconciliation and Communication With Other Providers Discharge Plan Discharge Items Patient Disposition: Personal Residential Reason For Visit: ACUTE HEART FAILURE Discharge Diagnosis: 1. acute congestive heart failure - significantly improved. 2. probable gout attack of left foot - resolved. 3. placement of defibrillator/pacer device. Discharge Goals: Diagnostic testing and Therapeutic intervention Activity: Per 'Additional Instructions' section Bathing Comment: ok to shower starting tomorrow but keep ICD incision clean/dry; no tub bath Non-emergency contact: Primary Care Provider and Lead Mechanical Engineer Call non-emergency contact if: you have any medication questions, your symptoms worsen, your pain is not controlled, your temperature is above 100.5, your wound has increased redness, your wound has increased drainage and your wound pain has increased Follow-up/Referrals: Padilla Mujica MD [Physician] - 01/23/19 11:30 am (Please, follow up at [facility] Cardiology Office for a wound check o January 23 at 11:30 am. ) Hayde Brice PA-C [Physician Medical Assembly] - 01/23/19 10:30 am (Please, follow up at [facility] Cardiology Office / CHF Clinic with Edwina Brice PA-C on January 23 at 10:30 am. *The office is located in [address] of [facility] [employer] [facility]. This is the big building next to this hospital. If you need to change this appointment, call the office at [phone].) [employer] [Primary Care Provider] - Diet: Carb Consistent or DM2 and Heart Healthy Fluids: 1800ml (7 cups) Addtl Provider Instructions: You were treated for acute on chronic congestive heart failure with IV lasix and you improved significantly while here. Your shortness of breath and other symptoms resolved. Your weight at time of discharge is 107 kg (235 pounds). During the stay you also developed suspected gout of your left foot and ankle. This improved with prednisone. Lastly, Dr Mujica from cardiology implanted a dual pacemaker/defibrillator device due to your low heart function and high risk of ventricular arrhythmias (heart rhythms that can place your life at risk). Recommendations: 1. ACTIVITY RECOMMENDATIONS following your pacemaker/ICD implantation: * Do not raise the left arm over your head or behind your back for 2 weeks. SPECIAL CARE INSTRUCTIONS: * If bleeding occurs, apply direct pressure to area for 5 minutes. * Call your doctor if you have severe pain, fever, drainage or bleeding at site. * Keep dressing on and dry for 48 hours then remove. * Keep any scheduled doctor's appointment. * Implant Card - hand held device with website information given. SKIN IRRITATION: * You may experience some redness and/or swelling in the area where radiation was administered. If any skin irritation occurs, please contact your family physician. 2. Congestive Heart Failure Instructions: Call 911 and go to the Emergency Room if: * You have tightness or pain in your chest that does not go away with rest or Nitroglycerin * You are very short of breath even with rest Call your doctor if any of the following symptoms or problems start or get worse: * Shortness of breath or difficulty breathing * Wake up at night short of breath * Chest pain * Cough * Swelling of your hands, fee, or legs * More fatigued or tired with your normal activity * Palpitations - sudden fast heart beats WEIGHT * Weigh yourself every morning after using the bathroom. * Use the same scale. * Wear the same amount of clothing. * Write your weight down on your chart. * Call your doctors if you gain more than 2-3 pounds in 1-2 days. This is often a sign of fluid retention from your congestive heart failure. Do not wait -- call right away as your doctors can then adjust your medications for fluid weight gain.* MEDICATIONS * Use this discharge instruction sheet for instructions. * Take your medications at the time your doctor ordered. * Do not skip a dose of your medicines. * If you miss a dose of medicine, take as soon as possible, but DO NOT DOUBLE A DOSE. * Read your medicine information when you get home. * Know all of the side effects of your medicine. * Call your doctor's office if you have any side effects. * Be sure all of your doctors know what medicine and herbs you take (including cold, flu, and herbal medicine). * Pain Medicine: If you do not get relief from your pain, please call your doctor for help. Take the following with you to your follow-up doctor appointments: * Weight Chart * Medication List * List of questions Do not drink excessive alcohol, beer or wine. 3. Medication changes/additions - * DECREASE your coreg (carvedilol) to 12.5mg twice daily (from 25mg twice daily) * HOLD your lisinopril for now * INCREASE your lasix (furosemide) to 60mg once daily in the morning (you were previously taking 40mg daily) * TAKE prednisone 5mg once on Sunday, 01/18 then stop * TAKE eliquis blood thinner TWICE A DAY only (you were previously taking it three times a day) 4. Again check your weight EVERY DAY in the morning on the same scale. Write these numbers down in a notebook for the interactive developer. 5. Follow-up -- see separate section. 6. Return to [facility] if -- * you have fevers over 100.5 degrees * you have worsening shortness of breath or chest pains * you have rapidly rising weights due to fluid retention * you have redness, swelling or drainage from your ICD incision site in the upper left chest * you have severe joint pains * you feel dizzy or lightheaded * your defibrillator device shocks you (it is not subtle when it happens -- you will know when it shocks you!) * any other concerns Prescriptions: New carvedilol 25 mg Tablet 12.5 mg PO BID Qty: 60 RF: 5 Continued levothyroxine 50 mcg capsule 50 mcg PO DAILY Qty: 30 RF: 5 amoxicillin 500 mg Capsule 500 mg PO DIRECTED RF: 0 cetirizine 10 mg Tablet 5 mg PO DAILY RF: 0 diphenoxylate-atropine 2.5-0.025 mg Tablet 1 tab PO QID PRN (Reason: Diarrhea) RF: 0 tramadol 50 mg Tablet 50 mg PO HS RF: 0 tramadol 50 mg Tablet 50 mg PO DAILY PRN (Reason: Pain) RF: 0 acetaminophen [Tylenol Arthritis Pain] 650 mg Tablet Extended Release 650 mg PO Q12H RF: 0 ranitidine HCl 150 mg Tablet 150 mg PO BID RF: 0 docusate sodium [Doc-Q-Lace] 100 mg Capsule 100 mg PO DAILY PRN (Reason: Constipation) RF: 0 lorazepam 1 mg Tablet 1 mg PO DAILY PRN (Reason: Anxiety) RF: 0 lorazepam 1 mg Tablet 1 mg PO HS RF: 0 polyethylene glycol 3350 17 gram/dose Powder 17 g PO DAILY PRN (Reason: Constipation) RF: 0 ondansetron 4 mg Tablet,Disintegrating 4 mg PO Q8H PRN (Reason: Nausea) RF: 0 sertraline 50 mg Tablet 75 mg PO DAILY RF: 0 loratadine 10 mg Tablet 10 mg PO DAILY PRN (Reason: Diarrhea) RF: 0 Vision Plus Lutein Tablet 1 tab PO DAILY RF: 0 multivitamin Tablet,Chewable 2 tab PO DAILY RF: 0 Eliquis 2.5 mg Tablet 2.5 mg PO BID Qty: 60 RF: 0 Discontinued furosemide 40 mg tablet 40 mg PO DAILY Qty: 30 RF: 5 lisinopril 5 mg Tablet 5 mg PO DAILY RF: 0 Eliquis 2.5 mg Tablet 2.5 mg PO TID RF: 0 No Action furosemide 40 mg tablet 40 mg PO DAILY Qty: 45 RF: 5 Stand-Alone Forms: [facility] Discharge Orders: Discharge Order (Routine); Ordered 01/17/19 Ordered By: Sebastian Bañuelos Admission Data Admit Date/Time: 01/10/19 10:32 Attending Provider: Sebastian Bañuelos Admit Provider: Alexey Elias [facility] Other Providers: Alexey Elias ; Christ Lund Service: Telemetry Other Interventions: Discharge Summary Assessment (RN) Last Done: 01/17/19 16:09 Pending Studies at Discharge: No DC Date/Time DO NOT enter until pt leaves facility: 01/17/19 16:20
== END 2019-01-17 16:20 | disposition home or self-care (01) | DRG 292 ==
LOC: ED 12:40 → 2E 12:40 → SUATTDRO 01-10 10:32
PROC: EPB.ICD (2019-01-16 14:30)
DX: Z96.641 Presence of right artificial hip joint; E78.5 Hyperlipidemia, unspecified; E87.5 Hyperkalemia; I48.2 Chronic atrial fibrillation; I48.3 Typical atrial flutter; N18.4 Chronic kidney disease, stage 4 (severe); I50.23 Acute on chronic systolic (congestive) heart failure; Z68.38 Body mass index [BMI] 38.0-38.9, adult; Z86.73 Personal history of transient ischemic attack (TIA), and cerebral infarction without residual deficits; I42.9 Cardiomyopathy, unspecified; Z88.5 Allergy status to narcotic agent; I25.10 Atherosclerotic heart disease of native coronary artery without angina pectoris; Z86.718 Personal history of other venous thrombosis and embolism; Z96.653 Presence of artificial knee joint, bilateral; Z86.711 Personal history of pulmonary embolism; I89.0 Lymphedema, not elsewhere classified; E66.9 Obesity, unspecified; I44.7 Left bundle-branch block, unspecified; M10.9 Gout, unspecified; E11.22 Type 2 diabetes mellitus with diabetic chronic kidney disease

== ENCOUNTER 2021-01-13 12:22 | Inpatient (IN) ==
[2021-01-13] MEDS ORDERED: FAMOTIDINE 20MG IV PUSH 20 MG/5 ML SYR IV STA (13:21)
[2021-01-13] MEDS ORDERED: PANTOprazole 40 MG in SYRINGE 0 ML IV ONE (13:21)
[2021-01-13] MEDS ORDERED: SODIUM CHLORIDE 0.9% 500 ML IV STA (13:21)
--- NOTE | 2021-01-13 13:30 | Emergency Department Note ---
Impression & Plan Acute lower GI bleeding, Pelvic mass, Diverticulosis ED Provider Note NAME: RACHELE WASHINGTON AGE: 80 SEX: F : 1940 ARRIVES VIA: Ambulance INFORMANT: Patient, ED PROVIDER(S): Christ Levine DO CHIEF COMPLAINT: GI bleeding HPI: The patient is an 80-year-old female who presented to the emergency department from the intermediate for an evaluation of GI bleeding. The patient is noticed some dark bowel movements with clots over the course the last 48 hours. She denies having any abdominal pain. She does complain of some weakness and dizziness. She denies having any chest pain or difficulty breathing. She has no dyspnea on exertion. She does not notice any worsening lower extremity swelling. She does take oral anticoagulation for atrial fibrillation. She was recently on a course of prednisone for gout but she stopped taking his medication a few weeks ago. She denies having any vomiting. She had no hematemesis. She states symptoms are worsened with each bowel movement. She does have some rectal pain as well. She was treated with Imodium. ROS: See above HPI for pertinent positives & negatives. A total of 10 systems reviewed and were otherwise negative. PAST MEDICAL HISTORY: See Below PAST SURGICAL HISTORY: See Below FAMILY HISTORY: See Below SOCIAL HISTORY: See Below HOME MEDICATIONS: See Below ALLERGIES: See Below VITALS: See Below PHYSICAL EXAMINATION: GENERAL: Patient is awake alert in no acute distress patient is resting comfortably and showing no signs of anxiety EYES: The conjunctivae are pale. The pupils are round and reactive. EARS, NOSE, MOUTH AND THROAT: The nose is without any evidence of any deformity. NECK: The neck is nontender and supple. RESPIRATORY: Normal respiratory effort is noted there is no evidence of wheezing rhonchi or rales CARDIOVASCULAR: Regular rate and rhythm noted there no murmurs rubs or gallops normal S1 normal S2. GASTROINTESTINAL: The abdomen is soft and mildly distended. There is left upper quadrant tenderness to palpation but no guarding rigidity. Rectal exam revealed maroon and black stool which was strongly heme positive. MUSCULOSKELETAL/EXTREMITIES: There is no evidence of gross deformity full range of motion is noted in the hips and shoulders. SKIN: Pedal edema was noted bilaterally. Venous stasis changes were also noted. NEUROLOGIC: Patient is awake alert and oriented x3. MEDICAL DECISION MAKING: The patient is an 80-year-old female who presented to the emergency department for an evaluation of lower GI bleeding. The patient currently resides at a [facility]. The patient does take oral anticoagulation for atrial fibrillation. I discussed the patient's laboratory and radiographic studies with her. She did have a significant drop in her hemoglobin compared to previous. The patient received blood transfusion in the emergency department. I consented the patient for blood transfusion. The patient was found to have signs of diverticulosis but also a pelvic mass on CT. The [facility] was notified about the patient. They will evaluate the patient in the emergency department for further management and disposition. Triage Nursing notes reviewed. Prior medical records reviewed Vital Signs: reviewed and remarkable for hypotension. Differential diagnosis: Diverticulosis, AVM, coagulopathy, colitis, inflammatory bowel disease, malignancy, Maggy-Rosales tear, esophagitis, peptic ulcer disease, variceal bleed, gastritis, epistaxis, fissure, hemorrhoids, as well as other pathologies. ER treatment provided: See below Diagnostics interpreted by me: ECG: EKG was obtained in the emergency department. My interpretation is sinus rhythm at 71 bpm. First-degree AV block was noted. High lateral T wave versions were also noted. Poor R wave progression was noted. This was compared to a tracing from June 122019. No significant changes were noted. Cardiac Monitoring: An order was placed for continuous cardiac monitoring. The monitor shows a rate of 69 bpm with sinus rhythm. Laboratory studies: As stated above and show below. Imaging studies: See below Consultation(s): 1440: Dr. Oviedo who is on-call for the [facility] was notified about the patient. They will evaluate the patient in the emergency department. ED COURSE: Procedures: none PDMP:reviewed and no issues Critical Care: I have personally spent greater than 40 minutes of critical care time in the direct management of this patient. This includes bedside care, interpretation of diagnostic studies, and testing, discussion with consultants, patient, and family members, and other required patient management activities. This 40 minutes is in excess of all separately billable procedures. Past Med/Surg History Medical History Atrial fibrillation Cholelithiases CKD (chronic kidney disease) DVT (deep venous thrombosis) Dyslipidemia Elevated LFTs Lymphedema NSVT (nonsustained ventricular tachycardia) PE (pulmonary embolism) TIA (transient ischemic attack) "november 2012" UTI (urinary tract infection) Surgical History H/O cardiac catheterization "IN 2005 - as per patient - this was normal" Hip joint replacement status "RIGHT" History of carpal tunnel surgery History of cholecystectomy Hx of cardiac pacemaker S/P TKR (total knee replacement) "BILATERAL" Status post cystoscopy with ureteral stent placement Family History Other Cancer Family history non-contributory Denies family history of Heart disease Social History Smoking Status: Never smoker Hx Alcohol Use: No Hx Substance Use: No Preferred Language: Liberian Communication Ability: Effective Beliefs That Will Affect Care: None marital status: / Current Living Situation: Personal Care Facility current occupational status: retired Feels Safe at Home: Yes Physical Activity Frequency: Does not Exercise Assistive Devices: Glasses and Walker Allergies Allergies Allergy/AdvReac Type Severity Reaction Status Date / Time montelukast Allergy Unknown Unverified 11/09/20 13:43 Sulfa (Sulfonamide Allergy Unknown Unverified 11/09/20 13:43 Antibiotics) adhesive AdvReac Intermediate RASH Verified 11/09/20 13:43 morphine AdvReac Intermediate VOMITING Verified 11/09/20 13:43 Home Meds Home Medications Medication Instructions Recorded Confirmed acetaminophen 650 mg 650 mg PO Q12H 01/09/19 11/09/20 tablet,extended release (Tylenol Arthritis Pain) amoxicillin 500 mg capsule 500 mg PO DIRECTED 01/09/19 11/09/20 multivitamin 2 tab PO DAILY 01/09/19 11/09/20 sertraline 50 mg tablet 75 mg PO DAILY 01/09/19 11/09/20 aspirin 81 mg tablet,delayed 81 mg PO DAILY 02/10/19 11/09/20 release (Aspirin Low Dose) carvedilol 12.5 mg tablet (Coreg) 12.5 mg PO BID 06/12/19 11/09/20 menthol 0.44 %-zinc oxide 20.6 % 1 applic TOPICAL QID PRN 06/12/19 11/09/20 topical ointment (Calmoseptine) menthol 4 % topical gel (Biofreeze 1 applic TOPICAL UD PRN 06/12/19 11/09/20 (menthol)) vit A 1,000 unit-C 200 mg-E 60 1 tab PO DAILY 06/12/19 11/09/20 unit-lutein 2 mg and minerals tablet (Ocuvite with Lutein) zinc oxide-cod liver oil 40 % 1 applic TOPICAL UD PRN 06/12/19 11/09/20 topical paste (Desitin) fexofenadine 180 mg tablet 180 mg PO DAILY 10/20/19 11/09/20 (Allergy Relief (fexofenadine)) Previous Rx's Medication Instructions Recorded apixaban 2.5 mg tablet (Eliquis) 2.5 mg PO BID #60 tab 01/17/19 atorvastatin 40 mg tablet 40 mg PO DAILY #90 tab 02/19/19 furosemide 40 mg tablet 40 mg PO DAILY #45 tab 03/19/20 furosemide 80 mg tablet 40 mg PO 2XWK #30 tab 03/19/20 lorazepam 1 mg tablet 1 mg PO DAILY #30 tab 06/28/20 lorazepam 1 mg tablet 1 mg PO DAILY PRN #30 tab 06/28/20 loratadine 10 mg tablet 10 mg PO DAILY PRN #30 tab 08/24/20 psyllium seed (sugar) oral powder See Rx Instructions PO DAILY #822 g 08/24/20 (Fiber Therapy(psyl seed-sugar)) prednisone 20 mg tablet 20 mg PO BID #10 tab 10/06/20 levothyroxine 75 mcg tablet 75 mcg PO DAILY #30 tab 10/12/20 diphenoxylate-atropine 2.5 1 tab PO QID PRN #120 tab 10/20/20 mg-0.025 mg tablet ondansetron 4 mg disintegrating 4 mg PO Q8H PRN #30 tab 11/03/20 tablet cephalexin 500 mg capsule 500 mg PO BID #20 cap 11/04/20 tramadol 50 mg tablet 50 mg PO .COMPLEX #120 tab 11/22/20 Results & Data (ED) Vital Signs Vital Signs - 24 hr 01/13/21 12:56 01/13/21 13:01 Temperature 36.5 C Temperature Source Oral Pulse Rate 67 69 Pulse Rate from SpO2 Sensor 67 Respiratory Rate 20 20 Respiratory Depth Normal Respiratory Pattern Regular Blood Pressure 95/54 L 110/48 L Blood Pressure Mean 67 68 Pulse Oximetry 97 95 Oxygen Delivery Method Room Air Sepsis Recent Fever Within 48 Hours No Sepsis New/Unexplained Change in Mental Status No Sepsis Action Taken by Nursing No Action Required Home Medications Current Medication List: was personally reviewed by me Laboratory Data Attestation: I reviewed the patient's lab results. Result diagrams: 01/13/21 13:49 01/13/21 13:49 Lab Results 01/13/21 01/13/21 01/13/21 Range/Units 13:49 13:49 13:49 WBC 8.10 (4.8-10.8) K/uL RBC 2.76 L (4.2-5.4) M/uL Hgb 8.6 L (12.0-16.0) g/dL Hct 27.0 L (37-47) % MCV 97.8 (80-100) fL MCH 31.2 (25-34) pg MCHC 31.9 L (32-36) g/dL RDW Std Deviation 50.7 H (36.4-46.3) fL RDW Coeff of Amalia 14.3 (11.5-14.5) % Plt Count 200 (130-400) K/uL MPV 10.7 H (7.4-10.4) fL Immature Gran % (Auto) 0.4 % Neut % (Auto) 64.2 % Lymph % (Auto) 22.6 % [place] % (Auto) 11.0 % Eos % (Auto) 1.6 % Baso % (Auto) 0.2 % Neut # (Auto) 5.20 (1.4-6.5) K/uL Lymph # (Auto) 1.83 (1.2-3.4) K/uL [place] # (Auto) 0.89 H (0.11-0.59) K/uL Eos # (Auto) 0.13 (0-0.5) K/uL Baso # (Auto) 0.02 (0-0.2) K/uL Immature Gran # (Auto) 0.03 H (0.00-0.02) K/uL PT 11.3 (9.0-12.0) Seconds INR 1.1 (0.9-1.1) APTT 27.3 (21.0-31.0) Seconds PTT Ratio 1.0 Sodium 139 (136-145) mmol/L Potassium 5.1 (3.5-5.1) mmol/L Chloride 111 H (98-107) mmol/L Carbon Dioxide 21 (21-32) mmol/L Anion Gap 7.0 (3-11) BUN 98 H (7-18) mg/dl Creatinine 2.14 H (0.6-1.2) mg/dl Est Cr Clr Drug Dosing Not Reportable Est GFR ( Amer) 24.2 ml/min Est GFR (Non-Af Amer) 20.9 ml/min BUN/Creatinine Ratio 45.7 H (10-20) Glucose 95 (70-99) mg/dl Calcium 8.4 L (8.5-10.1) mg/dl Total Bilirubin 0.3 (0.2-1) mg/dl AST 13 L (15-37) U/L ALT 15 (12-78) U/L Alkaline Phosphatase 75 (45-117) U/L Troponin I < 0.015 (0-0.045) ng/ml Total Protein 6.5 (6.4-8.2) gm/dl Albumin 3.3 L (3.4-5.0) gm/dl Globulin 3.2 (2.5-4.0) gm/dl Albumin/Globulin Ratio 1.0 (0.9-2) Lipase 298 (73-393) U/L Crossmatch 01/13/21 Range/Units 14:02 WBC (4.8-10.8) K/uL RBC (4.2-5.4) M/uL Hgb (12.0-16.0) g/dL Hct (37-47) % MCV (80-100) fL MCH (25-34) pg MCHC (32-36) g/dL RDW Std Deviation (36.4-46.3) fL RDW Coeff of Amalia (11.5-14.5) % Plt Count (130-400) K/uL MPV (7.4-10.4) fL Immature Gran % (Auto) % Neut % (Auto) % Lymph % (Auto) % [place] % (Auto) % Eos % (Auto) % Baso % (Auto) % Neut # (Auto) (1.4-6.5) K/uL Lymph # (Auto) (1.2-3.4) K/uL [place] # (Auto) (0.11-0.59) K/uL Eos # (Auto) (0-0.5) K/uL Baso # (Auto) (0-0.2) K/uL Immature Gran # (Auto) (0.00-0.02) K/uL PT (9.0-12.0) Seconds INR (0.9-1.1) APTT (21.0-31.0) Seconds PTT Ratio Sodium (136-145) mmol/L Potassium (3.5-5.1) mmol/L Chloride (98-107) mmol/L Carbon Dioxide (21-32) mmol/L Anion Gap (3-11) BUN (7-18) mg/dl Creatinine (0.6-1.2) mg/dl Est Cr Clr Drug Dosing Est GFR ( Amer) ml/min Est GFR (Non-Af Amer) ml/min BUN/Creatinine Ratio (10-20) Glucose (70-99) mg/dl Calcium (8.5-10.1) mg/dl Total Bilirubin (0.2-1) mg/dl AST (15-37) U/L ALT (12-78) U/L Alkaline Phosphatase (45-117) U/L Troponin I (0-0.045) ng/ml Total Protein (6.4-8.2) gm/dl Albumin (3.4-5.0) gm/dl Globulin (2.5-4.0) gm/dl Albumin/Globulin Ratio (0.9-2) Lipase (73-393) U/L Crossmatch See Detail Administered Medications Discontinued Medications Sodium Chloride (Nss) 500 mls @ 999 mls/hr IV .Q31M STA Stop: 01/13/21 13:51 Last Admin: 01/13/21 14:21 Dose: 999 mls/hr Documented by: [id number] Pantoprazole Sodium 40 mg/ (Syringe) 10 mls @ 5 mls/min IV NOW ONE Stop: 01/13/21 13:22 Last Admin: 01/13/21 14:21 Dose: 5 mls/min Documented by: [id number] Famotidine (Pepcid 20mg Iv Push) 20 mg in 5 mls @ 2.5 mls/min IV NOW STA Stop: 01/13/21 13:22 Last Admin: 01/13/21 14:21 Dose: 2.5 mls/min Documented by: [id number] Imaging Data Radiologist's Impression: Chest X-Ray 01/13/21 13:21 XR chest 1V portable HISTORY: 80 years-old Female Chest Pain acute atypical chest pain COMPARISON: Chest radiograph 06/12/2019 TECHNIQUE: Portable AP view of the chest FINDINGS: Cardiac silhouette is enlarged. Left subclavian pacer/AICD. Mild chronic interstitial coarsening. No pneumothorax, large pleural effusion, airspace consolidation or overt pulmonary edema. Unchanged blunting of the costophrenic angle suggestive of atelectasis versus trace effusions. Degenerative changes of the shoulders and spine. IMPRESSION: Cardiomegaly without acute process. ACT 112: Negative or not required by law. The above report was generated using voice recognition software. It may contain grammatical, syntax or spelling errors. Electronically signed by: Dominic Peña M.D. 01/13/2021 1:39 PM Abdomen/Pelvis CT 01/13/21 13:42 CT SCAN OF THE ABDOMEN AND PELVIS WITHOUT IV CONTRAST CLINICAL HISTORY: Left upper quadrant abdominal pain. COMPARISON STUDY: Abdominal CT dated 10/04/2016. TECHNIQUE: CT scan of the abdomen and pelvis is performed from the lung bases to the proximal femora. Images are reviewed in the axial, sagittal, and coronal planes. IV contrast was not administered for this examination. Note that the examination was performed in suboptimal fashion without oral and IV contrast. A dose lowering technique was utilized adhering to the principles of ALARA. The examination is degraded by streak artifact from the arms which could not be elevated above the abdomen or pelvis. There is also streak artifact from the body wall abutting the CT gantry. CT DOSE: 1863.97 mGy.cm FINDINGS: Lung bases: The heart is mildly enlarged and without pericardial effusion. Pacemaker leads are noted. Diminished attenuation of the cardiac blood pool as compared to the myocardium suggests anemia. A tiny hiatal hernia is noted. The lung bases are clear noting bibasilar scarring/atelectasis. Liver: The unenhanced liver is cirrhotic in morphology and heterogeneous in attenuation. There is nodularity of the hepatic surface contour. There is no intrahepatic biliary ductal dilatation. Gallbladder: Surgically absent noting clips in the gallbladder fossa. Spleen: Normal in size and attenuation. Pancreas: The unenhanced pancreas is atrophic and grossly unremarkable. Adrenal glands: Unremarkable. Kidneys: The unenhanced kidneys are atrophic and without hydronephrosis. There are no renal calculi identified. There is no evidence of contour deforming renal mass lesion. Abdominal vasculature: The abdominal aorta is normal in course and caliber noting moderate atherosclerotic calcification. Bowel: There is moderate to advanced sigmoid diverticulosis without CT evidence of acute diverticulitis. No bowel obstruction is seen. Mild fecal retention is noted throughout the colon. The appendix is normal as visualized. Peritoneum: No intraperitoneal free air or abdominal ascites is identified. There is evidence of peritoneal metastatic disease. With extensive omental caking and peritoneal nodularity of omental caking is best seen on axial image #192 and the left ventral abdomen. Tiny peritoneal implants in the left upper quadrant are seen on image #120. A 2.1 cm implant in the gastrohepatic space is seen on image #124. Lymphadenopathy: None. Pelvic viscera: Evaluation of the pelvis is degraded by streak artifact from a right hip arthroplasty. The bladder is normal as visualized. The uterus is surgically absent. There is a 6.2 x 5.3 cm solid and cystic right adnexal mass lesion seen on image #302. This is likely related to the right ovary, and appears to be tethered to the adjacent sigmoid colon seen on image #319. Skeletal structures: The skeletal structures are osteopenic. No lytic or blastic lesions are seen. There is moderate to advanced lumbosacral spondylosis. A right hip arthroplasty is in place. Degenerative change is noted in the left hip. IMPRESSION: 1. Suboptimal examination without oral and IV contrast. There is also significant streak artifact. 2. There is a 6.2 cm solid and cystic mass in the right adnexa, likely related to the right ovary. Ovarian cancer is the diagnosis of exclusion. 3. The right adnexal mass appears tethered to the adjacent sigmoid colon. 4. There is evidence of peritoneal metastatic disease with numerous peritoneal implants and extensive omental caking. No ascites is identified. 4. Moderate to severe sigmoid diverticulosis without CT evidence of acute diverticulitis. 7. Cirrhotic liver morphology. 8. Additional findings as above. ACT 112: Positive. There are findings on this exam that require communication between the performing entity and the patient following Patient Test Result Information Act ([place] Act 112) guidelines. Electronically signed by: Gee Hamilton M.D. 01/13/2021 2:43 PM Discharge Plan Visit Data Chief Complaint: GI Assessment ED Provider: Christ Levine Discharge Problem: Acute lower GI bleeding, Pelvic mass, Diverticulosis Patient Disposition: Being Evaluated by Hospitalist Condition: Good Forms Stand Alone Forms: My [facility] Prescriptions Prescriptions: No Action atorvastatin 40 mg tablet 40 mg PO DAILY Qty: 90 RF: 1 furosemide 40 mg tablet 40 mg PO DAILY Qty: 45 RF: 5 furosemide 80 mg tablet 40 mg PO 2XWK Qty: 30 RF: 0 lorazepam 1 mg tablet 1 mg PO DAILY Qty: 30 RF: 5 lorazepam 1 mg tablet 1 mg PO DAILY PRN (Reason: Anxiety) Qty: 30 RF: 2 loratadine 10 mg tablet 10 mg PO DAILY PRN (Reason: allergy symptoms) Qty: 30 RF: 0 Fiber Therapy(psyl seed-sugar) Powder See Rx Instructions PO DAILY Qty: 822 RF: 0 Hold Instructions: Diarrhea levothyroxine 75 mcg tablet 75 mcg PO DAILY Qty: 30 RF: 11 diphenoxylate-atropine 2.5-0.025 mg tablet 1 tab PO QID PRN (Reason: Diarrhea) Qty: 120 RF: 3 ondansetron 4 mg tablet,disintegrating 4 mg PO Q8H PRN (Reason: Nausea) Qty: 30 RF: 0 cephalexin 500 mg capsule 500 mg PO BID Qty: 20 RF: 0 tramadol 50 mg tablet 50 mg PO .COMPLEX Qty: 120 RF: 2 fexofenadine [Allergy Relief (fexofenadine)] 180 mg tablet 180 mg PO DAILY RF: 0 prednisone 20 mg tablet 20 mg PO BID Qty: 10 RF: 5 aspirin [Aspirin Low Dose] 81 mg tablet,delayed release (DR/EC) 81 mg PO DAILY RF: 0 amoxicillin 500 mg Capsule 500 mg PO DIRECTED RF: 0 acetaminophen [Tylenol Arthritis Pain] 650 mg Tablet Extended Release 650 mg PO Q12H RF: 0 sertraline 50 mg Tablet 75 mg PO DAILY RF: 0 multivitamin Tablet,Chewable 2 tab PO DAILY RF: 0 Eliquis 2.5 mg Tablet 2.5 mg PO BID Qty: 60 RF: 0 carvedilol [Coreg] 12.5 mg tablet 12.5 mg PO BID RF: 0 Ocuvite with Lutein 1,000 unit-200 mg-60 unit-2 mg Tablet 1 tab PO DAILY RF: 0 Calmoseptine 0.44-20.6 % Ointment 1 applic TOPICAL QID PRN (Reason: FLARE UPS) RF: 0 Desitin 40 % Paste 1 applic TOPICAL UD PRN (Reason: IRRITATION) RF: 0 Biofreeze (menthol) 4 % Gel 1 applic TOPICAL UD PRN (Reason: Pain) RF: 0 Referrals [email or web address] -
--- NOTE | 2021-01-13 13:41 | XRay Report ---
XR chest 1V portable HISTORY: 80 years-old Female Chest Pain acute atypical chest pain COMPARISON: Chest radiograph 06/12/2019 TECHNIQUE: Portable AP view of the chest FINDINGS: Cardiac silhouette is enlarged. Left subclavian pacer/AICD. Mild chronic interstitial coarsening. No pneumothorax, large pleural effusion, airspace consolidation or overt pulmonary edema. Unchanged blun ting of the costophrenic angle suggestive of atelectasis versus trace effusions. Degenerative changes of the shoulders and spine. IMPRESSION: Cardiomegaly without acute process. ACT 112: Negative or not required by law. The above report was generated using voice recognition software. It may contain grammatical, syntax o r spelling errors. Electronically signed by: Dominic Peña M.D. 01/13/2021 1:39 PM
[2021-01-13] MEDS ORDERED: SODIUM CHLORIDE 0.9% 250 ML IV PRN ×2 (13:47→21:50)
[2021-01-13 14:11] LABS: Basophils # (auto) 0.02 K/uL (0-0.2); Basophils % (auto) 0.2 %; Eosinophils # (auto) 0.13 K/uL (0-0.5); Eosinophils % (auto) 1.6 %; Hemoglobin 8.6 g/dL (12.0-16.0); Immature Granulocytes # (auto) 0.03 K/uL (0.00-0.02); Immature Granulocytes % (auto) 0.4 %; Lymphocytes # (auto) 1.83 K/uL (1.2-3.4); Lymphocytes % (auto) 22.6 %; Mean Corpuscular Hemoglobin 31.2 pg (25-34); Mean Corpuscular Hgb Conc 31.9 g/dL (32-36); Mean Corpuscular Volume 97.8 fL (80-100); Mean Platelet Volume 10.7 fL (7.4-10.4); Monocytes # (auto) 0.89 K/uL (0.11-0.59); Neutrophils % (auto) 64.2 %; Platelet Count 200 K/uL (130-400); RDW Coefficient of Variation 14.3 % (11.5-14.5); RDW Standard Deviation 50.7 fL (36.4-46.3); Red Blood Count 2.76 M/uL (4.2-5.4)
[2021-01-13 14:28] LABS: Alanine Aminotransferase 15 U/L (12-78); Albumin Level 3.3 gm/dl (3.4-5.0); Aspartate Aminotransferase 13 U/L (15-37); BUN Creatinine Ratio 45.7 (10-20); Blood Urea Nitrogen 98 mg/dl (7-18); Calcium 8.4 mg/dl (8.5-10.1); Carbon Dioxide 21 mmol/L (21-32); Chloride 111 mmol/L (98-107); Est GFR (African American) 24.2 ml/min; Est GFR (Non-African American) 20.9 ml/min; Glucose 95 mg/dl (70-99); Lipase 298 U/L (73-393); Potassium 5.1 mmol/L (3.5-5.1); Sodium 139 mmol/L (136-145)
[2021-01-13 14:31] LABS: INR 1.1 (0.9-1.1); Partial Thromboplastin Time 27.3 Seconds (21.0-31.0); Prothrombin Time 11.3 Seconds (9.0-12.0)
[2021-01-13 14:33] LABS: Alkaline Phosphatase 75 U/L (45-117); Bilirubin,Total 0.3 mg/dl (0.2-1); Globulin 3.2 gm/dl (2.5-4.0); Total Protein 6.5 gm/dl (6.4-8.2); Troponin I < 0.015 ng/ml (0-0.045)
--- NOTE | 2021-01-13 14:38 | History & Physical Report ---
Date of Service January 13, 2021 Assessment & Plan (1) Acute lower GI bleeding: Plan: 80 y/o F Hx HTN, HLD, hypothyroidism, DM II, gout, cirrhosis, CKD IV, PAF, CAD, systolic CHF. She presents with black-colored bowel movements with blood clots over the past 2 days. She has not had abdominal pain, nausea/vomiting or fevers. Initial labs are notable for hemoglobin of 8.6, down from a recent of 11.4. BUN is markedly elevated with a stable creatinine. A CT abdomen demonstrated a 6.2cm R ovarian/adnexal mass with peritoneal mets. 1) Lower GI bleed - a transfusion was ordered in the ER due to her cardiac history. Serial Hb ordered, GI consulted, PPi provided. 2) Adnexal mass - presumed ovarian CA - the pt has requested an oncology consult. This is not likely related to her current predicament. 3) CHF - we have held her Lasix at present, will continue Carvedilol. 4) CAD - no evidence of ACS - hold ASA - cont statin, Carvedilol. 5) PAF - sinus on admission - cont eta guera - Eliquis held 6) CKD IV - creatinine is stable 7) DM II - siding scale 8) HTN, HLD - cont statin, carvedilol 9) Gout - will stop or taper down prednisone Full code - SCDs Total time for this admit including review of labs, meds, imaging, records - discussion with pt and ER attending - 51 min (2) Pelvic mass: (3) Diverticulosis: (4) Anemia: (5) Gout: (6) CAD (coronary artery disease): (7) CKD (chronic kidney disease), stage IV: History of Present Illness Chief Complaint: GI bleed Primary Care Provider: [facility] 80 y/o F Hx HTN, HLD, hypothryoidism, DM II, gout, cirrhosis, CKD IV, PAF, CAD, systolic CHF. She presents with black-colored bowel movements with blood clots over the past 2 days. She has not had abdominal pain, nausea/vomiting or fevers. Initial labs are notable for hemoglobin of 8.6, down from a recent of 11.4. BUN is markedly elevated with a stable creatinine. A CT abdomen demonstrated a 6.2cm R ovarian/adnexal mass with peritoneal mets. PMH: 1) HTN 2) HLD 3) DM II 4) CKD IV 5) PAF 6) Systolic CHF - ischemic cardiomyopathy - EF 30-35% 7) Gout 8) Cirrhosis 9) CAD - 100% PDA 2007 10) Cerebrovascular e with 100% LICA stenosis - histroy of TIA 11) Hypothyroidism 12) Morbid obesity 13) LBBB Surgical: 1) Pacer/defib 2) BL TKA 3) R REYNA Social: Does not drink or smoke Family: Mother due to ovarian CA Allergies Allergy/AdvReac Type Severity Reaction Status Date / Time montelukast Allergy Unknown Unknown Unverified 01/13/21 15:15 Sulfa (Sulfonamide Allergy Unknown Unknown Unverified 01/13/21 15:15 Antibiotics) adhesive AdvReac Intermediate RASH Verified 01/13/21 15:15 morphine AdvReac Intermediate VOMITING Verified 01/13/21 15:15 Home Medications Medication Instructions Recorded Confirmed Type acetaminophen 650 mg 650 mg PO Q12H 01/09/19 11/09/20 History tablet,extended release (Tylenol Arthritis Pain) amoxicillin 500 mg capsule 500 mg PO DIRECTED 01/09/19 11/09/20 History multivitamin 2 tab PO DAILY 01/09/19 11/09/20 History sertraline 50 mg tablet 75 mg PO DAILY 01/09/19 11/09/20 History apixaban 2.5 mg tablet (Eliquis) 2.5 mg PO BID #60 tab 01/17/19 11/09/20 Rx aspirin 81 mg tablet,delayed 81 mg PO DAILY 02/10/19 11/09/20 History release (Aspirin Low Dose) atorvastatin 40 mg tablet 40 mg PO DAILY #90 tab 02/19/19 11/09/20 Rx carvedilol 12.5 mg tablet (Coreg) 12.5 mg PO BID 06/12/19 11/09/20 History menthol 0.44 %-zinc oxide 20.6 % 1 applic TOPICAL QID PRN 06/12/19 11/09/20 History topical ointment (Calmoseptine) menthol 4 % topical gel (Biofreeze 1 applic TOPICAL UD PRN 06/12/19 11/09/20 History (menthol)) vit A 1,000 unit-C 200 mg-E 60 1 tab PO DAILY 06/12/19 11/09/20 History unit-lutein 2 mg and minerals tablet (Ocuvite with Lutein) zinc oxide-cod liver oil 40 % 1 applic TOPICAL UD PRN 06/12/19 11/09/20 History topical paste (Desitin) fexofenadine 180 mg tablet 180 mg PO DAILY 10/20/19 11/09/20 History (Allergy Relief (fexofenadine)) furosemide 40 mg tablet 40 mg PO DAILY #45 tab 03/19/20 11/09/20 Rx furosemide 80 mg tablet 40 mg PO 2XWK #30 tab 03/19/20 11/09/20 Rx lorazepam 1 mg tablet 1 mg PO DAILY #30 tab 06/28/20 11/09/20 Rx lorazepam 1 mg tablet 1 mg PO DAILY PRN #30 tab 06/28/20 11/09/20 Rx loratadine 10 mg tablet 10 mg PO DAILY PRN #30 tab 08/24/20 11/09/20 Rx levothyroxine 75 mcg tablet 75 mcg PO DAILY #30 tab 10/12/20 11/09/20 Rx diphenoxylate-atropine 2.5 1 tab PO QID PRN #120 tab 10/20/20 11/09/20 Rx mg-0.025 mg tablet ondansetron 4 mg disintegrating 4 mg PO Q8H PRN #30 tab 11/03/20 11/09/20 Rx tablet docusate sodium 100 mg capsule 100 mg PO DAILY PRN 01/13/21 01/13/21 History (Stool Softener) polyethylene glycol 3350 17 gram 17 g PO DAILY PRN 01/13/21 01/13/21 History oral powder packet prednisone 20 mg tablet See Rx Instructions .ROUTE 01/13/21 01/13/21 History .COMPLEX PRN tramadol 50 mg tablet See Rx Instructions .ROUTE .COMPLEX 01/13/21 01/13/21 History Past Med/Surg History Medical History Atrial fibrillation Cholelithiases CKD (chronic kidney disease) DVT (deep venous thrombosis) Dyslipidemia Elevated LFTs Lymphedema NSVT (nonsustained ventricular tachycardia) PE (pulmonary embolism) TIA (transient ischemic attack) "november 2012" UTI (urinary tract infection) Surgical History H/O cardiac catheterization "IN 2005 - as per patient - this was normal" Hip joint replacement status "RIGHT" History of carpal tunnel surgery History of cholecystectomy Hx of cardiac pacemaker S/P TKR (total knee replacement) "BILATERAL" Status post cystoscopy with ureteral stent placement Family History Other Cancer Family history non-contributory Denies family history of Heart disease Social History Smoking Status: Never smoker Hx Alcohol Use: No Hx Substance Use: No Preferred Language: Irish Communication Ability: Effective Beliefs That Will Affect Care: None marital status: / Current Living Situation: Personal Care Facility current occupational status: retired Feels Safe at Home: Yes Physical Activity Frequency: Does not Exercise Assistive Devices: Glasses and Walker Review of Systems Review of Systems: Gen: Denies fevers, night sweats, rigors, fatigue, malaise, weight loss/gain ENT: Denies congestion, throat pain, hearing loss Eyes: Denies acute visual changes CV: Denies CP, palpitations Pulmonary: Denies SOB, cough, wheezing GI: Dark stool with blood clots as above Neuro: Denies acute or unilateral weakness, acute gait impairment, headache or acute visual changes Musculoskeletal: Denies joint pain, inflammation Endocrine: Denies polydipsia, polyuria Skin: Denies acute rashes or ulcers Physical Exam Physical Exam: General: Pleasant, elderly F, AAO x 3, no distress ENT: No erythema or exudates, no thrush Eyes: ELPIDIO, EOMI Head and neck: Normocephalic, atraumatic, No JVD, neck is supple. Chest/heart: Nontender, S1,2, RRR, no murmurs, no gallops Lungs: CTAB, no wheezing or crackles Abdomen: There is mild suprapubic tenderness. Neuro: AAO x 3, speech is clear, no unilateral weakness or loss of sensation, coordination intact Musculoskeletal: No joint inflammation, muscle tenderness, FROM Skin: No acute rashes or ulcers, stasis changes Extremities: No clubbing, cyanosis, edema Results & Data Results & [facility] Vital Signs (Past 12 Hours) Vital Signs Temp Pulse Resp BP Pulse Ox 01/13/21 13:01 97.7 F 69 20 110/48 L 95 01/13/21 12:56 67 20 95/54 L 97 Diagnostic Findings 1. There is a 6.2 cm solid and cystic mass in the right adnexa, likely related to the right ovary. Ovarian cancer is the diagnosis of exclusion. 2. The right adnexal mass appears tethered to the adjacent sigmoid colon. 3. There is evidence of peritoneal metastatic disease with numerous peritoneal implants and extensive omental caking. No ascites is identified. 5. Moderate to severe sigmoid diverticulosis without CT evidence of acute diverticulitis. 6. Cirrhotic liver morphology. PG Care Time/CCT Total # of Minutes Spent Total Time Spent with Patient: Total time spent is greater than 50% in coordination of care (as documented) at patient's floor/unit and/or counseling patient: Coding Level of Care Code 68447 Initial Inpt Care Lvl 3 Diagnoses Acute lower GI bleeding K92.2 Pelvic mass R19.00 Diverticulosis K57.90 Anemia D64.9 Gout M10.9 CAD (coronary artery disease) I25.10 Associated angina: without angina Coronary Disease-Associated Artery/Lesion type: andreafski artery Jackson vs. transplanted heart: andreafski heart CKD (chronic kidney disease), stage IV N18.4 (1) CAD (coronary artery disease) Associated angina: without angina Coronary Disease-Associated Artery/Lesion type: andreafski artery Jackson vs. transplanted heart: andreafski heart Qualified Code(s): I25.10 - Atherosclerotic heart disease of andreafski coronary artery without angina pectoris
--- NOTE | 2021-01-13 14:45 | CT Scan Report ---
CT SCAN OF THE ABDOMEN AND PELVIS WITHOUT IV CONTRAST CLINICAL HISTORY: Left upper quadrant abdominal pain. COMPARISON STUDY: Abdominal CT dated 10/04/2016. TECHNIQUE: CT scan of the abdomen and pelvis is performed from the lung bases to the proximal femora. Images are reviewed in the axial, sagittal, and coronal planes. IV contrast was not administered for this examination. Note that the examination was performed in suboptimal fashion without oral and IV contrast. A dose lowering technique was utilized adhering to the principles of ALARA. The examination is degraded by streak artifact from the arms which could not be elevated above the abdomen or pelvis . There is also streak artifact from the body wall abutting the CT gantry. CT DOSE: 1863.97 mGy.cm FINDINGS: Lung bases: The heart is mildly enlarged and without pericardial effusion. Pacemaker leads are noted. Diminished attenuation of the cardiac blood pool as compared to the myocardium suggests anemia. A ti ny hiatal hernia is noted. The lung bases are clear noting bibasilar scarring/atelectasis. Liver: The unenhanced liver is cirrhotic in morphology and heterogeneous in attenuation. There is nod ularity of the hepatic surface contour. There is no intrahepatic biliary ductal dilatation. Gallbladder: Surgically absent noting clips in the gallbladder fossa. Spleen: Normal in size and attenuation. Pancreas: The unenhanced pancreas is atrophic and grossly unremarkable. Adrenal glands: Unremarkable. Kidneys: The unenhanced kidneys are atrophic and without hydronephrosis. There are no renal calculi i dentified. There is no evidence of contour deforming renal mass lesion. Abdominal vasculature: The abdominal aorta is normal in course and caliber noting moderate atheroscle rotic calcification. Bowel: There is moderate to advanced sigmoid diverticulosis without CT evidence of acute diverticulit is. No bowel obstruction is seen. Mild fecal retention is noted throughout the colon. The appendix is normal as visualized. Peritoneum: No intraperitoneal free air or abdominal ascites is identified. There is evidence of mauro toneal metastatic disease. With extensive omental caking and peritoneal nodularity of omental caking is best seen on axial image #192 and the left ventral abdomen. Tiny peritoneal implants in the left u pper quadrant are seen on image #120. A 2.1 cm implant in the gastrohepatic space is seen on image #1 24. Lymphadenopathy: None. Pelvic viscera: Evaluation of the pelvis is degraded by streak artifact from a right hip arthroplasty . The bladder is normal as visualized. The uterus is surgically absent. There is a 6.2 x 5.3 cm solid and cystic right adnexal mass lesion seen on image #302. This is likely related to the right ovary, and appears to be tethered to the adjacent sigmoid colon seen on image #319. Skeletal structures: The skeletal structures are osteopenic. No lytic or blastic lesions are seen. Th ere is moderate to advanced lumbosacral spondylosis. A right hip arthroplasty is in place. Degenerati ve change is noted in the left hip. IMPRESSION: 1. Suboptimal examination without oral and IV contrast. There is also significant streak artifact. 2. There is a 6.2 cm solid and cystic mass in the right adnexa, likely related to the right ovary. Ov peggy cancer is the diagnosis of exclusion. 3. The right adnexal mass appears tethered to the adjacent sigmoid colon. 4. There is evidence of peritoneal metastatic disease with numerous peritoneal implants and extensive omental caking. No ascites is identified. 4. Moderate to severe sigmoid diverticulosis without CT evidence of acute diverticulitis. 7. Cirrhotic liver morphology. 8. Additional findings as above. ACT 112: Positive. There are findings on this exam that require communication between the performing entity and the patient following Patient Test Result Information Act ([place] Act 112) guidelines. Electronically signed by: Gee Hamilton M.D. 01/13/2021 2:43 PM
[2021-01-13] MEDS ORDERED: traMADol HCL 50 MG TABLET PO PRN (21:06)
[2021-01-13 21:27] LABS: Hematocrit (blood only) 27.7 % (37-47); Hemoglobin 8.8 g/dL (12.0-16.0)
[2021-01-13] MEDS: NON-FORMULARY MEDICATION (Acetaminophen [Tylenol Arthritis Pain] 650 mg Tablet Extended Re PO SCH (22:24)
[2021-01-13] MEDS: carvediloL 12.5 MG TAB PO SCH (22:38)
[2021-01-13] MEDS: PANTOprazole 40 MG in SYRINGE 0 ML IV SCH (22:39)
[2021-01-13] MEDS: ACETAMINOPHEN 325 MG TAB PO SCH (22:39)
[2021-01-13] MEDS: traMADol HCL 50 MG TABLET PO SCH (22:41)
[2021-01-14] MEDS ORDERED: FUROSEMIDE 10 MG in SYRINGE 0 ML IV ONE (00:05)
[2021-01-14] MEDS ORDERED: ALBUMIN 25% 12.5 GM/50 ML VIAL IV ONE (00:30)
[2021-01-14] MEDS ORDERED: FUROSEMIDE 40 MG/4 ML VIAL IV ONE (00:30)
[2021-01-14 03:11] LABS: Basophils # (auto) 0.01 K/uL (0-0.2); Basophils % (auto) 0.1 %; Eosinophils # (auto) 0.15 K/uL (0-0.5); Eosinophils % (auto) 2.1 %; Hematocrit (blood only) 27.3 % (37-47); Immature Granulocytes # (auto) 0.03 K/uL (0.00-0.02); Immature Granulocytes % (auto) 0.4 %; Lymphocytes # (auto) 1.86 K/uL (1.2-3.4); Lymphocytes % (auto) 25.6 %; Mean Corpuscular Hemoglobin 30.6 pg (25-34); Mean Corpuscular Volume 92.9 fL (80-100); Mean Platelet Volume 10.2 fL (7.4-10.4); Monocytes # (auto) 0.95 K/uL (0.11-0.59); Monocytes % (auto) 13.1 %; Neutrophils # (auto) 4.26 K/uL (1.4-6.5); Neutrophils % (auto) 58.7 %; Platelet Count 145 K/uL (130-400); RDW Coefficient of Variation 14.6 % (11.5-14.5); RDW Standard Deviation 49.5 fL (36.4-46.3); Red Blood Count 2.94 M/uL (4.2-5.4); White Blood Count 7.26 K/uL (4.8-10.8)
[2021-01-14] MEDS: LEVOTHYROXINE SODIUM 75 MCG TABLET PO SCH (05:08)
[2021-01-14] MEDS: ACETAMINOPHEN 325 MG TAB PO SCH ×2 (07:56→20:52)
[2021-01-14] MEDS: carvediloL 12.5 MG TAB PO SCH ×2 (07:56→20:57)
[2021-01-14] MEDS: traMADol HCL 50 MG TABLET PO SCH ×2 (07:56→20:55)
[2021-01-14] MEDS: NON-FORMULARY MEDICATION (Acetaminophen [Tylenol Arthritis Pain] 650 mg Tablet Extended Re PO SCH ×2 (07:57→20:26)
[2021-01-14] MEDS: ATORVASTATIN 40 MG TAB PO SCH (07:57)
[2021-01-14] MEDS: SERTRALINE HCL 50 MG TABLET PO SCH (07:57)
[2021-01-14] MEDS: PANTOprazole 40 MG in SYRINGE 0 ML IV SCH ×2 (07:57→20:52)
[2021-01-14 09:12] LABS: Albumin Level 3.2 gm/dl (3.4-5.0); BUN Creatinine Ratio 48.6 (10-20); Calcium 8.3 mg/dl (8.5-10.1); Creatinine Clr Calc Pharmacy 28.5 ml/min; Est GFR (African American) 26.1 ml/min; Est GFR (Non-African American) 22.5 ml/min; Magnesium 2.1 mg/dl (1.8-2.4); Potassium 4.6 mmol/L (3.5-5.1)
[2021-01-14 09:15] LABS: Albumin Globulin Ratio 1.1 (0.9-2); Bilirubin,Total 0.5 mg/dl (0.2-1); Total Protein 6.2 gm/dl (6.4-8.2)
--- NOTE | 2021-01-14 09:42 | Gastrointestinal Consultation ---
Date of Consultation January 14, 2021 Assessment & Plan (1) Anemia: (2) Melena: (3) Pelvic mass: Patient is a very pleasant 80 y.o. female admitted with melena and acute blood loss anemia on Eliquis for PAF with abnormal CT imaging suggestive of a right adnexal malignancy with mets to the peritoneum. DDx of melena include: PUD vs AVM vs diverticular (less likely) vs malignancy vs other. Plan: * NPO for now. * EGD with Dr. Sommer for further evaluation. * Continue Pantoprazole 40 mg IV BID. * Further recommendations will be made pending results of testing. * Recommend oncology consultation in regard to suspected malignancy. Thank you for allowing us to participate in the care of this patient. If you have any questions or concerns, please do not hesitate to contact us. Supervising Physician Co-Signing Physician Notes Agree with CHARLES Pascual as above Abd: Soft, NT, ND, +BS Continue current therapy and supportive care Proceed with EGD now. History of Present Illness Reason for Consultation: GI bleed Requesting Physician: Dr. Oviedo Attending Physician: Alma Rosa Demarco MD History of Present Illness Bonnie Aviles is a very pleasant 80 y.o. female with a history of HTN, HLD, DM, hypothyroidism, cirrhosis, PAF, CAD and CHF on Eliquis admitted with melena x 3 days and acute blood loss anemia. She was admitted with a H&H of 8.6/27.0 which was normal earlier this year. After receiving 2 units of PRBCs, her H&H is now 9.0/27.3. Other than melena, she denies any diarrhea, constipation, nausea or vomiting. Endorses RLQ pain which is worse with palpation. CT imaging obtained upon arrival demonstrated a large 6.2 cm right adnexal mass with peritoneal nodularity and omental caking suspicious for malignancy with mets. She has been made NPO and started on Protonix 40 mg IV BID. Allergies Allergy/AdvReac Type Severity Reaction Status Date / Time montelukast Allergy Unknown Unknown Unverified 01/13/21 15:15 Sulfa (Sulfonamide Allergy Unknown Unknown Unverified 01/13/21 15:15 Antibiotics) adhesive AdvReac Intermediate RASH Verified 01/13/21 15:15 morphine AdvReac Intermediate VOMITING Verified 01/13/21 15:15 Home Medications Medication Instructions Recorded Confirmed Type acetaminophen 650 mg 650 mg PO Q12H 01/09/19 01/13/21 History tablet,extended release (Tylenol Arthritis Pain) amoxicillin 500 mg capsule 2,000 mg PO DIRECTED PRN 01/09/19 01/13/21 History multivitamin 2 tab PO DAILY 01/09/19 01/13/21 History sertraline 50 mg tablet 75 mg PO DAILY 01/09/19 01/13/21 History apixaban 2.5 mg tablet (Eliquis) 2.5 mg PO BID #60 tab 01/17/19 01/13/21 Rx aspirin 81 mg tablet,delayed 81 mg PO DAILY 02/10/19 01/13/21 History release (Aspirin Low Dose) atorvastatin 40 mg tablet 40 mg PO DAILY #90 tab 02/19/19 01/13/21 Rx carvedilol 12.5 mg tablet (Coreg) 12.5 mg PO BID 06/12/19 01/13/21 History menthol 0.44 %-zinc oxide 20.6 % 1 applic TOPICAL QID PRN 06/12/19 01/13/21 History topical ointment (Calmoseptine) menthol 4 % topical gel (Biofreeze 1 applic TOPICAL UD PRN 06/12/19 01/13/21 History (menthol)) vit A 1,000 unit-C 200 mg-E 60 1 tab PO DAILY 06/12/19 01/13/21 History unit-lutein 2 mg and minerals tablet (Ocuvite with Lutein) zinc oxide-cod liver oil 40 % 1 applic TOPICAL UD PRN 06/12/19 01/13/21 History topical paste (Desitin) fexofenadine 180 mg tablet 180 mg PO DAILY 10/20/19 01/13/21 History (Allergy Relief (fexofenadine)) furosemide 40 mg tablet 40 mg PO DAILY #45 tab 03/19/20 01/13/21 Rx furosemide 80 mg tablet 40 mg PO 2XWK #30 tab 03/19/20 01/13/21 Rx lorazepam 1 mg tablet 1 mg PO DAILY #30 tab 06/28/20 01/13/21 Rx lorazepam 1 mg tablet 1 mg PO DAILY PRN #30 tab 06/28/20 01/13/21 Rx loratadine 10 mg tablet 10 mg PO DAILY PRN #30 tab 08/24/20 01/13/21 Rx levothyroxine 75 mcg tablet 75 mcg PO DAILY #30 tab 10/12/20 01/13/21 Rx diphenoxylate-atropine 2.5 1 tab PO QID PRN #120 tab 10/20/20 01/13/21 Rx mg-0.025 mg tablet ondansetron 4 mg disintegrating 4 mg PO Q8H PRN #30 tab 11/03/20 01/13/21 Rx tablet docusate sodium 100 mg capsule 100 mg PO DAILY PRN 01/13/21 01/13/21 History (Stool Softener) polyethylene glycol 3350 17 gram 17 g PO DAILY PRN 01/13/21 01/13/21 History oral powder packet tramadol 50 mg tablet See Rx Instructions .ROUTE .COMPLEX 01/13/21 01/13/21 History trazodone 50 mg tablet 50 mg PO HS 01/14/21 01/14/21 History Patient History Medical History Atrial fibrillation Cholelithiases CKD (chronic kidney disease) DVT (deep venous thrombosis) Dyslipidemia Elevated LFTs Lymphedema NSVT (nonsustained ventricular tachycardia) PE (pulmonary embolism) TIA (transient ischemic attack) "november 2012" UTI (urinary tract infection) Surgical History H/O cardiac catheterization "IN 2005 - as per patient - this was normal" Hip joint replacement status "RIGHT" History of carpal tunnel surgery History of cholecystectomy Hx of cardiac pacemaker S/P TKR (total knee replacement) "BILATERAL" Status post cystoscopy with ureteral stent placement Family History Other Cancer Family history non-contributory Denies family history of Heart disease Social History Smoking Status: Never smoker Second Hand Exposure: No; Do You Dip or Chew Tobacco: No; Hx Alcohol Use: No Hx Substance Use: No Preferred Language: Armenian Communication Ability: Effective Beliefs That Will Affect Care: None marital status: / Current Living Situation: Long-Term Current Living Situation Comment: [facility] current occupational status: retired Feels Safe at Home: Yes Safety Concerns: Feels Safe At This Time Physical Activity Frequency: Does not Exercise Assistive Devices: Denture - Upper and Walker Review of Systems Constitutional: no fever and no chills Respiratory: no cough and no dyspnea Cardiovascular: no chest pain and no palpitations Gastrointestinal: as per Subjective / HPI Physical Exam Constitutional: WD/WN, vitals as above Eyes: EOM intact bilaterally Neck: normal visual inspection Respiratory: normal respiratory effort, lungs clear to auscultation Cardiovascular: Rate/Rhythm: regular rate and regular rhythm Heart Sounds: + murmur Gastrointestinal (Abdomen): Inspection/Auscultation: normal bowel sounds Percussion/Palpation: + abdomen tender (RLQ) and abdomen soft Skin: + pallor Psychiatric: A+Ox3, euthymic affect Results & [facility]) Vital Signs (Past 12 Hours) Vital Signs Temp Pulse Pulse Pulse Resp BP BP 01/14/21 07:53 36.7 C 64 16 108/67 01/14/21 01:24 66 18 105/65 01/14/21 00:20 36.6 C 63 18 102/66 01/13/21 23:56 01/13/21 23:50 36.4 C L 67 16 91/58 L 01/13/21 23:20 36.6 C 71 16 111/69 01/13/21 22:35 36.6 C 72 18 110/67 01/13/21 22:14 36.6 C 63 18 122/70 Pulse Ox 01/14/21 07:53 94 01/14/21 01:24 93 01/14/21 00:20 01/13/21 23:56 98 01/13/21 23:50 88 L 01/13/21 23:20 91 01/13/21 22:35 93 01/13/21 22:14 95 Laboratory Results Abnormal lab results 01/13/21 01/13/21 01/13/21 Range/Units 13:49 13:49 14:02 RBC 2.76 L (4.2-5.4) M/uL Hgb 8.6 L (12.0-16.0) g/dL Hct 27.0 L (37-47) % MCHC 31.9 L (32-36) g/dL RDW Std Deviation 50.7 H (36.4-46.3) fL RDW Coeff of Amalia (11.5-14.5) % MPV 10.7 H (7.4-10.4) fL Clare # (Auto) 0.89 H (0.11-0.59) K/uL Immature Gran # (Auto) 0.03 H (0.00-0.02) K/uL Chloride 111 H (98-107) mmol/L BUN 98 H (7-18) mg/dl Creatinine 2.14 H (0.6-1.2) mg/dl BUN/Creatinine Ratio 45.7 H (10-20) Calcium 8.4 L (8.5-10.1) mg/dl AST 13 L (15-37) U/L Total Protein (6.4-8.2) gm/dl Albumin 3.3 L (3.4-5.0) gm/dl Crossmatch See Detail 01/13/21 01/14/21 01/14/21 Range/Units 21:21 02:58 08:12 RBC 2.94 L (4.2-5.4) M/uL Hgb 8.8 L 9.0 L (12.0-16.0) g/dL Hct 27.7 L 27.3 L (37-47) % MCHC (32-36) g/dL RDW Std Deviation 49.5 H (36.4-46.3) fL RDW Coeff of Amalia 14.6 H (11.5-14.5) % MPV (7.4-10.4) fL Clare # (Auto) 0.95 H (0.11-0.59) K/uL Immature Gran # (Auto) 0.03 H (0.00-0.02) K/uL Chloride 115 H (98-107) mmol/L BUN 98 H (7-18) mg/dl Creatinine 2.01 H (0.6-1.2) mg/dl BUN/Creatinine Ratio 48.6 H (10-20) Calcium 8.3 L (8.5-10.1) mg/dl AST 11 L (15-37) U/L Total Protein 6.2 L (6.4-8.2) gm/dl Albumin 3.2 L (3.4-5.0) gm/dl Crossmatch PG Care Time/CCT Total # of Minutes Spent Total Time Spent with Patient: Total time spent is greater than 50% in coordination of care (as documented) at patient's floor/unit and/or counseling patient: Coding Level of Care Code 90535 Initial Inpt Care Lvl 3 Diagnoses Anemia D64.9 Melena K92.1 Pelvic mass R19.00
[2021-01-14] MEDS: FUROSEMIDE 40 MG TAB PO SCH (10:37)
[2021-01-14] MEDS ORDERED: LORazepam 1 MG TAB PO PRN (11:57)
--- NOTE | 2021-01-14 12:21 | Hospitalist Progress Note ---
Date of Service January 14, 2021 Assessment & Plan (1) Acute lower GI bleeding: Plan: This patient is an 80 y/o F Hx HTN, HLD, hypothyroidism, DM II, gout, cirrhosis, CKD IV, PAF, CAD, systolic CHF. She presents with black-colored bowel movements with blood clots over the past 2 days. She has not had abdominal pain, nausea/vomiting or fevers. Initial labs are notable for hemoglobin of 8.6, down from a recent of 11.4. BUN is markedly elevated with a stable creatinine. A CT abdomen demonstrated a 6.2cm R ovarian/adnexal mass with peritoneal mets. GI bleed - a transfusion was ordered in the ER due to her cardiac history. She is now status post 2 units PRBCs and hemoglobin has come up to 9.0 With melena and elevated BUN, most likely upper GI bleed Appreciate GI consultation EGD with esophagitis but no active bleeding-continue PPI twice daily It is possible that she has an AVM in the small bowel or perhaps in the more proximal colon that has bled but is now stopped Advance diet No plans for colonoscopy or capsule endoscopy at this point as per my discussion with GI -Continue to hold Eliquis and aspirin-of note, she is in sinus rhythm (2) Anemia: Plan: Hemoglobin is back up to 9.0 after blood transfusion Acute blood loss anemia MCV is high normal-recent B12 and folate were normal in 11/2020 Follow CBC in the morning Monitor for bleeding (3) Pelvic mass: Plan: CT abdomen/pelvis shows right adnexal 6 cm cystic and solid mass, ovarian cancer is diagnosis of exclusion CA-125 is pending No need for oncology consultation as per my discussion with the on-call oncologist until the biopsy with tissue pathology is obtained Discussed care with radiology-plan for ultrasound-guided biopsy of one of the peritoneal mets although this may prove difficult Follow-up with oncology after discharge (4) Gout: Plan: No acute issues (5) CAD (coronary artery disease): Plan: - no evidence of ACS - hold ASA - cont statin, Carvedilol. (6) CKD (chronic kidney disease), stage IV: Plan: Creatinine is at baseline at 2.0 With good urine output -Avoid nephrotoxins -renally dose meds when appropriate -follow BMP (7) Chronic systolic congestive heart failure: Plan: With some volume overload with PRBC transfusion overnight-received IV Lasix -Restart Lasix 40 mg p.o. once daily Continue carvedilol. Daily weights Follow BMP (8) Status post placement of cardiac pacemaker: Plan: For severely reduced EF (9) Hypothyroidism: Plan: TSH normal 2.2 Continue home levothyroxine (10) Obesity (BMI 30-39.9): Plan: BMI 39 (11) Left bundle branch block (LBBB): Plan: Chronic (12) DM w/o complication type II: Plan: Most recent hemoglobin A1c 6.4% in 09/2020 Not on insulin here Blood sugars well controlled (13) Cirrhosis: Plan: Noted on CT scan abdomen/pelvis Does not use alcohol Most likely secondary to fatty liver (14) Atrial fibrillation: Plan: Paroxysmal atrial fibrillation Is in sinus rhythm on EKG on admission as well as on clinical examination Holding Eliquis for GI bleed Continue home carvedilol Plan: DVT Prophylaxis-none given GI bleed DIspo-continued stay Admission and Anticipated Discharge Date Admission Date: January 13, 2021 Subjective Patient reports some ongoing abdominal pain as well as increased pain in her neck and upper back over the last month. No further melena or bloody stools overnight. No nausea or vomiting. No chest pain or shortness of breath. She did receive IV Lasix last night for shortness of breath and mild hypoxia with receiving her PRBC transfusion. I discussed her care with GI. I also discussed her care with [id number] consult after pathology obtained. I discussed her care with the radiologist as well. Patient reports feeling some pain in the right lower abdomen every time she has to urinate. She reports great difficulty with sleeping-her home Ativan and trazodone were restarted. I discussed her care with her daughter at the bedside Review of Systems Review of Systems: All systems reviewed & are unremarkable except as noted in HPI & below Physical Exam Constitutional: WD/WN, vitals as above + obese Eyes: + anicteric sclerae ENMT: external ear and nose normal, oropharynx normal Neck: trachea midline, no thyromegaly Respiratory: normal respiratory effort, lungs clear to auscultation Cardiovascular: RRR, no murmur, no edema Chest (Breasts): Chest: normal inspection of chest Gastrointestinal (Abdomen): Inspection/Auscultation: abdomen normal to inspection and + abdominal surgical incision (Surgical scars from laparoscopic cholecystectomy) Percussion/Palpation: + abdomen tender (Diffusely mildly tender, more so in RLQ without guarding or rebound) and abdomen soft; no guarding Musculoskeletal: Extremities: extremities normal to inspection; no cyanosis and no clubbing Skin: no rashes, warm and dry Neurologic: moves all extremities and awake; no focal motor deficits Psychiatric: A+Ox3, euthymic affect Lymphatic: no lymphedema Results & Data Results & Data ([facility]) Vital Signs (Past 12 Hours) Vital Signs Temp Pulse Pulse Resp BP Pulse Ox 01/14/21 07:53 36.7 C 64 16 108/67 94 01/14/21 01:24 66 18 105/65 93 Laboratory Results 01/14/21 01/14/21 01/14/21 Range/Units 13:00 08:12 07:44 WBC (4.8-10.8) K/uL RBC (4.2-5.4) M/uL Hgb (12.0-16.0) g/dL Hct (37-47) % MCV (80-100) fL MCH (25-34) pg MCHC (32-36) g/dL RDW Std Deviation (36.4-46.3) fL RDW Coeff of Amalia (11.5-14.5) % Plt Count (130-400) K/uL MPV (7.4-10.4) fL Immature Gran % (Auto) % Neut % (Auto) % Lymph % (Auto) % Carbon % (Auto) % Eos % (Auto) % Baso % (Auto) % Neut # (Auto) (1.4-6.5) K/uL Lymph # (Auto) (1.2-3.4) K/uL Carbon # (Auto) (0.11-0.59) K/uL Eos # (Auto) (0-0.5) K/uL Baso # (Auto) (0-0.2) K/uL Immature Gran # (Auto) (0.00-0.02) K/uL Sodium 142 (136-145) mmol/L Potassium 4.6 (3.5-5.1) mmol/L Chloride 115 H (98-107) mmol/L Carbon Dioxide 21 (21-32) mmol/L Anion Gap 6.0 (3-11) BUN 98 H (7-18) mg/dl Creatinine 2.01 H (0.6-1.2) mg/dl Est Cr Clr Drug Dosing 28.5 ml/min Est GFR ( Amer) 26.1 ml/min Est GFR (Non-Af Amer) 22.5 ml/min BUN/Creatinine Ratio 48.6 H (10-20) Glucose 84 (70-99) mg/dl Calcium 8.3 L (8.5-10.1) mg/dl Magnesium 2.1 (1.8-2.4) mg/dl Total Bilirubin 0.5 (0.2-1) mg/dl AST 11 L (15-37) U/L ALT 14 (12-78) U/L Alkaline Phosphatase 68 (45-117) U/L Total Protein 6.2 L (6.4-8.2) gm/dl Albumin 3.2 L (3.4-5.0) gm/dl Globulin 3.0 (2.5-4.0) gm/dl Albumin/Globulin Ratio 1.1 (0.9-2) CA 125 Antigen Pending Urine Color Yellow Urine Appearance Clear (Clear) Urine pH 5.5 (4.5-7.5) Ur Specific [place] 1.014 (1.000-1.030) Urine Protein Negative (Negative) Urine Glucose (UA) Negative (Negative) Urine Ketones Negative (Negative) Urine Blood Negative (Negative) Urine Nitrite Negative (Negative) Urine Bilirubin Negative (Negative) Urine Urobilinogen Negative (Negative) Ur Leukocyte Esterase Negative (Negative) Crossmatch 01/14/21 01/13/21 Range/Units 02:58 14:02 WBC 7.26 (4.8-10.8) K/uL RBC 2.94 L (4.2-5.4) M/uL Hgb 9.0 L (12.0-16.0) g/dL Hct 27.3 L (37-47) % MCV 92.9 D (80-100) fL MCH 30.6 (25-34) pg MCHC 33.0 (32-36) g/dL RDW Std Deviation 49.5 H (36.4-46.3) fL RDW Coeff of [place] 14.6 H (11.5-14.5) % Plt Count 145 (130-400) K/uL MPV 10.2 (7.4-10.4) fL Immature Gran % (Auto) 0.4 % Neut % (Auto) 58.7 % Lymph % (Auto) 25.6 % Carbon % (Auto) 13.1 % Eos % (Auto) 2.1 % Baso % (Auto) 0.1 % Neut # (Auto) 4.26 (1.4-6.5) K/uL Lymph # (Auto) 1.86 (1.2-3.4) K/uL Carbon # (Auto) 0.95 H (0.11-0.59) K/uL Eos # (Auto) 0.15 (0-0.5) K/uL Baso # (Auto) 0.01 (0-0.2) K/uL Immature Gran # (Auto) 0.03 H (0.00-0.02) K/uL Sodium (136-145) mmol/L Potassium (3.5-5.1) mmol/L Chloride (98-107) mmol/L Carbon Dioxide (21-32) mmol/L Anion Gap (3-11) BUN (7-18) mg/dl Creatinine (0.6-1.2) mg/dl Est Cr Clr Drug Dosing ml/min Est GFR ( Amer) ml/min Est GFR (Non-Af Amer) ml/min BUN/Creatinine Ratio (10-20) Glucose (70-99) mg/dl Calcium (8.5-10.1) mg/dl Magnesium (1.8-2.4) mg/dl Total Bilirubin (0.2-1) mg/dl AST (15-37) U/L ALT (12-78) U/L Alkaline Phosphatase (45-117) U/L Total Protein (6.4-8.2) gm/dl Albumin (3.4-5.0) gm/dl Globulin (2.5-4.0) gm/dl Albumin/Globulin Ratio (0.9-2) CA 125 Antigen Urine Color Urine Appearance (Clear) Urine pH (4.5-7.5) Ur Specific [place] (1.000-1.030) Urine Protein (Negative) Urine Glucose (UA) (Negative) Urine Ketones (Negative) Urine Blood (Negative) Urine Nitrite (Negative) Urine Bilirubin (Negative) Urine Urobilinogen (Negative) Ur Leukocyte Esterase (Negative) Crossmatch See Detail Diagnostic Findings Cervical Spine CT 01/14/21 12:[address] DOSE: HISTORY: neck pain,right hand numbness,?mets TECHNIQUE: Multiaxial CT images of the cervical spine were performed and reformatted in the sagittal and coronal plane without the use of contrast. A dose lowering technique was utilized adhering to the principles of ALARA. COMPARISON: None. FINDINGS: No fractures. No subluxation. Prevertebral soft tissues and the C1-C2 interval are intact. No pneumothorax. No suspicious lytic or blastic osseous lesions. Mild degenerative disc disease within the cervical spine. Moderate to severe facet osteoarthritis within the left C2-C5 levels. There is mild right- sided facet arthrosis. Pacemaker wires are noted. IMPRESSION: 1. No evidence for metastatic disease within the cervical spine. 2. Degenerative changes as described above. 3. No fractures. ACT 112: Negative or not required by law. Electronically signed by: Markus Escamilla M.D. 01/14/2021 1:[address] 01/14/21 12:17 CT SCAN OF THE CHEST WITHOUT IV CONTRAST CLINICAL HISTORY: Thoracic back pain. Carcinomatosis. COMPARISON STUDY: Chest CT dated 08/15/2016. Chest x-ray dated 01/13/2021. TECHNIQUE: CT scan of the thorax was performed from the thoracic inlet to the upper abdomen. Images are reviewed in the axial, sagittal, and coronal planes. IV contrast was not administered for this examination as per the referring clinician. A dose lowering technique was utilized adhering to the principles of ALARA. The examination is degraded by motion artifact, as well as by streak artifact from the arms which could not be elevated above the chest. FINDINGS: Thyroid: Imaged portions of the thyroid gland are normal in size and attenuation. Thoracic aorta: There is mild atherosclerotic calcification of the thoracic aorta, which is normal in caliber and demonstrates standard 3-vessel arch anatomy. Heart: A cardiac AICD is present in the left chest wall. The heart is enlarged and without pericardial effusion. Enlargement of the pulmonary arteries suggests pulmonary artery hypertension. Lungs and pleural spaces: Evaluation of the lung parenchyma is significantly compromised by motion artifact. There is no airspace consolidation or pleural effusion. The trachea and central airways are clear. Scarring/atelectasis is noted at the lung bases. Mediastinum: There are mildly enlarged mediastinal lymph nodes. An AP window node measures 12 mm in short axis. A precarinal node measures 14 mm in short axis. Sherri: Not well assessed without IV contrast. Axillae: There is no axillary lymphadenopathy. Upper abdomen: Findings a peritoneal carcinomatosis are again seen in the upper abdomen. The liver is cirrhotic in morphology. The kidneys are atrophic. See report of abdominal CT dated 01/13/2021 for detailed intra-abdominal findings. Skeletal structures: The skeletal structures are osteopenic. Advanced arthritic change is seen in the shoulders. Degenerative change and mild kyphoscoliosis is noted in the thoracic spine. No lytic or blastic bony lesions are seen. IMPRESSION: 1. Streak and motion compromised examination. 2. There is no airspace consolidation or pleural effusion. 3. Cardiomegaly and AICD. 4. Findings of peritoneal carcinomatosis are again seen in the upper abdomen. 5. Mildly enlarged mediastinal lymph nodes are nonspecific. 6. Additional findings as above. ACT 112: Negative or not required by law. Electronically signed by: Gee Hamilton M.D. 01/14/2021 2:[address] 01/14/21 12:17 CT thoracic spine wo con HISTORY: 80 years-old Female thoracic back pain,?mets acute mid back pain without reported trauma COMPARISON: CT cervical spine, CT chest, abdomen and pelvis studies of same day, chest radiographs 01/17/2019 TECHNIQUE: Multiple axial CT images of the thoracic spine were obtained without the use of IV contrast. A dose lowering technique was used consistent with the principals of ALARA. FINDINGS: Demineralized appearance of the bones. Mild and mild to moderate multilevel intervertebral disc space narrowing with moderate anterior endplate spondylitic spurring and moderate facet arthrosis. Study is motion degraded. No acute fracture, subluxation or endplate erosion identified. Mid thoracic dextroscoliosis. The imaged ribs appear intact. No suspicious bone lesions. Evaluation of the central canal and neuroforamina is better assessed by MRI. No definite paravertebral edema identified. Cardiomegaly. No pneumothorax. IMPRESSION: 1. Motion gradient exam. No acute fracture or subluxation. 2. Mid thoracic dextroscoliosis with degenerative changes as above. 3. No suspicious bone lesions identified. ACT 112: Negative or not required by law. The above report was generated using voice recognition software. It may contain grammatical, syntax or spelling errors. Electronically signed by: Dominic Peña M.D. 01/14/2021 1:27 PM PG Care Time/CCT Total # of Minutes Spent Total Time Spent with Patient: Total time spent is greater than 50% in coordination of care (as documented) at patient's floor/unit and/or counseling patient: Coding Level of Care Code 88672 Subseq Hosp Care Lvl 3 Diagnoses Acute lower GI bleeding K92.2 Pelvic mass R19.00 Anemia D64.9 Gout M10.9 CAD (coronary artery disease) I25.10 Associated angina: without angina Coronary Disease-Associated Artery/Lesion type: [place] artery [place] vs. transplanted heart: [place] heart CKD (chronic kidney disease), stage IV N18.4 Chronic systolic congestive heart failure I50.22 Status post placement of cardiac pacemaker Z95.0 Hypothyroidism E03.9 Hypothyroidism type: acquired Obesity (BMI 30-39.9) E66.9 Left bundle branch block (LBBB) I44.7 DM w/o complication type II E11.9 Diabetes mellitus senior living insulin use: without senior living use Cirrhosis K74.60 Atrial fibrillation I48.0 Atrial fibrillation type: paroxysmal (1) CAD (coronary artery disease) Associated angina: without angina Coronary Disease-Associated Artery/Lesion type: [place] artery [place] vs. transplanted heart: [place] heart Qualified Code(s): I25.10 - Atherosclerotic heart disease of [place] coronary artery without angina pectoris (2) Hypothyroidism Hypothyroidism type: acquired Qualified Code(s): E03.9 - Hypothyroidism, unspecified (3) DM w/o complication type II Diabetes mellitus senior living insulin use: without senior living use Qualified Code(s): E11.9 - Type 2 diabetes mellitus without complications (4) Atrial fibrillation Atrial fibrillation type: paroxysmal Qualified Code(s): I48.0 - Paroxysmal atrial fibrillation
[2021-01-14 13:07] LABS: Appearance Urine Clear (Clear); Bilirubin Urine Negative (Negative); Blood Urine Negative (Negative); Color Urine Yellow; Glucose Urine UA Negative (Negative); Ketones Urine Negative (Negative); Leukocyte Esterase Urine Negative (Negative); Nitrite Urine Negative (Negative); Protein Urine Negative (Negative); Specific Gravity Urine 1.014 (1.000-1.030); Urobilinogen Urine Negative (Negative); pH Urine 5.5 (4.5-7.5)
--- NOTE | 2021-01-14 13:23 | CT Scan Report ---
CERVICAL SPINE CT CT DOSE: HISTORY: neck pain,right hand numbness,?mets TECHNIQUE: Multiaxial CT images of the cervical spine were performed and reformatted in the sagittal and coronal plane without the use of contrast. A dose lowering technique was utilized adhering to th e principles of ALARA. COMPARISON: None. FINDINGS: No fractures. No subluxation. Prevertebral soft tissues and the C1-C2 interval are intact. No pneumothorax. No suspicious lytic or blastic osseous lesions. Mild degenerative disc disease withi n the cervical spine. Moderate to severe facet osteoarthritis within the left C2-C5 levels. There is mild right-sided facet arthrosis. Pacemaker wires are noted. IMPRESSION: 1. No evidence for metastatic disease within the cervical spine. 2. Degenerative changes as described above. 3. No fractures. ACT 112: Negative or not required by law. Electronically signed by: Markus Escamilla M.D. 01/14/2021 1:22 PM
--- NOTE | 2021-01-14 13:24 | Anesthesiology Consultation ---
Date of Service January 14, 2021 Assessment & Plan Chart Review Chart Review: Acceptable Risk for Surgery and Patient NOT seen in Pre Admission Testing Consults Requested none ASA ASA4 Proposed Anesthesia Anesthesia Type: MAC Risk / Benefits Reviewed With: PT / POA / Parent / Guardian, Accepts Plan and Informed Consent Obtained History Surgery Operation Date: 01/14/21 15:30 Proposed Procedures p Esophagogastroduodenoscopy Dr Sommer - Raphael Cleveland Case, DO Height/Weight Height: 5 ft 7 in Weight: 117.027 kg Allergies Allergy/AdvReac Type Severity Reaction Status Date / Time montelukast Allergy Unknown Unknown Unverified 01/13/21 15:15 Sulfa (Sulfonamide Allergy Unknown Unknown Unverified 01/13/21 15:15 Antibiotics) adhesive AdvReac Intermediate RASH Verified 01/13/21 15:15 morphine AdvReac Intermediate VOMITING Verified 01/13/21 15:15 Medications Home Medications Medication Instructions Recorded Confirmed Last Taken acetaminophen 650 mg 650 mg PO Q12H 01/09/19 01/13/21 01/09/19 tablet,extended release (Tylenol Arthritis Pain) amoxicillin 500 mg capsule 2,000 mg PO DIRECTED PRN 01/09/19 01/13/21 01/09/19 multivitamin 2 tab PO DAILY 01/09/19 01/13/21 01/09/19 sertraline 50 mg tablet 75 mg PO DAILY 01/09/19 01/13/21 01/09/19 apixaban 2.5 mg tablet (Eliquis) 2.5 mg PO BID #60 tab 01/17/19 01/13/21 aspirin 81 mg tablet,delayed 81 mg PO DAILY 02/10/19 01/13/21 Unknown release (Aspirin Low Dose) atorvastatin 40 mg tablet 40 mg PO DAILY #90 tab 02/19/19 01/13/21 Unknown carvedilol 12.5 mg tablet (Coreg) 12.5 mg PO BID 06/12/19 01/13/21 Unknown menthol 0.44 %-zinc oxide 20.6 % 1 applic TOPICAL QID PRN 06/12/19 01/13/21 Unknown topical ointment (Calmoseptine) menthol 4 % topical gel (Biofreeze 1 applic TOPICAL UD PRN 06/12/19 01/13/21 Unknown (menthol)) vit A 1,000 unit-C 200 mg-E 60 1 tab PO DAILY 06/12/19 01/13/21 Unknown unit-lutein 2 mg and minerals tablet (Ocuvite with Lutein) zinc oxide-cod liver oil 40 % 1 applic TOPICAL UD PRN 06/12/19 01/13/21 Unknown topical paste (Desitin) fexofenadine 180 mg tablet 180 mg PO DAILY 10/20/19 01/13/21 Unknown (Allergy Relief (fexofenadine)) furosemide 40 mg tablet 40 mg PO DAILY #45 tab 03/19/20 01/13/21 Unknown furosemide 80 mg tablet 40 mg PO 2XWK #30 tab 03/19/20 01/13/21 Unknown lorazepam 1 mg tablet 1 mg PO DAILY #30 tab 06/28/20 01/13/21 Unknown lorazepam 1 mg tablet 1 mg PO DAILY PRN #30 tab 06/28/20 01/13/21 Unknown loratadine 10 mg tablet 10 mg PO DAILY PRN #30 tab 08/24/20 01/13/21 Unknown levothyroxine 75 mcg tablet 75 mcg PO DAILY #30 tab 10/12/20 01/13/21 Unknown diphenoxylate-atropine 2.5 1 tab PO QID PRN #120 tab 10/20/20 01/13/21 Unknown mg-0.025 mg tablet ondansetron 4 mg disintegrating 4 mg PO Q8H PRN #30 tab 11/03/20 01/13/21 Unknown tablet docusate sodium 100 mg capsule 100 mg PO DAILY PRN 01/13/21 01/13/21 Unknown (Stool Softener) polyethylene glycol 3350 17 gram 17 g PO DAILY PRN 01/13/21 01/13/21 Unknown oral powder packet tramadol 50 mg tablet See Rx Instructions .ROUTE .COMPLEX 01/13/21 01/13/21 Unknown trazodone 50 mg tablet 50 mg PO HS 01/14/21 01/14/21 Unknown Active Medications Generic Name Dose Route Start Last Admin Trade Name Freq PRN Reason Stop Dose Admin Acetaminophen 650 mg 01/13/21 21:15 01/14/21 07:56 Acetaminophen 325 Mg Tab PO 02/12/21 21:14 650 mg BID MARY Administration Atorvastatin Calcium 40 mg 01/14/21 09:00 01/14/21 07:57 Atorvastatin 40 Mg Tab PO 02/13/21 08:59 40 mg DAILY MARY Administration Carvedilol 12.5 mg 01/13/21 21:00 01/14/21 07:56 Carvedilol 12.5 Mg Tab PO 02/12/21 20:59 12.5 mg BID MARY Administration Furosemide 40 mg 01/14/21 09:00 01/14/21 10:37 Furosemide 40 Mg Tab PO 02/13/21 08:59 40 mg DAILY MARY Administration Pantoprazole Sodium 40 mg/ 10 mls @ 5 mls/min 01/13/21 21:00 01/14/21 07:57 Syringe IV 02/12/21 20:59 5 mls/min BID MARY Administration Levothyroxine Sodium 75 mcg 01/14/21 06:30 01/14/21 05:08 Levothyroxine Sodium 75 Mcg Tablet PO 02/13/21 06:29 75 mcg DAILYBB MARY Administration Non-Formulary Medication 650 mg 01/13/21 20:47 01/14/21 07:57 Acetaminophen [Tylenol Arthritis Pain] PO 02/12/21 20:46 Not Given Q12H MARY Sertraline HCl 75 mg 01/14/21 09:00 01/14/21 07:57 Sertraline Hcl 50 Mg Tablet PO 02/13/21 08:59 75 mg DAILY MARY Administration Tramadol HCl 50 mg 01/13/21 21:15 01/14/21 07:56 Tramadol Hcl 50 Mg Tablet PO 02/12/21 21:14 50 mg BID MARY Administration NPO Date Last Intake of Fluids: 01/14/21 Time Last Intake of Fluids: 10:00 Last Intake of Fluids Comment: sips with pills Date Last Intake of Solids: 01/12/21 Time Last Intake of Solids: 18:00 Past Medical History Medical History Atrial fibrillation Cholelithiases CKD (chronic kidney disease) DVT (deep venous thrombosis) Dyslipidemia Elevated LFTs Lymphedema NSVT (nonsustained ventricular tachycardia) PE (pulmonary embolism) TIA (transient ischemic attack) "november 2012" UTI (urinary tract infection) Exercise / Class Metabolic Activity III < 4 Walking/Shop/Light housework Past Family History Family History Other Cancer Family history non-contributory Denies family history of Heart disease Past Surgical History Surgical History H/O cardiac catheterization "IN 2006 - as per patient - this was normal" Hip joint replacement status "RIGHT" History of carpal tunnel surgery History of cholecystectomy Hx of cardiac pacemaker S/P TKR (total knee replacement) "BILATERAL" Status post cystoscopy with ureteral stent placement Past Anesthesia History No Hx of Anesthesia Complications and No Family Hx of Anesthesia Complications History of PONV No Hx of PONV and No Hx of Motion Sickness Social History Smoking Status: Never smoker Do You Dip or Chew Tobacco: No Hx Alcohol Use: No Hx Substance Use: No Review of Systems Respiratory: + dyspnea on exertion Gastrointestinal: + melena Physical Exam Vital Signs Last Vital Signs Temp 36.4 C L 01/14/21 13:14 Pulse 70 01/14/21 13:14 Resp 18 01/14/21 13:14 BP 108/63 01/14/21 13:14 Pulse Ox 94 01/14/21 13:14 Constitutional + morbidly obese ENMT Mouth: no dentition abnormality Thyromental Distance: > or= 3.5 Finger Breadths Mallampati Class: II Neck normal visual inspection Respiratory normal respiratory effort Auscultation: lungs clear to auscultation bilaterally Cardiovascular Rate/Rhythm: regular rate and regular rhythm Extremities: + edema (1-2+ lower extremities) Chest (Breasts) Chest: + pacemaker Psychiatric Orientation: alert Testing Laboratory Results 01/14/21 02:58 01/14/21 08:12 PT 11.3 Seconds (9.0-12.0) 01/13/21 13:49 INR 1.1 (0.9-1.1) 01/13/21 13:49 APTT 27.3 Seconds (21.0-31.0) 01/13/21 13:49 Urine Color Yellow 01/14/21 13:00 Urine Appearance Clear (Clear) 01/14/21 13:00 Urine pH 5.5 (4.5-7.5) 01/14/21 13:00 Ur Specific [place] 1.014 (1.000-1.030) 01/14/21 13:00 Urine Protein Negative (Negative) 01/14/21 13:00 Urine Glucose (UA) Negative (Negative) 01/14/21 13:00 Urine Ketones Negative (Negative) 01/14/21 13:00 Urine Nitrite Negative (Negative) 01/14/21 13:00 Ur Leukocyte Esterase Negative (Negative) 01/14/21 13:00 Blood Type B Positive 01/13/21 14:02 Antibody Screen NEGATIVE 01/13/21 14:02
--- NOTE | 2021-01-14 13:28 | CT Scan Report ---
CT thoracic spine wo con HISTORY: 80 years-old Female thoracic back pain,?mets acute mid back pain without reported trauma COMPARISON: CT cervical spine, CT chest, abdomen and pelvis studies of same day, chest radiographs TECHNIQUE: Multiple axial CT images of the thoracic spine were obtained without the use of IV contras t. A dose lowering technique was used consistent with the principals of ALARA. FINDINGS: Demineralized appearance of the bones. Mild and mild to moderate multilevel intervertebral disc space narrowing with moderate anterior endplate spondylitic spurring and moderate facet arthrosis. Study i s motion degraded. No acute fracture, subluxation or endplate erosion identified. Mid thoracic dextro scoliosis. The imaged ribs appear intact. No suspicious bone lesions. Evaluation of the central canal and neuroforamina is better assessed by MRI. No definite paravertebral edema identified. Cardiomegal y. No pneumothorax. IMPRESSION: 1. Motion gradient exam. No acute fracture or subluxation. 2. Mid thoracic dextroscoliosis with degenerative changes as above. 3. No suspicious bone lesions identified. ACT 112: Negative or not required by law. The above report was generated using voice recognition software. It may contain grammatical, syntax o r spelling errors. Electronically signed by: Dominic Peña M.D. 01/14/2021 1:27 PM
[2021-01-14] MEDS ORDERED: PROPOFOL IV EMULSION 10 MG/ML 20 ML VIAL IV ONE (14:00)
[2021-01-14] MEDS ORDERED: LIDOCAINE 2% 2 ML VIAL/AMP(20MG/ML) INFIL ONE (14:00)
--- NOTE | 2021-01-14 14:18 | GI REPORT ---
Patient Name: Bonnie Aviles Procedure Date: 01/14/2021 2:00 PM Date of : 1940 Admit Type: Inpatient Age: 80 Gender: Female Attending MD: Raphael Sommer DO Procedure: Upper GI endoscopy Providers: Raphael Sommer DO Referring MD: Alma Rosa Demarco Md Indications: Melena Medicines: Monitored Anesthesia Care Complications: No immediate complications. Estimated Blood Loss: Estimated blood loss: none. Procedure: Pre-Anesthesia Assessment: - Prior to the procedure, a History and Physical was performed, and patient medications and allergies were reviewed. The patient's tolerance of previous anesthesia was also reviewed. The risks and benefits of the procedure and the sedation options and risks were discussed with the patient. All questions were answered, and informed consent was obtained. Prior Anticoagulants: The patient last took Eliquis (apixaban) 2 days prior to the procedure. ASA Grade Assessment: IV - A patient with severe systemic disease that is a constant threat to life. After reviewing the risks and benefits, the patient was deemed in satisfactory condition to undergo the procedure. After obtaining informed consent, the endoscope was passed under direct vision. Throughout the procedure, the patient's blood pressure, pulse, and oxygen saturations were monitored continuously. The Scope was introduced through the mouth, and advanced to the second part of duodenum. The upper GI endoscopy was accomplished without difficulty. The patient tolerated the procedure well. Findings: Mildly severe esophagitis with no bleeding was found 38 cm from the incisors. A small hiatal hernia was present. The examined duodenum was normal. Impression: - Mildly severe reflux esophagitis. - Small hiatal hernia. - Normal examined duodenum. - No specimens collected. Recommendation: - Return patient to [facility] for [facility] care. - Use Protonix (pantoprazole) 40 mg PO daily. - Advance diet as tolerated. Raphael Sommer DO 01/14/2021 2:17:59 PM This report has been signed electronically. Note Initiated On: 01/14/2021 2:00 PM Number of Addenda: 0 I attest to the content of the Intraoperative Record and orders documented therein, exceptions below {[id number]}
--- NOTE | 2021-01-14 14:29 | CT Scan Report ---
CT SCAN OF THE CHEST WITHOUT IV CONTRAST CLINICAL HISTORY: Thoracic back pain. Carcinomatosis. COMPARISON STUDY: Chest CT dated 08/15/2016. Chest x-ray dated 01/13/2021. TECHNIQUE: CT scan of the thorax was performed from the thoracic inlet to the upper abdomen. Images are reviewed in the axial, sagittal, and coronal planes. IV contrast was not administered for this ex amination as per the referring clinician. A dose lowering technique was utilized adhering to the kb ncibrisa of MANSI. The examination is degraded by motion artifact, as well as by streak artifact from the arms which could not be elevated above the chest. FINDINGS: Thyroid: Imaged portions of the thyroid gland are normal in size and attenuation. Thoracic aorta: There is mild atherosclerotic calcification of the thoracic aorta, which is normal in caliber and demonstrates standard 3-vessel arch anatomy. Heart: A cardiac AICD is present in the left chest wall. The heart is enlarged and without pericardia l effusion. Enlargement of the pulmonary arteries suggests pulmonary artery hypertension. Lungs and pleural spaces: Evaluation of the lung parenchyma is significantly compromised by motion ar tifact. There is no airspace consolidation or pleural effusion. The trachea and central airways are c lear. Scarring/atelectasis is noted at the lung bases. Mediastinum: There are mildly enlarged mediastinal lymph nodes. An AP window node measures 12 mm in s hort axis. A precarinal node measures 14 mm in short axis. Sherri: Not well assessed without IV contrast. Axillae: There is no axillary lymphadenopathy. Upper abdomen: Findings a peritoneal carcinomatosis are again seen in the upper abdomen. The liver is cirrhotic in morphology. The kidneys are atrophic. See report of abdominal CT dated 01/13/2021 for de tailed intra-abdominal findings. Skeletal structures: The skeletal structures are osteopenic. Advanced arthritic change is seen in the shoulders. Degenerative change and mild kyphoscoliosis is noted in the thoracic spine. No lytic or b lastic bony lesions are seen. IMPRESSION: 1. Streak and motion compromised examination. 2. There is no airspace consolidation or pleural effusion. 3. Cardiomegaly and AICD. 4. Findings of peritoneal carcinomatosis are again seen in the upper abdomen. 5. Mildly enlarged mediastinal lymph nodes are nonspecific. 6. Additional findings as above. ACT 112: Negative or not required by law. Electronically signed by: Gee Hamilton M.D. 01/14/2021 2:28 PM
--- NOTE | 2021-01-14 14:37 | Anesthesiology Progress Note ---
Date of Service January 14, 2021 Anesthesia Post Procedure Vital Signs Vital Signs: Temp Pulse Pulse Pulse Resp BP BP 01/14/21 14:32 69 18 94/50 L 01/14/21 14:20 65 18 101/48 L 01/14/21 13:14 97.5 F L 70 18 108/63 01/14/21 07:53 98.1 F 64 16 108/67 01/14/21 01:24 66 18 105/65 01/14/21 00:20 97.9 F 63 18 102/66 01/13/21 23:56 01/13/21 23:50 97.5 F L 67 16 91/58 L 01/13/21 23:20 97.9 F 71 16 111/69 01/13/21 22:35 97.9 F 72 18 110/67 01/13/21 22:14 97.9 F 63 18 122/70 01/13/21 20:49 97.9 F 75 18 124/71 01/13/21 20:18 70 20 120/62 01/13/21 19:27 98.1 F 71 18 118/61 01/13/21 19:15 69 24 118/61 01/13/21 19:00 71 20 114/48 L 01/13/21 18:45 79 22 107/47 L 01/13/21 18:30 78 23 111/30 L 01/13/21 18:18 67 16 111/30 L 01/13/21 18:15 76 22 127/41 L 01/13/21 18:00 77 20 122/62 01/13/21 17:45 72 23 122/39 L 01/13/21 17:30 71 19 114/43 L 01/13/21 17:18 76 20 122/39 L 01/13/21 17:16 77 26 H 126/36 L 01/13/21 17:00 77 23 111/63 01/13/21 16:45 72 24 01/13/21 16:31 70 22 104/35 L 01/13/21 16:18 70 22 104/52 L 01/13/21 16:15 70 21 103/38 L 01/13/21 16:00 70 20 112/57 L 01/13/21 15:48 70 20 109/71 01/13/21 15:45 71 19 117/69 01/13/21 15:33 80 17 141/35 H 01/13/21 15:30 68 19 137/57 L 01/13/21 15:16 98.2 F 72 18 130/33 L Pulse Ox 01/14/21 14:32 96 01/14/21 14:20 97 01/14/21 13:14 94 01/14/21 07:53 94 01/14/21 01:24 93 01/14/21 00:20 01/13/21 23:56 98 01/13/21 23:50 88 L 01/13/21 23:20 91 01/13/21 22:35 93 01/13/21 22:14 95 01/13/21 20:49 93 01/13/21 20:18 94 01/13/21 19:27 96 01/13/21 19:15 96 01/13/21 19:00 96 01/13/21 18:45 96 01/13/21 18:30 95 01/13/21 18:18 94 01/13/21 18:15 92 01/13/21 18:00 96 01/13/21 17:45 93 01/13/21 17:30 96 01/13/21 17:18 97 01/13/21 17:16 95 01/13/21 17:00 98 01/13/21 16:45 97 01/13/21 16:31 98 01/13/21 16:18 95 01/13/21 16:15 97 01/13/21 16:00 97 01/13/21 15:48 96 01/13/21 15:45 97 01/13/21 15:33 97 01/13/21 15:30 94 01/13/21 15:16 95 Pain Intensity Back: Pain Intensity: 8 Transfer of Care Handoff Completed per policy Notes Mental Status: alert / awake / arousable and participated in evaluation Patient Amnestic to Procedure: Yes Nausea / Vomiting: adequately controlled Pain: adequately controlled Airway Patency, RR, SpO2: stable & adequate BP & HR: stable & adequate Hydration State: stable & adequate Anesthetic Complications: no major complications apparent and Pt Satisfied with anesthetic care
--- NOTE | 2021-01-14 17:17 | Electrocardiogram Report ---
Test Reason : Blood Pressure : / mmHG Vent. Rate : 071 BPM Atrial Rate : 071 BPM P-R Int : 240 ms QRS Dur : 126 ms QT Int : 446 ms P-R-T Axes : 056 -49 128 degrees QTc Int : 484 ms Poor data quality, interpretation may be adversely affected Sinus rhythm with sinus arrhythmia with 1st degree A-V block Left bundle branch block Abnormal ECG When compared with ECG of 12-JUN-2019 14:41, No significant change was found Confirmed by Padilal Mujica ([id number]) on 01/14/2021 5:17:39 PM Referred By: Corinne Carter Confirmed By:Padilla Mujica
[2021-01-14] MEDS: traZODone HCL 50 MG TAB PO SCH (20:54)
[2021-01-14] MEDS: LORazepam 1 MG TAB PO SCH (20:55)
[2021-01-15] MEDS: LEVOTHYROXINE SODIUM 75 MCG TABLET PO SCH (05:37)
[2021-01-15 07:39] LABS: Basophils # (auto) 0.01 K/uL (0-0.2); Basophils % (auto) 0.2 %; Eosinophils # (auto) 0.11 K/uL (0-0.5); Hematocrit (blood only) 28.4 % (37-47); Hemoglobin 9.2 g/dL (12.0-16.0); Immature Granulocytes # (auto) 0.02 K/uL (0.00-0.02); Immature Granulocytes % (auto) 0.4 %; Lymphocytes # (auto) 0.97 K/uL (1.2-3.4); Lymphocytes % (auto) 17.4 %; Mean Corpuscular Hgb Conc 32.4 g/dL (32-36); Mean Corpuscular Volume 95.6 fL (80-100); Mean Platelet Volume 10.1 fL (7.4-10.4); Monocytes # (auto) 0.71 K/uL (0.11-0.59); Monocytes % (auto) 12.7 %; Neutrophils # (auto) 3.75 K/uL (1.4-6.5); Neutrophils % (auto) 67.3 %; Platelet Count 151 K/uL (130-400); RDW Coefficient of Variation 14.8 % (11.5-14.5); RDW Standard Deviation 51.6 fL (36.4-46.3); Red Blood Count 2.97 M/uL (4.2-5.4); White Blood Count 5.57 K/uL (4.8-10.8)
[2021-01-15 07:57] LABS: BUN Creatinine Ratio 45.2 (10-20); Calcium 8.5 mg/dl (8.5-10.1); Creatinine Clr Calc Pharmacy 31.4 ml/min; Est GFR (African American) 29.1 ml/min; Est GFR (Non-African American) 25.1 ml/min; Magnesium 2.1 mg/dl (1.8-2.4); Potassium 4.2 mmol/L (3.5-5.1)
[2021-01-15] MEDS: ACETAMINOPHEN 325 MG TAB PO SCH ×2 (08:33→21:04)
[2021-01-15] MEDS: ATORVASTATIN 40 MG TAB PO SCH (08:34)
[2021-01-15] MEDS: carvediloL 12.5 MG TAB PO SCH ×2 (08:35→21:04)
[2021-01-15] MEDS: PANTOprazole 40 MG in SYRINGE 0 ML IV SCH ×2 (08:35→21:03)
[2021-01-15] MEDS: FUROSEMIDE 40 MG TAB PO SCH (08:35)
[2021-01-15] MEDS: SERTRALINE HCL 50 MG TABLET PO SCH (08:36)
[2021-01-15] MEDS: traMADol HCL 50 MG TABLET PO SCH ×2 (08:40→21:06)
[2021-01-15] MEDS: NON-FORMULARY MEDICATION (Acetaminophen [Tylenol Arthritis Pain] 650 mg Tablet Extended Re PO SCH ×3 (08:42→21:07)
--- NOTE | 2021-01-15 11:39 | Hospitalist Progress Note ---
Date of Service January 15, 2021 Assessment & Plan (1) Acute lower GI bleeding: Plan: This patient is an 80 y/o F Hx HTN, HLD, hypothyroidism, DM II, gout, cirrhosis, CKD IV, PAF, CAD, systolic CHF. She presents with black-colored bowel movements with blood clots over the past 2 days. She has not had abdominal pain, nausea/vomiting or fevers. Initial labs are notable for hemoglobin of 8.6, down from a recent of 11.4. BUN is markedly elevated with a stable creatinine. A CT abdomen demonstrated a 6.2cm R ovarian/adnexal mass with peritoneal mets. GI bleed - a transfusion was ordered in the ER due to her cardiac history. She is now status post 2 units PRBCs and hemoglobin has come up to 9.2 and stable from yesterday With melena and elevated BUN, most likely upper GI bleed-had 2 very small stools overnight black mixed with brown-most likely bleeding has stopped Appreciate GI consultation EGD with esophagitis but no active bleeding-continue PPI twice daily It is possible that she has an AVM in the small bowel or perhaps in the more proximal colon that has bled but is now stopped. Continue regular diet No plans for colonoscopy or capsule endoscopy at this point as per my discussion with GI-likely low yield for findings on colonoscopy given that this seems like an upper GI bleed. If capsule endoscopy found something in the bowel, she would likely be high risk for any bowel resection or intervention. -Continue to hold Eliquis and aspirin-of note, she is in sinus rhythm so it is okay to hold Eliquis -Consider restarting anticoagulation with Coumadin that is more readily reversible in case has bleeding recurrence in the future-discussed this with her daughter who is a nurse who is in agreement (2) Anemia: Plan: Hemoglobin is back up to 9.2 after blood transfusion Acute blood loss anemia secondary to GI bleeding MCV is high normal-recent B12 and folate were normal in 11/2020 Follow CBC again in the morning Monitor for bleeding (3) Pelvic mass: Plan: CT abdomen/pelvis shows right adnexal 6 cm cystic and solid mass, ovarian cancer is diagnosis of exclusion CA-125 is pending No need for oncology consultation as per my discussion with the on-call oncologist until the biopsy with tissue pathology is obtained Discussed care with radiology-plan for ultrasound-guided biopsy of one of the peritoneal mets although this may prove difficult-scheduled for Sunday Follow-up with oncology after discharge (4) Gout: Plan: No acute issues (5) CAD (coronary artery disease): Plan: - no evidence of ACS - hold ASA for bleeding - cont statin, Carvedilol. (6) CKD (chronic kidney disease), stage IV: Plan: Creatinine is at baseline at 1.8-2.0 With good urine output -Avoid nephrotoxins -renally dose meds when appropriate -follow BMP -Continue Lasix (7) Chronic systolic congestive heart failure: Plan: With some volume overload with PRBC transfusion -received IV Lasix -Continue home Lasix 40 mg p.o. once daily, also takes 80 mg on 3 days a week Continue carvedilol. Daily weights Follow BMP (8) Status post placement of cardiac pacemaker: Plan: For severely reduced EF (9) Hypothyroidism: Plan: TSH normal 2.2 Continue home levothyroxine (10) Obesity (BMI 30-39.9): Plan: BMI 39 (11) Left bundle branch block (LBBB): Plan: Chronic (12) DM w/o complication type II: Plan: Most recent hemoglobin A1c 6.4% in 09/2020 Not on insulin here Blood sugars well controlled (13) Cirrhosis: Plan: Noted on CT scan abdomen/pelvis Does not use alcohol Most likely secondary to fatty liver No evidence of varices on EGD, no evidence of liver dysfunction on laboratory values (14) Atrial fibrillation: Plan: Paroxysmal atrial fibrillation Is in sinus rhythm on EKG on admission as well as on clinical examination Holding Eliquis for GI bleed and consider restarting anticoagulation with warfarin instead as above Continue home carvedilol (15) Chronic pain: Plan: Continue home tramadol 50 mg p.o. twice daily and add a every 6 hours as needed dose (16) Anxiety: Plan: Continue lorazepam at bedtime and as needed during the day Continue sertraline Continue trazodone at night Plan: DVT Prophylaxis-none given GI bleed DIspo-continued stay, plan for biopsy on Sunday, would restart anticoagulation after that, and if no rebleeding, discharge Admission and Anticipated Discharge Date Admission Date: January 13, 2021 Subjective Patient reports pain at the site of her pacemaker from being rolled over multiple times onto her sides and front for cleaning. She would like to get out of the bed to a chair today. She had 2 very small stools that were black and some brown stool. She still has the same vague abdominal pain. No nausea. She ate breakfast this morning. No chest pain or shortness of breath. I discussed her care with her daughter on the phone. Review of Systems Review of Systems: All systems reviewed & are unremarkable except as noted in HPI & below Physical Exam Constitutional: WD/WN, vitals as above + obese Eyes: + anicteric sclerae Neck: trachea midline, no thyromegaly Respiratory: normal respiratory effort, lungs clear to auscultation Cardiovascular: RRR, no murmur, no edema Chest (Breasts): Chest: normal inspection of chest Gastrointestinal (Abdomen): Inspection/Auscultation: abdomen normal to inspection and + abdominal surgical incision (Surgical scars from laparoscopic cholecystectomy) Percussion/Palpation: + abdomen tender (Diffusely mildly tender, more so in RLQ without guarding or rebound) and abdomen soft; no guarding Musculoskeletal: Extremities: extremities normal to inspection; no cyanosis and no clubbing Skin: no rashes, warm and dry Neurologic: moves all extremities and awake; no focal motor deficits Psychiatric: Orientation: alert, oriented to person, oriented to place and cooperative Results & Data Results & Data ([facility]) Vital Signs (Past 12 Hours) Vital Signs Temp Pulse Resp BP Pulse Ox 01/15/21 07:57 36.5 C 65 16 95/38 L 95 Laboratory Results 01/15/21 01/15/21 01/15/21 Range/Units 07:19 07:19 07:19 WBC 5.57 (4.8-10.8) K/uL RBC 2.97 L (4.2-5.4) M/uL Hgb 9.2 L (12.0-16.0) g/dL Hct 28.4 L (37-47) % MCV 95.6 (80-100) fL MCH 31.0 (25-34) pg MCHC 32.4 (32-36) g/dL RDW Std Deviation 51.6 H (36.4-46.3) fL RDW Coeff of Amalia 14.8 H (11.5-14.5) % Plt Count 151 (130-400) K/uL MPV 10.1 (7.4-10.4) fL Immature Gran % (Auto) 0.4 % Neut % (Auto) 67.3 % Lymph % (Auto) 17.4 % [place] % (Auto) 12.7 % Eos % (Auto) 2.0 % Baso % (Auto) 0.2 % Neut # (Auto) 3.75 (1.4-6.5) K/uL Lymph # (Auto) 0.97 L (1.2-3.4) K/uL [place] # (Auto) 0.71 H (0.11-0.59) K/uL Eos # (Auto) 0.11 (0-0.5) K/uL Baso # (Auto) 0.01 (0-0.2) K/uL Immature Gran # (Auto) 0.02 (0.00-0.02) K/uL Sodium 144 (136-145) mmol/L Potassium 4.2 (3.5-5.1) mmol/L Chloride 117 H (98-107) mmol/L Carbon Dioxide 22 (21-32) mmol/L Anion Gap 6.0 (3-11) BUN 83 H (7-18) mg/dl Creatinine 1.84 H (0.6-1.2) mg/dl Est Cr Clr Drug Dosing 31.4 ml/min Est GFR ( Amer) 29.1 ml/min Est GFR (Non-Af Amer) 25.1 ml/min BUN/Creatinine Ratio 45.2 H (10-20) Glucose 87 (70-99) mg/dl Calcium 8.5 (8.5-10.1) mg/dl Magnesium 2.1 (1.8-2.4) mg/dl Whole Bld Vitamin B1 Pending PG Care Time/CCT Total # of Minutes Spent Total Time Spent with Patient: Total time spent is greater than 50% in coordination of care (as documented) at patient's floor/unit and/or counseling patient: Coding Level of Care Code 89655 Subseq Hosp Care Lvl 2 Diagnoses Acute lower GI bleeding K92.2 Anemia D64.9 Pelvic mass R19.00 Gout M10.9 CAD (coronary artery disease) I25.10 Associated angina: without angina Coronary Disease-Associated Artery/Lesion type: [place] artery [place] vs. transplanted heart: [place] heart CKD (chronic kidney disease), stage IV N18.4 Chronic systolic congestive heart failure I50.22 Status post placement of cardiac pacemaker Z95.0 Hypothyroidism E03.9 Hypothyroidism type: acquired Obesity (BMI 30-39.9) E66.9 Left bundle branch block (LBBB) I44.7 DM w/o complication type II E11.9 Diabetes mellitus mcfp insulin use: without mcfp use Cirrhosis K74.60 Atrial fibrillation I48.0 Atrial fibrillation type: paroxysmal Chronic pain G89.29 Anxiety F41.9 (1) DM w/o complication type II Diabetes mellitus mcfp insulin use: without predatory animal exterminator use Qualified Code(s): E11.9 - Type 2 diabetes mellitus without complications (2) CAD (coronary artery disease) Associated angina: without angina Coronary Disease-Associated Artery/Lesion type: [place] artery [place] vs. transplanted heart: [place] heart Qualified Code(s): I25.10 - Atherosclerotic heart disease of [place] coronary artery without angina pectoris (3) Atrial fibrillation Atrial fibrillation type: paroxysmal Qualified Code(s): I48.0 - Paroxysmal atrial fibrillation (4) Hypothyroidism Hypothyroidism type: acquired Qualified Code(s): E03.9 - Hypothyroidism, unspecified
[2021-01-15] MEDS ORDERED: traMADol HCL 50 MG TABLET PO PRN (11:48)
[2021-01-15] MEDS: traZODone HCL 50 MG TAB PO SCH (21:04)
[2021-01-15] MEDS: LORazepam 1 MG TAB PO SCH (21:06)
[2021-01-16] MEDS: LEVOTHYROXINE SODIUM 75 MCG TABLET PO SCH (05:51)
[2021-01-16 07:42] LABS: Basophils # (auto) 0.01 K/uL (0-0.2); Basophils % (auto) 0.2 %; Eosinophils # (auto) 0.12 K/uL (0-0.5); Eosinophils % (auto) 2.2 %; Hematocrit (blood only) 28.9 % (37-47); Hemoglobin 9.2 g/dL (12.0-16.0); Immature Granulocytes # (auto) 0.02 K/uL (0.00-0.02); Immature Granulocytes % (auto) 0.4 %; Lymphocytes # (auto) 0.94 K/uL (1.2-3.4); Lymphocytes % (auto) 16.8 %; Mean Corpuscular Hemoglobin 30.5 pg (25-34); Mean Corpuscular Hgb Conc 31.8 g/dL (32-36); Mean Corpuscular Volume 95.7 fL (80-100); Mean Platelet Volume 10.8 fL (7.4-10.4); Monocytes # (auto) 0.74 K/uL (0.11-0.59); Monocytes % (auto) 13.3 %; Neutrophils # (auto) 3.75 K/uL (1.4-6.5); Neutrophils % (auto) 67.1 %; Platelet Count 173 K/uL (130-400); RDW Standard Deviation 51.7 fL (36.4-46.3); Red Blood Count 3.02 M/uL (4.2-5.4); White Blood Count 5.58 K/uL (4.8-10.8)
[2021-01-16 08:16] LABS: Calcium 8.6 mg/dl (8.5-10.1); Creatinine Clr Calc Pharmacy 33.8 ml/min; Est GFR (African American) 32.2 ml/min; Est GFR (Non-African American) 27.8 ml/min; Magnesium 1.8 mg/dl (1.8-2.4)
[2021-01-16] MEDS: PANTOprazole 40 MG in SYRINGE 0 ML IV SCH (08:28)
[2021-01-16] MEDS: SERTRALINE HCL 50 MG TABLET PO SCH (08:29)
[2021-01-16] MEDS: ACETAMINOPHEN 325 MG TAB PO SCH ×2 (08:29→20:45)
[2021-01-16] MEDS: FUROSEMIDE 40 MG TAB PO SCH (08:30)
[2021-01-16] MEDS: ATORVASTATIN 40 MG TAB PO SCH (08:30)
[2021-01-16] MEDS: carvediloL 12.5 MG TAB PO SCH ×2 (08:30→20:45)
[2021-01-16] MEDS: ONDANSETRON INJ 2 MG/ML 2 ML VIAL IV PRN (08:44)
[2021-01-16] MEDS ORDERED: FUROSEMIDE 80 MG TAB PO SCH (09:00)
[2021-01-16] MEDS ORDERED: MAGNESIUM SULFATE / D5W 1 GM/100 ML BAG IV ONE (10:00)
[2021-01-16] MEDS: traMADol HCL 50 MG TABLET PO SCH ×2 (10:21→20:47)
--- NOTE | 2021-01-16 11:36 | Hospitalist Progress Note ---
Date of Service January 16, 2021 Assessment & Plan (1) Acute lower GI bleeding: Plan: This patient is an 80 y/o F Hx HTN, HLD, hypothyroidism, DM II, gout, cirrhosis, CKD IV, PAF, CAD, systolic CHF. She presents with black-colored bowel movements with blood clots over the past 2 days prior to admission. She has not had abdominal pain, nausea/vomiting or fevers. Initial labs are notable for hemoglobin of 8.6, down from a recent of 11.4. BUN is markedly elevated with a stable creatinine. A CT abdomen demonstrated a 6.2cm R ovarian/adnexal mass with peritoneal mets. GI bleed - She is now status post 2 units PRBCs and hemoglobin has come up to 9.2 and stable again from yesterday With melena and elevated BUN, most likely upper GI bleed-had 2 very small stools overnight on 01/14 black mixed with brown, but no further BM since then- bleeding has stopped Appreciate GI consultation EGD with esophagitis but no active bleeding-continue PPI twice daily-change to po It is possible that she has an AVM in the small bowel or perhaps in the more proximal colon that has bled but is now stopped. Continue regular diet No plans for colonoscopy or capsule endoscopy at this point as per my discussion with GI-likely low yield for findings on colonoscopy given that this seems like an upper GI bleed. If capsule endoscopy found something in the bowel, she would likely be high risk for any bowel resection or intervention. -Continue to hold Eliquis and aspirin-of note, she is in sinus rhythm so it is okay to hold Eliquis -Consider restarting anticoagulation with Coumadin that is more readily reversible in case has bleeding recurrence in the future-discussed this with her daughter who is a nurse who is in agreement. Patient also in agreement -follow CBC in AM (2) Anemia: Plan: Hemoglobin is back up to 9.2 after blood transfusion and stable Acute blood loss anemia secondary to GI bleeding MCV is high normal-recent B12 and folate were normal in 11/2020 Follow CBC again in the morning Monitor for bleeding -continue holding AC and ASA as above (3) Pelvic mass: Plan: CT abdomen/pelvis shows right adnexal 6 cm cystic and solid mass, ovarian cancer is diagnosis of exclusion CA-125 is pending Does have +TTP in RLQ on exam No need for oncology consultation as per my discussion with the on-call oncologist until the biopsy with tissue pathology is obtained Discussed care with radiology-plan for ultrasound-guided biopsy of one of the peritoneal mets although this may prove difficult-scheduled for Sunday Follow-up with oncology after discharge most likely if cannot get enough tissue for dx from US guided bx, would need outpt referral to [facility] tramadol as needed for pain (4) Gout: Plan: No acute issues (5) CAD (coronary artery disease): Plan: - no evidence of ACS - hold ASA for bleeding - cont statin, Carvedilol. (6) CKD (chronic kidney disease), stage IV: Plan: Creatinine is at baseline at 1.6-2.0 With good urine output -Avoid nephrotoxins -renally dose meds when appropriate -follow BMP -Continue Lasix at home doses (7) Chronic systolic congestive heart failure: Plan: With some volume overload with PRBC transfusion -received IV Lasix -Continue home Lasix 40 mg p.o. once daily, also takes 80 mg on 2 days a week Continue carvedilol. Daily weights Follow BMP (8) Status post placement of cardiac pacemaker: Plan: For severely reduced EF, tachy-bradycardia, with AICD (9) Hypothyroidism: Plan: TSH normal 2.2 Continue home levothyroxine (10) Obesity (BMI 30-39.9): Plan: BMI 39 (11) Left bundle branch block (LBBB): Plan: Chronic (12) DM w/o complication type II: Plan: Most recent hemoglobin A1c 6.4% in 09/2020 Not on insulin here Blood sugars well controlled (13) Cirrhosis: Plan: Noted on CT scan abdomen/pelvis Does not use alcohol Most likely secondary to fatty liver No evidence of varices on EGD, no evidence of liver dysfunction on laboratory values (14) Atrial fibrillation: Plan: Paroxysmal atrial fibrillation Is in sinus rhythm on EKG on admission as well as on clinical examination Holding Eliquis for GI bleed and consider restarting anticoagulation with warfarin instead as above-would start coumadin after biopsy and no bridging needed Continue home carvedilol (15) Chronic pain: Plan: Continue home tramadol 50 mg p.o. twice daily and add a every 6 hours as needed dose (16) Anxiety: Plan: Continue lorazepam at bedtime and as needed during the day Continue sertraline Continue trazodone at night (17) Nausea: Plan: chronic, daily, perhaps related to ovarian CA? added Zofran prn, takes po Zofran at home almost daily perhaps related to pill burden is what patient thinks check KUB but is passing flatus, low concern for obstruction Plan: DVT Prophylaxis-none given GI bleed DIspo-continued stay, plan for biopsy on Sunday, would restart anticoagulation after that, and if no rebleeding, discharge Sunday or Sunday to [facility] Admission and Anticipated Discharge Date Admission Date: January 13, 2021 Subjective having nausea this AM but reports she has nausea every single day at home and usually takes po Zofran. Nausea is related to taking "13 pills in the morning." Ambulated around the room tday and felt good with that. No melena or BM at all since smear yesterday. We discussed plan for biopsy tomorrow and then home either Sun-Sunday depending on hos she's doing after biopsy and what hgb is, etc. Discussed possibility of having to see [facility] as outpt if not enough sample obtained on US-guided bx tomorrow. She is also agreeable to switching to coumadin from Eliquis Review of Systems Review of Systems: All systems reviewed & are unremarkable except as noted in HPI & below Physical Exam Constitutional: WD/WN, vitals as above + obese Eyes: + anicteric sclerae Neck: trachea midline, no thyromegaly Respiratory: normal respiratory effort, lungs clear to auscultation Cardiovascular: RRR, no murmur, no edema Chest (Breasts): Chest: normal inspection of chest Gastrointestinal (Abdomen): Inspection/Auscultation: abdomen normal to inspection and + abdominal surgical incision (Surgical scars from laparoscopic cholecystectomy) Percussion/Palpation: + abdomen tender (mildly tender in RLQ without guarding or rebound) and abdomen soft; no guarding Musculoskeletal: Extremities: extremities normal to inspection; no cyanosis and no clubbing Skin: no rashes, warm and dry Neurologic: moves all extremities and awake; no focal motor deficits Psychiatric: Orientation: alert, oriented to person, oriented to place and cooperative Lymphatic: no lymphedema Results & Data Results & Data ([facility]) Vital Signs (Past 12 Hours) Vital Signs Temp Pulse Resp BP BP Pulse Ox 01/16/21 08:30 36.5 C 66 16 111/72 95 01/16/21 08:05 36.6 C 65 20 128/71 128/71 93 Laboratory Results 01/16/21 06:59 01/16/21 06:59 PG Care Time/CCT Total # of Minutes Spent Total Time Spent with Patient: Total time spent is greater than 50% in coordination of care (as documented) at patient's floor/unit and/or counseling patient: Coding Level of Care Code 91107 Subseq Hosp Care Lvl 3 Diagnoses Acute lower GI bleeding K92.2 Anemia D64.9 Pelvic mass R19.00 Gout M10.9 CAD (coronary artery disease) I25.10 Coronary Disease-Associated Artery/Lesion type: douglas artery [place] vs. transplanted heart: douglas heart Associated angina: without angina CKD (chronic kidney disease), stage IV N18.4 Chronic systolic congestive heart failure I50.22 Status post placement of cardiac pacemaker Z95.0 Hypothyroidism E03.9 Hypothyroidism type: acquired Obesity (BMI 30-39.9) E66.9 Left bundle branch block (LBBB) I44.7 DM w/o complication type II E11.9 Diabetes mellitus exterminator insulin use: without exterminator use Cirrhosis K74.60 Atrial fibrillation I48.0 Atrial fibrillation type: paroxysmal Chronic pain G89.29 Anxiety F41.9 Nausea R11.0 (1) CAD (coronary artery disease) Coronary Disease-Associated Artery/Lesion type: douglas artery [place] vs. transplanted heart: douglas heart Associated angina: without angina Qualified Code(s): I25.10 - Atherosclerotic heart disease of douglas coronary artery without angina pectoris (2) Hypothyroidism Hypothyroidism type: acquired Qualified Code(s): E03.9 - Hypothyroidism, unspecified (3) DM w/o complication type II Diabetes mellitus exterminator insulin use: without exterminator use Qualified Code(s): E11.9 - Type 2 diabetes mellitus without complications (4) Atrial fibrillation Atrial fibrillation type: paroxysmal Qualified Code(s): I48.0 - Paroxysmal at rial fibrillation
--- NOTE | 2021-01-16 12:21 | XRay Report ---
KUB HISTORY: nausea,recent GI bleed COMPARISON: KUB 09/08/2016. Abdomen and pelvis CT 01/13/2021. FINDINGS: The bowel gas pattern is unremarkable. There are no dilated loops of small bowel to suggest an obstruction. No renal calculi. No ureteral calculi. No pneumoperitoneum or pneumatosis. There is a right total arthroplasty. Vascular calcifications are noted. Prior cholecystectomy. Small to moder ate amount of well-formed stool seen within the colon. Pacemaker wires are noted. There are degenerat anyi changes within the lumbar spine, unchanged. IMPRESSION: No evidence for bowel obstruction. Small to moderate amount of well-formed stool within the colon. ACT 112: Negative or not required by law. Electronically signed by: Markus Escamilla M.D. 01/16/2021 12:19 PM
[2021-01-16 20:00] LABS: Hematocrit (blood only) 32.4 % (37-47); Hemoglobin 10.3 g/dL (12.0-16.0); Mean Corpuscular Hemoglobin 30.7 pg (25-34); Mean Corpuscular Hgb Conc 31.8 g/dL (32-36); Mean Corpuscular Volume 96.4 fL (80-100); Mean Platelet Volume 10.7 fL (7.4-10.4); Platelet Count 188 K/uL (130-400); RDW Standard Deviation 51.9 fL (36.4-46.3); Red Blood Count 3.36 M/uL (4.2-5.4); White Blood Count 7.31 K/uL (4.8-10.8)
[2021-01-16] MEDS: PANTOprazole 40 MG TAB PO SCH (20:45)
[2021-01-16] MEDS: traZODone HCL 50 MG TAB PO SCH (20:45)
[2021-01-16] MEDS: LORazepam 1 MG TAB PO SCH (22:25)
[2021-01-17] MEDS: LEVOTHYROXINE SODIUM 75 MCG TABLET PO SCH (07:03)
[2021-01-17] MEDS: carvediloL 12.5 MG TAB PO SCH (07:55)
[2021-01-17] MEDS: PANTOprazole 40 MG TAB PO SCH (07:57)
[2021-01-17] MEDS: SERTRALINE HCL 50 MG TABLET PO SCH (07:57)
[2021-01-17] MEDS: ATORVASTATIN 40 MG TAB PO SCH (07:58)
[2021-01-17] MEDS: ACETAMINOPHEN 325 MG TAB PO SCH (07:58)
[2021-01-17] MEDS: ONDANSETRON INJ 2 MG/ML 2 ML VIAL IV PRN (08:02)
[2021-01-17] MEDS: traMADol HCL 50 MG TABLET PO SCH (08:02)
[2021-01-17 08:09] LABS: Basophils # (auto) 0.01 K/uL (0-0.2); Basophils % (auto) 0.2 %; Eosinophils # (auto) 0.14 K/uL (0-0.5); Eosinophils % (auto) 2.3 %; Hematocrit (blood only) 30.3 % (37-47); Hemoglobin 9.6 g/dL (12.0-16.0); Immature Granulocytes # (auto) 0.01 K/uL (0.00-0.02); Immature Granulocytes % (auto) 0.2 %; Lymphocytes # (auto) 1.37 K/uL (1.2-3.4); Lymphocytes % (auto) 22.4 %; Mean Corpuscular Hemoglobin 30.1 pg (25-34); Mean Corpuscular Hgb Conc 31.7 g/dL (32-36); Mean Platelet Volume 10.5 fL (7.4-10.4); Monocytes # (auto) 0.83 K/uL (0.11-0.59); Monocytes % (auto) 13.6 %; Neutrophils # (auto) 3.75 K/uL (1.4-6.5); Neutrophils % (auto) 61.3 %; Platelet Count 180 K/uL (130-400); RDW Coefficient of Variation 14.9 % (11.5-14.5); RDW Standard Deviation 50.7 fL (36.4-46.3); Red Blood Count 3.19 M/uL (4.2-5.4); White Blood Count 6.11 K/uL (4.8-10.8)
[2021-01-17 08:45] LABS: BUN Creatinine Ratio 30.6 (10-20); Calcium 8.6 mg/dl (8.5-10.1); Creatinine Clr Calc Pharmacy 26.8 ml/min; Est GFR (African American) 24.4 ml/min; Magnesium 2.4 mg/dl (1.8-2.4); Potassium 4.1 mmol/L (3.5-5.1)
[2021-01-17] MEDS ORDERED: FUROSEMIDE 80 MG TAB PO SCH (09:00)
--- NOTE | 2021-01-17 10:12 | Ultrasound Report ---
ULTRASOUND-GUIDED FINE-NEEDLE ASPIRATION AND OMENTAL MASS HISTORY: Ovarian mass. Omental carcinomatosis. US-guided biopsy omental carcinomatosis COMPARISON: Abdomen and pelvis CT 01/13/2021 PROCEDURE: Written informed consent was obtained. The neck was prepped and draped in the usual steril e fashion. 1% lidocaine was used for local anesthesia. A total of 2 passes using a 22-gauge and 20-g auge spinal needle were made through the left mid abdominal omental mass under ultrasound guidance. S pecimens were given to the on-site pathologist who determined adequate tissue for diagnosis. The kun ent tolerated the procedure well. There were no immediate complications. IMPRESSION: Successful ultrasound-guided fine-needle aspiration of a left mid abdominal omental mass. ACT 112: Negative or not required by law. Electronically signed by: Markus Escamilla M.D. 01/17/2021 10:11 AM
[2021-01-17] MEDS ORDERED: WARFARIN SOD 5 MG TAB PO ONE (14:07)
--- NOTE | 2021-01-17 14:11 | Discharge Summary ---
Date of Service January 17, 2021 Admission HPI Per Admitting Provider 80 y/o F Hx HTN, HLD, hypothryoidism, DM II, gout, cirrhosis, CKD IV, PAF, CAD, systolic CHF. She presents with black-colored bowel movements with blood clots over the past 2 days. She has not had abdominal pain, nausea/vomiting or fevers. Initial labs are notable for hemoglobin of 8.6, down from a recent of 11.4. BUN is markedly elevated with a stable creatinine. A CT abdomen demonstrated a 6.2cm R ovarian/adnexal mass with peritoneal mets. PMH: 1) HTN 2) HLD 3) DM II 4) CKD IV 5) PAF 6) Systolic CHF - ischemic cardiomyopathy - EF 30-35% 7) Gout 8) Cirrhosis 9) CAD - 100% PDA 2007 10) Cerebrovascular e with 100% LICA stenosis - histroy of TIA 11) Hypothyroidism 12) Morbid obesity 13) LBBB Surgical: 1) Pacer/defib 2) BL TKA 3) R REYNA Social: Does not drink or smoke Family: Mother due to ovarian CA Principal Diagnosis GI bleeding, anemia Pelvic mass Discharge Exam Constitutional well developed, well nourished, + obese and comfortable; no acute distress Neck trachea midline, no thyromegaly Respiratory normal respiratory effort, lungs clear to auscultation Cardiovascular RRR, no murmur, no edema Gastrointestinal (Abdomen) normal bowel sounds, soft, nontender, no hepatosplenomegaly Musculoskeletal no cyanosis or clubbing, extremities motor strength 5/5 Skin no rashes, warm and dry Neurologic CN's II-XI intact bilaterally, moves all extremities and awake; no focal motor deficits Psychiatric A+Ox3, euthymic affect Discharge Data Allergies Allergy/AdvReac Type Severity Reaction Status Date / Time montelukast Allergy Unknown Unknown Unverified 01/13/21 15:15 Sulfa (Sulfonamide Allergy Unknown Unknown Unverified 01/13/21 15:15 Antibiotics) adhesive AdvReac Intermediate RASH Verified 01/13/21 15:15 morphine AdvReac Intermediate VOMITING Verified 01/13/21 15:15 Consultations 01/13/21 14:57 Consult Gastroenterology Stat 01/13/21 21:28 Consult Gastroenterology Routine Procedures Performed Operation Date: 01/14/21 15:30 Actual Procedures p Esophagogastroduodenoscopy - Raphael G. Case, DO Ordered Studies 01/13/21 13:42 CT abd pelvis wo con Stat 01/14/21 12:11 CT cervical spine wo con Routine 01/14/21 12:17 CT chest diagnostic wo con Routine CT thoracic spine wo con Routine 01/17/21 07:00 US FNA w/img 1st lesion Routine Hospital Course (1) GI bleed: This patient is an 80 y/o F Hx HTN, HLD, hypothyroidism, DM II, gout, cirrhosis, CKD IV, PAF, CAD, systolic CHF. She presents with black-colored bowel movements with blood clots over the past 2 days prior to admission. She has not had abdominal pain, nausea/vomiting or fevers. Initial labs are notable for hemoglobin of 8.6, down from a recent of 11.4. BUN is markedly elevated with a stable creatinine. A CT abdomen demonstrated a 6.2cm R ovarian/adnexal mass with peritoneal mets. GI bleed - She is now status post 2 units PRBCs and hemoglobin has come up to 9.2 on 01/16 and then 9.6 on 01/17, stable With melena and elevated BUN, most likely upper GI bleed-had 2 very small stools overnight on 01/14 black mixed with brown, but no further BM since then- bleeding has stopped Appreciate GI consultation EGD with esophagitis but no active bleeding-continue PPI twice daily-change to po Continue regular diet No plans for colonoscopy or capsule endoscopy at this point as per my discussion with GI-likely low yield for findings on colonoscopy given that this seems like an upper GI bleed. If capsule endoscopy found something in the bowel, she would likely be high risk for any bowel resection or intervention. -resume aspirin -resume anticoagulation but change from Eliquis to Coumadin, she was on Coumadin for 40 years, feels comfortable managing this, daughter agrees with plan at the bedside will give 5mg Warfarin on day of discharge and then give 3mg and 2mg alternating as this was what she used to use, can get INR done as outpatient, defer to either PCP or vendor management consultant to manage INR (2) Anemia: Hemoglobin is back up to 9.6 after blood transfusion, stable for 72 hours Acute blood loss anemia secondary to GI bleeding MCV is high normal-recent B12 and folate were normal in 11/2020 (3) Pelvic mass: CT abdomen/pelvis shows right adnexal 6 cm cystic and solid mass, ovarian cancer is diagnosis of exclusion CA-125 is elevated Does have +TTP in RLQ on exam No need for oncology consultation inpatient, will follow up with Dr. Johnson in clinic ultrasound-guided biopsy of the peritoneal mets done on 01/17 pathology will take a few days, follow up with results with oncology if cannot get enough tissue for dx from US guided bx, would need outpt referral to [facility] tramadol as needed for pain, new script given for 50mg q8 PRN (4) Gout: No acute issues (5) CAD (coronary artery disease): - no evidence of ACS - resume aspirin as bleeding stopped - cont statin, Carvedilol. (6) CKD (chronic kidney disease), stage IV: Creatinine is at baseline at 2.1 With good urine output -Avoid nephrotoxins -renally dose meds when appropriate -follow BMP -Continue Lasix at home doses (7) Chronic systolic congestive heart failure: With some volume overload with PRBC transfusion -received IV Lasix -Continue home Lasix 40 mg p.o. once daily, also takes 80 mg on 2 days a week Continue carvedilol. Daily weights Follow BMP (8) Status post placement of cardiac pacemaker: For severely reduced EF, tachy-bradycardia, with AICD (9) Hypothyroidism: TSH normal 2.2 Continue home levothyroxine (10) Obesity (BMI 30-39.9): BMI 39 (11) Left bundle branch block (LBBB): Chronic (12) DM w/o complication type II: Most recent hemoglobin A1c 6.4% in 09/2020 Not on insulin here Blood sugars well controlled (13) Cirrhosis: Noted on CT scan abdomen/pelvis Does not use alcohol Most likely secondary to fatty liver No evidence of varices on EGD, no evidence of liver dysfunction on laboratory values (14) Atrial fibrillation: Paroxysmal atrial fibrillation Is in sinus rhythm on EKG on admission as well as on clinical examination change to Coumadin for anticoagulation Continue home carvedilol (15) Chronic pain: Continue home tramadol 50 mg p.o. twice daily and add a every 6 hours as needed dose (16) Anxiety: Continue lorazepam at bedtime and as needed during the day Continue sertraline Continue trazodone at night (17) Nausea: chronic, daily, perhaps related to ovarian CA? added Zofran prn, takes po Zofran at home almost daily perhaps related to pill burden is what patient thinks check KUB but is passing flatus, low concern for obstruction doing better on discharge DVT Prophylaxis-none given GI bleed DIspo- back to [facility] Total Time Total Time Spent Total Time Spent (In Minutes): 35 Total Time Includes: Examination of the Patient, Discharge Planning and Medication Reconciliation Discharge Plan Discharge Items Patient Disposition: Personal [facility] Reason For Visit: GI BLEED Discharge Diagnosis: GI bleed Pelvic mass Condition on Discharge: Good Goals: follow up with oncology in clinic, follow up biopsy results INR 2-2.5 on Coumadin Activity: Resume your previous activity Weightbearing: Full weightbearing Non-emergency contact: Primary Care Provider Call non-emergency contact if: you have any medication questions Follow-up/Referrals: [facility] [Primary Care Provider] - (one week) Diet: Heart Healthy Addtl Attending Provider Instructions: Medications: - WARFARIN: gave 5mg prior to discharge on 01/17, recommend taking 2mg MWF and 3mg on TuThSaSu, follow INR closely, will provide standing order, have cardiology manage? - ULTRAM: changed to 50mg q8 as needed for pain, chronic issue, now more pain with pelvic mass - PROTONIX: 40mg twice a day for 4 weeks then once daily GI bleeding, suspected upper GI bleed based on elevated BUN and black stools bleeding stopped EGD showed esophagitis hemoglobin is stable, 9.6 today continue on Protonix changed anticoagulation to Coumadin since it can be reversed Pelvic mass: biopsy of lymph nodes today, 01/17/21, results will take a few days of note, CA-125 level was elevated at 269, normal is less than 40, this can be indicative of ovarian cancer but need the biopsy for definitive diagnosis follow up with Dr. Johnson for further recommendations, potential referral to gynecology oncologist at tertiary care Pending Studies at Discharge: Yes Studies:: biopsy results from lymph nodes on 01/17/21 Stand-Alone Forms: [employer] Opioid Pain Management, Smoking Cessation Skilled Items Patient informed of condition?: Yes DNR: Yes Discharge Level of Care: Other Communicable Disease: No Discharge Prognosis: Stable Lines: None Urinary Catheter: No Medications and DC Order Prescriptions: New pantoprazole 40 mg Tablet,Delayed Release (Dr/Ec) 40 mg PO BID 30 Days Qty: 60 RF: 3 tramadol 50 mg tablet 50 mg PO Q8H PRN (Reason: pain) Qty: 60 RF: 0 warfarin 2 mg tablet 2 mg PO Q OTHER DAY Qty: 30 RF: 1 warfarin 3 mg tablet 3 mg PO Q OTHER DAY Qty: 30 RF: 1 Continued atorvastatin 40 mg tablet 40 mg PO DAILY Qty: 90 RF: 1 furosemide 40 mg tablet 40 mg PO DAILY Qty: 45 RF: 5 furosemide 80 mg tablet 40 mg PO 2XWK Qty: 30 RF: 0 lorazepam 1 mg tablet 1 mg PO DAILY Qty: 30 RF: 5 lorazepam 1 mg tablet 1 mg PO DAILY PRN (Reason: Anxiety) Qty: 30 RF: 2 loratadine 10 mg tablet 10 mg PO DAILY PRN (Reason: allergy symptoms) Qty: 30 RF: 0 levothyroxine 75 mcg tablet 75 mcg PO DAILY Qty: 30 RF: 11 diphenoxylate-atropine 2.5-0.025 mg tablet 1 tab PO QID PRN (Reason: Diarrhea) Qty: 120 RF: 3 ondansetron 4 mg tablet,disintegrating 4 mg PO Q8H PRN (Reason: Nausea) Qty: 30 RF: 0 fexofenadine [Allergy Relief (fexofenadine)] 180 mg tablet 180 mg PO DAILY RF: 0 aspirin [Aspirin Low Dose] 81 mg tablet,delayed release (DR/EC) 81 mg PO DAILY RF: 0 amoxicillin 500 mg Capsule 2,000 mg PO DIRECTED PRN (Reason: Prophylaxis) RF: 0 acetaminophen [Tylenol Arthritis Pain] 650 mg Tablet Extended Release 650 mg PO Q12H RF: 0 sertraline 50 mg Tablet 75 mg PO DAILY RF: 0 multivitamin Tablet,Chewable 2 tab PO DAILY RF: 0 carvedilol [Coreg] 12.5 mg tablet 12.5 mg PO BID RF: 0 Ocuvite with Lutein 1,000 unit-200 mg-60 unit-2 mg Tablet 1 tab PO DAILY RF: 0 menthol-zinc oxide [Calmoseptine] 0.44-20.6 % Ointment 1 applic TOPICAL QID PRN (Reason: FLARE UPS) RF: 0 Desitin 40 % Paste 1 applic TOPICAL UD PRN (Reason: IRRITATION) RF: 0 Biofreeze (menthol) 4 % Gel 1 applic TOPICAL UD PRN (Reason: Pain) RF: 0 polyethylene glycol 3350 17 gram Powder In Packet 17 g PO DAILY PRN (Reason: Constipation) RF: 0 docusate sodium [Stool Softener] 100 mg Capsule 100 mg PO DAILY PRN (Reason: Constipation) RF: 0 trazodone 50 mg Tablet 50 mg PO HS RF: 0 Discontinued Eliquis 2.5 mg Tablet 2.5 mg PO BID Qty: 60 RF: 0 tramadol 50 mg tablet See Rx Instructions .ROUTE .COMPLEX RF: 0 Discharge Orders: Discharge Order (Routine); Ordered 01/17/21 Ordered By: Alexey De La Torre/Other Patient Handouts: What to Know When TakingWarfarin Admission Data Admit Date/Time: 01/13/21 14:54 Attending Provider: Alexey Elias Admit Provider: Alonso Oviedo Primary Care Provider: Abdoul Carter,[facility], [facility] Other Providers: Raphael Sommer ; Grazyna Roach ; Freida Arzate ; Orlando Elliott Other Interventions: Discharge Summary Assessment (RN) Last Done: 01/17/21 15:37 Coding Level of Care Code D/C DAY MANAGEMENT >30 MINS Diagnoses Anemia D64.9 Pelvic mass R19.00 Gout M10.9 CAD (coronary artery disease) I25.10 Associated angina: without angina Coronary Disease-Associated Artery/Lesion type: wrangell artery [place] vs. transplanted heart: [place] heart CKD (chronic kidney disease), stage IV N18.4 Chronic systolic congestive heart failure I50.22 Status post placement of cardiac pacemaker Z95.0 Hypothyroidism E03.9 Hypothyroidism type: acquired Obesity (BMI 30-39.9) E66.9 Left bundle branch block (LBBB) I44.7 DM w/o complication type II E11.9 Diabetes mellitus termination clerk insulin use: without termination clerk use Cirrhosis K74.60 Atrial fibrillation I48.0 Atrial fibrillation type: paroxysmal Chronic pain G89.29 Anxiety F41.9 Nausea R11.0 GI bleed K92.2
[2021-01-18] MEDS ORDERED: FUROSEMIDE 40 MG TAB PO SCH (09:00)
--- NOTE | 2021-01-28 08:42 | Coding Query ---
CODING QUERY To promote full compliance with coding requirements relating to patient care, provider participation is requested in all cases of bathhouse keeper uncertainty. Please assist us with the question(s) below: Coding Question(s): Patient admitted with melena. Pelviic mass with peritoneal metastasis. Please document, if known or suspected, the etiology of the GI bleed. Thanks for your help! Hal Cisneros [facility] Physician's Response(s): etiology of bleed unknown at this time Principal Diagnosis: "that condition established after study, to be chiefly responsible for occasioning the admission of the patient to the hospital for care." Co-Existing Principal Diagnosis: "when two or more diagnoses equally meet the criteria for principal diagnosis as determined by the circumstances of admission, diagnostic work up, and/or therapy provided, and the Alphabetic Index, Tabular List, or another coding guideline does not provide sequencing direction, any one of the diagnoses may be sequenced first." "When the physician has documented what appears to be a current diagnosis in the body of the record, but has not included the diagnosis in the final diagnostic statement, the physician should be asked whether the diagnosis should be added." (Source Coding Clinic 2 QTR90. p3-4) DESTIN
== END 2021-01-17 16:33 | disposition home or self-care (01) | DRG 378 ==
LOC: ED 12:22 → 3W 14:54 → SUATTDRO 14:54 → 3W 19:35